=== PATIENT | male | born 1940 | race Caucasian/White ===

== ENCOUNTER 2019-01-03 11:06 | Inpatient (IN) ==
[2019-01-03] MEDS ORDERED: ALBUT/IPRATROP 3MG/0.5MG NEB 3 ML VIAL NEB STA (11:43)
[2019-01-03] MEDS ORDERED: methylPREDNISolone 125 MG/2 ML VIAL IV STA (11:43)
[2019-01-03 11:55] LABS: Basophils # (auto) 0.02 K/uL (0-0.2); Basophils % (auto) 0.1 %; Eosinophils # (auto) 0.02 K/uL (0-0.5); Eosinophils % (auto) 0.1 %; Hematocrit (blood only) 36.7 % (42-52); Hemoglobin 12.8 g/dL (14.0-18.0); Immature Granulocytes # (auto) 0.23 K/uL (0.00-0.02); Immature Granulocytes % (auto) 1.3 %; Lymphocytes # (auto) 1.16 K/uL (1.2-3.4); Lymphocytes % (auto) 6.4 %; Mean Corpuscular Hemoglobin 28.9 pg (25-34); Mean Corpuscular Hgb Conc 34.9 g/dL (32-36); Mean Corpuscular Volume 82.8 fL (80-100); Mean Platelet Volume 9.4 fL (7.4-10.4); Neutrophils # (auto) 14.75 K/uL (1.4-6.5); Neutrophils % (auto) 81.1 %; Platelet Count 427 K/uL (130-400); RDW Coefficient of Variation 13.7 % (11.5-14.5); RDW Standard Deviation 41.7 fL (36.4-46.3); Red Blood Count 4.43 M/uL (4.7-6.1); White Blood Count 18.18 K/uL (4.8-10.8)
[2019-01-03] MEDS ORDERED: SODIUM CHLORIDE 0.9% 1000ML 1,000 ML IV SCH (12:00)
[2019-01-03 12:04] LABS: INR 1.2 (0.9-1.1); Partial Thromboplastin Ratio 1.1; Partial Thromboplastin Time 30.8 Seconds (21.0-31.0); Prothrombin Time 12.6 Seconds (9.0-12.0)
--- NOTE | 2019-01-03 12:10 | XRay Report ---
XR chest 1V portable HISTORY: Shortness of breath. COMPARISON: None. FINDINGS: No pleural effusions. No pneumothorax. The heart is mildly enlarged. Focal left upper lobe airspace opacity. Additional small patchy airspace opacities within the right upper lobe and left nargis g base. There is mild interstitial thickening within the lungs. IMPRESSION: Bilateral airspace opacities, left greater than right. This favors a pneumonia. Recommend follow-up t o ensure resolution. There is also mild interstitial thickening and cardiomegaly. Superimposed pulmon emily vascular congestion cannot be excluded. Electronically signed by: Edward Phoenix M.D. 01/03/2019 12:08 PM
[2019-01-03 12:14] LABS: Albumin Level 2.6 gm/dl (3.4-5.0); BUN Creatinine Ratio 17.7 (10-20); Creatinine Clr Calc Pharmacy 64.7 ml/min; Est GFR (African American) 75.8; Est GFR (Non-African American) 65.4; Potassium 3.6 mmol/L (3.5-5.1)
[2019-01-03 12:33] LABS: Albumin Globulin Ratio 0.6 (0.9-2); Bilirubin,Total 1.4 mg/dl (0.2-1); Globulin 4.7 gm/dl (2.5-4.0); Total Protein 7.3 gm/dl (6.4-8.2); Troponin I 0.058 ng/ml (0-0.045)
[2019-01-03 13:14] LABS: Influenza A virus by PCR Neg for Influ A (Neg); Influenza B virus by PCR Neg for Influ B (Neg)
[2019-01-03] MEDS ORDERED: LEVOFLOXACIN/D5W 750 MG/150 ML BAG IV SCH (13:15)
[2019-01-03] MEDS ORDERED: OPTIRAY 320 125ml IV PRN (13:46)
--- NOTE | 2019-01-03 13:56 | CT Scan Report ---
CT ANGIOGRAM OF THE CHEST CLINICAL HISTORY: Fever, cough, shortness of breath. Possible acute pulmonary embolism. COMPARISON STUDY: Chest x-ray dated 01/03/2019 TECHNIQUE: Following the IV administration of 120 mL of Optiray-320, CT angiogram of the thorax was p erformed from the thoracic inlet to the lung bases utilizing the pulmonary embolus protocol. Images a re reviewed in the axial, sagittal, and coronal planes. IV contrast was administered without complica tion. MIP imaging was performed. A dose lowering technique was utilized adhering to the principles o f ALARA. CT DOSE: 695.39 mGy.cm FINDINGS: Visualized portions of the upper abdomen reveal probable cholelithiasis. There are borderline enlarged mediastinal lymph nodes, likely reactive. The ascending thoracic aorta measures 36 mm. There were no pulmonary artery filling defects to indicate acute pulmonary embolism. There are small bilateral pleural effusions. There are bilateral multilobar pulmonary airspace opacities, likely secondary to a multifocal pneumon ia. The area of densest parenchymal consolidation is within the left upper lobe. IMPRESSION: 1. No evidence of acute pulmonary embolism 2. Multifocal areas of parenchymal consolidation suggestive of a multilobar pneumonia. Clinical corre lation and imaging subsequent to treatment is recommended in follow-up 3. Small bilateral pleural effusions 4. Mildly prominent mediastinal lymph nodes likely reactive 5. Suspected cholelithiasis Electronically signed by: Kike Lim M.D. 01/03/2019 1:55 PM
--- NOTE | 2019-01-03 15:05 | Emergency Department Note ---
Entered by Lashon Celis acting as a scribe for Tammy House MD History of Present Illness General Chief complaint: Cough Stated complaint: DOC REF pneumonia Source: patient History of Present Illness Onset (ago): hour(s) (several) Location: chest Pain Consistency: + other (resolving) Maximum Pain Intensity: 0 Quality: + other (low oxygen level) Associated symptoms: + fever/chills The patient is a 78 year old male who presents to the Emergency Room with complaints of a resolving low oxygen level of 88 several hours ago this morning while at an appointment with his PCP. The patients states he is currently being treated for pneumonia. He notes taking a z-pack and medication beginning two days ago. The patient reports a fever of 101.9 this morning. He reports a history of smoking, stating he quit 25 years ago. The patient states he received a flu shot this year. Home Medications Home Medications Medication Instructions Recorded Confirmed Type atorvastatin 80 mg tablet 80 mg PO HS tab 11/26/18 01/03/19 History lisinopril 5 mg tablet 5 mg PO DAILY tab 11/26/18 01/03/19 History aspirin 81 mg PO DAILY 01/03/19 01/03/19 History metoprolol succinate 50 mg PO DAILY 01/03/19 01/03/19 History omega 9-crx-eyt-fish oil [Fish Oil] 1 cap PO BID 01/03/19 01/03/19 History Allergies Allergy/AdvReac Type Severity Reaction Status Date / Time Penicillins Allergy Intermediate TONGUE Unverified 01/03/19 12:38 SWELLING Past Med/Surg History Medical History HTN (hypertension) (Chronic) Systolic CHF (Chronic) Ischemic cardiomyopathy (Chronic) CAD (coronary artery disease) (Chronic) 1994-anterior wall [place], no intervention Dyslipidemia (Chronic) DM type 2 (diabetes mellitus, type 2) (Chronic) Surgical History History of cataract surgery (Chronic) History of appendectomy (Chronic) Family History Sister Multiple myeloma Brother Heart disease Social History Preferred Language: Tajik Communication Ability: Effective Beliefs That Will Affect Care: None Current Living Situation: Spouse Other Information That Helps Us Care for You: No Feels Safe at Home: Yes Safety Concerns: Feels Safe At This Time Smoking Status: Former smoker Hx Alcohol Use: No Hx Substance Use: No Review of Systems See HPI for pertinent positives & negatives. and A total of 10 systems reviewed and were otherwise negative Physical Exam Vital Signs Vital Signs - 24 hr 01/03/19 11:11 01/03/19 11:46 01/03/19 11:53 Temperature 36.6 C Temperature Source Oral Sepsis Recent Fever Within 48 Hours Yes Sepsis New/Unexplained Change in Mental Status No Sepsis Action Taken by Nursing Physician Notified Oxygen Flow Rate - Titration 2 Pulse Oximetry Post Tiitration 95 Pulse Rate 115 H Pulse Rate [Right Finger] 97 H Pulse Rhythm [Right Finger] Pulse Strength [Right Finger] Respiratory Rate 22 20 Respiratory Effort / Characteristics Non-Labored Spontaneous Respiratory Depth Respiratory Pattern Blood Pressure 128/81 Blood Pressure [Right Arm] Blood Pressure Mean 96 Blood Pressure Mean [Right Arm] Blood Pressure Position Sitting Blood Pressure Position [Right Arm] Pulse Oximetry 92 95 95 Oxygen Delivery Method Room Air Nasal Cannula Nasal Cannula Oxygen Flow Rate 2 2 01/03/19 12:29 Temperature 36.8 C Temperature Source Oral Sepsis Recent Fever Within 48 Hours Sepsis New/Unexplained Change in Mental Status Sepsis Action Taken by Nursing Oxygen Flow Rate - Titration Pulse Oximetry Post Tiitration Pulse Rate Pulse Rate [Right Finger] 103 H Pulse Rhythm [Right Finger] Regular Pulse Strength [Right Finger] Normal Respiratory Rate 40 H Respiratory Effort / Characteristics Non-Labored Spontaneous Respiratory Depth Normal Respiratory Pattern Regular Blood Pressure Blood Pressure [Right Arm] 124/70 Blood Pressure Mean Blood Pressure Mean [Right Arm] 88 Blood Pressure Position Blood Pressure Position [Right Arm] Sitting Pulse Oximetry 95 Oxygen Delivery Method Nasal Cannula Oxygen Flow Rate 2 Vital signs reviewed. General: Chronically ill-appearing elderly male, in no significant distress with moist cough. HEENT: No scleral icterus, PERRLA, neck supple. Atraumatic. Cardiovascular: Regular rate and rhythm, no extra sounds. Pulmonary: Hoarse breath sounds bilaterally, normal work of breathing. Abdomen: Soft, nontender, nondistended, positive bowel sounds. Musculoskeletal: Atraumatic, no peripheral edema. Neurologic: Patient awake alert and oriented x 3 Skin: Warm, dry, no rash Course 1140: Past medical records reviewed. The patient was evaluated in room A09. A complete history and physical exam was performed. 1315: Upon reevaluation, the patient was resting more comfortably. I discussed findings and results with the patient. 1323: Upon reevaluation, I discussed findings and results with the patient. He verbalized agreement of the treatment plan. I spoke with Dr. Martell of the [facility]. The patient will be evaluated for further management and care. Administered Medications Atorvastatin Calcium (Lipitor) 80 mg PO HS ERNESTO Stop: 02/02/19 20:59 Last Admin: 01/03/19 20:36 Dose: 80 mg Documented by: [id number] Enoxaparin Sodium (Lovenox) 40 mg SQ Q24H ERNESTO Stop: 02/02/19 16:59 Last Admin: 01/03/19 17:58 Dose: 40 mg Documented by: [id number] Fish Oil ([place]-3 (Purified Fish Oil)) 1 gm PO BID ERNESTO Stop: 02/02/19 20:59 Last Admin: 01/03/19 20:37 Dose: 1 gm Documented by: [id number] Doxycycline Hyclate 100 mg/ (Dextrose) 110 mls @ 50 mls/hr IV BID ERNESTO Stop: 01/10/19 20:59 Last Infusion: 01/03/19 23:13 Dose: 0 mls/hr Documented by: [id number] Admin: 01/03/19 20:36 Dose: 50 mls/hr Documented by: [id number] Ertapenem 1,000 mg/ Sodium (Chloride) 60 mls @ 100 mls/hr IV Q24H ERNESTO Stop: 01/10/19 17:59 Last Infusion: 01/03/19 19:00 Dose: 0 mls/hr Documented by: [id number] Admin: 01/03/19 18:20 Dose: 100 mls/hr Documented by: [id number] Insulin Aspart (Novolog Flexpen) 0 units SC ACHS ERNESTO Stop: 02/02/19 16:29 Last Admin: 01/03/19 20:39 Dose: 1 units Documented by: [id number] Cosigned by: [id number] Admin: 01/03/19 17:20 Dose: 9 units Documented by: [id number] Cosigned by: [id number] Discontinued Medications Albuterol (Duoneb) 3 ml NEB NOW STA Stop: 01/03/19 11:44 Last Admin: 01/03/19 11:53 Dose: 3 ml Documented by: [id number] Sodium Chloride (Nss 1000ml) 1,000 mls @ 150 mls/hr IV .Q6H40M ERNESTO Stop: 01/03/19 18:39 Last Infusion: 01/03/19 18:10 Dose: 0 mls/hr Documented by: [id number] Admin: 01/03/19 12:28 Dose: 150 mls/hr Documented by: [id number] Levofloxacin/Dextrose (Levaquin/D5w) 750 mg in 150 mls @ 100 mls/hr IV Q24H ERNESTO Stop: 01/10/19 13:14 Last Infusion: 01/03/19 15:42 Dose: 0 mls/hr Documented by: [id number] Admin: 01/03/19 14:10 Dose: 100 mls/hr Documented by: [id number] Ioversol (Optiray 320 125ml) 120 ml IV ONCE PRN PRN Reason: Interaction Checking Stop: 01/07/19 13:45 Last Admin: 01/03/19 13:47 Dose: 120 ml Documented by: [id number] Methylprednisolone (Solumedrol) 125 mg IV NOW STA Stop: 01/03/19 11:44 Last Admin: 01/03/19 12:28 Dose: 125 mg Documented by: [id number] Medical Decision Making Differential Diagnosis Differential diagnoses includes but is not limited to pneumonia, bronchitis, COPD/Asthma exacerbation, pneumothorax, pulmonary embolism, congestive heart failure, acute coronary syndrome Medical Records Attestation: I reviewed the patient's medical records. Home Medications Current Medication List: was personally reviewed by me Laboratory Data Attestation: I reviewed the patient's lab results. Result diagrams: 01/04/19 06:01 01/04/19 06:01 Lab Results 01/03/19 01/03/19 01/03/19 Range/Units 11:27 11:27 11:27 WBC 18.18 H (4.8-10.8) K/uL RBC 4.43 L (4.7-6.1) M/uL Hgb 12.8 L (14.0-18.0) g/dL Hct 36.7 L (42-52) % MCV 82.8 (80-100) fL MCH 28.9 (25-34) pg MCHC 34.9 (32-36) g/dL RDW Std Deviation 41.7 (36.4-46.3) fL RDW Coeff of Earl 13.7 (11.5-14.5) % Plt Count 427 H (130-400) K/uL MPV 9.4 (7.4-10.4) fL Immature Gran % (Auto) 1.3 % Neut % (Auto) 81.1 % Lymph % (Auto) 6.4 % Traill % (Auto) 11.0 % Eos % (Auto) 0.1 % Baso % (Auto) 0.1 % Immature Gran # (Auto) 0.23 H (0.00-0.02) K/uL Neut # (Auto) 14.75 H (1.4-6.5) K/uL Lymph # (Auto) 1.16 L (1.2-3.4) K/uL Traill # (Auto) 2.00 H (0.11-0.59) K/uL Eos # (Auto) 0.02 (0-0.5) K/uL Baso # (Auto) 0.02 (0-0.2) K/uL PT 12.6 H (9.0-12.0) Seconds INR 1.2 H (0.9-1.1) APTT 30.8 (21.0-31.0) Seconds PTT Ratio 1.1 Sodium 129 L (136-145) mmol/L Potassium 3.6 (3.5-5.1) mmol/L Chloride 92 L (98-107) mmol/L Carbon Dioxide 28 (21-32) mmol/L Anion Gap 8.0 (3-11) BUN 19 H (7-18) mg/dl Creatinine 1.08 (0.6-1.4) mg/dl Est Cr Clr Drug Dosing 64.7 ml/min Est GFR ( Amer) 75.8 Est GFR (Non-Af Amer) 65.4 BUN/Creatinine Ratio 17.7 (10-20) Glucose 167 H (70-99) mg/dl Estimat Average Glucose mg/dl Hemoglobin A1c (4.5-5.6) % Lactate (0.4-2.0) mmol/L Calcium 9.0 (8.5-10.1) mg/dl Total Bilirubin 1.4 H (0.2-1) mg/dl AST 75 H (15-37) U/L ALT 100 H (12-78) U/L Alkaline Phosphatase 89 (45-117) U/L Troponin I 0.058 H* (0-0.045) ng/ml Total Protein 7.3 (6.4-8.2) gm/dl Albumin 2.6 L (3.4-5.0) gm/dl Globulin 4.7 H (2.5-4.0) gm/dl Albumin/Globulin Ratio 0.6 L (0.9-2) Influenza Type A (PCR) (Neg) Influenza Type B (PCR) (Neg) 01/03/19 01/03/19 01/03/19 Range/Units 11:27 11:27 12:29 WBC (4.8-10.8) K/uL RBC (4.7-6.1) M/uL Hgb (14.0-18.0) g/dL Hct (42-52) % MCV (80-100) fL MCH (25-34) pg MCHC (32-36) g/dL RDW Std Deviation (36.4-46.3) fL RDW Coeff of Earl (11.5-14.5) % Plt Count (130-400) K/uL MPV (7.4-10.4) fL Immature Gran % (Auto) % Neut % (Auto) % Lymph % (Auto) % Traill % (Auto) % Eos % (Auto) % Baso % (Auto) % Immature Gran # (Auto) (0.00-0.02) K/uL Neut # (Auto) (1.4-6.5) K/uL Lymph # (Auto) (1.2-3.4) K/uL Traill # (Auto) (0.11-0.59) K/uL Eos # (Auto) (0-0.5) K/uL Baso # (Auto) (0-0.2) K/uL PT (9.0-12.0) Seconds INR (0.9-1.1) APTT (21.0-31.0) Seconds PTT Ratio Sodium (136-145) mmol/L Potassium (3.5-5.1) mmol/L Chloride (98-107) mmol/L Carbon Dioxide (21-32) mmol/L Anion Gap (3-11) BUN (7-18) mg/dl Creatinine (0.6-1.4) mg/dl Est Cr Clr Drug Dosing ml/min Est GFR ( Amer) Est GFR (Non-Af Amer) BUN/Creatinine Ratio (10-20) Glucose (70-99) mg/dl Estimat Average Glucose 183 mg/dl Hemoglobin A1c 8.0 H (4.5-5.6) % Lactate 1.9 (0.4-2.0) mmol/L Calcium (8.5-10.1) mg/dl Total Bilirubin (0.2-1) mg/dl AST (15-37) U/L ALT (12-78) U/L Alkaline Phosphatase (45-117) U/L Troponin I (0-0.045) ng/ml Total Protein (6.4-8.2) gm/dl Albumin (3.4-5.0) gm/dl Globulin (2.5-4.0) gm/dl Albumin/Globulin Ratio (0.9-2) Influenza Type A (PCR) Neg for Influ A (Neg) Influenza Type B (PCR) Neg for Influ B (Neg) Imaging Data Radiologist's Impression: Radiology results as stated below per my review and the radiologist's interpretation: XR chest 1V portable HISTORY: Shortness of breath. COMPARISON: None. FINDINGS: No pleural effusions. No pneumothorax. The heart is mildly enlarged. Focal left upper lobe airspace opacity. Additional small patchy airspace opacities within the right upper lobe and left lung base. There is mild interstitial thickening within the lungs. IMPRESSION: Bilateral airspace opacities, left greater than right. This favors a pneumonia. Recommend follow-up to ensure resolution. There is also mild interstitial thickening and cardiomegaly. Superimposed pulmonary vascular congestion cannot be excluded. Electronically signed by: Edward Phoenix M.D. 01/03/2019 12:[address] ANGIOGRAM OF THE CHEST CLINICAL HISTORY: Fever, cough, shortness of breath. Possible acute pulmonary embolism. COMPARISON STUDY: Chest x-ray dated 01/03/2019 TECHNIQUE: Following the IV administration of 120 mL of Optiray-320, CT angiogram of the thorax was performed from the thoracic inlet to the lung bases utilizing the pulmonary embolus protocol. Images are reviewed in the axial, sagittal, and coronal planes. IV contrast was administered without complication. MIP imaging was performed. A dose lowering technique was utilized adhering to the principles of ALARA. CT DOSE: 695.39 mGy.cm FINDINGS: Visualized portions of the upper abdomen reveal probable cholelithiasis. There are borderline enlarged mediastinal lymph nodes, likely reactive. The ascending thoracic aorta measures 36 mm. There were no pulmonary artery filling defects to indicate acute pulmonary embolism. There are small bilateral pleural effusions. There are bilateral multilobar pulmonary airspace opacities, likely secondary to a multifocal pneumonia. The area of densest parenchymal consolidation is within the left upper lobe. IMPRESSION: 1. No evidence of acute pulmonary embolism 2. Multifocal areas of parenchymal consolidation suggestive of a multilobar pneumonia. Clinical correlation and imaging subsequent to treatment is recommended in follow-up 3. Small bilateral pleural effusions 4. Mildly prominent mediastinal lymph nodes likely reactive 5. Suspected cholelithiasis Electronically signed by: Kike Lim M.D. 01/03/2019 1:55 PM ECG Data Attestation: I personally reviewed and interpreted this ECG as follows: Indication: tachycardia Rate (beats per minute): 111 ECG Intervals/blocks: Left bundle branch block and Prolonged QT (511) ECG [place]: Left axis deviation Comparison ECG Date: no prior available Blood Pressure Blood Pressure Findings: Elevated blood pressure Blood Pressure Disposition: Referred to patients primary care provider MDM Narrative This patient was evaluated and appeared to be in no significant distress. IV access was obtained and laboratory work was drawn. Patient was placed on the library monitor. IV fluids were initiated. Patient's laboratory work reveals elevated WBC at 18,000 and a mildly elevated troponin at 0.058, lactate of 1.9. EKG reveals a sinus tachycardia with a left axis deviation, left bundle branch block and prolonged QT interval peer. Patient has remained afebrile but admits to chills/sweats periodically at home. Chest x-ray was performed and is concerning for bilateral airspace opacities favoring pneumonia. Patient has already been treated with a course of a azithromycin and is currently taking what is presumed to be doxycycline. Given the outpatient regimen, CT of the chest was performed and is negative for acute PE. The multifocal areas of consolidation are suggestive of a multilobar pneumonia. Blood cultures are pending. Given the patient's penicillin allergy and recent outpatient regimens, IV Levaquin was administered. Patient's respiratory status was somewhat improved after DuoNeb and the steroids. Patient's case was discussed with the [facility] service who will evaluate the patient for further management. Impression & Plan Multifocal pneumonia Discharge Plan Visit Data *Final* Discharge Date/Time: 01/03/19 15:07 Chief Complaint: Cough Stated Complaint: DOC REF pneumonia ED Provider: Tammy House Discharge Problem: Multifocal pneumonia Patient Disposition: Admitted As Inpatient Discharge Instructions Interventions: ED Discharge Assessment Last Done: 01/03/19 15:07 The scribe's documentation has been prepared under my direction and personally reviewed by me in its entirety. I confirm that the note above accurately reflects all work, treatment, procedures, and medical decision making performed by me.
--- NOTE | 2019-01-03 15:40 | History & Physical Report ---
Date of Service January 03, 2019 Assessment & Plan (1) Sepsis: (2) Multifocal pneumonia: (3) Hypoxia: -Admit to [facility] with telemetry -Patient presenting by referral of PCP for evaluation of persistent cough, shortness of breath, fevers, hypoxia; has been being treated as an outpatient fo r pneumonia with azithromycin and clindamycin -On presentation, WBC 18 K, tachycardic, tachypneic; afebrile, BP stable, no lactic acidosis -In the ED, found to be mildly hypoxic on room air at 88%, this improved with 2 L of oxygen via nasal cannula -CT chest showing multifocal pneumonia -S/P IV Levaquin in the ED; given prolonged QTC and penicillin allergy, will place patient on IV ertapenem and IV doxycycline -Follow blood cultures -Pulmonary toilet with nebs, flutter valve, incentive spirometer, chest PT (4) Elevated troponin: -Troponin mildly elevated at 0.058 -Likely demand ischemia secondary to acute illness/sepsis -No reports of chest pain, EKG without acute ST changes -Continue cycle cardiac enzymes (5) Elevated LFTs: -T bili 1.4, AST 75, ALT 100, alk phos 89 -Likely due to acute illness -Monitor LFTs (6) CAD (coronary artery disease): -Appears stable, no reports of chest pain -Continue aspirin, statin, DONAVON inhibitor, beta-lux (7) Ischemic cardiomyopathy: (8) Systolic CHF: -EF ~20% -Examines to be euvolemic on exam -Does not take routine diuretics (9) HTN (hypertension): -BP controlled, continue lisinopril and metoprolol (10) DM type 2 (diabetes mellitus, type 2): -Hgb A1c 7.5 01/2018; glucose 167 on labs today -Does not take any oral agents at home -Recheck Hgb A1c -Utilize NovoLog protocol hospitalized (11) Prolonged QT interval: -QTc 511 -Monitor daily EKG -Avoid QTC prolonging agents (12) DVT prophylaxis: -SQ Lovenox History of Present Illness Chief Complaint: Cough, shortness of breath Primary Care Provider: Scott Lugo MD 78-year-old male who presents to the ED by referral of outpatient PCP for evaluation of cough and shortness of breath. Patient reports symptoms began about 1 week ago. He was started on azithromycin on 12/30 and then was seen in the clinic on 12/31 and started on clindamycin. CXR showed left lower lobe opacity. Patient was spiking fevers of around 102 degrees prior to being on antibiotics, now has been running persistent low-grade fevers. Was seen in the clinic today and found to be mildly hypoxic at 89 to 91% on room air. Patient was then sent to the ED for further evaluation. He reports a cough that has been productive for white/yellow sputum. He reports shortness of breath with minimal exertion. He denies chest pain. No lightheadedness or dizziness. He denies chest pain. Appetite has been poor however denies abdominal pain, nausea, vomiting, diarrhea. No urinary symptoms. In the ED, WBC 18 K, tachycardic, tachypneic. Afebrile, no lactic acidosis. CT chest showing multifocal pneumonia. Patient was given IV Levaquin, IV Solu-Medrol, IVF, nebulizer treatment. Allergies Allergy/AdvReac Type Severity Reaction Status Date / Time Penicillins Allergy Intermediate TONGUE Unverified 01/03/19 12:38 SWELLING Home Medications Home Medications Medication Instructions Recorded Confirmed Type atorvastatin 80 mg tablet 80 mg PO HS tab 11/26/18 01/03/19 History lisinopril 5 mg tablet 5 mg PO DAILY tab 11/26/18 01/03/19 History aspirin 81 mg PO DAILY 01/03/19 01/03/19 History metoprolol succinate 50 mg PO DAILY 01/03/19 01/03/19 History omega 5-vfq-kir-fish oil [Fish Oil] 1 cap PO BID 01/03/19 01/03/19 History Past Med/Surg History Medical History HTN (hypertension) (Chronic) Systolic CHF (Chronic) Ischemic cardiomyopathy (Chronic) CAD (coronary artery disease) (Chronic) 1995-anterior wall MD, no intervention Dyslipidemia (Chronic) DM type 2 (diabetes mellitus, type 2) (Chronic) Surgical History History of cataract surgery (Chronic) History of appendectomy (Chronic) Family History Sister Multiple myeloma Brother Heart disease Social History Preferred Language: Mohawk Communication Ability: Effective Beliefs That Will Affect Care: None Current Living Situation: Spouse Other Information That Helps Us Care for You: No Feels Safe at Home: Yes Safety Concerns: Feels Safe At This Time Smoking Status: Former smoker Hx Alcohol Use: No Hx Substance Use: No Review of Systems Review of Systems: ROS per HPI, all other systems reviewed and negative Physical Exam Constitutional: WD/WN, vitals as above Eyes: PERRL, conjunctivae normal, anicteric sclerae ENMT: external ear and nose normal, oropharynx normal Respiratory: + tachypneic (Mild); no respiratory distress Auscultation: + diminished lung sounds and + rales (Bilateral mid to lower lung diallo, L > R ) Cardiovascular: Rate/Rhythm: regular rhythm and + tachycardic Vessels: normal peripheral pulses Extremities: no edema Gastrointestinal (Abdomen): normal bowel sounds, soft, nontender, no hepatosplenomegaly Musculoskeletal: no cyanosis or clubbing, extremities motor strength 5/5 Skin: no rashes, warm and dry Neurologic: PERRL, EOMI, accommodation nl, no face palsy, no dysarthria Psychiatric: A+Ox3, euthymic affect Results & Data Vital Signs (Past 12 Hours) Vital Signs Temp Pulse Pulse Resp BP BP Pulse Ox 01/03/19 14:10 100 H 32 H 132/76 91 01/03/19 12:29 36.8 C 103 H 40 H 124/70 95 01/03/19 11:53 97 H 20 95 01/03/19 11:46 95 01/03/19 11:11 36.6 C 115 H 22 128/81 92 Laboratory Results Short CBC 01/03/19 Range/Units 11:27 WBC 18.18 H (4.8-10.8) K/uL Hgb 12.8 L (14.0-18.0) g/dL Hct 36.7 L (42-52) % Plt Count 427 H (130-400) K/uL BMP 01/03/19 11:27 Sodium 129 L Potassium 3.6 Chloride 92 L Carbon Dioxide 28 BUN 19 H Creatinine 1.08 Glucose 167 H Calcium 9.0 Cardiac Enzymes 01/03/19 Range/Units 11:27 Troponin I 0.058 H* (0-0.045) ng/ml Liver Function 01/03/19 Range/Units 11:27 Total Bilirubin 1.4 H (0.2-1) mg/dl AST 75 H (15-37) U/L ALT 100 H (12-78) U/L Alkaline Phosphatase 89 (45-117) U/L Albumin 2.6 L (3.4-5.0) gm/dl Diagnostic Findings CXR IMPRESSION: Bilateral airspace opacities, left greater than right. This favors a pneumonia. Recommend follow-up to ensure resolution. There is also mild interstitial thickening and cardiomegaly. Superimposed pulmonary vascular congestion cannot be excluded. CTA CHEST IMPRESSION: 1. No evidence of acute pulmonary embolism 2. Multifocal areas of parenchymal consolidation suggestive of a multilobar pneumonia. Clinical correlation and imaging subsequent to treatment is recommended in follow-up 3. Small bilateral pleural effusions 4. Mildly prominent mediastinal lymph nodes likely reactive 5. Suspected cholelithiasis Code Status & VTE Plan Code Status Patient is a DNR as per my discussion with him. VTE Prophylaxis Plan VTE Prophylaxis will be ordered: Yes Supervising Physician Co-Signing Physician Notes I have seen and examined the patient with nurse practitioner and would like to comment that Patient has: Sepsis secondary to Multifocal Pneumonia, with hypoxia -originally placed on zithromax 12/30/18, but then worsening so started on clindamycin 300 mg BID on 12/31/18 -01/01/19 outpatient notes that the 12/31/18 outpatient CXR as wet read showing LLL opacity) -01/03/19 admission CXR: Bilateral airspace opacities, left greater than right. This favors a pneumonia. Recommend follow-up to ensure resolution. There is also mild interstitial thickening and cardiomegaly. Superimposed pulmonary vascular congestion cannot be excluded. -started on methylprednisolone and Levofloxacin 750 mg in the ED and nebulizer treatment with supplementary oxygen -CTA angio chest ordered by ED provider Multifocal areas of parenchymal consolidation suggestive of a multilobar pneumonia. Clinical correlation and imaging subsequent to treatment is recommended in follow-up. Small bilateral pleural effusions. Mildly prominent mediastinal lymph nodes likely reactive. Suspected cholelithiasis -Levaquin was given in the ED. Hold further Levaquin and increase IV antibiotic coverage Transaminitis -follow liver enzymes -Suspected cholelithiasis as per CTA imaging -but no abdominal pain Chronic systolic congestive heart failure -05/2017 echocardiogram with qualitative LV ejection fraction is less than 20%. There is a large wall motion abnormality involving the septum, inferior, posterior palmer, and apex with severe hypokinesis to akinesis of the segments. The remaning left ventricular myocardial wall segments are hypokinetic. Mild mitral regurgitation is present Elevated troponin Chronic left bundle branch block CAD History of Ischemic Cardiomyopathy -admission troponin of 0.058, trend troponin, monitor on telemetry -admission EKG of sinus tachycardia with left axis deviation and left bundle branch block (outpatient written EKG results from describes left bundle branch block) -no acute chest pain on admission prolonged QTc on EKG -daily EKG Hypertension -continue home medications Type 2 diabetes mellitus -insulin as needed agree with other assessment and plans as documented by nurse practitioner My colleague Dr. Montez will by following the patient on 01/04/19
[2019-01-03] MEDS ORDERED: ALBUT/IPRATROP 3MG/0.5MG NEB 3 ML VIAL NEB PRN (15:56)
[2019-01-03] MEDS ORDERED: ACETAMINOPHEN 325 MG TAB PO PRN (16:09)
[2019-01-03] MEDS ORDERED: CARBOHYDRATES FOR HYPOGLYCEMIA PO PRN (16:09)
[2019-01-03] MEDS ORDERED: GLUCAGON FOR INJ 1 MG VIAL SQ PRN (16:09)
[2019-01-03] MEDS ORDERED: GLUCOSE 10 TABS/TUBE PO PRN (16:09)
[2019-01-03] MEDS ORDERED: DEXTROSE 50% 50 ML SYRINGE IV PRN (16:09)
[2019-01-03] MEDS ORDERED: GLUCOSE 40% GEL 15 GM TUBE PO PRN (16:09)
[2019-01-03] MEDS: INSULIN ASPART 100 UNITS/ML 3 ML PEN SC SCH ×2 (17:20→20:39)
[2019-01-03] MEDS: ENOXAPARIN INJ 40 MG/0.4 ML SYR SQ SCH (17:58)
[2019-01-03] MEDS: ERTAPENEM SODIUM 1,000 MG in SODIUM CHLORIDE 0.9% 50 ML IV SCH (18:20)
[2019-01-03 20:31] LABS: Sodium Random Urine 9 mmol/L; Urine Chloride < 10 mmol/L; Urine Potassium 11.8 mmol/L; Urine Sodium 9 mmol/L
[2019-01-03] MEDS: ATORVASTATIN 40 MG TAB PO SCH (20:36)
[2019-01-03] MEDS: DOXYCYCLINE HYCLATE 100 MG in DEXTROSE 5% 100 ML IV SCH (20:36)
[2019-01-03] MEDS: OMEGA-3 (PURIFIED FISH OIL) 1 GM CAP PO SCH (20:37)
[2019-01-03 23:10] LABS: BUN Creatinine Ratio 20.6 (10-20); Calcium 9.3 mg/dl (8.5-10.1); Creatinine Clr Calc Pharmacy 64.1 ml/min; Est GFR (Non-African American) 64.7
[2019-01-03 23:46] LABS: Troponin I 0.049 ng/ml (0-0.045)
[2019-01-04 06:30] LABS: Basophils # (auto) 0.01 K/uL (0-0.2); Hematocrit (blood only) 36.3 % (42-52); Hemoglobin 12.3 g/dL (14.0-18.0); Immature Granulocytes # (auto) 0.16 K/uL (0.00-0.02); Immature Granulocytes % (auto) 0.8 %; Lymphocytes # (auto) 1.02 K/uL (1.2-3.4); Lymphocytes % (auto) 5.1 %; Mean Corpuscular Hemoglobin 28.5 pg (25-34); Mean Corpuscular Hgb Conc 33.9 g/dL (32-36); Mean Platelet Volume 9.5 fL (7.4-10.4); Monocytes # (auto) 0.79 K/uL (0.11-0.59); Monocytes % (auto) 3.9 %; Neutrophils # (auto) 18.03 K/uL (1.4-6.5); Neutrophils % (auto) 90.2 %; Platelet Count 411 K/uL (130-400); RDW Coefficient of Variation 13.9 % (11.5-14.5); RDW Standard Deviation 42.8 fL (36.4-46.3); Red Blood Count 4.32 M/uL (4.7-6.1); White Blood Count 20.01 K/uL (4.8-10.8)
[2019-01-04 07:08] LABS: Estimated Average Glucose 183 mg/dl
[2019-01-04 07:10] LABS: Albumin Level 2.4 gm/dl (3.4-5.0); BUN Creatinine Ratio 24.2 (10-20); Calcium 9.2 mg/dl (8.5-10.1); Creatinine Clr Calc Pharmacy 70.3 ml/min; Est GFR (African American) 85.2; Est GFR (Non-African American) 73.6; Potassium 3.7 mmol/L (3.5-5.1)
[2019-01-04 07:20] LABS: Albumin Globulin Ratio 0.5 (0.9-2); Bilirubin,Total 0.8 mg/dl (0.2-1); Globulin 4.5 gm/dl (2.5-4.0); Total Protein 6.9 gm/dl (6.4-8.2)
[2019-01-04] MEDS: ASPIRIN 81 MG ECTAB PO SCH (08:38)
[2019-01-04] MEDS: METOPROLOL SUCC 50MG EXT REL TAB PO SCH (08:38)
[2019-01-04] MEDS: OMEGA-3 (PURIFIED FISH OIL) 1 GM CAP PO SCH ×2 (08:38→20:46)
[2019-01-04] MEDS: LISINOPRIL 5 MG TAB PO SCH (08:39)
[2019-01-04] MEDS: INSULIN ASPART 100 UNITS/ML 3 ML PEN SC SCH ×4 (08:43→21:23)
[2019-01-04] MEDS: DOXYCYCLINE HYCLATE 100 MG in DEXTROSE 5% 100 ML IV SCH ×2 (08:48→20:46)
--- NOTE | 2019-01-04 09:36 | Hospitalist Progress Note ---
Date of Service January 04, 2019 Assessment & Plan (1) Sepsis: (2) Multifocal pneumonia: (3) Hypoxia: Clinical improvement from history as noted Improved oxygenation. Currently on room air SIRS (Tachycardia, Leukocytosis) CXR and CT chest findings noted, WBC 18k to 20k today Blood cultures pending Will continue ertapenam and doxycycline for now. Get sputum culture Patient asking about possibility of discharge tomorrow. I informed him that we'll reassess tomorrow morning to determine that. Continue Pulmonary incentive spirometer, chest PT (4) Elevated troponin: Troponin mildly elevated at 0.058 on admission, trended down to 0.049 Likely demand ischemia secondary to acute illness/sepsis No reports of chest pain, EKG without acute ST changes (5) Elevated LFTs: T bili 1.4, AST 75, ALT 100, alk phos 89 on admission Mild LFT elevation likely due to acute illness (6) CAD (coronary artery disease): Continue aspirin, statin, DONAVON inhibitor, beta-lux (7) Ischemic cardiomyopathy: (8) Systolic CHF: Echo 05/2017 showed EF <20% Euvolemic exam Monitor (9) HTN (hypertension): BP controlled Continue lisinopril and metoprolol (10) DM type 2 (diabetes mellitus, type 2): Hgb A1c 7.5 01/2018; yesterday was 8 Glucose 197 this morning Does not take any oral agents at home Novolog per protocol while inpatient (11) Prolonged QT interval: QTc 511 on admission Monitor daily EKG Avoid QTC prolonging agents (12) DVT prophylaxis: SQ Lovenox Subjective Patient seen and examined. He still has productive cough Reports frequency of cough has improved. Reports shortness of breath and conversational dyspnea has resolved. Currently on room air. Has been afebrile. Denied any chest pain Review of Systems Review of Systems: All systems reviewed and unremarkable except for mentioned above. Physical Exam Constitutional: well developed and well nourished; no acute distress and not ill appearing Eyes: PERRL, conjunctivae normal, anicteric sclerae ENMT: external ear and nose normal, oropharynx normal Respiratory: normal respiratory effort and + cough (Intermittent); no respiratory distress, no labored breathing and does not use accessory muscles Good air entry bilaterally, rales on posterior left lower lung zone Cardiovascular: RRR, no murmur, no edema Heart Sounds: normal S1 and normal S2 Gastrointestinal (Abdomen): normal bowel sounds, soft, nontender, no hepatosplenomegaly Musculoskeletal: no cyanosis or clubbing, extremities motor strength 5/5 Neurologic: PERRL, EOMI, accommodation nl, no face palsy, no dysarthria Psychiatric: A+Ox3, euthymic affect Results & Data Vital Signs (Past 12 Hours) Vital Signs Temp Pulse Pulse Resp BP BP Pulse Ox 01/04/19 07:35 36.7 C 89 16 132/79 90 01/04/19 03:29 36.3 C L 97 H 20 129/82 92 01/04/19 00:51 92 H 01/03/19 23:56 36.5 C 89 23 130/74 90 Laboratory Results Short CBC 01/03/19 01/04/19 Range/Units 11:27 06:01 WBC 18.18 H 20.01 H (4.8-10.8) K/uL Hgb 12.8 L 12.3 L (14.0-18.0) g/dL Hct 36.7 L 36.3 L (42-52) % Plt Count 427 H 411 H (130-400) K/uL BMP 01/03/19 01/03/19 01/04/19 11:27 22:47 06:01 Sodium 129 L 134 L 132 L Potassium 3.6 4.0 3.7 Chloride 92 L 97 L 97 L Carbon Dioxide 28 28 26 BUN 19 H 22 H 24 H Creatinine 1.08 1.09 0.98 Glucose 167 H 211 H 206 H Calcium 9.0 9.3 9.2 Cardiac Enzymes 01/03/19 01/03/19 01/03/19 Range/Units 11:27 16:51 22:47 Troponin I 0.058 H* 0.055 H* 0.049 H* (0-0.045) ng/ml Liver Function 01/03/19 01/04/19 Range/Units 11:27 06:01 Total Bilirubin 1.4 H 0.8 D (0.2-1) mg/dl AST 75 H 65 H (15-37) U/L ALT 100 H 97 H (12-78) U/L Alkaline Phosphatase 89 86 (45-117) U/L Albumin 2.6 L 2.4 L (3.4-5.0) gm/dl Diagnostic Findings Chest Xray Bilateral airspace opacities, left greater than right. This favors a pneumonia. Recommend follow-up to ensure resolution. There is also mild interstitial thickening and cardiomegaly. Superimposed pulmonary vascular congestion cannot be excluded. CT chest 1. No evidence of acute pulmonary embolism 2. Multifocal areas of parenchymal consolidation suggestive of a multilobar pneumonia. Clinical correlation and imaging subsequent to treatment is recommended in follow-up 3. Small bilateral pleural effusions 4. Mildly prominent mediastinal lymph nodes likely reactive 5. Suspected cholelithiasis
[2019-01-04] MEDS: ENOXAPARIN INJ 40 MG/0.4 ML SYR SQ SCH (17:21)
[2019-01-04] MEDS: ERTAPENEM SODIUM 1,000 MG in SODIUM CHLORIDE 0.9% 50 ML IV SCH (17:21)
[2019-01-04] MEDS: ATORVASTATIN 40 MG TAB PO SCH (20:46)
[2019-01-05 06:46] LABS: Hemoglobin 12.2 g/dL (14.0-18.0); Mean Corpuscular Volume 84.9 fL (80-100); Mean Platelet Volume 9.3 fL (7.4-10.4); Platelet Count 436 K/uL (130-400); RDW Coefficient of Variation 14.3 % (11.5-14.5); RDW Standard Deviation 44.1 fL (36.4-46.3); Red Blood Count 4.36 M/uL (4.7-6.1); White Blood Count 16.16 K/uL (4.8-10.8)
[2019-01-05 07:49] LABS: Albumin Level 2.2 gm/dl (3.4-5.0); BUN Creatinine Ratio 31.2 (10-20); Calcium 9.4 mg/dl (8.5-10.1); Est GFR (African American) 88.5; Est GFR (Non-African American) 76.4; Potassium 3.9 mmol/L (3.5-5.1)
[2019-01-05 07:53] LABS: Albumin Globulin Ratio 0.5 (0.9-2); Bilirubin,Total 0.7 mg/dl (0.2-1); Total Protein 6.2 gm/dl (6.4-8.2)
[2019-01-05] MEDS: LISINOPRIL 5 MG TAB PO SCH (08:24)
[2019-01-05] MEDS: DOXYCYCLINE HYCLATE 100 MG in DEXTROSE 5% 100 ML IV SCH (08:24)
[2019-01-05] MEDS: METOPROLOL SUCC 50MG EXT REL TAB PO SCH (08:24)
[2019-01-05] MEDS: OMEGA-3 (PURIFIED FISH OIL) 1 GM CAP PO SCH (08:24)
[2019-01-05] MEDS: ASPIRIN 81 MG ECTAB PO SCH (08:25)
[2019-01-05] MEDS: INSULIN ASPART 100 UNITS/ML 3 ML PEN SC SCH ×3 (08:26→17:58)
[2019-01-05] MEDS ORDERED: cefTRIAXone SODIUM 1,000 MG/50 ML BAG IV STA (14:35)
--- NOTE | 2019-01-05 14:36 | Communication Note ---
Date of Service: January 05, 2019 Patient is feeling better and eager to be discharged. Patient reported he had allergic reaction to ampicillin many years ago. Described it as some tingling sensation in his tongue. No tongue/neck swelling/hypoxia/intubation/low blood pressure/rash/hives at the time. He is not sure if he has taken any cephalosporins before. I discussed with pharmacist as well as patient Due to his prolonged QTc, cannot use fluoroquinolones Preliminary sputum culture result is negative. Patient has also been on azithro and clinda for about 1-2 days as outpatient pr ior to presentation. The option is to switch to po doxycline alone for discharge or trial of ceftriaxone now to see if patient tolerates this. Cross reactivity from studies between penicillins and 3rd gen cephalosporins are small to negligible. Patient opted for trial of ceftriaxone. Will give iv ceftriaxone and monitor over a few hours. If no reaction, will discharge on cefpodoxime and doxycycline
[2019-01-05] MEDS ORDERED: DOXYCYCLINE HYCLATE 100 MG CAP PO STA (16:34)
--- NOTE | 2019-01-05 16:55 | Discharge Summary ---
Date of Service January 05, 2019 Admission HPI Per Admitting Provider 78-year-old male who presents to the ED by referral of outpatient PCP for evaluation of cough and shortness of breath. Patient reports symptoms began about 1 week ago. He was started on azithromycin on 12/30 and then was seen in the clinic on 12/31 and started on clindamycin. CXR showed left lower lobe opacity. Patient was spiking fevers of around 102 degrees prior to being on antibiotics, now has been running persistent low-grade fevers. Was seen in the clinic today and found to be mildly hypoxic at 89 to 91% on room air. Patient was then sent to the ED for further evaluation. He reports a cough that has been productive for white/yellow sputum. He reports shortness of breath with minimal exertion. He denies chest pain. No lightheadedness or dizziness. He denies chest pain. Appetite has been poor however denies abdominal pain, nausea, vomiting, diarrhea. No urinary symptoms. In the ED, WBC 18 K, tachycardic, tachypneic. Afebrile, no lactic acidosis. CT chest showing multifocal pneumonia. Patient was given IV Levaquin, IV Solu-Medrol, IVF, nebulizer treatment. Admission Exam Per Admitting Provider Constitutional: WD/WN, vitals as above Eyes: PERRL, conjunctivae normal, anicteric sclerae ENMT: external ear and nose normal, oropharynx normal Respiratory: + tachypneic (Mild); no respiratory distress Auscultation: + diminished lung sounds and + rales (Bilateral mid to lower lung diallo, L > R ) Cardiovascular: Rate/Rhythm: regular rhythm and + tachycardic Vessels: normal peripheral pulses Extremities: no edema Gastrointestinal (Abdomen): normal bowel sounds, soft, nontender, no hepatosplenomegaly Musculoskeletal: no cyanosis or clubbing, extremities motor strength 5/5 Skin: no rashes, warm and dry Neurologic: PERRL, EOMI, accommodation nl, no face palsy, no dysarthria Psychiatric: A+Ox3, euthymic affect Principal Diagnosis Multifocal Pneumonia Elevated troponin Prolonged QTc Discharge Exam Constitutional well developed and well nourished; no acute distress Eyes PERRL, conjunctivae normal, anicteric sclerae ENMT external ear and nose normal, oropharynx normal Neck trachea midline, no thyromegaly Respiratory normal respiratory effort; no respiratory distress Good air entry bilaterally. Mild rales on left lower lung zone posteriorly Cardiovascular RRR, no murmur, no edema Gastrointestinal (Abdomen) normal bowel sounds, soft, nontender, no hepatosplenomegaly Musculoskeletal no cyanosis or clubbing, extremities motor strength 5/5 Neurologic PERRL, EOMI, accommodation nl, no face palsy, no dysarthria Psychiatric A+Ox3, euthymic affect Discharge Data Allergies Allergy/AdvReac Type Severity Reaction Status Date / Time Penicillins Allergy Intermediate TONGUE Unverified 01/03/19 12:38 SWELLING Consultations 01/03/19 13:23 ED Decision to Admit Stat Ordered Studies 01/03/19 13:07 CT angio chest PE protocol Stat 1. No evidence of acute pulmonary embolism 2. Multifocal areas of parenchymal consolidation suggestive of a bilateral multilobar pneumonia. Clinical correlation and imaging subsequent to treatment is recommended in follow-up 3. Small bilateral pleural effusions 4. Mildly prominent mediastinal lymph nodes likely reactive 5. Suspected cholelithiasis Hospital Course (1) Sepsis: (2) Multifocal pneumonia: (3) Hypoxia: Had spO2 of 88% on admission and required oxygen supplementation briefly Has been on room air for over 48hours SIRS (Was Tachycardic on admission. This has resolved. Leukocytosis -WBC was 18K on admission went up to 20K coming down, now 16K today) CT chest findings noted above Blood cultures no growth after 48h Sputum culture preliminary reported pinpoint growth and being reincubated. Patient was managed with iv ertapenem and iv doxycycline due to his past allergy to ampicillin. Due to his prolonged QTc >500, fluoroquinolones were avoided. Patient had a dose of ceftriaxone today without any allergic reaction. He is being discharged on cefpodoxime and doxycycline po for another 5 days to complete therapy (4) Elevated troponin: Troponin mildly elevated at 0.058 on admission, trended down to 0.049 Likely demand ischemia secondary to acute illness/sepsis No reports of chest pain, EKG without acute ST changes (5) Elevated LFTs: T bili 1.4, AST 75, ALT 100, alk phos 89 on admission Mild LFT elevation likely due to acute illness (6) CAD (coronary artery disease): Continue aspirin, statin, DONAVON inhibitor, beta-lux (7) Ischemic cardiomyopathy: (8) Systolic CHF: Echo 05/2017 showed EF <20% Euvolemic exam Monitor (9) HTN (hypertension): BP controlled Continue lisinopril and metoprolol home medications (10) DM type 2 (diabetes mellitus, type 2): Hgb A1c 7.5 01/2018; yesterday was 8 Glucose 197 this morning Does not take any oral agents at home Novolog per protocol while inpatient (11) Prolonged QT interval: QTc 511 on admission Avoid QTC prolonging agents Total Time Total Time Spent Total Time Spent (In Minutes): 40 Total Time Includes: Examination of the Patient, Discharge Planning and Medication Reconciliation Discharge Plan Discharge Items Patient Disposition: Home - Self-Care Reason For Visit: PNEUMONIA Discharge Diagnosis: Pneumonia Condition on Discharge: Good Activity: Resume your previous activity Non-emergency contact: Primary Care Provider Call non-emergency contact if: you have any medication questions and your symptoms worsen Follow-up/Referrals: Scott Lugo MD [Primary Care Provider] - Diet: Heart Healthy Addtl Attending Provider Instructions: Mr Oakley You came to the hospital for worsening shortness of breath and cough. You had been started on oral antibiotics in the clinic but symptoms had continued to worsen. You were also having fevers. On evaluation, you were found to have bilateral pneumonia on xray and CT scan in ER. You were started on injection antibiotics. Your symptoms quickly improved significantly and you are currently stable. You reported allergy in the past to Penicillin. You had iv ceftriaxone in the hospital and tolerated it well. You are being discharged on tablet doxycycline 100mg twice daily and Tablet cefpodoxime 200mg twice daily for 5 days to complete therapy. If symptoms worsen or you develop any of the signs of allergic reaction we discussed, please call 911 or go to nearest ER. Continue follow up with your Primary Doctor. It was a pleasure taking care of you. Pending Studies at Discharge: Yes Studies:: Final sputum culture results Stand-Alone Forms: My [facility], Smoking Cessation Medications and DC Order Prescriptions: New cefpodoxime 200 mg tablet 200 mg PO BID Qty: 10 RF: 0 doxycycline hyclate 100 mg tablet,delayed release (DR/EC) 100 mg PO BID Qty: 10 RF: 0 Continued lisinopril 5 mg tablet 5 mg PO DAILY RF: 0 atorvastatin 80 mg tablet 80 mg PO HS RF: 0 metoprolol succinate 50 mg Tablet Extended Release 24 Hr 50 mg PO DAILY RF: 0 aspirin 81 mg Tablet,Delayed Release (Dr/Ec) 81 mg PO DAILY RF: 0 Fish Oil 360 mg-144 mg- 216 mg-1,200 mg Capsule,Delayed Release(Dr/Ec) 1 cap PO BID RF: 0 Discharge Orders: Discharge Order (Routine); Ordered 01/05/19 Ordered By: Heather Russell Admission Data Admit Date/Time: 01/03/19 14:08 Attending Provider: Heather Russell I. Admit Provider: Kraig Martell Primary Care Provider: Scott Lugo Other Providers: Kraig Martell Other DC Date/Time DO NOT enter until pt leaves facility: 01/05/19 17:59
== END 2019-01-05 17:59 | disposition home or self-care (01) | DRG 871 ==
LOC: ED 11:06 → SUATTDRO 14:08 → 2N 14:08

== ENCOUNTER 2019-04-04 14:08 | Inpatient (IN) ==
[2019-04-04 14:37] LABS: Basophils # (auto) 0.04 K/uL (0-0.2); Basophils % (auto) 0.6 %; Eosinophils # (auto) 0.33 K/uL (0-0.5); Eosinophils % (auto) 4.9 %; Hematocrit (blood only) 43.3 % (42-52); Hemoglobin 14.5 g/dL (14.0-18.0); Immature Granulocytes # (auto) 0.02 K/uL (0.00-0.02); Immature Granulocytes % (auto) 0.3 %; Lymphocytes # (auto) 1.95 K/uL (1.2-3.4); Lymphocytes % (auto) 28.7 %; Mean Corpuscular Hgb Conc 33.5 g/dL (32-36); Mean Corpuscular Volume 86.6 fL (80-100); Mean Platelet Volume 9.3 fL (7.4-10.4); Monocytes # (auto) 0.64 K/uL (0.11-0.59); Monocytes % (auto) 9.4 %; Neutrophils # (auto) 3.82 K/uL (1.4-6.5); Neutrophils % (auto) 56.1 %; Platelet Count 343 K/uL (130-400); RDW Coefficient of Variation 13.8 % (11.5-14.5); RDW Standard Deviation 43.4 fL (36.4-46.3)
--- NOTE | 2019-04-04 14:50 | XRay Report ---
XR chest 1V portable HISTORY: stroke symptoms COMPARISON: Chest 01/03/2019. FINDINGS: The heart remains enlarged. Interstitial and vascular thickening consistent with mild pulmo nary edema. This has improved. Interval improvement in the left basilar densities suggesting atelecta sis. No new focal lung consolidations. No pleural effusions. No pneumothorax. IMPRESSION: Cardiomegaly with mild interstitial pulmonary edema. ACT 112: Negative or not required by law. Electronically signed by: Edward Phoenix M.D. 04/04/2019 2:49 PM
[2019-04-04] MEDS ORDERED: OPTIRAY 320 125ml IV PRN (14:54)
[2019-04-04 14:56] LABS: INR 1.1 (0.9-1.1); Partial Thromboplastin Time 27.3 Seconds (21.0-31.0); Prothrombin Time 11.1 Seconds (9.0-12.0)
[2019-04-04 14:57] LABS: Albumin Level 3.5 gm/dl (3.4-5.0); BUN Creatinine Ratio 15.2 (10-20); Calcium 9.3 mg/dl (8.5-10.1); Creatinine Clr Calc Pharmacy 69.6 ml/min; Est GFR (African American) 83.2; Est GFR (Non-African American) 71.8; Potassium 4.3 mmol/L (3.5-5.1)
[2019-04-04 15:02] LABS: Albumin Globulin Ratio 0.8 (0.9-2); Bilirubin,Total 0.7 mg/dl (0.2-1); Globulin 4.2 gm/dl (2.5-4.0); Total Protein 7.7 gm/dl (6.4-8.2); Troponin I 0.015 ng/ml (0-0.045)
--- NOTE | 2019-04-04 15:04 | CT Scan Report ---
CT OF THE HEAD WITHOUT CONTRAST CLINICAL HISTORY: Stroke evaluation COMPARISON STUDY: No previous studies for comparison. CT DOSE: 729.78 mGycm TECHNIQUE: Helical axial images of the head were obtained without IV contrast. Automated exposure con trol was utilized for the study. A dose lowering technique was utilized adhering to the principles o f ALARA. FINDINGS: No acute intracranial hemorrhage, midline shift or mass effect is present. Brain volume is normal. Ventricular system is unremarkable. The basilar cisterns are patent. There are no extra-axial collections. 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 Th ere are no CT findings to suggest acute dural sinus thrombosis or acute territorial infarct. There ar e no significant calvarial abnormalities. IMPRESSION: 1. No acute intracranial findings. 2. 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 ACT 112: Negative or not required by law. Electronically signed by: Dawood John M.D. 04/04/2019 3:03 PM
--- NOTE | 2019-04-04 15:12 | CT Scan Report ---
CTA ANGIOGRAPHY OF THE HEAD CLINICAL HISTORY: Stroke. Right-sided weakness. COMPARISON STUDY: No previous studies for comparison. TECHNIQUE: Helical axial images of the head were obtained following uneventful intravenous administr ation of 119 cc of Optiray 320. Automated exposure control was utilized for the study. A dose lower ing technique was utilized adhering to the principles of ALARA. CT DOSE: 1054.38 mGycm FINDINGS: No acute intracranial hemorrhage, midline shift or mass effect is present. Ventricular syst em is unremarkable. A hypodensity within the left parieto-occipital region is better depicted on the head CT. The bilateral M1, M2, A1 and A2 segments are patent. No intracranial aneurysm, thrombus or a brupt vessel cut off is noted. There is mild plaque within the bilateral cavernous carotids. Posterio r circulation is intact. IMPRESSION: Unremarkable CTA of the head for age. ACT 112: Negative or not required by law. Electronically signed by: Dawood John M.D. 04/04/2019 3:11 PM
--- NOTE | 2019-04-04 15:28 | CT Scan Report ---
CT ANGIOGRAM OF THE NECK CLINICAL HISTORY: Strokelike symptoms. COMPARISON STUDY: No priors. TECHNIQUE: Following the IV administration of 119 of Optiray 320, CT angiogram of the neck was perfor med from the aortic arch to the skull base. Images are reviewed in the axial, sagittal, and coronal p lanes. 3-D MIPS images are created and assessed. IV contrast was administered without complication. A ll measurements were calculated based on NASCET criteria. A dose lowering technique was utilized adh ering to the principles of ALARA. FINDINGS: Thoracic aorta: There is mild atherosclerotic calcification of the thoracic aorta. Visualized portion s of the thoracic aorta are normal in caliber. The aortic arch demonstrates standard 3-vessel anatomy . Right carotid arterial system: The right common carotid artery is widely patent, as are the left inte rnal and external carotid arteries. Plaque is noted in the carotid bulb. Left carotid arterial system: The left common carotid artery is widely patent, as are the left dental intern al and external carotid arteries. Plaque is noted in the carotid bulb. Vertebral arteries: The vertebral arteries are widely patent and codominant. Subclavian arteries: Widely patent bilaterally. Intracranial vasculature: The visualized intracranial vessels at the skull base are patent. Jugular veins: Widely patent bilaterally. Brain parenchyma: The visualized brain parenchyma the skull base is within normal limits. Lung apices: Partially visualized upper lobe lung parenchyma appears clear. Soft tissues: The visualized pharyngeal soft tissues are normal in appearance noting angiographic pha se technique. The oropharyngeal airway appears widely patent. The salivary and thyroid glands are nor mal in appearance. No cervical lymphadenopathy is seen. Skeletal structures: The skeletal structures are osteopenic. The visualized calvarium at the skull ba se appears intact. The imaged cervical spine is maintained noting multilevel spondylosis. No lytic or blastic lesion is seen. IMPRESSION: Unremarkable CT angiogram of the neck. ACT 112: Negative or not required by law. Electronically signed by: Raudel Jackson M.D. 04/04/2019 3:27 PM
[2019-04-04 15:32] LABS: Appearance Urine Clear (Clear); Bilirubin Urine Negative (Negative); Blood Urine Negative (Negative); Color Urine Yellow; Glucose Urine UA Negative (Negative); Ketones Urine Negative (Negative); Leukocyte Esterase Urine Negative (Negative); Nitrite Urine Negative (Negative); Protein Urine Negative (Negative); Specific Gravity Urine 1.025 (1.000-1.030); Urobilinogen Urine Negative (Negative)
[2019-04-04 15:38] LABS: Lyme Ab IgM w/WB Rflx Negative (Negative)
[2019-04-04 15:42] LABS: Lyme Ab IgG w/WB Rflx Positive (Negative)
--- NOTE | 2019-04-04 16:30 | History & Physical Report ---
Date of Service April 04, 2019 Assessment & Plan (1) Stroke-like symptoms: This is a 78yo M with a PMH of CAD, HTN, diet controlled DM II and other medical problems listed below who presents with strokelike symptoms starting early this morning. -Developed dysarthria and left sided facial droop early this morning. 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 CTA head/neck unremarkable for age -ED physician discussed case with Dr. Umaña who recommends further stroke up with MRI brain with and without contrast, echo with bubble study and dual anti platelet therapy -Patient already takes baby aspirin. Will give dose of Plavix today. 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 Will start prednisone 60mg daily (2) DM type 2 (diabetes mellitus, type 2): A1c of 8 in Jan 2019. Will repeat -Diet controlled at home -BSG ACHS with SSI if needed (3) CAD (coronary artery disease): Anterior wall NH in - no intervention -No chest pain. Continue aspirin, statin, toprol (4) HTN (hypertension): Normotensive -Allow for permissive HTN in the setting of possible ischemic CVA - holding metoprolol and lisinopril (5) Systolic CHF: (6) Ischemic cardiomyopathy: 2D echo from May 2017 with severely dilated LV with EF fraction less than 20% (severely reduced). There is a large wall motion abnormality involving the septum, inferior, posterior palmer and apex with severe hypokinesis to akinesis of the segments -Euvolemic on exam. No complaints of shortness of breath, orthopnea or PND -Low-sodium diet. Monitor volume status closely DVT Ppx: SQ lovenox Code status: DNR per discussion with patient PCP: Brittney Dispo: Admitted to PCU. Discharge planning ordered per stroke set protocol. Patient seen in collaboration with Dr. Norris. Please see addendum. History of Present Illness Chief Complaint: stroke like symptoms Primary Care Provider: Scott Lugo MD This is a 78yo M with a PMH of CAD, HTN, diet controlled DM II and other medical problems listed below who presents with strokelike symptoms starting early this morning. Patient states he woke up early around 0400 and was coughing with sputum production when his woke up to see if he was okay. When responding and attempting to say "I am okay," patient's words came out jumbled. was concerned and wanted to bring patient into ED but he wanted to continue practicing the phrase to see if speech issue would resolve on its own. also noted left facial droop and patient endorses difficulty swallowing at this time as well. Patient went back to sleep for few hours and upon waking, still had intermittent difficulty with expressive speech. States that he continued to "slurred" words and had a tingling sensation on right side of upper lip. Eventually was agreeable to coming to ED for further evaluation in the early afternoon. In ED, patient found to still have left-sided facial droop and some dysarthria. Still also experiencing paresthesias above right lip. Denies any weakness or difficulty with ambulation. No known stroke history. Denies any fever, chills, lightheadedness, visual changes, chest pain, palpitations, shortness of breath, nausea, vomiting, abdominal pain, dysuria, diarrhea or constipation. Does endorse malaise, fever and chills last week from to Sunday, which resolved on Sunday. Followed up with PCP who thought patient may have had flu. Allergies Allergy/AdvReac Type Severity Reaction Status Date / Time Penicillins Allergy Intermediate TONGUE Verified 04/04/19 14:50 SWELLING Home Medications Home Medications Medication Instructions Recorded Confirmed Type atorvastatin 80 mg tablet 80 mg PO DAILY tab 11/26/18 04/04/19 History lisinopril 5 mg tablet 5 mg PO DAILY tab 11/26/18 04/04/19 History Fish Oil 1 cap PO BID 01/03/19 04/04/19 History aspirin 81 mg PO DAILY 01/03/19 04/04/19 History metoprolol succinate 50 mg PO DAILY 01/03/19 04/04/19 History Past Med/Surg History Medical History (Updated 04/04/19 @ 17:25 by Paula Finch PA-C) CAD (coronary artery disease) (Chronic) 1994-anterior wall NH, no intervention DM type 2 (diabetes mellitus, type 2) (Chronic) Dyslipidemia (Chronic) HTN (hypertension) (Chronic) Ischemic cardiomyopathy (Chronic) Systolic CHF (Chronic) Surgical History History of appendectomy (Chronic) History of cataract surgery (Chronic) Family History Sister Multiple myeloma Brother Heart disease Social History Preferred Language: Iraqi Communication Ability: Effective 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 Physical Exam Physical Exam: General Appearance: WD/WN, vitals as above, NAD, sitting up in bed, pleasant, conversing easily Head: normocephalic, atraumatic Eyes: normal inspection, PERRL, conjunctivae normal, anicteric sclerae ENT: external ear and nose normal, oropharynx normal Neck: trachea midline, no thyromegaly normal visual inspection Respiratory: lungs clear to auscultation, no wheeze, rales, rhonchi. Normal insp/exp effort, no accessory muscle use Cardiovascular: regular rate, rhythm, no murmur, normal peripheral pulses. Vessels: no JVD or carotid bruit Chest: normal inspection of chest Abdomen/GI: normal bowel sounds, soft, nontender, no hepatosplenomegaly Extremities/Musculoskelatal: no cyanosis or clubbing, extremities motor strength 5/5 Neurologic: PERRL, EOMI, accommodation nl, + left sided facial droop, mild dysarthria. CN's II-XI intact bilaterally, 5/5 strength in all extremities with full active ROM, no cerebellar abnormalities, gait intact Psychiatric: A+Ox3, euthymic affect Skin: no rashes, normal color, warm/dry Results & Data Vital Signs (Past 12 Hours) Vital Signs Temp Pulse Pulse Resp BP BP Pulse Ox 04/04/19 15:03 76 27 H 146/70 H 95 04/04/19 14:17 76 19 143/94 H 97 04/04/19 14:10 36.3 C L 76 20 167/84 H 95 Laboratory Results Short CBC 04/04/19 Range/Units 14:25 WBC 6.80 (4.8-10.8) K/uL Hgb 14.5 (14.0-18.0) g/dL Hct 43.3 (42-52) % Plt Count 343 (130-400) K/uL BMP 04/04/19 14:25 Sodium 139 Potassium 4.3 Chloride 107 Carbon Dioxide 29 BUN 15 Creatinine 1.00 Glucose 132 H Calcium 9.3 Cardiac Enzymes 04/04/19 Range/Units 14:25 Troponin I 0.015 (0-0.045) ng/ml Liver Function 04/04/19 Range/Units 14:25 Total Bilirubin 0.7 (0.2-1) mg/dl AST 16 (15-37) U/L ALT 26 (12-78) U/L Alkaline Phosphatase 87 (45-117) U/L Albumin 3.5 (3.4-5.0) gm/dl Urine 04/04/19 Range/Units 15:17 Urine Color Yellow Urine Appearance Clear (Clear) Urine pH 5.0 (4.5-7.5) Ur Specific Mitchell 1.025 (1.000-1.030) Urine Protein Negative (Negative) Urine Glucose (UA) Negative (Negative) Diagnostic Findings CT head: IMPRESSION: 1. No acute intracranial findings. 2. 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 CTA head: IMPRESSION: Unremarkable CTA of the head for age. CTA neck: IMPRESSION: Unremarkable CT angiogram of the neck. CXR: IMPRESSION: Cardiomegaly with mild interstitial pulmonary edema. Code Status & VTE Plan VTE Prophylaxis Plan VTE Prophylaxis will be ordered: Yes Supervising Physician Co-Signing Physician Notes Attending addendum: The patient was seen and examined in the emergency room in presence of the He is a 78-year-old male with significant past medical history of CAD, ischemic cardiomyopathy with EF of 20%, diet-controlled diabetes and other medical problems as mentioned in H&P was admitted with strokelike symptoms Initial symptoms started with dysarthria and left facial droop early in the morning and has had recurrence of the symptoms later on His dysarthria has been improving but facial droop on the left side remains there Denies any other symptoms On examination No apparent distress at rest Has minimal left facial droop Hemodynamically stable Chest-clear to auscultate bilaterally Heart-S1-S2, regular Abdomen-soft, benign, nontender, bowel sounds present Extremities-negative for any edema 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 Has left facial droop without any other sensory and motor deficiency Admission labs and imaging studies noted Initial stroke work-up including CT scan of the head was only remarkable for 2.2 cm hypodensity within the left parieto-occipital region favoring old infarct Neurology consulted, MRI of the head has been ordered and echocardiogram will be done Started with steroid for possible left facial palsy. Agree with assessment and plan as outlined above by LIBBY Peña Dr
--- NOTE | 2019-04-04 17:30 | Electrocardiogram Report ---
Test Reason : Blood Pressure : / mmHG Vent. Rate : 074 BPM Atrial Rate : 074 BPM P-R Int : 220 ms QRS Dur : 170 ms QT Int : 436 ms P-R-T Axes : 039 -39 071 degrees QTc Int : 483 ms Sinus rhythm with 1st degree A-V block Left axis deviation Non-specific intra-ventricular conduction delay Abnormal ECG When compared with ECG of 05-JAN-2019 21:23, Premature atrial complexes are no longer Present Confirmed by Gregor Dietz ([id number]) on 04/04/2019 5:30:01 PM Referred By: Confirmed By:Vicente Dietz
[2019-04-04] MEDS ORDERED: ACETAMINOPHEN 325 MG TAB PO PRN (18:05)
[2019-04-04] MEDS ORDERED: PHARMACIST DISCHARGE MED REC CONSULT PRN (18:05)
[2019-04-04] MEDS ORDERED: POLYETHYLENE (MIRALAX) 17 GM PACK PO PRN (18:05)
--- NOTE | 2019-04-04 18:51 | Emergency Department Note ---
Entered by Mandie Sandoval acting as a scribe for History of Present Illness General Chief complaint: Stroke/CVA Symptoms Stated complaint: STROKE LIKE SYMPTOMS Time Seen by Provider: 04/04/19 14:24 Source: patient and family History of Present Illness Onset (ago): hour(s) 10 Location: head Pain Consistency: + other (episode) Quality: + other (stroke symptoms) Associated symptoms: + denies other symptoms (difficulty walking), + cough and + other (difficulty speaking, left side facial droop, right upper lip numbness); no headaches, no nausea/vomiting (vomiting) and no weakness The patient is a 78 year old male who presents to the Emergency Room with complaints of an episode of stroke symptoms starting 10 hours ago. The patients states that she heard him at 4 AM out in the kitchen choking. She states that she got up to go check on him and he was just coughing phlegm. She states that he was trying to talk to her, but his speech was garbled. She reports that she wanted to bring him here then, but he said no. She notes that that was the o nly thing she could make out. She states that when he came back to bed about 10- 15 minutes later, he was able to speak normally. She reports that he apologized for yelling at her. The patients states that when she got up this morning then, she felt like the left side of his mouth was dropping. She reports that if he speaks slowly you can understand him, but his speech is still slurred. She n otes that it has gotten better throughout the day, but she finally was able to talk him into coming. The patient complains of right upper lip numbness. He notes that he takes 81 mg of Aspirin, but denies any other blood thinners. The patient denies vomiting, difficulty walking, headache, weakness, and a history of a stroke. Home Medications Home Medications Medication Instructions Recorded Confirmed Type atorvastatin 80 mg tablet 80 mg PO DAILY tab 11/26/18 04/04/19 History lisinopril 5 mg tablet 5 mg PO DAILY tab 11/26/18 04/04/19 History Fish Oil 1 cap PO BID 01/03/19 04/04/19 History aspirin 81 mg PO DAILY 01/03/19 04/04/19 History metoprolol succinate 50 mg PO DAILY 01/03/19 04/04/19 History Allergies Allergy/AdvReac Type Severity Reaction Status Date / Time Penicillins Allergy Intermediate TONGUE Verified 04/04/19 14:50 SWELLING Past Med/Surg History Medical History (Updated 04/04/19 @ 17:25 by Paula Finch PA-C) CAD (coronary artery disease) (Chronic) 1994-anterior wall NC, no intervention DM type 2 (diabetes mellitus, type 2) (Chronic) Dyslipidemia (Chronic) HTN (hypertension) (Chronic) Ischemic cardiomyopathy (Chronic) Systolic CHF (Chronic) Surgical History History of appendectomy (Chronic) History of cataract surgery (Chronic) Family History Sister Multiple myeloma Brother Heart disease Social History Preferred Language: Cypriot Communication Ability: Effective Installation Tech Required: No Beliefs That Will Affect Care: None marital status: Current Living Situation: Spouse Other Information That Helps Us Care for You: No Feels Safe at Home: Yes Safety Concerns: Feels Safe At This Time Smoking Status: Former smoker Do You Dip or Chew Tobacco: No ; Second Hand Exposure: No ; Tobacco Cessation Education Requested by Patient: No Hx Alcohol Use: Yes Alcohol type: wine Alcohol Intake Frequency: Rarely Hx Substance Use: No Review of Systems See HPI for pertinent positives & negatives. and A total of 10 systems reviewed and were otherwise negative Physical Exam Vital Signs Vital Signs - 24 hr 04/04/19 14:10 04/04/19 14:17 04/04/19 15:03 Temperature 36.3 C L Temperature Source Oral Pulse Rate 76 76 Pulse Rate [Left] 76 Respiratory Rate 20 19 27 H Respiratory Effort / Characteristics Non-Labored Respiratory Depth Normal Blood Pressure 167/84 H 143/94 H Blood Pressure [Right Arm] 146/70 H Blood Pressure Mean 111 105 Blood Pressure Mean [Right Arm] 95 Pulse Oximetry 95 97 95 Oxygen Delivery Method Room Air Room Air Room Air Sepsis Recent Fever Within 48 Hours No Sepsis New/Unexplained Change in Mental Status No Sepsis Action Taken by Nursing No Action Required GENERAL: Patient is in no acute distress. HEENT: No acute trauma, normocephalic atraumatic, mucous membranes moist, no nasal congestion, no scleral icterus. Loss of wrinkles to the left forehead. NECK: No stridor, no adenopathy, no meningismus, trachea is midline. LUNGS: Clear to auscultation bilaterally, no wheeze, no rhonchi, breath sounds equal. HEART: Without murmurs gallops or rubs, regular rate and rhythm. ABDOMEN: Soft, nontender, bowel sounds positive, no hernias, no peritonitis. EXTREMITIES: No cyanosis or edema, full range of motion of all the joints wit hout pain or difficulty, no signs for acute trauma. NEUROLOGIC: Left facial droop. Slightly slurred speech. No cerebellar deficit. No extremity drift. Oriented x3. Equal hand grasp bilaterally. SKIN: No rash, no jaundice, no diaphoresis. Course Course 1414: The patient was evaluated in room A1. A complete history and physical exam was performed. 1434: I reevaluated the patient and updated him on his test results thus far. 1523: I discussed the patient's case with Dr. Prado- Neurology. She recommends a hospital work up and MRI. 1527: I discussed the patient's case with MAKENZIE Peña. She will evaluate the patient for further management under Dr. Norris's service. 1550: I reevaluated the patient and updated him on his test results. I discussed the treatment plan with him. He verbally agrees and understands. Anderson was at bedside. Administered Medications Discontinued Medications Ioversol (Optiray 320 125ml) 119 ml IV ONCE PRN PRN Reason: Interaction Checking Stop: 04/08/19 14:53 Last Admin: 04/04/19 14:57 Dose: 119 ml Documented by: [id number] Medical Decision Making Differential Diagnosis Differential diagnoses include stroke, bells palsy, TIA, intracranial bleeding, electrolyte imbalance, anemia, lyme disease, dysrhythmia. Medical Records Attestation: I reviewed the patient's medical records. Home Medications Current Medication List: was personally reviewed by me Laboratory Data Attestation: I reviewed the patient's lab results. Result diagrams: 04/04/19 14:25 04/04/19 14:25 Lab Results 04/04/19 04/04/19 04/04/19 Range/Units 14:25 14:25 14:25 WBC 6.80 (4.8-10.8) K/uL RBC 5.00 (4.7-6.1) M/uL Hgb 14.5 (14.0-18.0) g/dL Hct 43.3 (42-52) % MCV 86.6 (80-100) fL MCH 29.0 (25-34) pg MCHC 33.5 (32-36) g/dL RDW Std Deviation 43.4 (36.4-46.3) fL RDW Coeff of Earl 13.8 (11.5-14.5) % Plt Count 343 (130-400) K/uL MPV 9.3 (7.4-10.4) fL Immature Gran % (Auto) 0.3 % Neut % (Auto) 56.1 % Lymph % (Auto) 28.7 % Billings % (Auto) 9.4 % Eos % (Auto) 4.9 % Baso % (Auto) 0.6 % Immature Gran # (Auto) 0.02 (0.00-0.02) K/uL Neut # (Auto) 3.82 (1.4-6.5) K/uL Lymph # (Auto) 1.95 (1.2-3.4) K/uL Billings # (Auto) 0.64 H (0.11-0.59) K/uL Eos # (Auto) 0.33 (0-0.5) K/uL Baso # (Auto) 0.04 (0-0.2) K/uL PT 11.1 (9.0-12.0) Seconds INR 1.1 (0.9-1.1) APTT 27.3 (21.0-31.0) Seconds PTT Ratio 1.0 Sodium 139 (136-145) mmol/L Potassium 4.3 (3.5-5.1) mmol/L Chloride 107 (98-107) mmol/L Carbon Dioxide 29 (21-32) mmol/L Anion Gap 3.0 (3-11) BUN 15 (7-18) mg/dl Creatinine 1.00 (0.6-1.4) mg/dl Est Cr Clr Drug Dosing 69.6 ml/min Est GFR ( Amer) 83.2 Est GFR (Non-Af Amer) 71.8 BUN/Creatinine Ratio 15.2 (10-20) Glucose 132 H (70-99) mg/dl POC Glucose (70-99) mg/dl Calcium 9.3 (8.5-10.1) mg/dl Magnesium 2.0 (1.8-2.4) mg/dl Total Bilirubin 0.7 (0.2-1) mg/dl AST 16 (15-37) U/L ALT 26 (12-78) U/L Alkaline Phosphatase 87 (45-117) U/L Troponin I 0.015 (0-0.045) ng/ml Total Protein 7.7 (6.4-8.2) gm/dl Albumin 3.5 (3.4-5.0) gm/dl Globulin 4.2 H (2.5-4.0) gm/dl Albumin/Globulin Ratio 0.8 L (0.9-2) Urine Color Urine Appearance (Clear) Urine pH (4.5-7.5) Ur Specific [place] (1.000-1.030) Urine Protein (Negative) Urine Glucose (UA) (Negative) Urine Ketones (Negative) Urine Blood (Negative) Urine Nitrite (Negative) Urine Bilirubin (Negative) Urine Urobilinogen (Negative) Ur Leukocyte Esterase (Negative) Lyme Disease IgG Ab (Negative) Lyme Disease IgM Ab (Negative) 04/04/19 04/04/19 04/04/19 Range/Units 14:25 14:40 15:17 WBC (4.8-10.8) K/uL RBC (4.7-6.1) M/uL Hgb (14.0-18.0) g/dL Hct (42-52) % MCV (80-100) fL MCH (25-34) pg MCHC (32-36) g/dL RDW Std Deviation (36.4-46.3) fL RDW Coeff of Earl (11.5-14.5) % Plt Count (130-400) K/uL MPV (7.4-10.4) fL Immature Gran % (Auto) % Neut % (Auto) % Lymph % (Auto) % Bill[place] % (Auto) % Eos % (Auto) % Baso % (Auto) % Immature Gran # (Auto) (0.00-0.02) K/uL Neut # (Auto) (1.4-6.5) K/uL Lymph # (Auto) (1.2-3.4) K/uL Billings # (Auto) (0.11-0.59) K/uL Eos # (Auto) (0-0.5) K/uL Baso # (Auto) (0-0.2) K/uL PT (9.0-12.0) Seconds INR (0.9-1.1) APTT (21.0-31.0) Seconds PTT Ratio Sodium (136-145) mmol/L Potassium (3.5-5.1) mmol/L Chloride (98-107) mmol/L Carbon Dioxide (21-32) mmol/L Anion Gap (3-11) BUN (7-18) mg/dl Creatinine (0.6-1.4) mg/dl Est Cr Clr Drug Dosing ml/min Est GFR ( Amer) Est GFR (Non-Af Amer) BUN/Creatinine Ratio (10-20) Glucose (70-99) mg/dl POC Glucose 135 H (70-99) mg/dl Calcium (8.5-10.1) mg/dl Magnesium (1.8-2.4) mg/dl Total Bilirubin (0.2-1) mg/dl AST (15-37) U/L ALT (12-78) U/L Alkaline Phosphatase (45-117) U/L Troponin I (0-0.045) ng/ml Total Protein (6.4-8.2) gm/dl Albumin (3.4-5.0) gm/dl Globulin (2.5-4.0) gm/dl Albumin/Globulin Ratio (0.9-2) Urine Color Yellow Urine Appearance Clear (Clear) Urine pH 5.0 (4.5-7.5) Ur Specific [place] 1.025 (1.000-1.030) Urine Protein Negative (Negative) Urine Glucose (UA) Negative (Negative) Urine Ketones Negative (Negative) Urine Blood Negative (Negative) Urine Nitrite Negative (Negative) Urine Bilirubin Negative (Negative) Urine Urobilinogen Negative (Negative) Ur Leukocyte Esterase Negative (Negative) Lyme Disease IgG Ab Positive A (Negative) Lyme Disease IgM Ab Negative (Negative) Imaging Data Radiologist's Impression: Radiology results as stated below per my review and the radiologist's interpretation: XR chest 1V portable HISTORY: stroke symptoms COMPARISON: Chest 01/03/2019. FINDINGS: The heart remains enlarged. Interstitial and vascular thickening consistent with mild pulmonary edema. This has improved. Interval improvement in the left basilar densities suggesting atelectasis. No new focal lung consolidations. No pleural effusions. No pneumothorax. IMPRESSION: Cardiomegaly with mild interstitial pulmonary edema. ACT 112: Negative or not required by law. Electronically signed by: Edward Phoenix M.D. 04/04/2019 2:[address] OF THE HEAD WITHOUT CONTRAST CLINICAL HISTORY: Stroke evaluation COMPARISON STUDY: No previous studies for comparison. CT DOSE: 729.78 mGycm TECHNIQUE: Helical axial images of the head were obtained without IV contrast. Automated exposure control was utilized for the study. A dose lowering technique was utilized adhering to the principles of ALARA. FINDINGS: No acute intracranial hemorrhage, midline shift or mass effect is present. Brain volume is normal. Ventricular system is unremarkable. The basilar cisterns are patent. There are no extra-axial collections. 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 There are no CT findings to suggest acute dural sinus thrombosis or acute territorial infarct. There are no significant calvarial abnormalities. IMPRESSION: 1. No acute intracranial findings. 2. 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 ACT 112: Negative or not required by law. Electronically signed by: Dawood John M.D. 04/04/2019 3:03 PM CTA ANGIOGRAPHY OF THE HEAD CLINICAL HISTORY: Stroke. Right-sided weakness. COMPARISON STUDY: No previous studies for comparison. TECHNIQUE: Helical axial images of the head were obtained following uneventful intravenous administration of 119 cc of Optiray 320. Automated exposure control was utilized for the study. A dose lowering technique was utilized adhering to the principles of ALARA. CT DOSE: 1054.38 mGycm FINDINGS: No acute intracranial hemorrhage, midline shift or mass effect is present. Ventricular system is unremarkable. A hypodensity within the left parieto-occipital region is better depicted on the head CT. The bilateral M1, M2, A1 and A2 segments are patent. No intracranial aneurysm, thrombus or abrupt vessel cut off is noted. There is mild plaque within the bilateral cavernous carotids. Posterior circulation is intact. IMPRESSION: Unremarkable CTA of the head for age. ACT 112: Negative or not required by law. Electronically signed by: Dawood John M.D. 04/04/2019 3:[address] ANGIOGRAM OF THE NECK CLINICAL HISTORY: Strokelike symptoms. COMPARISON STUDY: No priors. TECHNIQUE: Following the IV administration of 119 of Optiray 320, CT angiogram of the neck was performed from the aortic arch to the skull base. Images are reviewed in the axial, sagittal, and coronal planes. 3-D MIPS images are created and assessed. IV contrast was administered without complication. All measuremen ts were calculated based on NASCET criteria. A dose lowering technique was utilized adhering to the principles of ALARA. FINDINGS: Thoracic aorta: There is mild atherosclerotic calcification of the thoracic aorta. Visualized portions of the thoracic aorta are normal in caliber. The aortic arch demonstrates standard 3-vessel anatomy. Right carotid arterial system: The right common carotid artery is widely patent, as are the left internal and external carotid arteries. Plaque is noted in the c arotid bulb. Left carotid arterial system: The left common carotid artery is widely patent, as are the left internal and external carotid arteries. Plaque is noted in the carotid bulb. Vertebral arteries: The vertebral arteries are widely patent and codominant. Subclavian arteries: Widely patent bilaterally. Intracranial vasculature: The visualized intracranial vessels at the skull base are patent. Jugular veins: Widely patent bilaterally. Brain parenchyma: The visualized brain parenchyma the skull base is within normal limits. Lung apices: Partially visualized upper lobe lung parenchyma appears clear. Soft tissues: The visualized pharyngeal soft tissues are normal in appearance noting angiographic phase technique. The oropharyngeal airway appears widely patent. The salivary and thyroid glands are normal in appearance. No cervical lymphadenopathy is seen. Skeletal structures: The skeletal structures are osteopenic. The visualized calvarium at the skull base appears intact. The imaged cervical spine is maintained noting multilevel spondylosis. No lytic or blastic lesion is seen. IMPRESSION: Unremarkable CT angiogram of the neck. ACT 112: Negative or not required by law. Electronically signed by: Raudel Jackson M.D. 04/04/2019 3:27 PM ECG Data Attestation: I personally reviewed and interpreted this ECG as follows: Indication: + other (stroke symptoms) Rate (beats per minute): 74 Rhythm: + sinus rhythm ECG Intervals/blocks: + First degree AV block and + Left bundle branch block ECG ST segments: no ST elevation ECG Findings: no PVCs Comparison ECG Date: from (01/05/2019) Change: no significant change Blood Pressure Blood Pressure Findings: Elevated blood pressure Blood Pressure Disposition: further management by hospitalist MDM Narrative There is no leukocytosis or concerning anemia. No coagulopathy. No significant electrolyte abnormality or kidney failure. No worrisome liver enzyme elevation. Urinalysis did not show evidence for infection. Lyme disease was positive for IgG, negative for IgM. EKG shows a sinus rhythm, no acute ischemia. Cardiac enzyme testing x1 is not consistent with acute cardiac injury. Chest film shows some potential mild fluid overload, no pneumonia. Brain CTA does not show acute bleed or arterial occlusion. There was an older potential stroke seen. CTA of the neck did not show any evidence for arterial occlusion. On my exam, there was some slight left facial droop and some subtle loss of the wrinkling of his left forehead. Some occasional speech slur was noted. No extremity weakness, cerebellar deficits or drift. The patient was not a candidate for TPA as he was far out of the TPA window. At this point, certainly, stroke is a consideration, a partial Osborne's palsy was also a consideration. I did speak with on-call neurology. I spoke with the patient and case management. The on-call hospitalist has been consulted. Further stroke work-up is warranted. Continuous Cardiac Monitoring: An order was placed for continuous cardiac monitoring. The monitor shows a rate of 76 with sinus rhythm and first-degree AV block. Impression & Plan Stroke-like symptoms, Facial droop, Slurred speech Discharge Plan Visit Data Chief Complaint: Stroke/CVA Symptoms Stated Complaint: STROKE LIKE SYMPTOMS ED Provider: Raudel Domingo Discharge Problem: Stroke-like symptoms, Facial droop, Slurred speech Patient Disposition: Being Evaluated by Hospitalist The ashlynibmarck's documentation has been prepared under my direction and personally reviewed by me in its entirety. I confirm that the note above accurately reflects all work, treatment, procedures, and medical decision making performed by me.
[2019-04-04] MEDS ORDERED: ZOLPIDEM TARTRATE 5 MG TAB PO PRN (18:56)
[2019-04-04] MEDS ORDERED: predniSONE 20 MG TAB PO SCH (19:00)
[2019-04-04] MEDS ORDERED: LORazepam 0.5 MG/1 ML VIAL IV SCH (19:00)
[2019-04-04] MEDS ORDERED: GLUCOSE 10 TABS/TUBE PO PRN (19:03)
[2019-04-04] MEDS ORDERED: GLUCOSE 40% GEL 15 GM TUBE PO PRN (19:03)
[2019-04-04] MEDS ORDERED: DEXTROSE 50% 50 ML SYRINGE IV PRN (19:03)
[2019-04-04] MEDS ORDERED: CARBOHYDRATES FOR HYPOGLYCEMIA PO PRN (19:03)
[2019-04-04] MEDS ORDERED: GLUCAGON FOR INJ 1 MG VIAL SQ PRN (19:03)
[2019-04-04] MEDS: CLOPIDOGREL BISULFATE 75 MG TAB PO SCH (19:22)
[2019-04-04] MEDS: OMEGA-3 (PURIFIED FISH OIL) 1 GM CAP PO SCH (19:23)
[2019-04-04] MEDS ORDERED: methylPREDNISolone 40 MG in SYRINGE 0 ML IV ONE (20:00)
[2019-04-04] MEDS ORDERED: GADOBUTROL 65ML VIAL IV PRN (20:59)
[2019-04-04] MEDS ORDERED: INSULIN ASPART 100 UNITS/ML 3 ML PEN SC SCH (21:00)
[2019-04-04] MEDS: ENOXAPARIN INJ 40 MG/0.4 ML SYR SQ SCH (21:16)
--- NOTE | 2019-04-04 21:27 | Magnetic Resonance Report ---
MR brain wo/w con HISTORY: 78 years-old Male stroke eval, special attn to CN7 acute strokelike symptoms COMPARISON: CT head, CTA head and neck of same day TECHNIQUE: Multiplanar multisequence MRI of the brain was obtained both with and without the use of 9 .2 mL Gadavist FINDINGS: Filling Machine Operator localizer images demonstrate no gross extracranial abnormality. Motion degraded exam. There are a few punctate foci (4 total) of restricted diffusion involving the right frontal lobe, image 16 ser ies 4 suggestive of tiny acute or subacute lacunar infarcts. No territorial infarction identified. Mi dline structures including the corpus callosum, brainstem, optic chiasm, pituitary and pineal glands appear unremarkable on the sagittal T1 series. No cerebellar tonsillar herniation. Degenerative connelly es are noted about the imaged cervical spine. No acute intracranial hemorrhage, midline shift, abnormal extra axial collection, hydrocephalus or in tracranial mass. 8 mm T2 hyperintense focus in the region of the anterior commissure/inferior left le ntiform nucleus suggests prominent perivascular space versus less likely remote infarct. Mild age-rel ated involutional changes. Encephalomalacia and gliosis related to remote left parieto-occipital infa rct. No significant T2/flair signal abnormalities of the brain parenchyma. Flow voids at the level th e skull base appear patent. Mastoid air cells are clear. Paranasal sinuses are generally clear. Prior bilateral lens replacement. No abnormal enhancement. IMPRESSION: 1. Motion degraded exam. 2. There are a few punctate foci of restricted diffusion within the right frontal lobe suggestive of tiny acute or subacute lacunar infarcts. 3. Age-related involutional changes with remote infarct of the left parieto-occipital distribution. 4. No abnormal enhancement. ACT 112: Negative or not required by law. The above report was generated using voice recognition software. It may contain grammatical, syntax o r spelling errors. Electronically signed by: Sherif Salazar M.D. 04/04/2019 9:26 PM
[2019-04-05] MEDS: INSULIN ASPART 100 UNITS/ML 3 ML PEN SC SCH ×5 (00:03→20:33)
[2019-04-05 06:45] LABS: Estimated Average Glucose 160 mg/dl; Hemoglobin A1C 7.2 % (4.5-5.6)
[2019-04-05 07:00] LABS: Hematocrit (blood only) 42.8 % (42-52); Hemoglobin 14.5 g/dL (14.0-18.0); Mean Corpuscular Hemoglobin 29.4 pg (25-34); Mean Corpuscular Hgb Conc 33.9 g/dL (32-36); Mean Corpuscular Volume 86.6 fL (80-100); Mean Platelet Volume 9.7 fL (7.4-10.4); Platelet Count 335 K/uL (130-400); RDW Coefficient of Variation 13.8 % (11.5-14.5); RDW Standard Deviation 43.4 fL (36.4-46.3); Red Blood Count 4.94 M/uL (4.7-6.1); White Blood Count 6.47 K/uL (4.8-10.8)
[2019-04-05 07:34] LABS: BUN Creatinine Ratio 17.1 (10-20); Calcium 9.4 mg/dl (8.5-10.1); Creatinine Clr Calc Pharmacy 67.5 ml/min; Est GFR (African American) 82.2; Est GFR (Non-African American) 70.9; Potassium 4.9 mmol/L (3.5-5.1)
[2019-04-05] MEDS ORDERED: PERFLUTREN LIPID MICROSPHERE (DEFINITY) IV ONE (08:28)
[2019-04-05] MEDS ORDERED: lisinopriL 5 MG TAB PO SCH (09:00)
[2019-04-05] MEDS ORDERED: METOPROLOL SUCC 50MG EXT REL TAB PO SCH (09:00)
[2019-04-05] MEDS ORDERED: ATORVASTATIN 40 MG TAB PO SCH (09:00)
[2019-04-05] MEDS ORDERED: Nursing to Pharmacy Communication ONE (10:45)
[2019-04-05] MEDS: ASPIRIN 81 MG ECTAB PO SCH (10:51)
[2019-04-05] MEDS: OMEGA-3 (PURIFIED FISH OIL) 1 GM CAP PO SCH ×2 (10:51→20:33)
[2019-04-05] MEDS: ATORVASTATIN 40 MG TAB PO SCH (10:51)
[2019-04-05] MEDS: CLOPIDOGREL BISULFATE 75 MG TAB PO SCH (10:52)
[2019-04-05] MEDS: predniSONE 20 MG TAB PO SCH ×2 (10:52→17:00)
--- NOTE | 2019-04-05 12:09 | Consultation Report ---
DATE OF CONSULTATION: 04/05/2019 REASON FOR CONSULTATION: Stroke. HISTORY OF PRESENT ILLNESS: The patient is a 78-year-old right-handed male with a history of cardiomyopathy, coronary artery disease, hypertension, diet-controlled diabetes. The patient noted upon awakening that he had dysarthria, possible word finding difficulty, left facial droop and some tingling above the right upper lip. There may have been some difficult to describe change in vision. There may have been some subsequent headache in the frontal region. There was no vertigo. No difficulty with swallowing. No unilateral weakness or numbness. Symptoms are improved today. The patient has no prior history of transient ischemic attack or stroke. The patient does have a history of ischemic cardiomyopathy in 05/2017 with a severely dilated LV with EF less than 20%, large wall motion abnormality involving the septum, inferior and posterior palmer and apex with severe hypokinesis to akinesis. The patient had pneumonia in January. About 10 days ago, was thought to have had the flu and in the last 4 days has been coughing. One year ago or so, the patient had a rash on his right shoulder, which was treated with oral antibiotics versus antifungal. The patient tested positive for Lyme preliminary on this admission. The patient has not had any head or neck injury, chiropractic manipulation of the neck, medical or dental procedures. He had lost a modest amount of weight with the flu and with pneumonia. LABORATORY DATA: Notable for normal white count, H and H, and platelet count. PT 11.1, PTT 27.3. Chemistry profile notable for a nonfasting blood sugar of 132 and a hemoglobin A1c of 7.2. His LDL is 101. The patient's EKG shows a sinus rhythm with a first degree AV block, left axis deviation, nonspecific intraventricular conduction delay. MRI of the brain, which I have reviewed, shows a few punctate foci of restricted diffusion in the right frontal lobe suggestive of tiny acute or subacute lacunar infarctions, age-related involutional changes with a remote infarct in the left parietooccipital region. CTA of the neck is unremarkable. CTA of the head is unremarkable. Echo is pending. PAST MEDICAL HISTORY: Notable for coronary artery disease, ischemic cardiomyopathy, hypertension, hyperlipidemia, diabetes. He has a history of basal cell carcinoma. He has had appendectomy, cataract surgery, and Mohs surgery. FAMILY HISTORY: Sister with multiple myeloma. Siblings and parents with coronary artery disease and cerebrovascular disease. SOCIAL HISTORY: Remote smoker, nondrinker. ALLERGIES: PENICILLIN. MEDICATIONS PRIOR TO ADMISSION: Aspirin, atorvastatin, fish oil, lisinopril, metoprolol, Plavix was added to his regimen. PHYSICAL EXAMINATION: VITAL SIGNS: 136/58, 69, 19, 36.4, 93%. GENERAL: The patient is awake, alert, oriented x3, no right/left confusion. Naming repetitions and 3-step commands are normal. NECK: There are no carotid bruits. HEART: No heart murmurs. Heart is regular rate and rhythm. Well-healed midline frontal scarring is noted from prior Mohs surgery. ABDOMEN: Soft and nontender. EXTREMITIES: Feet are warm and dry. No hair growth is noted on the feet. No embolic phenomenon are noted in the fingernails. NEUROLOGIC: Pupils are equal. Optic nerves are unremarkable. There is normal diallo and motility. There is no visual extinction. There is normal facial sensation. There is a flattening of the left nasolabial fold. Tongue is midline. Speech is nondysarthric. Motor 5/5, no drift, but mildly decreased left rapid alternating movements. Symmetric reflexes. Downgoing toes. [id number] is mildly tremulous. Sensation is intact to light touch bilaterally, temperature and vibration sense. Gait and tandem are normal. IMPRESSION: Right frontal cortical infarction. The location would be very typical for an embolic infarction. PLAN: Echocardiography, telemetric monitoring. I have consulted cardiology for consideration of empiric anticoagulation given his low ejection fraction. If this option is chosen, we would continue aspirin, but discontinue the Plavix, which was started on this admission. The patient's LDL is above goal and should be 70 or less, and his hemoglobin A1c or diabetes needs to be optimized. We will follow with you.
--- NOTE | 2019-04-05 12:33 | Cardiology Consultation ---
Date of Consultation April 05, 2019 Assessment & Plan (1) Stroke-like symptoms: (2) Ischemic cardiomyopathy: (3) CAD (coronary artery disease): (4) DM type 2 (diabetes mellitus, type 2): (5) Systolic CHF: This patient has had a small possible embolic stroke. With his previous large anterior wall MN and chronic systolic heart failure he is at risk for embolic events however, he is done remarkably well for 25 years with no treatment. I would recommend at this time that she continue with the Plavix and aspirin only. He should have an outpatient event monitor to evaluate him for paroxysmal atrial fibrillation. If he does have evidence of paroxysmal atrial fibrillation then I would recommend placing him on a NOAC, preferably Eliquis, and Plavix. Discontinuing the aspirin. So far he has been in sinus rhythm on the telemetry. History of Present Illness Attending Physician: Nette Benjamin, History of Present Illness This is a 78-year-old male patient who had a large anterior wall myocardial infarction over 20 years ago. I last saw him in the clinic about a year ago. He has been a minimalist in regard to his cardiac care. In the past he has refused an ICD. He actually has done remarkably well with his history of chronic systolic heart failure and previous large anterior wall myocardial infarction. Yesterday he presented with left-sided weakness and word forming problems. He was found to have a a small occipital parietal lobe infarct. Most of his deficits have resolved. He has now been started on aspirin and Plavix. Thus far the telemetry he has not had any atrial arrhythmias. He has no cardiac complaints today. Past medical history: 1. Ischemic cardiomyopathy 2. Chronic systolic heart failure with an estimated left ventricular ejection fraction 20-25% 3. Old anterior wall myocardial infarction 4. [place] heart Association Class 1 to 2 5. Diabetes mellitus 6. History of squamous cell carcinoma of the skin Allergies Allergy/AdvReac Type Severity Reaction Status Date / Time Penicillins Allergy Intermediate TONGUE Verified 04/04/19 14:50 SWELLING Home Medications Home Medications Medication Instructions Recorded Confirmed Type atorvastatin 80 mg tablet 80 mg PO DAILY tab 11/26/18 04/04/19 History lisinopril 5 mg tablet 5 mg PO DAILY tab 11/26/18 04/04/19 History Fish Oil 1 cap PO BID 01/03/19 04/04/19 History aspirin 81 mg PO DAILY 01/03/19 04/04/19 History metoprolol succinate 50 mg PO DAILY 01/03/19 04/04/19 History Patient History Medical History CAD (coronary artery disease) (Chronic) 1994-anterior wall MN, no intervention DM type 2 (diabetes mellitus, type 2) (Chronic) Dyslipidemia (Chronic) HTN (hypertension) (Chronic) Ischemic cardiomyopathy (Chronic) Systolic CHF (Chronic) Surgical History History of appendectomy (Chronic) History of cataract surgery (Chronic) Family History Sister Multiple myeloma Brother Heart disease Social History Preferred Language: Arabic Communication Ability: Effective Fiberglass Grinder Required: No Beliefs That Will Affect Care: None marital status: Current Living Situation: Spouse Other Information That Helps Us Care for You: No Feels Safe at Home: Yes Safety Concerns: Feels Safe At This Time Smoking Status: Former smoker Do You Dip or Chew Tobacco: No ; Second Hand Exposure: No ; Tobacco Cessation Education Requested by Patient: No Hx Alcohol Use: Yes Alcohol type: wine Alcohol Intake Frequency: Rarely Hx Substance Use: No Review of Systems Review of Systems: All systems reviewed & are unremarkable except as noted in HPI & below Nothing additional to add Physical Exam Physical Exam: General: no acute distress and stated age Head: normocephalic, no masses, lesions, tenderness or abnormalities Eyes: conjunctiva are pink and non-injected, sclera clear Neck: supple, no adenopathy, no bruits, normal jugular venous pulse, no hepatojugular reflux Chest: normal shape and normal respiratory effort Lungs: clear to auscultation and percussion Cardiac Exam: - regular rate & rhythm, no murmurs gallops or rubs - normal S1, normal S2 Pulses: 2(+) throughout Abdomen: abdomen soft, non-tender, no abnormal masses and no hepatosplenomegaly Musculoskeletal: no gait disturbance, no joint inflammation, no deforming arthritis Extremities: no edema and no cyanosis Neuro: grossly normal exam Results & Data Vital Signs (Past 12 Hours) Vital Signs Temp Pulse Pulse Resp BP Pulse Ox 04/05/19 10:57 36.6 C 86 17 145/73 H 97 04/05/19 06:29 36.4 C L 69 19 136/58 L 93 04/05/19 04:00 36.6 C 67 20 115/62 93 04/05/19 01:22 64 Laboratory Results Laboratory Results - last 24 hr 04/04/19 04/04/19 04/04/19 14:25 14:25 14:25 WBC 6.80 RBC 5.00 Hgb 14.5 Hct 43.3 MCV 86.6 MCH 29.0 MCHC 33.5 RDW Std Deviation 43.4 RDW Coeff of Earl 13.8 Plt Count 343 MPV 9.3 Immature Gran % (Auto) 0.3 Neut % (Auto) 56.1 Lymph % (Auto) 28.7 [place] % (Auto) 9.4 Eos % (Auto) 4.9 Baso % (Auto) 0.6 Immature Gran # (Auto) 0.02 Neut # (Auto) 3.82 Lymph # (Auto) 1.95 [place] # (Auto) 0.64 H Eos # (Auto) 0.33 Baso # (Auto) 0.04 PT 11.1 INR 1.1 APTT 27.3 PTT Ratio 1.0 Sodium 139 Potassium 4.3 Chloride 107 Carbon Dioxide 29 Anion Gap 3.0 BUN 15 Creatinine 1.00 Est Cr Clr Drug Dosing 69.6 Est GFR ( Amer) 83.2 Est GFR (Non-Af Amer) 71.8 BUN/Creatinine Ratio 15.2 Glucose 132 H POC Glucose Estimat Average Glucose Hemoglobin A1c Calcium 9.3 Magnesium 2.0 Total Bilirubin 0.7 AST 16 ALT 26 Alkaline Phosphatase 87 Troponin I 0.015 Total Protein 7.7 Albumin 3.5 Globulin 4.2 H Albumin/Globulin Ratio 0.8 L Triglycerides Cholesterol LDL Cholesterol, Calc VLDL Cholesterol, Calc HDL Cholesterol Cholesterol/HDL Ratio Urine Color Urine Appearance Urine pH Ur Specific [place] Urine Protein Urine Glucose (UA) Urine Ketones Urine Blood Urine Nitrite Urine Bilirubin Urine Urobilinogen Ur Leukocyte Esterase Lyme Disease IgG Ab Lyme IgG (Western Blot) Lyme IgG 18 kDa Band Lyme IgG 23 kDa Band Lyme IgG 28 kDa Band Lyme IgG 30 kDa Band Lyme IgG 39 kDa Band Lyme IgG 41 kDa Band Lyme IgG 45 kDa Band Lyme IgG 58 kDa Band Lyme IgG 66 kDa Band Lyme IgG 93 kDa Band Lyme Disease IgM Ab Lyme IgM (Western Blot) Lyme IgM 23 kDa Band Lyme IgM 39 kDa Band Lyme IgM 41 kDa Band 04/04/19 04/04/19 04/04/19 14:25 14:25 14:25 WBC RBC Hgb Hct MCV MCH MCHC RDW Std Deviation RDW Coeff of Earl Plt Count MPV Immature Gran % (Auto) Neut % (Auto) Lymph % (Auto) [place] % (Auto) Eos % (Auto) Baso % (Auto) Immature Gran # (Auto) Neut # (Auto) Lymph # (Auto) [place] # (Auto) Eos # (Auto) Baso # (Auto) PT INR APTT PTT Ratio Sodium Potassium Chloride Carbon Dioxide Anion Gap BUN Creatinine Est Cr Clr Drug Dosing Est GFR ( Amer) Est GFR (Non-Af Amer) BUN/Creatinine Ratio Glucose POC Glucose Estimat Average Glucose 160 Hemoglobin A1c 7.2 H Calcium Magnesium Total Bilirubin AST ALT Alkaline Phosphatase Troponin I Total Protein Albumin Globulin Albumin/Globulin Ratio Triglycerides Cholesterol LDL Cholesterol, Calc VLDL Cholesterol, Calc HDL Cholesterol Cholesterol/HDL Ratio Urine Color Urine Appearance Urine pH Ur Specific [place] Urine Protein Urine Glucose (UA) Urine Ketones Urine Blood Urine Nitrite Urine Bilirubin Urine Urobilinogen Ur Leukocyte Esterase Lyme Disease IgG Ab Positive A Lyme IgG (Western Blot) Pending Lyme IgG 18 kDa Band Pending Lyme IgG 23 kDa Band Pending Lyme IgG 28 kDa Band Pending Lyme IgG 30 kDa Band Pending Lyme IgG 39 kDa Band Pending Lyme IgG 41 kDa Band Pending Lyme IgG 45 kDa Band Pending Lyme IgG 58 kDa Band Pending Lyme IgG 66 kDa Band Pending Lyme IgG 93 kDa Band Pending Lyme Disease IgM Ab Negative Lyme IgM (Western Blot) Pending Lyme IgM 23 kDa Band Pending Lyme IgM 39 kDa Band Pending Lyme IgM 41 kDa Band Pending 04/04/19 04/04/19 04/05/19 14:40 15:17 00:01 WBC RBC Hgb Hct MCV MCH MCHC RDW Std Deviation RDW Coeff of Earl Plt Count MPV Immature Gran % (Auto) Neut % (Auto) Lymph % (Auto) [place] % (Auto) Eos % (Auto) Baso % (Auto) Immature Gran # (Auto) Neut # (Auto) Lymph # (Auto) [place] # (Auto) Eos # (Auto) Baso # (Auto) PT INR APTT PTT Ratio Sodium Potassium Chloride Carbon Dioxide Anion Gap BUN Creatinine Est Cr Clr Drug Dosing Est GFR ( Amer) Est GFR (Non-Af Amer) BUN/Creatinine Ratio Glucose POC Glucose 135 H 142 H Estimat Average Glucose Hemoglobin A1c Calcium Magnesium Total Bilirubin AST ALT Alkaline Phosphatase Troponin I Total Protein Albumin Globulin Albumin/Globulin Ratio Triglycerides Cholesterol LDL Cholesterol, Calc VLDL Cholesterol, Calc HDL Cholesterol Cholesterol/HDL Ratio Urine Color Yellow Urine Appearance Clear Urine pH 5.0 Ur Specific [place] 1.025 Urine Protein Negative Urine Glucose (UA) Negative Urine Ketones Negative Urine Blood Negative Urine Nitrite Negative Urine Bilirubin Negative Urine Urobilinogen Negative Ur Leukocyte Esterase Negative Lyme Disease IgG Ab Lyme IgG (Western Blot) Lyme IgG 18 kDa Band Lyme IgG 23 kDa Band Lyme IgG 28 kDa Band Lyme IgG 30 kDa Band Lyme IgG 39 kDa Band Lyme IgG 41 kDa Band Lyme IgG 45 kDa Band Lyme IgG 58 kDa Band Lyme IgG 66 kDa Band Lyme IgG 93 kDa Band Lyme Disease IgM Ab Lyme IgM (Western Blot) Lyme IgM 23 kDa Band Lyme IgM 39 kDa Band Lyme IgM 41 kDa Band 04/05/19 04/05/19 04/05/19 05:53 06:06 06:06 WBC 6.47 RBC 4.94 Hgb 14.5 Hct 42.8 MCV 86.6 MCH 29.4 MCHC 33.9 RDW Std Deviation 43.4 RDW Coeff of Earl 13.8 Plt Count 335 MPV 9.7 Immature Gran % (Auto) Neut % (Auto) Lymph % (Auto) [place] % (Auto) Eos % (Auto) Baso % (Auto) Immature Gran # (Auto) Neut # (Auto) Lymph # (Auto) [place] # (Auto) Eos # (Auto) Baso # (Auto) PT INR APTT PTT Ratio Sodium 140 Potassium 4.9 Chloride 106 Carbon Dioxide 29 Anion Gap 4.0 BUN 17 Creatinine 1.01 Est Cr Clr Drug Dosing 67.5 Est GFR ( Amer) 82.2 Est GFR (Non-Af Amer) 70.9 BUN/Creatinine Ratio 17.1 Glucose 193 H POC Glucose 172 H Estimat Average Glucose Hemoglobin A1c Calcium 9.4 Magnesium Total Bilirubin AST ALT Alkaline Phosphatase Troponin I Total Protein Albumin Globulin Albumin/Globulin Ratio Triglycerides 62 Cholesterol 150 LDL Cholesterol, Calc 101 VLDL Cholesterol, Calc 12 HDL Cholesterol 37 Cholesterol/HDL Ratio 4 Urine Color Urine Appearance Urine pH Ur Specific [place] Urine Protein Urine Glucose (UA) Urine Ketones Urine Blood Urine Nitrite Urine Bilirubin Urine Urobilinogen Ur Leukocyte Esterase Lyme Disease IgG Ab Lyme IgG (Western Blot) Lyme IgG 18 kDa Band Lyme IgG 23 kDa Band Lyme IgG 28 kDa Band Lyme IgG 30 kDa Band Lyme IgG 39 kDa Band Lyme IgG 41 kDa Band Lyme IgG 45 kDa Band Lyme IgG 58 kDa Band Lyme IgG 66 kDa Band Lyme IgG 93 kDa Band Lyme Disease IgM Ab Lyme IgM (Western Blot) Lyme IgM 23 kDa Band Lyme IgM 39 kDa Band Lyme IgM 41 kDa Band 04/05/19 11:31 WBC RBC Hgb Hct MCV MCH MCHC RDW Std Deviation RDW Coeff of Earl Plt Count MPV Immature Gran % (Auto) Neut % (Auto) Lymph % (Auto) [place] % (Auto) Eos % (Auto) Baso % (Auto) Immature Gran # (Auto) Neut # (Auto) Lymph # (Auto) [place] # (Auto) Eos # (Auto) Baso # (Auto) PT INR APTT PTT Ratio Sodium Potassium Chloride Carbon Dioxide Anion Gap BUN Creatinine Est Cr Clr Drug Dosing Est GFR ( Amer) Est GFR (Non-Af Amer) BUN/Creatinine Ratio Glucose POC Glucose 193 H Estimat Average Glucose Hemoglobin A1c Calcium Magnesium Total Bilirubin AST ALT Alkaline Phosphatase Troponin I Total Protein Albumin Globulin Albumin/Globulin Ratio Triglycerides Cholesterol LDL Cholesterol, Calc VLDL Cholesterol, Calc HDL Cholesterol Cholesterol/HDL Ratio Urine Color Urine Appearance Urine pH Ur Specific [place] Urine Protein Urine Glucose (UA) Urine Ketones Urine Blood Urine Nitrite Urine Bilirubin Urine Urobilinogen Ur Leukocyte Esterase Lyme Disease IgG Ab Lyme IgG (Western Blot) Lyme IgG 18 kDa Band Lyme IgG 23 kDa Band Lyme IgG 28 kDa Band Lyme IgG 30 kDa Band Lyme IgG 39 kDa Band Lyme IgG 41 kDa Band Lyme IgG 45 kDa Band Lyme IgG 58 kDa Band Lyme IgG 66 kDa Band Lyme IgG 93 kDa Band Lyme Disease IgM Ab Lyme IgM (Western Blot) Lyme IgM 23 kDa Band Lyme IgM 39 kDa Band Lyme IgM 41 kDa Band Medications Administered Current Inpatient Medications Acetaminophen (Tylenol) 650 mg PO Q4H PRN PRN Reason: Pain or Fever Stop: 05/04/19 18:04 Aspirin (Ecotrin Ectab) 81 mg PO DAILY [facility] Stop: 05/05/19 08:59 Last Admin: 04/05/19 10:51 Dose: 81 mg Documented by: Atorvastatin Calcium (Lipitor) 80 mg PO DAILY [facility] Stop: 05/05/19 08:59 Last Admin: 04/05/19 10:51 Dose: 80 mg Documented by: Clopidogrel [facility] ([facility]avix) [facility]: 05/04/19 18:29 Last Admin: 04/05/19 10:52 Dose: 75 mg Documented by: Dextrose (Dextrose 50%) 25 - 50 ml IV UD PRN; Protocol PRN Reason: Hypoglycemia Protocol Stop: 05/04/19 19:02 Enoxaparin Sodium (Lovenox) 40 mg SQ Q24H [facility] Stop: 05/04/19 18:59 Last Admin: 04/04/19 21:16 Dose: 40 mg Documented by: Fish Oil ([place]-3 (Purified Fish Oil)) 1 gm PO BID [facility] Stop: 05/04/19 20:59 Last Admin: 04/05/19 10:51 Dose: 1 gm Documented by: Gadobutrol (Gadavist 65ml) 9.2 ml IV ONCE PRN PRN Reason: Interaction Checking Stop: 04/08/19 20:58 Last Admin: 04/04/19 21:00 Dose: 9.2 ml Documented by: Glucagon (Glucagen) 1 mg SQ UD PRN; Protocol PRN Reason: Hypoglycemia Protocol Stop: 05/04/19 19:02 Glucose (Glucose 40%) 15 - 30 gm PO UD PRN; Protocol PRN Reason: Hypoglycemia Protocol Stop: 05/04/19 19:02 Glucose (Dex4 Glucose) 4 - 8 tabs PO UD PRN; Protocol PRN Reason: Hypoglycemia Protocol Stop: 05/04/19 19:02 Insulin Aspart (Novolog Flexpen) 0 units SC ACHS [facility] Stop: 05/05/19 11:29 Last Admin: 04/05/19 12:29 Dose: 5 units Documented by: Lisinopril (Zestril) 5 mg PO DAILY [facility] Stop: 05/05/19 08:59 Metoprolol Succinate (Toprol Xl) 50 mg PO DAILY [facility] Stop: 05/05/19 08:59 Miscellaneous (Carbohydrates For Hypoglycemia) 15 - 30 gm PO UD PRN PRN Reason: Hypoglycemia Protocol Stop: 05/04/19 19:02 Miscellaneous Information (Pharmacist Discharge Med Rec Consult) 1 ea N/A UD PRN PRN Reason: Consult Stop: 05/04/19 18:04 Polyethylene Glycol (Miralax Powder Packet) 17 gm PO DAILY PRN PRN Reason: Constipation Stop: 05/04/19 18:04 Prednisone (Prednisone) 60 mg PO DAILY [facility] Stop: 05/05/19 08:59 Last Admin: 04/05/19 10:52 Dose: 60 mg Documented by: Zolpidem Tartrate (Ambien) 5 mg PO HS PRN PRN Reason: Sleep Stop: 05/04/19 18:55
--- NOTE | 2019-04-05 16:45 | Hospitalist Progress Note ---
Date of Service April 05, 2019 Assessment & Plan (1) Acute ischemic stroke: Acute frontal stroke with resolution of symptoms and no apparent residual deficit. Will cont to monitor on telemetry for now. Cont Lipitor 80mg daily, ASA and Plavix which is new for him. Appreciate Cardiology recommendations against additional blood thinners at this time. Permissive HTN for 48 hours. Cont holding lisinopril and Toprol for now. (2) DM type 2 (diabetes mellitus, type 2): Inpatient numbers controlled on basal bolus insulin. Cont carb coverage and correction factor at current rate. (3) CAD (coronary artery disease): h/o Anterior wall [place] in - no intervention. No current chest pain. Continue aspirin, statin, toprol (4) HTN (hypertension): Allow for permissive HTN- cont holding metoprolol and lisinopril (5) Ischemic cardiomyopathy: Longstanding ischemic cardiomyopathy. Chronic and no volume overload on examination. Denies symptoms. Cont low sodium diet. (6) DVT prophylaxis: DVT Ppx: SQ lovenox Code status: DNR per discussion with patient PCP: Brittney Dispo: Admitted to PCU. To home in am. Nette Benjamin DO [facility] Hospitalist Subjective 78 yo M with expressive aphasia and facial droop yesterday presented to the ER. Found to have had an acute frontal stroke. Symptoms are completely resolved today and he has no residual deficits. He is eating and ambulating well today. He is articulating the story very accurately and clearly. He has a long- standing cardiomyopathy so Cardiology was consulted to consider possible source of stroke. Telemetry review revealed sinus rhythm overnight without events/arrhythmias. Review of Systems Review of Systems: All systems reviewed & are unremarkable except as noted in Subjective Physical Exam Physical Exam: CONSTITUTIONAL: WNWD, vitals as above, generally well- appearing EYES: EOMI bilaterally, PERRL, normal conjunctivae, no scleral icterus ENT: MMM, partial dentures in place. RESPIRATORY: clear to auscultation bilaterally, no crackles, rales or wheezes, normal respiratory effort CARDIOVASCULAR: regular rate and rhythm, S1 and 2 heard without murmurs, gallops or rubs, no JVD, no peripheral edema GASTROINTESTINAL: soft, nontender, nondistended MUSCULOSKELETAL: strength 5/5 throughout, head is normocephalic and atraumatic SKIN: warm and dry NEUROLOGIC: patellar DTRs 2+ bilat. PERRL, EOMI, no facial palsy, no dysarthria. CN 2-12 grossly intact, no sensory deficit, normal cognition, normal speech, no tremor. Ambulatory PSYCHIATRIC: alert cooperative and oriented to person, place and time. Results & Data ([facility]) Vital Signs (Past 12 Hours) Vital Signs Temp Pulse Pulse Resp BP Pulse Ox 04/05/19 15:55 36.3 C L 81 18 114/70 97 04/05/19 13:01 68 04/05/19 10:57 36.6 C 86 17 145/73 H 97 04/05/19 06:29 36.4 C L 69 19 136/58 L 93 Laboratory Results Short CBC 04/05/19 Range/Units 06:06 WBC 6.47 (4.8-10.8) K/uL Hgb 14.5 (14.0-18.0) g/dL Hct 42.8 (42-52) % Plt Count 335 (130-400) K/uL BMP 04/05/19 06:06 Sodium 140 Potassium 4.9 Chloride 106 Carbon Dioxide 29 BUN 17 Creatinine 1.01 Glucose 193 H Calcium 9.4 Diagnostic Findings MR brain wo/w con FINDINGS: Meat Cutting Teacher localizer images demonstrate no gross extracranial abnormality. Motion degraded exam. There are a few punctate foci (4 total) of restricted diffusion involving the right frontal lobe, image 16 series 4 suggestive of tiny acute or subacute lacunar infarcts. No territorial infarction identified. Midline structures including the corpus callosum, brainstem, optic chiasm, pituitary and pineal glands appear unremarkable on the sagittal T1 series. No cerebellar t onsillar herniation. Degenerative changes are noted about the imaged cervical spine. No acute intracranial hemorrhage, midline shift, abnormal extra axial collection, hydrocephalus or intracranial mass. 8 mm T2 hyperintense focus in the region of the anterior commissure/inferior left lentiform nucleus suggests prominent perivascular space versus less likely remote infarct. Mild age-related involutional changes. Encephalomalacia and gliosis related to remote left parieto-occipital infarct. No significant T2/flair signal abnormalities of the brain parenchyma. Flow voids at the level the skull base appear patent. Mastoid air cells are clear. Paranasal sinuses are generally clear. Prior bilateral lens replacement. No abnormal enhancement. IMPRESSION: 1. Motion degraded exam. 2. There are a few punctate foci of restricted diffusion within the right frontal lobe suggestive of tiny acute or subacute lacunar infarcts. 3. Age-related involutional changes with remote infarct of the left parieto- occipital distribution. 4. No abnormal enhancement. Medications Administered Current Inpatient Medications Acetaminophen (Tylenol) 650 mg PO Q4H PRN PRN Reason: Pain or Fever Stop: 05/04/19 18:04 Aspirin (Ecotrin Ectab) 81 mg PO DAILY [facility] Stop: 05/05/19 08:59 Last Admin: 04/05/19 10:51 Dose: 81 mg Documented by: Atorvastatin Calcium (Lipitor) 80 mg PO DAILY [facility] Stop: 05/05/19 08:59 Last Admin: 04/05/19 10:51 Dose: 80 mg Documented by: Clopidogrel Bisulfate (Plavix) 75 mg PO QAM [facility] Stop: 05/04/19 18:29 Last Admin: 04/05/19 10:52 Dose: 75 mg Documented by: Dextrose (Dextrose 50%) 25 - 50 ml IV UD PRN; Protocol PRN Reason: Hypoglycemia Protocol Stop: 05/04/19 19:02 Enoxaparin Sodium (Lovenox) 40 mg SQ Q24H [facility] Stop: 05/04/19 18:59 Last Admin: 04/04/19 21:16 Dose: 40 mg Documented by: Fish Oil ([place]-3 (Purified Fish Oil)) 1 gm PO BID [facility] Stop: 05/04/19 20:59 Last Admin: 04/05/19 10:51 Dose: 1 gm Documented by: Gadobutrol (Gadavist 65ml) 9.2 ml IV ONCE PRN PRN Reason: Interaction Checking Stop: 04/08/19 20:58 Last Admin: 04/04/19 21:00 Dose: 9.2 ml Documented by: Glucagon (Glucagen) 1 mg SQ UD PRN; Protocol PRN Reason: Hypoglycemia Protocol Stop: 05/04/19 19:02 Glucose (Glucose 40%) 15 - 30 gm PO UD PRN; Protocol PRN Reason: Hypoglycemia Protocol Stop: 05/04/19 19:02 Glucose (Dex4 Glucose) 4 - 8 tabs PO UD PRN; Protocol PRN Reason: Hypoglycemia Protocol Stop: 05/04/19 19:02 Insulin Aspart (Novolog Flexpen) 0 units SC ACHS [facility] Stop: 05/05/19 11:29 Last Admin: 04/05/19 12:29 Dose: 5 units Documented by: Lisinopril (Zestril) 5 mg PO DAILY [facility] Stop: 05/05/19 08:59 Metoprolol Succinate (Toprol Xl) 50 mg PO DAILY [facility] Stop: 05/05/19 08:59 Miscellaneous (Carbohydrates For Hypoglycemia) 15 - 30 gm PO UD PRN PRN Reason: Hypoglycemia Protocol Stop: 05/04/19 19:02 Miscellaneous Information (Pharmacist Discharge Med Rec Consult) 1 ea N/A UD PRN PRN Reason: Consult Stop: 05/04/19 18:04 Polyethylene Glycol (Miralax Powder Packet) 17 gm PO DAILY PRN PRN Reason: Constipation Stop: 05/04/19 18:04 Prednisone (Prednisone) 60 mg PO DAILY [facility] Stop: 05/05/19 08:59 Last Admin: 04/05/19 10:52 Dose: 60 mg Documented by: Zolpidem Tartrate (Ambien) 5 mg PO HS PRN PRN Reason: Sleep Stop: 05/04/19 18:55
[2019-04-05] MEDS: ENOXAPARIN INJ 40 MG/0.4 ML SYR SQ SCH (18:34)
[2019-04-06 06:39] LABS: Hematocrit (blood only) 40.9 % (42-52); Hemoglobin 13.5 g/dL (14.0-18.0); Mean Corpuscular Hemoglobin 28.7 pg (25-34); Mean Corpuscular Volume 86.8 fL (80-100); Mean Platelet Volume 9.7 fL (7.4-10.4); Platelet Count 331 K/uL (130-400); RDW Coefficient of Variation 13.9 % (11.5-14.5); RDW Standard Deviation 43.9 fL (36.4-46.3); Red Blood Count 4.71 M/uL (4.7-6.1); White Blood Count 9.47 K/uL (4.8-10.8)
[2019-04-06 07:13] LABS: BUN Creatinine Ratio 18.2 (10-20); Calcium 9.1 mg/dl (8.5-10.1); Creatinine Clr Calc Pharmacy 70.1 ml/min; Est GFR (African American) 86.3; Est GFR (Non-African American) 74.5; Potassium 3.8 mmol/L (3.5-5.1)
[2019-04-06] MEDS: INSULIN ASPART 100 UNITS/ML 3 ML PEN SC SCH ×2 (08:02→12:01)
[2019-04-06] MEDS: ATORVASTATIN 40 MG TAB PO SCH (08:04)
[2019-04-06] MEDS: CLOPIDOGREL BISULFATE 75 MG TAB PO SCH (08:04)
[2019-04-06] MEDS: OMEGA-3 (PURIFIED FISH OIL) 1 GM CAP PO SCH (08:05)
[2019-04-06] MEDS: ASPIRIN 81 MG ECTAB PO SCH (08:05)
[2019-04-06] MEDS ORDERED: METOPROLOL SUCC 50MG EXT REL TAB PO SCH (11:00)
--- NOTE | 2019-04-06 11:02 | Cardiology Progress Note ---
Date of Service April 06, 2019 Assessment & Plan (1) Stroke-like symptoms: (2) Ischemic cardiomyopathy: (3) CAD (coronary artery disease): (4) DM type 2 (diabetes mellitus, type 2): (5) Systolic CHF: From a cardiac standpoint I believe patient can be discharged home. His telemetry has been sinus rhythm and no evidence of atrial fibrillation. After discharge she should have a zio patch placed for at least 1 week to monitor for atrial fibrillation as an etiology to his stroke. He should continue on aspirin and Plavix. With his history of severe ischemic cardiomyopathy he has to remain on his medications including the metoprolol and lisinopril which I started today. He has a follow-up appointment with me on June 03 which she will keep. Subjective The patient has been walking in the hallway. He has no new complaints and is anxious to return home. Review of Systems Review of Systems: All systems reviewed & are unremarkable except as noted in HPI & below Nothing additional to add. Physical Exam Physical Exam: General: no acute distress and stated age Head: normocephalic, no masses, lesions, tenderness or abnormalities Eyes: conjunctiva are pink and non-injected, sclera clear Neck: supple, no adenopathy, no bruits, normal jugular venous pulse, no hepatojugular reflux Chest: normal shape and normal respiratory effort Lungs: clear to auscultation and percussion Cardiac Exam: - regular rate & rhythm, no murmurs gallops or rubs - normal S1, normal S2 Pulses: 2(+) throughout Abdomen: abdomen soft, non-tender, no abnormal masses and no hepatosplenomegaly Musculoskeletal: no gait disturbance, no joint inflammation, no deforming arthritis Extremities: no edema and no cyanosis Neuro: grossly normal exam Results & Data Vital Signs (Past 12 Hours) Vital Signs Temp Pulse Pulse Resp BP Pulse Ox 04/06/19 07:07 36.4 C L 70 18 140/76 95 04/06/19 03:35 36.5 C 74 18 118/56 L 98 04/05/19 23:18 76 04/05/19 23:17 36.4 C L 78 17 130/66 96 Laboratory Results Laboratory Results - last 24 hr 04/05/19 04/05/19 04/05/19 11:31 16:37 20:17 WBC RBC Hgb Hct MCV MCH MCHC RDW Std Deviation RDW Coeff of Earl Plt Count MPV Sodium Potassium Chloride Carbon Dioxide Anion Gap BUN Creatinine Est Cr Clr Drug Dosing Est GFR ( Amer) Est GFR (Non-Af Amer) BUN/Creatinine Ratio Glucose POC Glucose 193 H 152 H 114 H Calcium 04/06/19 04/06/19 04/06/19 06:02 06:02 07:03 WBC 9.47 RBC 4.71 Hgb 13.5 L Hct 40.9 L MCV 86.8 MCH 28.7 MCHC 33.0 RDW Std Deviation 43.9 RDW Coeff of Earl 13.9 Plt Count 331 MPV 9.7 Sodium 141 Potassium 3.8 D Chloride 108 H Carbon Dioxide 29 Anion Gap 4.0 BUN 18 Creatinine 0.97 Est Cr Clr Drug Dosing 70.1 Est GFR ( Amer) 86.3 Est GFR (Non-Af Amer) 74.5 BUN/Creatinine Ratio 18.2 Glucose 136 H POC Glucose 128 H Calcium 9.1 Medications Administered Current Inpatient Medications Acetaminophen (Tylenol) 650 mg PO Q4H PRN PRN Reason: Pain or Fever Stop: 05/04/19 18:04 Aspirin (Ecotrin Ectab) 81 mg PO DAILY ERNESTO Stop: 05/05/19 08:59 Last Admin: 04/06/19 08:05 Dose: 81 mg Documented by: Atorvastatin Calcium (Lipitor) 80 mg PO DAILY ERNESTO Stop: 05/05/19 08:59 Last Admin: 04/06/19 08:04 Dose: 80 mg Documented by: Clopidogrel Bisulfate (Plavix) 75 mg PO QAM ERNESTO Stop: 05/04/19 18:29 Last Admin: 04/06/19 08:04 Dose: 75 mg Documented by: Dextrose (Dextrose 50%) 25 - 50 ml IV UD PRN; Protocol PRN Reason: Hypoglycemia Protocol Stop: 05/04/19 19:02 Enoxaparin Sodium (Lovenox) 40 mg SQ Q24H ERNESTO Stop: 05/04/19 18:59 Last Admin: 04/05/19 18:34 Dose: 40 mg Documented by: Fish Oil (Glentana-3 (Purified Fish Oil)) 1 gm PO BID ERNESTO Stop: 05/04/19 20:59 Last Admin: 04/06/19 08:05 Dose: 1 gm Documented by: Gadobutrol (Gadavist 65ml) 9.2 ml IV ONCE PRN PRN Reason: Interaction Checking Stop: 04/08/19 20:58 Last Admin: 04/04/19 21:00 Dose: 9.2 ml Documented by: Glucagon (Glucagen) 1 mg SQ UD PRN; Protocol PRN Reason: Hypoglycemia Protocol Stop: 05/04/19 19:02 Glucose (Glucose 40%) 15 - 30 gm PO UD PRN; Protocol PRN Reason: Hypoglycemia Protocol Stop: 05/04/19 19:02 Glucose (Dex4 Glucose) 4 - 8 tabs PO UD PRN; Protocol PRN Reason: Hypoglycemia Protocol Stop: 05/04/19 19:02 Insulin Aspart (Novolog Flexpen) 0 units SC ACHS [facility] Stop: 05/05/19 11:29 Last Admin: 04/06/19 08:02 Dose: 4 units Documented by: Lisinopril (Zestril) 5 mg PO DAILY [facility] Stop: 05/05/19 08:59 Metoprolol Succinate (Toprol Xl) 50 mg PO QAM [facility] Stop: 05/06/19 10:59 Miscellaneous (Carbohydrates For Hypoglycemia) 15 - 30 gm PO UD PRN PRN Reason: Hypoglycemia Protocol Stop: 05/04/19 19:02 Miscellaneous Information (Pharmacist Discharge Med Rec Consult) 1 ea N/A UD PRN PRN Reason: Consult Stop: 05/04/19 18:04 Polyethylene Glycol (Miralax Powder Packet) 17 gm PO DAILY PRN PRN Reason: Constipation Stop: 05/04/19 18:04 Zolpidem Tartrate (Ambien) 5 mg PO HS PRN PRN Reason: Sleep Stop: 05/04/19 18:55
[2019-04-06] MEDS ORDERED: lisinopriL 5 MG TAB PO SCH (11:30)
--- NOTE | 2019-04-06 11:49 | Discharge Summary ---
Date of Service April 06, 2019 Admission HPI Per Admitting Provider This is a 78yo M with a PMH of CAD, HTN, diet controlled DM II and other medical problems listed below who presents with strokelike symptoms starting early this morning. Patient states he woke up early around 0400 and was coughing with sputum production when his woke up to see if he was okay. When responding and attempting to say "I am okay," patient's words came out jumbled. was concerned and wanted to bring patient into ED but he wanted to continue practicing the phrase to see if speech issue would resolve on its own. also noted left facial droop and patient endorses difficulty swallowing at this time as well. Patient went back to sleep for few hours and upon waking, still had intermittent difficulty with expressive speech. States that he continued to "slurred" words and had a tingling sensation on right side of upper lip. Eventually was agreeable to coming to ED for further evaluation in the early afternoon. In ED, patient found to still have left-sided facial droop and some dysarthria. Still also experiencing paresthesias above right lip. Denies any weakness or difficulty with ambulation. No known stroke history. Denies any fever, chills, lightheadedness, visual changes, chest pain, palpitations, shortness of breath, nausea, vomiting, abdominal pain, dysuria, diarrhea or constipation. Does endorse malaise, fever and chills last week from to Sunday, which resolved on Sunday. Followed up with PCP who thought patient may have had flu. Admission Exam Per Admitting Provider Constitutional: WD/WN, vitals as above Eyes: PERRL, conjunctivae normal, anicteric sclerae ENMT: external ear and nose normal, oropharynx normal Respiratory: + tachypneic (Mild); no respiratory distress Auscultation: + diminished lung sounds and + rales (Bilateral mid to lower lung diallo, L > R ) Cardiovascular: Rate/Rhythm: regular rhythm and + tachycardic Vessels: normal peripheral pulses Extremities: no edema Gastrointestinal (Abdomen): normal bowel sounds, soft, nontender, no hepatosplenomegaly Musculoskeletal: no cyanosis or clubbing, extremities motor strength 5/5 Skin: no rashes, warm and dry Neurologic: PERRL,EOMI, accommodation nl, no face palsy, no dysarthria Psychiatric: A+Ox3, euthymic affect Principal Diagnosis acute frontal stroke Discharge Data Allergies Allergy/AdvReac Type Severity Reaction Status Date / Time Penicillins Allergy Intermediate TONGUE Verified 04/04/19 14:50 SWELLING Consultations 04/04/19 15:26 ED Decision to Admit Stat 04/04/19 18:05 Consult Case Management - Discharge Planning Routine Consult Neurology Routine 04/05/19 09:19 Consult Cardiology Routine Ordered Studies 04/04/19 14:24 CT head/brain wo con Stat 04/04/19 14:25 CT angio head w con Stat CT angio neck with con Stat 04/04/19 18:05 MR brain wo/w con Routine Hospital Course (1) Acute ischemic stroke: (2) CAD (coronary artery disease): (3) Ischemic cardiomyopathy: 78-year-old man admitted to the hospitalist service for strokelike symptoms. Osborne's palsy was in the differential and prednisone was started at 60 mg daily. His left-sided facial droop improved overnight and speech improved. Prednisone was stopped the following day. He had no residual deficits on hospital Day 2. Neurology was consulted with work-up including brain MRI revealing a frontal cortical infarction. As this location is very typical for an embolic infarction, cardiology was consulted. Cardiology recommendations included continuation of the Plavix and aspirin only without additional anticoagulation with a NOAC as he has had chronic systolic heart failure and done remarkably well for over 25 years with no treatment. 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 However, should he develop paroxysmal atrial fibrillation then a NOAC, preferably Eliquis,would be recommended. An outpatient ZIO patch was recommended at time of discharge to investigate this further. Work-up also included an echocardiogram revealing a ejection fraction of 30 to 35% and akinesis of the anterior, septal and apical myocardium consistent with previous infarct. Injection of contrast documented no interatrial shunt. The intra- atrial septum was intact with no evidence of an atrial septal defect. At time of discharge patient was experiencing a complete resolution of symptoms and was ambulating and mentating at baseline. He was tolerating p.o. and swallowing with no difficulties. He was hemodynamically stable and afebrile and again was in sinus rhythm on telemetry. He was sent home in stable condition on appropriate medical therapy for secondary prevention of stroke. Close primary care follow-up was recommended. Physical exam at time of discharge was completely unremarkable. Total Time Total Time Spent Total Time Spent (In Minutes): 60 Discharge Plan Discharge Items Patient Disposition: Home - Self-Care Reason For Visit: STROKE LIKE SYMPTOMS Discharge Diagnosis: acute frontal stroke Condition on Discharge: Good Activity: Resume your previous activity Non-emergency contact: Primary Care Provider Call non-emergency contact if: you have any medication questions, your symptoms worsen, your pain is not controlled, your pain is worsening, your pain is unusual for you, your pain is concerning for you and you have a fever Follow-up/Referrals: Scott Lugo MD [Primary Care Provider] - Diet: Carb Consistent or DM2 Addtl Attending Provider Instructions: Please take all medications as instructed on discharge list below. Please follow-up with [facility]rology in 4-6 weeks. It is recommended that you follow-up with your primary care provider (PCP) within one week of discharge from the hospital. Someone from our staff will contact you on Sunday regarding setting this up. It is recommended that you have an event monitor for one week to monitor your heart for any underlying arrythmias that may have caused the stroke. This will be ordered by your PCP. Please follow up with your [facility] as instructed. It was a pleasure taking care of you! Please call if you have any questions or problems. You can reach a [facility] hospitalist on duty at [facility] 24 hours a day by calling [phone]. Take care of yourself. Nette Benjamin, [facility] Hospitalist Addtl Obstetrics/Gynecology Nurse Provider Instructions: Risk Factors for Stroke: You can reduce your chances of stroke by working with your medical provider to adopt a healthy lifestyle. Some specific ways to lower your chance of stroke are: * If you are a smoker, now is the time to stop smoking cigarettes * If you are diabetic, improve the control of your blood sugars * Avoid excessive amounts of alcohol * Control high blood pressure * Lose weight if you are overweight * Be sure to lead an active lifestyle * Eat a healthy diet low in salt, cholesterol and fat You should know about other risk factors for stroke that you are unable to control. These include: * Age 55 years or older * Male gender * Certain racial groups: , or / * Family History of Stroke, Mini stroke or Heart Attack * Sickle Cell Disease Follow Up: It is important for you to keep your follow up appointments with your medical provider. Who to Call and When: Medical Emergencies: Call 911 immediately if you experience any of the following warning signs and symptoms of Stroke: * Sudden numbness or weakness of the face, arm or leg, especially on one side of the body * Sudden confusion, trouble speaking or understanding * Sudden trouble seeing in one or both eyes * Sudden trouble walking, dizziness, loss of balance or coordination * Sudden severe headache with no cause Do not delay calling 911 if you experience any warning signs or symptoms of a stroke. Delay in seeking medical attention may affect what treatments can be given to you. . Pending Studies at Discharge: No Stand-Alone Forms: Medications to Prevent Stroke, My [facility], Smoking Cessation Medications and DC Order Prescriptions: New clopidogrel 75 mg Tablet 75 mg PO QAM Qty: 30 RF: 0 Continued lisinopril 5 mg tablet 5 mg PO DAILY RF: 0 atorvastatin 80 mg tablet 80 mg PO DAILY RF: 0 metoprolol succinate 50 mg Tablet Extended Release 24 Hr 50 mg PO DAILY RF: 0 aspirin 81 mg Tablet,Delayed Release (Dr/Ec) 81 mg PO DAILY RF: 0 Fish Oil 360 mg-144 mg- 216 mg-1,200 mg Capsule,Delayed Release(Dr/Ec) 1 cap PO BID RF: 0 Discharge Orders: Discharge Order (Routine); Ordered 04/06/19 Ordered By: Nette Rossi/Other Patient Handouts: Hyperglycemia, Hypoglycemia, Diabetes Type 2 Coping, Stroke Sx, Stroke Taking Meds, Stroke Risk Factors, Diabetes Meal Planning, Clopidogrel tablets Admission Data Admit Date/Time: 04/04/19 16:09 Attending Provider: Nette Benjamin Admit Provider: Marizol Norris Primary Care Provider: Scott Lugo Other Providers: Marizol Norris ; Moraima Umaña ; Zbigniew Jolley Other Interventions: Discharge Summary Assessment (RN) Last Done: 04/06/19 12:38 DC Date/Time DO NOT enter until pt leaves facility: 04/06/19 14:25
[2019-04-06] MEDS ORDERED: STROKE PATIENT DISCHARGE STA (12:30)
--- NOTE | 2019-04-06 14:14 | Pharmacy Report ---
Pharmacist Stroke Counseling - Date of Service April 06, 2019 - Scope: Pharmacy has been consulted to provide medication discharge counseling for this patient admitted with ischemic stroke as per the Pharmacist Discharge Counseling for Stroke Patients Protocol. - Medications on Discharge: Home Medications Medication Instructions Recorded Confirmed atorvastatin 80 mg tablet 80 mg PO DAILY tab 11/26/18 04/04/19 lisinopril 5 mg tablet 5 mg PO DAILY tab 11/26/18 04/04/19 Fish Oil 1 cap PO BID 01/03/19 04/04/19 aspirin 81 mg PO DAILY 01/03/19 04/04/19 metoprolol succinate 50 mg PO DAILY 01/03/19 04/04/19 New Rx's Medication Instructions Recorded clopidogrel 75 mg PO QAM #30 tab 04/06/19 - Action: The above medications, specifically ones for stroke treatment/prophylaxis, have been reviewed in detail with the patient and/or patient financial foundations representative(s) prior to discharge. This includes indication, common adverse reactions, drug interactions, and medication administration. Medication counseling has been employed using the teach-back method to ensure understanding. - Outcome: The patient and patient financial foundations representative (spouse) have demonstrated understanding of the medications. Please note, they are aware that the pharmacist will call them within 72 hours post-discharge to confirm that the appropriate medications are being taken and answer any further medication related questions the patient might have at that time. Contact information Individual to be contacted: Patient Renita) Phone number: [phone] Best time to call: After 0900 Additional comments: - Patient did have questions regarding how "thin" his blood would be and what to do in situations of bruising/bleeding Thank you for allowing pharmacy to be involved in the care of this patient. Please call [phone] or [phone] with any additional questions
--- NOTE | 2019-04-06 14:38 | Progress Note ---
DATE: 04/06/2019 SUBJECTIVE: I am seeing Mr. Mckeon in followup of a right frontal infarction which was cortical. His echo actually showed a higher ejection fraction than prior showing 30-35%. There were multiple wall motion abnormalities. No atrial fibrillation has been noted. The patient has not had any recurrent events. CTA of the neck was unremarkable. CTA of head was unremarkable as well. The patient has had no recurrent events. PHYSICAL EXAMINATION: GENERAL: He is awake and alert. NEUROLOGIC Speech and language are normal. There is mild flattening of the left nasolabial fold. No field cut. No visual extinction. No dysarthria or aphasia. There is symmetric strength, no drift. Rapid alternating movements seem symmetric. Gait is unremarkable. 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 I have discussed the case with cardiology. The patient is apparently a medical minimal-list. He has been doing well for 20 years,since the ischemic event which reduced his ejection fraction. At this point, I agree with antiplatelet therapy with dual aspirin and Plavix. The patient is to have a rn cardiac cath arranged for 2 weeks monitoring as an outpatient. The patient understands the issues associated with a cardiac sourceof stroke and need for prolonged monitoring. He is not inclined to take anticoagulants as a family member had a pacer and used anticoagulants and subsequently , although presumably not related to either. The patient should see me in followup post discharge. ASHKAN
--- NOTE | 2019-04-08 11:28 | Pharmacy Report ---
Pharmacist Post D/C Phone Note - Phone Note: Date of phone call: April 08, 2019. Individual with whom pharmacist spoke to: NOLBERTO WINTERS The following questions were reviewed during the phone call with responses listed below each: Can you tell me the medications that you are currently taking as well as when and how you take each medication? -See Table Below When have you missed any doses of your medications? - none What side effects are you having from your medications, specifically, the new medications you were started on? - none What questions do you have about your medications? - none What problems are you having obtaining your medications? - none When is your next appointment with your primary care doctor? - On sunday Additional comments: - Spoke with patient regarding medications on discharge. Patient reports no missed doses and no issues with obtaining medications. He follows up with his PCP on sunday this week. Recommended to him that he brings an update list of medications with him to his appt. No concerns/questions from patient at this time. No other pertinent positives on interview today As per the Pharmacist Discharge Counseling for Stroke Patients Protocol, this phone call has been completed within 72 hours of discharge. Thank you for allowing us to be involved in the care of this patient. - Home Medications: Home Medications Medication Instructions Recorded Confirmed atorvastatin 80 mg tablet 80 mg PO DAILY tab 11/26/18 04/04/19 lisinopril 5 mg tablet 5 mg PO DAILY tab 11/26/18 04/04/19 Fish Oil 1 cap PO BID 01/03/19 04/04/19 aspirin 81 mg PO DAILY 01/03/19 04/04/19 metoprolol succinate 50 mg PO DAILY 01/03/19 04/04/19 New Rx's Medication Instructions Recorded clopidogrel 75 mg PO QAM #30 tab 04/06/19
[2019-04-10 01:04] LABS: 18KDIGG Band REACTIVE; 23KDIGG Band NON-REACTIVE; 23KDIGM Band NON-REACTIVE; 28KDIGG Band NON-REACTIVE; 30KDIGG Band NON-REACTIVE; 39KDIGG Band REACTIVE; 39KDIGM Band REACTIVE; 41KDIGG Band REACTIVE; 41KDIGM Band NON-REACTIVE; 45KDIGG Band NON-REACTIVE; 58KDIGG Band REACTIVE; 66KDIGG Band REACTIVE; 93KDIGG Band NON-REACTIVE; Lyme Antibodies, WB IgG POSITIVE (NEGATIVE); Lyme Antibodies, WB IgM NEGATIVE (NEGATIVE)
== END 2019-04-06 14:25 | disposition home or self-care (01) | DRG 65 ==
LOC: ED 14:08 → SUATTDRO 16:09 → 2E 16:09

== ENCOUNTER 2021-02-06 00:41 | Observation (INO) ==
--- NOTE | 2021-02-06 02:02 | Emergency Department Note ---
Impression & Plan Atrial fibrillation, new onset, Pneumonia ADMIT ED Provider Note HPI: The patient is an 80-year-old male with history of coronary artery disease, type 2 diabetes, presents the emergency department with a chief complaint of generalized weakness, not feeling well, states he is also had a cough and some mild shortness of breath. Patient denies any fevers, denies any nausea or vomiting, denies any diarrhea. Patient stated symptoms just started earlier today. On arrival to the ED the patient was noted to be in atrial fibrillation with RVR however his rate did quickly respond when he got into bed and rested and did not require any rate control medication. He is saturating well on room air on my initial assessment, he is otherwise in no acute distress. He is afeb rile on presentation. He states he did receive his COVID-19 vaccinations earlier this year. ROS: -Pulmonary: Cough, shortness of breath -General: Generalized weakness/chills *10 point review systems was conducted and is otherwise negative unless stated above *Outpatient medications and allergy history reviewed PE: General: Alert, NAD HEENT: Normocephalic, atraumatic, trachea midline Eyes: Extraocular eye movement is intact, no scleral erythema Pulmonary: Slightly coarse breath sounds bilaterally that are diminished, no crackles or wheezing Cardio: Tachycardic rate with a regular rhythm GI: Abdomen is soft, nontender : No suprapubic tenderness MSK: No evidence of trauma or malformation of the extremities, no edema Skin: No evidence of rash Neuro: Alert, no focal deficits 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 fib ST changes: No ST elevation, left bundle branch block seen on previous EKGs Time: 0151 Medical Decision Making: Patient presented to the emergency department with complaint of generalized weakness, chills, cough, mild shortness of breath. His lab work shows evidence of a leukocytosis of 13.5, blood cultures were drawn in the ED. Patient was given a small bolus of 500cc IV fluid and none further given his history of CHF with reduced ejection fraction. Troponin is negative x1. Patient denies any chest pain. EKG does show evidence of atrial fibrillation which appears to be new onset. CT angiography of the chest was performed that shows evidence of what appears to be atypical infection, no evidence of pulmonary embolism. COVID-19 testing is negative here in the ED. I suspect the patient has a community-acquired pneumonia that may have caused him to go into atrial fibrillation. He denies any history of atrial fibrillation. Patient will be started on Levaquin given history of penicillin allergy (reaction of tongue swelling). Case was discussed with the on-call hospitalist for [facility], Dr. Dickinson, and the patient was admitted to a telemetry bed for further management. Patient was updated and aware of the above findings, he is in agreement to the above plan he was admitted in stable condition. * Diagnosis: New onset atrial fibrillation, community-acquired pneumonia * Disposition: Admission Mian Moseley DO Emergency Medicine Past Med/Surg History Medical History (Updated 02/06/21 @ 04:35 by Mian Moseley DO) CAD (coronary artery disease) 1995-anterior wall [place], no intervention DM type 2 (diabetes mellitus, type 2) Dyslipidemia HTN (hypertension) Ischemic cardiomyopathy Systolic CHF Surgical History (Updated 07/04/19 @ 09:46 by Koko Ozuna MD) History of appendectomy History of cataract surgery Family History Sister Multiple myeloma Brother Heart disease Social History Smoking Status: Never smoker Second Hand Exposure: No; Hx Alcohol Use: Yes Alcohol type: wine Hx Substance Use: No Preferred Language: Lithuanian Communication Ability: Effective Nurse Informaticist Required: No Beliefs That Will Affect Care: None marital status: Current Living Situation: Spouse Feels Safe at Home: Yes Assistive Devices: Glasses Allergies Allergies Allergy/AdvReac Type Severity Reaction Status Date / Time Penicillins Allergy Intermediate TONGUE Verified 02/06/21 02:15 SWELLING Home Meds Home Medications Medication Instructions Recorded Confirmed atorvastatin 80 mg tablet 80 mg PO DAILY tab 11/26/18 02/06/21 lisinopril 5 mg tablet 5 mg PO DAILY tab 11/26/18 02/06/21 aspirin 81 mg tablet,delayed 81 mg PO DAILY 01/03/19 02/06/21 release omega-3 360 mg-dha 144 mg-epa 216 1 cap PO BID 01/03/19 02/06/21 mg-fish oil 1,200 mg capsule,del rel (Fish Oil) metoprolol succinate 50 mg 50 mg PO DAILY tab 07/26/20 02/06/21 tablet,extended release 24 hr Previous Rx's Medication Instructions Recorded clopidogrel 75 mg tablet 75 mg PO QAM #30 tab 04/06/19 Results & Data (ED) Vital Signs Vital Signs - 24 hr 02/06/21 00:48 02/06/21 01:55 02/06/21 02:00 Temperature 37.5 C Temperature Source Temporal Artery Scan Pulse Rate 99 H Pulse Rate [Apical] 102 H 96 H Pulse Rate from SpO2 Sensor Pulse Rhythm [Apical] Irregular Irregular Pulse Strength [Apical] Normal Normal Respiratory Rate 18 25 H 26 H Respiratory Effort / Characteristics Non-Labored Spontaneous Non-Labored Spontaneous Non-Labored Spontaneous Respiratory Depth Normal Normal Normal Respiratory Pattern Regular Regular Regular Blood Pressure 104/62 Blood Pressure [Left Arm] 97/37 L 110/59 L Blood Pressure Mean 76 Blood Pressure Mean [Left Arm] 57 76 Blood Pressure Position [Left Arm] Sitting Sitting Pulse Oximetry 92 94 94 Oxygen Delivery Method Room Air Room Air Room Air Sepsis Recent Fever Within 48 Hours Yes Sepsis New/Unexplained Change in Mental Status No Sepsis Action Taken by Nursing No Action Required 02/06/21 02:15 02/06/21 02:30 02/06/21 03:17 Temperature Temperature Source Pulse Rate 107 H 107 H Pulse Rate [Apical] Pulse Rate from SpO2 Sensor 86 93 H Pulse Rhythm [Apical] Pulse Strength [Apical] Respiratory Rate 24 25 H 25 H Respiratory Effort / Characteristics Non-Labored Spontaneous Labored Respiratory Depth Respiratory Pattern Blood Pressure 109/56 L 98/57 L Blood Pressure [Left Arm] Blood Pressure Mean 73 70 Blood Pressure Mean [Left Arm] Blood Pressure Position [Left Arm] Pulse Oximetry 91 92 91 Oxygen Delivery Method Room Air Room Air Room Air Sepsis Recent Fever Within 48 Hours Sepsis New/Unexplained Change in Mental Status Sepsis Action Taken by Nursing Laboratory Data Result diagrams: 02/06/21 01:45 02/06/21 01:45 Lab Results 02/06/21 02/06/21 02/06/21 Range/Units 01:45 01:45 01:45 WBC 13.49 H (4.8-10.8) K/uL RBC 4.75 (4.7-6.1) M/uL Hgb 13.6 L (14.0-18.0) g/dL Hct 41.6 L (42-52) % MCV 87.6 (80-100) fL MCH 28.6 (25-34) pg MCHC 32.7 (32-36) g/dL RDW Std Deviation 42.6 (36.4-46.3) fL RDW Coeff of Earl 13.3 (11.5-14.5) % Plt Count 240 (130-400) K/uL MPV 10.1 (7.4-10.4) fL Immature Gran % (Auto) 0.1 % Neut % (Auto) 86.2 % Lymph % (Auto) 6.3 % [place] % (Auto) 6.9 % Eos % (Auto) 0.3 % Baso % (Auto) 0.2 % Neut # (Auto) 11.62 H (1.4-6.5) K/uL Lymph # (Auto) 0.85 L (1.2-3.4) K/uL [place] # (Auto) 0.93 H (0.11-0.59) K/uL Eos # (Auto) 0.04 (0-0.5) K/uL Baso # (Auto) 0.03 (0-0.2) K/uL Immature Gran # (Auto) 0.02 (0.00-0.02) K/uL PT 10.9 (9.0-12.0) Seconds INR 1.1 (0.9-1.1) APTT 28.6 (21.0-31.0) Seconds PTT Ratio 1.1 Sodium 137 (136-145) mmol/L Potassium 4.2 (3.5-5.1) mmol/L Chloride 107 (98-107) mmol/L Carbon Dioxide 27 (21-32) mmol/L Anion Gap 3.0 (3-11) BUN 20 H (7-18) mg/dl Creatinine 1.13 (0.6-1.4) mg/dl Est Cr Clr Drug Dosing 50.4 ml/min Est GFR ( Amer) 70.8 ml/min Est GFR (Non-Af Amer) 61.1 ml/min BUN/Creatinine Ratio 17.7 (10-20) Glucose 198 H (70-99) mg/dl Calcium 8.7 (8.5-10.1) mg/dl Magnesium 1.6 L (1.8-2.4) mg/dl Total Bilirubin 1.1 H (0.2-1) mg/dl AST 14 L (15-37) U/L ALT 27 (12-78) Alkaline Phosphatase 80 (45-117) U/L Troponin I < 0.015 (0-0.045) ng/ml NT-Pro-B Natriuret Pep 1516 (0-1800) pg/ml Total Protein 6.8 (6.4-8.2) gm/dl Albumin 3.3 L (3.4-5.0) gm/dl Globulin 3.5 (2.5-4.0) gm/dl Albumin/Globulin Ratio 0.9 (0.9-2) SARS-CoV-2 (PCR) (Negative) Influenza Type A (PCR) (Neg) Influenza Type B (PCR) (Neg) RSV (RT-PCR) (Neg) 02/06/21 Range/Units 02:15 WBC (4.8-10.8) K/uL RBC (4.7-6.1) M/uL Hgb (14.0-18.0) g/dL Hct (42-52) % MCV (80-100) fL MCH (25-34) pg MCHC (32-36) g/dL RDW Std Deviation (36.4-46.3) fL RDW Coeff of Earl (11.5-14.5) % Plt Count (130-400) K/uL MPV (7.4-10.4) fL Immature Gran % (Auto) % Neut % (Auto) % Lymph % (Auto) % [place] % (Auto) % Eos % (Auto) % Baso % (Auto) % Neut # (Auto) (1.4-6.5) K/uL Lymph # (Auto) (1.2-3.4) K/uL [place] # (Auto) (0.11-0.59) K/uL Eos # (Auto) (0-0.5) K/uL Baso # (Auto) (0-0.2) K/uL Immature Gran # (Auto) (0.00-0.02) K/uL PT (9.0-12.0) Seconds INR (0.9-1.1) APTT (21.0-31.0) Seconds PTT Ratio Sodium (136-145) mmol/L Potassium (3.5-5.1) mmol/L Chloride (98-107) mmol/L Carbon Dioxide (21-32) mmol/L Anion Gap (3-11) BUN (7-18) mg/dl Creatinine (0.6-1.4) mg/dl Est Cr Clr Drug Dosing ml/min Est GFR ( Amer) ml/min Est GFR (Non-Af Amer) ml/min BUN/Creatinine Ratio (10-20) Glucose (70-99) mg/dl Calcium (8.5-10.1) mg/dl Magnesium (1.8-2.4) mg/dl Total Bilirubin (0.2-1) mg/dl AST (15-37) U/L ALT (12-78) Alkaline Phosphatase (45-117) U/L Troponin I (0-0.045) ng/ml NT-Pro-B Natriuret Pep (0-1800) pg/ml Total Protein (6.4-8.2) gm/dl Albumin (3.4-5.0) gm/dl Globulin (2.5-4.0) gm/dl Albumin/Globulin Ratio (0.9-2) SARS-CoV-2 (PCR) NEGATIVE (Negative) Influenza Type A (PCR) Negative (Neg) Influenza Type B (PCR) Negative (Neg) RSV (RT-PCR) Negative (Neg) Administered Medications Discontinued Medications Sodium Chloride (Nss 1000ml) 500 mls @ 999 mls/hr IV .Q31M ONE Stop: 02/06/21 04:06 Last Infusion: 02/06/21 04:20 Dose: 0 mls/hr Documented by: [id number] Admin: 02/06/21 03:47 Dose: 999 mls/hr Documented by: [id number] Ioversol (Optiray 320 125ml) 120 ml IV ONCE ONE Stop: 02/06/21 03:16 Last Admin: 02/06/21 03:07 Dose: 120 ml Documented by: [id number] Discharge Plan Visit Data Chief Complaint: Respiratory Problems Stated Complaint: FEVER,COUGH,HARD TIME BREATHING ED Provider: Mian Moseley Discharge Problem: Atrial fibrillation, new onset, Pneumonia Forms Stand Alone Forms: [facility] Prescriptions Prescriptions: No Action lisinopril 5 mg tablet 5 mg PO DAILY RF: 0 atorvastatin 80 mg tablet 80 mg PO DAILY RF: 0 aspirin 81 mg Tablet,Delayed Release (Dr/Ec) 81 mg PO DAILY RF: 0 Fish Oil 360 mg-144 mg- 216 mg-1,200 mg Capsule,Delayed Release(Dr/Ec) 1 cap PO BID RF: 0 metoprolol succinate 50 mg tablet extended release 24 hr 50 mg PO DAILY RF: 0 clopidogrel 75 mg Tablet 75 mg PO QAM Qty: 30 RF: 0 Referrals Referrals: Scott Lugo MD [Physician] - Discharge Problem: Pneumonia Qualifiers: Pneumonia type: due to unspecified organism Laterality: unspecified laterality Lung location: unspecified part of lung Qualified Code(s): J18.9 - Pneumonia, unspecified organism
[2021-02-06 02:14] LABS: Basophils # (auto) 0.03 K/uL (0-0.2); Basophils % (auto) 0.2 %; Eosinophils # (auto) 0.04 K/uL (0-0.5); Eosinophils % (auto) 0.3 %; Hematocrit (blood only) 41.6 % (42-52); Hemoglobin 13.6 g/dL (14.0-18.0); Immature Granulocytes # (auto) 0.02 K/uL (0.00-0.02); Immature Granulocytes % (auto) 0.1 %; Lymphocytes # (auto) 0.85 K/uL (1.2-3.4); Lymphocytes % (auto) 6.3 %; Mean Corpuscular Hemoglobin 28.6 pg (25-34); Mean Corpuscular Hgb Conc 32.7 g/dL (32-36); Mean Corpuscular Volume 87.6 fL (80-100); Mean Platelet Volume 10.1 fL (7.4-10.4); Monocytes # (auto) 0.93 K/uL (0.11-0.59); Monocytes % (auto) 6.9 %; Neutrophils # (auto) 11.62 K/uL (1.4-6.5); Neutrophils % (auto) 86.2 %; Platelet Count 240 K/uL (130-400); RDW Coefficient of Variation 13.3 % (11.5-14.5); RDW Standard Deviation 42.6 fL (36.4-46.3); Red Blood Count 4.75 M/uL (4.7-6.1); White Blood Count 13.49 K/uL (4.8-10.8)
[2021-02-06 02:18] LABS: INR 1.1 (0.9-1.1); Partial Thromboplastin Ratio 1.1; Partial Thromboplastin Time 28.6 Seconds (21.0-31.0); Prothrombin Time 10.9 Seconds (9.0-12.0)
[2021-02-06 02:36] LABS: Alanine Aminotransferase 27 (12-78); Albumin Level 3.3 gm/dl (3.4-5.0); Aspartate Aminotransferase 14 U/L (15-37); BUN Creatinine Ratio 17.7 (10-20); Blood Urea Nitrogen 20 mg/dl (7-18); Calcium 8.7 mg/dl (8.5-10.1); Carbon Dioxide 27 mmol/L (21-32); Chloride 107 mmol/L (98-107); Creatinine Clr Calc Pharmacy 50.4 ml/min; Est GFR (African American) 70.8 ml/min; Est GFR (Non-African American) 61.1 ml/min; Glucose 198 mg/dl (70-99); Magnesium 1.6 mg/dl (1.8-2.4); Potassium 4.2 mmol/L (3.5-5.1); Sodium 137 mmol/L (136-145)
[2021-02-06 02:41] LABS: Albumin Globulin Ratio 0.9 (0.9-2); Alkaline Phosphatase 80 U/L (45-117); Bilirubin,Total 1.1 mg/dl (0.2-1); Globulin 3.5 gm/dl (2.5-4.0); NT Pro B Type Natriuretic Pept 1516 pg/ml (0-1800); Total Protein 6.8 gm/dl (6.4-8.2); Troponin I < 0.015 ng/ml (0-0.045)
[2021-02-06 02:59] LABS: Influenza A virus by PCR Negative (Neg); Influenza B virus by PCR Negative (Neg); RSV by PCR Negative (Neg)
[2021-02-06] MEDS ORDERED: OPTIRAY 320 125ml IV ONE (03:15)
[2021-02-06] MEDS ORDERED: SODIUM CHLORIDE 0.9% 1000ML 500 ML IV ONE (03:36)
[2021-02-06] MEDS ORDERED: AZITHROMYCIN 500 MG in DEXTROSE 5% 250 ML IV STA (04:23)
[2021-02-06] MEDS ORDERED: DIGOXIN 250 MCG in SYRINGE 9 ML IV ONE (04:50)
[2021-02-06] MEDS: MAGNESIUM SULFATE / D5W 1 GM/100 ML BAG IV SCH ×2 (04:59→05:38)
[2021-02-06 05:03] LABS: Thyroid Stimulating Hormone 0.736 uIu/ml (0.300-4.500)
[2021-02-06] MEDS ORDERED: XOPENEX/ATROVENT 1.25mg/0.5MG NEB COMBO NEB STA (05:18)
[2021-02-06] MEDS ORDERED: Heparin IV Adult Wt-Based Standard *NO* Bolus Protocol ONE (05:19)
--- NOTE | 2021-02-06 05:20 | History & Physical Report ---
Date of Service February 06, 2021 Assessment & Plan (1) Atrial fibrillation, new onset: Plan: Secondary to sepsis from atypical pneumonia chronic systolic heart failure secondary to ischemic cardiomyopathy (EF 30 to 35%, TTE 2019), patient euvolemic to dry hx CAD hypertension, BP on the lower side upon arrival at the ER hyperlipidemia on statin Rx hx CVA DM2 diet-controlled, reasonable control as of recent hemoglobin A1c of 7.08 November 2020 past tobacco abuse PCU CS, Doxycycline Continue patient's home beta-lux for rate control IV Heparin for thromboembolic prophylaxis TTE, Cardiology consult Re: New onset A. fib Basal insulin, ISS BG goal 1 10-1 40, carb count coverage DVT phylaxis with IV heparin Full code Text document was generated using Medcurrent voice recognition software. It may contain grammatical or spelling errors. Kindly contact undersigned for clarification of any documentation item in question. History of Present Illness Chief Complaint: Cough, shortness of breath, fever chills Primary Care Provider: Adam Siddiqi MD History obtained from patient and records. Medical history significant for chronic systolic heart failure secondary to ischemic cardiomyopathy (EF 30 to 35%, TTE 2019), CAD, hypertension, hyperlipidemia, history of CVA, DM2 diet-controlled, past tobacco abuse. 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 No atrial fibrillation on telemetry during confinement. Patient discharged on aspirin and Plavix. Outpatient Zio patch was was negative for A. fib Yesterday, patient noted junky cough symptoms with shortness of breath, fever, chills. No chest pain. Not sure about sick contacts. Patient completed COVID-19 vaccination. Patient consulted ER for worsening discomfort. Patient noted to be in A. fib at the emergency room. Levaquin given at the ER for sepsis. 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 Allergies Allergy/AdvReac Type Severity Reaction Status Date / Time Penicillins Allergy Intermediate TONGUE Verified 02/06/21 02:15 SWELLING Home Medications Medication Instructions Recorded Confirmed Type atorvastatin 80 mg tablet 80 mg PO DAILY tab 11/26/18 02/06/21 History lisinopril 5 mg tablet 5 mg PO DAILY tab 11/26/18 02/06/21 History aspirin 81 mg tablet,delayed 81 mg PO DAILY 01/03/19 02/06/21 History release omega-3 360 mg-dha 144 mg-epa 216 1 cap PO BID 01/03/19 02/06/21 History mg-fish oil 1,200 mg capsule,del rel (Fish Oil) clopidogrel 75 mg tablet 75 mg PO QAM #30 tab 04/06/19 02/06/21 Rx metoprolol succinate 50 mg 50 mg PO DAILY tab 07/26/20 02/06/21 History tablet,extended release 24 hr Past Med/Surg History Medical History (Updated 02/06/21 @ 04:35 by Mian Moseley DO) CAD (coronary artery disease) 1994-anterior wall [place], no intervention DM type 2 (diabetes mellitus, type 2) Dyslipidemia HTN (hypertension) Ischemic cardiomyopathy Systolic CHF Surgical History (Updated 07/04/19 @ 09:46 by Koko Ozuna MD) History of appendectomy History of cataract surgery Family History Sister Multiple myeloma Brother Heart disease Social History Smoking Status: Never smoker Second Hand Exposure: No; Hx Alcohol Use: Yes Alcohol type: wine Hx Substance Use: No Preferred Language: Yoruba Communication Ability: Effective Sugarcane Planter Required: No Beliefs That Will Affect Care: None marital status: Current Living Situation: Spouse Feels Safe at Home: Yes Assistive Devices: Glasses Review of Systems Review of Systems: As per HPI, all 10 systems reviewed, all other ROS negative Physical Exam Physical Exam: GENERAL: Comfortable, slightly anxious, no respiratory distress SKIN: Normal color, warm HEENT: Alopecia, [place] palpebral conjunctivae, no ptosis, dry buccal mucosa NECK : Supple, no tenderness CHEST : Decreased breath sounds, occasional expiratory wheezes, no tenderness HEART : Irregular, no obvious murmurs ABDOMEN: Some distention, nontender EXTREMITIES : No LE swelling/tenderness, no other conspicuous deformities noted NEUROLOGIC : Coherent, no facial asymmetry, no other gross focality Results & Data Results & Data ([facility]) Vital Signs (Past 12 Hours) Vital Signs Temp Pulse Pulse Resp BP BP Pulse Ox 02/06/21 04:30 99 H 32 H 126/87 94 02/06/21 04:00 88 24 95 02/06/21 03:30 94 H 28 H 94 02/06/21 03:17 25 H 91 02/06/21 03:00 88 32 H 92 02/06/21 02:30 107 H 25 H 98/57 L 92 02/06/21 02:15 107 H 24 109/56 L 91 02/06/21 02:00 96 H 26 H 110/59 L 94 02/06/21 01:55 102 H 25 H 97/37 L 94 02/06/21 00:48 37.5 C 99 H 18 104/62 92 Laboratory Results Laboratory Results WBC 13.49 K/uL (4.8-10.8) H 02/06/21 01:45 RBC 4.75 M/uL (4.7-6.1) 02/06/21 01:45 Hgb 13.6 g/dL (14.0-18.0) L 02/06/21 01:45 Hct 41.6 % (42-52) L 02/06/21 01:45 MCV 87.6 fL (80-100) 02/06/21 01:45 MCH 28.6 pg (25-34) 02/06/21 01:45 MCHC 32.7 g/dL (32-36) 02/06/21 01:45 RDW Std Deviation 42.6 fL (36.4-46.3) 02/06/21 01:45 RDW Coeff of Earl 13.3 % (11.5-14.5) 02/06/21 01:45 Plt Count 240 K/uL (130-400) 02/06/21 01:45 MPV 10.1 fL (7.4-10.4) 02/06/21 01:45 Immature Gran % (Auto) 0.1 % 02/06/21 01:45 Neut % (Auto) 86.2 % 02/06/21 01:45 Lymph % (Auto) 6.3 % 02/06/21 01:45 [place] % (Auto) 6.9 % 02/06/21 01:45 Eos % (Auto) 0.3 % 02/06/21 01:45 Baso % (Auto) 0.2 % 02/06/21 01:45 Neut # (Auto) 11.62 K/uL (1.4-6.5) H 02/06/21 01:45 Lymph # (Auto) 0.85 K/uL (1.2-3.4) L 02/06/21 01:45 [place] # (Auto) 0.93 K/uL (0.11-0.59) H 02/06/21 01:45 Eos # (Auto) 0.04 K/uL (0-0.5) 02/06/21 01:45 Baso # (Auto) 0.03 K/uL (0-0.2) 02/06/21 01:45 Immature Gran # (Auto) 0.02 K/uL (0.00-0.02) 02/06/21 01:45 PT 10.9 Seconds (9.0-12.0) 02/06/21 01:45 INR 1.1 (0.9-1.1) 02/06/21 01:45 APTT 28.6 Seconds (21.0-31.0) 02/06/21 01:45 PTT Ratio 1.1 02/06/21 01:45 Sodium 137 mmol/L (136-145) 02/06/21 01:45 Potassium 4.2 mmol/L (3.5-5.1) 02/06/21 01:45 Chloride 107 mmol/L (98-107) 02/06/21 01:45 Carbon Dioxide 27 mmol/L (21-32) 02/06/21 01:45 Anion Gap 3.0 (3-11) 02/06/21 01:45 BUN 20 mg/dl (7-18) H 02/06/21 01:45 Creatinine 1.13 mg/dl (0.6-1.4) 02/06/21 01:45 Est Cr Clr Drug Dosing 50.4 ml/min 02/06/21 01:45 Est GFR ( Amer) 70.8 ml/min 02/06/21 01:45 Est GFR (Non-Af Amer) 61.1 ml/min 02/06/21 01:45 BUN/Creatinine Ratio 17.7 (10-20) 02/06/21 01:45 Glucose 198 mg/dl (70-99) H 02/06/21 01:45 Lactate 1.8 mmol/L (0.4-2.0) 02/06/21 04:26 Calcium 8.7 mg/dl (8.5-10.1) 02/06/21 01:45 Magnesium 1.6 mg/dl (1.8-2.4) L 02/06/21 01:45 Total Bilirubin 1.1 mg/dl (0.2-1) H 02/06/21 01:45 AST 14 U/L (15-37) L 02/06/21 01:45 ALT 27 (12-78) 02/06/21 01:45 Alkaline Phosphatase 80 U/L (45-117) 02/06/21 01:45 Troponin I < 0.015 ng/ml (0-0.045) 02/06/21 01:45 NT-Pro-B Natriuret Pep 1516 pg/ml (0-1800) 02/06/21 01:45 Total Protein 6.8 gm/dl (6.4-8.2) 02/06/21 01:45 Albumin 3.3 gm/dl (3.4-5.0) L 02/06/21 01:45 Globulin 3.5 gm/dl (2.5-4.0) 02/06/21 01:45 Albumin/Globulin Ratio 0.9 (0.9-2) 02/06/21 01:45 TSH 0.736 uIu/ml (0.300-4.500) 02/06/21 01:45 SARS-CoV-2 (PCR) NEGATIVE (Negative) 02/06/21 02:15 Influenza Type A (PCR) Negative (Neg) 02/06/21 02:15 Influenza Type B (PCR) Negative (Neg) 02/06/21 02:15 RSV (RT-PCR) Negative (Neg) 02/06/21 02:[address] chest initial read: No pulmonaryembolus. No aortic aneurysm. Mild bilateral airspace opacities are most consistent with atypical infection. Small bilateral pleural effusions. The heart size iswithin normal limits. No pathologicallyenlarged lymph nodes. No fracture. Incidentallynoted cholelithiasis EKG as per my interpretation : Rate 105, A. fib, LAD, LAFB, LBBB
[2021-02-06] MEDS ORDERED: LEVALBUTEROL 1.25MG/0.5ML NEB INH STA (05:42)
[2021-02-06] MEDS ORDERED: IPRATROPIUM BROMIDE NEB SOLN 0.02% 2.5 ML VIAL INH STA (05:42)
[2021-02-06] MEDS: HEPARIN SODIUM/DEXTROSE 25,000 UNITS/500 ML BAG IV SCH (05:55)
[2021-02-06] MEDS ORDERED: ACETAMINOPHEN 325 MG TAB PO PRN (07:09)
[2021-02-06] MEDS ORDERED: CARBOHYDRATES FOR HYPOGLYCEMIA PO PRN (07:09)
[2021-02-06] MEDS ORDERED: NITROGLYCERIN SL 0.4 MG/TAB TAB SL PRN (07:09)
[2021-02-06] MEDS ORDERED: LORazepam 0.25 MG/0.5 ML VIAL IV PRN (07:09)
[2021-02-06] MEDS ORDERED: GLUCAGON FOR INJ 1 MG VIAL SQ PRN (07:09)
[2021-02-06] MEDS ORDERED: PROMETHAZINE HCL 12.5 MG in SODIUM CHLORIDE 0.9% 50 ML IV PRN (07:09)
[2021-02-06] MEDS ORDERED: GLUCOSE 40% GEL 15 GM TUBE PO PRN (07:09)
[2021-02-06] MEDS ORDERED: XOPENEX/ATROVENT 1.25mg/0.5MG NEB COMBO NEB PRN (07:09)
[2021-02-06] MEDS ORDERED: IPRATROPIUM BROMIDE NEB SOLN 0.02% 2.5 ML VIAL INH PRN (07:09)
[2021-02-06] MEDS ORDERED: DEXTROSE 50% 50 ML SYRINGE IV PRN (07:09)
[2021-02-06] MEDS ORDERED: traMADol HCL 50 MG TABLET PO PRN (07:09)
[2021-02-06] MEDS ORDERED: LEVALBUTEROL 1.25MG/0.5ML NEB INH PRN (07:09)
[2021-02-06] MEDS ORDERED: GLUCOSE 10 TABS/TUBE PO PRN (07:09)
[2021-02-06] MEDS: levoFLOXacin/D5W 750 MG/150 ML BAG IV SCH (07:31)
[2021-02-06] MEDS: ASPIRIN 81 MG ECTAB PO SCH (08:54)
[2021-02-06] MEDS: lisinopril 2.5 MG TAB PO SCH (08:55)
[2021-02-06] MEDS: ATORVASTATIN 40 MG TAB PO SCH (08:55)
[2021-02-06] MEDS: METOPROLOL SUCC 50MG EXT REL TAB PO SCH (08:55)
[2021-02-06] MEDS: DOXYCYCLINE HYCLATE 100 MG CAP PO SCH ×2 (08:55→20:29)
[2021-02-06] MEDS: INSULIN GLARGINE SOLOSTAR 100 UNITS/ML 3 ML PEN SC SCH ×2 (08:59→20:31)
[2021-02-06] MEDS: INSULIN ASPART 100 UNITS/ML VIAL SC SCH ×4 (08:59→20:30)
[2021-02-06] MEDS ORDERED: CLOPIDOGREL BISULFATE 75 MG TAB PO SCH (09:00)
[2021-02-06] MEDS ORDERED: INSULIN GLARGINE SOLOSTAR 100 UNITS/ML 3 ML PEN SC SCH (09:00)
--- NOTE | 2021-02-06 09:39 | CT Scan Report ---
CHEST CTA for PULMONARY ARTERIES CT DOSE: 583.93 mGy.cm HISTORY: Fever. Cough. Shortness of breath. TECHNIQUE: Multiaxial CT images of the chest were performed following the intravenous administration of contrast to evaluate the pulmonary arteries. Maximal intensity projection images were also obtaine d. A dose lowering technique was utilized adhering to the principles of ALARA. COMPARISON STUDY: Chest CTA 01/03/2019. FINDINGS: Small gallstone/sludge noted within the gallbladder. The visualized liver, spleen, and adre nal glands are unremarkable. There is a tiny hiatus hernia. Normal caliber esophagus. Trace bilateral pleural effusions which are similar to the prior study. No mediastinal or hilar lymphadenopathy. The heart remains enlarged. Thinning of the cardiac apex consistent with an old infarct. Normal caliber thoracic aorta with no evidence for dissection. Mild calcified plaque within the coronary arteries. N o filling defects within the pulmonary arteries to suggest a pulmonary embolus. No fractures within t he visualized osseous structures. No pneumothorax. Mild central bronchial wall thickening. Mild emphy sema. There is mild interlobular septal thickening with perihilar groundglass airspace opacities, rig ht greater than left. This favors mild asymmetric pulmonary edema. A viral pneumonia could also have a similar appearance in the appropriate clinical setting. A few patchy bibasilar densities are nonspe cific but favor atelectasis. IMPRESSION: 1. No evidence for pulmonary embolus. 2. Cardiomegaly, trace bilateral pleural effusions, mild interlobular septal thickening, and bilatera l perihilar groundglass airspace opacities. This favors mild asymmetric pulmonary edema. A viral pneu monia could also have a similar appearance in the appropriate clinical setting. 3. Cholelithiasis. ACT 112: Negative or not required by law. Electronically signed by: Edward Phoenix M.D. 02/06/2021 9:37 AM
--- NOTE | 2021-02-06 09:41 | XRay Report ---
XR chest 1V portable CLINICAL HISTORY: Shortness of breath. COMPARISON STUDY: Chest radiograph April 04, 2019. FINDINGS: There is no pneumothorax. Trace bilateral pleural effusions are noted. Cardiomegaly is unch anged. There is subtle interstitial thickening. IMPRESSION: 1. Cardiomegaly. Mild interstitial thickening. This favors pulmonary edema although an infectious pro cess could appear similar. 2. Trace bilateral pleural effusions. ACT 112: Negative or not required by law. Electronically signed by: Dawood John M.D. 02/06/2021 9:40 AM
[2021-02-06 09:52] LABS: Partial Thromboplastin Ratio 2.2; Partial Thromboplastin Time 57.7 Seconds (21.0-31.0)
--- NOTE | 2021-02-06 13:07 | Electrocardiogram Report ---
Test Reason : Blood Pressure : / mmHG Vent. Rate : 107 BPM Atrial Rate : 131 BPM P-R Int : 000 ms QRS Dur : 156 ms QT Int : 336 ms P-R-T Axes : 000 -50 108 degrees QTc Int : 448 ms Atrial fibrillation with rapid ventricular response Left axis deviation Left bundle branch block Abnormal ECG When compared with ECG of 04-APR-2019 14:36, Atrial fibrillation has replaced Sinus rhythm Confirmed by Demetrio Levine ([id number]) on 02/06/2021 1:06:41 PM Referred By: REFERRED SELF Confirmed By:Demetrio Levine
[2021-02-06] MEDS ORDERED: FUROSEMIDE INJ 20 MG/2 ML VIAL IV ONE (15:05)
--- NOTE | 2021-02-06 15:06 | Cardiology Consultation ---
Date of Consultation February 06, 2021 Assessment & Plan (1) Pneumonia: (2) Atrial fibrillation, new onset: (3) Ischemic cardiomyopathy: 80-year-old male with longstanding history of ischemic cardiomyopathy, remote LAD territory infarct, 1994, presents with recent shortness of breath, fever at home, not reproduced on vital signs while hospitalized. Has been found to be in newly recognized atrial fibrillation, duration of which is uncertain. Echocardiogram reveals LAD territory wall motion abnormality, with ejection fraction of 25%, his ejection fraction been graded as being 30 to 35% in 2020, but historically, his ejection fraction has been around 25% and I do not think his echocardiogram is consistent with a significant interval change. His chest CT and chest x-ray data makes it difficult to distinguish between CHF and pneumonia. Agree with ongoing empiric antibiotics, will proceed with furosemide 20 mg x 1 along with potassium and low-dose spironolactone, as there may have been a degree of interstitial edema on presentation, and with the IV fluids he is already received for IV antibiotics, I think the furosemide will provide him benefit. Continue prior to hospital treatment with metoprolol succinate 50 mg daily, as his rate is well controlled. His [id number] score is 7 for risk factors of CHF, HTN, age (2 points), stroke (2 points), and CAD , predicting high risk of cardioembolic stroke. Systemic anticoagulation therefore indicated. Continue unfractioned heparin for now while we sort out the optimal oral therapy for him. I have discontinued his clopidogrel with plans to continue aspirin plus Coumadin or a direct oral anticoagulant. I attempted to determine his knp-ma-leaohp cost for Eliquis 5 mg twice daily, but his outpatient pharmacy was closed today. Continue atorvastatin 80 mg, lisinopril. History of Present Illness Attending Physician: Gisela Merchant MD History of Present Illness Kiko Mckeon (Chris) is an 80-year-old male seen in cardiology consultation per the request of Dr Cui for the evaluation of newly recognized atrial fibrillation. The patient states that yesterday he was running errands, and he felt short of breath. His spouse took his temperature at home and noted measurements of 99 F and subsequently 2 measurements of 100.6 F. He subsequently presented to the emergency department, and a CT of the chest suggests pneumonia, and he was also found to be in newly recognized rate controlled atrial fibrillation. His prior to hospital treatment with metoprolol was continued. He is currently on unfractionated heparin infusion, is also receiving oral doxycycline and IV levofloxacin. During my assessment he was comfortable. Had no acute complaints. No new neurologic symptoms. The patient's primary service crew supervisor is Dr. Jolley of our practice. The patient has remote history of an LAD territory myocardial infarction which he states occurred in 1994. He has resultant ischemic cardiomyopathy, with chronic LAD territory wall motion abnormality, and severe LV systolic dysfunction. He has declined AICD placement in the past, favoring a more conservative approach. In 2019 he was admitted for strokelike symptoms and an MRI revealed right frontal lobe abnormality suggestive of acute or subacute infarcts. He was also found to have a remote infarct in the left parieto-occipital distribution. He was discharged on clopidogrel in addition to his chronic aspirin therapy, and a follow-up [facility] cardiac montir performed April, revealed no atrial fibrillation. The patient has a chronic history of a left bundle branch block. Allergies Allergy/AdvReac Type Severity Reaction Status Date / Time Penicillins Allergy Intermediate TONGUE Verified 02/06/21 02:15 SWELLING Home Medications Medication Instructions Recorded Confirmed Type atorvastatin 80 mg tablet 80 mg PO DAILY tab 11/26/18 02/06/21 History lisinopril 5 mg tablet 5 mg PO DAILY tab 11/26/18 02/06/21 History aspirin 81 mg tablet,delayed 81 mg PO DAILY 01/03/19 02/06/21 History release omega-3 360 mg-dha 144 mg-epa 216 1 cap PO BID 01/03/19 02/06/21 History mg-fish oil 1,200 mg capsule,del rel (Fish Oil) clopidogrel 75 mg tablet 75 mg PO QAM #30 tab 04/06/19 02/06/21 Rx metoprolol succinate 50 mg 50 mg PO DAILY tab 07/26/20 02/06/21 History tablet,extended release 24 hr Patient History Medical History CAD (coronary artery disease) 1994-anterior wall TX, no intervention DM type 2 (diabetes mellitus, type 2) Dyslipidemia HTN (hypertension) Ischemic cardiomyopathy Systolic CHF Surgical History (Updated 07/04/19 @ 09:46 by Koko Ozuna MD) History of appendectomy History of cataract surgery Family History Sister Multiple myeloma Brother Heart disease Social History Smoking Status: Former smoker Smoking End Date: 1994; Second Hand Exposure: No; Hx Alcohol Use: Yes Alcohol type: wine Hx Substance Use: No Preferred Language: Singaporean Communication Ability: Effective Account Analyst Required: No Beliefs That Will Affect Care: None marital status: Current Living Situation: Spouse Other Information That Helps Us Care for You: No Feels Safe at Home: Yes Safety Concerns: Feels Safe At This Time Assistive Devices: Denture - Upper Review of Systems Review of Systems: All systems reviewed & are unremarkable except as noted in HPI & below Physical Exam Constitutional: no acute distress Respiratory: normal respiratory effort, lungs clear to auscultation Cardiovascular: Rate/Rhythm: + irregularly irregular Heart Sounds: no murmur Extremities: no edema Neurologic: PERRL, EOMI, accommodation nl, no face palsy, no dysarthria Results & Data ([facility]) Vital Signs (Past 12 Hours) Vital Signs Temp Pulse Pulse Resp BP BP Pulse Ox 02/06/21 12:15 36.5 C 98 H 18 138/67 94 02/06/21 07:57 82 02/06/21 07:34 36.8 C 84 22 121/82 96 02/06/21 06:10 78 18 116/83 95 02/06/21 04:30 99 H 32 H 126/87 94 02/06/21 04:00 88 24 95 02/06/21 03:30 94 H 28 H 94 02/06/21 03:17 25 H 91 02/06/21 03:00 88 32 H 92 Laboratory Results Cardiac Enzymes 02/06/21 Range/Units 01:45 AST 14 L (15-37) U/L Troponin I < 0.015 (0-0.045) ng/ml Coagulation 02/06/21 02/06/21 Range/Units 01:45 08:46 PT 10.9 (9.0-12.0) Seconds APTT 28.6 57.7 H* (21.0-31.0) Seconds CBC 02/06/21 Range/Units 01:45 WBC 13.49 H (4.8-10.8) K/uL RBC 4.75 (4.7-6.1) M/uL Hgb 13.6 L (14.0-18.0) g/dL Hct 41.6 L (42-52) % Plt Count 240 (130-400) K/uL Neut # (Auto) 11.62 H (1.4-6.5) K/uL Lymph # (Auto) 0.85 L (1.2-3.4) K/uL [place] # (Auto) 0.93 H (0.11-0.59) K/uL Eos # (Auto) 0.04 (0-0.5) K/uL Baso # (Auto) 0.03 (0-0.2) K/uL Comprehensive Metabolic Panel 02/06/21 Range/Units 01:45 Sodium 137 (136-145) mmol/L Potassium 4.2 (3.5-5.1) mmol/L Chloride 107 (98-107) mmol/L Carbon Dioxide 27 (21-32) mmol/L BUN 20 H (7-18) mg/dl Creatinine 1.13 (0.6-1.4) mg/dl Glucose 198 H (70-99) mg/dl Calcium 8.7 (8.5-10.1) mg/dl AST 14 L (15-37) U/L ALT 27 (12-78) Alkaline Phosphatase 80 (45-117) U/L Total Protein 6.8 (6.4-8.2) gm/dl Albumin 3.3 L (3.4-5.0) gm/dl Intake and Output 02/06/21 02/06/21 02/06/21 06:59 14:59 22:59 Intake Total 532.5 / 532.5 250 / 250 Balance 532.5 / 532.5 250 / 250 Intake: IV 532.5 / 532.5 250 / 250 Magnesium Sulfate / D5w 1 gm In 32.5 / 32.5 100 / 100 100 ml @ 50 mls/hr IV Q2H [facility] Rx#:[id number] Sodium Chloride 0.9% 1000ML 500 500 / 500 ml @ 999 mls/hr IV .Q31M ONE Rx#:[id number] levoFLOXacin/D5W 750 mg In 150 150 / 150 ml @ 100 mls/hr IV PREOP [facility] Rx #:[id number] Other: Weight 74.8 kg 94.2 kg Weight Measurement Method Chair Scale Built in [facility] Patient Weight 02/07/21 06:59 Weight 94.2 kg Diagnostic Findings EKG performed 02/06/2021 and reviewed independently revealed atrial fibrillation at 107 bpm with left bundle branch block, QRS duration 156 ms, corrected QT interval 448 ms. Compared to previous dating back to March 2019, atrial fibrillation has replaced sinus rhythm. Left bundle branch block is a chronic finding (1) Pneumonia Laterality: unspecified laterality Lung location: unspecified part of lung Pneumonia type: due to unspecified organism Qualified Code(s): J18.9 - Pneumonia, unspecified organism
[2021-02-06] MEDS ORDERED: POTASSIUM CHLORIDE 10 MEQ TABCR PO STA (15:07)
--- NOTE | 2021-02-06 15:57 | Hospitalist Progress Note ---
Date of Service February 06, 2021 Assessment & Plan (1) Atrial fibrillation, new onset: Plan: 80-year-old gentleman with PMH of chronic systolic heart failure secondary to ischemic cardiomyopathy [2020 TTE with EF of 30 to 35%], CAD, HTN, HLD, CVA, DM 2 diet-controlled, past tobacco abuse presented to our ED 02/06 with complaint of junky cough symptoms associated with shortness of breath, fever and chills but no chest pain. Patient completed COVID-19 vaccination. Tested negative for Covid in the ED. Patient noted to be in A. fib in the ED. Is being managed for the following: #. New onset A. fib with RVR #. CAD #. Chronic systolic heart failure secondary to ischemic cardiomyopathy (EF 30 to 35%, TTE 2019) - euvolemic clinically. Patient noted to be in A. fib while in ED. Likely secondary to sepsis on the background of advanced age Admitting EKG: A. fib with RVR with rate of 107 bpm, left axis deviation, LBBB. Admitting echo: Mild concentric LVH with EF of 25%. Mild dilatation of left atrium. Anterior wall akinesis/septal akinesis/apical akinesis noted. Admitting TSH WNL, admitting magnesium found to be low at 1.6, repleted. Admitting troponin x1 -. No complaint of chest per patient Cardiology consulted: Agrees with heparin drip, plan to transition him to oral. Plavix has been discontinued at this point. Continue with aspirin for now. Currently rate controlled. Continue with home medication. Continue with heparin drip. Continue telemetry monitoring. #. Atypical pneumonia #. Sepsis - elevated WBC, elevated heart rate, atypical pneumonia noted at presentation. Patient presented with 1 day of cough with yellow sputum associated with fever, chills and shortness of breath Levaquin given at the ER for sepsis. Patient reporting improvement of his cough with yellow mucus production, patient has been afebrile Continue with doxycycline 02/06. #. Other chronic medical conditions: HTN, HLD, history of CVA, DM 2 diet- controlled Recent A1c of 7.08 November 2020, reasonable control Resume home medication when appropriate Continue with sliding scale insulin. DVT phylaxis with IV heparin Full code Disposition: Likely discharge in next 1 day if no new issue arises. Will discharge with cardiology recommendations. (2) Pneumonia: (3) Sepsis: Admission and Anticipated Discharge Date Admission Date: February 06, 2021 Subjective Patient was standing up in the room and ready to take a stroll in the hallway when I reached to the room for examination. He was on room air, running heparin drip. No new acute events overnight. Patient reports his cough with yellow mucus production has been getting better. Patient is eating and moving bowels okay. Patient denies fever/headache/chills/chest pain/palpitations/shortness of breath/other review of symptoms. Also denies any pain or burning while passing urine or any acute changes in his bowel movements lately. Physical Exam Physical Exam: GENERAL: Alert and oriented x3. NAD, on RA. Patient is very ticklish on examination. HEENT: No pallor, no icterus. Pupils equal, round and reactive to light. Oral mucosa moist. NECK: No JVD, no neck masses. HEART: S1 and S2 heard. Regular rate and rhythm. No murmur, no gallop. RESPIRATORY SYSTEM: Normal AP diameter. No accessory muscle use. No wheezing, no crackles. ABDOMEN: Soft, bowel sounds present, nontender, no distention. CENTRAL NERVOUS SYSTEM: No facial droop. Speech is clear. Obeys simple commands. Moves extremities. EXTREMITIES: No edema, no erythema seen. Results & Data Results & Data ([facility]) Vital Signs (Past 12 Hours) Vital Signs Temp Pulse Pulse Resp BP BP Pulse Ox 02/06/21 15:26 36.8 C 78 17 122/76 93 02/06/21 12:15 36.5 C 98 H 18 138/67 94 02/06/21 07:57 82 02/06/21 07:34 36.8 C 84 22 121/82 96 02/06/21 06:10 78 18 116/83 95 02/06/21 04:30 99 H 32 H 126/87 94 02/06/21 04:00 88 24 95 (1) Pneumonia Laterality: unspecified laterality Lung location: unspecified part of lung Pneumonia type: due to unspecified organism Qualified Code(s): J18.9 - Pneumonia, unspecified organism
[2021-02-06] MEDS: SPIRONOLACTONE 12.5 MG TAB PO SCH (17:08)
[2021-02-07] MEDS: HEPARIN SODIUM/DEXTROSE 25,000 UNITS/500 ML BAG IV SCH (00:34)
[2021-02-07] MEDS: levoFLOXacin/D5W 750 MG/150 ML BAG IV SCH (07:20)
[2021-02-07] MEDS: INSULIN ASPART 100 UNITS/ML VIAL SC SCH ×2 (08:01→12:34)
[2021-02-07] MEDS: METOPROLOL SUCC 50MG EXT REL TAB PO SCH (08:02)
[2021-02-07] MEDS: ASPIRIN 81 MG ECTAB PO SCH (08:02)
[2021-02-07] MEDS: lisinopril 2.5 MG TAB PO SCH (08:02)
[2021-02-07] MEDS: ATORVASTATIN 40 MG TAB PO SCH (08:02)
[2021-02-07] MEDS: DOXYCYCLINE HYCLATE 100 MG CAP PO SCH (08:02)
[2021-02-07] MEDS: SPIRONOLACTONE 12.5 MG TAB PO SCH (08:02)
[2021-02-07] MEDS: INSULIN GLARGINE SOLOSTAR 100 UNITS/ML 3 ML PEN SC SCH (08:03)
[2021-02-07 10:10] LABS: Basophils # (auto) 0.03 K/uL (0-0.2); Basophils % (auto) 0.5 %; Eosinophils # (auto) 0.19 K/uL (0-0.5); Hematocrit (blood only) 40.5 % (42-52); Hemoglobin 13.3 g/dL (14.0-18.0); Immature Granulocytes # (auto) 0.01 K/uL (0.00-0.02); Immature Granulocytes % (auto) 0.2 %; Lymphocytes # (auto) 1.39 K/uL (1.2-3.4); Lymphocytes % (auto) 21.8 %; Mean Corpuscular Hemoglobin 28.5 pg (25-34); Mean Corpuscular Hgb Conc 32.8 g/dL (32-36); Mean Corpuscular Volume 86.9 fL (80-100); Mean Platelet Volume 9.8 fL (7.4-10.4); Monocytes # (auto) 0.64 K/uL (0.11-0.59); Neutrophils # (auto) 4.13 K/uL (1.4-6.5); Neutrophils % (auto) 64.5 %; Platelet Count 213 K/uL (130-400); RDW Coefficient of Variation 13.6 % (11.5-14.5); RDW Standard Deviation 43.4 fL (36.4-46.3); Red Blood Count 4.66 M/uL (4.7-6.1); White Blood Count 6.39 K/uL (4.8-10.8)
[2021-02-07 10:32] LABS: BUN Creatinine Ratio 19.1 (10-20); Calcium 8.8 mg/dl (8.5-10.1); Creatinine Clr Calc Pharmacy 57.5 ml/min; Est GFR (Non-African American) 60.4 ml/min; Magnesium 2.1 mg/dl (1.8-2.4)
[2021-02-07 10:33] LABS: Phosphorus 1.8 mg/dl (2.5-4.9)
[2021-02-07 10:38] LABS: INR 1.2 (0.9-1.1); Prothrombin Time 11.8 Seconds (9.0-12.0)
--- NOTE | 2021-02-07 11:17 | Cardiology Progress Note ---
Date of Service February 07, 2021 Assessment & Plan (1) Pneumonia: (2) Atrial fibrillation, new onset: (3) Ischemic cardiomyopathy: Plan: 80-year-old male with longstanding history of ischemic cardiomyopathy, remote LAD territory infarct, 1994, presents with recent shortness of breath, fever at home, not reproduced on vital signs while hospitalized. Has been found to be in newly recognized atrial fibrillation, duration of which is uncertain. Echocardiogram reveals LAD territory wall motion abnormality, with ejection fraction of 25%, his ejection fraction been graded as being 30 to 35% in 2020, but historically, his ejection fraction has been around 25% and I do not think his echocardiogram is consistent with a significant interval change. As noted, his CXR and CT changes are difficult to distinguish between pneumonia and CHF. Continue prior to hospital treatment with metoprolol succinate 50 mg daily, as his rate is well controlled. Pulse oximetry 95% on room air this am. Noted significant diuretic effect with lasix 20 mg IV x 1. His [id number] score is 7 for risk factors of CHF, HTN, age (2 points), stroke (2 points), and CAD , predicting high risk of cardioembolic stroke. Systemic anticoagulation therefore indicated. Continue unfractioned heparin for now while we sort out the optimal oral therapy for him. I called his outpatient pharmacy, his out of pocket cost for Eiquis would be $106 per month. Patient prefers as few trips to the doctor / lab as possible. He favors paying for the Eliquis rather than coumadin. Proceed with rate control and anticoagulation strategy for AF. * Continue atorvastatin 80 mg, lisinopril. * DC heparin infusion now, and start first dose of Eliquis 12 pm. * Dose #2 of Eliquis at home in am tomorrow and start Q12 hour schedule. * discharge on new furosemide 20 mg daily and spironolactone 25 mg , 1/2 tablet daily. * Continue ASA 81 mg daily for CAD. * clopidogrel discontinued in favor of Eliquis. * DC'd IV Levaquin. * Consider completing a 1 week course of doxycycline Will need outpatient cardiology follow up within a few weeks, follows with Dr Jolley. Admission and Anticipated Discharge Date Admission Date: February 06, 2021 Subjective Pt seen in follow up. Remains in AF with ventricular rates in the 70-80s. Stable findings of LBBB on EKG. Pt denies SOB , afebrile. He has been walking multiple labs in hallway. Eager for discharge. Review of Systems Review of Systems: All systems reviewed & are unremarkable except as noted in HPI & below Physical Exam Physical Exam: Temp Pulse Resp BP Pulse Ox 36.3 C L 79 18 145/85 H 95 02/07/21 07:19 02/07/21 07:52 02/07/21 07:19 02/07/21 07:19 02/07/21 07:19 Constitutional: no acute distress Respiratory: normal respiratory effort, lungs clear to auscultation Cardiovascular: Rate/Rhythm: + irregularly irregular Heart Sounds: no murmur Extremities: no edema Neurologic: PERRL, EOMI, accommodation nl, no face palsy, no dysarthria Results & Data ([facility]) Vital Signs (Past 12 Hours) Vital Signs Temp Pulse Pulse Resp BP Pulse Ox 02/07/21 07:52 79 02/07/21 07:19 36.3 C L 95 H 18 145/85 H 95 02/07/21 03:35 36.1 C L 69 14 133/86 95 02/07/21 01:56 82 Laboratory Results Coagulation 02/07/21 Range/Units 09:53 PT 11.8 (9.0-12.0) Seconds APTT (21.0-31.0) Seconds CBC 02/07/21 Range/Units 09:53 WBC 6.39 (4.8-10.8) K/uL RBC 4.66 L (4.7-6.1) M/uL Hgb 13.3 L (14.0-18.0) g/dL Hct 40.5 L (42-52) % Plt Count 213 (130-400) K/uL Neut # (Auto) 4.13 (1.4-6.5) K/uL Lymph # (Auto) 1.39 (1.2-3.4) K/uL [place] # (Auto) 0.64 H (0.11-0.59) K/uL Eos # (Auto) 0.19 (0-0.5) K/uL Baso # (Auto) 0.03 (0-0.2) K/uL Comprehensive Metabolic Panel 02/07/21 Range/Units 09:53 Sodium 138 (136-145) mmol/L Potassium 4.0 (3.5-5.1) mmol/L Chloride 108 H (98-107) mmol/L Carbon Dioxide 22 (21-32) mmol/L BUN 22 H (7-18) mg/dl Creatinine 1.14 (0.6-1.4) mg/dl Glucose 162 H (70-99) mg/dl Calcium 8.8 (8.5-10.1) mg/dl Intake and Output 02/06/21 02/07/21 02/07/21 22:59 06:59 14:59 Intake Total 484.9 / 734.9 319 / 319 Balance 484.9 / 734.9 319 / 319 Intake: IV 484.9 / 734.9 319 / 319 Heparin Sodium/Dextrose 25,000 484.9 / 484.9 169 / 169 units In 500 ml @ 1,300 UNITS/ HR 26 mls/hr IV .[id number] [facility] Rx #:[id number] levoFLOXacin/D5W 750 mg In 150 150 / 150 ml @ 100 mls/hr IV PREOP [facility] Rx #:[id number] (1) Pneumonia Laterality: unspecified laterality Lung location: unspecified part of lung Pneumonia type: due to unspecified organism Qualified Code(s): J18.9 - Pneumonia, unspecified organism
[2021-02-07 11:30] LABS: Partial Thromboplastin Ratio > 5.3
[2021-02-07 11:54] LABS: Partial Thromboplastin Time > 139.0 Seconds (21.0-31.0)
[2021-02-07] MEDS ORDERED: FUROSEMIDE 20 MG TAB PO SCH (12:00)
[2021-02-07] MEDS ORDERED: APIXABAN 5 MG TABLET PO ONE (12:30)
[2021-02-07] MEDS ORDERED: SODIUM PHOSPHATE 3 MMOL/1 ML INFUSION IV STA (12:52)
[2021-02-07] MEDS ORDERED: SODIUM PHOSPHATE 30 MMOL in SODIUM CHLORIDE 0.9% 500 ML IV ONE (13:15)
--- NOTE | 2021-02-07 13:21 | Communication Note ---
Date of Service: February 07, 2021 Code 44 attestation: He is an 80-year-old male with significant past medical history of atrial fibrillation, new onset with ischemic cardiomyopathy and has pneumonia. He has been treated appropriately and is being seen by the animal biologist and as of today he has been feeling much better to discharge home today. By CMS guidelines, a determination that the admission or continued stay is not medically necessary has been made by a member of the UR committee and a physician for this hospital stay, therefore a Code 44 will be completed and the Inpatient admission will be changed to outpatient. Dr Oneal Norris Member UR Committee
[2021-02-07] MEDS ORDERED: POT PHOSPHATE MONOBASIC W/ SOD TAB PO SCH (14:00)
--- NOTE | 2021-02-07 15:58 | Electrocardiogram Report ---
Test Reason : Blood Pressure : / mmHG Vent. Rate : 087 BPM Atrial Rate : 110 BPM P-R Int : 000 ms QRS Dur : 170 ms QT Int : 408 ms P-R-T Axes : 000 236 072 degrees QTc Int : 490 ms Suspect arm lead reversal, interpretation assumes no reversal Atrial fibrillation with premature ventricular or aberrantly conducted complexes Right superior axis deviation Left bundle branch block Inferior infarct , age undetermined Abnormal ECG When compared with ECG of 06-FEB-2021 01:51, Questionable change in QRS axis T wave inversion no longer evident in Lateral leads Confirmed by Demetrio Levine ([id number]) on 02/07/2021 3:58:24 PM Referred By: REFERRED SELF Confirmed By:Demetrio Levine
--- NOTE | 2021-02-07 17:41 | Discharge Summary ---
Date of Service February 07, 2021 Admission HPI Per Admitting Provider History obtained from patient and records. Medical history significant for chronic systolic heart failure secondary to ischemic cardiomyopathy (EF 30 to 35%, TTE 2019), CAD, hypertension, hyperlipidemia, history of CVA, DM2 diet-controlled, past tobacco abuse. 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 No atrial fibrillation on telemetry during confinement. Patient discharged on aspirin and Plavix. Outpatient Zio patch was was negative for A. fib Yesterday, patient noted junky cough symptoms with shortness of breath, fever, chills. No chest pain. Not sure about sick contacts. Patient completed COVID-19 vaccination. Patient consulted ER for worsening discomfort. Patient noted to be in A. fib at the emergency room. Levaquin given at the ER for sepsis. 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 fib Atypical pneumonia Discharge Exam GENERAL: Alert and oriented x3. NAD, on RA. Patient is very ticklish on examina tion. HEENT: No pallor, no icterus. Pupils equal, round and reactive to light. Oral mucosa moist. NECK: No JVD, no neck masses. HEART: S1 and S2 heard. Regular rate and rhythm. No murmur, no gallop. RESPIRATORY SYSTEM: Normal AP diameter. No accessory muscle use. No wheezing, no crackles. ABDOMEN: Soft, bowel sounds present, nontender, no distention. CENTRAL NERVOUS SYSTEM: No facial droop. Speech is clear. Obeys simple commands. Moves extremities. EXTREMITIES: No edema, no erythema seen. Discharge Data Allergies Allergy/AdvReac Type Severity Reaction Status Date / Time Penicillins Allergy Intermediate TONGUE Verified 02/06/21 02:15 SWELLING Consultations 02/06/21 07:09 Consult Cardiology Routine Ordered Studies 02/06/21 02:02 CT angio chest PE protocol Urgent Hospital Course (1) Atrial fibrillation, new onset: 80-year-old gentleman with PMH of chronic systolic heart failure secondary to ischemic cardiomyopathy [2019 TTE with EF of 30 to 35%], CAD, HTN, HLD, CVA, DM 2 diet-controlled, past tobacco abuse presented to our ED 02/06 with complaint of junky cough symptoms associated with shortness of breath, fever and chills but no chest pain. Patient completed COVID-19 vaccination. Tested negative for Covid in the ED. Patient noted to be in A. fib in the ED. He was managed for the following: #. New onset A. fib with RVR #. CAD #. Chronic systolic heart failure secondary to ischemic cardiomyopathy (EF 30 to 35%, TTE 2019) - euvolemic clinically. Patient noted to be in A. fib while in ED. Likely secondary to sepsis on the background of advanced age Admitting EKG: A. fib with RVR with rate of 107 bpm, left axis deviation, LBBB. Admitting echo: Mild concentric LVH with EF of 25%. Mild dilatation of left atrium. Anterior wall akinesis/septal akinesis/apical akinesis noted. Admitting TSH WNL, admitting magnesium found to be low at 1.6, repleted. Admitting troponin x1 -. No complaint of chest pain per patient Cardiology evaluated the patient while inpatient, started him on Eliquis, discontinued Plavix, continue with aspirin, Lasix and spironolactone added. #. Atypical pneumonia #. Sepsis - elevated WBC, elevated heart rate, atypical pneumonia noted at presentation. Patient presented with 1 day of cough with yellow sputum associated with fever, chills and shortness of breath Levaquin given at the ER for sepsis. Patient reporting improvement of his cough with yellow mucus production, patient has been afebrile Continue with doxycycline 02/06 for total of 7 days. #. Other chronic medical conditions: HTN, HLD, history of CVA, DM 2 diet- controlled Recent A1c of 7.08 November 2020, reasonable control Resume home medication when appropriate Continue with sliding scale insulin. DVT phylaxis with IV heparin Full code Patient discharged home with following instruction at the time of discharge: Follow-up with your primary care physician within a week time. You have been started on Eliquis for your new diagnosis of A. fib, your Plavix has been stopped. Your first dose of Eliquis will be today at 12 PM on the day of discharge and then the second dose at home in the morning tomorrow and then start every 12 hours schedule. He will continue with aspirin and new medications Lasix and spironolactone has been added. Take medications as prescribed. Follow-up with cardiology within a few weeks. Get BMP done in 1 week and have the results forwarded to your primary care physician. (2) Pneumonia: (3) Sepsis: Total Time Total Time Spent Total Time Spent (In Minutes): 40 Discharge Plan Discharge Items Patient Disposition: Home - Self-Care Reason For Visit: NEW ONSET AF, SEPSIS Discharge Diagnosis: New onset A. fib Atypical pneumonia Activity: Resume your previous activity Non-emergency contact: Primary Care Provider Call non-emergency contact if: you have any medication questions, your symptoms worsen and your temperature is above 101 Follow-up/Referrals: Adam Siddiqi MD [Primary Care Provider] - (Date & Time 02/11/2021 12:00 PM Provider Adam Siddiqi MD Department General Internal Medicine [facility] ) Diet: Carb Consistent or DM2 and Heart Healthy Addtl Attending Provider Instructions: Follow-up with your primary care physician within a week time. You have been started on Eliquis for your new diagnosis of A. fib, your Plavix has been stopped. Your first dose of Eliquis will be today at 12 PM on the day of discharge and then the second dose at home in the morning tomorrow and then start every 12 hours schedule. He will continue with aspirin and new medications Lasix and spironolactone has been added. Take medications as prescribed. Follow-up with cardiology within a few weeks. Get BMP done in 1 week and have the results forwarded to your primary care physician. Pending Studies at Discharge: Yes (Admitting blood culture final results.) Stand-Alone Forms: My [facility] [employer], Smoking Cessation Medications and DC Order Prescriptions: New Eliquis 5 mg Tablet 5 mg PO BID Qty: 60 RF: 0 doxycycline hyclate 100 mg Capsule 100 mg PO BID 5 Days Qty: 11 RF: 0 lisinopril 2.5 mg Tablet 2.5 mg PO DAILY Qty: 30 RF: 0 spironolactone 25 mg Tablet 12.5 mg PO DAILY Qty: 15 RF: 0 furosemide 20 mg Tablet 20 mg PO QAM Qty: 30 RF: 0 Continued atorvastatin 80 mg tablet 80 mg PO DAILY RF: 0 aspirin 81 mg Tablet,Delayed Release (Dr/Ec) 81 mg PO DAILY RF: 0 Fish Oil 360 mg-144 mg- 216 mg-1,200 mg Capsule,Delayed Release(Dr/Ec) 1 cap PO BID RF: 0 metoprolol succinate 50 mg tablet extended release 24 hr 50 mg PO DAILY RF: 0 Discontinued lisinopril 5 mg tablet 5 mg PO DAILY RF: 0 clopidogrel 75 mg Tablet 75 mg PO QAM Qty: 30 RF: 0 Discharge Orders: Discharge Order (Routine); Ordered 02/07/21 Ordered By: Gisela Merchant Admission Data Admit Date/Time: 02/06/21 05:28 Attending Provider: Gisela Merchant Admit Provider: Evelio Cui Primary Care Provider: Adam Siddiqi Other Providers: Neo Medina ; Sergio Rose ; Percy Turner ; Ernie Justice ; Zbigniew Jolley ; Mian Fierro ; Abimbola Faust ; Moraima Rivera ; Neha Whittaker ; Jaime Newton Other Interventions: Discharge Summary Assessment (RN) Last Done: 02/07/21 13:22
[2021-02-07 18:22] LABS: SARS CoV2 RNA(COVID-19) InHosp NEGATIVE (Negative)
[2021-02-08] MEDS ORDERED: APIXABAN 5 MG TABLET PO SCH (09:00)
== END 2021-02-07 14:13 | disposition home or self-care (01) ==
LOC: ED 00:41 → 2S 05:28 → INTOOBSV 05:28 → 2S 06:10

== ENCOUNTER 2023-04-02 23:40 | Inpatient (IN) ==
[2023-04-03] MEDS ORDERED: KETOROLAC 30 MG/ML VIAL IV ONE (01:11)
[2023-04-03] MEDS ORDERED: SODIUM CHLORIDE 0.9% 500 ML IV ONE (01:19)
--- NOTE | 2023-04-03 01:19 | Emergency Department Note ---
Impression & Plan Septic arthritis of knee, left Admit to the [facility] ED Provider Note NAME: NOLBERTO WINTERS AGE: 82 SEX: Male INFORMANT: Patient ED PROVIDER(S): Zee Gonzalez DO CHIEF COMPLAINT: Left knee pain PLAN: Disposition: Admit to the [facility] MEDICAL DECISION MAKING: This is an 82-year-old male patient who presents to the emergency department with left knee pain. 2 weeks ago, the patient had some discomfort in his left hip which lasted for approximately 1 week but then subsided on its own. Over the past 3 days, the patient has had increasing left knee pain to the point now that he has difficulty standing and walking Laboratory studies revealed significant leukocytosis with a white blood cell count of 16.9. C-reactive protein was elevated at 20. Sed rate was elevated at 42. The left knee is significantly edematous and exquisitely tender with any touch or range of motion. The patient is diabetic and on Eliquis for atrial fibrillation. X-ray of the left knee revealed a significant joint effusion. A septic protocol was performed. Lower extremity duplex was negative for DVT. Patient's left knee was tapped and produced significant amount of pus from the joint effusion. Patient was medicated with IV vancomycin. Lyme testing was added and was negative. Patient was medicated with Toradol which gave the patient significant relief of his discomfort As did the joint tap itself. The patient appeared quite dehydrated on physical exam and was given an IV fluid bolus. Results of the Gram stain from the fluid obtained from the joint tab revealed 88,900 white blood cells. I discussed the case with the [facility] and they will evaluate for further inpatient care. 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 Vital Signs: reviewed and unremarkable Additional History obtained from: His who is at the bedside Chronic Medical/Social Conditions affecting care: Atrial fibrillation-on Eliquis; diabetes Outside medical records reviewed: I did review records from the [employer] system to include outpatient primary care records from December 22, 2022 as the patient had low ferritin levels at that time along with elevated white blood cell count Differential Diagnosis: Septic joint, septic bursitis, joint effusion, occult fracture, anemia Diagnostics, independently interpreted by me: ECG: A-fib with RVR at a rate of 101 with a left bundle branch block. This appears to be unchanged from previous ECGs Cardiac Monitoring: A-fib with RVR at 105 Imaging studies: Left knee x-ray: Significant joint effusion and arthritic changes HPI: 82 year old Male arrives for evaluation of left knee pain. Patient explains that 2 weeks ago he developed some unusual left hip pain but made it somewhat difficult for him to walk. This lasted for approximately 1 week but then subsided. He then developed some significant left knee pain and swelling over the past 3 days that has become unbearable. He denies any specific injury to that knee. explains that the patient has had a very decreased appetite. In fact, she describes him as no intake over the past 36 hours. PAST MEDICAL HISTORY: See Below, PAST SURGICAL HISTORY: See Below, SOCIAL HISTORY: See Below, HOME MEDICATIONS: See list ALLERGIES: See list VITALS: See Below PHYSICAL EXAMINATION: HEENT: Head - normocephalic and atraumatic. Pupils are equal, round, and reactive to light. Extraocular eye muscles are intact, and sclera are anicteric. Nose - moist nasal mucosa without discharge. Mouth - moist buccal mucosa. Oropharynx is nonerythematous and there is no tonsillar exudate or edema noted. Neck: Supple; no JVD or cervical lymphadenopathy Heart: Regular rate and rhythm. There is a normal S1 and S2 with no murmurs, clicks, or gallops appreciated. Lungs: Clear to auscultation bilaterally with no wheezes, rales, or rhonchi. Abdomen: Soft, completely nontender, nondistended, with good bowel sounds. There are no palpable pulsatile masses or hepatosplenomegaly. There is no guarding, rigidity, or rebound noted. Extremities: Significant edema to the left knee with poor range of motion there are easily palpable peripheral pulses. Skin: warm and extremely dry dry with poor turgor and no rashes. Emergency department treatment: monitor technician: IV normal saline bolus, IV Toradol, IV vancomycin Emergency department course: The patient was evaluated in room C12. A complete history and physical was performed. Laboratory studies were drawn as above and an IV lock was initiated. Patient was bolused with IV normal saline solution as he appeared dehydrated. He was given a dose of IV Toradol for pain. X-ray was obtained of the left knee. He went for ultrasound of the left lower extremity to rule out DVT. Left knee was tapped and revealed kati pus. At that point, the patient was started on IV vancomycin. I discussed the case with the [facility] Hospitalist and they will evaluate for further inpatient care. Past Med/Surg History Medical History BPH with obstruction/lower urinary tract symptoms Degenerative disc disease Arthritis History of pyloric stenosis as a child Diabetes mellitus, type 2 NO MEDS History of skin cancer Transient ischemic attack (TIA) AROUND 2019? *NO PROBLEMS FROM EVENT HTN (hypertension) Systolic CHF FOLLOWS DR. LR>PT UNSURE OF CARDIAC HX Ischemic cardiomyopathy CAD (coronary artery disease) 1994-anterior wall CA, no intervention Dyslipidemia DM type 2 (diabetes mellitus, type 2) Surgical History History of colonoscopy History of repair of pyloric stenosis History of tooth extraction History of cardiac cath 1994 History of cataract surgery RT/LEFT History of appendectomy Family History Sister Multiple myeloma Brother Heart disease Other No family history of adverse response to anesthesia Social History Smoking Status: Former smoker Smoking End Date: 1984; Second Hand Exposure: Yes ( A CHILD); Do You Dip or Chew Tobacco: No; Hx Alcohol Use: No Hx Substance Use: No Preferred Language: Pashto Communication Ability: Effective Driver Salesman Required: No Beliefs That Will Affect Care: None marital status: Current Living Situation: Spouse Other Information That Helps Us Care for You: No Feels Safe at Home: Yes Safety Concerns: Feels Safe At This Time Assistive Devices: Glasses Assistive Devices Comment: reading glasses Allergies Allergies Allergy/AdvReac Type Severity Reaction Status Date / Time Penicillins Allergy Severe TONGUE Verified 04/03/23 02:23 SWELLING amoxicillin [From Augmentin] AdvReac Unknown Vomiting Verified 04/03/23 02:23 clavulanic acid AdvReac Unknown Vomiting Verified 04/03/23 02:23 [From Augmentin] Home Meds Home Medications Medication Instructions Recorded Confirmed atorvastatin 80 mg tablet 80 mg PO QAM 11/26/18 04/03/23 aspirin 81 mg tablet,delayed 81 mg PO QAM 01/03/19 04/03/23 release metoprolol succinate 50 mg 50 mg PO QAM 07/26/20 04/03/23 tablet,extended release 24 hr lisinopril 2.5 mg tablet 2.5 mg PO QAM 05/30/21 04/03/23 spironolactone 25 mg tablet 12.5 mg PO QAM 05/30/21 04/03/23 finasteride 5 mg tablet 5 mg PO QAM 08/02/22 04/03/23 tamsulosin 0.4 mg capsule 0.4 mg PO HS 08/02/22 04/03/23 Previous Rx's Medication Instructions Recorded apixaban 5 mg tablet (Eliquis) 5 mg PO BID #60 tabs 02/07/21 furosemide 20 mg tablet 20 mg PO QAM #30 tabs 02/07/21 Results & Data (ED) Vital Signs Vital Signs - 24 hr 04/02/23 23:44 04/03/23 01:36 04/03/23 02:00 Temperature 36.6 C Temperature Source Temporal Artery Scan Pulse Rate 84 96 H Pulse Rate [Apical] 113 H Pulse Rate from SpO2 Sensor Respiratory Rate 16 22 Respiratory Effort / Characteristics Non-Labored Spontaneous Respiratory Depth Normal Blood Pressure 113/65 Blood Pressure [Left Arm] 117/76 Blood Pressure Mean 81 Blood Pressure Mean [Left Arm] 89 Blood Pressure Position Sitting Pulse Oximetry 96 94 Oxygen Delivery Method Room Air Room Air Sepsis Recent Fever Within 48 Hours No Sepsis New/Unexplained Change in Mental Status N/A Sepsis Action Taken by Nursing No Action Required 04/03/23 02:01 04/03/23 02:44 04/03/23 04:01 Temperature Temperature Source Pulse Rate 79 84 85 Pulse Rate [Apical] Pulse Rate from SpO2 Sensor 88 Respiratory Rate 30 H 28 H 22 Respiratory Effort / Characteristics Respiratory Depth Blood Pressure 106/36 L 119/80 Blood Pressure [Left Arm] Blood Pressure Mean 59 93 Blood Pressure Mean [Left Arm] Blood Pressure Position Pulse Oximetry 95 95 Oxygen Delivery Method Room Air Sepsis Recent Fever Within 48 Hours Sepsis New/Unexplained Change in Mental Status Sepsis Action Taken by Nursing 04/03/23 04:30 04/03/23 05:00 Temperature Temperature Source Pulse Rate 86 80 Pulse Rate [Apical] Pulse Rate from SpO2 Sensor Respiratory Rate 28 H 22 Respiratory Effort / Characteristics Respiratory Depth Blood Pressure 113/56 L Blood Pressure [Left Arm] Blood Pressure Mean 75 Blood Pressure Mean [Left Arm] Blood Pressure Position Pulse Oximetry 95 Oxygen Delivery Method Room Air Sepsis Recent Fever Within 48 Hours Sepsis New/Unexplained Change in Mental Status Sepsis Action Taken by Nursing Laboratory Data 04/04/23 05:19 04/04/23 05:19 Lab Results 04/03/23 04/03/23 04/03/23 Range/Units 01:25 01:26 02:22 WBC 16.95 H (4.8-10.8) K/ul RBC 4.57 L (4.70-6.10) M/uL Hgb 12.8 L (14.0-18.0) g/dl Hct 38.6 L (42.0-52.0) % MCV 84.5 (80.0-100.0) fL MCH 28.0 (25.0-34.0) pg MCHC 33.2 (32.0-36.0) g/dL RDW Std Deviation 44.5 (36.4-46.3) fL RDW Coeff of Earl 14.6 H (11.5-14.5) % Plt Count 236 (130-400) K/uL MPV 10.4 (9.4-12.4) fL Immature Gran % (Auto) 0.5 % Neut % (Auto) 87.7 % Lymph % (Auto) 2.9 % [place] % (Auto) 8.6 % Eos % (Auto) 0.1 % Baso % (Auto) 0.2 % Neut # (Auto) 14.88 H (1.40-6.50) K/uL Lymph # (Auto) 0.50 L (1.20-3.40) K/uL [place] # (Auto) 1.45 H (0.11-0.59) K/uL Eos # (Auto) 0.01 (0.00-0.50) K/uL Baso # (Auto) 0.03 (0.00-0.20) K/uL Immature Gran # (Auto) 0.08 (0.01-0.20) K/uL ESR 42 H (0-20) mm/hr APTT 36 H (21-31) Seconds PTT Ratio 1.3 Sodium 132 L (136-145) mmol/L Potassium 4.3 (3.5-5.1) mmol/L Chloride 98 (98-107) mmol/L Carbon Dioxide 25 (21-32) mmol/L Anion Gap 9 (3-11) BUN 27 H (6-23) mg/dl Creatinine 1.17 (0.6-1.4) mg/dl Est Cr Clr Drug Dosing 53.2 ml/min Est GFR ( Amer) 66.9 ml/min Est GFR (Non-Af Amer) 57.7 ml/min BUN/Creatinine Ratio 23.1 H (10-20) Glucose 217 H (70-99(Fasting)) mg/dl Osmolality 296 (280-300) mOsm/kg Lactate (0.4-2.0) mmol/L Calcium 9.4 (8.6-10.3) mg/dl Magnesium 1.6 L (1.7-2.4) mg/dl Total Bilirubin 2.2 H (0.2-1.0) mg/dl AST 14 (13-39) U/L ALT 17 (7-52) U/L Alkaline Phosphatase 73 (34-104) U/L Total Creatine Kinase (30-223) U/L Troponin I High Sens 16.8 (0-20) pg/ml C-Reactive Protein 20.00 H (0-0.5) mg/dl B-Natriuretic Peptide (0-100) pg/ml Total Protein 7.1 (6.0-8.3) gm/dl Albumin 3.8 (3.4-5.0) gm/dl Globulin 3.3 (2.5-4.0) gm/dl Albumin/Globulin Ratio 1.2 (0.9-2) Procalcitonin 0.29 (0-0.5) ng/ml TSH 1.235 (0.300-4.500) uIu/ml Urine Color [place] Urine Appearance Cloudy A (Clear) Urine pH 5.0 (4.5-7.5) Ur Specific [place] 1.025 (1.000-1.030) Urine Protein Trace H (Negative) Urine Glucose (UA) Negative (Negative) Urine Ketones Trace H (Negative) Urine Blood Negative (Negative) Urine Nitrite Negative (Negative) Urine Bilirubin Negative (Negative) Urine Urobilinogen Negative (Negative) Ur Leukocyte Esterase Negative (Negative) Urine WBC (Auto) 1-5 (0-5) /hpf Urine RBC (Auto) 0-4 (0-4) /hpf U Hyaline Cast (Auto) 0 (0-5) /lpf U Epithel Cells (Auto) 20-30 H (0-5) /lpf Urine Bacteria (Auto) 1+ H (Negative) Urine Mucus Present A (None Prsent) Urine Osmolality 763 (500-800) mOsm/kg Ur Random Sodium 24 mmol/L Fluid Comment Synovial Source Synovial Color Synovial Appearance Synovial WBC (Auto) (0-200) /ul Synovial RBC (Auto) /uL Synovial Polynuclear % % Synovial Mononuclear % % Synovial Crystals Lyme Disease IgG Ab Negative (Negative) Lyme Disease IgM Ab Negative (Negative) 04/03/23 04/03/23 04/03/23 Range/Units 04:00 04:03 04:18 WBC (4.8-10.8) K/ul RBC (4.70-6.10) M/uL Hgb (14.0-18.0) g/dl Hct (42.0-52.0) % MCV (80.0-100.0) fL MCH (25.0-34.0) pg MCHC (32.0-36.0) g/dL RDW Std Deviation (36.4-46.3) fL RDW Coeff of Earl (11.5-14.5) % Plt Count (130-400) K/uL MPV (9.4-12.4) fL Immature Gran % (Auto) % Neut % (Auto) % Lymph % (Auto) % [place] % (Auto) % Eos % (Auto) % Baso % (Auto) % Neut # (Auto) (1.40-6.50) K/uL Lymph # (Auto) (1.20-3.40) K/uL [place] # (Auto) (0.11-0.59) K/uL Eos # (Auto) (0.00-0.50) K/uL Baso # (Auto) (0.00-0.20) K/uL Immature Gran # (Auto) (0.01-0.20) K/uL ESR (0-20) mm/hr APTT (21-31) Seconds PTT Ratio Sodium (136-145) mmol/L Potassium (3.5-5.1) mmol/L Chloride (98-107) mmol/L Carbon Dioxide (21-32) mmol/L Anion Gap (3-11) BUN (6-23) mg/dl Creatinine (0.6-1.4) mg/dl Est Cr Clr Drug Dosing ml/min Est GFR ( Amer) ml/min Est GFR (Non-Af Amer) ml/min BUN/Creatinine Ratio (10-20) Glucose (70-99(Fasting)) mg/dl Osmolality (280-300) mOsm/kg Lactate 1.8 (0.4-2.0) mmol/L Calcium (8.6-10.3) mg/dl Magnesium (1.7-2.4) mg/dl Total Bilirubin (0.2-1.0) mg/dl AST (13-39) U/L ALT (7-52) U/L Alkaline Phosphatase (34-104) U/L Total Creatine Kinase (30-223) U/L Troponin I High Sens (0-20) pg/ml C-Reactive Protein (0-0.5) mg/dl B-Natriuretic Peptide 482 H (0-100) pg/ml Total Protein (6.0-8.3) gm/dl Albumin (3.4-5.0) gm/dl Globulin (2.5-4.0) gm/dl Albumin/Globulin Ratio (0.9-2) Procalcitonin (0-0.5) ng/ml TSH (0.300-4.500) uIu/ml Urine Color Urine Appearance (Clear) Urine pH (4.5-7.5) Ur Specific [place] (1.000-1.030) Urine Protein (Negative) Urine Glucose (UA) (Negative) Urine Ketones (Negative) Urine Blood (Negative) Urine Nitrite (Negative) Urine Bilirubin (Negative) Urine Urobilinogen (Negative) Ur Leukocyte Esterase (Negative) Urine WBC (Auto) (0-5) /hpf Urine RBC (Auto) (0-4) /hpf U Hyaline Cast (Auto) (0-5) /lpf U Epithel Cells (Auto) (0-5) /lpf Urine Bacteria (Auto) (Negative) Urine Mucus (None Prsent) Urine Osmolality (500-800) mOsm/kg Ur Random Sodium mmol/L Fluid Comment Synovial Source Left Knee Synovial Color Yellow Synovial Appearance Turbid Synovial WBC (Auto) 24989 H (0-200) /ul Synovial RBC (Auto) 9000 /uL Synovial Polynuclear % 93.6 % Synovial Mononuclear % 6.4 % Synovial Crystals Lyme Disease IgG Ab (Negative) Lyme Disease IgM Ab (Negative) 04/03/23 Range/Units 05:08 WBC (4.8-10.8) K/ul RBC (4.70-6.10) M/uL Hgb (14.0-18.0) g/dl Hct (42.0-52.0) % MCV (80.0-100.0) fL MCH (25.0-34.0) pg MCHC (32.0-36.0) g/dL RDW Std Deviation (36.4-46.3) fL RDW Coeff of Earl (11.5-14.5) % Plt Count (130-400) K/uL MPV (9.4-12.4) fL Immature Gran % (Auto) % Neut % (Auto) % Lymph % (Auto) % [place] % (Auto) % Eos % (Auto) % Baso % (Auto) % Neut # (Auto) (1.40-6.50) K/uL Lymph # (Auto) (1.20-3.40) K/uL [place] # (Auto) (0.11-0.59) K/uL Eos # (Auto) (0.00-0.50) K/uL Baso # (Auto) (0.00-0.20) K/uL Immature Gran # (Auto) (0.01-0.20) K/uL ESR (0-20) mm/hr APTT (21-31) Seconds PTT Ratio Sodium (136-145) mmol/L Potassium (3.5-5.1) mmol/L Chloride (98-107) mmol/L Carbon Dioxide (21-32) mmol/L Anion Gap (3-11) BUN (6-23) mg/dl Creatinine (0.6-1.4) mg/dl Est Cr Clr Drug Dosing ml/min Est GFR ( Amer) ml/min Est GFR (Non-Af Amer) ml/min BUN/Creatinine Ratio (10-20) Glucose (70-99(Fasting)) mg/dl Osmolality (280-300) mOsm/kg Lactate (0.4-2.0) mmol/L Calcium (8.6-10.3) mg/dl Magnesium (1.7-2.4) mg/dl Total Bilirubin (0.2-1.0) mg/dl AST (13-39) U/L ALT (7-52) U/L Alkaline Phosphatase (34-104) U/L Total Creatine Kinase 90 (30-223) U/L Troponin I High Sens (0-20) pg/ml C-Reactive Protein (0-0.5) mg/dl B-Natriuretic Peptide (0-100) pg/ml Total Protein (6.0-8.3) gm/dl Albumin (3.4-5.0) gm/dl Globulin (2.5-4.0) gm/dl Albumin/Globulin Ratio (0.9-2) Procalcitonin (0-0.5) ng/ml TSH (0.300-4.500) uIu/ml Urine Color Urine Appearance (Clear) Urine pH (4.5-7.5) Ur Specific [place] (1.000-1.030) Urine Protein (Negative) Urine Glucose (UA) (Negative) Urine Ketones (Negative) Urine Blood (Negative) Urine Nitrite (Negative) Urine Bilirubin (Negative) Urine Urobilinogen (Negative) Ur Leukocyte Esterase (Negative) Urine WBC (Auto) (0-5) /hpf Urine RBC (Auto) (0-4) /hpf U Hyaline Cast (Auto) (0-5) /lpf U Epithel Cells (Auto) (0-5) /lpf Urine Bacteria (Auto) (Negative) Urine Mucus (None Prsent) Urine Osmolality (500-800) mOsm/kg Ur Random Sodium mmol/L Fluid Comment Synovial Source Synovial Color Synovial Appearance Synovial WBC (Auto) (0-200) /ul Synovial RBC (Auto) /uL Synovial Polynuclear % % Synovial Mononuclear % % Synovial Crystals Lyme Disease IgG Ab (Negative) Lyme Disease IgM Ab (Negative) Administered Medications Apixaban (Apixaban 5 Mg Tablet) 5 mg PO BID [facility] Stop: 05/04/23 08:59 Last Admin: 04/04/23 08:16 Dose: 5 mg Documented By: JANKI Aspirin (Aspirin 81 Mg Ectab) 81 mg PO QAM ERNESTO Stop: 05/04/23 08:59 Last Admin: 04/04/23 08:16 Dose: 81 mg Documented By: JANKI Docusate Sodium (Docusate Sodium 100 Mg Cap) 100 mg PO BID [facility] Stop: 05/03/23 21:26 Last Admin: 04/04/23 08:16 Dose: 100 mg Documented By: Admin: 04/03/23 22:32 Dose: 100 mg Documented By: SHAWNA Finasteride (Finasteride 5 Mg Tab) 5 mg PO QAM [facility] Stop: 05/03/23 08:59 Last Admin: 04/04/23 08:16 Dose: 5 mg Documented By: Admin: 04/03/23 08:35 Dose: 5 mg Documented By: CHANDNI Insulin Aspart (Insulin Aspart Per Unit Charge) 0 units SC ACHS [facility] Stop: 05/03/23 06:14 Last Admin: 04/04/23 13:08 Dose: 4 units Documented By: JANKI Co-signed By: DARRIN Admin: 04/04/23 09:05 Dose: 3 units Documented By: JANKI Co-signed By: DARRIN Admin: 04/03/23 22:36 Dose: 2 units Documented By: SHAWNA Co-signed By: JYOTSNA Admin: 04/03/23 18:27 Dose: Not Given Documented By: Admin: 04/03/23 14:13 Dose: Not Given Documented By: Admin: 04/03/23 06:34 Dose: 4 units Documented By: CARMINE Co-signed By: SERGIO Insulin Glargine (Lantus Per Unit Charge) 5 units SQ DAILY [facility] Stop: 05/03/23 08:59 Last Admin: 04/04/23 09:05 Dose: 5 units Documented By: JANKI Co-signed By: DARRIN Admin: 04/03/23 08:41 Dose: 5 units Documented By: CHANDNI Co-signed By: JARROD Lisinopril (Lisinopril 2.5 Mg Tab) [facility] [place]: 05/03/23 08:59 Last Admin: 04/04/23 09:06 Dose: 2.5 mg Documented By: Admin: 04/03/23 08:35 Dose: 2.5 mg Documented By: CHANDNI Metoprolol Succinate (Metoprolol Succ 50mg Ext Rel Tab) 50 [facility] [place] [facility] [place]: 05/03/23 08:59 Last Admin: 04/04/23 09:06 Dose: 50 mg Documented By: Admin: 04/03/23 08:35 Dose: 50 mg Documented By: CHANDNI Multivitamins (Multivitamin Tab) 1 tab PO QAM [facility] Stop: 05/04/23 08:59 Last Admin: 04/04/23 08:16 Dose: 1 tab Documented By: JANKI Sennosides (Senna 8.6 Mg Tab) 17.2 mg PO [facility] Stop: 05/03/23 21:26 Last Admin: 04/03/23 22:32 Dose: 17.2 mg Documented By: SHAWNA Tamsulosin HCl (Tamsulosin Hcl 0.4 Mg Cap) 0.4 mg PO [facility] Stop: 05/03/23 20:59 Last Admin: 04/03/23 22:33 Dose: 0.4 mg Documented By: SHAWNA Discontinued Medications Bupivacaine HCl (Bupivacaine 0.5 % 5 Mg/1 Ml Mpf 30ml Vial) Confirm Administered Dose 30 ml .ROUTE .STK-MED ONE Stop: 04/03/23 18:36 Last Admin: 04/03/23 20:04 Dose: 5 ml Documented By: KAMALA Cefazolin Sodium (Cefazolin 2,000 Mg/15 Ml Iv Push) Confirm Administered Dose 2,000 mg IV .STK-MED ONE Stop: 04/03/23 18:44 Last Admin: 04/03/23 21:37 Dose: Not Given Documented By: SHAWNA Epinephrine HCl (Epinephrine Hcl Inj 1 Mg/Ml 1ml Syringe) Confirm Administered Dose 2 mg IR .STK-MED ONE Stop: 04/03/23 18:54 Last Admin: 04/03/23 20:09 Dose: 2 mg Documented By: KAMALA Sodium Chloride (Nss) 500 mls @ 999 mls/hr IV .Q31M ONE Stop: 04/03/23 01:49 Last Infusion: 04/03/23 02:11 Dose: Infused Documented By: Admin: 04/03/23 01:33 Dose: 999 mls/hr Documented By: CARMINE Vancomycin HCl 2,250 mg/ (Sodium Chloride) 545 mls @ 200 mls/hr IV NOW ONE Stop: 04/03/23 06:46 Last Infusion: 04/03/23 08:48 Dose: Infused Documented By: Admin: 04/03/23 04:29 Dose: 200 mls/hr Documented By: CARMINE Albumin Human (Albumin 25%) 25 gm in 100 mls @ 50 mls/hr IV ONE ONE Stop: 04/03/23 08:10 Last Infusion: 04/03/23 10:17 Dose: Infused Documented By: Admin: 04/03/23 08:02 Dose: 50 mls/hr Documented By: CHANDNI Daptomycin 425 mg/ Syringe 8.5 mls @ 4.25 mls/min IV Q24H ERNESTO; Protocol Stop: 05/15/23 15:59 Last Admin: 04/03/23 17:44 Dose: 4.25 mls/min Documented By: DARRIN Cefazolin Sodium (Ancef 2000mg) 2,000 mg in 15 mls @ 3.75 mls/min IV PREOP ONE; Protocol Stop: 04/03/23 18:44 Last Admin: 04/03/23 18:53 Dose: 3.75 mls/min Documented By: [id number] Sodium Chloride (Nss) 1,000 mls @ 100 mls/hr IV .Q10H ERNESTO Stop: 04/04/23 06:00 Last Infusion: 04/04/23 05:16 Dose: Infused Documented By: Admin: 04/03/23 22:29 Dose: 100 mls/hr Documented By: SHAWNA Daptomycin 500 mg/ Syringe 10 mls @ 5 mls/min IV Q24H ERNESTO; Protocol Stop: 05/15/23 09:59 Last Admin: 04/04/23 10:50 Dose: 5 mls/min Documented By: JANKI Ketorolac Tromethamine (Ketorolac 30 Mg/Ml Vial) 30 mg IV NOW ONE Stop: 04/03/23 01:12 Last Admin: 04/03/23 01:35 Dose: 30 mg Documented By: CARMINE Lidocaine HCl (Lidocaine 1% Local 20 Ml Vial) Confirm Administered Dose 1 ml .ROUTE .STK-MED ONE Stop: 04/03/23 03:56 Last Admin: 04/03/23 04:29 Dose: 1 ml Documented By: CARMINE Lidocaine HCl (Lidocaine 1% Local 20 Ml Vial) 0 ml INJ NOW ONE Stop: 04/03/23 04:10 Last Admin: 04/03/23 04:10 Dose: Not Given Documented By: CARMINE Lidocaine HCl (Lidocaine 1% Local 20 Ml Vial) Confirm Administered Dose 20 ml .ROUTE .STK-MED ONE Stop: 04/03/23 18:36 Last Admin: 04/03/23 20:05 Dose: 5 ml Documented By: KAMALA Tranexamic Acid (Tranexamic Acid / 0.7% Nacl 1000mg/100ml Bag) Confirm Administered Dose 1,000 mg IV .STK-MED ONE Stop: 04/03/23 19:07 Last Admin: 04/03/23 19:15 Dose: 1,000 mg Documented By: [id number] Discharge Plan Visit Data Chief Complaint: Knee Injury/Pain Stated Complaint: WEAKNESS, HARD TO WALK, LT KNEE EDEMA, STIFF NECK ED Provider: Zee Gonzalez Discharge Problem: Septic arthritis of knee, left Patient Disposition: Admitted As Inpatient Discharge Instructions Interventions: ED Discharge Assessment Last Done: 04/03/23 06:08 Discharge Problem: Septic arthritis of knee, left Qualifiers: Septic arthritis organism: due to unspecified organism Qualified Code(s): M00.9 - Pyogenic arthritis, unspecified
[2023-04-03 01:45] LABS: Basophils # (auto) 0.03 K/uL (0.00-0.20); Basophils % (auto) 0.2 %; Eosinophils # (auto) 0.01 K/uL (0.00-0.50); Eosinophils % (auto) 0.1 %; Hematocrit (blood only) 38.6 % (42.0-52.0); Hemoglobin 12.8 g/dl (14.0-18.0); Immature Granulocytes # (auto) 0.08 K/uL (0.01-0.20); Immature Granulocytes % (auto) 0.5 %; Lymphocytes % (auto) 2.9 %; Mean Corpuscular Hgb Conc 33.2 g/dL (32.0-36.0); Mean Corpuscular Volume 84.5 fL (80.0-100.0); Mean Platelet Volume 10.4 fL (9.4-12.4); Monocytes # (auto) 1.45 K/uL (0.11-0.59); Monocytes % (auto) 8.6 %; Neutrophils # (auto) 14.88 K/uL (1.40-6.50); Neutrophils % (auto) 87.7 %; Platelet Count 236 K/uL (130-400); RDW Coefficient of Variation 14.6 % (11.5-14.5); RDW Standard Deviation 44.5 fL (36.4-46.3); Red Blood Count 4.57 M/uL (4.70-6.10); White Blood Count 16.95 K/ul (4.8-10.8)
[2023-04-03 02:01] LABS: Albumin Globulin Ratio 1.2 (0.9-2); Albumin Level 3.8 gm/dl (3.4-5.0); BUN Creatinine Ratio 23.1 (10-20); Bilirubin,Total 2.2 mg/dl (0.2-1.0); Calcium 9.4 mg/dl (8.6-10.3); Creatinine Clr Calc Pharmacy 53.2 ml/min; Est GFR (African American) 66.9 ml/min; Est GFR (Non-African American) 57.7 ml/min; Globulin 3.3 gm/dl (2.5-4.0); Potassium 4.3 mmol/L (3.5-5.1); Total Protein 7.1 gm/dl (6.0-8.3)
[2023-04-03 02:17] LABS: Thyroid Stimulating Hormone 1.235 uIu/ml (0.300-4.500)
[2023-04-03 02:34] LABS: Appearance Urine Cloudy (Clear); Bilirubin Urine Negative (Negative); Blood Urine Negative (Negative); Color Urine Orange; Epithelial Cell Urine Auto 20-30 /lpf (0-5); Glucose Urine UA Negative (Negative); Ketones Urine Trace (Negative); Leukocyte Esterase Urine Negative (Negative); Nitrite Urine Negative (Negative); Protein Urine Trace (Negative); RBC Urine Automated 0-4 /hpf (0-4); Specific Gravity Urine 1.025 (1.000-1.030); Urobilinogen Urine Negative (Negative)
[2023-04-03 03:03] LABS: Cast Urine Automated 0 /lpf (0-5); Mucus Urine Present (None Prsent)
[2023-04-03 03:04] LABS: Bacteria Urine Automated 1+ (Negative)
--- OUTSIDE RECORDS SUMMARY | 2023-04-03 03:04 | External Medical Summary | Summary of Care ---
Author Name Unknown Organization [facility] Address [address] [place] [address] Phone [phone] Care Team Providers Care Investment Recovery Technician Name Role Phone Adam Siddiqi MD Primary Care Provider + Reason for Visit * Reason Onset Date Comments Test Results 04/02/2023 Encounter Details Date Type Department Care Team (Late st Contact Info) Description 04/02/2023 Telephone General Internal Medicine [facility] [place] [address] [place] [address] Adam Siddiqi MD [address] [place] [id number] Test Results Allergies Active Allergy Reactions Criticality Noted Date Comments Amoxicillin-Pot Clavulanate Nausea/vomiting 12/31/2018 Penicillins Other (Please comment) High 04/18/2006 "tongue gets bubbly" Last had it ampicillin 1995 documented as of this encounter (statuses as of 04/02/2023) Medications Medication Sig Dispensed Refills Start Date End Date Status ASPIRIN 81 MG PO TABSIndications:Mixed dyslipidemia one tab by mouth daily 34 0 04/18/2006 Active Acetaminophen 500 MG Oral Tablet (Tylenol)Indications: Acute left-sided low back pain without sciatica Take 2 Tablets by mouth every 8 hours as needed for Pain, Severe. 100 Tab 0 11/24/2020 Active Spironolactone 25 MG Oral Tablet (Aldactone)Indication s:HTN, goal below 140/90 Take 0.5 Tablets by mouth in the morning. 30 Tablet 11 05/02/2022 Active Furosemide 20 MG Oral Tablet (Lasix)Indications:He art failure, systolic, due to CAD (HCC) Take 1 Tablet by mouth in the morning. 90 Tablet 3 08/14/2022 Active Lisinopril 2.5 MG Oral Tablet (Prinivil)Indications :HTN, goal below 140/90 Take 1 Tablet by mouth in the morning. In the morning.. 90 Tablet 1 08/14/2022 Active Eliquis 5 MG Oral Tablet (Apixaban)Indications :New onset atrial fibrillation (HCC) TAKE ONE TABLET BY MOUTH TWICE DAILY 180 Tablet 3 09/06/2022 Active PreserVision AREDS 2+Multi Vit Oral Capsule Take by mouth. 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 90 Tablet 1 12/18/2022 Active Atorvastatin Calcium 80 MG Oral Tablet (Lipitor) Take 1 Tablet by mouth in the morning. In the morning.. 90 Tablet 0 12/18/2022 Active Metoprolol Succinate ER 50 MG Oral Tablet Extended Release 24 Hour (toPROL XL)Indications:Old myocardial infarct,Ischemic cardiomyopathy,Heart failure, systolic, due to CAD (HCC) TAKE 1 TABLET BY MOUTH EVERY MORNING 90 Tablet 1 01/07/2023 Active ZyrTEC Allergy 10 MG Oral Capsule (Cetirizine HCl) Take 1 Capsule by mouth in the morning. 0 Active Hospital, Clinic, or Other Facility Administered Medication Ordered Dose Route Frequency Start Date End Date Status Aflibercept (Eylea) intraviteal prefilled syringe 2 mgIndications:Exudative age-related macular degeneration of right eye with active choroidal neovascularization (HCC) 2 mg IZ PRN 11/02/2022 11/02/2023 Active ROPivacaine (Naropin) inj 1.5 mgIndications:Exudative age-related macular degeneration of right eye with active choroidal neovascularization (HCC) 1.5 mg IJ PRN 11/02/2022 11/02/2023 Active documented as of this encounter (statuses as of 04/02/2023) Active Problems Problem Noted Date Diagnosed Date 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 04/18/2022 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 12/05/2021 Paroxysmal atrial fibrillation 02/14/2021 Type 2 diabetes mellitus wit h hemoglobin A1c goal of less than 8.0% 11/05/2020 Hypertensive heart disease w ith chronic systolic congestive heart failure 07/08/2018 Spinal stenosis of lumbar re gion with neurogenic claudication 04/30/2018 HNP (herniated nucleus pulposus), lumbar 019 Personal history of skin cancer 04/03/2017 Overview: 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 Overview: 1994 cath showed 70% lesion in LAD, 50-70% lesion in left circumflex, EF 40% Ischemic cardiomyopathy 01/23/2007 Overview: EF 35-40% on echo 06/2004 EF 20-25% on echo 04/2008 See scanned records dated 05/09 documented as of this encounter (statuses as of 04/02/2023) Resolved Problems Problem Noted Date Diagnosed Date Resolved Date Obesity, Class I, BMI 30.0-3 4.9 (see actual BMI) 11/03/2020 06/05/2022 Kidney disease, chronic, sta ge III (GFR 30-59 ml/min) 03/15/2015 11/14/2016 Overview: Per CKD protocol #1 Benign neoplasm of colon 01/03/2010 Overview: adenomatous polyp, repeat in 5 years Benign neoplasm of colon 12/23/200902/2017 Type 2 diabetes mellitus wit h hemoglobin A1c goal of less than 7.0% 09/20/2009 11/05/2020 Overview: ICD-10 update of inactive term Coronary atherosclerosis 05/19/2006 Overview: 70% LAD, 50-70% left circumflex, EF 40% based on cath from 1994 Echo 06/06/04 35-40% Mixed dyslipidemia 04/18/2006 9 Overview: Per Lipid Taxonomy. Actinic keratosis 04/18/2006 11/14/2016 Overview: Sees derm documented as of this encounter (statuses as of 04/02/2023) Immunizations Name Administration Dates Next Due COVID-19 mRNA, LNP-s, No Pre serve, 2-Dose Series (Pfizer) 05/11/2020,04/13/2020 Pneumococcal Conjugate Vacc, 13 Valent (Prevnar) 01/07/2015 Pneumococcal Polysaccharide PPV23 (Pneumovax) 05/12/2016 Season Influenza, Quad, PF, Adjuvanted, 65+ Yrs, IM (FLUAD) 11/18/2019 Seasonal Influenza, PF, 6 M & above, IM , (FluLaval or Fluzone) 01/31/2018 Seasonal Influenza, Quadriva lent Hd (Fluzone Hd) 01/19/2023,12/05/2021 Seasonal Influenza, Quadriva lent, No Preserve, IM 11/14/2016,01/03/2016,12/03/2014 Seasonal Influenza, Split, I IV3, With Preserve, Inj 12/23/2009 Seasonal Influenza, Trivalen t, Adjuvanted, 65+ yrs 12/23/2018 TD, Preservative Free 08/23/2009 TDAP (age 10 and older)(Boostrix) 12/03/2014 Varicella Zoster Vaccine (Adult) 12/03/2014 Zoster Vaccine Recombinant (Shingrix) 02/02/2020 ,11/25/2019 documented as of this encounter Social History Tobacco Use Types Packs/Day Years Used Date Smoking Tobacco: Former Cigarettes 15 Q uit: 03/05/1994 Smokeless Tobacco: Never Alcohol Use Standard Drinks/Week Comments Yes 0 (1 standard drink = 0.6 oz pur e alcohol) rare PHQ-2 Answer Date Recorded PHQ Adult Total Score 0 04/18/2022 Hunger Vital Sign Answer Date Recorded Within the past 12 months, y ou worried that your food would run out before you got the money to buy more. Never true 06/06/19 23 Within the past 12 months, t he food you bought just didn't last and you didn't have money to get more. Never true 06/05/2022 Sex and Gender Information Value Date Recorded Sex Assigned at Male 06/20/2018 9:42 AM EDT Gender Identity Male 06/20/2018 9:42 AM EDT Sexual Orientation Straight 06/20/2018 9: 42 AM EDT Job Start Date Occupation Industry Not on file Not on file Not on file documented as of this encounter Miscellaneous Notes * Telephone Encounter - Trinh Neville LPN - 04/02/2023 1:38 PM EST Patient aware and verbalized understanding Trinh Neville LPN * Telephone Encounter - Trinh Neville LPN - 04/02/2023 1:35 PM EST ----- Message from Adam Siddiqi MD sent at 04/01/2023 10:03 AM EST ----- 1. Ferritin high, but stable, would re-check 3 months 2. Iron stores better 3. Hgb improving 4. Wbc borderline high, will recheck 3 months to trend, monitor for infection (cough, rash, urine, etc) documented in this encounter Plan of Treatment Upcoming Encounters Date Type Department Care Team (Late st Contact Info) Description 05/15/2023 8:45 AM EDT Office Visit Ophthalmology, [facility] [address] [place] [address] Gregor Solorzano DO [address] [place] [address] 07/03/2023 1:00 PM EDT Office Visit General Internal Medicine [facility] [address] [facility] [address] Adam Siddiqi MD [address] [place] [address] 09/03/2023 8:00 AM EDT Office Visit Cardiology, [facility] [address] [place] [address] Stephanie Gallo PA-C [address] [place] [address] Health Maintenance Due Date Last Done Comments Hepatitis B (1 of 3 - Risk 3-dose series) 2000 COVID-19 Vaccine ( - season) 2022 05/11/2020, 04/13/2020 Depression Screening 04/18/2023 04/18/2022 GFR 06/06/2023 06/05/2022, 03/05, 11/28/2021, Additional history exists HbA1c 06/20/2023 12/19/2022, 04/0 05/2022, 11/28/2021, Additional history exists Diabetic Eye Exam 09/12/2023 09/11/2022, , 09/11/2022, Additional history exists Albumin/Creatinine Ratio 12/20/2023 023, 11/28/2021, 11/04/2020, Additional history exists Diabetic Foot Exam 12/23/2023 12/22/2022, 1 , 11/03/2020, Additional history exists DTaP,Tdap,and Td Vaccines (2 - Td or Tdap) 12/03/2024 12/03/2014, 08/23/2009 COLONOSCOPY-EVERY 5 YRS AGES 18-100 06/02/2026 06/02/2021, 07/07/2015, 01/17/2010 Pneumococcal Vaccine: 65+ Years Completed 05/12/2016, 01/07/2015 Zoster Vaccines Completed 02/02/2020, 11/04, 12/03/2014 Influenza Vaccine (FLU shot) Completed , 12/05/2021, 11/18/2019, Additional history exists GARDASIL-HPV IMMUNIZATION SERIES Aged Out No longer eligible based on patient's age to complete this topic MENINGOCOCCAL (MENACTRA/MENVEO) Aged Out No longer eligible based on patient's age to complete this topic documented as of this encounter Medical Devices Implanted Type Area Vice President Global Advertising Sales Device Identifier Shelf Expiration Date Model / Serial / Lot Lens 21.0 Mx60 - [id number] - [id number] Implanted:Qty: 1 on 07/19/2015 by Florencio Roblero DO at OR [facility] Left: Eye [employer]OM[employer] : SURGICAL 08/02/2017 MX60-21.0 / [id number] / [id number] Lens 22.0 Mx60 - [id number] - [id number] Implanted:Qty: 1 on 08/23/2015 by Florencio Roblero DO at OR [facility] Right: Eye BAUSCH [employer] LOMB : SURGICAL 01/02/2018 MX60-22.0 / [id number] / [id number] documented as of this encounter Advance Directives Latest Code Status on File Code Status Date Activated Date Inactivated Comments Full Code 08/23/2015 6:22 AM 08/23/2015 12:31 PM This order reflects the patients wishes and were consensually agreed upon. Code Status History Code Status Date Activated Date Inactivated Comments Full Code 07/19/2015 6:44 AM 07/19/2015 12:29 PM This order reflects the patients wishes and were consensually agreed upon. Care Teams Investment Recovery Technician Relationship Specialty Start Date End Date Adam Siddiqi MD [address] [facility] [place] [address] PCP - General Internal Medicine 08/15/20 documented as of this encounter
--- OUTSIDE RECORDS SUMMARY | 2023-04-03 03:04 | External Medical Summary | Summary of Care ---
Author Name Unknown Organization [facility] Address [address] [place] [address] Phone [phone] Care Team Providers Care Boatbuilder Wood Name Role Phone Adam Siddiqi MD Primary Care Provider + Reason for Visit * Reason Onset Date Comments Health Maintenance 12/08/2022 Encounter Details Date Type Department Care Team (Late st Contact Info) Description 12/08/2022 Telephone General Internal Medicine [facility] [place] [address] [place] [address] Adam Siddiqi MD [address] [place] [phone] Health Maintenance Allergies Active Allergy Reactions Criticality Noted Date Comments Amoxicillin-Pot Clavulanate Nausea/vomiting 12/31/2018 Penicillins Other (Please comment) High 04/18/2006 "tongue gets bubbly" Last had it ampicillin 1995 documented as of this encounter (statuses as of 03/09/2023) Medications Medication Sig Dispensed Refills Start Date [...] (Lasix)Indications:He art failure, systolic, due to CAD Take 1 Tablet by mouth in the [...] AT BEDTIME 30 Capsule 5 10/31/2022 Active Hospital, Clinic, or Other Facility Administered [...] as of this encounter (statuses as of 03/09/2023) Active Problems Problem Noted Date Diagnosed Date [...] of skin cancer 04/03/2017 Overview: SCC right judaism - 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 [...] as of this encounter (statuses as of 03/09/2023) Resolved Problems Problem Noted Date Diagnosed Date [...] 1994 Echo 06/06/04 35-40% Mixed dyslipidemia 04/18/2006 Overview: Per Lipid Taxonomy. Actinic keratosis 04/18/2006 11/14/2016 Overview: Sees derm documented as of this encounter (statuses as of 03/09/2023) Immunizations Name Administration Dates Next Due COVID-19 mRNA, LNP-s, No Pre serve, 2-Dose Series (Pfizer) 05/11/2020,04/13/2020 Pneumococcal Conjugate Vacc, 13 Valent (Prevnar) 01/07/2015 Pneumococcal Polysaccharide PPV23 (Pneumovax) 05/12/2016 Season Influenza, Quad, PF, Adjuvanted, 65+ Yrs, IM (FLUAD) 11/18/2019 Seasonal Influenza, PF, 6 M & above, IM , (FluLaval or Fluzone) 01/31/2018 Seasonal Influenza, Quadriva lent Hd (Fluzone Hd) 12/05/2021 Seasonal Influenza, Quadriva lent, No Preserve, IM [...] encounter Miscellaneous Notes * Telephone Encounter - Kathrin Vasquez LPN - 12/08/2022 10:43 AM EDT Care Gaps Comprehensive Care Outreach Last Office/Telemedicine Visit: 06/05/2022 (in office), Visit date not found (telemedicine) Next Office Visit: 12/22/2022 Hemoglobin AIC Results: Lab Results Component Value Date/Time HEMOGLOBIN A1C - [facility] 7.2 (H) 06/05/2022 01:51 PM HEMOGLOBIN A1C - [facility] 7.6 (H) 11/28/2021 09:39 AM HEMOGLOBIN A1C - [facility] 7.6 (H) 08/18/2021 08:02 AM HEMOGLOBIN A1C - [facility] 7.8 (H) 11/18/2019 10:57 AM HEMOGLOBIN A1C - [facility] 7.0 (H) 04/01/2019 08:35 AM HEMOGLOBIN A1C - [facility] 7.5 (H) 01/31/2018 08:39 AM Reviewed Health Maintenance below: Health Maintenance Topic Date Due Influenza Vaccine (FLU shot) (1) 11/03/2022 COVID-19 Vaccine ( season) 2022 Albumin/Creatinine Ratio 11/28/2022 Diabetic Foot Exam 12/05/2022 HbA1c 12/05/2022 Labs/urine ordered and scheduled Care Gap Outreach Action Taken: Spoke to patient Labs ordered that were due. I pended his lipid panel. Last done 12/24. Please review and sign if appropriate. documented in this encounter Plan of Treatment Upcoming Encounters Date Type Department Care Team (Late st Contact Info) Description 03/12/2023 8:30 AM EST Office Visit Ophthalmology, [facility] [address] [place] [address] Gregor Solorzano DO [address] [place] [address] 07/03/2023 1:00 PM EDT Office Visit General Internal Medicine [facility] [place] [address] [place] [address] Adam Siddiqi MD [address] [facility] [place] [address] 09/03/2023 8:00 AM EDT Office Visit Cardiology, [facility] [address] [facility] [place] [address] Stephanie Gallo PA-C [address] [place] [address] Health Maintenance Due Date Last Done Comments Hepatitis B (1 of 3 - Risk 3-dose series) 2000 COVID-19 Vaccine (3 - 2022- season) 2022 05/11/2020, 04/13/2020 Depression Screening 04/18/2023 [...] this encounter Medical Devices Implanted Type Area Final Inspection Supervisor Device Identifier Shelf Expiration Date Model / Serial / Lot Lens 21.0 Mx60 - [id number] - [id number] Implanted:Qty: 1 on 07/19/2015 by Florencio Roblero DO at OR [facility] Left: Eye [employer]OM[employer] : SURGICAL 08/02/2017 MX60-21.0 / [id number] / [id number] Lens 22.0 Mx60 - [id number] - [id number] Implanted:Qty: 1 on 08/23/2015 by Florencio Roblero DO at OR [facility] Right: Eye BAUSCH [employer] LOMB : SURGICAL 01/02/2018 MX60-22.0 / [id number] / [id number] documented as of this encounter Results * ALBUMIN / CREATININE RATIO, URINE (12/19/2022 7:56 AM EDT) Albumin, Random Urine 1.28 mg/dL 12/19/2022 2:10 PM EDT [facility] Creatinine, Random Urine 206 mg/dL 12/19/2022 2:10 PM EDT [facility] Albumin / Creatinine Ratio, Urine 6 <30 mg/g Creat 12/19/2022 2:10 PM EDT [facility] Urine Urine specimen obtained by clean catch procedure / Unknown Non-blood Collection / Unknown 12/19/2022 7:56 AM EDT 12/19/2022 7:56 AM EDT Narrative [facility] - 12/19/2022 2:10 PM EDT Normal: <30 mg/g creatinine High: 30-300 mg/g creatinine Very High: >300 mg/g creatinine Nephrotic: >2200 mg/g creatinine Adam Siddiqi MD LAB URINE [facility] [address] [place] [address] * LIPID PANEL WITH DIRECT LDL IF TG IS HIGH (12/19/2022 7:53 AM EDT) Triglycerides 89 <=174 mg/dL 12/19/2022 5:16 PM EDT [facility] Comment: Triglyceride Reference Ranges (mg/dL): <150 Acceptable 150-174 Borderline high 175-499 High >=500 Very high Cholesterol 126 <200 mg/dL 12/19/2022 5:16 PM EDT [facility] [facility] Comment: Total Cholesterol Reference Ranges (mg/dL): <200 Desirable 200-239 Borderline high >=240 High HDL Cholesterol 42 >39 mg/dL 3 5:16 PM EDT [facility] [place] [facility] Comment: HDL Cholesterol Reference Ranges (mg/dL): >=60 High (Desirable) <50 Low (Undesirable) For Females <40 Low (Undesirable) For Males Non-HDL Cholesterol 84 <=159 mg/dL 12/19/2022 5:16 PM EDT [facility] [place] [facility] Comment: Non-HDL Cholesterol Reference Range (mg/dL): <100 Target level for high risk ASCVD patient <130 Optimal for general population 130-159 Near optimal for general population 160-189 Borderline High 190-219 High >=220 Very High LDL Cholesterol 66 <=129 mg/dL 12/19/2022 5:16 PM EDT [facility] [place] Comment: LDL Cholesterol Reference Ranges (mg/dL): <70 Target level for high risk ASCVD patient <100 Optimal for general population 100-129 Near optimal for general population 130-159 Borderline high 160-189 High >=190 Very high Blood Venous blood specimen / Unknown Venipuncture / Unknown 12/19/2022 7:53 AM EDT 12/19/2022 7:53 AM EDT Adam Siddiqi MD LAB BLOOD ORDERA BLES [facility] [address] [place] [address] * (ABNORMAL) HEMOGLOBIN A1C (12/19/2022 7:53 AM EDT) Hemoglobin A1C 7.6(H) 4.0 - 5.6 % 12/19/2022 3:15 PM EDT [facility] Comment:The use of HbA1c to monitor glycemic status is based on normal hemoglobin and HbA composition. This test should not be used in patients with abnormal hemoglobin that affects the half life of the red blood cell or the in vivo glycation rates. Estimated Average Glucose 171(H) <126 mg/dL 12/19/2022 3:15 PM EDT LABORATORY [facility] Blood Venous blood specimen / Unknown Venipuncture / Unknown 12/19/2022 7:53 AM EDT 12/19/2022 7:53 AM EDT Adam Siddiqi MD LAB BLOOD ORDERA BLES [facility] [place] [address] [place] [address] documented in this encounter Visit Diagnoses Diagnosis Diabetes mellitus screening- Primary Screening for diabetes mellitus Screening for nephropathy Type 2 diabetes mellitus with hemoglobin A1c goal of less than 8.0% (HCC) Mixed hyperlipidemia documented in this encounter Advance Directives Latest Code Status [...] and were consensually agreed upon. Care Teams Boatbuilder Wood Relationship Specialty Start Date End Date Adam Siddiqi MD [address] [place] [address] PCP - General Internal Medicine 08/15/20 documented as of this encounter
--- OUTSIDE RECORDS SUMMARY | 2023-04-03 03:04 | External Medical Summary ---
Author Name Unknown Address Unknown Organization [id number]:[facility] - [address] [place] [address] Laboratory Report Ordering Provider Test Date Status ABDIFATAH PANG 03/26/2023 07:50:19 Final Observation Date Value Abnormality Reference (Units ) Status Ferritin 03/26/2023 07:50:19 954 Above high normal 30 -400 (ng/mL) Final Performing Location [facility] - [address] [place] [address]
--- OUTSIDE RECORDS SUMMARY | 2023-04-03 03:04 | External Medical Summary | Summary of Care ---
Author Name Unknown Organization [facility] Address [address] [place] [address] Phone [phone] Care Team Providers Care Netting Inspector Name Role Phone Adam Siddiqi MD Primary Care Provider + Reason for Visit * Reason Comments Follow Up Encounter Details Date Type Department Care Team (Late st Contact Info) Description 02/22/2023 9:30 AM EST Office Visit Cardiology, [facility] [address] [place] [address] Zbigniew Jolley DO [address] [place] [address] Paroxysmal atrial fibrillation (HCC)* Allergies Active Allergy Reactions Criticality Noted Date Comments Amoxicillin-Pot Clavulanate Nausea/vomiting 12/31/2018 Penicillins Other (Please comment) High 04/18/2006 "tongue gets bubbly" Last had it ampicillin 1995 documented as of this encounter (statuses as of 02/22/2023) Medications Medication Sig Dispensed Refills Start Date End Date Status ASPIRIN 81 MG PO TABSIndications:Mi xed dyslipidemia one tab by mouth daily 34 0 04/18/2006 Active Acetaminophen 500 MG Oral Tablet (Tylenol)Indicatio ns:Acute left-sided low back pain without sciatica Take 2 Tablets by mouth every 8 hours as needed for Pain, Severe. 100 Tab 0 11/24/2020 Active Spironolactone 25 MG Oral Tablet (Aldactone)Indicat ions:HTN, goal below 140/90 Take 0.5 Tablets by mouth in the morning. 30 Tablet 11 05/02/2022 Active Furosemide 20 MG Oral Tablet (Lasix)Indications :Heart failure, systolic, due to CAD Take 1 Tablet by mouth in the morning. 90 Tablet 3 08/14/2022 Active Lisinopril 2.5 MG Oral Tablet (Prinivil)Indicati ons:HTN, goal below 140/90 Take 1 Tablet by mouth in the morning. In the morning.. 90 Tablet 1 08/14/2022 Active Eliquis 5 MG Oral Tablet (Apixaban)Indicati ons:New onset atrial fibrillation (HCC) TAKE ONE TABLET BY MOUTH TWICE DAILY 180 Tablet 3 09/06/2022 Active PreserVision AREDS 2+Multi Vit Oral Capsule Take by mouth. 0 Active Tamsulosin HCl 0.4 MG Oral Capsule (Flomax)Indication s:BPH with obstruction/lower urinary tract symptoms TAKE 1 [...] Release 24 Hour (toPROL XL)Indications:Old myocardial infarct,Ischemic cardiomyopathy,Hea rt failure, systolic, due to CAD TAKE 1 TABLET BY MOUTH EVERY MORNING 90 Tablet 1 01/07/2023 Active OMEGA-3 FISH OIL 1000 MG PO CAPSIndications:Ol d myocardial infarct,Mixed dyslipidemia Take one capsule by mouth twice a day 60 5 02/08/2009 02/22/2023 Discontinued (Medication/ Dose Changed) Hospital, Clinic, or Other Facility Administered Medication [...] as of this encounter (statuses as of 02/22/2023) Active Problems Problem Noted Date Diagnosed Date [...] of skin cancer 04/03/2017 Overview: 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 [...] as of this encounter (statuses as of 02/22/2023) Resolved Problems Problem Noted Date Diagnosed Date [...] as of this encounter (statuses as of 02/22/2023) Immunizations Name Administration Dates Next Due COVID-19 mRNA, LNP-s, No Pre serve, 2-Dose Series ([employer]) 05/11/2020,04/13/2020 Pneumococcal Conjugate Vacc, 13 Valent (Prevnar) [...] 15 Q uit: 03/05/1994 Smokeless Tobacco: Never Tobacco Cessation:Counseling Given: Not Answered Alcohol Use Standard Drinks/Week Comments Yes 0 [...] on file documented as of this encounter Last Filed Vital Signs Vital Sign Reading Time Taken Comments Blood Pressure 118/78 02/22/2023 8:35 AM EST Pulse 77 02/22/2023 8:35 AM EST Temperature - - Respiratory Rate 18 02/22/2023 8:35 AM EST Oxygen Saturation - - Inhaled Oxygen Concentration - - Weight 88.6 kg (195 lb 4.8 oz) 02/22/2023 8:35 A M EST Height - - Body Mass Index 28.84 01/17/2023 10:55 AM EST documented in this encounter Progress Notes * Zbigniew Jolley, DO - 02/22/2023 8:50 AM EST Cardiology Outpatient Follow-up Janis Mckeon is a 82 year old male who is seen for follow-up of cardiomyopathy. HPI: This is an 82-year-old male patient who sustained an anterior wall myocardial infarction in 1994. At that time he was diagnosed with an ischemic cardiomyopathy. His last estimated left ventricular ejection fraction on an echocardiogram completed at [facility] in 2019 was 30-35%. Over the years he has been a minimalist and refused a primary prevention ICD. Frankly, all things considered he has done well over the years. He did have an episode of pneumonia approximately 3 years ago when he was in the hospital at which time he was noted to be in atrial fibrillation and started on anticoagulation. He has no ongoing cardiac complaints today. He remains active and has not experienced any progressive shortness of breath. He denies orthopnea or lower extremity edema. No dizziness or lightheadedness. 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 Diverticulosis of colon 03/28/2005 Hemorrhoids 03/28/2005 History of heart attack History of stroke Other malignant neoplasm of other specified sites of skin basal cell carcinoma Type 2 diabetes mellitus with hemoglobin A1c goal of less than 8.0% (HCC) 11/05/2020 Patient Active Problem List Diagnosis Code Old myocardial infarct I25.2 Ischemic cardiomyopathy I25.5 Mixed hyperlipidemia E78.2 HTN, goal below 140/90 I10 Heart failure, systolic, due to CAD I50.20, I25.10 Personal history of skin cancer Z85.828 Spinal stenosis of lumbar region with neurogenic claudication M48.062 HNP (herniated nucleus pulposus), lumbar M51.26 Hypertensive heart disease with chronic systolic congestive heart failure (HCC) I11.0, I50.22 Type 2 diabetes mellitus with hemoglobin A1c goal of less than 8.0% (HCC) E11.9 Paroxysmal atrial fibrillation (HCC) I48.0 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 COLONOSCOPY 09/13/2000 adenomatous polyps, repeat in3-5 years COLONOSCOPY 03/28/2005 tubular adenoma, repeat in 3-5 years. COLONOSCOPY THRU STOMA, W/BIOPSY 01/17/2010 adenomatous polyp, repeat in 5 years COLONOSCOPY, DIAGNOSTIC (RECTUM) 07/07/2015 adenomatous & hyperplastic polyps, repeat 5 yrs/[facility] COLONOSCOPY, DIAGNOSTIC (RECTUM) 06/02/2021 benign adenomatous polyp / [facility] INFORMATION s/p BCC excision. INFORMATION pyloric stenosis surgery at a baby INJECT DX/THER SUBSTANCE INTERLAMINAR LUMBAR/SACRAL W IMAGE GUIDE 06/20/2018 INJECTION SPINE LUMBAR OR SACRAL performed by Rahul Meadowss, DO at OR [facility] INJECTION OF EYE DRUG Right 09/29/2021 # 1 Avastin OD, Dr. Solorzano INJECTION OF EYE DRUG Right 10/28/2021 # 2 Avastin OD, Dr. Solorzano INJECTION OF EYE DRUG Right 12/09/2021 # 3 Avastin OD, Dr. Solorzano INJECTION OF EYE DRUG Right 02/10/2022 # 4 Avastin OD, Dr. Solorzano INJECTION OF EYE DRUG Right 04/28/2022 # 5 Avastin OD, Dr. Solorzano INJECTION OF EYE DRUG Right 06/29/2022 # 6 Avastin OD, Dr. Solorzano INJECTION OF EYE DRUG Right 08/31/2022 # 7 Avastin OD, Dr. Solorzano INJECTION OF EYE DRUG Right 11/02/2022 # 1 Eylea OD, Dr. Solorzano INJECTION OF EYE DRUG Right 01/11/2023 #2 Eylea OD; Dr Solorzano OTHER (INFORMATION) ACT 112 SIGNED -- OPH (09-29-2021) OTHER (INFORMATION) Bilateral AVASTIN OU CONSENT DR. SOLORZANO/WOJCIECH EXP. 09/29/22 OTHER (INFORMATION) Bilateral EYLEA OU CONSENT DR. SOLORZANO/WOJCIECH EXP. 11/03/23 REMOVAL OF APPENDIX Appendectomy at age 12 REMOVE CATARACT, INSERT LENS PROSTH Left 07/19/2015 EXTRACAPSULAR CATARACT REMOVAL WITH INTRAOCULAR LENS performed by Florencio Roblero DO at OR [facility] REMOVE CATARACT, INSERT LENS PROSTH Right 08/23/2015 EXTRACAPSULAR CATARACT REMOVAL WITH INTRAOCULAR LENS performed by Florencio Roblero DO at OR [facility] Family History Problem Relation Age of Onset Stroke Father multiple Eye Problems Sister AMD Cancer Sister multiple myeloma Heart Disorder Sister s/p mvr Heart Disorder Brother of CAD at age 55 Thyroid Disorder Brother thyroid problem Heart Disorder Brother CAD Musculo-skeletal Disorder Brother arthritis Eye Problems Other Denies family h/o RD, glaucoma, or blindness Diabetes No significant family history Hypertension No significant family history Social History Tobacco Use Smoking status: Former Years: 15 Types: Cigarettes Quit date: 03/05/1994 Years since quittin.9 Smokeless tobacco: Never Vaping Use Vaping Use: Never used Substance Use Topics Alcohol use: Yes Comment: rare Drug use: No Review of patient's allergies indicates: Allergen Reactions Penicillins Other (Please comment) "tongue gets bubbly" Last had it ampicillin 1994 Augmentin [Amoxicillin-Pot Clavulanate] Nausea/vomiting Current Outpatient Medications Medication Sig Dispense Refill ASPIRIN 81 MG PO TABS one tab by mouth daily 34 0 Acetaminophen 500 MG Oral Tablet (Tylenol) Take 2 Tablets by mouth every 8 hours as needed for Pain, Severe. 100 Tab 0 Spironolactone 25 MG Oral Tablet (Aldactone) Take 0.5 Tablets by mouth in the morning. 30 Tablet 11 Furosemide 20 MG Oral Tablet (Lasix) Take 1 Tablet by mouth in the morning. 90 Tablet 3 Lisinopril 2.5 MG Oral Tablet (Prinivil) Take 1 Tablet by mouth in the morning. In the morning.. 90Tablet 1 Eliquis 5 MG Oral Tablet (Apixaban) TAKE ONE TABLET BY MOUTH TWICE DAILY 180 Tablet 3 PreserVision AREDS 2+Multi Vit Oral Capsule Take by mouth. Tamsulosin HCl 0.4 MG Oral Capsule (Flomax) TAKE 1 CAPSULE BY MOUTH AT BEDTIME 30 Capsule 5 Finasteride 5 MG Oral Tablet (Proscar) Take 1 Tablet by mouth in the morning. 90 Tablet 1 Atorvastatin Calcium 80 MG Oral Tablet (Lipitor) Take 1 Tablet by mouth in the morning. In the morning.. 90 Tablet 0 Metoprolol Succinate ER 50 MG Oral Tablet Extended Release 24 Hour (toPROL XL) TAKE 1 TABLET BY MOUTH EVERY MORNING 90 Tablet 1 Current Facility-Administered Medications Medication Dose Route Frequency Provider Last Rate Last Admin Aflibercept (Eylea) intraviteal prefilled syringe 2 mg 2 mg Intravitreal PRN Gregor Solorzano,DO 2 mg at 01/11/23 0846 ROPivacaine (Naropin) inj 1.5 mg 1.5 mg Injection PRN Gregor Solorzano, DO 1.5 mg at 01/11/23 0845 ROS: Review of Systems: See HPI for pertinent positives. All other review of systems is negative. PHYSICAL EXAMINATION BP 118/78 | Pulse 77 | Resp 18 | Wt 88.6 kg (195 lb 4.8 oz) | BMI 28.84 kg/m | BSA 2.08 m Body mass index is 28.84 kg/m. General: no acute distress and stated age Head: normocephalic, no masses, lesions, tenderness or abnormalities Eyes: conjunctiva are pink and non-injected, sclera clear Neck: supple, no adenopathy, no bruits, normal jugular venous pulse, no hepatojugular reflux Chest: normal shape and normal respiratory effort Lungs: clear to auscultation and percussion Cardiac Exam: - irregular rate & rhythm, no murmurs gallops or rubs - normal S1, normal S2 Pulses: 2(+) throughout Abdomen: abdomen soft, non-tender, no abnormal masses and no hepatosplenomegaly Musculoskeletal: no gait disturbance, no joint inflammation, no deforming arthritis Extremities: no edema and no cyanosis Neuro: grossly normal exam Laboratory Data Review: No recent data Impression: 1. Ischemic cardiomyopathy 2. Prior anterior wall myocardial infarction 1994 3. Chronic systolic heart failure with an estimated left ventricular ejection fraction of 30-35% 4. Diabetes mellitus 5. History of a prior TIA or small stroke in 2019 6. Chronic left bundle branch block 7. Persistent atrial fibrillation Plan: As mentioned above, the patient in the past has been a minimalist and has not wanted to consider a ICD or other device implant. I had a discussion with him this morning and indicated to him that based on his history along with persistent atrial fibrillation and left bundle branch block that in the future he may require or benefit from a pacemaker or biventricular pacemaker. He is satisfied currently with his treatment. We will have follow-up with him in 6 months or earlier if needed. This chart was completed in part utilizing [employer] Speech Voice Recognition Software. Grammatical errors, random word insertions, prounoun errors, and incomplete sentences are an occasional consequence of this system due to software limitations, ambient noise, and hardware issues. Any formal questions or concerns about the content, text, or information contained within the body of this dictation should be directly addressed to the provider for clarification. I spent a total of 30-39 minutes (exact time 38 mins) on the date of service in preparation, delivery, and documentation of the care provided to Janis Mckeon excluding any time spent in the performance of separately billed services. Zbigniew Jolley DO [address]iology[address] [address] 02/22/2023 documented in this encounter Nursing Notes * Diamond Martinez LPN - 02/22/2023 8:39 AM EST Examination Room: 16 Name: Janis Mckeon Date of : (1940) Reason for Visit: Follow up Interim Hospitalization(s): Denies Problems/Concerns: Denies Chest Pain/SOB: Denies [facility] is a way you can talk to your provider online through e-mail. Would you like to sign up? I can activate it for you? ALREADY ACTIVE Patient was instructed to not get up on the exam table until directed and assisted by their provider; patient is to remain seated in the chair/ wheelchair/ exam table for fall prevention and safety reasons. Patient is aware to have assistance to step down off exam table with personnel. Patient voiced full comprehension of instructions. documented in this encounter Plan of Treatment Upcoming Encounters Date Type Department Care Team (Late st Contact Info) Description 03/12/2023 8:30 AM EST Office Visit Ophthalmology, [facility] [address] [place] [address] Gregor Solorzano DO [address] [facility] [place] [address] 07/03/2023 1:00 PM EDT Office Visit General Internal Medicine [facility] [address] [place] [address] Adam Siddiqi MD [address] [facility] [address] 09/03/2023 8:00 AM EDT Office Visit Cardiology, [facility] [address] [place] [address] Stephanie Gallo PA-C [address] [place] [address] Scheduled Orders Name Type Priority Associated Diagnoses Orde r Schedule EKG EKG Routine Paroxysmal atrial fibrillation (HCC) Ordered: 02/22/2023 Health Maintenance Due Date Last Done Comments Hepatitis B (1 of 3 - Risk 3-dose series) 2000 COVID-19 Vaccine ( season) 2022 05/11/2020, 04/13/2020 Depression Screening 04/18/2023 [...] this encounter Medical Devices Implanted Type Area Inner Layer Scrubber Tender Device Identifier Shelf Expiration Date Model / Serial / Lot Lens 21.0 Mx60 - [id number] - [id number] Implanted:Qty: 1 on 07/19/2015 by Florencio Roblero DO at OR [facility] Left: Eye [employer] : SURGICAL 08/02/2017 MX60-21.0 / [id number] / [id number] Lens 22.0 Mx60 - [id number] - [id number] Implanted:Qty: 1 on 08/23/2015 by Florencio Roblero DO at OR [facility] Right: Eye [employer]OM[employer] : SURGICAL 01/02/2018 MX60-22.0 / [id number] / [id number] documented as of this encounter Visit Diagnoses Diagnosis Paroxysmal atrial fibrillation (HCC)- Primary Atrial fibrillation documented in this encounter Advance Directives Latest [...] and were consensually agreed upon. Care Teams Netting Inspector Relationship Specialty Start Date End Date Adam Siddiqi MD [address] [place] [address] PCP - General Internal Medicine 08/15/20 documented as of this encounter
--- OUTSIDE RECORDS SUMMARY | 2023-04-03 03:04 | External Medical Summary | Summary of Care ---
Author Name Unknown Organization [facility] Address [address] [place] [address] Phone [phone] Care Team Providers Care Rabbit Dresser Name Role Phone Adam Siddqii MD Primary Care Provider + Reason for Visit * Reason Onset Date Comments Test Results 03/02/2023 Encounter Details Date Type Department Care Team (Late st Contact Info) Description 03/02/2023 Telephone General Internal Medicine [facility] [place] [address] [place] [address] Adam Siddiqi MD [address] [place] [address] Test Results Allergies Active Allergy Reactions Criticality Noted Date Comments Amoxicillin-Pot Clavulanate Nausea/vomiting 12/31/2018 Penicillins Other (Please comment) High 04/18/2006 "tongue gets bubbly" Last had it ampicillin 1995 documented as of this encounter (statuses as of 03/06/2023) Medications Medication Sig Dispensed Refills Start Date [...] infarct,Ischemic cardiomyopathy,Heart failure, systolic, due to CAD TAKE 1 TABLET BY MOUTH EVERY MORNING 90 Tablet 1 01/07/2023 Active Hospital, Clinic, or Other Facility Administered [...] as of this encounter (statuses as of 03/06/2023) Active Problems Problem Noted Date Diagnosed Date [...] of skin cancer 04/03/2017 Overview: SCC right mormon - 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 [...] as of this encounter (statuses as of 03/06/2023) Resolved Problems Problem Noted Date Diagnosed Date [...] as of this encounter (statuses as of 03/06/2023) Immunizations Name Administration Dates Next Due COVID-19 [...] encounter Miscellaneous Notes * Telephone Encounter - Kiarra Rodriguez LPN - 03/06/2023 8:11 AM EST Patient is aware and verbalizes understanding. Patient will walk in to lab at own convenience * Telephone Encounter - Yoseph Winkler CMA - 03/02/2023 2:37 PM EST Called, left message for patient to return call. * Telephone Encounter - Yoseph Winkler CMA - 03/02/2023 2:37 PM EST ----- Message from Adam Siddiqi MD sent at 03/02/2023 8:25 AM EST ----- Ferritin is stable, iron fairly stable Hgb decreased, but stable, recheck cbc 1 month to trend notify any rectal bleeding, dark stools or other bleeding documented in this encounter Plan of Treatment Upcoming Encounters Date Type Department Care Team (Late st Contact Info) Description 03/12/2023 8:30 AM EST Office Visit Ophthalmology, [facility] [address] [facility] [place] [address] Gregor Solorzano DO [address] [place] [address] 07/03/2023 1:00 PM EDT Office Visit General Internal Medicine [facility] [address] [facility] [place], [place] [address] Adam Siddiqi MD [address] [facility] [place] [address] 09/03/2023 8:00 AM EDT Office Visit Cardiology, [facility] [address] [facility] [place] [address] Stephanie Gallo PA-C [address] [place] [address] Health Maintenance Due Date Last Done Comments [...] this encounter Medical Devices Implanted Type Area Environmental Services Lead Device Identifier Shelf Expiration Date Model / Serial / Lot Lens 21.0 Mx60 - [id number] - [id number] Implanted:Qty: 1 on 07/19/2015 by Florencio Roblero DO at OR [facility] Left: Eye [employer]OM[employer] : SURGICAL 08/02/2017 MX60-21.0 / [id number] / [id number] Lens 22.0 Mx60 - [id number] - [id number] Implanted:Qty: 1 on 08/23/2015 by Florencio Roblero DO at OR [facility] Right: Eye [employer] LOMB : SURGICAL 01/02/2018 MX60-22.0 / [id number] / [id number] documented as of this encounter Advance Directives [...] and were consensually agreed upon. Care Teams Rabbit Dresser Relationship Specialty Start Date End Date Adam Siddiqi MD [address] [place] [address] PCP - General Internal Medicine 08/15/20 documented as of this encounter
--- OUTSIDE RECORDS SUMMARY | 2023-04-03 03:04 | External Medical Summary | Summary of Care ---
Author Name Unknown Organization [facility] Address [address] [place] [address] Phone [phone] Care Team Providers Care Fruit Canner Name Role Phone Adam Siddiqi MD Primary Care Provider + Reason for Visit * Reason Comments Outpatient Testing Encounter Details Date Type Department Care Team (Late st Contact Info) Description 02/22/2023 8:40 AM EST Laboratory Laboratory, [facility] [address] [facility] [address] [facility] [address] [facility] [place] [address] Elevated ferritin; Leukocytosis, unspecified type Allergies Active Allergy Reactions Criticality Noted Date [...] of skin cancer 04/03/2017 Overview: SCC right synagogue - 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 [...] on file documented as of this encounter Plan of Treatment Upcoming Encounters Date Type Department Care Team (Late st Contact Info) Description 02/22/2023 9:30 AM EST Office Visit Cardiology, [facility] [address] [place] [address] Zbigniew Jolley, DO [address] [place] [address] Paroxysmal atrial fibrillation (HCC)* 03/12/2023 8:30 AM EST Office Visit Ophthalmology, [facility] [address] [place] [address] Gregor Solorzano, DO [address] [place] [address] 07/03/2023 1:00 PM EDT Office Visit General Internal Medicine [facility] [address] [facility] [place] [address] Adam [facility]iddiqi MD [address] [facility] [address] 09/03/2023 8:00 AM EDT Office Visit Cardiology, [facility] [address] [place] [address] Stephanie Gallo PA-C [address] [place] [address] [place] [address] Pending Results Name Type Priority Associated Diagnoses Date /Time CBC WITH WBC DIFFERENTIAL Lab Routine Elevated ferritin Leukocytosis, unspecified type 02/22/2023 8:24 AM EST FERRITIN Lab Routine Elevated ferritin Leukocytosis, unspecified type 02/22/2023 8:24 AM EST IRON SCREEN, INCLUDING TIBC Lab Routine Elevated ferritin Leukocytosis, unspecified type 02/22/2023 8:24 AM EST CBC Lab Routine Elevated ferritin Leukocytosis, unspecified type 02/22/2023 8:24 AM EST DIFFERENTIAL, AUTOMATED Lab Routine Elevated ferritin Leukocytosis, unspecified type 02/22/2023 8:24 AM EST Health Maintenance Due Date Last Done Comments [...] this encounter Medical Devices Implanted Type Area Apprentice Painter Hand Device Identifier Shelf Expiration Date Model / Serial / Lot Lens 21.0 Mx60 - [id number] - [id number] Implanted:Qty: 1 on 07/19/2015 by Florencio Roblero DO at OR [facility] Left: Eye [employer] LOM[employer] : SURGICAL 08/02/2017 MX60-21.0 / [id number] / [id number] Lens 22.0 Mx60 - [id number] - [id number] Implanted:Qty: 1 on 08/23/2015 by Florencio Roblero DO at OR [facility] Right: Eye [employer]CH [employer] LOMB : SURGICAL 01/02/2018 MX60-22.0 / [id number] / [id number] documented as of this encounter Visit Diagnoses Diagnosis Paroxysmal atrial fibrillation (HCC)- Primary Atrial fibrillation Elevated ferritin Other abnormal blood chemistry Leukocytosis, unspecified type documented in this encounter Advance Directives Latest [...] and were consensually agreed upon. Care Teams Fruit Canner Relationship Specialty Start Date End Date Adam Siddiqi MD [address] [place] [address] PCP - General Internal Medicine 08/15/20 documented as of this encounter
--- OUTSIDE RECORDS SUMMARY | 2023-04-03 03:04 | External Medical Summary ---
Author Name Unknown Address Unknown Organization K01:[facility] - [address] [place] [address] Laboratory Report Ordering Provider Test Date Status ABDIFATAH PANG 02/22/2023 08:24:51 Final Observation Date Value Abnormality Reference (Units ) Status Iron 02/22/2023 08:24:51 31 Below low normal 45-176 (ug/dL) Final Iron-binding capacity 02/22/2023 08:24:51 203 Below low normal 250-425 (ug/dL) Final Transferrin Sat % 02/22/2023 08:24:51 15 15-55 (%) Final Performing Location [facility] - [address] [place] [address]
--- OUTSIDE RECORDS SUMMARY | 2023-04-03 03:04 | External Medical Summary ---
Author Name Unknown Address Unknown Organization K01:[facility] - [address] [place] [address] Laboratory Report Ordering Provider Test Date Status ABDIFATAH PANG 03/26/2023 07:50:19 Final Observation Date Value Abnormality Reference (Units ) Status Iron 03/26/2023 07:50:19 59 45-176 (ug/dL) Final Iron-binding capacity 03/26/2023 07:50:19 217 Below low normal 250-425 (ug/dL) Final Transferrin Sat % 03/26/2023 07:50:19 27 15-55 (%) Final Performing Location [facility] - [address] [place] [address]
--- OUTSIDE RECORDS SUMMARY | 2023-04-03 03:04 | External Medical Summary | Summary of Care ---
Author Name Unknown Organization [facility] Address [address] [place] [address] Phone [phone] Care Team Providers Care Sprayer Leather Name Role Phone Adam Siddiqi MD Primary Care Provider + Reason for Visit * Reason Comments Outpatient Testing Encounter Details Date Type Department Care Team (Late st Contact Info) Description 03/26/2023 8:20 AM EST Laboratory Laboratory, [facility] [address] [facility] [place] [address] [employer] [address] [facility] [place] [address] Decreased hemoglobin Allergies Active Allergy Reactions Criticality Noted Date Comments Amoxicillin-Pot Clavulanate Nausea/vomiting 12/31/2018 Penicillins Other (Please comment) High 04/18/2006 "tongue gets bubbly" Last had it ampicillin 1995 documented as of this encounter (statuses as of 03/26/2023) Medications Medication Sig Dispensed Refills Start Date [...] as of this encounter (statuses as of 03/26/2023) Active Problems Problem Noted Date Diagnosed Date [...] of skin cancer 04/03/2017 Overview: 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 [...] as of this encounter (statuses as of 03/26/2023) Resolved Problems Problem Noted Date Diagnosed Date [...] as of this encounter (statuses as of 03/26/2023) Immunizations Name Administration Dates Next Due COVID-19 mRNA, LNP-s, No Pre serve, 2-Dose Series (Myagi) 05/11/2020,04/13/2020 Pneumococcal Conjugate Vacc, 13 Valent (Prevnar) [...] 05/15/2023 8:45 AM EDT Office Visit Ophthalmology, [facility] [address] [place] [address] Gregor Solorzano DO [address] [place] [address] 07/03/2023 1:00 PM EDT Office Visit General Internal Medicine [facility] [address] [facility] [place] [address] Adam [facility]iddiqi MD [facility] [address] 09/03/2023 8:00 AM EDT Office Visit Cardiology, [facility] 132 [facility] [place] [address] Stephanie Gallo PA-C [address] [place] [address] [place] [address] Pending Results Name Type Priority Associated Diagnoses Date /Time CBC WITH WBC DIFFERENTIAL Lab Routine Decreased hemoglobin 03/26/2023 7:50 AM EST FERRITIN Lab Routine Decreased hemoglobin 03/26/2023 7:50 AM EST IRON SCREEN, INCLUDING TIBC Lab Routine Decreased hemoglobin 03/26/2023 7:50 AM EST CBC Lab Routine Decreased hemoglobin 03/26/2023 7:50 AM EST DIFFERENTIAL, AUTOMATED Lab Routine Decreased hemoglobin 03/26/2023 7:50 AM EST Health Maintenance Due Date Last Done Comments Hepatitis B (1 of 3 - Risk 3-dose series) 2000 COVID-19 Vaccine (3 - season) 2022 05/11/2020, 04/13/2020 Depression Screening [...] this encounter Medical Devices Implanted Type Area Otr Owner Operator Truck Driver Device Identifier Shelf Expiration Date Model / Serial / Lot Lens 21.0 Mx60 - [id number] - [id number] Implanted:Qty: 1 on 07/19/2015 by Florencio Roblero DO at OR [facility] Left: Eye [employer] : SURGICAL 08/02/2017 MX60-21.0 / [id number] / [id number] Lens 22.0 Mx60 - [id number] - [id number] Implanted:Qty: 1 on 08/23/2015 by Florencio Roblero DO at OR [facility] Right: Eye BAUSCH [employer] LOMB : SURGICAL 01/02/2018 MX60-22.0 / [id number] / [id number] documented as of this encounter Visit Diagnoses Diagnosis Decreased hemoglobin Anemia, unspecified documented in this encounter Advance Directives Latest [...] and were consensually agreed upon. Care Teams Sprayer Leather Relationship Specialty Start Date End Date Adam Siddiqi MD [address] [place] [address] PCP - General Internal Medicine 08/15/20 documented as of this encounter
--- OUTSIDE RECORDS SUMMARY | 2023-04-03 03:04 | External Medical Summary | Summary of Care ---
Author Name Unknown Organization [facility] Address [address] [place] [address] Phone [phone] Care Team Providers Care Silk Worker Name Role Phone Adam Siddiqi MD Primary Care Provider + Reason for Visit * Reason Onset Date Comments Test Results 01/23/2023 Encounter Details Date Type Department Care Team (Late st Contact Info) Description 01/23/2023 Telephone General Internal Medicine [facility] [place] [address] [place] [address] Adam Siddiqi MD [address] [place] [address] Test Results Allergies Active Allergy Reactions Criticality Noted Date Comments Amoxicillin-Pot Clavulanate Nausea/vomiting 12/31/2018 Penicillins Other (Please comment) High 04/18/2006 "tongue gets bubbly" Last had it ampicillin 1995 documented as of this encounter (statuses as of 01/23/2023) Medications Medication Sig Dispensed Refills Start Date End Date Status ASPIRIN 81 MG PO TABSIndications:Mix ed dyslipidemia one tab by mouth daily 34 0 04/18/2006 Active OMEGA-3 FISH OIL 1000 MG PO CAPSIndications:Old myocardial infarct,Mixed dyslipidemia Take one capsule by mouth twice a day 60 5 02/08/2009 Active Additional Information Patient not taking.Reported on 01/11/2023 Acetaminophen 500 MG Oral Tablet (Tylenol)Indication s:Acute left-sided low back pain without sciatica Take 2 Tablets by mouth every 8 hours as needed for Pain, Severe. 100 Tab 0 11/24/2020 Active Spironolactone 25 MG Oral Tablet (Aldactone)Indicati ons:HTN, goal below 140/90 Take 0.5 Tablets by mouth in the morning. 30 Tablet 11 05/02/2022 Active Furosemide 20 MG Oral Tablet (Lasix)Indications: Heart failure, systolic, due to CAD Take 1 Tablet by mouth in the morning. 90 Tablet 3 08/14/2022 Active Lisinopril 2.5 MG Oral Tablet (Prinivil)Indicatio ns:HTN, goal below 140/90 Take 1 Tablet by mouth in the morning. In the morning.. 90 Tablet 1 08/14/2022 Active Eliquis 5 MG Oral Tablet (Apixaban)Indicatio ns:New onset atrial fibrillation (HCC) TAKE ONE TABLET BY MOUTH TWICE DAILY 180 Tablet 3 09/06/2022 Active PreserVision AREDS 2+Multi Vit Oral Capsule Take by mouth. 0 Active Tamsulosin HCl 0.4 MG Oral Capsule (Flomax)Indications :BPH with obstruction/lower urinary tract symptoms TAKE 1 [...] Release 24 Hour (toPROL XL)Indications:Old myocardial infarct,Ischemic cardiomyopathy,Hear t failure, systolic, due to CAD TAKE 1 [...] as of this encounter (statuses as of 01/23/2023) Active Problems Problem Noted Date Diagnosed Date [...] of skin cancer 04/03/2017 Overview: SCC right mormonism - 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 [...] as of this encounter (statuses as of 01/23/2023) Resolved Problems Problem Noted Date Diagnosed Date [...] as of this encounter (statuses as of 01/23/2023) Immunizations Name Administration Dates Next Due COVID-19 mRNA, LNP-s, No Pre serve, 2-Dose Series (LiquiGlide) 05/11/2020,04/13/2020 Pneumococcal Conjugate Vacc, 13 Valent (Prevnar) 01/07/2015 Pneumococcal Polysaccharide PPV23 (Pneumovax) 05/12/2016 SEASONAL INFLUENZA, PF, 6 M & Above, IM , (FLULAVAL or FLUZONE) 01/31/2018 Season Influenza, Quad, PF, Adjuvanted, 65+ Yrs, IM (FLUAD) 11/18/2019 Seasonal Influenza, Quadriva lent Hd (Fluzone Hd) [...] encounter Miscellaneous Notes * Telephone Encounter - Yoseph Winkler CMA - 01/23/2023 9:08 AM EST Patient aware and verbalized understanding * Telephone Encounter - Yoseph Winkler CMA - 01/23/2023 8:24 AM EST ----- Message from Adam Siddiqi MD sent at 01/21/2023 1:55 PM EST ----- 1. Wbc is high, but I believe he is on steroids which can raise this. I would recheck this 1 month.I hope his pain s better in neck he was seen virtually for in [place] 2. Hgb is stable as is iron, documented in this encounter Plan of Treatment Upcoming Encounters Date Type Department Care Team (Late st Contact Info) Description 02/22/2023 9:30 AM EST Office Visit Cardiology, [facility] [place] [address] Zbigniew Jolley, [address] [place] [address] [place] [address] 03/12/2023 8:30 AM EST Office Visit Ophthalmology, [facility] [address] [place] [address] Gregor Solorzano DO [address] [place] [address] 07/03/2023 1:00 PM EDT Office Visit General Internal Medicine [facility] [address] [facility] [place] [address] Adam Siddiqi MD [address] [facility] [place] [address] Health Maintenance Due Date Last Done Comments [...] this encounter Medical Devices Implanted Type Area Transport Assistant Device Identifier Shelf Expiration Date Model / Serial / Lot Lens 21.0 Mx60 - [id number] - [id number] Implanted:Qty: 1 on 07/19/2015 by Florencio Roblero DO at OR [facility] Left: Eye BAUSCH [employer] LOMB : SURGICAL 08/02/2017 MX60-21.0 / [id number] / [id number] Lens 22.0 Mx60 - [id number] - [id number] Implanted:Qty: 1 on 08/23/2015 by Florencio Roblero DO at OR [facility] Right: Eye BAUSCH [employer] LOMB : SURGICAL 01/02/2018 MX60-22.0 / [id number] / [id number] documented as of this encounter Advance Directives [...] and were consensually agreed upon. Care Teams Silk Worker Relationship Specialty Start Date End Date Adam Siddiqi MD [address] [place] [address] PCP - General Internal Medicine 08/15/20 documented as of this encounter
--- OUTSIDE RECORDS SUMMARY | 2023-04-03 03:04 | External Medical Summary ---
Author Name Unknown Address Unknown Organization [id number]:[facility] [place] [address] [place] [address] Laboratory Report Ordering Provider Test Date Status ABDIFATAH PANG 02/22/2023 08:24:51 Final Observation Date Value Abnormality Reference (Units ) Status WBC, Total 02/22/2023 08:24:51 9.74 4.00-10.8 0 (K/uL) Final RBC 02/22/2023 08:24:51 4.61 4.50-5.25 (M/uL) Final Hemoglobin 02/22/2023 08:24:51 13.2 Below low normal 14 .0-16.8 (g/dL) Final HCT 02/22/2023 08:24:51 40.5 40.0-48.4 (%) Final MCV 02/22/2023 08:24:51 87.9 82.0-99.5 (fL) Final MCH 02/22/2023 08:24:51 28.6 27.0-34.0 (pg) Final MCHC 02/22/2023 08:24:51 32.6 32.0-36.0 (g/dL) Final RDW 02/22/2023 08:24:51 14.1 11.5-15.5 (%) Final Platelets 02/22/2023 08:24:51 241 140-400 (K /uL) Final MPV 02/22/2023 08:24:51 10.7 6.6-11.1 ( fL) Final Performing Location [facility]ORY [facility] [place] [address] [place] [address]
--- OUTSIDE RECORDS SUMMARY | 2023-04-03 03:04 | External Medical Summary | Summary of Care ---
Author Name Unknown Organization [facility] Address [address] [place] [address] Phone [phone] Care Team Providers Care Box Toe Maker Name Role Phone Adam Siddiqi MD Primary Care Provider + Reason for Visit * Reason Comments Follow Up F/U DIL/OCT OU * Precert (Within 10 days (routine)) - Authorized Specialty Diagnoses / Procedures Referred By Luly covarrubias Referred To Contact Ophthalmology Diagnoses Exudative age-related macular degeneration, right eye, with active choroidal neovascularization (HCC) Procedures OK AFLIBERCEPT INJECTION OK INTRAVITREAL NJX PHARMACOLOGIC AGT SPX Gregor Solorzano DO [address] [place] [address] Referral ID Status Reason Start Date Expiration Date V isits Requested Visits Authorized [id number] Authorized Precert 08/31/2022 03/04/2099 [id number] Encounter Details Date Type Department Care Team (Late st Contact Info) Description 03/12/2023 8:30 AM EST Office Visit Ophthalmology, [facility] [address] [place] [address] Gregor Solorzano DO [address] [place] [address] Exudative age-related macular degeneration of right eye with active choroidal neovascularization (HCC)*; Intermediate stage nonexudative age-related macular degeneration of left eye; Type 2 diabetes mellitus with hemoglobin A1c goal of less than 7.0% (HCC) Allergies Active Allergy Reactions Criticality Noted Date Comments Amoxicillin-Pot Clavulanate Nausea/vomiting 12/31/2018 Penicillins Other (Please comment) High 04/18/2006 "tongue gets bubbly" Last had it ampicillin 1994 documented as of this encounter (statuses as of 03/12/2023) Medications Medication Sig Dispensed Refills Start Date [...] as of this encounter (statuses as of 03/12/2023) Active Problems Problem Noted Date Diagnosed Date [...] of skin cancer 04/03/2017 Overview: SCC right zoroastrian - 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 [...] as of this encounter (statuses as of 03/12/2023) Resolved Problems Problem Noted Date Diagnosed Date [...] from 1994 Echo 06/06/04 35-40% Mixed dyslipidemia 04/18/200602/16/ 9 Overview: Per Lipid Taxonomy. Actinic keratosis 04/18/2006 11/14/2016 Overview: Sees derm documented as of this encounter (statuses as of 03/12/2023) Immunizations Name Administration Dates Next Due COVID-19 mRNA, LNP-s, No Pre serve, 2-Dose Series ([employer]) 05/11/2020,04/13/2020 Pneumococcal Conjugate Vacc, 13 Valent (Prevnar) [...] on file documented as of this encounter Progress Notes * Gregor Solorzano, - 03/12/2023 8:30 AM EST [facility] [place] Nursing notes reviewed. Eye vitals reviewed. Mood and Affect: normal HPI: Janis Mckeon is a 82 year old male who presents for evaluation of AMD Base Eye Exam Visual Acuity (Snellen - Linear) Right Left Dist cc 20/50 -1 20/25 -2 Dist ph cc 20/25 -1 Correction: Glasses Tonometry (Tonopen, 8:35 AM) Right Left Pressure 12 14 Pupils Pupils APD Right PERRL None Left PERRL None Visual Apodaca (Counting fingers) Right Left Full Full Extraocular Movement Right Left Full, Ortho Full, Ortho Neuro/Psych Oriented x3: Yes Mood/Affect: Normal Dilation Both eyes: 0.5% Proparacaine @ 8:35 AM Dilation #2 Both eyes: 1.0% Mydriacyl, 2.5% Phenylephrine @ 8:35 AM Dilation Comments Patient cautioned that effects of dilation may last 2-7 hours dependant upon individual reaction. It was discussed that driving while dilated is not recommended. Strabismus Exam Correction: sc Observations: Ortho Distance Near Near +3DS N Bifocals cover/uncover, and alternate cover EXTERNAL: The ocular adnexae are unremarkable. SLE: Lids/Lashes: wnl OU Conjunctiva/Sclera: quiet OU Cornea: clear OU Anterior Chamber: deep and quiet OU Iris: normal OU; no NVI OU Lens: PCIOL OU; yag cap OD Dilated fundus exam OD: vitreous: clear optic nerve: 0.3, no edema/pallor/NVD macula: drusen, srheme--improved vessels: wnl periphery: wnl, no RT/RD Dilated fundus exam OS: 03/12/2023: vitreous: clear optic nerve: 0.3, no edema/pallor/NVD macula: drusen, rpe changes vessels: wnl periphery: wnl, no RT/RD OCT Interpretation: OD: PED w/ recurrent srfluid, srmounding--improved 9um, prior worse, prior improved 34um prior worse 54um prior improved, prior improved OS: 03/12/2023:drusen, no cme/srfluid A/P: 1. Age-Related Macular Degeneration OU OD: wet -Avastin 08/31/22, 06/29/22, 02/10/22, 12/09/21, 10/28/21, 09/29/21 -9 weeks--better at 9 weeks, worse at 9 and 11 weeks -Eylea OD 01/11/23, 11/02/2022 -9 weeks -on Eliquis and ASA OS: dry -recommend AREDS2 MVI as directed and Amsler grid qday 2. Posterior Vitreous Detachment OU -no RT/RD -advised to return to clinic if he should experience worsening or new floaters, flashes of light, ashadow in the periphery, or decrease in vision. 3. DM2 -diet controlled -no retinopathy -recommend HgbA1C <7, BP and lipid control. 4. Pseudophakia OU -stable I have provided a significant and separately identifiable visit with today's procedure because a medically necessary exam was performed on the eye that did not undergo the procedure. F/u 8-10 weeks, OCT OD Trevoradriana Fredy Solorzano, DO 0124 CC: Koko Hough, OD CC: PCP: Adam Siddiqi MD TIMEOUT PROCEDURE: correct patient identity-YES correct procedure and consent-YES verified side and site-YES correct patient position-YES all necessary equipment/prior studies present-YES reviewed special requirements of this patient-YES PROCEDURE: Intravitreal injection of Eylea (aflibercept) 2mg OD INFORMED CONSENT: Risks, benefits and alternatives have been discussed with the patient. Risks include, but are not limited to: retinal tears, detachments, hemorrhage, glaucoma, infection, cataracts, need for more procedures and the potential risk of arterial thromboembolic events following use of intravitreal VEGF inhibitors defined as nonfatal stroke, nonfatal myocardial infarction or vascular . Patient is aware of these risks and consents to the procedure. DESCRIPTION OF PROCEDURE: The procedure site was confirmed. Topical proparacaine was applied to the surface of the eye after which subconjunctival anesthetic was administered. The area was prepped in the standard aseptic manner with 5% Betadine solution. An eyelid speculum was placed and 2mg (0.05 ml) of Eylea was injected 3.75 mm posterior to the limbus into the midvitreous cavity with a 30 gauge short needle. The eye speculum was removed, Betadine was flushed from the eye and optic nerve perfusion was insured. The patient tolerated the procedure without difficulty and was given followup instructions and instructed to use ophthalmic ointment 3x/day as needed. Gregor Solorzano DO, performed the procedure in its entirety. documented in this encounter Nursing Notes * Isi Delarosa RN - 03/12/2023 9:00 AM EST Janis Mckeon to receive second Eylea 2mg Injection of the Right eye. Correct eye confirmed with patient and marked by Gregor Solorzano DO Eylea 2mg lot # [id number] Exp. Date: 05/2024 * Isi Delarosa RN - 03/12/2023 8:28 AM EST Janis Mckeon is a 82 year old year old male who presents for AMD OU. Last Office Visit: 01/11/2023 (in office), Visit date not found (telemedicine) Patient currently states no change in vision. Are you diabetic? No Do you drive? yes OCT image(s) of both eyes acquired and filed/scanned into chart. documented in this encounter Plan of Treatment Upcoming Encounters Date Type Department Care Team (Late st Contact Info) Description 05/15/2023 8:45 AM EDT Office Visit Ophthalmology, [facility] [address] [facility] [place] [address] Gregor Solorzano DO 132 [facility] [place] [address] 07/03/2023 1:00 PM EDT Office Visit General Internal Medicine [facility] [address] [facility] [place] [address] Adam Siddiqi MD [address] [facility] [place] [address] 09/03/2023 8:00 AM EDT Office Visit Cardiology, [facility] 132 [facility] [place] [address] Stephanie Gallo PA-C [address] [place] [address] Scheduled Orders Name Type Priority Associated Diagnoses Orde r Schedule RETINA SCAN DIAGNOSTIC IMAGE, POSTERIOR Procedures Routine Exudative age-related macular degeneration of right eye with active choroidal neovascularization (HCC) Ordered: 03/12/2023 Health Maintenance Due Date Last Done Comments [...] this encounter Medical Devices Implanted Type Area Endoscopy Specialty Technician Device Identifier Shelf Expiration Date Model / Serial / Lot Lens 21.0 Mx60 - [id number] - [id number] Implanted:Qty: 1 on 07/19/2015 by Florencio Roblero DO at OR [facility] Left: Eye [employer] LOMB : SURGICAL 08/02/2017 MX60-21.0 / [id number] / [id number] Lens 22.0 Mx60 - [id number] - [id number] Implanted:Qty: 1 on 08/23/2015 by Florencio Roblero DO at OR [facility] Right: Eye BAUSCH [employer] LOMB : SURGICAL 01/02/2018 MX60-22.0 / [id number] / [id number] documented as of this encounter Visit Diagnoses Diagnosis Exudative age-related macular degeneration of right eye with active choroidal neovascularization (HCC)- Primary Intermediate stage nonexudative age-related macular degeneration of left eye Type 2 diabetes mellitus with hemoglobin A1c goal of less than 7.0% (HCC) documented in this encounter Administered Medications Active Administered Medications - up to 3 most recent administrations Medication Order MAR Action Action Date Dose Rate Site Aflibercept (Eylea) intraviteal prefilled syringe 2 mg 2 mg, Intravitreal, PRN Other, Starting on Vanessa 11/02/22 at 0836, Until Sun11/02/23 at 0835, For 365 days Given 03/12/2023 9:01 AM EST 2 mg Eye Right Given 01/11/2023 8:46 AM EST 2 mg Ey e Right Given 11/02/2022 8:59 AM EDT 2 mg Ey e Right ROPivacaine (Naropin) inj 1.5 mg 1.5 mg, Injection, PRN Other, Starting on Vanessa 11/02/22 at 0836, Until Sun11/02/23 at 0835, For 365 days Given 03/12/2023 9:01 AM EST 1.5 mg Eye R ight Given 01/11/2023 8:45 AM EST 1.5 mg Ey e Right Given 11/02/2022 8:58 AM EDT 1.5 mg Ey e Right documented in this encounter Advance Directives Latest [...] and were consensually agreed upon. Care Teams Box Toe Maker Relationship Specialty Start Date End Date Adam Siddiqi MD [address] [facility] [place] [address] PCP - General Internal Medicine 08/15/20 documented as of this encounter
--- OUTSIDE RECORDS SUMMARY | 2023-04-03 03:04 | External Medical Summary ---
Author Name Unknown Address Unknown Organization K0G:[facility] [place] [address] - [address] [place] [address] Laboratory Report Ordering Provider Test Date Status DO BIRDSHELLEYTOMMY 02/22/2023 08:24:51 Final Observation Date Value Abnormality Reference (Units ) Status SYNC LEUKOCYTES IN BLOOD BY AUTOMATED COUNT 02/22/2023 08:24:51 9.74 4.00-10.80 (K/uL) Final Segs 02/22/2023 08:24:51 68.4 40.0-75.0 (%) Final Lymphs % 02/22/2023 08:24:51 17.2 Below low normal 18.0-42.0 (%) Final Monos 02/22/2023 08:24:51 11.0 1.0-11.0 (%) Final Eosinophils 02/22/2023 08:24:51 3.1 0.0-6.0 (%) Final Basos 02/22/2023 08:24:51 0.3 0.0-2.0 (%) Final Absolute Segs 02/22/2023 08:24:51 6.66 1.80-7.70 (K/uL) Final Lymphs, absolute 02/22/2023 08:24:51 1.68 1.00-4.80 (K/ul) Final Monos, Abs 02/22/2023 08:24:51 1.07 0.00-1.10 (K/uL) Final Eos, Abs 02/22/2023 08:24:51 0.30 0.00-0.70 (K/uL) Final Basos, Abs 02/22/2023 08:24:51 0.03 0.00-0.20 (K/uL) Final [facility] - [address] [place] [address]
--- OUTSIDE RECORDS SUMMARY | 2023-04-03 03:04 | External Medical Summary ---
Author Name Unknown Address Unknown Organization [id number]:[facility] [place] [address] - [address] [place] [address] Laboratory Report Ordering Provider Test Date Status ABDIFATAH PANG 03/26/2023 07:50:19 Final Observation Date Value Abnormality Reference (Units ) Status SYNC LEUKOCYTES IN BLOOD BY AUTOMATED COUNT 03/26/2023 07:50:19 11.32 Above high normal 4.00-10.80 (K/uL) Final Segs 03/26/2023 07:50:19 59.6 40.0-75.0 (%) Final Lymphs % 03/26/2023 07:50:19 26.2 18.0-42.0 (%) Final Monos 03/26/2023 07:50:19 9.6 1.0-11.0 (%) Final Eosinophils 03/26/2023 07:50:19 4.2 0.0-6.0 (%) Final Basos 03/26/2023 07:50:19 0.4 0.0-2.0 (%) Final Absolute Segs 03/26/2023 07:50:19 6.74 1.80-7.70 (K/uL) Final Lymphs, absolute 03/26/2023 07:50:19 2.97 1.00-4.80 (K/ul) Final Monos, Abs 03/26/2023 07:50:19 1.09 0.00-1.10 (K/uL) Final Eos, Abs 03/26/2023 07:50:19 0.48 0.00-0.70 (K/uL) Final Basos, Abs 03/26/2023 07:50:19 0.04 0.00-0.20 (K/uL) Final Performing Location [facility] - [address] [place] [address]
--- OUTSIDE RECORDS SUMMARY | 2023-04-03 03:04 | External Medical Summary ---
Author Name Unknown Address Unknown Organization K01:[facility] - [address] [place] [address] Laboratory Report Ordering Provider Test Date Status ABDIFATAH PANG 02/22/2023 08:24:51 Final Observation Date Value Abnormality Reference (Units ) Status Ferritin 02/22/2023 08:24:51 870 Above high normal 30 -400 (ng/mL) Final Performing Location LABORATORY [facility] - [address] [place] [address]
--- OUTSIDE RECORDS SUMMARY | 2023-04-03 03:04 | External Medical Summary | Summary of Care ---
Author Name Unknown Organization [facility] Address [address] [place] [address] Phone [phone] Care Team Providers Care Automatic Oven Operator Name Role Phone Adam Siddiqi MD Primary Care Provider + Reason for Visit * Reason Onset Date Comments Medication Question 03/08/2023 Encounter Details Date Type Department Care Team (Late st Contact Info) Description 03/08/2023 Telephone General Internal Medicine [facility] [place] [address] [place] [address] Adam Siddiqi MD [address] [place] [id number] Medication Question (/) Allergies Active Allergy Reactions Criticality Noted Date Comments Amoxicillin-Pot Clavulanate Nausea/vomiting 12/31/2018 Penicillins Other (Please comment) High 04/18/2006 "tongue gets bubbly" Last had it ampicillin 1995 documented as of this encounter (statuses as of 03/08/2023) Medications Medication Sig Dispensed Refills Start Date [...] as of this encounter (statuses as of 03/08/2023) Active Problems Problem Noted Date Diagnosed Date [...] of skin cancer 04/03/2017 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 Pt already using saline nasal mist. Recommend continuation and advised nasal gel may help with lubricating nasal passages better. Pt has Coricidin HBP maximum strength at home w/active ingredients of APAP, Chlorpheniramine and Dextromethorphan. Pt does not have fever or cough. Advised pt a plain non-drowsy antihistamine such asLoratadine or Zyrtec will help with runny nose. Thank you, Anel Granados, PharmD Clinical Pharmacist [facility] ([facility]) (formerly Telepharmacy) [phone] 03/08/2023, 9:07 AM * Telephone Encounter - Yen Ruiz CPhT - 03/08/2023 8:58 AM EST Patient calling to see what OTC meds he can take for a cold with his medications. Transfer to [facility]. Thank you, Yen Ruiz CPhT Income Tax Expert [facility] ([facility])(formerly telepharmacy) 03/08/2023,8:58 AM documented in this encounter Plan of Treatment Upcoming Encounters Date Type Department Care Team (Late st Contact Info) Description 03/12/2023 8:30 AM EST Office Visit Ophthalmology, [facility] [address] [place] [address] Gregor Solorzano DO [address] [place] [address] 07/03/2023 1:00 PM EDT Office Visit General Internal Medicine [facility] [address] [facility] [place], [place] [address] Adam Siddiqi MD [address] [facility] [place] [address] 09/03/2023 8:00 AM EDT Office Visit Cardiology, [facility] [address] [place] [address] Stephanie Gallo [facility]C [facility] [place] [address] Health Maintenance Due Date Last Done Comments [...] this encounter Medical Devices Implanted Type Area Electronic Plotting System Operator Device Identifier Shelf Expiration Date Model / Serial / Lot Lens 21.0 Mx60 - [id number] - [id number] Implanted:Qty: 1 on 07/19/2015 by Florencio Roblero DO at OR [facility] Left: Eye [employer] LOMB : SURGICAL 08/02/2017 MX60-21.0 / [id number] / [id number] Lens 22.0 Mx60 - [id number] - [id number] Implanted:Qty: 1 on 08/23/2015 by Florencio Roblero DO at OR [facility] Right: Eye BAUSCH & LOMB : SURGICAL 01/02/2018 MX60-22.0 / [id number] / [id number] documented as of this encounter Advance Directives [...] and were consensually agreed upon. Care Teams Automatic Oven Operator Relationship Specialty Start Date End Date Adam Siddiqi MD [address] [place] [address] PCP - General Internal Medicine 08/15/20 documented as of this encounter
--- OUTSIDE RECORDS SUMMARY | 2023-04-03 03:04 | External Medical Summary ---
Author Name Unknown Address Unknown Organization [id number]:[facility] [place] [address] [place] [address] Laboratory Report Ordering Provider Test Date Status ABDIFATAH PANG 03/26/2023 07:50:19 Final Observation Date Value Abnormality Reference (Units ) Status WBC, Total 03/26/2023 07:50:19 11.32 Above high normal 4 .00-10.80 (K/uL) Final RBC 03/26/2023 07:50:19 4.83 4.50-5.25 (M/uL) Final Hemoglobin 03/26/2023 07:50:19 13.6 Below low normal 14 .0-16.8 (g/dL) Final HCT 03/26/2023 07:50:19 43.4 40.0-48.4 (%) Final MCV 03/26/2023 07:50:19 89.9 82.0-99.5 (fL) Final MCH 03/26/2023 07:50:19 28.2 27.0-34.0 (pg) Final MCHC 03/26/2023 07:50:19 31.3 32.0-36.0 (g/dL) Final RDW 03/26/2023 07:50:19 14.4 11.5-15.5 (%) Final Platelets 03/26/2023 07:50:19 315 140-400 (K /uL) Final MPV 03/26/2023 07:50:19 10.6 6.6-11.1 ( fL) Final Performing Location [facility] [place] [address] [place] [address]
--- OUTSIDE RECORDS SUMMARY | 2023-04-03 03:05 | External Medical Summary ---
Author Name Unknown Address Unknown [id number] [facility] [address] [place] [address] Laboratory Report Ordering Provider Test Date Status ABDIFATAH PANG 01/19/2023 07:42:56 Final Observation Date Value Abnormality Reference (Units ) Status SYNC LEUKOCYTES IN BLOOD BY AUTOMATED COUNT 01/19/2023 07:42:56 17.40 Above high normal 4.00-10.80 (K/uL) Final Segs 01/19/2023 07:42:56 78.6 Above high normal 40.0-75.0 (%) Final Lymphs % 01/19/2023 07:42:56 13.0 Below low normal 18.0-42.0 (%) Final Monos 01/19/2023 07:42:56 7.6 1.0-11.0 (%) Final Eosinophils 01/19/2023 07:42:56 0.7 0.0-6.0 (%) Final Basos 01/19/2023 07:42:56 0.1 0.0-2.0 (%) Final Absolute Segs 01/19/2023 07:42:56 13.68 Above high normal 1.80-7.70 (K/uL) Final Lymphs, absolute 01/19/2023 07:42:56 2.26 1.00-4.80 (K/ul) Final Monos, Abs 01/19/2023 07:42:56 1.32 Above high normal 0.00-1.10 (K/uL) Final Eos, Abs 01/19/2023 07:42:56 0.12 0.00-0.70 (K/uL) Final Basos, Abs 01/19/2023 07:42:56 0.02 0.00-0.20 (K/uL) Final Performing Location [facility]ORY [facility] [place] [address] - [address] [place] [address]
--- OUTSIDE RECORDS SUMMARY | 2023-04-03 03:05 | External Medical Summary ---
Author Name Unknown Address Unknown Organization [id number]:LAB[facility]ATORY C - [address] [place] [address] Laboratory Report Ordering Provider Test Date Status ABDIFATAH PANG 01/19/2023 07:42:56 Final Observation Date Value Abnormality Reference (Units ) Status Iron 01/19/2023 07:42:56 69 45-176 (ug/dL) Final Iron-binding capacity 01/19/2023 07:42:56 220 Below low normal 250-425 (ug/dL) Final Transferrin Sat % 01/19/2023 07:42:56 31 15-55 (%) Final Performing Location LAB[facility]ATORY C - [address] [place] [address]
--- OUTSIDE RECORDS SUMMARY | 2023-04-03 03:05 | External Medical Summary | Summary of Care ---
Author Name Unknown Organization [facility] Address [address] [place] [address] Phone [phone] Care Team Providers Care Traffic Checker Name Role Phone Adam Siddiqi MD Primary Care Provider + Reason for Visit * Reason Onset Date Comments Medication Administration 01/19/2023 Flu an d/or Pneumo Inj Encounter Details Date Type Department Care Team (Late st Contact Info) Description 01/19/2023 8:40 AM EST Immunization Ancillary [facility] [address] [facility] [place] [address] [facility] Flu Shot Clinic [facility] [address] [place] [address] Need for prophylactic vaccination and inoculation against influenza* Allergies Active Allergy Reactions Criticality Noted Date Comments Amoxicillin-Pot Clavulanate Nausea/vomiting 12/31/2018 Penicillins Other (Please comment) High 04/18/2006 "tongue gets bubbly" Last had it ampicillin 1995 documented as of this encounter (statuses as of 01/19/2023) Medications Medication Sig Dispensed Refills Start Date [...] EVERY MORNING 90 Tablet 1 01/07/2023 Active predniSONE 20 MG Oral Tablet (Deltasone)Indicati ons:Acute neck pain Take 2 Tablets by mouth in the morning for 5 days. 10 Tablet 0 01/17/2023 01/22/2023 Active Hospital, Clinic, or Other Facility Administered [...] as of this encounter (statuses as of 01/19/2023) Active Problems Problem Noted Date Diagnosed Date [...] of skin cancer 04/03/2017 Overview: SCC right baptism - 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 [...] as of this encounter (statuses as of 01/19/2023) Resolved Problems Problem Noted Date Diagnosed Date [...] as of this encounter (statuses as of 01/19/2023) Immunizations Name Administration Dates Next Due COVID-19 mRNA, LNP-s, No Pre serve, 2-Dose Series ([employer]) 05/11/2020,04/13/2020 Pneumococcal Conjugate Vacc, 13 Valent (Prevnar) [...] on file documented as of this encounter Patient Instructions * Patient Instructions* Naz Bobo LPN - 01/19/2023 7:58 AM EST ~~PATIENT INSTRUCTIONS FOR FLU SHOT~~ Possible side effects of influenza vaccine, (flu shot), are usually mild and include: 1. Soreness or redness at injection site 2. Low grade fever 3. Body aches You may use Tylenol/Acetaminophen as needed for these symptoms. LET YOUR DOCTOR KNOW IMMEDIATELY IF YOU HAVE DIFFICULTY BREATHING OR SWALLOWING, EXPERIENCE ITCHINGOF FEET OR HANDS, HAVE SWELLING OF EYES, FACE OR INSIDE OF NOSE. documented in this encounter Progress Notes * Naz Bobo LPN - 01/19/2023 7:58 AM EST PRE - ADMINISTRATION DOCUMENTATION Are you experiencing any cold symptoms or fever? No Have you had Guillain-[place] Syndrome (an illness that causes paralysis) within the last 6 weeks? No Have you had the flu shot in the past? YES Have you ever had a reaction to the flu shot? No Naz Bobo LPN, 01/19/2023 7:58 AM Immunization Administration Documentation Time Out Procedure Performed: Yes Patient Identified (Ask Name/Date of ): Yes Does the patient have a fever greater than 101 degrees today? No Patient allergic to latex? No VFC Stock: No Immunization(s) verified: Yes, Immunization Name: Flu, VIS Sheet(s) given: Yes Verified Side and Site: Yes Verified Shot(s) with Parent(s)/Patient: Yes documented in this encounter Plan of Treatment Upcoming Encounters Date Type Department Care Team (Late st Contact Info) Description 02/22/2023 9:30 AM EST Office Visit Cardiology, [facility] [address] [place] [address] Zbigniew Jolley, DO [address] [place] [address] 03/12/2023 8:30 AM EST Office Visit Ophthalmology, [facility] [address] [place] [address] Gregor Solorzano, DO [address] [place] [address] 07/03/2023 1:00 PM EDT Office Visit General Internal Medicine [facility] [address] [facility] [place] [address] Adam Siddiqi MD [address] [facility] [place] [address] Health Maintenance Due Date Last Done Comments [...] this encounter Medical Devices Implanted Type Area Robotic Machine Tender Production Device Identifier Shelf Expiration Date Model / Serial / Lot Lens 21.0 Mx60 - [id number] - [id number] Implanted:Qty: 1 on 07/19/2015 by Florencio Roblero DO at OR [facility] Left: Eye BAUSCH [employer] LOMB : SURGICAL 08/02/2017 MX60-21.0 / [id number] / [id number] Lens 22.0 Mx60 - [id number] - [id number] Implanted:Qty: 1 on 08/23/2015 by Florencio Roblero DO at OR [facility] Right: Eye BAUSCH & LOMB : SURGICAL 01/02/2018 MX60-22.0 / [id number] / [id number] documented as of this encounter Visit Diagnoses Diagnosis Need for prophylactic vaccination and inoculation against influenza- Primary documented in this encounter Advance Directives Latest [...] and were consensually agreed upon. Care Teams Traffic Checker Relationship Specialty Start Date End Date Adam Siddiqi MD [address] [place] [address] PCP - General Internal Medicine 08/15/20 documented as of this encounter
--- OUTSIDE RECORDS SUMMARY | 2023-04-03 03:05 | External Medical Summary ---
Author Name Unknown Address Unknown Organization K01:[facility] - [address] [place] [address] Laboratory Report Ordering Provider Test Date Status ABDIFATAH PANG 01/19/2023 07:42:56 Final Observation Date Value Abnormality Reference (Units ) Status Ferritin 01/19/2023 07:42:56 815 Above high normal 30 -400 (ng/mL) Final Performing Location [facility] - [address] [place] [place] [address]
--- OUTSIDE RECORDS SUMMARY | 2023-04-03 03:05 | External Medical Summary | Summary of Care ---
Author Name Unknown Organization [facility] Address [address] [place] [address] Phone [phone] Care Team Providers Care Youth Specialist Name Role Phone Adam Siddiqi MD Primary Care Provider + Reason for Referral * Evaluate & Treat - Unlimited Visits (Within 10 days (routine)) - Authorized Specialty Diagnoses / Procedures Referred By Luly covarrubias Referred To Contact Physical Therapy / Physical Medicine And Rehab Diagnoses Acute neck pain Spasm of muscle Dulce Godfrey PA-C [address] [place] [id number] Referral ID Status Reason Start Date Expiration Date Visits Requested Visits Authorized [id number] Authorized Specialty Services Required 3 [phone] Question Answer Referral Priority Within 10 days (routine) Where should this appointment be scheduled? [facility] Reason for Visit * Reason Comments Acute Encounter Details Date Type Department Care Team ([facility] Contact Info) Description 01/17/2023 11:20 AM EST Office Visit Family Practice [address] [address] Dulce Godfrey PA-C [address] [place] [address] Acute neck pain*; Muscle spasms of neck Allergies Active Allergy Reactions Criticality Noted Date Comments Amoxicillin-Pot Clavulanate Nausea/vomiting 12/31/2018 Penicillins Other (Please comment) High 04/18/2006 "tongue gets bubbly" Last had it ampicillin 1994 documented as of this encounter (statuses as of 01/17/2023) Medications Medication Sig Dispensed Refills Start Date [...] as of this encounter (statuses as of 01/17/2023) Active Problems Problem Noted Date Diagnosed Date [...] of skin cancer 04/03/2017 Overview: SCC right advent - 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 [...] as of this encounter (statuses as of 01/17/2023) Resolved Problems Problem Noted Date Diagnosed Date [...] as of this encounter (statuses as of 01/17/2023) Immunizations Name Administration Dates Next Due COVID-19 [...] Sign Reading Time Taken Comments Blood Pressure 110/80 01/17/2023 10:55 AM EST Pulse 62 01/17/2023 10:55 AM EST Temperature 36 C (96.8 F) 01/17/2023 10: 55 AM EST Respiratory Rate 18 01/17/2023 10:5 5 AM EST Oxygen Saturation 98% 01/17/2023 10: 55 AM EST Inhaled Oxygen Concentration - - Weight 86.5 kg (190 lb 12.8 oz) 023 10:55 AM EST Height 175.3 cm (5' 9") 01/17/2023 10:5 5 AM EST Body Mass Index 28.18 01/17/2023 10:55 AM EST documented in this encounter Progress Notes * Dulce Godfrey PA-C - 01/17/2023 1:10 PM EST Images from the original note were not included. History of Present Illness Noe Mckeon is a 82 year old male that presents to the office regarding neck pain for 10 days. Patient stated last Sunday he woke up with neck pain. Pain is located left posterolateral neck with radiation towards the base of his neck. Pain worse with lateral rotation of neck, left lateral worse than right. Has also noticed decreased lateral rotation of neck. Has been using Ibuprofen as needed for pain. Also has used ice. Denied injury. Denied numbness, tingling and weakness. Physical Exam Vitals: 01/17/23 1055 Temp: 36 C (96.8 F) Pulse: 62 Resp: 18 SpO2: 98% BP: 110/80 BMI: 28.16 Physical Exam Vitals and nursing note reviewed. Constitutional: General: He is not in acute distress. Appearance: Normal appearance. He is not ill-appearing, toxic-appearing or diaphoretic. HENT: Head: Normocephalic and atraumatic. Eyes: General: No scleral icterus. Conjunctiva/sclera: Conjunctivae normal. Neck: Trachea: Trachea normal. Pulmonary: Effort: Pulmonary effort is normal. Musculoskeletal: Cervical back: Pain with movement and muscular tenderness (Left cervical paraspinal muscle tenderness) present. No spinous process tenderness. Decreased range of motion. Skin: General: Skin is warm and dry. Findings: No rash. Neurological: Mental Status: He is alert and oriented to person, place, and time. I have reviewed the following results: Hemoglobin A1C, CBC, BMP, and None Assessment and Plan Acute neck pain - predniSONE 20 MG Oral Tablet (Deltasone); Take 2 Tablets by mouth in the morning for 5 days. - PHYSICAL THERAPY REFERRAL OP - Would advise against muscle relaxer due to cardiac history - Highly encouraged PT - Advised against ibuprofen and NSAIDS - Tylenol for pain - Advised to monitor glucose. If goes to high, stop prednisone. If elevated heart rate, stop prednisone. - Tolerated prednisone taper in 2019 and 2018. Muscle spasms of neck - PHYSICAL THERAPY REFERRAL OP Wrap-Up Follow Up: Return if symptoms worsen or fail to improve, for as scheduled. | For: as scheduled | Check-out note: PT Time: I spent a total of 20-29 minutes (exact time 20 mins) on the date of service in preparation, delivery, and documentation of the care provided to Janis Mckeon excluding any time spent in the performance of separately billed services. documented in this encounter Nursing Notes * Chanel Hightower LPN - 01/17/2023 10:54 AM EST The patient has been properly identified by confirmation of name and date of . Chief Complaint Patient presents with Acute Pt here for neck pain, stiff neck. Started Sunday last week 01/08. Pain is about the same as when it first started. Scheduled for flu shot Sunday. documented in this encounter Plan of Treatment Upcoming Encounters Date Type Department Care Team (Late st Contact Info) Description 02/22/2023 9:30 AM EST Office Visit Cardiology, [facility] [address] [place] [address] Zbigniew Jolley, DO [address] [place] [address] 03/12/2023 8:30 AM EST Office Visit Ophthalmology, [facility] [address] [place] [address] Gregor Solorzano, DO [address] [place] [address] 07/03/2023 1:00 PM EDT Office Visit General Internal Medicine [facility] [place] [address] [facility] [place] [address] Adam Siddiqi MD 200 [facility] [place] [address] Scheduled Referrals Name Type Priority Associated Diagnoses Orde r Schedule PHYSICAL THERAPY REFERRAL OP Referral Within 10 days (routine) Acute neck pain Muscle spasms of neck Ordered: 01/17/2023 Health Maintenance Due Date Last Done Comments Hepatitis B (1 of 3 - Risk 3-dose series) 2000 COVID-19 Vaccine (3 - season) 2022 05/11/2020, 04/13/2020 Influenza Vaccine (FLU shot) (#1) 2022 12/05/2021, 11/18/2019, 12/23/2018, Additional history exists Depression Screening 04/18/2023 04/18/2022 GFR 06/06/2023 06/05/2022, [...] 01/07/2015 Zoster Vaccines Completed 02/02/2020, 11/04, 12/03/2014 GARDASIL-HPV IMMUNIZATION SERIES Aged Out No longer eligible based on patient's age to complete this topic MENINGOCOCCAL (MENACTRA/MENVEO) Aged Out No longer eligible based on patient's age to complete this topic documented as of this encounter Medical Devices Implanted Type Area Electromechanical Assembly Technician Device Identifier Shelf Expiration Date Model / Serial / Lot Lens 21.0 Mx60 - [id number] - [id number] Implanted:Qty: 1 on 07/19/2015 by Florencio Roblero DO at OR [facility] Left: Eye BAUSCH [employer] LOMB : SURGICAL 08/02/2017 MX60-21.0 / [id number] / [id number] Lens 22.0 Mx60 - [id number] - [id number] Implanted:Qty: 1 on 08/23/2015 by Florencio Roblero DO at OR [facility] Right: Eye BAUSCH & LOMB : SURGICAL 01/02/2018 MX60-22.0 / [id number] / [id number] documented as of this encounter Visit Diagnoses Diagnosis Acute neck pain- Primary Cervicalgia Muscle spasms of neck Spasm of muscle documented in this encounter Advance Directives Latest [...] and were consensually agreed upon. Care Teams Youth Specialist Relationship Specialty Start Date End Date Adam Siddiqi MD 200 [place] [address] PCP - General Internal Medicine 08/15/20 documented as of this encounter
--- OUTSIDE RECORDS SUMMARY | 2023-04-03 03:05 | External Medical Summary | Summary of Care ---
Author Name Unknown Organization [facility] Address [address] [place] [address] Phone [phone] Care Team Providers Care Member Of Parliament Name Role Phone Adam Siddiqi MD Primary Care Provider + Reason for Visit * Reason Comments Outpatient Testing Encounter Details Date Type Department Care Team (Late st Contact Info) Description 01/19/2023 7:50 AM EST Laboratory Laboratory, [facility] [address] [facility] [place] [address] [facility] [address] [facility] [place] [address] Elevated ferritin Allergies Active Allergy Reactions Criticality Noted Date [...] of skin cancer 04/03/2017 Overview: 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 [...] mRNA, LNP-s, No Pre serve, 2-Dose Series ([employer]) 05/11/2020,04/13/2020 Pneumococcal Conjugate Vacc, 13 Valent (Prevnar) [...] Description 01/19/2023 8:40 AM EST Immunization Ancillary [facility] [address] [place] [address] [facility] [address] [place] [address] Arrived 02/22/2023 9:30 AM EST Office Visit Cardiology, [facility] [address] [place] [address] Zbigniew Jolley, DO [address] [place] [address] 03/12/2023 8:30 AM EST Office Visit Ophthalmology, [facility] [address] [place] [address] Gregor Solorzano, DO [address] [place] [address] 07/03/2023 1:00 PM EDT Office Visit [facility] [place] [address] [place] [address] Adam Siddiqi MD [address] [place] [address] Pending Results Name Type Priority Associated Diagnoses Date /Time IRON SCREEN, INCLUDING TIBC Lab Routine Elevated ferritin 01/19/2023 7:42 AM EST FERRITIN Lab Routine Elevated ferritin 01/19/2023 7:42 AM EST Health Maintenance Due Date Last Done Comments Hepatitis B (1 of 3 - Risk 3-dose series) 2000 COVID-19 Vaccine (3 - 2022-24 season) 2022 05/11/2020, 04/13/2020 Influenza Vaccine (FLU [...] this encounter Medical Devices Implanted Type Area Cyber Security Analyst Device Identifier Shelf Expiration Date Model / Serial / Lot Lens 21.0 Mx60 - [id number] - [id number] Implanted:Qty: 1 on 07/19/2015 by Florencio Roblero DO at OR [facility] Left: Eye [employer] : SURGICAL 08/02/2017 MX60-21.0 / [id number] / [id number] Lens 22.0 Mx60 - [id number] - [id number] Implanted:Qty: 1 on 08/23/2015 by Florencio Roblero DO at OR [facility] Right: Eye [employer] : SURGICAL 01/02/2018 MX60-22.0 / [id number] / [id number] documented as of this encounter Procedures Procedure Name Priority Date/Time Associated Diagnosis Comments DIFFERENTIAL, AUTOMATED Routine 01/19/2023 7:42 AM EST Elevated ferritin CBC Routine 01/19/2023 7:42 AM EST Elevated ferritin CBC Routine 01/19/2023 7:42 AM EST Elevated ferritin documented in this encounter Results * (ABNORMAL) DIFFERENTIAL, AUTOMATED (01/19/2023 7:42 AM EST) WBC 17.40(H) 4.00 - 10.80 K/uL 01/19/2023 7:47 AM EST [facility] Neutrophils % 78.6(H) 40.0 - 75.0 % 01/19/2023 7:47 AM EST [facility] Lymphocytes % 13.0(L) 18.0 - 42.0 % 01/19/2023 7:47 AM EST [facility] Monocytes % 7.6 1.0 - 11.0 % 01/19/2023 7:47 AM EST [facility] Eosinophils % 0.7 0.0 - 6.0 % 01/19/2023 7:47 AM EST [facility] Basophils % 0.1 0.0 - 2.0 % 01/19/2023 7:47 AM EST [facility] Absolute Neutrophils 13.68(H) 1.80 - 7.70 K/uL 01/19/2023 7:47 AM EST [facility] Absolute Lymphocytes 2.26 1.00 - 4.80 K/ul 01/19/2023 7:47 AM EST [facility] Absolute Monocytes 1.32(H) 0.00 - 1.10 K/uL 01/19/2023 7:47 AM EST [facility] Absolute Eosinophils 0.12 0.00 - 0.70 K/uL 01/19/2023 7:47 AM EST [facility] Absolute Basophils 0.02 0.00 - 0.20 K/uL 01/19/2023 7:47 AM EST [facility] Blood Venous blood specimen / Unknown Venipuncture / Unknown 01/19/2023 7:42 AM EST 01/19/2023 7:42 AM EST Adam Siddiqi MD LAB BLOOD [facility] [place] [facility] [place] [address] * (ABNORMAL) CBC (01/19/2023 7:42 AM EST) WBC 17.40(H) 4.00 - 10.80 K/uL 01/19/2023 7:47 AM EST [facility] RBC 4.69 4.50 - 5.25 M/uL 01/19/2023 7:47 AM EST [facility] HGB 13.4(L) 14.0 - 16.8 g/dL 01/19/2023 7:47 AM EST [facility] HCT 41.6 40.0 - 48.4 % 01/19/2023 7:47 AM EST [facility] MCV 88.7 82.0 - 99.5 fL 01/19/2023 7:47 AM EST [facility] [place] [facility] MCH 28.6 27.0 - 34.0 pg 01/19/2023 7:47 AM EST [facility] MCHC 32.2 32.0 - 36.0 g/dL 01/19/2023 7:47 AM EST [facility] RDW 13.8 11.5 - 15.5 % 01/19/2023 7:47 AM EST [facility] PLT 297 140 - 400 K/uL 01/19/2023 7:47 AM EST [facility] MPV 9.5 6.6 - 11.1 fL 01/19/2023 7:47 AM EST [facility] [place] [facility] Blood Venous blood specimen / Unknown Venipuncture / Unknown 01/19/2023 7:42 AM EST 01/19/2023 7:42 AM EST Adam Siddiqi MD LAB BLOOD [facility] [place] [address] [facility] [place] [address] documented in this encounter Visit Diagnoses Diagnosis Elevated ferritin Other abnormal blood chemistry documented in this encounter Advance Directives Latest [...] and were consensually agreed upon. Care Teams Member Of Parliament Relationship Specialty Start Date End Date Adam Siddiqi MD [address] [facility], [place] [address] PCP - General Internal Medicine 08/15/20 documented as of this encounter
--- OUTSIDE RECORDS SUMMARY | 2023-04-03 03:05 | External Medical Summary ---
Author Name Unknown Address Unknown Organization [id number] [place] [address] Laboratory Report Ordering Provider Test Date Status ABDIFATAH PANG 01/19/2023 07:42:56 Final Observation Date Value Abnormality Reference (Units ) Status WBC, Total 01/19/2023 07:42:56 17.40 Above high normal 4 .00-10.80 (K/uL) Final RBC 01/19/2023 07:42:56 4.69 4.50-5.25 (M/uL) Final Hemoglobin 01/19/2023 07:42:56 13.4 Below low normal 14 .0-16.8 (g/dL) Final HCT 01/19/2023 07:42:56 41.6 40.0-48.4 (%) Final MCV 01/19/2023 07:42:56 88.7 82.0-99.5 (fL) Final MCH 01/19/2023 07:42:56 28.6 27.0-34.0 (pg) Final MCHC 01/19/2023 07:42:56 32.2 32.0-36.0 (g/dL) Final RDW 01/19/2023 07:42:56 13.8 11.5-15.5 (%) Final Platelets 01/19/2023 07:42:56 297 140-400 (K /uL) Final MPV 01/19/2023 07:42:56 9.5 6.6-11.1 ( fL) Final Performing Location [facility] [place] [address]
--- OUTSIDE RECORDS SUMMARY | 2023-04-03 03:05 | External Medical Summary | Summary of Care ---
Author Name Unknown Organization [facility] Address [address] [place] [address] Phone [phone] Care Team Providers Care Position Classification Manager Name Role Phone Adam Gardiner MD Primary Care Provider + Reason for Referral * (Within 10 days (routine)) - Authorized Specialty Diagnoses / Procedures Referred By Contac t Referred To Contact Radiology Diagnoses Breast pain, right Procedures US BREAST LIMITED RIGHT Adam Gardiner MD [address] [place] [address] Referral ID Status Reason Start Date Expiration Date V isits Requested Visits Authorized [id number] Authorized 12/22/2022 999 999 Reason for Visit * Reason Comments Follow Up 6 month follow up. P merry presents with concerns for right chest pain only if he touches it or someone else touches. He states when he applies pressure to this area his pain increases to a 4 out of 10. Denied any other concerns. Encounter Details Date Type Department Care Team (Late st Contact Info) Description 12/22/2022 9:00 AM EDT Office Visit General Internal Medicine [facility] [address] [place] [address] Adam Gardiner MD [address] [place] [address] Type 2 diabetes mellitus with hemoglobin A1c goal of less than 8.0% (HCC)*; DM type 2 nursing care encounter (HCC); HTN, goal below 140/90; Hypertensive heart disease with chronic systolic congestive heart failure (HCC); Paroxysmal atrial fibrillation (HCC); Elevated ferritin; Leukocytosis, unspecified type; Breast pain, right Allergies Active Allergy Reactions Criticality Noted Date Comments Amoxicillin-Pot Clavulanate Nausea/vomiting 12/31/2018 Penicillins Other (Please comment) High 04/18/2006 "tongue gets bubbly" Last had it ampicillin 1995 documented as of this encounter (statuses as of 01/21/2023) Medications Medication Sig Dispensed Refills Start Date End Date Status ASPIRIN 81 MG PO TABSIndications:M ixed dyslipidemia one tab by mouth daily 34 0 04/18/2006 Active OMEGA-3 FISH OIL 1000 MG PO CAPSIndications:O ld myocardial infarct,Mixed dyslipidemia Take one capsule by mouth twice a day 60 5 02/08/2009 Active Additional Information Patient not taking.Reported on 01/11/2023 Acetaminophen 500 MG Oral Tablet (Tylenol)Indicati ons:Acute left-sided low back pain without sciatica Take 2 Tablets by mouth every 8 hours as needed for Pain, Severe. 100 Tab 0 11/24/2020 Active Spironolactone 25 MG Oral Tablet (Aldactone)Indica tions:HTN, goal below 140/90 Take 0.5 Tablets by mouth in the morning. 30 Tablet 11 05/02/2022 Active Furosemide 20 MG Oral Tablet (Lasix)Indication s:Heart failure, systolic, due to CAD Take 1 Tablet by mouth in the morning. 90 Tablet 3 08/14/2022 Active Lisinopril 2.5 MG Oral Tablet (Prinivil)Indicat ions:HTN, goal below 140/90 Take 1 Tablet by mouth in the morning. In the morning.. 90 Tablet 1 08/14/2022 Active Eliquis 5 MG Oral Tablet (Apixaban)Indicat ions:New onset atrial fibrillation (HCC) TAKE ONE TABLET BY MOUTH TWICE DAILY 180 Tablet 3 09/06/2022 Active PreserVision AREDS 2+Multi Vit Oral Capsule Take by mouth. 0 Active Tamsulosin HCl 0.4 MG Oral Capsule (Flomax)Indicatio ns:BPH with obstruction/lower urinary tract symptoms TAKE 1 CAPSULE BY MOUTH AT BEDTIME 30 Capsule 5 10/31/2022 Active Finasteride 5 MG Oral Tablet (Proscar) Take 1 Tablet by mouth in the morning. 90 Tablet 1 12/18/2022 Active Atorvastatin Calcium 80 MG Oral Tablet (Lipitor) Take 1 Tablet by mouth in the morning. In the morning.. 90 Tablet 0 12/18/2022 Active Polyethylene Glycol 3350 17 GM/SCOOP Oral PowderIndications :Constipation, unspecified constipation type Take 17 g by mouth as needed for Constipation. Dissolve one heaping tablespoon in 8 ounces of water or juice. 17 g 0 11/24/2020 12/23/19 23 Discontinued Metoprolol Succinate ER 50 MG Oral Tablet Extended Release 24 Hour (toPROL XL)Indications:Ol d myocardial infarct,Ischemic cardiomyopathy,He art failure, systolic, due to CAD Take 1 Tablet by mouth in the morning. 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 [...] as of this encounter (statuses as of 01/21/2023) Resolved Problems Problem Noted Date Diagnosed Date [...] as of this encounter (statuses as of 01/21/2023) Immunizations Name Administration Dates Next Due COVID-19 [...] Sign Reading Time Taken Comments Blood Pressure 132/70 12/22/2022 8:52 AM EDT Pulse 52 12/22/2022 8:52 AM EDT Temperature 35.6 C (96.1 F) 12/22/2022 8:52 AM ED T Respiratory Rate - - Oxygen Saturation 100% 12/22/2022 8:52 AM EDT Inhaled Oxygen Concentration - - Weight 86.9 kg (191 lb 8 oz) 12/22/2022 8:52 AM EDT Height 175.3 cm (5' 9") 12/22/2022 8:52 AM EDT Body Mass Index 28.28 12/22/2022 8:52 AM EDT documented in this encounter Patient Instructions * Patient Instructions* Yoseph Winkler CMA - 12/22/2022 8:50 AM EDT Diabetes: Keeping Feet Healthy Inspect your feet every day for signs of a problem. Diabetes can damage nerves in your feet and cause neuropathy. This condition makes it hard for you to feel injuries or sore spots. Diabetes can also change blood flow, making it harder for small problems, like a blister, to heal properly. In fact, minor injuries can quickly become serious infections that send you to the hospital. Practice self-care to protect your feet and keep them healthy. Take Special Care Inspect your feet daily for problems such as redness, blisters, cracks, dry skin, or numbness. Use a mirror to see the bottoms of your feet. Or, ask for help. Manage your diabetes. Monitor and control your blood sugar. Take all your medications as prescribed. Avoid walking barefoot, even indoors. Wash your feet with warm water and mild soap. Dry well, especially between toes. Dont treat corns or calluses yourself. Talk to your doctor or oil developer (a doctor who specializes in foot care) if you need assistance trimming your toenails. Use moisturizing cream or lotion if you have dry skin, but dont use it between toes. Dont use heating pads on your feet. If you have neuropathy, you could get a burn and not feel it. Stop smoking. Smoking restricts blood flow and can make it harder for wounds to heal. Have Regular Checkups Foot problems can develop quickly. So be sure to follow your healthcare teams schedule for regular checkups. During office visits, take off your shoes and socks as soon as you get in the exam room. Ask your healthcare provider to examine your feet for problems. This will make it easier to find and treat small skin irritations before they get worse. Regular checkups can also help keep track of the blood flow and feeling in your feet. If you have neuropathy, you may need to have checkups more often. Wear Proper Footwear Wearing proper footwear is very important. If areas of your feet have been damaged by too much pressure, your healthcare provider may recommend changing your footwear. In some cases, avoiding high heels or tight work boots may be all thats needed. Or, your healthcare provider may recommend special shoes or custom inserts. These help protect your feet and keep existing irritations from getting worse. If you need special footwear, ask your healthcare provider if you qualify for [employer] diabetic shoe program. Make Sure Shoes and Socks Fit Any pair of shoes--new or old--should feel comfortable as soon as you put them on. There shouldnt be any rubbing when you walk. Wear the right shoe for any activity. For instance, a running shoe is designed to keep your feet injury-free while jogging. Buy shoes at the end of the day, when your feet are larger. Make sure they provide support without feeling too loose. Make sure your socks fit, t oo. Wear soft, seamless, well-padded socks for activity. Cotton or microfiber socks are best to help to absorb sweat. To protect your feet, avoid shoes that are open-toed or open-heeled. If you have questions about what kinds of shoes and socks are best, talk to your healthcare team. Get Regular Exercise Regular exercise improves blood flow in your feet. It also increases foot strength and flexibility.Gentle exercises, like walking or riding a stationary bicycle, are best. You can also do special foot exercises. Just be sure to talk with your healthcare provider before starting any exercise program. Also mention if any exercise causes pain, redness, or other signs of foot problems. Note: If you have any kind of break in the skin of your foot or ankle, keep the area clean. Then call your doctor--especially if the area doesnt appear to be healing. [phone] The [email or web address], [address] [place] [address]. All rights reserved. This information is not intended as a substitute for professional medical care. Always follow your healthcare professional's instructions. documented in this encounter Progress Notes * Adam Gardiner MD - 12/22/2022 9:19 AM EDT Chief Complaint Patient presents with Follow Up 6 month follow up. Patient presents with concerns for right chest pain only if he touches it or someone else touches. He states when he applies pressure to this area his pain increases to a 4 out of 10. Denied any other concerns. SUBJECTIVE: Janis Mckeon is a 82 year old male with PMH as below who presents for follow up htn, lipids, DM. No cp, sob, llanos. Mood is good no recent infections. He notes pain right breast for 3 months no trauma, or masses, but hurts right breast w/o masses. No N/V/D. No bleeding. Sees cardiology for atrial fib, cardiomyopathy Patient Active Problem List Diagnosis Code Old [...] with obstruction/lower urinary tract symptoms N40.1, N13.8 Current Outpatient Medications Medication Sig Dispense Refill ASPIRIN 81 MG PO TABS one tab by mouth daily 34 0 OMEGA-3 FISH OIL 1000 MG PO CAPS Take one capsule by mouth twice a day 60 5 Spironolactone 25 MG Oral Tablet (Aldactone) Take 0.5 Tablets by mouth in the morning. 30 Tablet 11 Metoprolol Succinate ER 50 MG Oral Tablet Extended Release 24 Hour (toPROL XL) Take 1 Tablet by mouth in the morning. 90 Tablet 1 Furosemide 20 MG Oral Tablet (Lasix) Take [...] morning. In the morning.. 90 Tablet 0 Acetaminophen 500 MG Oral Tablet (Tylenol) Take 2 Tablets by mouth every 8 hours as needed for Pain, Severe. 100 Tab 0 Current Facility-Administered Medications Medication Dose Route Frequency Provider Last Rate Last Admin Aflibercept (Eylea) intraviteal prefilled syringe 2 mg 2 mg Intravitreal PRN Gregor Daniel Cessna, DO 2 mg at 11/02/22 0859 ROPivacaine (Naropin) inj 1.5 mg 1.5 mg Injection PRN Gregor Daniel Cessna, DO 1.5 mg at 11/02/22 0858 Review of patient's allergies indicates: Allergen Reactions Penicillins Other (Please comment) "tongue gets bubbly" Last had it ampicillin 1994 Augmentin [Amoxicillin-Pot Clavulanate] Nausea/vomiting Health Maintenance Due Topic Date Due Influenza Vaccine (FLU shot) (1) 11/03/2022 COVID-19 Vaccine ( season) 2022 ROS: CONSTITUTIONAL: No change in weight, No weakness, and No fevers, sweats, or chills EYE: No recent significant change in vision and No eye pain, redness, discharge EARS: No ear pain, No drainage, No tinnitus or vertigo, and No recent change in hearing PULMONARY: No cough, sputum, or hemoptysis, No wheezing, No rales, No shortness of breath, and No recent change in breathing CARDIOVASCULAR: No shortness of breath, No dyspnea on exertion, No orthopnea, No paroxysmal nocturnal dyspnea, No edema, No palpitations, and No syncope GASTROINTESTINAL: No abdominal pain, No change in bowel habits, No significant heartburn, No significant change in appetite, and No nausea, vomiting, diarrhea, or constipation ALL OTHER SYSTEMS NEGATIVE I reviewed social, PMH, PSH, and family history and updated where needed. 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 Tobacco Use Smoking status: Former Years: 15.00 Types: Cigarettes Quit date: 03/05/1994 Years since quittin.8 Smokeless tobacco: Never Vaping Use Vaping Use: Never used Substance and Sexual Activity Alcohol use: Yes Comment: rare Drug use: No Sexual activity: Not on file Other Topics Concern Not on file Social History Narrative Not on file Social Determinants of Health Financial Resource Strain: Not on file Food Insecurity: No Food Insecurity Worried About Running Out of Food in the Last Year: Never true Ran Out of Food in the Last Year: Never true Transportation Needs: Not on file Physical Activity: Not on file Stress: Not on file Social Connections: Not on file Intimate Partner Violence: Not on file Housing Stability: Not on file 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 COLONOSCOPY 09/13/2000 adenomatous polyps, repeat in3-5 years COLONOSCOPY 03/28/2005 tubular adenoma, repeat in 3-5 years. COLONOSCOPY THRU STOMA, W/BIOPSY 01/17/2010 adenomatous polyp, repeat in 5 years COLONOSCOPY, DIAGNOSTIC (RECTUM) 07/07/2015 adenomatous & hyperplastic polyps, repeat 5 yrs/[facility] COLONOSCOPY, DIAGNOSTIC (RECTUM) 06/02/2021 benign adenomatous polyp / [facility] INFORMATION s/p BCC excision. INFORMATION pyloric stenosis surgery at a baby INJECT DX/THER SUBSTANCE INTERLAMINAR LUMBAR/SACRAL W IMAGE GUIDE 06/20/2018 INJECTION SPINE LUMBAR OR SACRAL performed by Rahul Huerta Cousins, DO at OR [facility] INJECTION OF EYE DRUG Right 09/29/2021 # [...] 11/02/2022 # 1 Eylea OD, Dr. Solorzano OTHER (INFORMATION) ACT 112 SIGNED -- [facility] (09-29-2021) OTHER (INFORMATION) Bilateral AVASTIN OU CONSENT DR. SOLORZANO/WOJCIECH EXP. 09/29/22 OTHER (INFORMATION) Bilateral EYLEA OU CONSENT DR. SOLORZANO/WOJCIECH EXP. 11/03/23 REMOVAL OF APPENDIX Appendectomy at age 12 REMOVE CATARACT, INSERT LENS PROSTH Left 07/19/2015 EXTRACAPSULAR CATARACT REMOVAL WITH INTRAOCULAR LENS performed by Florencio Roblero DO at OR [facility] REMOVE CATARACT, INSERT LENS PROSTH Right 08/23/2015 EXTRACAPSULAR CATARACT REMOVAL WITH INTRAOCULAR LENS performed by Florencio Roblero DO at OR [facility] Family History Problem Relation Age of Onset [...] family history Hypertension No significant family history OBJECTIVE: PHYSICAL EXAM: BP 132/70 | Pulse 52 | Temp 35.6 C (96.1 F) | Ht 1.753 m (5' 9") | Wt 86.9 kg (191 lb 8 oz) | SpO2 100% | BMI 28.28 kg/m | BSA 2.06 m General: alert, healthy, and no distress Head: Normocephalic, No masses, lesions, or abnormalities Eye Exam: conjunctiva are pink and non-injected, sclera clear Ears: External ears normal, Canals clear, TM's Normal Heart: regular rate & rhythm, no murmur, no gallops, PMI non-displaced, S-1 normal, and S-2 normal Lungs: normal respiratory rate and rhythm, lungs clear to auscultation Extremities: no edema, no clubbing, no cyanosis Neuro Exam: alert with fluent speech, gait normal Breasts: +tender right breast to palpation, no discrete mass felt, no nipple discharge, no skin changes or right axillary adenopathy Psych: normal affect, no flight of ideas or tangential thought, good eye contact, no pressured speech I reviewed last cbc, iron, ferritin, a1c ASSESSMENT: E11.9 Type 2 diabetes mellitus with hemoglobin A1c goal of less than 8.0% ([facility]) (primary encounter diagnosis) E11.9 DM type 2 nursing care encounter ([facility]) I10 HTN, goal below 140/90 I11.0,I50.22 Hypertensive heart disease with chronic systolic congestive heart failure (HCC) I48.0 Paroxysmal atrial fibrillation ([facility]) R79.89 Elevated ferritin D72.829 Leukocytosis, unspecified type N64.4 Breast pain, right PLAN: Type 2 diabetes mellitus with hemoglobin A1c goal of less than 8.0% ([facility]) (Primary) - COMPREHENSIVE METABOLIC PANEL; Future; Expected date: 06/23/2023 - LIPID PANEL WITH DIRECT LDL IF TG IS HIGH; Future; Expected date: 06/23/2023 - HEMOGLOBIN A1C; Future; Expected date: 06/23/2023 Cont diet DM type 2 nursing care encounter ([facility]) - DIABETES FOOT EXAM HTN, goal below 140/90 - COMPREHENSIVE METABOLIC PANEL; Future; Expected date: 06/23/2023 - LIPID PANEL WITH DIRECT LDL IF TG IS HIGH; Future; Expected date: 06/23/2023 Controlled Cont lasix, lisinopril, metoprolol, aldadctone Hypertensive heart disease with chronic systolic congestive heart failure (HCC) Euvolemic Cont meds F/u cardiology Paroxysmal atrial fibrillation (HCC) Cont eliquis metoprolol Elevated ferritin - CBC WITH WBC DIFFERENTIAL; Future; Expected date: 01/22/2023 - IRON SCREEN, INCLUDING TIBC; Future; Expected date: 01/22/2023 - FERRITIN; Future; Expected date: 01/22/2023 Recheck 1 month, perhaps inflammatory as not on iron, no excessive alcohol Appreciate gi aid for +fobt - monitor clinically Leukocytosis, unspecified type Recheck 1 month Breast pain, right - US BREAST LIMITED RIGHT; Future; Expected date: 12/22/2022 - MAMMOGRAM DIAGNOSTIC HORACIO BILATERAL; Future; Expected date: 12/22/2022 Check image Follow Up: Return in about 6 months (around 06/23/2023) for Fasting Labs 2-5 Days Before Next Visit.| For: Fasting Labs 2-5 Days Before Next Visit Will come back for flu Adam Gardiner MD * Yoseph Winkler CMA - 12/22/2022 8:50 AM EDT DM Foot Exam completed today. Provider aware. Yoseph Winkler CMA Socks and Shoes Removed for Annual Diabetic Foot Screening RIGHT FOOT: No Reddened, Cracking, Or Open Areas Noted. RIGHT Dorsalis Pedis Pulse: Palpable RIGHT Posterior Tibial Pulse: Palpable RIGHT Monofilament:Patient reports feeling monofilament pressure on plantar surface of foot LEFT FOOT: No Reddened, Cracking or Open Areas Noted. LEFT Dorsalis Pedis Pulse: Palpable LEFT Posterior Tibial Pulse: Palpable LEFT Monofilament:Patient reports feeling monofilament pressure on plantar surface of foot Do you need diabetic shoes: No documented in this encounter Miscellaneous Notes * Addendum Note - Adam Gardiner MD - 01/21/2023 1:55 PM ESTAddended by: ADAM GARDINER on: 01/21/2023 01:55 PM Modules accepted: Orders documented in this encounter Plan of Treatment Upcoming Encounters Date Type Department Care Team (Late st Contact Info) Description 02/22/2023 9:30 AM EST Office Visit Cardiology, [facility] [address] [place] [address] Zbigniew Jolley, DO [address] [place] [address] 03/12/2023 8:30 AM EST Office Visit Ophthalmology, [facility] [address] [place] [address] Gregor Solorzano DO [address] [place] [address] 07/03/2023 1:00 PM EDT Office Visit General Internal Medicine [facility] [address] [facility] [address] dAam Gardiner MD [address] [place] [address] Scheduled Orders Name Type Priority Associated Diagnoses Orde r Schedule COMPREHENSIVE METABOLIC PANEL Lab Routine HTN, goal below 140/90 Type 2 diabetes mellitus with hemoglobin A1c goal of less than 8.0% (HCC) Expected: 06/23/2023 (Approximate), Expires: 12/22/2023 LIPID PANEL WITH DIRECT LDL IF TG IS HIGH Lab Routine HTN, goal below 140/90 Type 2 diabetes mellitus with hemoglobin A1c goal of less than 8.0% (HCC) Expected: 06/23/2023, Expires: 12/23/2023 HEMOGLOBIN A1C Lab Routine Type 2 diabetes mellitus with hemoglobin A1c goal of less than 8.0% (HCC) Expected: 06/23/2023 (Approximate), Expires: 12/22/2023 CBC WITH WBC DIFFERENTIAL Lab Routine Elevated ferritin Leukocytosis, unspecified type Expected: 02/20/2023 (Approximate), Expires: 01/22/2024 FERRITIN Lab Routine Elevated ferritin Leukocytosis, unspecified type Expected: 02/20/2023 (Approximate), Expires: 01/22/2024 IRON SCREEN, INCLUDING TIBC Lab Routine Elevated ferritin Leukocytosis, unspecified type Expected: 02/20/2023 (Approximate), Expires: 01/22/2024 Health Maintenance Due Date Last Done Comments [...] this encounter Medical Devices Implanted Type Area Loom Starter Device Identifier Shelf Expiration Date Model / Serial / Lot Lens 21.0 Mx60 - [id number] - [id number] Implanted:Qty: 1 on 07/19/2015 by Florencio Roblero DO at [facility] Left: Eye [employer] : SURGICAL 08/02/2017 MX60-21.0 / [id number] / [id number] Lens 22.0 Mx60 - [id number] - [id number] Implanted:Qty: 1 on 08/23/2015 by Florencio Roblero DO at [facility] Right: Eye [employer] : SURGICAL 01/02/2018 MX60-22.0 / [id number] / [id number] documented as of this encounter Results * (ABNORMAL) FERRITIN (01/19/2023 7:42 AM EST) Ferritin 815(H) 30 - 400 ng/mL 01/19/2023 1:12 PM EST LABORATORY C Blood Venous blood specimen / Unknown Venipuncture / Unknown 01/19/2023 7:42 AM EST 01/19/2023 7:42 AM EST Adam Gardiner MD LAB BLOOD [facility] [address] [place] [address] * (ABNORMAL) IRON SCREEN, INCLUDING TIBC (01/19/2023 7:42 AM EST) Iron 69 45 - 176 ug/dL 01/19/2023 12:36 PM EST LABORATORY GM Iron Binding Capacity 220(L) 250 - 425 ug/dL 01/19/2023 12:36 PM EST LABORATORY [facility] Transferrin Saturation Percent 31 15 - 55 % 01/19/2023 12:36 PM EST LABORATORY GM Blood Venous blood specimen / Unknown Venipuncture / Unknown 01/19/2023 7:42 AM EST 01/19/2023 7:42 AM EST Adam Gardiner MD LAB BLOOD [facility] [address] [place] [address] * US BREAST LIMITED RIGHT (01/03/2023 2:40 PM EDT) Anatomical Region Laterality Modality Breast Right Ultrasound Narrative 01/03/2023 3:40 PM EDT Result MAMMOGRAM DIAGNOSTIC HORACIO BILATERAL US BREAST LIMITED RIGHT History Breast pain, right The patient has no documented relevant family history. Films Compared This is the patient's baseline mammogram. Findings Left MAMMOGRAM DIAGNOSTIC HORACIO The left breast is almost entirely fatty. Mildly dense fibroglandular parenchyma is seen in the retroareolar region suggestive of mild gynecomastia. No dominant mass or clustered microcalcifications suspicious for malignancy are identified. Right MAMMOGRAM DIAGNOSTIC HORACIO The right breast is almost entirely fatty. Mild to moderately dense fibroglandular parenchyma extends from retroareolar region centrally in a pattern suggestive of gynecomastia.No dominant mass or clustered microcalcifications suspicious for malignancy are identified. US BREAST LIMITED RIGHT Homogeneous background echotexture - fat. Targeted ultrasound with attention to retroareolar region demonstrates hypoechoic fibroglandular parenchyma compatible with gynecomastia as noted on mammogram. No suspicious or solid mass lesion is identified. No evidence of edema. Impression Bilateral MAMMOGRAM DIAGNOSTIC HORACIO BILATERAL No mammographic evidence of malignancy. Bilateral gynecomastia, mild to moderate on the right and mild on the left. Right US BREAST LIMITED RIGHT No sonographic evidence of malignancy. BI-RADS Category: 2 - Benign. Recommendation Clinical management of breast symptoms/pain is advised as deemed clinically necessary. Patient is advised to follow up with referring clinician. Surgical consultation is a consideration if clinically warranted. Follow-up imaging is advised as deemed clinically necessary. Patient was informed of the above at the time of his visit on 01/03/2023. Digital breast tomosynthesis was performed. This digital mammogram has been analyzed with the computer aided detection system. This notice contains the results of your recent mammogram, including information about breast density. If your mammogram shows that your breast tissue is dense, you should know that dense breast tissue is a common finding and is not abnormal. Statistics show many women could have dense or highly dense breasts. Dense breast tissue can make it harder to find cancer on a mammogram and may be associated with an increased risk of cancer. This information about the result of your mammogram is given to you to raise your awareness and to inform your conversations with your physician. Together, you can decide which screening options are right for you, based on your mammogram results, individual risk factors or physical examination. A report of your results was sent to your physician. Your mammographic breast density on today's study is described above. There are four categories of breast density on mammography. Fatty breasts and those with scattered fibroglandular tissue are not considered dense. Heterogeneously dense or extremely dense tissue is considered "dense". Please understand that assessment of breast density may vary from year to year. This examination was performed at [facility], [address] [place] [id number]. Adam Gardiner MD RAD ULTRASOUND * MAMMOGRAM DIAGNOSTIC HORACIO BILATERAL (01/03/2023 2:22 PM EDT) Anatomical Region Laterality Modality Breast Bilateral Mammography Narrative 01/03/2023 3:40 PM EDT Result MAMMOGRAM DIAGNOSTIC HORACIO BILATERAL US BREAST LIMITED RIGHT History Breast pain, right The patient has no documented relevant family history. Films Compared This is the patient's baseline mammogram. Findings Left MAMMOGRAM DIAGNOSTIC HORACIO The left breast is almost entirely fatty. Mildly dense fibroglandular parenchyma is seen in the retroareolar region suggestive of mild gynecomastia. No dominant mass or clustered microcalcifications suspicious for malignancy are identified. Right MAMMOGRAM DIAGNOSTIC HORACIO The right breast is almost entirely fatty. Mild to moderately dense fibroglandular parenchyma extends from retroareolar region centrally in a pattern suggestive of gynecomastia.No dominant mass or clustered microcalcifications suspicious for malignancy are identified. US BREAST LIMITED RIGHT Homogeneous background echotexture - fat. Targeted ultrasound with attention to retroareolar region demonstrates hypoechoic fibroglandular parenchyma compatible with gynecomastia as noted on mammogram. No suspicious or solid mass lesion is identified. No evidence of edema. Impression Bilateral MAMMOGRAM DIAGNOSTIC HORACIO BILATERAL No mammographic evidence of malignancy. Bilateral gynecomastia, mild to moderate on the right and mild on the left. Right US BREAST LIMITED RIGHT No sonographic evidence of malignancy. BI-RADS Category: 2 - Benign. Recommendation Clinical management of breast symptoms/pain is advised as deemed clinically necessary. Patient is advised to follow up with referring clinician. Surgical consultation is a consideration if clinically warranted. Follow-up imaging is advised as deemed clinically necessary. Patient was informed of the above at the time of his visit on 01/03/2023. Digital breast tomosynthesis was performed. This digital mammogram has been analyzed with the computer aided detection system. This notice contains the results of your recent mammogram, including information about breast density. If your mammogram shows that your breast tissue is dense, you should know that dense breast tissue is a common finding and is not abnormal. Statistics show many women could have dense or highly dense breasts. Dense breast tissue can make it harder to find cancer on a mammogram and may be associated with an increased risk of cancer. This information about the result of your mammogram is given to you to raise your awareness and to inform your conversations with your physician. Together, you can decide which screening options are right for you, based on your mammogram results, individual risk factors or physical examination. A report of your results was sent to your physician. Your mammographic breast density on today's study is described above. There are four categories of breast density on mammography. Fatty breasts and those with scattered fibroglandular tissue are not considered dense. Heterogeneously dense or extremely dense tissue is considered "dense". Please understand that assessment of breast density may vary from year to year. This examination was performed at [facility], [address] [place] [id number]. Adam Gardiner MD RAD MAMMOGRAPHY documented in this encounter Visit Diagnoses Diagnosis Type 2 diabetes mellitus with hemoglobin A1c goal of less than 8.0% (HCC)- Primary DM type 2 nursing care encounter (HCC) Type II or unspecified type diabetes mellitus without mention of complication, not stated as uncontrolled HTN, goal below 140/90 Unspecified essential hypertension Hypertensive heart disease with chronic systolic congestive heart failure (HCC) Paroxysmal atrial fibrillation (HCC) Atrial fibrillation Elevated ferritin Other abnormal blood chemistry Leukocytosis, unspecified type Breast pain, right Mastodynia Breast pain, right Mastodynia Breast pain, right Mastodynia documented in this encounter Advance Directives Latest [...] and were consensually agreed upon. Care Teams Position Classification Manager Relationship Specialty Start Date End Date Adam Gardiner MD [address] [place] [address] PCP - General Internal Medicine 08/15/20 documented as of this encounter
--- OUTSIDE RECORDS SUMMARY | 2023-04-03 03:06 | External Medical Summary | Summary of Care ---
Author Name Unknown Organization [facility] Address [address] [place] [address] Phone [phone] Care Team Providers Care Director Traffic And Planning Name Role Phone Adam Siddiqi MD Primary Care Provider + Reason for Referral * (Within 10 days (routine)) - Authorized Specialty Diagnoses / Procedures Referred By Contac t Referred To Contact Radiology Diagnoses Breast pain, right Procedures US BREAST LIMITED RIGHT Adam Siddiqi MD [facility] [place] [id number] Referral ID Status Reason Start Date Expiration Date V isits Requested Visits Authorized [id number] Authorized 12/22/2022 999 999 Reason for Visit * Reason Comments Follow Up 6 month follow up. P merry presents with concerns for right chest pain only if he touches it or someone else touches. He states when he applies pressure to this area his pain increases to a 4 out of 10. Denied any other concerns. Encounter Details Date Type Department Care Team Description 12/22/2022 Office Visit General Internal Medicine State Ivis Arredondo [address] [place] [id number] Adam Siddiqi MD [facility] [place] [address] [id number] Type 2 diabetes mellitus with hemoglobin A1c goal of less than 8.0% (HCC)*; DM type 2 nursing care encounter (HCC); HTN, goal below 140/90; Hypertensive heart disease with chronic systolic congestive heart failure (HCC); Paroxysmal atrial fibrillation (HCC); Elevated ferritin; Leukocytosis, unspecified type; Breast pain, right Allergies Active Allergy Reactions Severity Noted Date Comments Amoxicillin-Pot Clavulanate Nausea/vomiting 12/31/2018 Penicillins Other (Please comment) High 04/18/2006 "tongue gets bubbly" Last had it ampicillin 1995 documented as of this encounter (statuses as of 12/22/2022) Medications Medication Sig Dispensed Refills Start Date End Date Status ASPIRIN 81 MG PO TABSIndications:M ixed dyslipidemia one tab by mouth daily 34 0 04/18/2006 Active OMEGA-3 FISH OIL 1000 MG PO CAPSIndications:O ld myocardial infarct,Mixed dyslipidemia Take one capsule by mouth twice a day 60 5 02/08/2009 Active Acetaminophen 500 MG Oral Tablet (Tylenol)Indicati ons:Acute left-sided low back pain without sciatica Take 2 Tablets by mouth every 8 hours as needed for Pain, Severe. 100 Tab 0 11/24/2020 Active Spironolactone 25 MG Oral Tablet (Aldactone)Indica tions:HTN, goal below 140/90 Take 0.5 Tablets by mouth in the morning. 30 Tablet 11 05/02/2022 Active Metoprolol Succinate ER 50 MG Oral Tablet Extended Release 24 Hour (toPROL XL)Indications:Ol d myocardial infarct,Ischemic cardiomyopathy,He art failure, systolic, due to CAD Take 1 Tablet by mouth in the morning. 90 Tablet 1 06/19/2022 Active Furosemide 20 MG Oral Tablet (Lasix)Indication [...] water or juice. 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 04/18/2022 Bilateral exudative age-related macular degeneration 12/05/2021 Paroxysmal atrial fibrillation 1 Type 2 diabetes mellitus with hemoglobin A1c goal of less than 8.0% 11/05/2020 Hypertensive heart disease with chronic systolic congestive heart failure 07/08/2018 Spinal stenosis of lumbar region with ne urogenic claudication 04/30/2018 HNP (herniated nucleus pulposus), lumbar 04/30/2018 Personal history of skin cancer 04/03/19 18 Overview: 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 Overview: 1994 cath showed 70% lesion in LAD, 50-70% lesion in left circumflex, EF 40% Ischemic cardiomyopathy 01/23/2007 Overview: EF 35-40% on echo 06/2004 EF 20-25% on echo 04/2008 See scanned records dated 05/09 documented as of this encounter (statuses as of 12/22/2022) Resolved Problems Problem Noted Date Resolved Date Obesity, Class I, BMI 30.0-34.9 (see actual BMI) 11/03/2020 06/05/2022 Kidney disease, chronic, stage III (GFR 30-59 ml /min) 03/15/2015 11/14/2016 Overview: Per CKD protocol #1 Benign neoplasm of colon 01/03/2010 010 Overview: adenomatous polyp, repeat in 5 years Benign neoplasm of colon 12/23/2009 017 Type 2 diabetes mellitus wit h hemoglobin A1c goal of less than 7.0% 09/20/2009 11/05/2020 Overview: ICD-10 update of inactive term Coronary atherosclerosis 05/19/2006 007 Overview: 70% LAD, 50-70% left circumflex, EF 40% based on cath from 1994 Echo 06/06/04 35-40% Mixed dyslipidemia 04/18/2006 02/16/2009 Overview: Per Lipid Taxonomy. Actinic keratosis 04/18/2006 11/14/2016 Overview: Sees derm documented as of this encounter (statuses as of 12/22/2022) Immunizations Name Administration Dates Next Due COVID-19 [...] = 0.6 oz pur e alcohol) rare Food Insecurity Answer Date Recorded Within the past 12 months, y ou worried that your food would run out before you got money to buy more. Never true 06/05/2022 Within the past 12 months, t he food you bought just didn't last and you didn't have money to get more. Never true 06/05/2022 Sex Assigned at Date Recorded Male 06/20/2018 9:42 AM E DT Job Start Date Occupation Industry Not on [...] calluses yourself. Talk to your doctor or freelance operator (a doctor who specializes in foot care) [...] the area doesnt appear to be healing. [id number] [email or web address], [address] [place] [address], [place] [address]. All rights reserved. This information is not intended as a substitute for professional medical care. Always follow your healthcare professional's instructions. documented in this encounter Progress Notes * Adam Siddiqi MD - 12/22/2022 9:19 AM EDT Chief [...] hemoglobin A1c goal of less than 8.0% ([facility]) 11/05/2020 Past Surgical History: Procedure Laterality Date COLONOSCOPY 03/05/2004 normal. COLONOSCOPY 09/13/2000 adenomatous polyps, repeat in3-5 years COLONOSCOPY 03/28/2005 tubular adenoma, repeat in 3-5 years. COLONOSCOPY THRU STOMA, W/BIOPSY 01/17/2010 adenomatous polyp, repeat in 5 years COLONOSCOPY, DIAGNOSTIC (RECTUM) 07/07/2015 adenomatous & hyperplastic polyps, repeat 5 yrs/[facility] COLONOSCOPY, DIAGNOSTIC (RECTUM) 06/02/2021 benign adenomatous polyp / [facility] INFORMATION s/p BCC excision. INFORMATION pyloric stenosis surgery at a baby INJECT DX/THER SUBSTANCE INTERLAMINAR LUMBAR/SACRAL W IMAGE GUIDE 06/20/2018 INJECTION SPINE LUMBAR OR SACRAL performed by Rahul Bradfordsins, DO at OR [facility] INJECTION OF EYE DRUG Right 09/29/2021 # [...] performed by Florencio Roblero DO at OR [facility] REMOVE CATARACT, INSERT LENS PROSTH Right 08/23/2015 EXTRACAPSULAR CATARACT REMOVAL WITH INTRAOCULAR LENS performed by Florencio Roblero DO at OR [facility] Family History Problem Relation Age of Onset [...] hemoglobin A1c goal of less than 8.0% ([facility]) (primary encounter diagnosis) E11.9 DM type 2 nursing care encounter ([facility]) I10 HTN, goal below 140/90 I11.0,I50.22 Hypertensive heart disease with chronic systolic congestive heart failure ([facility]) I48.0 Paroxysmal atrial fibrillation ([facility]) R79.89 Elevated ferritin D72.829 Leukocytosis, unspecified type N64.4 Breast pain, right PLAN: Type 2 diabetes mellitus with hemoglobin A1c goal of less than 8.0% ([facility]) (Primary) - COMPREHENSIVE METABOLIC PANEL; Future; Expected date: 06/23/2023 - LIPID PANEL WITH DIRECT LDL IF TG IS HIGH; Future; Expected date: 06/23/2023 - HEMOGLOBIN A1C; Future; Expected date: 06/23/2023 Cont diet DM type 2 nursing care encounter ([facility]) - DIABETES FOOT EXAM HTN, goal below [...] Visit Will come back for flu Adam Siddiqi MD * Yoseph Winkler CMA - 12/22/2022 [...] diabetic shoes: No documented in this encounter Plan of Treatment Upcoming Encounters Date Type Specialty Care Team Description 01/03/2023 Imaging Radiology 01/03/2023 Imaging Radiology 01/11/2023 Office Visit Ophthalmology Gregor Solorzano, DO [address] [place] [phone] 02/13/2023 Office Visit Cardiology Zbigniew Jolley DO [address] [place] [address] 07/03/2023 Office Visit Internal Medicine [facility] [address] [facility] [address] Scheduled Orders Name Type Priority Associated Diagnoses [...] WITH WBC DIFFERENTIAL Lab Routine Elevated ferritin Expected: 01/22/2023 (Approximate), Expires: 12/23/2023 IRON SCREEN, INCLUDING TIBC Lab Routine Elevated ferritin Expected: 01/22/2023 (Approximate), Expires: 12/23/2023 FERRITIN Lab Routine Elevated ferritin Expected: 01/22/2023 (Approximate), Expires: 12/23/2023 US BREAST LIMITED RIGHT Medical Imaging Routine Breast pain, right Expected: 12/22/2022, Expires: 01/23/2024 MAMMOGRAM DIAGNOSTIC HORACIO BILATERAL Medical Imaging Routine Breast pain, right Expected: 12/22/2022, Expires: 01/23/2024 Health Maintenance Due Date Last Done Comments COVID-19 Vaccine ( season) 2022 05/11/2020, 04/13/2020 Influenza Vaccine (FLU shot) (#1) 2022 12/05/2021, 11/18/2019, 12/23/2018, Additional history exists Depression Screening 04/18/2023 04/18/2022 GFR 06/06/2023 06/05/2022, 03/05, 11/28/2021, Additional history exists HbA1c 06/20/2023 12/19/2022, 04/0 05/2022, 11/28/2021, Additional history exists DIABETES-EYE EXAM 09/12/2023 09/11/2022, , 08/20/2020 (Done elsewhere), Additional history exists Albumin/Creatinine Ratio 12/20/2023 023, [...] on patient's age to complete this topic Hepatitis B Aged Out No longer eligi ble based on patient's age to complete this topic MENINGOCOCCAL (MENACTRA/MENVEO) Aged Out No longer eligible based on patient's age to complete this topic documented as of this encounter Medical Devices Implanted Type Area [employer]ter Fab[employer]ator Device Identifier Shelf Expiration Date Model / Serial / Lot Lens 21.0 Mx60 - [id number] - [id number] Implanted:Qty: 1 on 07/19/2015 by Florencio Roblero DO at OR [facility] Left: Eye [employer] : SURGICAL 08/02/2017 MX60-21.0 / [id number] / [id number] Lens 22.0 Mx60 - [id number] - [id number] Implanted:Qty: 1 on 08/23/2015 by Florencio Roblero DO at OR [facility] Right: Eye [employer]OM[employer] : SURGICAL 01/02/2018 MX60-22.0 / [id number] / [id number] documented as of this encounter Visit Diagnoses Diagnosis Type 2 [...] Leukocytosis, unspecified type Breast pain, right Mastodynia documented in this [...] and were consensually agreed upon. Care Teams Director Traffic And Planning Relationship Specialty Start Date End Date Adam Siddiqi MD [address] [place] [address] PCP - General Internal Medicine 08/15/20 documented as of this encounter
--- OUTSIDE RECORDS SUMMARY | 2023-04-03 03:06 | External Medical Summary | Summary of Care ---
Author Name Unknown Organization [facility] Address [address] [place] [address] Phone [phone] Care Team Providers Care Echocardiography Technologist Name Role Phone Adam Siddiqi MD Primary Care Provider + Reason for Visit * Reason Comments eRx-Medication Refill Encounter Details Date Type Department Care Team Description 12/20/2022 Refill General Internal Medicine [facility] State Ivis Sharp [address] [facility] [place] [phone] Valentina Ramirez MD [address] [facility] [place] [phone] Allergies Active Allergy Reactions Severity Noted Date Comments Amoxicillin-Pot Clavulanate Nausea/vomiting 12/31/2018 Penicillins Other (Please comment) High 04/18/2006 "tongue gets bubbly" Last had it ampicillin 1995 documented as of this encounter (statuses as of 12/21/2022) Medications Medication Sig Dispensed Refills Start Date End Date Status ASPIRIN 81 MG PO TABSIndications:Mixe d dyslipidemia one tab by mouth daily 34 0 04/18/2006 Active OMEGA-3 FISH OIL 1000 MG PO CAPSIndications:Old myocardial infarct,Mixed dyslipidemia Take one capsule by mouth twice a day 60 5 02/08/2009 Active Polyethylene Glycol 3350 17 GM/SCOOP Oral PowderIndications:Co nstipation, unspecified constipation type Take 17 g by mouth as needed for Constipation. Dissolve one heaping tablespoon in 8 ounces of water or juice. 17 g 0 11/24/2020 Active Acetaminophen 500 MG Oral Tablet (Tylenol)Indications :Acute left-sided low back pain without sciatica Take 2 Tablets by mouth every 8 hours as needed for Pain, Severe. 100 Tab 0 11/24/2020 Active Spironolactone 25 MG Oral Tablet (Aldactone)Indicatio ns:HTN, goal below 140/90 Take 0.5 Tablets by mouth in the morning. 30 Tablet 11 05/02/2022 Active Metoprolol Succinate ER 50 MG Oral Tablet Extended Release 24 Hour (toPROL XL)Indications:Old myocardial infarct,Ischemic cardiomyopathy,Heart failure, systolic, due to CAD Take 1 Tablet by mouth in the morning. 90 Tablet 1 06/19/2022 Active Furosemide 20 MG Oral Tablet (Lasix)Indications:H eart failure, systolic, due to CAD Take 1 Tablet by mouth in the morning. 90 Tablet 3 08/14/2022 Active Lisinopril 2.5 MG Oral Tablet (Prinivil)Indication s:HTN, goal below 140/90 Take 1 Tablet by mouth in the morning. In the morning.. 90 Tablet 1 08/14/2022 Active Eliquis 5 MG Oral Tablet (Apixaban)Indication s:New onset atrial fibrillation (HCC) TAKE ONE TABLET BY MOUTH TWICE DAILY 180 Tablet 3 09/06/2022 Active PreserVision AREDS 2+Multi Vit Oral Capsule Take by mouth. 0 Active Tamsulosin HCl 0.4 MG Oral Capsule (Flomax)Indications: BPH with obstruction/lower urinary tract symptoms TAKE 1 CAPSULE BY MOUTH AT BEDTIME 30 Capsule 5 10/31/2022 Active Finasteride 5 MG Oral Tablet (Proscar) Take 1 Tablet by mouth in the morning. 90 Tablet 1 12/18/2022 Active Atorvastatin Calcium 80 MG Oral Tablet (Lipitor) Take 1 Tablet by mouth in the morning. In the morning.. 90 Tablet 0 12/18/2022 Active Hospital, Clinic, or Other Facility Administered [...] as of this encounter (statuses as of 12/21/2022) Active Problems Problem Noted Date BPH with [...] skin cancer 04/03/19 18 Overview: SCC right episcopal - 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 [...] as of this encounter (statuses as of 12/21/2022) Resolved Problems Problem Noted Date Resolved Date [...] as of this encounter (statuses as of 12/21/2022) Immunizations Name Administration Dates Next Due COVID-19 mRNA, LNP-s, No Pre serve, 2-Dose Series ([employer]) 05/11/2020,04/13/2020 Pneumococcal Conjugate Vacc, 13 Valent (Prevnar) [...] encounter Miscellaneous Notes * Telephone Encounter - Marcus Stark [facility] - 12/21/2022 9:09 AM EDTRefused Prescriptions: Disp Refills Finasteride 5 MG Oral Tablet (Proscar) 30 Tab*0 Sig: TAKE 1 TABLET BY MOUTH EVERY MORNINGRefused By: MARCUS STARK for Refusal: Duplicate Request------- documented in this encounter Plan of Treatment Upcoming Encounters Date Type Specialty Care Team Description 12/22/2022 Office Visit Internal Medicine Adam Siddiqi MD [address] [place] [address], [place] [address] 01/11/2023 Office Visit Ophthalmology Gregor Solorzano, DO [address] [place] [address] 02/13/2023 Office Visit Cardiology Zbigniew Jolley, [address] [place] [address] Health Maintenance Due Date Last Done Comments COVID-19 Vaccine (2022-24 season) 2022 05/11/2020, 04/13/2020 Influenza Vaccine (FLU shot) (#1) 2022 12/05/2021, 11/18/2019, 12/23/2018, Additional history exists Diabetic Foot Exam 12/05/2022 12/05/2021, 0 11/03/2020, 03/31/2019, Additional history exists Depression Screening 04/18/2023 04/18/2022 GFR 06/06/2023 06/05/2022, 03/05, 11/28/2021, Additional history exists HbA1c 06/20/2023 12/19/2022, 04/0 05/2022, 11/28/2021, Additional history exists DIABETES-EYE EXAM 09/12/2023 09/11/2022, , 08/20/2020 (Done elsewhere), Additional history exists Albumin/Creatinine Ratio 12/20/2023 023, 11/28/2021, 11/04/2020, Additional history exists DTaP,Tdap,and Td Vaccines (2 [...] this encounter Medical Devices Implanted Type Area Technician Anatomic Pathology Device Identifier Shelf Expiration Date Model / Serial / Lot Lens 21.0 Mx60 - [id number] - [id number] Implanted:Qty: 1 on 07/19/2015 by Florencio Roblero DO at OR [facility] Left: Eye [employer] : SURGICAL 08/02/2017 MX60-21.0 / [id number] / [id number] Lens 22.0 Mx60 - [id number] - [id number] Implanted:Qty: 1 on 08/23/2015 by Florencio Roblero DO at OR [facility] Right: Eye [employer]OM[employer] : SURGICAL 01/02/2018 MX60-22.0 / [id number] / [id number] documented as of this encounter Advance Directives [...] and were consensually agreed upon. Care Teams Echocardiography Technologist Relationship Specialty Start Date End Date Adam Siddiqi MD [address] [place] [address], [place] [address] PCP - General Internal Medicine 08/15/20 documented as of this encounter
--- OUTSIDE RECORDS SUMMARY | 2023-04-03 03:06 | External Medical Summary | Summary of Care ---
Author Name Unknown Organization [facility] Address [address] [place] [address] Phone [phone] Care Team Providers Care Agricultural Specialist Name Role Phone Adam Siddiqi MD Primary Care Provider + Reason for Visit * Reason Comments eRx-Medication Refill Encounter Details Date Type Department Care Team (Late st Contact Info) Description 01/07/2023 [facility] [place] 200 [facility] [place] [address] Adam Siddiqi MD [address] [place] [address] Old myocardial infarct; Ischemic cardiomyopathy; Heart failure, systolic, due to CAD Allergies Active Allergy Reactions Criticality Noted Date Comments Amoxicillin-Pot Clavulanate Nausea/vomiting 12/31/2018 Penicillins Other (Please comment) High 04/18/2006 "tongue gets bubbly" Last had it ampicillin 1995 documented as of this encounter (statuses as of 01/07/2023) Medications Medication Sig Dispensed Refills Start Date End Date Status ASPIRIN 81 MG PO TABSIndications:Mi xed dyslipidemia one tab by mouth daily 34 0 04/18/2006 Active OMEGA-3 FISH OIL 1000 MG PO CAPSIndications:Ol d myocardial infarct,Mixed dyslipidemia Take one capsule by mouth twice a day 60 5 02/08/2009 Active Acetaminophen 500 MG Oral Tablet (Tylenol)Indicatio [...] EVERY MORNING 90 Tablet 1 01/07/2023 Active Metoprolol Succinate ER 50 MG Oral Tablet Extended Release 24 Hour (toPROL XL)Indications:Old myocardial infarct,Ischemic cardiomyopathy,Hea rt failure, systolic, due to CAD Take 1 Tablet by mouth in the morning. 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 [...] as of this encounter (statuses as of 01/07/2023) Resolved Problems Problem Noted Date Diagnosed Date [...] as of this encounter (statuses as of 01/07/2023) Immunizations Name Administration Dates Next Due COVID-19 [...] encounter Miscellaneous Notes * Telephone Encounter - Oscar Gracia RPh - 01/07/2023 11:20 AM ESTSigned Prescriptions: Disp Refills Metoprolol Succinate ER 50 MG Oral Tablet *90 Tab*1 Sig: TAKE 1 TABLET BY MOUTH EVERY MORNINGAuthorizing Provider: ADAM SIDDIQI User: OSCAR GRACIA documented in this encounter Plan of Treatment Upcoming Encounters Date Type Department Care Team (Late st Contact Info) Description 01/11/2023 8:15 AM EST Office Visit Ophthalmology, [facility] [address] [place] [address] Gregor Solorzano, [address] [place] [address] 03/06/2023 3:00 PM EST Office Visit Cardiology Ayaka Mas [address] [place] [address] Stephanie Gallo PA-C [address] [place] [address] 07/03/2023 1:00 PM EDT Office Visit General Internal Medicine [facility] [place] 200 [facility] [place] [address] Adam Siddiqi MD 200 [facility] [place] [address] Health Maintenance Due Date Last Done Comments Hepatitis B (1 of 3 - Risk 3-dose series) 2000 COVID-19 Vaccine ( season) 2022 05/11/2020, 04/13/2020 Influenza Vaccine (FLU shot) (#1) 2022 12/05/2021, 11/18/2019, 12/23/2018, Additional history exists Depression Screening 04/18/2023 04/18/2022 GFR 06/06/2023 06/05/2022, 03/05, 11/28/2021, Additional history exists HbA1c 06/20/2023 12/19/2022, 04/0 05/2022, 11/28/2021, Additional history exists Diabetic Eye Exam 09/12/2023 09/11/2022, , 09/29/2021, Additional history exists Albumin/Creatinine Ratio 12/20/202312/19/2 023, 11/28/2021, 11/04/2020, Additional history exists Diabetic [...] this encounter Medical Devices Implanted Type Area Assembly Manager Device Identifier Shelf Expiration Date Model / Serial / Lot Lens 21.0 Mx60 - [id number] - [id number] Implanted:Qty: 1 on 07/19/2015 by Florencio Roblero DO at OR [facility] Left: Eye BAUSCH & LOMB : SURGICAL 08/02/2017 MX60-21.0 / [id number] / [id number] Lens 22.0 Mx60 - [id number] - [id number] Implanted:Qty: 1 on 08/23/2015 by Florencio Roblero DO at OR [facility] Right: Eye BAUSCH & LOMB : SURGICAL 01/02/2018 MX60-22.0 / [id number] / [id number] documented as of this encounter Visit Diagnoses Diagnosis Old myocardial infarct Old myocardial infarction Ischemic cardiomyopathy Other specified forms of chronic ischemic heart disease Heart failure, systolic, due to CAD Unspecified systolic heart failure documented in this encounter Advance Directives Latest [...] and were consensually agreed upon. Care Teams Agricultural Specialist Relationship Specialty Start Date End Date Adam Siddiqi MD 200 [facility] [place], [place] [address] PCP - General Internal Medicine 08/15/20 documented as of this encounter
--- OUTSIDE RECORDS SUMMARY | 2023-04-03 03:06 | External Medical Summary | Summary of Care ---
Author Name Unknown Organization [facility] Address [address] [place] [address] Phone [phone] Care Team Providers Care Tripe Scraper Name Role Phone Adam Siddiqi MD Primary Care Provider + Reason for Visit * Reason Comments Follow Up 8-10 week f/u; pt myers s no new complaints since LEIGHA * Precert (Within 10 days (routine)) - Authorized Specialty Diagnoses / Procedures Referred By Luly covarrubias Referred To Contact Ophthalmology Diagnoses Exudative age-related macular degeneration, right eye, with active choroidal neovascularization (HCC) Procedures FL AFLIBERCEPT INJECTION FL INTRAVITREAL NJX PHARMACOLOGIC AGT SPX Gregor Solorzano DO [address] [place] [address] Referral ID Status Reason Start Date Expiration Date V isits Requested Visits Authorized [id number] Authorized Precert 08/31/2022 03/04/2099 [id number] Encounter Details Date Type Department Care Team (Late st Contact Info) Description 01/11/2023 8:15 AM EST Office Visit Ophthalmology, [facility] [address] [place] [address] Gregor Solorzano DO [address] [place] [address] Exudative age-related macular degeneration of right eye with active choroidal neovascularization (HCC)* Allergies Active Allergy Reactions Criticality Noted Date Comments Amoxicillin-Pot Clavulanate Nausea/vomiting 12/31/2018 Penicillins Other (Please comment) High 04/18/2006 "tongue gets bubbly" Last had it ampicillin 1994 documented as of this encounter (statuses as of 01/11/2023) Medications Medication Sig Dispensed Refills Start Date [...] as of this encounter (statuses as of 01/11/2023) Active Problems Problem Noted Date Diagnosed Date [...] of skin cancer 04/03/2017 Overview: SCC right yazidi - 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 [...] as of this encounter (statuses as of 01/11/2023) Resolved Problems Problem Noted Date Diagnosed Date [...] as of this encounter (statuses as of 01/11/2023) Immunizations Name Administration Dates Next Due COVID-19 [...] encounter Progress Notes * Gregor Solorzano, - 01/11/2023 8:15 AM EST [facility] [place] Nursing notes reviewed. Eye vitals reviewed. Mood and Affect: normal HPI: Janis Mckeon is a 82 year old male who presents for evaluation of AMD Base Eye Exam Visual Acuity (Snellen - Linear) Right Left Dist cc 20/40 -2 20/25 Dist ph cc 20/30 Tonometry (Tonopen, q8:22 AM) Right Left Pressure 13 13 Pupils Pupils Right PERRL Left PERRL Visual [place] (Counting fingers) Right Left Full Full Extraocular Movement Right Left Full, Ortho Full, Ortho Neuro/Psych Oriented x3: Yes Mood/Affect: Normal Dilation Both eyes: 0.5% Proparacaine @ 8:19 AM Dilation #2 Right eye: 1.0% Mydriacyl, 2.5% Phenylephrine @ 8:21 AM Dilation Comments Patient cautioned that effects of dilation may last 2-7 hours dependant upon individual reaction. It was discussed that driving while dilated is not recommended. EXTERNAL: The ocular adnexae are unremarkable. SLE: Lids/Lashes: wnl OU Conjunctiva/Sclera: quiet OU Cornea: clear OU Anterior Chamber: deep and quiet OU Iris: normal OU; no NVI OU Lens: PCIOL OU; yag cap OD Dilated fundus exam OD: vitreous: clear optic nerve: 0.3, no edema/pallor/NVD macula: drusen, srheme--improved vessels: wnl periphery: wnl, no RT/RD Dilated fundus exam OS: 04/28/2022 vitreous: clear optic nerve: 0.3, no edema/pallor/NVD macula: drusen, rpe changes vessels: wnl periphery: wnl, no RT/RD OCT Interpretation: OD: PED w/ recurrent srfluid, srmounding--improved 9um, prior worse, prior improved 34um prior worse 54um prior improved, prior improved OS: 04/28/2022: drusen, no cme/srfluid A/P: 1. Age-Related Macular Degeneration OU OD: wet -Avastin 08/31/22, 06/29/22, 02/10/22, 12/09/21, 10/28/21, 09/29/21 -9 weeks--better at 9 weeks, worse at 9 and 11 weeks -Eylea OD 11/02/2022 -10 weeks -on Eliquis and ASA OS: dry [...] and lipid control. 4. Pseudophakia OU -stable F/u 8-10 weeks, OCT OU Trevoradriana Fredy Solorzano, DO 0223 CC: Koko Hough, OD CC: PCP: Adam [...] documented in this encounter Nursing Notes * Livia Contreras MED ASSIST - 01/11/2023 8:44 AM EST Janis Mckeon to receive second Eylea 2mg Injection of the Right eye. Correct eye confirmed with patient and marked by Gregor Solorzano DO Eylea 2mg lot # [id number] Exp. Date: 03/2024 * Livia Contreras MED ASSIST - 01/11/2023 8:12 AM EST Janis Mckeon is a 82 year old year old male who presents for AMD OU. Last Office Visit: 11/02/2022 (in office), Visit date not found (telemedicine) Patient currently states no change in vision. Are you diabetic? Yes. Do you check your blood sugars daily? NO. Last Hemoglobin A1C: Lab Results Component Value Date/Time HGBA1C 7.6 (H) 12/19/2022 07:53 AM HGBA1C 7.2 (H) 06/05/2022 01:51 PM HGBA1C 7.6 (H) 11/28/2021 09:39 AM HGBA1C 7.8 (H) 11/18/2019 10:57 AM HGBA1C 7.0 (H) 04/01/2019 08:35 AM HGBA1C 7.5 (H) 01/31/2018 08:[address]? yes OCT image(s) of right eye acquired and filed/scanned into chart. documented in this encounter Plan of Treatment Upcoming Encounters Date Type Department Care Team (Late st Contact Info) Description 02/22/2023 9:30 AM EST Office Visit Cardiology, [facility] [address] [place] [address] Zbigniew Jolley DO 132 [facility] [place] [address] 07/03/2023 1:00 PM EDT Office Visit General Internal Medicine [facility] [address] [place] [address] Adam Siddiqi MD 200 [place] [address] Scheduled Orders Name Type Priority Associated Diagnoses Orde r Schedule RETINA SCAN DIAGNOSTIC IMAGE, POSTERIOR Procedures Routine Exudative age-related macular degeneration of right eye with active choroidal neovascularization (HCC) Ordered: 01/11/2023 Health Maintenance Due Date Last Done Comments [...] , 09/29/2021, Additional history exists Albumin/Creatinine Ratio 12/20/2023 023, [...] this encounter Medical Devices Implanted Type Area Tube Mounter Device Identifier Shelf Expiration Date Model / Serial / Lot Lens 21.0 Mx60 - [id number] - [id number] Implanted:Qty: 1 on 07/19/2015 by Florencio Roblero DO at OR [facility] Left: Eye BAUSCH & LOMB : SURGICAL 08/02/2017 MX60-21.0 / [id number] / [id number] Lens 22.0 Mx60 - [id number] - [id number] Implanted:Qty: 1 on 08/23/2015 by Florencio Roblero DO at OR [facility] Right: Eye BAUSCH & LOMB : SURGICAL 01/02/2018 MX60-22.0 / [id number] / [id number] documented as of this encounter Visit Diagnoses Diagnosis Exudative age-related macular degeneration of right eye with active choroidal neovascularization (HCC)- Primary documented in this encounter Administered Medications Active Administered Medications - up to 3 most recent administrations Medication Order MAR Action Action Date Dose Rate Site Aflibercept (Eylea) intraviteal prefilled syringe 2 mg 2 mg, Intravitreal, PRN Other, Starting on Vanessa 11/02/22 at 0836, Until Sun11/02/23 at 0835, For 365 days Given 01/11/2023 8:46 AM EST 2 mg Eye Right Given 11/02/2022 8:59 AM EDT 2 mg Ey e Right ROPivacaine (Naropin) inj 1.5 mg 1.5 mg, Injection, PRN Other, Starting on Vanessa 11/02/22 at 0836, Until Sun11/02/23 at 0835, For 365 days Given 01/11/2023 8:45 AM EST 1.5 mg Eye R ight Given 11/02/2022 8:58 AM EDT 1.5 mg [...] and were consensually agreed upon. Care Teams Tripe Scraper Relationship Specialty Start Date End Date Adam Siddiqi MD [address] [place] [address] PCP - General Internal Medicine 08/15/20 documented as of this encounter
--- OUTSIDE RECORDS SUMMARY | 2023-04-03 03:06 | External Medical Summary | Summary of Care ---
Author Name Unknown Organization [facility] Address [address] [place] [address] Phone [phone] Care Team Providers Care Locomotive Repairer Diesel Name Role Phone Adam Siddiqi MD Primary Care Provider + Reason for Visit * Reason Onset Date Comments Test Results Imaging Study 01/05/2023 Encounter Details Date Type Department Care Team (Late st Contact Info) Description 01/05/2023 Telephone General Internal Medicine [facility] [place] [address] [place] [address] Adam Siddiqi MD [address] [place] [phone] Test Results Imaging Study Allergies Active Allergy Reactions Criticality Noted Date Comments Amoxicillin-Pot Clavulanate Nausea/vomiting 12/31/2018 Penicillins Other (Please comment) High 04/18/2006 "tongue gets bubbly" Last had it ampicillin 1995 documented as of this encounter (statuses as of 01/05/2023) Medications Medication Sig Dispensed Refills Start Date End Date Status ASPIRIN 81 MG PO TABSIndications:Mixed dyslipidemia one tab by mouth daily 34 0 04/18/2006 Active OMEGA-3 FISH OIL 1000 MG PO CAPSIndications:Old myocardial infarct,Mixed dyslipidemia Take one capsule by mouth twice a day 60 5 02/08/2009 Active Acetaminophen 500 MG Oral Tablet (Tylenol)Indications: [...] 06/19/2022 Active Furosemide 20 MG Oral Tablet (Lasix)Indications:He [...] as of this encounter (statuses as of 01/05/2023) Active Problems Problem Noted Date Diagnosed Date [...] of skin cancer 04/03/2017 Overview: SCC right yazidism - 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 [...] as of this encounter (statuses as of 01/05/2023) Resolved Problems Problem Noted Date Diagnosed Date [...] as of this encounter (statuses as of 01/05/2023) Immunizations Name Administration Dates Next Due COVID-19 mRNA, LNP-s, No Pre serve, 2-Dose Series ([employer]) 05/11/2020,04/13/2020 Pneumococcal Conjugate Vacc, 13 Valent (Prevnar) [...] encounter Miscellaneous Notes * Telephone Encounter - Liu Cohn LPN - 01/05/2023 1:21 PM EDT Left message for patient to return call. * Telephone Encounter - Liu Cohn LPN - 01/05/2023 1:20 PM EDT ----- Message from Adam Siddiqi MD sent at 01/04/2023 8:24 AM EDT ----- Mammogram looks ok, does have mild breast enlargement. How is breast if still with pain or lump, would suggest seeing breast expert to exclude lesion even in setting of ok mammogram documented in this encounter Plan of Treatment Upcoming Encounters Date Type Department Care Team (Late st Contact Info) Description 01/11/2023 8:15 AM EST Office Visit Ophthalmology, [facility] [address] [place] [address] Gregor Solorzano DO [address] [place] [address] 03/06/2023 3:00 PM EST Office Visit Cardiology Ayaka Mas [address] [place] [address] Stephanie Gallo PA-C [address] [place] [address] [place] [address] 07/03/2023 1:00 PM EDT Office Visit General Internal Medicine [employer] 200 [facility] [place] [address] Adam Siddiqi MD 200 [facility] [place] [address] Health Maintenance Due Date Last Done Comments Hepatitis B (1 of 3 - Risk 3-dose series) 2000 COVID-19 Vaccine (2022- season) 2022 05/11/2020, 04/13/2020 Influenza Vaccine (FLU [...] this encounter Medical Devices Implanted Type Area Chemical Applicator Device Identifier Shelf Expiration Date Model / Serial / Lot Lens 21.0 Mx60 - [id number] - [id number] Implanted:Qty: 1 on 07/19/2015 by Florencio Roblero DO at OR [facility] [address] Left: Eye BAUSCH & LOMB : SURGICAL 08/02/2017 MX60-21.0 / [id number] / [id number] Lens 22.0 Mx60 - [id number] - [id number] Implanted:Qty: 1 on 08/23/2015 by Florencio Roblero DO at OR [facility] [address] [address] Right: Eye BAUSCH & LOMB : SURGICAL 01/02/2018 MX60-22.0 / [id number] / [id number] documented as of this encounter Advance Directives [...] and were consensually agreed upon. Care Teams Locomotive Repairer Diesel Relationship Specialty Start Date End Date Adam Siddiqi MD 200 [place] [address] PCP - General Internal Medicine 08/15/20 documented as of this encounter
--- OUTSIDE RECORDS SUMMARY | 2023-04-03 03:06 | External Medical Summary | Summary of Care ---
Author Name Unknown Organization [facility] Address [address] [place] [address] Phone [phone] Care Team Providers Care Phone Counselor Name Role Phone Adam Siddiqi MD Primary Care Provider + Reason for Referral * Evaluate & Treat - Unlimited Visits (Within 10 days (routine)) - Authorized Specialty Diagnoses / Procedures Referred By Luly covarrubias Referred To Contact Physical Therapy / Physical Medicine And Rehab Diagnoses Acute neck pain Spasm of muscle Dulce Godfrey PA-C [address] [place] [address] Referral ID Status Reason Start Date Expiration Date Visits Requested Visits Authorized [id number] Authorized Specialty Services Required 3 [phone] Question Answer Referral Priority Within 10 days (routine) Where should this appointment be scheduled? [facility] Reason for Visit * Reason Comments Acute Encounter Details Date Type Department Care Team ([facility] Contact Info) Description 01/17/2023 11:20 AM EST Office Visit Family Practice [address] [address] Dulec Godfrey PA-C [address] [place] [address] Acute neck pain*; Muscle spasms of neck [...] of skin cancer 04/03/2017 Overview: SCC right latter-day - 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 [...] 9:30 AM EST Office Visit Cardiology, [facility] [address] [place] [address] Zbigniew Jolley, DO [address] [place] [address] 03/12/2023 8:30 AM EST Office Visit Ophthalmology, [facility] [address] [place] [address] Gregor Solorzano, DO [address] [place] [address] 07/03/2023 1:00 PM EDT Office Visit General Internal Medicine [facility] [place] 200 [facility] [place] [address] Adam Siddiqi MD 200 [facility] [place] [address] Scheduled Referrals Name Type Priority Associated Diagnoses [...] this encounter Medical Devices Implanted Type Area Wireless Cellular Technician Device Identifier Shelf Expiration Date Model / Serial / Lot Lens 21.0 Mx60 - [id number] - [id number] Implanted:Qty: 1 on 07/19/2015 by Florencio Roblero DO at OR [facility] Left: Eye BAUSCH & LOMB : SURGICAL 08/02/2017 MX60-21.0 / [id number] / [id number] Lens 22.0 Mx60 - [id number] - [id number] Implanted:Qty: 1 on 08/23/2015 by Florencio Roblero DO at OR [facility] Right: Eye BAUSCH & LOMB : SURGICAL 01/02/2018 MX60-22.0 / [id number] / [id number] documented as of this encounter Visit Diagnoses [...] and were consensually agreed upon. Care Teams Phone Counselor Relationship Specialty Start Date End Date Adam Siddiqi MD 200 [place] [address] PCP - General Internal Medicine 08/15/20 documented as of this encounter
--- OUTSIDE RECORDS SUMMARY | 2023-04-03 03:06 | External Medical Summary | Summary of Care ---
Author Name Unknown Organization [facility] Address [address] [place] [address] Phone [phone] Care Team Providers Care Commercial Underwriter Name Role Phone Adam Siddiqi MD Primary Care Provider + Reason for Visit * Reason Comments Follow Up 8-10 week f/u; pt myers s no new complaints since LEIGHA * Precert (Within 10 days (routine)) - Authorized Specialty Diagnoses / Procedures Referred By Luly covarrubias Referred To Contact Ophthalmology Diagnoses Exudative age-related macular degeneration, right eye, with active choroidal neovascularization (HCC) Procedures AR AFLIBERCEPT INJECTION AR INTRAVITREAL NJX PHARMACOLOGIC AGT SPX Gregor Solorzano DO [address] [place] [address] Referral ID Status Reason Start Date Expiration Date V isits Requested Visits Authorized [id number] Authorized Precert 08/31/2022 03/04/2099 999 [id number] Encounter Details Date Type Department Care Team (Late st Contact Info) Description 01/11/2023 8:15 AM EST Office Visit Ophthalmology, [facility] [address] [place] [address] Gregor Solorzano DO [address] [place] [address] Exudative age-related macular degeneration of right eye [...] of skin cancer 04/03/2017 Overview: SCC right worship - 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 [...] - 01/11/2023 8:15 AM EST [facility] [place] Nursing notes reviewed. [...] Gregor Solorzano DO Eylea 2mg lot # [id number] Exp. Date: 03/2024 * Livia Contreras MED [...] 02/22/2023 9:30 AM EST Office Visit Cardiology, [facility] [address] [place] [address] Zbigniew Jolley DO 132 [facility] [place] [address] 07/03/2023 1:00 PM EDT Office Visit General Internal Medicine [facility] 200 [facility] [place] [address] Adam Siddiqi MD 200 [place] [address] Scheduled Orders Name Type Priority Associated Diagnoses [...] this encounter Medical Devices Implanted Type Area Edge Drummer Device Identifier Shelf Expiration Date Model / Serial / Lot Lens 21.0 Mx60 - [id number] - [id number] Implanted:Qty: 1 on 07/19/2015 by Florencio Roblero DO at OR [facility] Left: Eye BAUSCH & LOMB : SURGICAL 08/02/2017 MX60-21.0 / [id number] / [id number] Lens 22.0 Mx60 - [id number] - [id number] Implanted:Qty: 1 on 08/23/2015 by Florencio Roblero DO at OR [facility] Right: Eye BAUSCH & LOMB : SURGICAL 01/02/2018 MX60-22.0 / [id number] / [id number] documented as of this encounter Visit Diagnoses [...] and were consensually agreed upon. Care Teams Commercial Underwriter Relationship Specialty Start Date End Date Adam Siddiqi MD [address] [place] [address] PCP - General Internal Medicine 08/15/20 documented as of this encounter
--- OUTSIDE RECORDS SUMMARY | 2023-04-03 03:06 | External Medical Summary | Summary of Care ---
Author Name Unknown Organization [facility] Address [address] [place] [address] Phone [phone] Care Team Providers Care Trust Manager Name Role Phone Adam Siddiqi MD Primary Care Provider + Reason for Visit * Reason Onset Date Comments Test Results Imaging Study 01/05/2023 Encounter Details Date Type Department Care Team (Late st Contact Info) Description 01/05/2023 Telephone General Internal Medicine [facility] [address] [place] [address] Adam Siddiqi MD [address] [place] [phone] Test Results Imaging Study Allergies Active Allergy [...] of skin cancer 04/03/2017 Overview: SCC right yazdanism - 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 [...] mRNA, LNP-s, No Pre serve, 2-Dose Series ([employer]) 05/11/2020,04/13/2020 Pneumococcal Conjugate Vacc, 13 Valent (Prevnar) [...] encounter Miscellaneous Notes * Telephone Encounter - Melissa Melton LPN - 01/05/2023 3:49 PM EDT Patient is aware and verbalizes understanding. He stated that he is still having discomfort but he would like to monitor it for now. He will call back if he changes his mind. * Telephone Encounter - Liu Cohn LPN [...] 01/11/2023 8:15 AM EST Office Visit Ophthalmology, [facility] [address] [place] [address] Gregor Solorzano, DO [address] [place] [address] 03/06/2023 3:00 PM EST Office Visit Cardiology Sindi YoannaAyaka [address] [place] [address] Stephanie Gallo PA-C [address] [place] [address] 07/03/2023 1:00 PM EDT Office Visit General Internal Medicine [facility] [address] [facility] [place] [facility] [place] [address] Adam Siddiqi MD [address] [place] [address] Health Maintenance Due Date Last Done Comments [...] this encounter Medical Devices Implanted Type Area Pr Internship Device Identifier Shelf Expiration Date Model / Serial / Lot Lens 21.0 Mx60 - [id number] - [id number] Implanted:Qty: 1 on 07/19/2015 by Florencio Roblero DO at OR [facility] Left: Eye BAUSCH & LOMB : SURGICAL 08/02/2017 MX60-21.0 / [id number] / [id number] Lens 22.0 Mx60 - [id number] - [id number] Implanted:Qty: 1 on 08/23/2015 by Florencio Roblero DO at OR [facility] Right: Eye BAUSCH & LOMB : SURGICAL 01/02/2018 MX60-22.0 / [id number] / [id number] documented as of this encounter Advance Directives [...] and were consensually agreed upon. Care Teams Trust Manager Relationship Specialty Start Date End Date Adam Siddiqi MD 200 [place] [address] PCP - General Internal Medicine 08/15/20 documented as of this encounter
--- OUTSIDE RECORDS SUMMARY | 2023-04-03 03:06 | External Medical Summary | Summary of Care ---
Author Name Unknown Organization [facility] Address [address] [place] [address] Phone [phone] Care Team Providers Care Environmental Project Manager Name Role Phone Adam Siddiqi MD Primary Care Provider + Reason for Visit * Reason Onset Date Comments MyCode Nonconsent - Not interested at this time 01/17/2023 Encounter Details Date Type Department Care Team (Late st Contact Info) Description 01/17/2023 Orders Only Outcomes Research Department [address] [place] [address] Mariel Grayson CHRA MyCode Nonconsent Documentation Allergies Active Allergy Reactions Criticality Noted Date [...] as of this encounter Progress Notes * Mariel Grayson CHRA - 01/17/2023 10:47 AM EST MyCode Nonconsent Documentation Janis Mckeon was approached in the clinic regarding participation in the MyCode Project and did not consent. documented in this encounter Plan of Treatment Upcoming Encounters Date Type Department Care Team ([facility] Contact Info) Description 01/17/2023 11:20 AM EST Office Visit [address] [address] Dulce Godfrey PA-C [address] [place] [address] Arrived 02/22/2023 9:30 AM EST Office Visit Cardiology, [facility] [address] [facility] [place] [address] Zbigniew Jolley, DO [address] [place] [address] 03/12/2023 8:30 AM EST Office Visit Ophthalmology, [facility] [address] [place] [address] Gregor Solorzano, DO [address] [place] [address] 07/03/2023 1:00 PM EDT Office Visit General Internal Medicine [facility] [address] [place] [address] Adam Siddiqi MD [address] [place] [address] Health Maintenance Due Date Last Done Comments [...] this encounter Medical Devices Implanted Type Area Registered Nurse Step Down Device Identifier Shelf Expiration Date Model / Serial / Lot Lens 21.0 Mx60 - [id number] - [id number] Implanted:Qty: 1 on 07/19/2015 by Florencio Roblero DO at OR [facility] Left: Eye BAUSCH & LOMB : SURGICAL 08/02/2017 MX60-21.0 / [id number] / [id number] Lens 22.0 Mx60 - [id number] - [id number] Implanted:Qty: 1 on 08/23/2015 by Florencio Roblero DO at OR [facility] Right: Eye BAUSCH & LOMB : SURGICAL 01/02/2018 MX60-22.0 / [id number] / [id number] documented as of this encounter Advance Directives [...] and were consensually agreed upon. Care Teams Environmental Project Manager Relationship Specialty Start Date End Date Adam Siddiqi MD [address] [place] [address] PCP - General Internal Medicine 08/15/20 documented as of this encounter
--- OUTSIDE RECORDS SUMMARY | 2023-04-03 03:07 | External Medical Summary ---
Author Name Unknown Address Unknown Organization [id number]:LAB[facility]ATORY [facility] - [address] [place] [address] Laboratory Report Ordering Provider Test Date Status ABDIFATAH PANG 12/19/2022 07:53:34 Final Observation Date Value Abnormality Reference (Units ) Status WBC, Total 12/19/2022 07:53:34 10.83 Above high normal 4 .00-10.80 (K/uL) Final RBC 12/19/2022 07:53:34 4.81 4.50-5.25 (M/uL) Final Hemoglobin 12/19/2022 07:53:34 13.7 Below low normal 14 .0-16.8 (g/dL) Final HCT 12/19/2022 07:53:34 42.4 40.0-48.4 (%) Final MCV 12/19/2022 07:53:34 88.1 82.0-99.5 (fL) Final MCH 12/19/2022 07:53:34 28.5 27.0-34.0 (pg) Final MCHC 12/19/2022 07:53:34 32.3 32.0-36.0 (g/dL) Final RDW 12/19/2022 07:53:34 14.5 11.5-15.5 (%) Final Platelets 12/19/2022 07:53:34 247 140-400 (K /uL) Final MPV 12/19/2022 07:53:34 9.9 6.6-11.1 ( fL) Final Performing Location [facility] 0 - [address] [place] [address]
--- OUTSIDE RECORDS SUMMARY | 2023-04-03 03:07 | External Medical Summary ---
Author Name Unknown Address Unknown Organization [id number][place] [place] [address] [facility] [address] Laboratory Report Ordering Provider Test Date Status ABDIFATAH PANG 12/19/2022 07:53:34 Final Observation Date Value Abnormality Reference (Units ) Status HbA1C 12/19/2022 07:53:34 7.6 Above high normal 4. 0-5.6 (%) Final The use of HbA1c to monitor glycemic status is based on normal hemoglobin and HbA composition. This test should not be used in patients with abnormal hemoglobin that affects the half life of the red blood cell or the in vivo glycation rates. Glucose, estimated average 12/19/2022 07:53:34 171 Above high normal <126 (mg/dL) Rafi madison Performing Location [facility] [place] [address] [facility] [address]
--- OUTSIDE RECORDS SUMMARY | 2023-04-03 03:07 | External Medical Summary | Summary of Care ---
Author Name Unknown Organization [facility] Address [address] [place] [address] Phone [phone] Care Team Providers Care Gas Blender Name Role Phone Adam Siddiqi MD Primary Care Provider + Reason for Visit * Reason Comments Outpatient Testing Encounter Details Date Type Department Care Team Description 12/19/2022 Laboratory Laboratory, [facility] [address] [place] [address] [facility] [address] [place] [address] Elevated ferritin; Diabetes mellitus screening; Type 2 diabetes mellitus with hemoglobin A1c goal of less than 8.0% ([facility]); Mixed hyperlipidemia Allergies Active Allergy Reactions Severity Noted Date Comments Amoxicillin-Pot Clavulanate Nausea/vomiting 12/31/2018 Penicillins Other (Please comment) High 04/18/2006 "tongue gets bubbly" Last had it ampicillin 1994 documented as of this encounter (statuses as of 12/19/2022) Medications Medication Sig Dispensed Refills Start Date [...] as of this encounter (statuses as of 12/19/2022) Active Problems Problem Noted Date BPH with obstruction/lower urinary tract symptoms 06/05/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 04/18/2022 Bilateral exudative age-related macular degeneration 12/05/2021 Paroxysmal atrial fibrillation Type 2 diabetes mellitus with hemoglobin A1c goal of less than 8.0% 11/05/2020 Hypertensive heart disease with chronic systolic congestive heart failure 07/08/2018 Spinal stenosis of lumbar region with ne urogenic claudication 04/30/2018 HNP (herniated nucleus pulposus), lumbar 04/30/2018 Personal history of skin cancer 04/03/19 18 Overview: 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 [...] as of this encounter (statuses as of 12/19/2022) Resolved Problems Problem Noted Date Resolved Date [...] as of this encounter (statuses as of 12/19/2022) Immunizations Name Administration Dates Next Due COVID-19 [...] Office Visit Internal Medicine Adam Siddiqi MD [address] [place] [address] [place] [address] 01/11/2023 Office Visit Ophthalmology Gregor Solorzano, DO [address] [place] [address] 02/13/2023 Office Visit Cardiology Zbigniew Jolley, [address] [place] [address] Pending Results Name Type Priority Associated Diagnoses Date /Time FERRITIN Lab Routine Elevated ferritin 12/19/2022 7:53 AM EDT IRON SCREEN, INCLUDING TIBC Lab Routine Elevated ferritin 12/19/2022 7:53 AM EDT HEMOGLOBIN A1C Lab Routine Diabetes mellitus screening Type 2 diabetes mellitus with hemoglobin A1c goal of less than 8.0% ([facility]) 12/19/2022 7:53 AM EDT LIPID PANEL WITH DIRECT LDL IF TG IS HIGH Lab Routine Mixed hyperlipidemia 12/19/2022 7:53 AM EDT ALBUMIN / CREATININE RATIO, URINE Lab Routine Type 2 diabetes mellitus with hemoglobin A1c goal of less than 8.0% ([facility]) 12/19/2022 7:56 AM EDT Health Maintenance Due Date Last Done Comments COVID-19 Vaccine ( season) 2022 05/11/2020, 04/13/2020 Influenza Vaccine (FLU shot) (#1) 2022 12/05/2021, 11/18/2019, 12/23/2018, Additional history exists Albumin/Creatinine Ratio 11/28/2022 022, 11/04/2020, 10/23/2016, Additional history exists Diabetic Foot Exam 12/05/2022 12/05/2021, 0 11/03/2020, 03/31/2019, Additional history exists HbA1c 12/05/2022 06/05/2022, 11/04, 08/18/2021, Additional history exists Depression Screening 04/18/2023 04/18/2022 GFR 06/06/2023 06/05/2022, 03/05, 11/28/2021, Additional history exists DIABETES-EYE EXAM 09/12/2023 09/11/2022, , 08/20/2020 (Done elsewhere), Additional history exists DTaP,Tdap,and Td Vaccines (2 [...] this encounter Medical Devices Implanted Type Area Newborn Photographer Device Identifier Shelf Expiration Date Model / Serial / Lot Lens 21.0 Mx60 - [id number] - [id number] Implanted:Qty: 1 on 07/19/2015 by Florencio Roblero DO at OR [facility] Left: Eye BAUSCH [employer] LOMB : SURGICAL 08/02/2017 MX60-21.0 / [id number] / [id number] Lens 22.0 Mx60 - [id number] - [id number] Implanted:Qty: 1 on 08/23/2015 by Florencio Roblero DO at OR [facility] Right: Eye BAUSCH [employer] LOMB : SURGICAL 01/02/2018 MX60-22.0 / [id number] / [id number] documented as of this encounter Procedures Procedure Name Priority Date/Time Associated Diagnosis Comments DIFFERENTIAL, AUTOMATED Routine 12/19/2022 7:53 AM EDT Elevated ferritin CBC Routine 12/19/2022 7:53 AM EDT Elevated ferritin CBC Routine 12/19/2022 7:53 AM EDT Elevated ferritin documented in this encounter Results * (ABNORMAL) DIFFERENTIAL, AUTOMATED (12/19/2022 7:53 AM EDT) WBC 10.83(H) 4.00 - 10.80 K/uL 12/19/2022 8:07 AM EDT [facility] [place] [facility] Neutrophils % 61.7 40.0 - 75.0 % 12/19/2022 8:07 AM EDT [facility] [place] [facility] Lymphocytes % 26.2 18.0 - 42.0 % 12/19/2022 8:07 AM EDT [facility] [place] [facility] [facility] Monocytes % 9.1 1.0 - 11.0 % 12/19/2022 8:07 AM EDT [facility] [place] [facility] Eosinophils % 2.7 0.0 - 6.0 % 12/19/2022 8:07 AM EDT [facility] [place] [facility] Basophils % 0.3 0.0 - 2.0 % 12/19/2022 8:07 AM EDT [facility] [place] [facility] Absolute Neutrophils 6.68 1.80 - 7.70 K/uL 12/19/2022 8:07 AM EDT [facility] [place] [facility] Absolute Lymphocytes 2.84 1.00 - 4.80 K/ul 12/19/2022 8:07 AM EDT [facility] [place] [facility] Absolute Monocytes 0.99 0.00 - 1.10 K/uL 12/19/2022 8:07 AM EDT LAB[facility] [place] [facility] Absolute Eosinophils 0.29 0.00 - 0.70 K/uL 12/19/2022 8:07 AM EDT LAB[facility]ORY [place] [facility]10 Absolute Basophils 0.03 0.00 - 0.20 K/uL 12/19/2022 8:07 AM EDT LAB[facility]ORY [place] 57-10 Blood Venous blood specimen / Unknown Venipuncture / Unknown 12/19/2022 7:53 AM EDT 12/19/2022 7:53 AM EDT Adam Siddiqi MD LAB BLOOD [facility]A [facility]ES [facility] [place] [address] [place] [address] * (ABNORMAL) CBC (12/19/2022 7:53 AM EDT) WBC 10.83(H) 4.00 - 10.80 K/uL 12/19/2022 8:07 AM EDT LAB[facility]ATORY [place] [facility] RBC 4.81 4.50 - 5.25 M/uL 12/19/2022 8:07 AM EDT LAB[facility]ORY [place] 57[facility] HGB 13.7(L) 14.0 - 16.8 g/dL 12/19/2022 8:07 AM EDT LAB[facility]ORY [place] [facility] HCT 42.4 40.0 - 48.4 % 12/19/2022 8:07 AM EDT LAB[facility]ORY [place] [facility] MCV 88.1 82.0 - 99.5 fL 12/19/2022 8:07 AM EDT LAB[facility]ORY [place] [facility] MCH 28.5 27.0 - 34.0 pg 12/19/2022 8:07 AM EDT LAB[facility]ORY [place] [facility] MCHC 32.3 32.0 - 36.0 g/dL 12/19/2022 8:07 AM EDT LAB[facility]ORY [place] [facility] RDW 14.5 11.5 - 15.5 % 12/19/2022 8:07 AM EDT [facility] [place] [facility] PLT 247 140 - 400 K/uL 12/19/2022 8:07 AM EDT [facility] [place] [facility] MPV 9.9 6.6 - 11.1 fL 12/19/2022 8:07 AM EDT [facility] [place] [facility] Blood Venous blood specimen / Unknown Venipuncture / Unknown 12/19/2022 7:53 AM EDT 12/19/2022 7:53 AM EDT Adam Siddiqi MD LAB BLOOD [facility] [place] [facility] [facility] [place] [address] documented in this encounter Visit Diagnoses Diagnosis Elevated ferritin Other abnormal blood chemistry Diabetes mellitus screening Screening for diabetes mellitus Type 2 diabetes mellitus with hemoglobin A1c [...] and were consensually agreed upon. Care Teams Gas Blender Relationship Specialty Start Date End Date Adam Siddiqi MD [address] [place] [address], [place] [address] PCP - General Internal Medicine 08/15/20 documented as of this encounter
--- OUTSIDE RECORDS SUMMARY | 2023-04-03 03:07 | External Medical Summary | Summary of Care ---
Author Name Unknown Organization [facility] Address [address] [place] [address] Phone [phone] Care Team Providers Care Broom Man Name Role Phone Adam Gardiner MD Primary Care Provider + Reason for Visit * Reason Comments eRx-Medication Refill Encounter Details Date Type Department Care Team Description 10/30/2022 Refill General Internal Medicine [facility] Ivis Sharp [address] [facility] [place] [phone] Jatin Sims PA-C [address] [facility] [place] [address] BPH with obstruction/lower urinary tract symptoms Allergies Active Allergy Reactions Severity Noted Date Comments Amoxicillin-Pot Clavulanate Nausea/vomiting 12/31/2018 Penicillins Other (Please comment) High 04/18/2006 "tongue gets bubbly" Last had it ampicillin 1995 documented as of this encounter (statuses as of 10/31/2022) Medications Medication Sig Dispensed Refills Start Date [...] 11/24/2020 Active Acetaminophen 500 MG Oral Tablet (Tylenol)Indicati [...] cardiomyopathy,He art failure, systolic, due to CAD (HCC) Take 1 Tablet by mouth in the morning. 90 Tablet 1 06/19/2022 Active Furosemide 20 MG Oral Tablet (Lasix)Indication s:Heart failure, systolic, due to CAD (HCC) Take [...] TWICE DAILY 180 Tablet 3 09/06/2022 Active Atorvastatin Calcium 80 MG Oral Tablet (Lipitor) TAKE 1 TABLET BY MOUTH EVERY MORNING 90 Tablet 1 09/07/2022 Active Finasteride 5 MG Oral Tablet (Proscar) Take 1 Tablet by mouth in the morning. 30 Tablet 2 09/11/2022 Active PreserVision AREDS 2+Multi Vit Oral Capsule Take by mouth. 0 Active Tamsulosin HCl 0.4 MG Oral Capsule (Flomax)Indicatio ns:BPH with obstruction/lower urinary tract symptoms TAKE 1 CAPSULE BY MOUTH AT BEDTIME 30 Capsule 5 10/31/2022 Active Tamsulosin HCl 0.4 MG Oral Capsule (Flomax)Indicatio ns:BPH with obstruction/lower urinary tract symptoms Take 1 Capsule by mouth at bedtime. 30 Capsule 5 04/18/2022 3 Discontinued documented as of this encounter (statuses as of 10/31/2022) Active Problems Problem Noted Date BPH with [...] skin cancer 04/03/19 18 Overview: SCC right buddhist - 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 [...] as of this encounter (statuses as of 10/31/2022) Resolved Problems Problem Noted Date Resolved Date [...] as of this encounter (statuses as of 10/31/2022) Immunizations Name Administration Dates Next Due COVID-19 mRNA, LNP-s, No Pre serve, 2-Dose Series ([employer]izer) 05/11/2020,04/13/2020 Pneumococcal Conjugate Vacc, 13 Valent (Prevnar) 01/07/2015 Pneumococcal Polysaccharide PPV23 (Pneumovax) 05/12/2016 Season Influenza, Quad, PF, Adjuvanted, 65+ Yrs, IM (FLUAD) 11/18/2019 Seasonal Influenza, PF, 6 mo ns & Above, IM , (Flulaval) 01/31/2018 Seasonal Influenza, Quadriva lent Hd (Fluzone [...] encounter Miscellaneous Notes * Telephone Encounter - Shaylee Muniz RPh - 10/31/2022 12:37 PM EDTSigned Prescriptions: Disp Refills Tamsulosin HCl 0.4 MG Oral Capsule (Flomax)30 Cap*5 Sig: TAKE 1 CAPSULE BY MOUTH AT BEDTIMEAuthorizing Provider: ADAM GARDINER User: SHAYLEE MUNIZ documented in this encounter Plan of Treatment Upcoming Encounters Date Type Specialty Care Team Description 11/02/2022 Office Visit Ophthalmology Gregor Solorzano, DO [address] [place] [address] 12/22/2022 Office Visit Internal Medicine Adam Gardiner MD [address] [place] [address], [place] [address] 02/13/2023 Office Visit Cardiology Zbigniew Jolley DO [address] [place] [address] Health Maintenance Due Date Last Done Comments COVID-19 Vaccine (3 - Pfizer risk series) 06/08/2020 05/11/2020, 04/13/2020 Influenza Vaccine (FLU shot) (#1) 2022 12/05/2021, 11/18/2019, 12/23/2018, Additional history exists Albumin/Creatinine Ratio 11/28/2022 022, 11/04/2020, 10/23/2016, Additional history exists DIABETES-FOOT EXAM 12/05/2022 12/05/2021, 0 11/03/2020, 03/31/2019, Additional history exists HbA1c 12/05/2022 06/05/2022, 11/04, 08/18/2021, Additional history exists Depression Screening, Annual for Pts 12 and Over 04/18/2023 04/18/2022 GFR 06/06/2023 06/05/2022, 03/05, 11/28/2021, [...] this encounter Medical Devices Implanted Type Area Networking Administrator Device Identifier Shelf Expiration Date Model / Serial / Lot Lens 21.0 Mx60 - [id number] - [id number] Implanted:Qty: 1 on 07/19/2015 by Florencio Roblero DO at OR [facility] Left: Eye BAUSCH [employer] LOMB : SURGICAL 08/02/2017 MX60-21.0 / [id number] / [id number] Lens 22.0 Mx60 - [id number] - [id number] Implanted:Qty: 1 on 08/23/2015 by Florencio Roblero DO at OR [facility] Right: Eye BAUSCH & LOMB : SURGICAL 01/02/2018 MX60-22.0 / [id number] / [id number] documented as of this encounter Visit Diagnoses Diagnosis BPH with obstruction/lower urinary tract symptoms Hypertrophy of prostate with urinary obstruction and other lower urinary tract symptoms (LUTS) documented in this encounter Advance Directives Latest [...] and were consensually agreed upon. Care Teams Broom Man Relationship Specialty Start Date End Date Adam Gardiner MD [address] [place] [address] PCP - General Internal Medicine 08/15/20 documented as of this encounter
--- OUTSIDE RECORDS SUMMARY | 2023-04-03 03:07 | External Medical Summary ---
Author Name Unknown Address Unknown Organization K01:LAB[facility]ATORY [facility] - [address] [place] [address] Laboratory Report Ordering Provider Test Date Status ABDIFATAH PANG 12/19/2022 07:53:34 Final Observation Date Value Abnormality Reference (Units ) Status Ferritin 12/19/2022 07:53:34 921 Above high normal 30 -400 (ng/mL) Final Performing Location LABORATORY [facility] - [address] [place] [address]
--- OUTSIDE RECORDS SUMMARY | 2023-04-03 03:07 | External Medical Summary ---
Author Name Unknown Address Unknown Organization [id number]:LABORATORY [place] [facility] - [address] [place] [address] Laboratory Report Ordering Provider Test Date Status ABDIFATAH PANG 12/19/2022 07:53:34 Final Observation Date Value Abnormality Reference (Units ) Status SYNC LEUKOCYTES IN BLOOD BY AUTOMATED COUNT 12/19/2022 07:53:34 10.83 Above high normal 4.00-10.80 (K/uL) Final Segs 12/19/2022 07:53:34 61.7 40.0-75.0 (%) Final Lymphs % 12/19/2022 07:53:34 26.2 18.0-42.0 (%) Final Monos 12/19/2022 07:53:34 9.1 1.0-11.0 (%) Final Eosinophils 12/19/2022 07:53:34 2.7 0.0-6.0 (%) Final Basos 12/19/2022 07:53:34 0.3 0.0-2.0 (%) Final Absolute Segs 12/19/2022 07:53:34 6.68 1.80-7.70 (K/uL) Final Lymphs, absolute 12/19/2022 07:53:34 2.84 1.00-4.80 (K/ul) Final Monos, Abs 12/19/2022 07:53:34 0.99 0.00-1.10 (K/uL) Final Eos, Abs 12/19/2022 07:53:34 0.29 0.00-0.70 (K/uL) Final Basos, Abs 12/19/2022 07:53:34 0.03 0.00-0.20 (K/uL) Final Performing Location [facility] - [address] [place] [address]
--- OUTSIDE RECORDS SUMMARY | 2023-04-03 03:07 | External Medical Summary ---
Author Name Unknown Address Unknown Organization K01:LAB[facility]ORY [facility] [place] - [address] [facility] [address] Laboratory Report Ordering Provider Test Date Status ABDIFATAH PANG 12/19/2022 07:53:34 Final Observation Date Value Abnormality Reference (Units ) Status Triglyceride 12/19/2022 07:53:34 89 <=174 ( mg/dL) Final Triglyceride Reference Range s (mg/dL):
<150 Acceptable
150-174 Borderline high
175-499 High
>=500 Very high Cholesterol 12/19/2022 07:53:34 126 <200 (mg /dL) Final Total Cholesterol Reference Ranges (mg/dL):
<200 Desirable
200-239 Borderline high
>=240 High HDL 12/19/2022 07:53:34 42 >39 (mg/dL ) Final HDL Cholesterol Reference Ra nges (mg/dL):
>=60 High (Desirable)
<50 Low (Undesirable) For Females
<40 Low (Undesirable) For Males NON-HDL CHOLESTEROL 12/19/2022 07:53:34 84 <=159 (mg/dL) Final Non-HDL Cholesterol Referenc e Range (mg/dL):
<100 Target level for high risk ASCVD patient
<130 Optimal for general population
130-159 Near optimal for general population
160-189 Borderline High
190-219 High
>=220 Very High LDL, (calculated) 12/19/2022 07:53:34 66 <= 129 (mg/dL) Final LDL Cholesterol Reference Ra nges (mg/dL):
<70 Target level for high risk ASCVD patient
<100 Optimal for general population
100-129 Near optimal for general population
130-159 Borderline high
160-189 High
>=190 Very high Performing Location LABORATORY [facility] [place] - [address] [facility] [address]
--- OUTSIDE RECORDS SUMMARY | 2023-04-03 03:07 | External Medical Summary | Summary of Care ---
Author Name Unknown Organization [facility] Address [address] [place] [address] Phone [phone] Care Team Providers Care Manager Of Radiology Name Role Phone Adam Siddiqi MD Primary Care Provider + Reason for Visit * Reason Comments Follow Up F/U -DIL/OCT OD;charles vickey concerns * Precert (Within 10 days (routine)) - Authorized Specialty Diagnoses / Procedures Referred By Luly covarrubias Referred To Contact Ophthalmology Diagnoses Exudative age-related macular degeneration, right eye, with active choroidal neovascularization (HCC) Procedures OR AFLIBERCEPT INJECTION OR INTRAVITREAL NJX PHARMACOLOGIC AGT SPX Gregor Solorzano DO [address] [place] [address] Referral ID Status Reason Start Date Expiration Date V isits Requested Visits Authorized [id number] Authorized Precert 08/31/2022 03/04/2099 999 999 Encounter Details Date Type Department Care Team Description 11/02/2022 Office Visit Ophthalmology, [facility] [address] [place] [address] Gregor Solorzano DO [address] [place] [address] Exudative age-related macular degeneration of right eye with active choroidal neovascularization (HCC)* Allergies Active Allergy Reactions Severity Noted Date Comments Amoxicillin-Pot Clavulanate Nausea/vomiting 12/31/2018 Penicillins Other (Please comment) High 04/18/2006 "tongue gets bubbly" Last had it ampicillin 1994 documented as of this encounter (statuses as of 11/02/2022) Medications Medication Sig Dispensed Refills Start Date [...] cardiomyopathy,Heart failure, systolic, due to CAD (HCC) Take 1 Tablet by mouth in the morning. 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 Eye vitals reviewed. Mood and Affect: normal HPI: Janis Mckeon is a 81 year old male who presents for evaluation of AMD Base Eye Exam Visual Acuity (Snellen - Linear) Right Left Dist sc 20/40 -2 20/25 Dist ph sc NI Tonometry (Tonopen, 8:12 AM) Right Left Pressure 14 17 Pupils APD Right None Left None Visual Apodaca (Counting fingers) Right Left Full Full Extraocular Movement Right Left Full, Ortho Full, Ortho Neuro/Psych Oriented x3: Yes Mood/Affect: Normal Dilation Both eyes: 0.5% Proparacaine @ 8:12 AM Dilation #2 Right eye: 1.0% Mydriacyl, 2.5% Phenylephrine @ 8:12 AM Dilation Comments Patient cautioned that effects [...] OCT Interpretation: OD: PED w/ recurrent srfluid, srmounding--worse, prior improved 34um prior worse 54um prior improved, prior improved OS: 04/28/2022: drusen, no cme/srfluid A/P: 1. Age-Related Macular Degeneration OU OD: wet -Avastin 08/31/22, 06/29/22, 02/10/22, 12/09/21, 10/28/21, 09/29/21 -9 weeks--better at 9 weeks, worse at 9 and 11 weeks -Eylea today 11/02/2022 -on Eliquis and ASA OS: dry -recommend [...] Pseudophakia OU -stable F/u 8-10 weeks, OCT OD Gregor Solorzano, DO 3 CC: Koko Hough, OD CC: PCP: Adam Siddiqi MD TIMEOUT PROCEDURE: correct patient identity-YES correct procedure and consent-YES verified side and site-YES correct patient position-YES all necessary equipment/prior studies present-YES reviewed special requirements of this patient-YES PROCEDURE: Intravitreal injection of Eylea (aflibercept) 2mg OS INFORMED CONSENT: Risks, benefits and alternatives have [...] Nursing Notes * Isi Delarosa RN - 11/02/2022 8:28 AM EDT Janis Mckeon to receive first Eylea 2mg Injection of the Right eye. Correct eye confirmed with patient and marked by Gregor Solorzano DO Eylea 2mg lot # [id number] Exp. Date: 03/2023 * Isi Delarosa RN - 11/02/2022 8:04 AM EDT Janis Mckeon is a 81 year old year old male who presents for AMD OU. Last Office Visit: 08/31/2022 (in office), Visit date not found (telemedicine) Patient currently states no change in vision. Are you diabetic? No Do you drive? yes OCT image(s) of right eye acquired and filed/scanned into chart. documented in this encounter Plan of Treatment Upcoming Encounters Date Type Specialty Care Team Description 12/22/2022 Office Visit Internal Medicine DobersteinAdam MD [address] [facility] [place] [address] 01/11/2023 Office Visit Ophthalmology Gregor Solorzano, DO [address] [place] [address] 02/13/2023 Office Visit Cardiology Zbigniew Jolley, DO [address] [place] [address] Health Maintenance Due Date Last Done Comments [...] this encounter Medical Devices Implanted Type Area Wire Spinner Device Identifier Shelf Expiration Date Model / Serial / Lot Lens 21.0 Mx60 - [id number] - [id number] Implanted:Qty: 1 on 07/19/2015 by Floerncio Roblero DO at OR [facility] Left: Eye [employer] LOMB : SURGICAL 08/02/2017 MX60-21.0 / [id number] / [id number] Lens 22.0 Mx60 - [id number] - [id number] Implanted:Qty: 1 on 08/23/2015 by Florencio Roblero DO at OR [facility] Right: Eye BAUSCH [employer] LOMB : SURGICAL 01/02/2018 MX60-22.0 / [id number] / [id number] documented as of this encounter Visit Diagnoses Diagnosis Exudative age-related macular degeneration of right eye with active choroidal neovascularization (HCC)- Primary documented in this encounter Advance Directives [...] and were consensually agreed upon. Care Teams Manager Of Radiology Relationship Specialty Start Date End Date Adam Siddiqi MD [address] [place] [address], [place] [address] PCP - General Internal Medicine 08/15/20 documented as of this encounter
--- OUTSIDE RECORDS SUMMARY | 2023-04-03 03:07 | External Medical Summary | Summary of Care ---
Author Name Unknown Organization [facility] Address [address] [place] [address] Phone [phone] Care Team Providers Care Extrusion Operator Name Role Phone Adam Siddiqi MD Primary Care Provider + Reason for Visit * Reason Onset Date Comments Medication Refill 11/15/2022 Encounter Details Date Type Department Care Team Description 11/15/2022 [facility] [address] [facility] [place] [address] Adam Siddiqi MD [address] [facility] [place] [address] HTN, goal below 140/90 Allergies Active Allergy Reactions Severity Noted Date Comments Amoxicillin-Pot Clavulanate Nausea/vomiting 12/31/2018 Penicillins Other (Please comment) High 04/18/2006 "tongue gets bubbly" Last had it ampicillin 1995 documented as of this encounter (statuses as of 11/16/2022) Medications Medication Sig Dispensed Refills Start Date [...] as of this encounter (statuses as of 11/16/2022) Active Problems Problem Noted Date BPH with [...] skin cancer 04/03/19 18 Overview: SCC right church - 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 In the morning..Refused By: SWAPNIL MURPHY for Refusal:Too soon documented in this encounter Plan of Treatment Upcoming Encounters Date Type Specialty Care Team Description 12/22/2022 Office Visit Internal Medicine Adam Siddiqi MD [address] [place] [address] 01/11/2023 Office Visit Ophthalmology Gregor Solorzano, DO [address] [place] [address] 02/13/2023 Office Visit Cardiology Zbigniew Jolley, DO [address] [place] [address] Health Maintenance Due Date Last Done Comments COVID-19 Vaccine (3 - Pfizer series) 07/06/2020 05/11/2020, 04/13/2020 Influenza Vaccine (FLU shot) (#1) [...] this encounter Medical Devices Implanted Type Area Java Jsf Developer Device Identifier Shelf Expiration Date Model / Serial / Lot Lens 21.0 Mx60 - [id number] - [id number] Implanted:Qty: 1 on 07/19/2015 by Florencio Roblero DO at OR [facility] Left: Eye [employer]CH [employer] LOMB : SURGICAL 08/02/2017 MX60-21.0 / [id number] / [id number] Lens 22.0 Mx60 - [id number] - [id number] Implanted:Qty: 1 on 08/23/2015 by Florencio Roblero DO at OR [facility] Right: Eye BAUSCH [employer] LOMB : SURGICAL 01/02/2018 MX60-22.0 / [id number] / [id number] documented as of this encounter Visit Diagnoses Diagnosis HTN, goal below 140/90 Unspecified essential hypertension documented in this encounter Advance Directives Latest [...] and were consensually agreed upon. Care Teams Extrusion Operator Relationship Specialty Start Date End Date Adam Siddiqi MD [address] [place] [address], [place] [address] PCP - General Internal Medicine 08/15/20 documented as of this encounter
--- OUTSIDE RECORDS SUMMARY | 2023-04-03 03:07 | External Medical Summary | Summary of Care ---
Author Name Unknown Organization [facility] Address [address] [place] [facility] [place] [address] Phone [phone] Care Team Providers Care Mate Ship Name Role Phone Adam Siddiqi MD Primary Care Provider + Reason for Visit * Reason Comments Follow Up F/U -DIL/OCT OD;charles vickey concerns * Precert (Within 10 days (routine)) - Authorized Specialty Diagnoses / Procedures Referred By Luly covarrubias Referred To Contact Ophthalmology Diagnoses Exudative age-related macular degeneration, right eye, with active choroidal neovascularization (HCC) Procedures [place] AFLIBERCEPT INJECTION [place] INTRAVITREAL NJX PHARMACOLOGIC AGT SPX Gregor Solorzano DO [address] [place] [address] Referral ID Status Reason Start Date Expiration Date V isits Requested Visits Authorized [id number] Authorized Precert 08/31/2022 03/04/2099 999 999 Encounter Details Date Type Department Care Team Description 11/02/2022 Office Visit Ophthalmology, [facility] [address] [place] [address] Gregor Solorzano DO [address] [place] [address] Exudative age-related macular degeneration of right eye [...] skin cancer 04/03/19 18 Overview: SCC right mandaeism - 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 [...] - 11/02/2022 8:15 AM EDT [facility] [place] Nursing notes [...] Gregor Solorzano DO Eylea 2mg lot # [id number] Exp. Date: 03/2023 * Isi Delarosa RN [...] MD [address] [facility] [place] [address] 01/11/2023 Office Visit Ophthalmology Gregor Solorzano, DO [address] [place] [address] 02/13/2023 Office Visit Cardiology Zbigniew Jolley, DO [address] [place] [address] Health Maintenance Due Date Last Done Comments [...] this encounter Medical Devices Implanted Type Area Owner/Operator Device Identifier Shelf Expiration Date Model / Serial / Lot Lens 21.0 Mx60 - [id number] - [id number] Implanted:Qty: 1 on 07/19/2015 by Florencio Roblero DO at OR [facility] Left: Eye BAUSCH [employer] LOMB : SURGICAL 08/02/2017 MX60-21.0 / [id number] / [id number] Lens 22.0 Mx60 - [id number] - [id number] Implanted:Qty: 1 on 08/23/2015 by Florencio Roblero DO at OR [facility] Right: Eye BAUSCH [employer] LOMB : SURGICAL 01/02/2018 MX60-22.0 / [id number] / [id number] documented as of this encounter Visit Diagnoses [...] Sun11/02/23 at 0835, For 365 days Given 11/02/2022 8:59 AM EDT 2 mg Eye Right ROPivacaine (Naropin) inj 1.5 mg 1.5 mg, Injection, PRN Other, Starting on Vanessa 11/02/22 at 0836, Until Sun11/02/23 at 0835, For 365 days Given 11/02/2022 8:58 AM EDT 1.5 mg Eye Right documented in this encounter Advance Directives [...] and were consensually agreed upon. Care Teams Mate Ship Relationship Specialty Start Date End Date Adam Siddiqi MD [address] [place] [address], [place] [address] PCP - General Internal Medicine 08/15/20 documented as of this encounter
--- OUTSIDE RECORDS SUMMARY | 2023-04-03 03:07 | External Medical Summary | Summary of Care ---
Author Name Unknown Organization [facility] Address [address] [place] [address] Phone [phone] Care Team Providers Care Glass Smoother Name Role Phone Adam Gardiner MD Primary Care Provider + Reason for Visit * Reason Onset Date Comments Medication Refill 12/17/2022 Encounter Details Date Type Department Care Team Description 12/17/2022 Refill General Internal Medicine [facility] Ivis Sharp [address] [facility] [place] [address] Valentina Ramirez MD [address] [facility] [place] [address] Allergies Active Allergy Reactions Severity Noted Date Comments Amoxicillin-Pot Clavulanate Nausea/vomiting 12/31/2018 Penicillins Other (Please comment) High 04/18/2006 "tongue gets bubbly" Last had it ampicillin 1995 documented as of this encounter (statuses as of 12/18/2022) Medications Medication Sig Dispensed Refills Start Date End Date Status ASPIRIN 81 MG PO TABSIndications:Mi xed dyslipidemia one tab by mouth daily 34 0 04/18/2006 Active OMEGA-3 FISH OIL 1000 MG PO CAPSIndications:Ol d myocardial infarct,Mixed dyslipidemia Take one capsule by mouth twice a day 60 5 02/08/2009 Active Polyethylene Glycol 3350 17 GM/SCOOP Oral PowderIndications: Constipation, unspecified constipation type Take 17 g by mouth as needed for Constipation. Dissolve one heaping tablespoon in 8 ounces of water or juice. 17 g 0 11/24/2020 Active Acetaminophen 500 MG Oral Tablet (Tylenol)Indicatio [...] 06/19/2022 Active Furosemide 20 MG Oral Tablet (Lasix)Indications [...] EVERY MORNING 90 Tablet 1 09/07/2022 Active PreserVision AREDS 2+Multi Vit Oral Capsule Take by mouth. 0 Active Tamsulosin HCl 0.4 MG Oral Capsule (Flomax)Indication s:BPH with obstruction/lower urinary tract symptoms TAKE 1 CAPSULE BY MOUTH AT BEDTIME 30 Capsule 5 10/31/2022 Active Finasteride 5 MG Oral Tablet (Proscar) Take 1 Tablet by mouth in the morning. 90 Tablet 1 12/18/2022 Active Finasteride 5 MG Oral Tablet (Proscar) Take 1 Tablet by mouth in the morning. 30 Tablet 2 09/11/2022 3 Discontinue d(Refill) Hospital, Clinic, or Other Facility Administered Medication [...] as of this encounter (statuses as of 12/18/2022) Active Problems Problem Noted Date BPH with [...] skin cancer 04/03/19 18 Overview: SCC right adventist - 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 [...] as of this encounter (statuses as of 12/18/2022) Resolved Problems Problem Noted Date Resolved Date [...] as of this encounter (statuses as of 12/18/2022) Immunizations Name Administration Dates Next Due COVID-19 [...] encounter Miscellaneous Notes * Telephone Encounter - Koko Mccarthy RPh - 12/18/2022 11:44 AM EDTSigned Prescriptions: Disp Refills Finasteride 5 MG Oral Tablet (Proscar) 90 Tab*1 Sig: Take 1 Tablet by mouth in the morning.Authorizing Provider: ADAM GARDINER User: HANANE MCCARTHY documented in this encounter Plan of Treatment Upcoming Encounters Date Type Specialty Care Team Description 12/19/2022 Laboratory Laboratory [place], Navin Oliva [address] [address] 12/22/2022 Office Visit Internal Medicine Adam Gardiner MD [address] [place] [address], [place] [address] 01/11/2023 Office Visit Ophthalmology Gregor Solorzano DO [address] [place] [address] 02/13/2023 Office Visit Cardiology Zbigniew Jolley, DO [address] [place] [address] Health Maintenance Due Date Last Done Comments COVID-19 Vaccine (2022- season) 2022 05/11/2020, 04/13/2020 [...] this encounter Medical Devices Implanted Type Area Production Team Advisor Device Identifier Shelf Expiration Date Model / Serial / Lot Lens 21.0 Mx60 - [id number] - [id number] Implanted:Qty: 1 on 07/19/2015 by Florencio Roblero DO at OR [facility] Left: Eye BAUSCH [employer] LOMB : SURGICAL 08/02/2017 MX60-21.0 / [id number] / [id number] Lens 22.0 Mx60 - [id number] - [id number] Implanted:Qty: 1 on 08/23/2015 by Florencio Roblero DO at OR [facility] Right: Eye BAUSCH & LOMB : SURGICAL 01/02/2018 MX60-22.0 / [id number] / [id number] documented as of this encounter Advance Directives [...] and were consensually agreed upon. Care Teams Glass Smoother Relationship Specialty Start Date End Date Adam Gardiner MD [address] [place] [address], [place] [address] PCP - General Internal Medicine 08/15/20 documented as of this encounter
--- OUTSIDE RECORDS SUMMARY | 2023-04-03 03:07 | External Medical Summary | Summary of Care ---
Author Name Unknown Organization [facility] Address [address] [place] [address] Phone [phone] Care Team Providers Care Steel Turner Name Role Phone Adam Gardiner MD Primary Care Provider + Reason for Visit * Reason Onset Date Comments Medication Refill 12/17/2022 Encounter Details Date Type Department Care Team Description 12/17/2022 [facility]ill [facility] [address] [facility] [place] [address] Adam Gardiner MD [address] [facility] [place] [address] Allergies Active Allergy Reactions Severity Noted Date [...] the morning.. 90 Tablet 0 12/18/2022 Active Atorvastatin Calcium 80 MG Oral Tablet (Lipitor) TAKE 1 TABLET BY MOUTH EVERY MORNING 90 Tablet 1 09/07/2022 3 Discontinue d(Refill) Hospital, Clinic, or Other [...] skin cancer 04/03/19 18 Overview: SCC right jain - 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 [...] encounter Miscellaneous Notes * Telephone Encounter - Louis Sanders [facility] - 12/18/2022 2:54 PM EDTSigned Prescriptions: Disp Refills Atorvastatin Calcium 80 MG Oral Tablet (Li*90 Tab*0 Sig: Take 1Tablet by mouth in the morning. In the morning..Authorizing Provider: ADAM GARDINERUser: LOUIS SANDERS * Telephone Encounter - Louis Sanders RP - 12/18/2022 2:53 PM EDT RX authorized. Zero refills given until upcoming upcomming lab appointment. Thank you, Louis Sanders, PharmD Clinical Pharmacist [facility] 12/18/22 2:53 PM [phone] documented in this encounter Plan of Treatment Upcoming Encounters Date Type Specialty Care Team Description 12/19/2022 Laboratory Laboratory [facility], [facility] [address] [place] [address] 12/22/2022 Office Visit Internal Medicine Adam Gardiner MD [address] [place] [address], [place] [address] 01/11/2023 Office Visit Ophthalmology Gregor Solorzano, DO [address] [place] [address] 02/13/2023 Office Visit Cardiology Zbigniew Jolley, [address] [place] [address] Health Maintenance Due Date Last Done Comments [...] this encounter Medical Devices Implanted Type Area Sheet Metal Welder Device Identifier Shelf Expiration Date Model / Serial / Lot Lens 21.0 Mx60 - [id number] - [id number] Implanted:Qty: 1 on 07/19/2015 by Florencio Roblero DO at OR [facility] Left: Eye BAUSCH & LOMB : SURGICAL 08/02/2017 MX60-21.0 / [id number] / [id number] Lens 22.0 Mx60 - [id number] - [id number] Implanted:Qty: 1 on 08/23/2015 by Florencio Roblero DO at OR [facility] Right: Eye BAUSCH & LOMB : SURGICAL 01/02/2018 MX60-22.0 / [id number] / [id number] documented as of this encounter Advance Directives [...] and were consensually agreed upon. Care Teams Steel Turner Relationship Specialty Start Date End Date Adam Gardiner MD [address] [place] [address], [place] [address] PCP - General Internal Medicine 08/15/20 documented as of this encounter
--- OUTSIDE RECORDS SUMMARY | 2023-04-03 03:07 | External Medical Summary ---
Author Name Unknown Address Unknown Organization K[facility] - [address] [place] [address] Laboratory Report Ordering Provider Test Date Status ABDIFATAH PANG 12/19/2022 07:53:34 Final Observation Date Value Abnormality Reference (Units ) Status Iron 12/19/2022 07:53:34 81 45-176 (ug/dL) Final Iron-binding capacity 12/19/2022 07:53:34 226 Below low normal 250-425 (ug/dL) Final Transferrin Sat % 12/19/2022 07:53:34 36 15-55 (%) Final Performing Location [facility] - [address] [place] [address]
--- OUTSIDE RECORDS SUMMARY | 2023-04-03 03:07 | External Medical Summary ---
Author Name Unknown Address Unknown Organization K01:[facility] - [address] [place] [address] Laboratory Report Ordering Provider Test Date Status DO BIRDJULIEN 12/19/2022 07:56:18 Final Normal: <30 mg/g creatinine< br/>High: 30-300 mg/g creatinine
Very High: >300 mg/g creatinine
Nephrotic: >2200 mg/g creatinine Observation Date Value Abnormality Reference (Units ) Status Albumin, Urine 12/19/2022 07:56:18 1.28 (mg/dL) Final Creatinine, Urine 12/19/2022 07:56:18 206 (mg/dL) Final Albumin/Creatinine [Mass Ratio] in Urine 12/19/2022 07:56:18 6 <30 (mg/g Creat) Final Performing Location [facility] - [address] [place] [address]
[2023-04-03 03:19] LABS: Troponin I High Sensitivity 16.8 pg/ml (0-20)
[2023-04-03] MEDS ORDERED: LIDOCAINE 1% LOCAL 20 ML VIAL ONE ×2 (03:55→18:35)
[2023-04-03] MEDS ORDERED: VANCOMYCIN CONSULT ACTIVE PRN (04:03)
[2023-04-03] MEDS ORDERED: VANCOMYCIN HCL 2,250 MG in SODIUM CHLORIDE 0.9% 500 ML IV ONE (04:03)
[2023-04-03] MEDS ORDERED: LIDOCAINE 1% LOCAL 20 ML VIAL INJ ONE (04:09)
--- NOTE | 2023-04-03 04:09 | Emergency Department Note ---
History of Present Illness General Chief complaint: Knee Injury/Pain Stated complaint: WEAKNESS, HARD TO WALK, LT KNEE EDEMA, STIFF NECK Time Seen by Provider: 04/03/23 00:49 History of Present Illness Maximum Pain Intensity: 0 I was asked to do the joint aspiration of this patient. Please see my attendings note for further information regarding the patient's treatment plan of care. Home Medications Medication Instructions Recorded Confirmed Type atorvastatin 80 mg tablet 80 mg PO QAM 11/26/18 04/03/23 History aspirin 81 mg tablet,delayed 81 mg PO QAM 01/03/19 04/03/23 History release metoprolol succinate 50 mg 50 mg PO QAM 07/26/20 04/03/23 History tablet,extended release 24 hr apixaban 5 mg tablet (Eliquis) 5 mg PO BID #60 tabs 02/07/21 04/03/23 Rx furosemide 20 mg tablet 20 mg PO QAM #30 tabs 02/07/21 04/03/23 Rx lisinopril 2.5 mg tablet 2.5 mg PO QAM 05/30/21 04/03/23 History spironolactone 25 mg tablet 12.5 mg PO QAM 05/30/21 04/03/23 History finasteride 5 mg tablet 5 mg PO QAM 08/02/22 04/03/23 History tamsulosin 0.4 mg capsule 0.4 mg PO HS 08/02/22 04/03/23 History Allergies Allergy/AdvReac Type Severity Reaction Status Date / Time Penicillins Allergy Severe TONGUE Verified 04/03/23 02:23 SWELLING amoxicillin [From Augmentin] AdvReac Unknown Vomiting Verified 04/03/23 02:23 clavulanic acid AdvReac Unknown Vomiting Verified 04/03/23 02:23 [From Augmentin] Past Med/Surg History Medical History (Updated 04/03/23 @ 04:13 by Mali Pride PA-C) BPH with obstruction/lower urinary tract symptoms Degenerative disc disease Arthritis History of pyloric stenosis as a child Diabetes mellitus, type 2 NO MEDS History of skin cancer Transient ischemic attack (TIA) AROUND 2019? *NO PROBLEMS FROM EVENT HTN (hypertension) Systolic CHF FOLLOWS DR. LR>PT UNSURE OF CARDIAC HX Ischemic cardiomyopathy CAD (coronary artery disease) 1994-anterior wall [place], no intervention Dyslipidemia DM type 2 (diabetes mellitus, type 2) Surgical History History of colonoscopy History of repair of pyloric stenosis History of tooth extraction History of cardiac cath 1995 History of cataract surgery RT/LEFT History of appendectomy Family History Sister Multiple myeloma Brother Heart disease Other No family history of adverse response to anesthesia Social History Smoking Status: Never smoker Second Hand Exposure: Yes ( A CHILD); Do You Dip or Chew Tobacco: No; Hx Alcohol Use: Yes Alcohol type: wine Hx Substance Use: No Preferred Language: Nepali Communication Ability: Effective Machine Builder Required: No Beliefs That Will Affect Care: None marital status: Current Living Situation: Spouse Feels Safe at Home: Yes Assistive Devices: Denture - Upper and Glasses Physical Exam Vital Signs Vital Signs - 24 hr 04/02/23 23:44 04/03/23 01:36 04/03/23 02:00 Temperature 36.6 C Temperature Source Temporal Artery Scan Pulse Rate 84 96 H Pulse Rate [Apical] 113 H Pulse Rate from SpO2 Sensor Respiratory Rate 16 22 Respiratory Effort / Characteristics Non-Labored Spontaneous Respiratory Depth Normal Blood Pressure 113/65 Blood Pressure [Left Arm] 117/76 Blood Pressure Mean 81 Blood Pressure Mean [Left Arm] 89 Blood Pressure Position Sitting Pulse Oximetry 96 94 Oxygen Delivery Method Room Air Room Air Sepsis Recent Fever Within 48 Hours No Sepsis New/Unexplained Change in Mental Status N/A Sepsis Action Taken by Nursing No Action Required 04/03/23 02:01 04/03/23 02:44 04/03/23 04:01 Temperature Temperature Source Pulse Rate 79 84 85 Pulse Rate [Apical] Pulse Rate from SpO2 Sensor 88 Respiratory Rate 30 H 28 H 22 Respiratory Effort / Characteristics Respiratory Depth Blood Pressure 106/36 L 119/80 Blood Pressure [Left Arm] Blood Pressure Mean 59 93 Blood Pressure Mean [Left Arm] Blood Pressure Position Pulse Oximetry 95 95 Oxygen Delivery Method Room Air Sepsis Recent Fever Within 48 Hours Sepsis New/Unexplained Change in Mental Status Sepsis Action Taken by Nursing Left knee with large effusion present Procedures Joint Aspiration/Injection Joint Asp./Inject. 1: Time Out Performed: Yes Side of body: left Joint Aspirated: knee Ultrasound Guidance: No Skin Prep: Povidone-Iodine1% Local Anesthetic: lidocaine 1% Amount of anesthesia used (mL): 2 Needle Size Used: 18G Fluid Obtained: turbid Total fluid obtained (mL): 80 Patient Tolerated Procedure: well and no complications Complications: none Additional Comments: Patient's knee was then dressed with bacitracin bandage and Delbert wrap. Patient tolerated procedure well. Neurovascular status was rechecked after placement is intact. Course Administered Medications Lidocaine HCl (Lidocaine 1% Local 20 Ml Vial) 0 ml INJ NOW ONE Stop: 04/03/23 04:10 Last Admin: 04/03/23 04:10 Dose: Not Given Documented By: CARMINE Discontinued Medications Sodium Chloride (Nss) 500 mls @ 999 mls/hr IV .Q31M ONE Stop: 04/03/23 01:49 Last Infusion: 04/03/23 02:11 Dose: Infused Documented By: Admin: 04/03/23 01:33 Dose: 999 mls/hr Documented By: CARMINE Ketorolac Tromethamine (Ketorolac 30 Mg/Ml Vial) 30 mg IV NOW ONE Stop: 04/03/23 01:12 Last Admin: 04/03/23 01:35 Dose: 30 mg Documented By: CARMINE Medical Decision Making Laboratory Data 04/03/23 01:26 04/03/23 01:26 Lab Results 04/03/23 04/03/23 Range/Units 01:26 02:22 WBC 16.95 H (4.8-10.8) K/ul RBC 4.57 L (4.70-6.10) M/uL Hgb 12.8 L (14.0-18.0) g/dl Hct 38.6 L (42.0-52.0) % MCV 84.5 (80.0-100.0) fL MCH 28.0 (25.0-34.0) pg MCHC 33.2 (32.0-36.0) g/dL RDW Std Deviation 44.5 (36.4-46.3) fL RDW Coeff of Earl 14.6 H (11.5-14.5) % Plt Count 236 (130-400) K/uL MPV 10.4 (9.4-12.4) fL Immature Gran % (Auto) 0.5 % Neut % (Auto) 87.7 % Lymph % (Auto) 2.9 % [place] % (Auto) 8.6 % Eos % (Auto) 0.1 % Baso % (Auto) 0.2 % Neut # (Auto) 14.88 H (1.40-6.50) K/uL Lymph # (Auto) 0.50 L (1.20-3.40) K/uL [place] # (Auto) 1.45 H (0.11-0.59) K/uL Eos # (Auto) 0.01 (0.00-0.50) K/uL Baso # (Auto) 0.03 (0.00-0.20) K/uL Immature Gran # (Auto) 0.08 (0.01-0.20) K/uL ESR 42 H (0-20) mm/hr Sodium 132 L (136-145) mmol/L Potassium 4.3 (3.5-5.1) mmol/L Chloride 98 (98-107) mmol/L Carbon Dioxide 25 (21-32) mmol/L Anion Gap 9 (3-11) BUN 27 H (6-23) mg/dl Creatinine 1.17 (0.6-1.4) mg/dl Est Cr Clr Drug Dosing 53.2 ml/min Est GFR ( Amer) 66.9 ml/min Est GFR (Non-Af Amer) 57.7 ml/min BUN/Creatinine Ratio 23.1 H (10-20) Glucose 217 H (70-99(Fasting)) mg/dl Calcium 9.4 (8.6-10.3) mg/dl Total Bilirubin 2.2 H (0.2-1.0) mg/dl AST 14 (13-39) U/L ALT 17 (7-52) U/L Alkaline Phosphatase 73 (34-104) U/L Troponin I High Sens 16.8 (0-20) pg/ml C-Reactive Protein 20.00 H (0-0.5) mg/dl Total Protein 7.1 (6.0-8.3) gm/dl Albumin 3.8 (3.4-5.0) gm/dl Globulin 3.3 (2.5-4.0) gm/dl Albumin/Globulin Ratio 1.2 (0.9-2) TSH 1.235 (0.300-4.500) uIu/ml Urine Color [place] Urine Appearance Cloudy A (Clear) Urine pH 5.0 (4.5-7.5) Ur Specific [place] 1.025 (1.000-1.030) Urine Protein Trace H (Negative) Urine Glucose (UA) Negative (Negative) Urine Ketones Trace H (Negative) Urine Blood Negative (Negative) Urine Nitrite Negative (Negative) Urine Bilirubin Negative (Negative) Urine Urobilinogen Negative (Negative) Ur Leukocyte Esterase Negative (Negative) Urine WBC (Auto) 1-5 (0-5) /hpf Urine RBC (Auto) 0-4 (0-4) /hpf U Hyaline Cast (Auto) 0 (0-5) /lpf U Epithel Cells (Auto) 20-30 H (0-5) /lpf Urine Bacteria (Auto) 1+ H (Negative) Urine Mucus Present A (None Prsent) MDM Narrative Please see the attendings note for further information Impression & Plan Effusion of left knee joint Discharge Plan Visit Data Chief Complaint: Knee Injury/Pain Stated Complaint: WEAKNESS, HARD TO WALK, LT KNEE EDEMA, STIFF NECK ED Provider: Zee Gonzalez Discharge Problem: Effusion of left knee joint Forms Stand Alone Forms: My [facility] Prescriptions Prescriptions: No Action atorvastatin 80 mg tablet 80 mg PO QAM finasteride 5 mg tablet 5 mg PO QAM tamsulosin 0.4 mg capsule 0.4 mg PO HS aspirin 81 mg Tablet,Delayed Release (Dr/Ec) 81 mg PO QAM metoprolol succinate 50 mg tablet extended release 24 hr 50 mg PO QAM spironolactone 25 mg tablet 12.5 mg PO QAM Rx Instructions: Take 12.5 mg daily. lisinopril 2.5 mg tablet 2.5 mg PO QAM Rx Instructions: Take 2.5 mg daily. Eliquis 5 mg Tablet 5 mg PO BID Qty: 60 0RF furosemide 20 mg Tablet 20 mg PO QAM Qty: 30 0RF Referrals Referrals: Adam Siddiqi MD [Primary Care Provider] -
[2023-04-03 04:41] LABS: Magnesium 1.6 mg/dl (1.7-2.4)
[2023-04-03 04:45] LABS: Partial Thromboplastin Ratio 1.3; Partial Thromboplastin Time 36 Seconds (21-31)
[2023-04-03 05:04] LABS: Procalcitonin 0.29 ng/ml (0-0.5)
[2023-04-03 05:10] LABS: Lyme Ab IgG w/WB Rflx Negative (Negative); Lyme Ab IgM w/WB Rflx Negative (Negative)
--- NOTE | 2023-04-03 05:26 | History & Physical Report ---
Date of Service April 03, 2023 Assessment & Plan (1) Septic arthritis: Plan: Sepsis secondary to septic arthritis left knee Atrial fibrillation, rate slightly elevated secondary to illness on Eliquis chronic systolic heart failure secondary to ischemic cardiomyopathy (EF 25%, TTE 2020), equivocal volume status given congestion on x-ray Acute on chronic anemia, possible hemarthrosis given anticoagulant use hx CAD/CVA hypertension, BP on the lower side hyperlipidemia, on statin Rx history of CVA DM2 diet-controlled, suboptimal control as of recent hemoglobin A1c of 7.7 last December 2022 BPH, stable on regimen past tobacco abuse. Medical telemetry CS, Daptomycin (preferred over vancomycin due to decrease volume in light of cardiomyopathy, congestion on x-ray until MRSA ruled out) Follow synovial fluid results Orthopedics consult Re: Septic arthritis left knee N.p.o. until patient seen by orthopedics in anticipation of procedure Hold aspirin and Eliquis for now given concern for hemarthrosis with hemoglobin drop from baseline. (Of note, last Eliquis dose was yesterday morning 04/02, patient missed nighttime dose) Basal insulin adjusted for n.p.o. status, ISS BG goal 1 10-1 40, update hemoglobin A1c DVT prophylaxis. SCDs while Eliquis on hold, concern for hemarthrosis DNR Patient requesting updates from providers. Ms. Chantale Mckeon, contact #[phone]. Text document was generated using [employer] voice recognition software. It may contain grammatical or spelling errors. Kindly contact undersigned for clarification of any documentation item in question. History of Present Illness Chief Complaint: Left knee pain/swelling Primary Care Provider: Adam Siddiqi MD History obtained from patient and records. Medical history significant for chronic systolic heart failure secondary to ischemic cardiomyopathy (EF 25%, TTE 2020), CAD, hypertension, hyperlipidemia, history of CVA, DM2 diet-controlled, chronic anemia (baseline hemoglobin of 13), BPH, skin cancer as per records, past tobacco abuse. Last confinement February 2021 for new onset A-fib, patient discharged on Eliquis. 2 days ago, patient noted achy left hip pain which later moved to left knee. No recollection of recent trauma. Painful left knee swelling noted, worse on ambulation. No fever, no chills, no chest pain, no unusual SOB. No previous episodes. Purulent fluid obtained on left knee arthrocentesis at the ER. IV vancomycin subsequently administered. 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 Allergies Allergy/AdvReac Type Severity Reaction Status Date / Time Penicillins Allergy Severe TONGUE Verified 04/03/23 02:23 SWELLING amoxicillin [From Augmentin] AdvReac Unknown Vomiting Verified 04/03/23 02:23 clavulanic acid AdvReac Unknown Vomiting Verified 04/03/23 02:23 [From Augmentin] Home Medications Medication Instructions Recorded Confirmed Type atorvastatin 80 mg tablet 80 mg PO QAM 11/26/18 04/03/23 History aspirin 81 mg tablet,delayed 81 mg PO QAM 01/03/19 04/03/23 History release metoprolol succinate 50 mg 50 mg PO QAM 07/26/20 04/03/23 History tablet,extended release 24 hr apixaban 5 mg tablet (Eliquis) 5 mg PO BID #60 tabs 02/07/21 04/03/23 Rx furosemide 20 mg tablet 20 mg PO QAM #30 tabs 02/07/21 04/03/23 Rx lisinopril 2.5 mg tablet 2.5 mg PO QAM 05/30/21 04/03/23 History spironolactone 25 mg tablet 12.5 mg PO QAM 05/30/21 04/03/23 History finasteride 5 mg tablet 5 mg PO QAM 08/02/22 04/03/23 History tamsulosin 0.4 mg capsule 0.4 mg PO HS 08/02/22 04/03/23 History Past Med/Surg History Medical History BPH with obstruction/lower urinary tract symptoms Degenerative disc disease Arthritis History of pyloric stenosis as a child Diabetes mellitus, type 2 NO MEDS History of skin cancer Transient ischemic attack (TIA) AROUND 2019? *NO PROBLEMS FROM EVENT HTN (hypertension) Systolic CHF FOLLOWS DR. LR>PT UNSURE OF CARDIAC HX Ischemic cardiomyopathy CAD (coronary artery disease) 1994-anterior wall [place], no intervention Dyslipidemia DM type 2 (diabetes mellitus, type 2) Surgical History History of colonoscopy History of repair of pyloric stenosis History of tooth extraction History of cardiac cath 1994 History of cataract surgery RT/LEFT History of appendectomy Family History Sister Multiple myeloma Brother Heart disease Other No family history of adverse response to anesthesia Social History Smoking Status: Former smoker Smoking End Date: 1984; Second Hand Exposure: Yes ( A CHILD); Do You Dip or Chew Tobacco: No; Hx Alcohol Use: No Hx Substance Use: No Preferred Language: Telugu Communication Ability: Effective Mail Deliverer Required: No Beliefs That Will Affect Care: None marital status: Current Living Situation: Spouse Other Information That Helps Us Care for You: No Feels Safe at Home: Yes Safety Concerns: Feels Safe At This Time Assistive Devices: Glasses Assistive Devices Comment: reading glasses Review of Systems Review of Systems: As per HPI, all other systems reviewed and negative Physical Exam Physical Exam: GENERAL: Slightly uncomfortable, pleasant, no respiratory distress SKIN: Pallor, warm HEENT: Alopecia, pale palpebral conjunctivae, no ptosis, dry buccal mucosa NECK : Supple, no tenderness CHEST : Decreased breath sounds, no tenderness HEART : Irregular, no obvious murmurs ABDOMEN: Some distention, nontender EXTREMITIES : Bandage over left knee, no other conspicuous deformities noted NEUROLOGIC : Coherent, no facial asymmetry, no other gross focality Results & Data Results & Data Vital Signs (Past 12 Hours) Vital Signs Temp Pulse Pulse Resp BP BP Pulse Ox 04/03/23 04:30 86 28 H 95 04/03/23 04:01 85 22 119/80 95 04/03/23 02:44 84 28 H 106/36 L 04/03/23 02:01 79 30 H 95 04/03/23 02:00 96 H 04/03/23 01:36 113 H 22 117/76 94 04/02/23 23:44 36.6 C 84 16 113/65 96 O2 Del Method 04/03/23 04:30 Room Air 04/03/23 04:01 Room Air 04/03/23 02:44 04/03/23 02:01 04/03/23 02:00 04/03/23 01:36 Room Air 04/02/23 23:44 Room Air Laboratory Results Laboratory Results WBC 16.95 K/ul (4.8-10.8) H 04/03/23 01: RBC 4.57 M/uL (4.70-6.10) L 04/03/23 01: Hgb 12.8 g/dl (14.0-18.0) L 04/03/23: Hct 38.6 % (42.0-52.0) L 04/03/23: MCV 84.5 fL (80.0-100.0) 04/03/23: MCH 28.0 pg (25.0-34.0) 04/03/23 01: MCHC 33.2 g/dL (32.0-36.0) 04/03/23: RDW Std Deviation 44.5 fL (36.4-46.3) 04/03/23: RDW Coeff of [place] 14.6 % (11.5-14.5) H 04/03/23: Plt Count 236 K/uL (130-400) 04/03/23: MPV 10.4 fL (9.4-12.4) 04/03/23 01: Immature Gran % (Auto) 0.5 % 04/03/23 01: Neut % (Auto) 87.7 % 04/03/23: Lymph % (Auto) 2.9 % 04/03/23: [place] % (Auto) 8.6 % 04/03/23 01: Eos % (Auto) 0.1 % 04/03/23 01: Baso % (Auto) 0.2 % 04/03/23 01: Neut # (Auto) 14.88 K/uL (1.40-6.50) H 04/03/23 01: Lymph # (Auto) 0.50 K/uL (1.20-3.40) L 04/03/23 01: [place] # (Auto) 1.45 K/uL (0.11-0.59) H 04/03/23 01: Eos # (Auto) 0.01 K/uL (0.00-0.50) 04/03/23 01: Baso # (Auto) 0.03 K/uL (0.00-0.20) 04/03/23 01:26 Immature Gran # (Auto) 0.08 K/uL (0.01-0.20) 04/03/23 01:26 ESR 42 mm/hr (0-20) H 04/03/23 01:26 APTT 36 Seconds (21-31) H 04/03/23 01:25 PTT Ratio 1.3 04/03/23 01:25 Sodium 132 mmol/L (136-145) L 04/03/23 01:26 Potassium 4.3 mmol/L (3.5-5.1) 04/03/23 01:26 Chloride 98 mmol/L (98-107) 04/03/23 01:26 Carbon Dioxide 25 mmol/L (21-32) 04/03/23 01:26 Anion Gap 9 (3-11) 04/03/23 01:26 BUN 27 mg/dl (6-23) H 04/03/23 01:26 Creatinine 1.17 mg/dl (0.6-1.4) 04/03/23 01:26 Est Cr Clr Drug Dosing 53.2 ml/min 04/03/23 01:26 Est GFR ( Amer) 66.9 ml/min 04/03/23 01:26 Est GFR (Non-Af Amer) 57.7 ml/min 04/03/23 01:26 BUN/Creatinine Ratio 23.1 (10-20) H 04/03/23 01:26 Glucose 217 mg/dl (70-99(Fasting)) H 04/03/23 01:26 Osmolality 296 mOsm/kg (280-300) 04/03/23 01:25 Lactate 1.8 mmol/L (0.4-2.0) 04/03/23 04:03 Calcium 9.4 mg/dl (8.6-10.3) 04/03/23 01:26 Magnesium 1.6 mg/dl (1.7-2.4) L 04/03/23 01:26 Total Bilirubin 2.2 mg/dl (0.2-1.0) H 04/03/23 01:26 AST 14 U/L (13-39) 04/03/23 01:26 ALT 17 U/L (7-52) 04/03/23 01:26 Alkaline Phosphatase 73 U/L (34-104) 04/03/23 01: Troponin I High Sens 16.8 pg/ml (0-20) 04/03/23 01: C-Reactive Protein 20.00 mg/dl (0-0.5) H 04/03/23 01: Total Protein 7.1 gm/dl (6.0-8.3) 04/03/23: Albumin 3.8 gm/dl (3.4-5.0) 04/03/23: Globulin 3.3 gm/dl (2.5-4.0) 04/03/23: Albumin/Globulin Ratio 1.2 (0.9-2) 04/03/23: Procalcitonin 0.29 ng/ml (0-0.5) 04/03/23 01: TSH 1.235 uIu/ml (0.300-4.500) 04/03/23 01:26 Urine Color [place] 04/03/23 02:22 Urine Appearance Cloudy (Clear) A 04/03/23 02:22 Urine pH 5.0 (4.5-7.5) 04/03/23 02:22 Ur Specific [place] 1.025 (1.000-1.030) 04/03/23 02:22 Urine Protein Trace (Negative) H 04/03/23 02:22 Urine Glucose (UA) Negative (Negative) 04/03/23 02:22 Urine Ketones Trace (Negative) H 04/03/23 02:22 Urine Blood Negative (Negative) 04/03/23 02:22 Urine Nitrite Negative (Negative) 04/03/23 02:22 Urine Bilirubin Negative (Negative) 04/03/23 02:22 Urine Urobilinogen Negative (Negative) 04/03/23 02:22 Ur Leukocyte Esterase Negative (Negative) 04/03/23 02:22 Urine WBC (Auto) 1-5 /hpf (0-5) 04/03/23 02:22 Urine RBC (Auto) 0-4 /hpf (0-4) 04/03/23 02:22 U Hyaline Cast (Auto) 0 /lpf (0-5) 04/03/23 02:22 U Epithel Cells (Auto) 20-30 /lpf (0-5) H 04/03/23 02:22 Urine Bacteria (Auto) 1+ (Negative) H 04/03/23 02:22 Urine Mucus Present (None Prsent) A 04/03/23 02:22 Fluid Comment 04/03/23 04:00 Lyme Disease IgG Ab Negative (Negative) 04/03/23 01:25 Lyme Disease IgM Ab Negative (Negative) 04/03/23 01:25 Diagnostic Findings Chest x-ray as per my interpretation cardiomegaly, minimal congestion EKG as per my interpretation : Rate 105, A-fib, LAD, LAFB, LBBB
[2023-04-03] MEDS ORDERED: oxyCODONE HCL IR 5 MG TAB (IMMEDIATE RELEASE) PO PRN (06:11)
[2023-04-03] MEDS ORDERED: GLUCOSE 40% GEL 15 GM TUBE PO PRN (06:11)
[2023-04-03] MEDS ORDERED: GLUCOSE 10 TAB/TUBE PO PRN (06:11)
[2023-04-03] MEDS ORDERED: PROMETHAZINE HCL 6.25 MG in SODIUM CHLORIDE 0.9% 50 ML IV PRN (06:11)
[2023-04-03] MEDS ORDERED: CARBOHYDRATES FOR HYPOGLYCEMIA PO PRN (06:11)
[2023-04-03] MEDS ORDERED: DEXTROSE 50% 50 ML SYRINGE IV PRN (06:11)
[2023-04-03] MEDS ORDERED: GLUCAGON FOR INJ 1 MG VIAL SQ PRN (06:11)
[2023-04-03] MEDS ORDERED: ALBUMIN 25% 25 GM/100 ML VIAL IV ONE (06:11)
[2023-04-03] MEDS ORDERED: Nursing to Pharmacy Communication SCH (06:30)
[2023-04-03] MEDS: INSULIN ASPART PER UNIT CHARGE SC SCH ×4 (06:34→22:36)
--- NOTE | 2023-04-03 06:43 | Ultrasound Report ---
LEFT LOWER EXTREMITY VENOUS DOPPLER HISTORY: Left knee swelling. eval or dvt COMPARISON STUDY: None. FINDINGS: There is normal compressibility, flow, and augmentation within the left lower extremity tim p venous system. IMPRESSION: No DVT within the left lower extremity. ACT 112: Negative or not required by law. Electronically signed by: Edward Phoenix M.D. 04/03/2023 6:40 AM
[2023-04-03 07:16] LABS: Appearance Synovial Fluid Turbid; Color Synovial Fluid Yellow; Mononuclear WBC Synovial 6.4 %; Polynuclear WBC Synovial 93.6 %; RBC Synovial Fluid Auto 9000 /uL; Source Synovial Fluid Left Knee; WBC Synovial Fluid Auto 88900 /ul (0-200)
[2023-04-03] MEDS: lisinopril 2.5 MG TAB PO SCH (08:35)
[2023-04-03] MEDS: METOPROLOL SUCC 50MG EXT REL TAB PO SCH (08:35)
[2023-04-03] MEDS: FINASTERIDE 5 MG TAB PO SCH (08:35)
[2023-04-03] MEDS: LANTUS PER UNIT CHARGE SQ SCH (08:41)
--- NOTE | 2023-04-03 08:44 | XRay Report ---
LEFT KNEE 3 VIEWS CLINICAL HISTORY: Atraumatic left knee pain. FINDINGS: AP, crosstable lateral, and sunrise views of the left knee are obtained. No prior studies a re available for comparison at the time of dictation. The skeletal structures are osteopenic. No frac ture is seen. There is moderate tricompartmental degenerative joint space narrowing, greatest at the patellofemoral articulation. There are marginal osteophytes and patellar enthesophytes. There is skylar drocalcinosis of the medial and lateral compartments. There is a large joint effusion which contains calcific debris. Soft tissue edema is seen around the knee. There is atherosclerotic calcification of the popliteal artery. IMPRESSION: 1. Soft tissue swelling with no acute fracture identified. 2. Osteopenia with degenerative change and chondrocalcinosis as above. 3. Large joint effusion which contains calcific debris. Electronically signed by: Raudel Jackson M.D. 04/03/2023 8:43 AM
--- NOTE | 2023-04-03 08:52 | XRay Report ---
SINGLE VIEW CHEST CLINICAL HISTORY: Generalized weakness. FINDINGS: An AP, portable, upright chest radiograph is compared to chest x-ray and chest CT dated 02/06/2021. The examination is degraded by portable technique and patient rotation. The heart is enlarge d and noting atherosclerotic calcification of the thoracic aorta. The pulmonary vasculature is noncon gested. Chronic interstitial thickening is similar to previous. There is bibasilar scarring/atelectas is. The lungs and pleural spaces are otherwise clear. No pneumothorax is seen. The skeletal structure s are osteopenic. The bony thorax is grossly intact. IMPRESSION: Cardiomegaly with no acute cardiopulmonary abnormality identified. ACT 112: Negative or not required by law. Electronically signed by: Raudel Jackson M.D. 04/03/2023 8:50 AM
--- NOTE | 2023-04-03 09:33 | Orthopedic Consultation ---
Date of Consultation April 03, 2023 Assessment & Plan (1) Septic arthritis: Plan is to perform an incision and drainage arthroscopically later this afternoon due to the septic arthritis Will continue daptomycin intravenously I did contact Dr. Lama [facility]y [facility]. She states that she will admini ster Kcentra prior to the surgery. We are to contact her when we have a definitive time with the patient will be going to the operating room I also contacted the lab to see if there were preliminary results with the patient's Gram stain and crystal analysis. At this point there is no preliminary data on the patient's Gram stain and crystal analysis. Consent was obtained to perform with surgical intervention later this afternoon. Delbert bandage was reapplied for compressive purposes to the patient's left knee. History of Present Illness Reason for Consultation: Left knee septic arthritis Requesting Physician: Dr. Terrence Plata Attending Physician: Gisela Merchant MD History of Present Illness This 82 year old Male is seen in the emergency department for consultation due to onset of left knee pain and swelling. Patient explains that 2 weeks ago he developed some unusual left hip pain but made it somewhat difficult for him to walk. This lasted for approximately 1 week but then subsided. He then developed some significant left knee pain and swelling over the past 3 days that has become unbearable. He denies any specific injury to that knee. Patient states he has never had this issue in the past. He states that he had about 60 mL of fluid aspirated from the knee earlier this morning. Patient is on chronic anticoagulation with Eliquis due to atrial fibrillation. Currently he denies chest pain, shortness of breath, fever, chills, sweats, numbness or tingling in his left lower extremity. He also denies nausea, vomiting, diarrhea or difficulty voiding. Allergies Allergy/AdvReac Type Severity Reaction Status Date / Time Penicillins Allergy Severe TONGUE Verified 04/03/23 02:23 SWELLING amoxicillin [From Augmentin] AdvReac Unknown Vomiting Verified 04/03/23 02:23 clavulanic acid AdvReac Unknown Vomiting Verified 04/03/23 02:23 [From Augmentin] Home Medications Medication Instructions Recorded Confirmed Type atorvastatin 80 mg tablet 80 mg PO QAM 11/26/18 04/03/23 History aspirin 81 mg tablet,delayed 81 mg PO QAM 01/03/19 04/03/23 History release metoprolol succinate 50 mg 50 mg PO QAM 07/26/20 04/03/23 History tablet,extended release 24 hr apixaban 5 mg tablet (Eliquis) 5 mg PO BID #60 tabs 02/07/21 04/03/23 Rx furosemide 20 mg tablet 20 mg PO QAM #30 tabs 02/07/21 04/03/23 Rx lisinopril 2.5 mg tablet 2.5 mg PO QAM 05/30/21 04/03/23 History spironolactone 25 mg tablet 12.5 mg PO QAM 05/30/21 04/03/23 History finasteride 5 mg tablet 5 mg PO QAM 08/02/22 04/03/23 History tamsulosin 0.4 mg capsule 0.4 mg PO HS 08/02/22 04/03/23 History Patient History Medical History BPH with obstruction/lower urinary tract symptoms Degenerative disc disease Arthritis History of pyloric stenosis as a child Diabetes mellitus, type 2 NO MEDS History of skin cancer Transient ischemic attack (TIA) AROUND 2019? *NO PROBLEMS FROM EVENT HTN (hypertension) Systolic CHF FOLLOWS DR. LR>PT UNSURE OF CARDIAC HX Ischemic cardiomyopathy CAD (coronary artery disease) 1994-anterior wall [place], no intervention Dyslipidemia DM type 2 (diabetes mellitus, type 2) Surgical History History of colonoscopy History of repair of pyloric stenosis History of tooth extraction History of cardiac cath 1994 History of cataract surgery RT/LEFT History of appendectomy Family History Sister Multiple myeloma Brother Heart disease Other No family history of adverse response to anesthesia Social History Smoking Status: Former smoker Smoking End Date: 1984; Second Hand Exposure: Yes ( A CHILD); Do You Dip or Chew Tobacco: No; Hx Alcohol Use: No Hx Substance Use: No Preferred Language: Amharic Communication Ability: Effective Capital Equipment Specialist Required: No Beliefs That Will Affect Care: None marital status: Current Living Situation: Spouse Other Information That Helps Us Care for You: No Feels Safe at Home: Yes Safety Concerns: Feels Safe At This Time Assistive Devices: Glasses Assistive Devices Comment: reading glasses Review of Systems Review of Systems: All systems reviewed & are unremarkable except as noted in Subjective Physical Exam Physical Exam: Left knee: Delbert bandage was removed. Aspiration site is covered with a Telfa pad. There is notable effusion and edema. There is no erythema, ecchymosis or warmth. Patient is about 6 degrees short of terminal extension and is able to actively flex to about 75 degrees. He is able to perform active straight leg raise test and actively dorsi and plantarflex foot without issue. His peripheral pulses are 2+. Capillary fill is less than 2 seconds. He is neurovascularly intact in the left lower extremity. Results & Data Vital Signs (Past 12 Hours) Vital Signs Temp Pulse Pulse Resp BP BP Pulse Ox 04/03/23 08:00 84 19 04/03/23 08:00 102/74 04/03/23 07:36 86 04/03/23 07:00 92/65 L 04/03/23 06:04 72 04/03/23 06:00 78 20 88/57 L 04/03/23 05:00 80 22 113/56 L 04/03/23 04:30 86 28 H 95 04/03/23 04:01 85 22 119/80 95 04/03/23 02:44 84 28 H 106/36 L 04/03/23 02:01 79 30 H 95 04/03/23 02:00 96 H 04/03/23 01:36 113 H 22 117/76 94 04/02/23 23:44 36.6 C 84 16 113/65 96 O2 Del Method 04/03/23 08:00 04/03/23 08:00 04/03/23 07:36 04/03/23 07:00 04/03/23 06:04 04/03/23 06:00 04/03/23 05:00 04/03/23 04:30 Room Air 04/03/23 04:01 Room Air 04/03/23 02:44 04/03/23 02:01 04/03/23 02:00 04/03/23 01:36 Room Air 04/02/23 23:44 Room Air Diagnostic Findings Laboratory Results WBC 16.95 K/ul (4.8-10.8) H 04/03/23 01:26 RBC 4.57 M/uL (4.70-6.10) L 04/03/23 01: Hgb 12.8 g/dl (14.0-18.0) L 04/03/23: Hct 38.6 % (42.0-52.0) L 04/03/23: MCV 84.5 fL (80.0-100.0) 04/03/23: MCH 28.0 pg (25.0-34.0) 04/03/23 01: MCHC 33.2 g/dL (32.0-36.0) 04/03/23: RDW Std Deviation 44.5 fL (36.4-46.3) 04/03/23 01: RDW Coeff of Earl 14.6 % (11.5-14.5) H 04/03/23: Plt Count 236 K/uL (130-400) 04/03/23: MPV 10.4 fL (9.4-12.4) 04/03/23 01: Immature Gran % (Auto) 0.5 % 04/03/23 01: Neut % (Auto) 87.7 % 04/03/23 01: Lymph % (Auto) 2.9 % 04/03/23 01: [place] % (Auto) 8.6 % 04/03/23 01: Eos % (Auto) 0.1 % 04/03/23: Baso % (Auto) 0.2 % 04/03/23 01: Neut # (Auto) 14.88 K/uL (1.40-6.50) H 04/03/23 01: Lymph # (Auto) 0.50 K/uL (1.20-3.40) L 04/03/23 01: [place] # (Auto) 1.45 K/uL (0.11-0.59) H 04/03/23 01: Eos # (Auto) 0.01 K/uL (0.00-0.50) 04/03/23 01: Baso # (Auto) 0.03 K/uL (0.00-0.20) 04/03/23 01: Immature Gran # (Auto) 0.08 K/uL (0.01-0.20) 04/03/23 01:26 ESR 42 mm/hr (0-20) H 04/03/23 01:26 APTT 36 Seconds (21-31) H 04/03/23 01:25 PTT Ratio 1.3 04/03/23 01:25 Sodium 132 mmol/L (136-145) L 04/03/23 01:26 Potassium 4.3 mmol/L (3.5-5.1) 04/03/23 01:26 Chloride 98 mmol/L (98-107) 04/03/23 01:26 Carbon Dioxide 25 mmol/L (21-32) 04/03/23 01:26 Anion Gap 9 (3-11) 04/03/23 01:26 BUN 27 mg/dl (6-23) H 04/03/23 01:26 Creatinine 1.17 mg/dl (0.6-1.4) 04/03/23 01:26 Est Cr Clr Drug Dosing 53.2 ml/min 04/03/23 01:26 Est GFR ( Amer) 66.9 ml/min 04/03/23 01:26 Est GFR (Non-Af Amer) 57.7 ml/min 04/03/23 01:26 BUN/Creatinine Ratio 23.1 (10-20) H 04/03/23 01:26 Glucose 217 mg/dl (70-99(Fasting)) H 04/03/23 01:26 POC Glucose 226 mg/dl (70-99) H 04/03/23 06:20 Osmolality 296 mOsm/kg (280-300) 04/03/23 01:25 Lactate 1.8 mmol/L (0.4-2.0) 04/03/23 04:03 Calcium 9.4 mg/dl (8.6-10.3) 04/03/23 01:26 Magnesium 1.6 mg/dl (1.7-2.4) L 04/03/23 01:26 Total Bilirubin 2.2 mg/dl (0.2-1.0) H 04/03/23 01:26 AST 14 U/L (13-39) 04/03/23 01:26 ALT 17 U/L (7-52) 04/03/23 01:26 Alkaline Phosphatase 73 U/L (34-104) 04/03/23 01:26 Troponin I High Sens 16.8 pg/ml (0-20) 04/03/23 01: C-Reactive Protein 20.00 mg/dl (0-0.5) H 04/03/23 01: B-Natriuretic Peptide 482 pg/ml (0-100) H 04/03/23 04:18 Total Protein 7.1 gm/dl (6.0-8.3) 04/03/23 01: Albumin 3.8 gm/dl (3.4-5.0) 04/03/23 01: Globulin 3.3 gm/dl (2.5-4.0) 04/03/23 01: Albumin/Globulin Ratio 1.2 (0.9-2) 04/03/23 01: Procalcitonin 0.29 ng/ml (0-0.5) 04/03/23 01: TSH 1.235 uIu/ml (0.300-4.500) 04/03/23 01:26 Urine Color [place] 04/03/23 02:22 Urine Appearance Cloudy (Clear) A 04/03/23 02:22 Urine pH 5.0 (4.5-7.5) 04/03/23 02:22 Ur Specific [place] 1.025 (1.000-1.030) 04/03/23 02:22 Urine Protein Trace (Negative) H 04/03/23 02:22 Urine Glucose (UA) Negative (Negative) 04/03/23 02:22 Urine Ketones Trace (Negative) H 04/03/23 02:22 Urine Blood Negative (Negative) 04/03/23 02:22 Urine Nitrite Negative (Negative) 04/03/23 02:22 Urine Bilirubin Negative (Negative) 04/03/23 02:22 Urine Urobilinogen Negative (Negative) 04/03/23 02:22 Ur Leukocyte Esterase Negative (Negative) 04/03/23 02:22 Urine WBC (Auto) 1-5 /hpf (0-5) 04/03/23 02:22 Urine RBC (Auto) 0-4 /hpf (0-4) 04/03/23 02:22 U Hyaline Cast (Auto) 0 /lpf (0-5) 04/03/23 02:22 U Epithel Cells (Auto) 20-30 /lpf (0-5) H 04/03/23 02:22 Urine Bacteria (Auto) 1+ (Negative) H 04/03/23 02:22 Urine Mucus Present (None Prsent) A 04/03/23 02:22 Urine Osmolality 763 mOsm/kg (500-800) 04/03/23 02:22 Ur Random Sodium 24 mmol/L 04/03/23 02:22 Fluid Comment 04/03/23 04:00 Synovial Source Left Knee 04/03/23 04:00 Synovial Color Yellow 04/03/23 04:00 Synovial Appearance Turbid 04/03/23 04:00 Synovial WBC (Auto) 17393 /ul (0-200) H 04/03/23 04:00 Synovial RBC (Auto) 9000 /uL 04/03/23 04:00 Synovial Polynuclear % 93.6 % 04/03/23 04:00 Synovial Mononuclear % 6.4 % 04/03/23 04:00 Lyme Disease IgG Ab Negative (Negative) 04/03/23 01:25 Lyme Disease IgM Ab Negative (Negative) 04/03/23 01:25 Impressions Knee X-Ray 04/03/23 00:09 LEFT KNEE 3 VIEWS CLINICAL HISTORY: Atraumatic left knee pain. FINDINGS: AP, crosstable lateral, and sunrise views of the left knee are obtained. No prior studies are available for comparison at the time of dictation. The skeletal structures are osteopenic. No fracture is seen. There is moderate tricompartmental degenerative joint space narrowing, greatest at the patellofemoral articulation. There are marginal osteophytes and patellar enthesophytes. There is chondrocalcinosis of the medial and lateral compartments. There is a large joint effusion which contains calcific debris. Soft tissue edema is seen around the knee. There is atherosclerotic calcification of the popliteal artery. IMPRESSION: 1. Soft tissue swelling with no acute fracture identified. 2. Osteopenia with degenerative change and chondrocalcinosis as above. 3. Large joint effusion which contains calcific debris. Electronically signed by: Raudel Jackson M.D. 04/03/2023 8:43 AM Chest X-Ray 04/03/23 01:12 SINGLE VIEW CHEST CLINICAL HISTORY: Generalized weakness. FINDINGS: An AP, portable, upright chest radiograph is compared to chest x-ray and chest CT dated 02/06/2021. The examination is degraded by portable technique and patient rotation. The heart is enlarged and noting atherosclerotic calcification of the thoracic aorta. The pulmonary vasculature is noncongested. Chronic interstitial thickening is similar to previous. There is bibasilar scarring/atelectasis. The lungs and pleural spaces are otherwise clear. No pneumothorax is seen. The skeletal structures are osteopenic. The bony thorax is grossly intact. IMPRESSION: Cardiomegaly with no acute cardiopulmonary abnormality identified. ACT 112: Negative or not required by law. Electronically signed by: Raudel Jackson M.D. 04/03/2023 8:50 AM Venous Doppler Study 04/03/23 02:52 LEFT LOWER EXTREMITY VENOUS DOPPLER HISTORY: Left knee swelling. eval or dvt COMPARISON STUDY: None. FINDINGS: There is normal compressibility, flow, and augmentation within the left lower extremity deep venous system. IMPRESSION: No DVT within the left lower extremity. ACT 112: Negative or not required by law. Electronically signed by: Edward Phoenix M.D. 04/03/2023 6:40 AM
[2023-04-03 10:33] LABS: Hematocrit (blood only) 34.3 % (42.0-52.0); Hemoglobin 11.4 g/dl (14.0-18.0)
[2023-04-03 11:24] LABS: Estimated Average Glucose 189 mg/dl; Hemoglobin A1C 8.2 % (4.5-5.6)
--- NOTE | 2023-04-03 12:13 | Electrocardiogram Report ---
Test Reason : Blood Pressure : / mmHG Vent. Rate : 101 BPM Atrial Rate : 000 BPM P-R Int : 000 ms QRS Dur : 166 ms QT Int : 344 ms P-R-T Axes : 000 -47 119 degrees QTc Int : 446 ms Poor data quality, interpretation may be adversely affected Probable Atrial fibrillation with rapid ventricular response with premature ventricular or aberrantly conducted complexes Left axis deviation Left bundle branch block Abnormal ECG When compared with ECG of 07-FEB-2021 08:31, Questionable change in QRS axis T wave inversion now evident in Lateral leads Confirmed by Demetrio Levine ([id number]) on 04/03/2023 12:13:41 PM Referred By: REFERRED SELF Confirmed By:Demetrio Levine
--- NOTE | 2023-04-03 12:15 | Communication Note ---
Date of Service: April 03, 2023 Patient was seen and examined at bedside. 82-year-old male with PMH of chronic systolic heart failure secondary to ischemic cardiomyopathy [EF 25%, TTE 2020], CAD, HTN, HLD, CVA, T2DM diet- controlled, chronic anemia [baseline hemoglobin of 13], BPH, skin cancer, past tobacco abuse presents to the ED with 2-day history of achy left hip pain which later moved to left knee. No recollection of recent trauma. Left knee pain was worse with ambulation. Denied fever at presentation. He is being managed for the following: Septic arthritis: Purulent fluid obtained on left knee arthrocentesis at the ED. Admitting left knee x-ray with large joint effusion. LLE venous Doppler negative for DVT. Significant leukocytosis noted in sign of infection. Follow synovial fluid Gram stain and culture. Follow admitting blood culture. Patient started on daptomycin 04/03. Will get CPK at baseline, hold home atorvastatin. Caution with blood pressure medication as blood pressure was soft likely secondary to infection. Orthopedics on board, plan for left knee washout later today. Continue with daptomycin. Vitals are stable. Patient reports pain with range of motion, pain under control at rest. Aspirin and Eliquis on hold, consider resuming after surgery when bleeding risks deemed minimal per Ortho. Other chronic medical conditions: Continue with/resume home meds as and when able Atrial fibrillation, rate controlled, Eliquis on hold. Continue metoprolol Chronic systolic heart failure secondary to ischemic cardiomyopathy [EF 25%, TTE 2020]: No pitting edema but concern of congestion on x-ray. Monitor. CAD/CVA HTN: BP on lower side initially, Aldactone on hold. HLD: Statin on hold due to daptomycin T2DM: Sliding scale insulin while in hospital. A1c of 7.09 December 2022 BPH: Stable on regimen Past tobacco abuse DVT prophylaxis: SCDs for now, patient will be resumed on home Eliquis after the bleeding risks deemed minimal after the surgery. Last Eliquis dose 04/02 morning. DNR/DNI
[2023-04-03] MEDS ORDERED: DAPTOmycin 425 MG in SYRINGE 0 ML IV SCH (16:00)
[2023-04-03] MEDS ORDERED: ePHEDrine sulfate 50 MG/ML AMP IV PRN ×2 (18:06→18:26)
[2023-04-03] MEDS ORDERED: ONDANSETRON INJ 2 MG/ML 2 ML VIAL IV PRN ×3 (18:06→21:27)
[2023-04-03] MEDS ORDERED: fentaNYL citrate PF 100 MCG/2 ML VIAL IV PRN ×2 (18:06→18:26)
[2023-04-03] MEDS ORDERED: ATROPINE SULFATE 0.1 MG/ML 10ML SYR IV PRN ×2 (18:06→18:26)
--- NOTE | 2023-04-03 18:06 | Anesthesiology Consultation ---
Date of Service April 03, 2023 Assessment & Plan (1) Encounter for pre-operative examination: Chart Review Chart Review: Patient NOT seen in Pre Admission Testing urgent procedure d/t infection Consults Requested none History Surgery Operation Date: 04/03/23 12:45 Proposed Procedures p Left Knee Arthroscopic Incison and Drainage - Terrence Plata MD Height/Weight Height: 5 ft 9 in Weight: 87 kg Allergies Allergy/AdvReac Type Severity Reaction Status Date / Time Penicillins Allergy Severe TONGUE Verified 04/03/23 02:23 SWELLING amoxicillin [From Augmentin] AdvReac Unknown Vomiting Verified 04/03/23 02:23 clavulanic acid AdvReac Unknown Vomiting Verified 04/03/23 02:23 [From Augmentin] Medications Home Medications Medication Instructions Recorded Confirmed Last Taken atorvastatin 80 mg tablet 80 mg PO QAM 11/26/18 04/03/23 06/01/21 aspirin 81 mg tablet,delayed 81 mg PO QAM 01/03/19 04/03/23 05/30/21 release metoprolol succinate 50 mg 50 mg PO QAM 07/26/20 04/03/23 05/30/21 tablet,extended release 24 hr apixaban 5 mg tablet (Eliquis) 5 mg PO BID #60 tabs 02/07/21 04/03/23 05/29/21 furosemide 20 mg tablet 20 mg PO QAM #30 tabs 02/07/21 04/03/23 05/30/21 lisinopril 2.5 mg tablet 2.5 mg PO QAM 05/30/21 04/03/23 05/30/21 spironolactone 25 mg tablet 12.5 mg PO QAM 05/30/21 04/03/23 05/30/21 finasteride 5 mg tablet 5 mg PO QAM 08/02/22 04/03/23 Unknown tamsulosin 0.4 mg capsule 0.4 mg PO HS 08/02/22 04/03/23 Unknown Active Medications Generic Name Dose Route Start Last Admin Trade Name Freq PRN Reason Stop Dose Admin Finasteride 5 mg 04/03/23 09:00 04/03/23 08:35 Finasteride 5 Mg Tab PO 05/03/23 08:59 5 mg QAM ERNESTO Administration Daptomycin 425 mg/ Syringe 8.5 mls @ 4.25 mls/min 04/03/23 16:00 04/03/23 17:44 IV 05/15/23 15:59 4.25 mls/min Q24H ERNESTO Administration Protocol Insulin Aspart 0 units 04/03/23 06:15 04/03/23 14:13 Insulin Aspart Per Unit Charge SC 05/03/23 06:14 Not Given ACHS ERNESTO Insulin Glargine 5 units 04/03/23 09:00 04/03/23 08:41 Lantus Per Unit Charge SQ 05/03/23 08:59 5 units DAILY ERNESTO Administration Lisinopril 2.5 mg 04/03/23 09:00 04/03/23 08:35 Lisinopril 2.5 Mg Tab PO 05/03/23 08:59 2.5 mg QAM ERNESTO Administration Metoprolol Succinate 50 mg 04/03/23 09:00 04/03/23 08:35 Metoprolol Succ 50mg Ext Rel Tab PO 05/03/23 08:59 50 mg QAM ERNESTO Administration Past Medical History Medical History BPH with obstruction/lower urinary tract symptoms Degenerative disc disease Arthritis History of pyloric stenosis as a child Diabetes mellitus, type 2 NO MEDS History of skin cancer Transient ischemic attack (TIA) AROUND 2019? *NO PROBLEMS FROM EVENT HTN (hypertension) Systolic CHF FOLLOWS DR. LR>PT UNSURE OF CARDIAC HX Ischemic cardiomyopathy CAD (coronary artery disease) 1994-anterior wall [place], no intervention Dyslipidemia DM type 2 (diabetes mellitus, type 2) Past Family History Family History Sister Multiple myeloma Brother Heart disease Other No family history of adverse response to anesthesia Past Surgical History Surgical History History of colonoscopy History of repair of pyloric stenosis History of tooth extraction History of cardiac cath 1994 History of cataract surgery RT/LEFT History of appendectomy Social History Smoking Status: Former smoker tobacco type: cigarettes Do You Dip or Chew Tobacco: No Smoking End Date: 1984 Hx Alcohol Use: No Alcohol type: wine alcohol intake frequency: holidays/special occasions only Hx Substance Use: No substance use type: does not use Physical Exam Vital Signs Last Vital Signs Temp 97.9 F 04/03/23 15:50 Pulse 82 04/03/23 15:50 Resp 16 04/03/23 15:50 BP 104/54 L 04/03/23 15:50 Pulse Ox 96 04/03/23 15:50 O2 Del Method Room Air 04/03/23 15:50 Testing Laboratory Results 04/03/23 10:09 04/03/23 01:26 APTT 36 Seconds (21-31) H 04/03/23 01:25 Hemoglobin A1c 8.2 % (4.5-5.6) H 04/03/23 10:09 Urine Color [place] 04/03/23 02:22 Urine Appearance Cloudy (Clear) A 04/03/23 02:22 Urine pH 5.0 (4.5-7.5) 04/03/23 02:22 Ur Specific [place] 1.025 (1.000-1.030) 04/03/23 02:22 Urine Protein Trace (Negative) H 04/03/23 02:22 Urine Glucose (UA) Negative (Negative) 04/03/23 02:22 Urine Ketones Trace (Negative) H 04/03/23 02:22 Urine Nitrite Negative (Negative) 04/03/23 02:22 Ur Leukocyte Esterase Negative (Negative) 04/03/23 02:22 Urine WBC (Auto) 1-5 /hpf (0-5) 04/03/23 02:22 Urine RBC (Auto) 0-4 /hpf (0-4) 04/03/23 02:22 U Hyaline Cast (Auto) 0 /lpf (0-5) 04/03/23 02:22 U Epithel Cells (Auto) 20-30 /lpf (0-5) H 04/03/23 02:22 Urine Bacteria (Auto) 1+ (Negative) H 04/03/23 02:22 04/03/23 04:00 Gram Stain - Final Knee,Left 04/03/23 04/03/23 04/03/23 17:10 12:10 06:20 POC Glucose 133 H 143 H 226 H Electrocardiogram Date: 04/03/23 Findings: + AFIB @ and + LBBB Chest X-Ray Date: 04/03/23 Findings: + NAD Echocardiogram Date: 02/06/21 EF: 25 LV Function: dysfunctional (apical/septal/anterior wall akinesis)
[2023-04-03] MEDS ORDERED: fentaNYL citrate PF 100 MCG/2 ML VIAL ONE ×2 (18:29→19:23)
[2023-04-03] MEDS ORDERED: LIDOCAINE 2% 2 ML VIAL/AMP(20MG/ML) INFIL ONE (18:29)
[2023-04-03] MEDS ORDERED: PROPOFOL IV EMULSION 10 MG/ML 20 ML VIAL IV ONE (18:29)
[2023-04-03] MEDS ORDERED: ONDANSETRON INJ 2 MG/ML 2 ML VIAL ONE (18:29)
[2023-04-03] MEDS ORDERED: BUPIVACAINE 0.5 % 5 MG/1 ML MPF 30ML VIAL ONE (18:35)
[2023-04-03] MEDS ORDERED: ceFAZolin 2000MG 2,000 MG/15 ML SYR IV ONE (18:41)
[2023-04-03] MEDS ORDERED: ceFAZolin 2,000 MG/15 ML IV PUSH IV ONE (18:43)
[2023-04-03] MEDS ORDERED: EpINEphrine HCL INJ 1 MG/ML 1ML SYRINGE IR ONE (18:53)
[2023-04-03] MEDS ORDERED: TRANEXAMIC ACID / 0.7% NACL 1000MG/100ML BAG IV ONE (19:06)
[2023-04-03] MEDS ORDERED: NOREPINEPHRINE BITARTRATE 1 MG/ML 4 ML VIAL IV ONE (19:34)
[2023-04-03] MEDS ORDERED: ePHEDrine sulfate 50 MG/ML AMP ONE (20:30)
--- NOTE | 2023-04-03 20:31 | Operative Report ---
Post Operative Report Pre & Post Diagnosis Operation Date: 04/03/23 12:45 Pre-Op Diagnosis: Left Knee effusion with suspected septic arthritis Post-Op Diagnosis: Same I identified the patient and participated in the time-out.: Yes Procedure Operation Date: 04/03/23 12:45 Actual Procedures p Left Knee Arthroscopic Incison and Drainage, Extensive Debriedement(Left) - Terrence Plata MD Surgeon Terrence Plata MD Route Sales Driver None Estimated Blood Loss 10 Findings Consistent with Post-Op Diagnosis Specimens Fluid for Gram stain routine C&S AFB fungus tissue for biopsy fluid for cell count with differential and crystal analysis Drains Hemovac x 1 Anesthesia Type General Regional Complications none Disposition Accompanied Patient To Recovery: No Indications Kiko is 82. He has a 2-day history of severe left knee pain. He has an elevated white blood cell count. Elevated inflammatory markers. Purulent appearing fluid with Gram stain negative. Cell count is approximately 90,000 of the fluid. Positive for pseudogout. Signs and symptoms of sepsis. Labs excessively high for pseudogout. Suspect infection. Options discussed and I recommended Description of Procedure Informed consent. Patient identified. I marked the left knee with my initials. Preop surgical timeout performed. Preop dose of IV antibiotics given. TXA given. Tourniquet applied to the left thigh but not inflated. A lateral post was used for stressing the knee. The leg was scrubbed then prepped and draped in the usual sterile fashion. DVT prophylaxis with SCDs IntraOp. Postoperatively mobility mechanical devices and Eliquis. Exam under anesthesia showed a large effusion warmth without induration but there was mild erythema of the knee. Range of motion 0-1 20 ligaments intact. Routine prep and drape. Inferolateral viewing portal superior lateral outflow portal and inferomedial working portal. Diagnostic arthroscopy was performed. 9 L of sterile saline were run through the knee. Upon entering the knee a bhatti thick purulent type fluid was evacuated from the knee about 60 cc. This was sent for cell count with differential crystal analysis routine C&S fungus and AFB Gram stain. There is inflammation throughout the knee. Synovial biopsy was obtained and submitted for specimen. There was evidence of chondrocalcinosis throughout the knee. A thorough synovectomy was performed in the suprapatellar pouch medial lateral gutters and the anterior compartment and notch of the knee. I irrigated the posterior medial and lateral compartments although I did not instrument there. There was inflammation of the synovium. Some debris. Accessed through the Gillquist views. There was grade 4 chondrosis of the lateral patella and lateral trochlea. The lateral femoral condyle and tibial plateau otherwise were reasonably intact. There was degenerative fraying of the inner rim of the lateral meniscus without a discrete tear. The notch showed intact ACL PCL. There is degenerative fraying of the medial meniscus and a partial medial meniscectomy was performed with the shaver. There was some chondrosis present in the medial compartment. MCL perforated with spinal needle percutaneously to improve access. Chondrocalcinosis and partial fraying of the quadriceps tendon undersurface was noted and debrided. A drain was inserted into the knee through the superior lateral portal but not tied in. The arthroscopic portals were closed with 4-0 nylon. Soft sterile dressing was applied Xeroform 4 x 4's ABD soft wrap full-length Delbert wrap and a knee immobilizer. Patient was awakened from anesthesia difficulty and taken to the recovery room in stable condition. There were no complications. Counts were correct. Blood loss estimated to be 10 cc. Specimens as mentioned above. At the conclusion of the operation spoke to patient's informed her my findings. Will continue intravenous antibiotics and follow-up on cultures and other lab tests. I attest to the content of the Intraoperative Record and any orders documented therein. Any exceptions are noted below.
[2023-04-03 21:18] LABS: Appearance Synovial Fluid Turbid; Color Synovial Fluid Red; Mononuclear WBC Synovial 13.7 %; Polynuclear WBC Synovial 86.3 %; RBC Synovial Fluid Auto 163000 /uL; Source Synovial Fluid Knee; WBC Synovial Fluid Auto 84840 /ul (0-200)
--- NOTE | 2023-04-03 21:18 | Anesthesiology Progress Note ---
Date of Service April 03, 2023 Anesthesia Post Procedure Vital Signs Vital Signs: Temp Pulse Pulse Pulse Resp BP BP 04/03/23 21:05 89 24 04/03/23 20:55 97.7 F 98 H 22 04/03/23 20:45 94 H 22 04/03/23 20:35 96 H 22 04/03/23 20:26 98.2 F 105 H 20 04/03/23 18:21 98.6 F 84 20 98/68 L 04/03/23 15:50 97.9 F 82 16 104/54 L 04/03/23 14:01 89 04/03/23 10:42 96.3 F L 87 16 120/72 04/03/23 08:00 84 19 04/03/23 08:00 102/74 04/03/23 07:36 86 04/03/23 07:00 92/65 L 04/03/23 06:04 72 04/03/23 06:00 78 20 88/57 L 04/03/23 05:00 80 22 113/56 L 04/03/23 04:30 86 28 H 04/03/23 04:01 85 22 119/80 04/03/23 02:44 84 28 H 106/36 L 04/03/23 02:01 79 30 H 04/03/23 02:00 96 H 04/03/23 01:36 113 H 22 117/76 04/02/23 23:44 97.9 F 84 16 113/65 BP Pulse Ox O2 Del Method O2 Flow Rate 04/03/23 21:05 103/71 94 Nasal Cannula 2 04/03/23 20:55 101/52 L 96 Nasal Cannula 2 04/03/23 20:45 99/70 L 97 Room Air 04/03/23 20:35 118/50 L 97 Oxymask 6 04/03/23 20:26 104/59 L 97 Oxymask 6 04/03/23 18:21 97 Room Air 04/03/23 15:50 96 Room Air 04/03/23 14:01 04/03/23 10:42 97 Room Air 04/03/23 08:00 04/03/23 08:00 04/03/23 07:36 04/03/23 07:00 04/03/23 06:04 04/03/23 06:00 04/03/23 05:00 04/03/23 04:30 95 Room Air 04/03/23 04:01 95 Room Air 04/03/23 02:44 04/03/23 02:01 95 04/03/23 02:00 04/03/23 01:36 94 Room Air 04/02/23 23:44 96 Room Air Pain Intensity Left Knee: Pain Intensity: 1 Transfer of Care Handoff Completed per policy Notes Mental Status: alert / awake / arousable and participated in evaluation Patient Amnestic to Procedure: Yes Nausea / Vomiting: adequately controlled Pain: adequately controlled Airway Patency, RR, SpO2: stable & adequate BP & HR: stable & adequate Hydration State: stable & adequate Anesthetic Complications: no major complications apparent and Pt Satisfied with anesthetic care
[2023-04-03] MEDS ORDERED: traMADol HCL 50 MG TABLET PO PRN (21:27)
[2023-04-03] MEDS ORDERED: METOCLOPRAMIDE HCL INJ 5 MG/ML 2 ML VIAL IV PRN (21:27)
[2023-04-03] MEDS ORDERED: MAGNESIUM HYDROXIDE SUSP 30 ML UDC PO PRN (21:27)
[2023-04-03] MEDS ORDERED: HYDROmorphone INJ 0.5 MG/0.5 ML SYR IV PRN (21:27)
[2023-04-03] MEDS ORDERED: bisacodyL 10 MG SUPP PR PRN (21:27)
[2023-04-03] MEDS ORDERED: ACETAMINOPHEN 500 MG TAB PO PRN (21:27)
[2023-04-03] MEDS ORDERED: SODIUM CHLORIDE 0.9% 1,000 ML IV SCH (21:27)
[2023-04-03] MEDS ORDERED: NALOXONE HCL 0.4 MG/1 ML VIAL/CARP IV PRN (21:27)
[2023-04-03] MEDS: TAMSULOSIN HCL 0.4 MG CAP PO SCH ×2 (22:19→22:33)
[2023-04-03] MEDS: DOCUSATE SODIUM 100 MG CAP PO SCH ×2 (22:19→22:32)
[2023-04-03] MEDS: SENNA 8.6 MG TAB PO SCH ×2 (22:19→22:32)
[2023-04-04 06:06] LABS: BUN Creatinine Ratio 34.3 (10-20); Calcium 9.2 mg/dl (8.6-10.3); Est GFR (Non-African American) 68.1 ml/min; Magnesium 1.8 mg/dl (1.7-2.4); Potassium 4.2 mmol/L (3.5-5.1)
[2023-04-04 06:22] LABS: Basophils # (auto) 0.03 K/uL (0.00-0.20); Basophils % (auto) 0.3 %; Eosinophils # (auto) 0.04 K/uL (0.00-0.50); Eosinophils % (auto) 0.4 %; Hematocrit (blood only) 33.6 % (42.0-52.0); Hemoglobin 10.6 g/dl (14.0-18.0); Immature Granulocytes # (auto) 0.04 K/uL (0.01-0.20); Immature Granulocytes % (auto) 0.4 %; Lymphocytes # (auto) 0.96 K/uL (1.20-3.40); Lymphocytes % (auto) 8.7 %; Mean Corpuscular Hemoglobin 27.4 pg (25.0-34.0); Mean Corpuscular Hgb Conc 31.5 g/dL (32.0-36.0); Mean Corpuscular Volume 86.8 fL (80.0-100.0); Mean Platelet Volume 10.5 fL (9.4-12.4); Monocytes # (auto) 0.91 K/uL (0.11-0.59); Monocytes % (auto) 8.2 %; Neutrophils # (auto) 9.09 K/uL (1.40-6.50); Platelet Count 200 K/uL (130-400); RDW Coefficient of Variation 14.6 % (11.5-14.5); RDW Standard Deviation 46.5 fL (36.4-46.3); Red Blood Count 3.87 M/uL (4.70-6.10); White Blood Count 11.07 K/ul (4.8-10.8)
[2023-04-04] MEDS: DOCUSATE SODIUM 100 MG CAP PO SCH ×2 (08:16→20:52)
[2023-04-04] MEDS: APIXABAN 5 MG TABLET PO SCH ×2 (08:16→20:51)
[2023-04-04] MEDS: ASPIRIN 81 MG ECTAB PO SCH (08:16)
[2023-04-04] MEDS: MULTIVITAMIN TAB PO SCH (08:16)
[2023-04-04] MEDS: FINASTERIDE 5 MG TAB PO SCH (08:16)
[2023-04-04] MEDS: LANTUS PER UNIT CHARGE SQ SCH (09:05)
[2023-04-04] MEDS: INSULIN ASPART PER UNIT CHARGE SC SCH ×4 (09:05→20:51)
[2023-04-04] MEDS: METOPROLOL SUCC 50MG EXT REL TAB PO SCH (09:06)
[2023-04-04] MEDS: lisinopril 2.5 MG TAB PO SCH (09:06)
[2023-04-04] MEDS ORDERED: DAPTOmycin 500 MG in SYRINGE 0 ML IV SCH (10:00)
--- NOTE | 2023-04-04 10:15 | Orthopedic Progress Note ---
Date of Service April 04, 2023 Assessment & Plan (1) Septic arthritis: Plan: Postop day 1-status post arthroscopic I&D by Dr. Plata. He may weight-bear as tolerated with the knee immobilizer in place at all times. We want to avoid range of motion of the left knee while the Hemovac is in place. Hemovac functioning. Will plan to leave in until tomorrow () He may be out of bed with physical therapy and Occupational Therapy. Needs to use a walker at all times. May apply ice to the left knee as needed for pain and swelling. Will plan for dressing change tomorrow. Leave dressings in place and reinforce as necessary until then. Continue IV antibiotics. His Eliquis has been resumed. Dr. Plata present for today's visit. All questions answered. Will re-eval tomorrow. Admission and Anticipated Discharge Date Admission Date: April 03, 2023 Subjective Patient sitting in bed. Resting. No complaints of pain in his left knee. Pain 0 out of 10. Knee immobilizer in place. Surgical dressings in place. Hemovac functioning. Denies any postoperative complications such as lightheadedness, dizziness, nausea or vomiting. Denies any chest pain or shortness of breath. Physical Exam Musculoskeletal: Exam of his left lower extremity: The knee immobilizer in place. Surgical dressings are in place. The Hemovac is functioning. Minimal drainage. Has not been emptied yet by nursing. Full ankle dorsiflexion, plantarflexion, inversion and eversion. Strength is 5/5. Dorsalis pedis and posterior tibial pulses are 1+. Distal sensation is normal capillary fill is brisk. He is able to independently straight leg raise. Range of motion not attempted due to Hemovac in place. Results & Data Vital Signs (Past 12 Hours) Vital Signs Temp Pulse Pulse Resp BP Pulse Ox O2 Del Method 04/04/23 08:34 36.3 C L 95 H 16 123/63 93 Room Air 04/04/23 08:32 79 04/04/23 05:52 95 H 04/04/23 03:00 36.4 C L 93 H 20 119/65 94 Room Air 04/03/23 23:27 91 H 04/03/23 22:16 36.5 C 88 18 100/58 L 96 Nasal Cannula O2 Flow Rate 04/04/23 08:34 04/04/23 08:32 04/04/23 05:52 04/04/23 03:00 04/03/23 23:27 04/03/23 22:16 2 Laboratory Results blood culture showed no growth. - preliminary Fungus culture is negative Synovial fluid from the operating room shows 84,000 white blood cells Gram stain/culture - no growth to date - pending 04/04/23 04/04/23 04/03/23 Range/Units 08:25 05:19 22:29 WBC 11.07 H (4.8-10.8) K/ul RBC 3.87 L (4.70-6.10) M/uL Hgb 10.6 L (14.0-18.0) g/dl Hct 33.6 L (42.0-52.0) % MCV 86.8 (80.0-100.0) fL MCH 27.4 (25.0-34.0) pg MCHC 31.5 L (32.0-36.0) g/dL RDW Std Deviation 46.5 H (36.4-46.3) fL RDW Coeff of Earl 14.6 H (11.5-14.5) % Plt Count 200 (130-400) K/uL MPV 10.5 (9.4-12.4) fL Immature Gran % (Auto) 0.4 % Neut % (Auto) 82.0 % Lymph % (Auto) 8.7 % [place] % (Auto) 8.2 % Eos % (Auto) 0.4 % Baso % (Auto) 0.3 % Neut # (Auto) 9.09 H (1.40-6.50) K/uL Lymph # (Auto) 0.96 L (1.20-3.40) K/uL [place] # (Auto) 0.91 H (0.11-0.59) K/uL Eos # (Auto) 0.04 (0.00-0.50) K/uL Baso # (Auto) 0.03 (0.00-0.20) K/uL Immature Gran # (Auto) 0.04 (0.01-0.20) K/uL Sodium 133 L (136-145) mmol/L Potassium 4.2 (3.5-5.1) mmol/L Chloride 102 (98-107) mmol/L Carbon Dioxide 25 (21-32) mmol/L Anion Gap 6 (3-11) BUN 35 H (6-23) mg/dl Creatinine 1.02 (0.6-1.4) mg/dl Est Cr Clr Drug Dosing 61.0 ml/min Est GFR ( Amer) 79.0 ml/min Est GFR (Non-Af Amer) 68.1 ml/min BUN/Creatinine Ratio 34.3 H (10-20) Glucose 145 H (70-99(Fasting)) mg/dl POC Glucose 120 H 176 H (70-99) mg/dl Estimat Average Glucose mg/dl Hemoglobin A1c (4.5-5.6) % Calcium 9.2 (8.6-10.3) mg/dl Magnesium 1.8 (1.7-2.4) mg/dl Total Creatine Kinase (30-223) U/L Fluid Comment Synovial Source Synovial Color Synovial Appearance Synovial WBC (Auto) (0-200) /ul Synovial RBC (Auto) /uL Synovial Polynuclear % % Synovial Mononuclear % % Synovial Crystals 04/03/23 04/03/23 04/03/23 Range/Units 20:30 19:00 17:10 WBC (4.8-10.8) K/ul RBC (4.70-6.10) M/uL Hgb (14.0-18.0) g/dl Hct (42.0-52.0) % MCV (80.0-100.0) fL MCH (25.0-34.0) pg MCHC (32.0-36.0) g/dL RDW Std Deviation (36.4-46.3) fL RDW Coeff of Earl (11.5-14.5) % Plt Count (130-400) K/uL MPV (9.4-12.4) fL Immature Gran % (Auto) % Neut % (Auto) % Lymph % (Auto) % [place] % (Auto) % Eos % (Auto) % Baso % (Auto) % Neut # (Auto) (1.40-6.50) K/uL Lymph # (Auto) (1.20-3.40) K/uL [place] # (Auto) (0.11-0.59) K/uL Eos # (Auto) (0.00-0.50) K/uL Baso # (Auto) (0.00-0.20) K/uL Immature Gran # (Auto) (0.01-0.20) K/uL Sodium (136-145) mmol/L Potassium (3.5-5.1) mmol/L Chloride (98-107) mmol/L Carbon Dioxide (21-32) mmol/L Anion Gap (3-11) BUN (6-23) mg/dl Creatinine (0.6-1.4) mg/dl Est Cr Clr Drug Dosing ml/min Est GFR ( Amer) ml/min Est GFR (Non-Af Amer) ml/min BUN/Creatinine Ratio (10-20) Glucose (70-99(Fasting)) mg/dl POC Glucose 124 H 133 H (70-99) mg/dl Estimat Average Glucose mg/dl Hemoglobin A1c (4.5-5.6) % Calcium (8.6-10.3) mg/dl Magnesium (1.7-2.4) mg/dl Total Creatine Kinase (30-223) U/L Fluid Comment Synovial Source Knee Synovial Color Red Synovial Appearance Turbid Synovial WBC (Auto) 36455 H (0-200) /ul Synovial RBC (Auto) 760593 /uL Synovial Polynuclear % 86.3 % Synovial Mononuclear % 13.7 % Synovial Crystals Pending 04/03/23 04/03/23 04/03/23 Range/Units 12:10 10:09 05:08 WBC (4.8-10.8) K/ul RBC (4.70-6.10) M/uL Hgb 11.4 L (14.0-18.0) g/dl Hct 34.3 L (42.0-52.0) % MCV (80.0-100.0) fL MCH (25.0-34.0) pg MCHC (32.0-36.0) g/dL RDW Std Deviation (36.4-46.3) fL RDW Coeff of Earl (11.5-14.5) % Plt Count (130-400) K/uL MPV (9.4-12.4) fL Immature Gran % (Auto) % Neut % (Auto) % Lymph % (Auto) % [place] % (Auto) % Eos % (Auto) % Baso % (Auto) % Neut # (Auto) (1.40-6.50) K/uL Lymph # (Auto) (1.20-3.40) K/uL [place] # (Auto) (0.11-0.59) K/uL Eos # (Auto) (0.00-0.50) K/uL Baso # (Auto) (0.00-0.20) K/uL Immature Gran # (Auto) (0.01-0.20) K/uL Sodium (136-145) mmol/L Potassium (3.5-5.1) mmol/L Chloride (98-107) mmol/L Carbon Dioxide (21-32) mmol/L Anion Gap (3-11) BUN (6-23) mg/dl Creatinine (0.6-1.4) mg/dl Est Cr Clr Drug Dosing ml/min Est GFR ( Amer) ml/min Est GFR (Non-Af Amer) ml/min BUN/Creatinine Ratio (10-20) Glucose (70-99(Fasting)) mg/dl POC Glucose 143 H (70-99) mg/dl Estimat Average Glucose 189 mg/dl Hemoglobin A1c 8.2 H (4.5-5.6) % Calcium (8.6-10.3) mg/dl Magnesium (1.7-2.4) mg/dl Total Creatine Kinase 90 (30-223) U/L Fluid Comment Synovial Source Synovial Color Synovial Appearance Synovial WBC (Auto) (0-200) /ul Synovial RBC (Auto) /uL Synovial Polynuclear % % Synovial Mononuclear % % Synovial Crystals 04/03/23 Range/Units 04:00 WBC (4.8-10.8) K/ul RBC (4.70-6.10) M/uL Hgb (14.0-18.0) g/dl Hct (42.0-52.0) % MCV (80.0-100.0) fL MCH (25.0-34.0) pg MCHC (32.0-36.0) g/dL RDW Std Deviation (36.4-46.3) fL RDW Coeff of [place] (11.5-14.5) % plt Count (130-400) K/uL MPV (9.4-12.4) fL Immature Gran % (Auto) % Neut % (Auto) % Lymph % (Auto) % [place] % (Auto) % Eos % (Auto) % Baso % (Auto) % Neut # (Auto) (1.40-6.50) K/uL Lymph # (Auto) (1.20-3.40) K/uL [place] # (Auto) (0.11-0.59) K/uL Eos # (Auto) (0.00-0.50) K/uL Baso # (Auto) (0.00-0.20) K/uL Immature Gran # (Auto) (0.01-0.20) K/uL Sodium (136-145) mmol/L Potassium (3.5-5.1) mmol/L Chloride (98-107) mmol/L Carbon Dioxide (21-32) mmol/L Anion Gap (3-11) BUN (6-23) mg/dl Creatinine (0.6-1.4) mg/dl Est Cr Clr Drug Dosing ml/min Est GFR ( Amer) ml/min Est GFR (Non-Af Amer) ml/min BUN/Creatinine Ratio (10-20) Glucose (70-99(Fasting)) mg/dl POC Glucose (70-99) mg/dl Estimat Average Glucose mg/dl Hemoglobin A1c (4.5-5.6) % Calcium (8.6-10.3) mg/dl Magnesium (1.7-2.4) mg/dl Total Creatine Kinase (30-223) U/L Fluid Comment Synovial Source Synovial Color Synovial Appearance Synovial WBC (Auto) (0-200) /ul Synovial RBC (Auto) /uL Synovial Polynuclear % % Synovial Mononuclear % % Synovial Crystals
--- NOTE | 2023-04-04 12:16 | Infectious Disease Consult ---
Date of Service April 04, 2023 Telehealth Information I performed this visit using a real-time telehealth connection between my location and the patients location ([facility]). After connecting through interactive tele-video, patient was identified by name and date of and/or wristband check.Patient (or authorized healthcare chemical sales representative) was informed that this was a telemedicine visit and it was being conducted confidentially over secure lines. My office door was closed and no one else was present in the room with me.Patient (or authorized healthcare chemical sales representative) provided consent to proceed with the visit, expressed an understanding of privacy and security of the telemedicine visit, and gave permission to have a hospital chemical sales representative in the room in order to assist with the visit and to conduct portions of the visit, as needed. I informed the patient (or authorized healthcare chemical sales representative) that I reviewed their record and presented the opportunity for them to ask any questions regarding the visit today. The patient agreed to participate. Assessment & Plan (1) Pseudogout of knee: Plan Patient presenting with knee pain s/p arthrocentesis and I and D with calcium pyrophosphate crystals and no organisms on culture or gram stain. Patient currently receiving daptomycin. Recommendations: -Observe off abx -Manage pseudogout I have seen the patient today with the trainee and agree with the findings as well as assessment and plan as outlined. Patient admitted with significant pseudogout of the knee. No evidence of infection. Recommend stopping all antibiotics and treating with appropriate antiinflammatories. ID will sign off for now. Please call with any questions or should his clinical course change. Luis Alberto Finch MD History of Present Illness History of Present Illness Reason for consult: Septic arthritis Patient w/ PMHx T2DM, HFrEF, BPH, afib who presented with worsening left knee and left hip pain. The pain was not associated with any trauma. He did note worsening swelling of the knee. He denied fever and chills. In the ED left knee arthrocentesis was performed. Calcium pyrophosphate crystals were present. No growth on cultures or organisms seen but many WBCs. Lyme antibodies negative. Ortho performed I&D 04/03 and further fluid studies sent again with crystals, no organisms. Patient is currently receiving daptomycin. Allergies Allergy/AdvReac Type Severity Reaction Status Date / Time Penicillins Allergy Severe TONGUE Verified 04/03/23 02:23 SWELLING amoxicillin [From Augmentin] AdvReac Unknown Vomiting Verified 04/03/23 02:23 clavulanic acid AdvReac Unknown Vomiting Verified 04/03/23 02:23 [From Augmentin] Home Medications Medication Instructions Recorded Confirmed Type atorvastatin 80 mg tablet 80 mg PO QAM 11/26/18 04/03/23 History aspirin 81 mg tablet,delayed 81 mg PO QAM 01/03/19 04/03/23 History release metoprolol succinate 50 mg 50 mg PO QAM 07/26/20 04/03/23 History tablet,extended release 24 hr apixaban 5 mg tablet (Eliquis) 5 mg PO BID #60 tabs 02/07/21 04/03/23 Rx furosemide 20 mg tablet 20 mg PO QAM #30 tabs 02/07/21 04/03/23 Rx lisinopril 2.5 mg tablet 2.5 mg PO QAM 05/30/21 04/03/23 History spironolactone 25 mg tablet 12.5 mg PO QAM 05/30/21 04/03/23 History finasteride 5 mg tablet 5 mg PO QAM 08/02/22 04/03/23 History tamsulosin 0.4 mg capsule 0.4 mg PO HS 08/02/22 04/03/23 History Patient History Medical History BPH with obstruction/lower urinary tract symptoms Degenerative disc disease Arthritis History of pyloric stenosis as a child Diabetes mellitus, type 2 NO MEDS History of skin cancer Transient ischemic attack (TIA) AROUND 2019? *NO PROBLEMS FROM EVENT HTN (hypertension) Systolic CHF FOLLOWS DR. LR>PT UNSURE OF CARDIAC HX Ischemic cardiomyopathy CAD (coronary artery disease) 1994-anterior wall [place], no intervention Dyslipidemia DM type 2 (diabetes mellitus, type 2) Surgical History History of colonoscopy History of repair of pyloric stenosis History of tooth extraction History of cardiac cath 1994 History of cataract surgery RT/LEFT History of appendectomy Family History Sister Multiple myeloma Brother Heart disease Other No family history of adverse response to anesthesia Social History Smoking Status: Former smoker Smoking End Date: 1984; Second Hand Exposure: Yes ( A CHILD); Do You Dip or Chew Tobacco: No; Hx Alcohol Use: No Hx Substance Use: No Preferred Language: Maori Communication Ability: Effective Certified Alcohol And Drug Counselor Required: No Beliefs That Will Affect Care: None marital status: Current Living Situation: Spouse Other Information That Helps Us Care for You: No Feels Safe at Home: Yes Safety Concerns: Feels Safe At This Time Assistive Devices: Glasses Assistive Devices Comment: reading glasses Review of Systems Full ROS was performed and is negative unless mentioned in the HPI. Physical Exam Limited by telemed Well appearing, alert and oriented Results & Data Vital Signs (Past 12 Hours) Vital Signs Temp Pulse Pulse Resp BP Pulse Ox O2 Del Method 04/04/23 11:59 36.7 C 90 16 98/54 L 94 Room Air 04/04/23 08:34 36.3 C L 95 H 16 123/63 93 Room Air 04/04/23 08:32 79 04/04/23 05:52 95 H 04/04/23 03:00 36.4 C L 93 H 20 119/65 94 Room Air Laboratory Results Microbiology 04/03/23 02:22 Urine,Clean Catch Urine Culture - Preliminary Pin-point growth present, reincubating. 04/03/23 04:00 Knee,Left Gram Stain - Final 04/03/23 04:00 Knee,Left Aerobic and Anaerobic Culture - Preliminary No growth to date. 04/03/23 19:00 Knee,Left Fungal Smear - Final 04/03/23 05:30 Blood Aerobic Blood Culture - Preliminary No growth in Aerobic bottle after 24 hours. 04/03/23 05:30 Blood Anaerobic Blood Culture - Preliminary No growth in Anaerobic bottle after 24 hours. 04/03/23 05:32 Blood Aerobic Blood Culture - Preliminary No growth in Aerobic bottle after 24 hours. 04/03/23 05:32 Blood Anaerobic Blood Culture - Preliminary No growth in Anaerobic bottle after 24 hours. Laboratory Results - last 72 hr 04/03/23 04/03/23 04/03/23 01:25 01:26 02:22 WBC 16.95 H RBC 4.57 L Hgb 12.8 L Hct 38.6 L MCV 84.5 MCH 28.0 MCHC 33.2 RDW Std Deviation 44.5 RDW Coeff of Earl 14.6 H Plt Count 236 MPV 10.4 Immature Gran % (Auto) 0.5 Neut % (Auto) 87.7 Lymph % (Auto) 2.9 [place] % (Auto) 8.6 Eos % (Auto) 0.1 Baso % (Auto) 0.2 Neut # (Auto) 14.88 H Lymph # (Auto) 0.50 L [place] # (Auto) 1.45 H Eos # (Auto) 0.01 Baso # (Auto) 0.03 Immature Gran # (Auto) 0.08 ESR 42 H APTT 36 H PTT Ratio 1.3 Sodium 132 L Potassium 4.3 Chloride 98 Carbon Dioxide 25 Anion Gap 9 BUN 27 H Creatinine 1.17 Est Cr Clr Drug Dosing 53.2 Est GFR ( Amer) 66.9 Est GFR (Non-Af Amer) 57.7 BUN/Creatinine Ratio 23.1 H Glucose 217 H POC Glucose Estimat Average Glucose Hemoglobin A1c Osmolality 296 Lactate Calcium 9.4 Magnesium 1.6 L Total Bilirubin 2.2 H AST 14 ALT 17 Alkaline Phosphatase 73 Total Creatine Kinase Troponin I High Sens 16.8 C-Reactive Protein 20.00 H B-Natriuretic Peptide Total Protein 7.1 Albumin 3.8 Globulin 3.3 Albumin/Globulin Ratio 1.2 Procalcitonin 0.29 TSH 1.235 Urine Color [place] Urine Appearance Cloudy A Urine pH 5.0 Ur Specific [place] 1.025 Urine Protein Trace H Urine Glucose (UA) Negative Urine Ketones Trace H Urine Blood Negative Urine Nitrite Negative Urine Bilirubin Negative Urine Urobilinogen Negative Ur Leukocyte Esterase Negative Urine WBC (Auto) 1-5 Urine RBC (Auto) 0-4 U Hyaline Cast (Auto) 0 U Epithel Cells (Auto) 20-30 H Urine Bacteria (Auto) 1+ H Urine Mucus Present A Urine Osmolality 763 Ur Random Sodium 24 Fluid Comment Synovial Source Synovial Color Synovial Appearance Synovial WBC (Auto) Synovial RBC (Auto) Synovial Polynuclear % Synovial Mononuclear % Synovial Crystals Lyme Disease IgG Ab Negative Lyme Disease IgM Ab Negative 04/03/23 04/03/23 04/03/23 04:00 04:03 04:18 WBC RBC Hgb Hct MCV MCH MCHC RDW Std Deviation RDW Coeff of Earl Plt Count MPV Immature Gran % (Auto) Neut % (Auto) Lymph % (Auto) [place] % (Auto) Eos % (Auto) Baso % (Auto) Neut # (Auto) Lymph # (Auto) [place] # (Auto) Eos # (Auto) Baso # (Auto) Immature Gran # (Auto) ESR APTT PTT Ratio Sodium Potassium Chloride Carbon Dioxide Anion Gap BUN Creatinine Est Cr Clr Drug Dosing Est GFR ( Amer) Est GFR (Non-Af Amer) BUN/Creatinine Ratio Glucose POC Glucose Estimat Average Glucose Hemoglobin A1c Osmolality Lactate 1.8 Calcium Magnesium Total Bilirubin AST ALT Alkaline Phosphatase Total Creatine Kinase Troponin I High Sens C-Reactive Protein B-Natriuretic Peptide 482 H Total Protein Albumin Globulin Albumin/Globulin Ratio Procalcitonin TSH Urine Color Urine Appearance Urine pH Ur Specific [place] Urine Protein Urine Glucose (UA) Urine Ketones Urine Blood Urine Nitrite Urine Bilirubin Urine Urobilinogen Ur Leukocyte Esterase Urine WBC (Auto) Urine RBC (Auto) U Hyaline Cast (Auto) U Epithel Cells (Auto) Urine Bacteria (Auto) Urine Mucus Urine Osmolality Ur Random Sodium Fluid Comment Synovial Source Left Knee Synovial Color Yellow Synovial Appearance Turbid Synovial WBC (Auto) 06918 H Synovial RBC (Auto) 9000 Synovial Polynuclear % 93.6 Synovial Mononuclear % 6.4 Synovial Crystals Lyme Disease IgG Ab Lyme Disease IgM Ab 04/03/23 04/03/23 04/03/23 05:08 06:20 10:09 WBC RBC Hgb 11.4 L Hct 34.3 L MCV MCH MCHC RDW Std Deviation RDW Coeff of Earl Plt Count MPV Immature Gran % (Auto) Neut % (Auto) Lymph % (Auto) [place] % (Auto) Eos % (Auto) Baso % (Auto) Neut # (Auto) Lymph # (Auto) [place] # (Auto) Eos # (Auto) Baso # (Auto) Immature Gran # (Auto) ESR APTT PTT Ratio Sodium Potassium Chloride Carbon Dioxide Anion Gap BUN Creatinine Est Cr Clr Drug Dosing Est GFR ( Amer) Est GFR (Non-Af Amer) BUN/Creatinine Ratio Glucose POC Glucose 226 H Estimat Average Glucose 189 Hemoglobin A1c 8.2 H Osmolality Lactate Calcium Magnesium Total Bilirubin AST ALT Alkaline Phosphatase Total Creatine Kinase 90 Troponin I High Sens C-Reactive Protein B-Natriuretic Peptide Total Protein Albumin Globulin Albumin/Globulin Ratio Procalcitonin TSH Urine Color Urine Appearance Urine pH Ur Specific [place] Urine Protein Urine Glucose (UA) Urine Ketones Urine Blood Urine Nitrite Urine Bilirubin Urine Urobilinogen Ur Leukocyte Esterase Urine WBC (Auto) Urine RBC (Auto) U Hyaline Cast (Auto) U Epithel Cells (Auto) Urine Bacteria (Auto) Urine Mucus Urine Osmolality Ur Random Sodium Fluid Comment Synovial Source Synovial Color Synovial Appearance Synovial WBC (Auto) Synovial RBC (Auto) Synovial Polynuclear % Synovial Mononuclear % Synovial Crystals Lyme Disease IgG Ab Lyme Disease IgM Ab 04/03/23 04/03/23 04/03/23 12:10 17:10 19:00 WBC RBC Hgb Hct MCV MCH MCHC RDW Std Deviation RDW Coeff of Earl Plt Count MPV Immature Gran % (Auto) Neut % (Auto) Lymph % (Auto) [place] % (Auto) Eos % (Auto) Baso % (Auto) Neut # (Auto) Lymph # (Auto) [place] # (Auto) Eos # (Auto) Baso # (Auto) Immature Gran # (Auto) ESR APTT PTT Ratio Sodium Potassium Chloride Carbon Dioxide Anion Gap BUN Creatinine Est Cr Clr Drug Dosing Est GFR ( Amer) Est GFR (Non-Af Amer) BUN/Creatinine Ratio Glucose POC Glucose 143 H 133 H Estimat Average Glucose Hemoglobin A1c Osmolality Lactate Calcium Magnesium Total Bilirubin AST ALT Alkaline Phosphatase Total Creatine Kinase Troponin I High Sens C-Reactive Protein B-Natriuretic Peptide Total Protein Albumin Globulin Albumin/Globulin Ratio Procalcitonin TSH Urine Color Urine Appearance Urine pH Ur Specific [place] Urine Protein Urine Glucose (UA) Urine Ketones Urine Blood Urine Nitrite Urine Bilirubin Urine Urobilinogen Ur Leukocyte Esterase Urine WBC (Auto) Urine RBC (Auto) U Hyaline Cast (Auto) U Epithel Cells (Auto) Urine Bacteria (Auto) Urine Mucus Urine Osmolality Ur Random Sodium Fluid Comment Synovial Source Knee Synovial Color Red Synovial Appearance Turbid Synovial WBC (Auto) 74872 H Synovial RBC (Auto) 782041 Synovial Polynuclear % 86.3 Synovial Mononuclear % 13.7 Synovial Crystals Lyme Disease IgG Ab Lyme Disease IgM Ab 04/03/23 04/03/23 04/04/23 20:30 22:29 05:19 WBC 11.07 H RBC 3.87 L Hgb 10.6 L Hct 33.6 L MCV 86.8 MCH 27.4 MCHC 31.5 L RDW Std Deviation 46.5 H RDW Coeff of Earl 14.6 H Plt Count 200 MPV 10.5 Immature Gran % (Auto) 0.4 Neut % (Auto) 82.0 Lymph % (Auto) 8.7 [place] % (Auto) 8.2 Eos % (Auto) 0.4 Baso % (Auto) 0.3 Neut # (Auto) 9.09 H Lymph # (Auto) 0.96 L [place] # (Auto) 0.91 H Eos # (Auto) 0.04 Baso # (Auto) 0.03 Immature Gran # (Auto) 0.04 ESR APTT PTT Ratio Sodium 133 L Potassium 4.2 Chloride 102 Carbon Dioxide 25 Anion Gap 6 BUN 35 H Creatinine 1.02 Est Cr Clr Drug Dosing 61.0 Est GFR ( Amer) 79.0 Est GFR (Non-Af Amer) 68.1 BUN/Creatinine Ratio 34.3 H Glucose 145 H POC Glucose 124 H 176 H Estimat Average Glucose Hemoglobin A1c Osmolality Lactate Calcium 9.2 Magnesium 1.8 Total Bilirubin AST ALT Alkaline Phosphatase Total Creatine Kinase Troponin I High Sens C-Reactive Protein B-Natriuretic Peptide Total Protein Albumin Globulin Albumin/Globulin Ratio Procalcitonin TSH Urine Color Urine Appearance Urine pH Ur Specific [place] Urine Protein Urine Glucose (UA) Urine Ketones Urine Blood Urine Nitrite Urine Bilirubin Urine Urobilinogen Ur Leukocyte Esterase Urine WBC (Auto) Urine RBC (Auto) U Hyaline Cast (Auto) U Epithel Cells (Auto) Urine Bacteria (Auto) Urine Mucus Urine Osmolality Ur Random Sodium Fluid Comment Synovial Source Synovial Color Synovial Appearance Synovial WBC (Auto) Synovial RBC (Auto) Synovial Polynuclear % Synovial Mononuclear % Synovial Crystals Lyme Disease IgG Ab Lyme Disease IgM Ab 04/04/23 08:25 WBC RBC Hgb Hct MCV MCH MCHC RDW Std Deviation RDW Coeff of Earl Plt Count MPV Immature Gran % (Auto) Neut % (Auto) Lymph % (Auto) [place] % (Auto) Eos % (Auto) Baso % (Auto) Neut # (Auto) Lymph # (Auto) [place] # (Auto) Eos # (Auto) Baso # (Auto) Immature Gran # (Auto) ESR APTT PTT Ratio Sodium Potassium Chloride Carbon Dioxide Anion Gap BUN Creatinine Est Cr Clr Drug Dosing Est GFR ( Amer) Est GFR (Non-Af Amer) BUN/Creatinine Ratio Glucose POC Glucose 120 H Estimat Average Glucose Hemoglobin A1c Osmolality Lactate Calcium Magnesium Total Bilirubin AST ALT Alkaline Phosphatase Total Creatine Kinase Troponin I High Sens C-Reactive Protein B-Natriuretic Peptide Total Protein Albumin Globulin Albumin/Globulin Ratio Procalcitonin TSH Urine Color Urine Appearance Urine pH Ur Specific [place] Urine Protein Urine Glucose (UA) Urine Ketones Urine Blood Urine Nitrite Urine Bilirubin Urine Urobilinogen Ur Leukocyte Esterase Urine WBC (Auto) Urine RBC (Auto) U Hyaline Cast (Auto) U Epithel Cells (Auto) Urine Bacteria (Auto) Urine Mucus Urine Osmolality Ur Random Sodium Fluid Comment Synovial Source Synovial Color Synovial Appearance Synovial WBC (Auto) Synovial RBC (Auto) Synovial Polynuclear % Synovial Mononuclear % Synovial Crystals Lyme Disease IgG Ab Lyme Disease IgM Ab Diagnostic Findings Knee X-Ray 04/03/23 00:09 LEFT KNEE 3 VIEWS CLINICAL HISTORY: Atraumatic left knee pain. FINDINGS: AP, crosstable lateral, and sunrise views of the left knee are obtained. No prior studies are available for comparison at the time of dictation. The skeletal structures are osteopenic. No fracture is seen. There is moderate tricompartmental degenerative joint space narrowing, greatest at the patellofemoral articulation. There are marginal osteophytes and patellar enthesophytes. There is chondrocalcinosis of the medial and lateral compartments. There is a large joint effusion which contains calcific debris. Soft tissue edema is seen around the knee. There is atherosclerotic calcification of the popliteal artery. IMPRESSION: 1. Soft tissue swelling with no acute fracture identified. 2. Osteopenia with degenerative change and chondrocalcinosis as above. 3. Large joint effusion which contains calcific debris. Electronically signed by: Raudel Jackson M.D. 04/03/2023 8:43 AM Chest X-Ray 04/03/23 01:12 SINGLE VIEW CHEST CLINICAL HISTORY: Generalized weakness. FINDINGS: An AP, portable, upright chest radiograph is compared to chest x-ray and chest CT dated 02/06/2021. The examination is degraded by portable technique and patient rotation. The heart is enlarged and noting atherosclerotic calcification of the thoracic aorta. The pulmonary vasculature is noncongested. Chronic interstitial thickening is similar to previous. There is bibasilar scarring/atelectasis. The lungs and pleural spaces are otherwise clear. No pneumothorax is seen. The skeletal structures are osteopenic. The bony thorax is grossly intact. IMPRESSION: Cardiomegaly with no acute cardiopulmonary abnormality identified. ACT 112: Negative or not required by law. Electronically signed by: Raudel Jackson M.D. 04/03/2023 8:50 AM Venous Doppler Study 04/03/23 02:52 LEFT LOWER EXTREMITY VENOUS DOPPLER HISTORY: Left knee swelling. eval or dvt COMPARISON STUDY: None. FINDINGS: There is normal compressibility, flow, and augmentation within the left lower extremity deep venous system. IMPRESSION: No DVT within the left lower extremity. ACT 112: Negative or not required by law. Electronically signed by: Edward Phoenix M.D. 04/03/2023 6:40 AM Medications Administered Home Medications Medication Instructions Recorded Confirmed Last Taken atorvastatin 80 mg tablet 80 mg PO QAM 11/26/18 04/03/23 06/01/21 aspirin 81 mg tablet,delayed 81 mg PO QAM 01/03/19 04/03/23 05/30/21 release metoprolol succinate 50 mg 50 mg PO QAM 07/26/20 04/03/23 05/30/21 tablet,extended release 24 hr apixaban 5 mg tablet (Eliquis) 5 mg PO BID #60 tabs 02/07/21 04/03/23 05/29/21 furosemide 20 mg tablet 20 mg PO QAM #30 tabs 02/07/21 04/03/23 05/30/21 lisinopril 2.5 mg tablet 2.5 mg PO QAM 05/30/21 04/03/23 05/30/21 spironolactone 25 mg tablet 12.5 mg PO QAM 05/30/21 04/03/23 05/30/21 finasteride 5 mg tablet 5 mg PO QAM 08/02/22 04/03/23 Unknown tamsulosin 0.4 mg capsule 0.4 mg PO HS 08/02/22 04/03/23 Unknown Active Medications Generic Name Dose Route Start Last Admin Trade Name Freq PRN Reason Stop Dose Admin Apixaban 5 mg 04/04/23 09:00 04/04/23 08:16 Apixaban 5 Mg Tablet PO 05/04/23 08:59 5 mg BID ERNESTO Administration Aspirin 81 mg 04/04/23 09:00 04/04/23 08:16 Aspirin 81 Mg Ectab PO 05/04/23 08:59 81 mg QAM ERNESTO Administration Docusate Sodium 100 mg 04/03/23 21:27 04/04/23 08:16 Docusate Sodium 100 Mg Cap PO 05/03/23 21:26 100 mg BID ERNESTO Administration Finasteride 5 mg 04/03/23 09:00 04/04/23 08:16 Finasteride 5 Mg Tab PO 05/03/23 08:59 5 mg QAM ERNESTO Administration Daptomycin 500 mg/ Syringe 10 mls @ 5 mls/min 04/04/23 10:00 04/04/23 10:50 IV 05/15/23 09:59 5 mls/min Q24H ERNESTO Administration Protocol Insulin Aspart 0 units 04/03/23 06:15 04/04/23 09:05 Insulin Aspart Per Unit Charge SC 05/03/23 06:14 3 units ACHS ERNESTO Administration Insulin Glargine 5 units 04/03/23 09:00 04/04/23 09:05 Lantus Per Unit Charge SQ 05/03/23 08:59 5 units DAILY ERNESOT Administration Lisinopril 2.5 mg 04/03/23 09:00 04/04/23 09:06 Lisinopril 2.5 Mg Tab PO 05/03/23 08:59 2.5 mg QAM ERNESTO Administration Metoprolol Succinate 50 mg 04/03/23 09:00 04/04/23 09:06 Metoprolol Succ 50mg Ext Rel Tab PO 05/03/23 08:59 50 mg QAM ERNESTO Administration Multivitamins 1 tab 04/04/23 09:00 04/04/23 08:16 Multivitamin Tab PO 05/04/23 08:59 1 tab QAM ERNESTO Administration Sennosides 17.2 mg 04/03/23 21:27 04/03/23 22:32 Senna 8.6 Mg Tab PO 05/03/23 21:26 17.2 mg HS ERNESTO Administration Tamsulosin HCl 0.4 mg 04/03/23 21:00 04/03/23 22:33 Tamsulosin Hcl 0.4 Mg Cap PO 05/03/23 20:59 0.4 mg HS ERNESTO Administration
--- NOTE | 2023-04-04 13:56 | Hospitalist Progress Note ---
Date of Service April 04, 2023 Assessment & Plan (1) Septic arthritis: Plan: 82-year-old male with PMH of chronic systolic heart failure secondary to ischemic cardiomyopathy [EF 25%, TTE 2020], CAD, HTN, HLD, CVA, T2DM diet- controlled, chronic anemia [baseline hemoglobin of 13], BPH, skin cancer, past tobacco abuse presents to the ED with 2-day history of achy left hip pain which later moved to left knee. No recollection of recent trauma. Left knee pain was worse with ambulation. Denied fever at presentation. He is being managed for the following: Left septic arthritis Purulent fluid obtained on left knee arthrocentesis at the ED. Admitting left knee x-ray with large joint effusion. LLE venous Doppler negative for DVT. Significant leukocytosis noted in sign of infection. s/p Left Knee Arthroscopic Incision and Drainage on 04/03/2023 Continue daptomycin. Will follow-up on Intra-Op culture. Await infectious disease recommendation Pain control Aspirin and Eliquis resumed. Continue PT OT Other chronic medical conditions: Continue with/resume home meds as and when able Atrial fibrillation- rate controlled, hold Eliquis continue metoprolol Chronic systolic heart failure secondary to ischemic cardiomyopathy [EF 25%, TTE 2020]: No pitting edema but concern of congestion on x-ray. Monitor. HTN: On lisinopril. Spironolactone on hold. HLD: Statin on hold due to daptomycin T2DM: Sliding scale insulin while in hospital. A1c of 7.7% December 2022 BPH: Stable on regimen Past tobacco abuse Time spent evaluating patient, direct bedside care, chart review, placing orders, interpretation of diagnostic studies, discussion with consultants, patient, and family members, as well as other required patient management activities is 55 minutes Please note the above document was generated using voice recognition software. It may contain grammatical, syntax or spelling errors. Any formal questions or concerns about the content, text or information contained within the body of this dictation should be directly addressed to the provider for clarification Admission and Anticipated Discharge Date Admission Date: April 03, 2023 Subjective Patient seen and examined at bedside. He is sitting on the chair at the side of the bed; not in distress. He denies any fever, chills, chest pain or shortness of breath. Review of Systems Review of Systems: All systems reviewed & are unremarkable except as noted in Subjective Physical Exam Physical Exam: Constitutional: Alert oriented x 3; not in distress Respiratory: normal respiratory effort, lungs clear to auscultation, no wheeze, rales, rhonchi. Normal insp/exp effort, no accessory muscle use Cardiovascular: RRR, no murmur, no edema Vessels: no JVD or carotid bruit Chest: normal inspection of chest Abdomen: normal bowel sounds, soft, nontender, no hepatosplenomegaly Musculoskeletal: Left knee bandaged with serosanguineous drainage. Skin: no rashes, warm and dry normal turgor Neurologic: PERRL, EOMI, accommodation nl, no face palsy, no dysarthria CN's II- XI intact bilaterally and moves all extremities Psychiatric: A+Ox3, euthymic affect Results & Data Results & Data Vital Signs (Past 12 Hours) Vital Signs Temp Pulse Pulse Resp BP Pulse Ox O2 Del Method 04/04/23 11:59 36.7 C 90 16 98/54 L 94 Room Air 04/04/23 08:34 36.3 C L 95 H 16 123/63 93 Room Air 04/04/23 08:32 79 04/04/23 05:52 95 H 04/04/23 03:00 36.4 C L 93 H 20 119/65 94 Room Air
[2023-04-04] MEDS: SENNA 8.6 MG TAB PO SCH (20:51)
[2023-04-04] MEDS: TAMSULOSIN HCL 0.4 MG CAP PO SCH (20:52)
[2023-04-05 06:29] LABS: Basophils # (auto) 0.02 K/uL (0.00-0.20); Basophils % (auto) 0.2 %; Eosinophils # (auto) 0.04 K/uL (0.00-0.50); Eosinophils % (auto) 0.4 %; Hematocrit (blood only) 33.1 % (42.0-52.0); Immature Granulocytes # (auto) 0.04 K/uL (0.01-0.20); Immature Granulocytes % (auto) 0.4 %; Lymphocytes # (auto) 0.86 K/uL (1.20-3.40); Lymphocytes % (auto) 7.9 %; Mean Corpuscular Hemoglobin 28.1 pg (25.0-34.0); Mean Corpuscular Hgb Conc 33.2 g/dL (32.0-36.0); Mean Corpuscular Volume 84.7 fL (80.0-100.0); Mean Platelet Volume 10.7 fL (9.4-12.4); Monocytes # (auto) 1.05 K/uL (0.11-0.59); Monocytes % (auto) 9.7 %; Neutrophils # (auto) 8.84 K/uL (1.40-6.50); Neutrophils % (auto) 81.4 %; Platelet Count 224 K/uL (130-400); RDW Coefficient of Variation 14.7 % (11.5-14.5); RDW Standard Deviation 45.4 fL (36.4-46.3); Red Blood Count 3.91 M/uL (4.70-6.10); White Blood Count 10.85 K/ul (4.8-10.8)
[2023-04-05 06:51] LABS: BUN Creatinine Ratio 35.2 (10-20); Calcium 9.4 mg/dl (8.6-10.3); Creatinine Clr Calc Pharmacy 68.4 ml/min; Est GFR (African American) 90.6 ml/min; Est GFR (Non-African American) 78.2 ml/min
[2023-04-05] MEDS: MULTIVITAMIN TAB PO SCH (07:59)
[2023-04-05] MEDS: METOPROLOL SUCC 50MG EXT REL TAB PO SCH (07:59)
[2023-04-05] MEDS: FINASTERIDE 5 MG TAB PO SCH (07:59)
[2023-04-05] MEDS: lisinopril 2.5 MG TAB PO SCH (08:00)
[2023-04-05] MEDS: ASPIRIN 81 MG ECTAB PO SCH (08:00)
[2023-04-05] MEDS: DOCUSATE SODIUM 100 MG CAP PO SCH ×2 (08:00→19:52)
[2023-04-05] MEDS: APIXABAN 5 MG TABLET PO SCH ×2 (08:00→19:52)
[2023-04-05] MEDS: LANTUS PER UNIT CHARGE SQ SCH (09:04)
[2023-04-05] MEDS: INSULIN ASPART PER UNIT CHARGE SC SCH ×4 (09:04→21:13)
--- NOTE | 2023-04-05 10:10 | Orthopedic Progress Note ---
Date of Service April 05, 2023 Assessment & Plan (1) Septic arthritis: Plan: Postop day 2-status post arthroscopic I&D by Dr. Plata. He may weight-bear as tolerated. Discontinue Knee immobilizer. May do range of motion to left knee as tolerated. Hemovac removed today. Delbert bandage and 4x4s applied to removal site for compression for another day or so. He may be out of bed with physical therapy and Occupational Therapy. Needs to use a walker at all times. May apply ice to the left knee as needed for pain and swelling. Appreicate ID recommendations: Discontinue Abx and treat for pseudogout. His Eliquis has been resumed. Okay from ortho standpoint for discharge when medically stable. Will discuss findings with DR. Plata. Admission and Anticipated Discharge Date Admission Date: April 03, 2023 Subjective Patient is doing well. Pain is much improved. Patient states it's "night and day" from before surgery. Is wanting to get out of bed to chair. Physical Exam Musculoskeletal: Left knee post op dressings removed. Hemovac functioning and removed today. Incisions clean, dry and intact. Trace effusion. No ecchymosis, erythema or warmth. Mild lower leg edema. Able to independently SLR LLE. sutures retained . No active drainage. 4x4's and delbert bandage applied to left knee today due to hemovac being removed. Distal pulses 1+, Full ankle ROM and strength 5/5. Tolerates active ROM to 20-30 degrees with production of knee pain. Results & Data Vital Signs (Past 12 Hours) Vital Signs Temp Pulse Pulse Resp BP Pulse Ox O2 Del Method 04/05/23 07:50 36.5 C 81 16 117/68 90 Room Air 04/05/23 06:00 110 H 04/05/23 04:00 36.9 C 96 H 20 117/72 93 Room Air 04/04/23 23:59 94 H Laboratory Results 04/05/23 04/05/23 04/04/23 Range/Units 08:11 05:36 20:16 WBC 10.85 H (4.8-10.8) K/ul RBC 3.91 L (4.70-6.10) M/uL Hgb 11.0 L (14.0-18.0) g/dl Hct 33.1 L (42.0-52.0) % MCV 84.7 (80.0-100.0) fL MCH 28.1 (25.0-34.0) pg MCHC 33.2 (32.0-36.0) g/dL RDW Std Deviation 45.4 (36.4-46.3) fL RDW Coeff of Earl 14.7 H (11.5-14.5) % Plt Count 224 (130-400) K/uL MPV 10.7 (9.4-12.4) fL Immature Gran % (Auto) 0.4 % Neut % (Auto) 81.4 % Lymph % (Auto) 7.9 % [place] % (Auto) 9.7 % Eos % (Auto) 0.4 % Baso % (Auto) 0.2 % Neut # (Auto) 8.84 H (1.40-6.50) K/uL Lymph # (Auto) 0.86 L (1.20-3.40) K/uL [place] # (Auto) 1.05 H (0.11-0.59) K/uL Eos # (Auto) 0.04 (0.00-0.50) K/uL Baso # (Auto) 0.02 (0.00-0.20) K/uL Immature Gran # (Auto) 0.04 (0.01-0.20) K/uL Sodium 134 L (136-145) mmol/L Potassium 4.0 (3.5-5.1) mmol/L Chloride 102 (98-107) mmol/L Carbon Dioxide 24 (21-32) mmol/L Anion Gap 8 (3-11) BUN 32 H (6-23) mg/dl Creatinine 0.91 (0.6-1.4) mg/dl Est Cr Clr Drug Dosing 68.4 ml/min Est GFR ( Amer) 90.6 ml/min Est GFR (Non-Af Amer) 78.2 ml/min BUN/Creatinine Ratio 35.2 H (10-20) Glucose 175 H (70-99(Fasting)) mg/dl POC Glucose 206 H 161 H (70-99) mg/dl Calcium 9.4 (8.6-10.3) mg/dl Synovial Crystals 04/04/23 04/04/23 04/03/23 Range/Units 17:23 12:28 19:00 WBC (4.8-10.8) K/ul RBC (4.70-6.10) M/uL Hgb (14.0-18.0) g/dl Hct (42.0-52.0) % MCV (80.0-100.0) fL MCH (25.0-34.0) pg MCHC (32.0-36.0) g/dL RDW Std Deviation (36.4-46.3) fL RDW Coeff of Earl (11.5-14.5) % Plt Count (130-400) K/uL MPV (9.4-12.4) fL Immature Gran % (Auto) % Neut % (Auto) % Lymph % (Auto) % [place] % (Auto) % Eos % (Auto) % Baso % (Auto) % Neut # (Auto) (1.40-6.50) K/uL Lymph # (Auto) (1.20-3.40) K/uL [place] # (Auto) (0.11-0.59) K/uL Eos # (Auto) (0.00-0.50) K/uL Baso # (Auto) (0.00-0.20) K/uL Immature Gran # (Auto) (0.01-0.20) K/uL Sodium (136-145) mmol/L Potassium (3.5-5.1) mmol/L Chloride (98-107) mmol/L Carbon Dioxide (21-32) mmol/L Anion Gap (3-11) BUN (6-23) mg/dl Creatinine (0.6-1.4) mg/dl Est Cr Clr Drug Dosing ml/min Est GFR ( Amer) ml/min Est GFR (Non-Af Amer) ml/min BUN/Creatinine Ratio (10-20) Glucose (70-99(Fasting)) mg/dl POC Glucose 136 H 171 H (70-99) mg/dl Calcium (8.6-10.3) mg/dl Synovial Crystals Microbiology 04/03/23 02:22 Urine Culture - Final Urine,Clean Catch Three types of organisms present, all low counts probable skin genaro. No further identifications or sensitivities to follow. 04/03/23 19:00 Acid Fast Bacilli Smear - Final Joint Fluid/Space (Synovial) 04/03/23 05:30 Aerobic Blood Culture - Preliminary Blood No growth in Aerobic bottle after 48 hours. Anaerobic Blood Culture - Preliminary No growth in Anaerobic bottle after 48 hours. 04/03/23 05:32 Aerobic Blood Culture - Preliminary Blood No growth in Aerobic bottle after 48 hours. Anaerobic Blood Culture - Preliminary No growth in Anaerobic bottle after 48 hours. 04/03/23 04:00 Gram Stain - Final Knee,Left Aerobic and Anaerobic Culture - Preliminary No growth to date. 04/03/23 19:00 Fungal Smear - Final Knee,Left
--- NOTE | 2023-04-05 12:07 | Hospitalist Progress Note ---
Date of Service April 05, 2023 Assessment & Plan (1) Septic arthritis: Plan: 82-year-old male with PMH of chronic systolic heart failure secondary to ischemic cardiomyopathy [EF 25%, TTE 2020], CAD, HTN, HLD, CVA, T2DM diet- controlled, chronic anemia [baseline hemoglobin of 13], BPH, skin cancer, past tobacco abuse presents to the ED with 2-day history of achy left hip pain which later moved to left knee. No recollection of recent trauma. Left knee pain was worse with ambulation. Denied fever at presentation. He is being managed for the following: Left septic arthritis, ruled out Pseudogout Patient presented with left knee pain. Admitting left knee x-ray with large joint effusion. LLE venous Doppler negative for DVT. Significant leukocytosis noted in sign of infection. s/p Left Knee Arthroscopic Incision and Drainage on 04/03/2023 Intraoperative culture and Gram stain negative Blood cultureno growth Discussed with infectious disease and orthopedics; less likely septic arthritis as culture and Gram stain are negative. Recommended to stop antibiotic and observe. Pain control Aspirin and Eliquis resumed. Continue PT OT Other chronic medical conditions: Continue with/resume home meds as and when able Atrial fibrillation- rate controlled, hold Eliquis continue metoprolol Chronic systolic heart failure secondary to ischemic cardiomyopathy [EF 25%, TTE 2020]: No pitting edema but concern of congestion on x-ray. Monitor. HTN: On lisinopril. Spironolactone on hold. HLD: continue statin T2DM: Sliding scale insulin while in hospital. A1c of 7.7% December 2022 BPH: Stable on regimen Past tobacco abuse Dispositioncontinue to monitor off antibiotics as per infectious disease recommendation. Possible DC in a.m. if clinically stable. Time spent evaluating patient, direct bedside care, chart review, placing orders, interpretation of diagnostic studies, discussion with consultants, patient, and family members, as well as other required patient management activities is 55 minutes Please note the above document was generated using voice recognition software. It may contain grammatical, syntax or spelling errors. Any formal questions or concerns about the content, text or information contained within the body of this dictation should be directly addressed to the provider for clarification Admission and Anticipated Discharge Date Admission Date: April 03, 2023 Subjective Patient seen and examined at bedside. He appears comfortable; not in any distress. He is able to walk without any issues. No fever or chills overnight. Review of Systems Review of Systems: All systems reviewed & are unremarkable except as noted in Subjective Physical Exam Physical Exam: Constitutional: Alert oriented x 3; not in distress Respiratory: normal respiratory effort, lungs clear to auscultation, no wheeze, rales, rhonchi. Normal insp/exp effort, no accessory muscle use Cardiovascular: RRR, no murmur, no edema Vessels: no JVD or carotid bruit Chest: normal inspection of chest Abdomen: normal bowel sounds, soft, nontender, no hepatosplenomegaly Musculoskeletal: Left knee bandaged with serosanguineous in the drain Skin: no rashes, warm and dry normal turgor Neurologic: PERRL, EOMI, accommodation nl, no face palsy, no dysarthria CN's II- XI intact bilaterally and moves all extremities Psychiatric: A+Ox3, euthymic affect Results & Data Results & Data Vital Signs (Past 12 Hours) Vital Signs Temp Pulse Pulse Resp BP Pulse Ox O2 Del Method 04/05/23 11:35 37.0 C 52 L 16 99/60 L 98 Room Air 04/05/23 07:50 36.5 C 81 16 117/68 90 Room Air 04/05/23 06:00 110 H 04/05/23 04:00 36.9 C 96 H 20 117/72 93 Room Air
[2023-04-05] MEDS: ATORVASTATIN 40 MG TAB PO SCH (13:04)
[2023-04-05] MEDS: SENNA 8.6 MG TAB PO SCH (19:51)
[2023-04-05] MEDS: TAMSULOSIN HCL 0.4 MG CAP PO SCH (19:52)
[2023-04-05 22:18] LABS: Lyme DNA PCR CSF or Synovial Not Detected (Not Detected); Lyme DNA Source SYNOVIAL FLUID
[2023-04-06 06:24] LABS: Basophils # (auto) 0.04 K/uL (0.00-0.20); Basophils % (auto) 0.4 %; Eosinophils # (auto) 0.11 K/uL (0.00-0.50); Eosinophils % (auto) 1.2 %; Hematocrit (blood only) 31.6 % (42.0-52.0); Hemoglobin 10.2 g/dl (14.0-18.0); Immature Granulocytes # (auto) 0.03 K/uL (0.01-0.20); Immature Granulocytes % (auto) 0.3 %; Lymphocytes % (auto) 9.7 %; Mean Corpuscular Hemoglobin 27.6 pg (25.0-34.0); Mean Corpuscular Hgb Conc 32.3 g/dL (32.0-36.0); Mean Corpuscular Volume 85.4 fL (80.0-100.0); Mean Platelet Volume 10.4 fL (9.4-12.4); Monocytes # (auto) 1.02 K/uL (0.11-0.59); Neutrophils # (auto) 7.19 K/uL (1.40-6.50); Neutrophils % (auto) 77.4 %; Platelet Count 224 K/uL (130-400); RDW Coefficient of Variation 14.6 % (11.5-14.5); RDW Standard Deviation 45.5 fL (36.4-46.3); White Blood Count 9.29 K/ul (4.8-10.8)
[2023-04-06 06:32] LABS: Calcium 9.1 mg/dl (8.6-10.3); Creatinine Clr Calc Pharmacy 62.2 ml/min; Est GFR (African American) 80.9 ml/min; Est GFR (Non-African American) 69.8 ml/min
[2023-04-06] MEDS: INSULIN ASPART PER UNIT CHARGE SC SCH (08:42)
[2023-04-06] MEDS: LANTUS PER UNIT CHARGE SQ SCH (08:43)
[2023-04-06] MEDS: ASPIRIN 81 MG ECTAB PO SCH (08:43)
[2023-04-06] MEDS: APIXABAN 5 MG TABLET PO SCH (08:43)
[2023-04-06] MEDS: METOPROLOL SUCC 50MG EXT REL TAB PO SCH (08:44)
[2023-04-06] MEDS: FINASTERIDE 5 MG TAB PO SCH (08:44)
[2023-04-06] MEDS: DOCUSATE SODIUM 100 MG CAP PO SCH (08:44)
[2023-04-06] MEDS: lisinopril 2.5 MG TAB PO SCH (08:44)
[2023-04-06] MEDS: MULTIVITAMIN TAB PO SCH (08:44)
[2023-04-06] MEDS: ATORVASTATIN 40 MG TAB PO SCH (08:45)
--- NOTE | 2023-04-06 11:43 | Orthopedic Progress Note ---
Date of Service April 06, 2023 Assessment & Plan (1) Septic arthritis: Plan: Postop day 3-status post arthroscopic I&D by Dr. Plata. He may weight-bear as tolerated. May do range of motion to left knee as tolerated. Delbert bandage and 4x4s applied to removal site for compression for another day or so. He may be out of bed with physical therapy and Occupational Therapy. Needs to use a walker at all times. May apply ice to the left knee as needed for pain and swelling. Appreicate ID recommendations: Discontinue Abx and treat for pseudogout. His Eliquis has been resumed. Okay from ortho standpoint for discharge when medically stable. Will discuss findings with DR. Plata. Will f/u in our office in 1 week Set to begin home PT on Sunday with [facility] Admission and Anticipated Discharge Date Admission Date: April 03, 2023 Subjective This 82-year-old male seen in follow-up after undergoing Left Knee Arthroscopic Incison and Drainage, Extensive Debriedement with Dr. Plata on April 03. He is doing very well this morning. He is anxious to be discharged. He states that he is set up with in-home physical therapy using [facility] this coming Sunday. He denies chest pain, shortness of breath, fever, chills, sweats but continues to have some limited range of motion of his left knee. Review of Systems Review of Systems: All systems reviewed & are unremarkable except as noted in Subjective Physical Exam Physical Exam: Left knee: Delbert bandage was removed. Incision site is closed with suture in place. No dicharge. There is a small effusion and edema. There is no erythema, ecchymosis or warmth. Patient is about 6 degrees short of terminal extension and is able to actively flex to about 75 degrees. He is able to perform active straight leg raise test and actively dorsi and plantarflex foot without issue. His peripheral pulses are 2+. Capillary fill is less than 2 seconds. He is neurovascularly intact in the left lower extremity. Results & Data Vital Signs (Past 12 Hours) Vital Signs Temp Pulse Pulse Pulse Pulse Resp BP 04/06/23 11:26 36.5 C 99 H 92 H 85 16 103/64 04/06/23 11:25 36.5 C 92 H 16 04/06/23 07:58 36.5 C 92 H 18 04/06/23 07:24 103 H 04/06/23 03:05 36.9 C 85 16 04/06/23 00:41 88 BP Pulse Ox O2 Del Method 04/06/23 11:26 123/73 95 04/06/23 11:25 123/73 95 Room Air 04/06/23 07:58 108/66 93 Room Air 04/06/23 07:24 04/06/23 03:05 99/51 L 94 Room Air 04/06/23 00:41 Diagnostic Findings Laboratory Results WBC 9.29 K/ul (4.8-10.8) 04/06/23 05:28 RBC 3.70 M/uL (4.70-6.10) L 04/06/23 05:28 Hgb 10.2 g/dl (14.0-18.0) L 04/06/23 05:28 Hct 31.6 % (42.0-52.0) L 04/06/23 05:28 MCV 85.4 fL (80.0-100.0) 04/06/23 05:28 MCH 27.6 pg (25.0-34.0) 04/06/23 05:28 MCHC 32.3 g/dL (32.0-36.0) 04/06/23 05:28 RDW Std Deviation 45.5 fL (36.4-46.3) 04/06/23 05:28 RDW Coeff of Earl 14.6 % (11.5-14.5) H 04/06/23 05:28 Plt Count 224 K/uL (130-400) 04/06/23 05:28 MPV 10.4 fL (9.4-12.4) 04/06/23 05:28 Immature Gran % (Auto) 0.3 % 04/06/23 05:28 Neut % (Auto) 77.4 % 04/06/23 05:28 Lymph % (Auto) 9.7 % 04/06/23 05:28 [place] % (Auto) 11.0 % 04/06/23 05:28 Eos % (Auto) 1.2 % 04/06/23 05:28 Baso % (Auto) 0.4 % 04/06/23 05:28 Neut # (Auto) 7.19 K/uL (1.40-6.50) H 04/06/23 05:28 Lymph # (Auto) 0.90 K/uL (1.20-3.40) L 04/06/23 05:28 [place] # (Auto) 1.02 K/uL (0.11-0.59) H 04/06/23 05:28 Eos # (Auto) 0.11 K/uL (0.00-0.50) 04/06/23 05:28 Baso # (Auto) 0.04 K/uL (0.00-0.20) 04/06/23 05:28 Immature Gran # (Auto) 0.03 K/uL (0.01-0.20) 04/06/23 05:28 ESR 42 mm/hr (0-20) H 04/03/23 01:26 APTT 36 Seconds (21-31) H 04/03/23 01:25 PTT Ratio 1.3 04/03/23 01:25 Sodium 134 mmol/L (136-145) L 04/06/23 05:28 Potassium 4.0 mmol/L (3.5-5.1) 04/06/23 05:28 Chloride 102 mmol/L (98-107) 04/06/23 05:28 Carbon Dioxide 24 mmol/L (21-32) 04/06/23 05:28 Anion Gap 8 (3-11) 04/06/23 05:28 BUN 36 mg/dl (6-23) H 04/06/23 05:28 Creatinine 1.00 mg/dl (0.6-1.4) 04/06/23 05:28 Est Cr Clr Drug Dosing 62.2 ml/min 04/06/23 05:28 Est GFR ( Amer) 80.9 ml/min 04/06/23 05:28 Est GFR (Non-Af Amer) 69.8 ml/min 04/06/23 05:28 BUN/Creatinine Ratio 36.0 (10-20) H 04/06/23 05:28 Glucose 146 mg/dl (70-99(Fasting)) H 04/06/23 05:28 POC Glucose 157 mg/dl (70-99) H 04/06/23 08:08 Estimat Average Glucose 189 mg/dl 04/03/23 10:09 Hemoglobin A1c 8.2 % (4.5-5.6) H 04/03/23 10:09 Osmolality 296 mOsm/kg (280-300) 04/03/23 01:25 Lactate 1.8 mmol/L (0.4-2.0) 04/03/23 04:03 Calcium 9.1 mg/dl (8.6-10.3) 04/06/23 05:28 Magnesium 1.8 mg/dl (1.7-2.4) 04/04/23 05:19 Total Bilirubin 2.2 mg/dl (0.2-1.0) H 04/03/23 01:26 AST 14 U/L (13-39) 04/03/23 01:26 ALT 17 U/L (7-52) 04/03/23 01:26 Alkaline Phosphatase 73 U/L (34-104) 04/03/23 01:26 Total Creatine Kinase 90 U/L (30-223) 04/03/23 05:08 Troponin I High Sens 16.8 pg/ml (0-20) 04/03/23 01:26 C-Reactive Protein 20.00 mg/dl (0-0.5) H 04/03/23 01:26 B-Natriuretic Peptide 482 pg/ml (0-100) H 04/03/23 04:18 Total Protein 7.1 gm/dl (6.0-8.3) 04/03/23 01:26 Albumin 3.8 gm/dl (3.4-5.0) 04/03/23 01:26 Globulin 3.3 gm/dl (2.5-4.0) 04/03/23 01: Albumin/Globulin Ratio 1.2 (0.9-2) 04/03/23 01: Procalcitonin 0.29 ng/ml (0-0.5) 04/03/23 01:25 TSH 1.235 uIu/ml (0.300-4.500) 04/03/23 01:26 Urine Color [place] 04/03/23 02:22 Urine Appearance Cloudy (Clear) A 04/03/23 02:22 Urine pH 5.0 (4.5-7.5) 04/03/23 02:22 Ur Specific [place] 1.025 (1.000-1.030) 04/03/23 02:22 Urine Protein Trace (Negative) H 04/03/23 02:22 Urine Glucose (UA) Negative (Negative) 04/03/23 02:22 Urine Ketones Trace (Negative) H 04/03/23 02:22 Urine Blood Negative (Negative) 04/03/23 02:22 Urine Nitrite Negative (Negative) 04/03/23 02:22 Urine Bilirubin Negative (Negative) 04/03/23 02:22 Urine Urobilinogen Negative (Negative) 04/03/23 02:22 Ur Leukocyte Esterase Negative (Negative) 04/03/23 02:22 Urine WBC (Auto) 1-5 /hpf (0-5) 04/03/23 02:22 Urine RBC (Auto) 0-4 /hpf (0-4) 04/03/23 02:22 U Hyaline Cast (Auto) 0 /lpf (0-5) 04/03/23 02:22 U Epithel Cells (Auto) 20-30 /lpf (0-5) H 04/03/23 02:22 Urine Bacteria (Auto) 1+ (Negative) H 04/03/23 02:22 Urine Mucus Present (None Prsent) A 04/03/23 02:22 Urine Osmolality 763 mOsm/kg (500-800) 04/03/23 02:22 Ur Random Sodium 24 mmol/L 04/03/23 02:22 Fld Lyme DNA (PCR) Not Detected (Not Detected) 04/03/23 04:00 Fluid Comment 04/03/23 19:00 Synovial Source Knee 04/03/23 19:00 Synovial Color Red 04/03/23 19:00 Synovial Appearance Turbid 04/03/23 19:00 Synovial WBC (Auto) 91725 /ul (0-200) H 04/03/23 19:00 Synovial RBC (Auto) 636343 /uL 04/03/23 19:00 Synovial Polynuclear % 86.3 % 04/03/23 19:00 Synovial Mononuclear % 13.7 % 04/03/23 19:00 Synovial Crystals 04/03/23 19:00 Lyme Specimen Source SYNOVIAL FLUID 04/03/23 04:00 Lyme Disease IgG Ab Negative (Negative) 04/03/23 01:25 Lyme Disease IgM Ab Negative (Negative) 04/03/23 01:25 Lyme DNA Comment see note 04/03/23 04:00 Impressions Knee X-Ray 04/03/23 00:09 LEFT KNEE 3 VIEWS CLINICAL HISTORY: Atraumatic left knee pain. FINDINGS: AP, crosstable lateral, and sunrise views of the left knee are ob tained. No prior studies are available for comparison at the time of dictation. The skeletal structures are osteopenic. No fracture is seen. There is moderate tricompartmental degenerative joint space narrowing, greatest at the patellofemoral articulation. There are marginal osteophytes and patellar enthesophytes. There is chondrocalcinosis of the medial and lateral compartments. There is a large joint effusion which contains calcific debris. Soft tissue edema is seen around the knee. There is atherosclerotic calcification of the popliteal artery. IMPRESSION: 1. Soft tissue swelling with no acute fracture identified. 2. Osteopenia with degenerative change and chondrocalcinosis as above. 3. Large joint effusion which contains calcific debris. Electronically signed by: Raudel Jackson M.D. 04/03/2023 8:43 AM Chest X-Ray 04/03/23 01:12 SINGLE VIEW CHEST CLINICAL HISTORY: Generalized weakness. FINDINGS: An AP, portable, upright chest radiograph is compared to chest x-ray and chest CT dated 02/06/2021. The examination is degraded by portable technique and patient rotation. The heart is enlarged and noting atherosclerotic calcification of the thoracic aorta. The pulmonary vasculature is noncongested. Chronic interstitial thickening is similar to previous. There is bibasilar scarring/atelectasis. The lungs and pleural spaces are otherwise clear. No pneumothorax is seen. The skeletal structures are osteopenic. The bony thorax is grossly intact. IMPRESSION: Cardiomegaly with no acute cardiopulmonary abnormality identified. ACT 112: Negative or not required by law. Electronically signed by: Raudel Jackson M.D. 04/03/2023 8:50 AM Venous Doppler Study 04/03/23 02:52 LEFT LOWER EXTREMITY VENOUS DOPPLER HISTORY: Left knee swelling. eval or dvt COMPARISON STUDY: None. FINDINGS: There is normal compressibility, flow, and augmentation within the left lower extremity deep venous system. IMPRESSION: No DVT within the left lower extremity. ACT 112: Negative or not required by law. Electronically signed by: Edward Phoenix M.D. 04/03/2023 6:40 AM
--- NOTE | 2023-04-06 13:18 | Hospitalist Progress Note ---
Date of Service April 06, 2023 Assessment & Plan (1) Septic arthritis: Plan: 82-year-old male with PMH of chronic systolic heart failure secondary to ischemic cardiomyopathy [EF 25%, TTE 2020], CAD, HTN, HLD, CVA, T2DM diet- controlled, chronic anemia [baseline hemoglobin of 13], BPH, skin cancer, past tobacco abuse presents to the ED with 2-day history of achy left hip pain which later moved to left knee. No recollection of recent trauma. Left knee pain was worse with ambulation. Denied fever at presentation. He is being managed for the following: Left septic arthritis, ruled out Pseudogout Patient presented with left knee pain. Admitting left knee x-ray with large joint effusion. LLE venous Doppler negative for DVT. Significant leukocytosis noted in sign of infection. s/p Left Knee Arthroscopic Incision and Drainage on 04/03/2023 Intraoperative culture and Gram stain negative Blood cultureno growth Discussed with infectious disease and orthopedics; less likely septic arthritis as culture and Gram stain are negative. Recommended to stop antibiotic and observe. Pain control Aspirin and Eliquis resumed. Continue PT OT Other chronic medical conditions: Continue with/resume home meds as and when able Atrial fibrillation- rate controlled, hold Eliquis continue metoprolol Chronic systolic heart failure secondary to ischemic cardiomyopathy [EF 25%, TTE 2020]: No pitting edema but concern of congestion on x-ray. Monitor. HTN: On lisinopril. Spironolactone on hold. HLD: continue statin T2DM: Sliding scale insulin while in hospital. A1c of 7.7% December 2022 BPH: Stable on regimen Past tobacco abuse Dispositioncontinue to monitor off antibiotics as per infectious disease recommendation. Possible DC in a.m. if clinically stable. Time spent evaluating patient, direct bedside care, chart review, placing orders, interpretation of diagnostic studies, discussion with consultants, patient, and family members, as well as other required patient management activities is 55 minutes Please note the above document was generated using voice recognition software. It may contain grammatical, syntax or spelling errors. Any formal questions or concerns about the content, text or information contained within the body of this dictation should be directly addressed to the provider for clarification Admission and Anticipated Discharge Date Admission Date: April 03, 2023 Physical Exam Physical Exam: Constitutional: Alert oriented x 3; not in distress Respiratory: normal respiratory effort, lungs clear to auscultation, no wheeze, rales, rhonchi. Normal insp/exp effort, no accessory muscle use Cardiovascular: RRR, no murmur, no edema Vessels: no JVD or carotid bruit Chest: normal inspection of chest Abdomen: normal bowel sounds, soft, nontender, no hepatosplenomegaly Musculoskeletal: Left knee bandaged with serosanguineous in the drain Skin: no rashes, warm and dry normal turgor Neurologic: PERRL, EOMI, accommodation nl, no face palsy, no dysarthria CN's II- XI intact bilaterally and moves all extremities Psychiatric: A+Ox3, euthymic affect Results & Data Results & Data Vital Signs (Past 12 Hours) Vital Signs Temp Pulse Pulse Pulse Pulse Resp BP 04/06/23 11:26 36.5 C 99 H 92 H 85 16 103/64 04/06/23 11:25 36.5 C 92 H 16 04/06/23 07:58 36.5 C 92 H 18 04/06/23 07:24 103 H 04/06/23 03:05 36.9 C 85 16 BP Pulse Ox O2 Del Method 04/06/23 11:26 123/73 95 04/06/23 11:25 123/73 95 Room Air 04/06/23 07:58 108/66 93 Room Air 04/06/23 07:24 04/06/23 03:05 99/51 L 94 Room Air
--- NOTE | 2023-04-06 13:47 | Discharge Summary ---
Date of Service April 06, 2023 Admission HPI Per Admitting Provider History obtained from patient and records. Medical history significant for chronic systolic heart failure secondary to ischemic cardiomyopathy (EF 25%, TTE 2020), CAD, hypertension, hyperlipidemia, history of CVA, DM2 diet-controlled, chronic anemia (baseline hemoglobin of 13), BPH, skin cancer as per records, past tobacco abuse. Last confinement February 2021 for new onset A-fib, patient discharged on Eliquis. 2 days ago, patient noted achy left hip pain which later moved to left knee. No recollection of recent trauma. Painful left knee swelling noted, worse on ambulation. No fever, no chills, no chest pain, no unusual SOB. No previous episodes. Purulent fluid obtained on left knee arthrocentesis at the ER. IV vancomycin subsequently administered. 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 Admission Exam Per Admitting Provider GENERAL: Slightly uncomfortable, pleasant, no respiratory distress SKIN: Pallor, warm HEENT: Alopecia, pale palpebral conjunctivae, no ptosis, dry buccal mucosa NECK : Supple, no tenderness CHEST : Decreased breath sounds, no tenderness HEART : Irregular, no obvious murmurs ABDOMEN: Some distention, nontender EXTREMITIES : Bandage over left knee, no other conspicuous deformities noted NEUROLOGIC : Coherent, no facial asymmetry, no other gross focality Principal Diagnosis Pseudogout Discharge Exam Constitutional: Alert oriented x 3; not in distress Respiratory: normal respiratory effort, lungs clear to auscultation, no wheeze, rales, rhonchi. Normal insp/exp effort, no accessory muscle use Cardiovascular: RRR, no murmur, no edema Vessels: no JVD or carotid bruit Chest: normal inspection of chest Abdomen: normal bowel sounds, soft, nontender, no hepatosplenomegaly Musculoskeletal: Left knee bandaged . Clean dry and intact Skin: no rashes, warm and dry normal turgor Neurologic: PERRL, EOMI, accommodation nl, no face palsy, no dysarthria CN's II- XI intact bilaterally and moves all extremities Psychiatric: A+Ox3, euthymic affect Discharge Data Allergies Allergy/AdvReac Type Severity Reaction Status Date / Time Penicillins Allergy Severe TONGUE Verified 04/03/23 02:23 SWELLING amoxicillin [From Augmentin] AdvReac Unknown Vomiting Verified 04/03/23 02:23 clavulanic acid AdvReac Unknown Vomiting Verified 04/03/23 02:23 [From Augmentin] Consultations 04/03/23 06:13 Consult Orthopedic Surgery Routine 04/03/23 09:27 Consult Infectious Diseases Routine Procedures Performed Operation Date: 04/03/23 12:45 Actual Procedures p Left Knee Arthroscopic Incison and Drainage, Extensive Debridement(Left) - Terrence Plata MD Ordered Studies 04/03/23 02:52 US venous duplex leg [US venous doppler LE LT] Stat Hospital Course (1) Septic arthritis: ear-old male with PMH of chronic systolic heart failure secondary to ischemic c ardiomyopathy [EF 25%, TTE 2020], CAD, HTN, HLD, CVA, T2DM diet-controlled, chronic anemia [baseline hemoglobin of 13], BPH, skin cancer, past tobacco abuse presents to the ED with 2-day history of achy left hip pain which later moved to left knee. No recollection of recent trauma. Left knee pain was worse with ambulation. Denied fever at presentation. He is being managed for the following: Left septic arthritis, ruled out Pseudogout Patient presented with left knee pain. Admitting left knee x-ray with large joint effusion. LLE venous Doppler negative for DVT. Significant leukocytosis noted in sign of infection. s/p Left Knee Arthroscopic Incision and Drainage on 04/03/2023 Intraoperative culture and Gram stain negative Blood cultureno growth Distress present; calcium pyrophosphate dihydrate crystal Discussed with infectious disease and orthopedics; less likely septic arthritis as culture as Gram stain are negative. Recommended to stop antibiotic and observe. Patient was afebrile; vital stable at the time of the discharge. Patient to follow-up with PCP and orthopedic after discharge. Please note the above document was generated using voice recognition software. It may contain grammatical, syntax or spelling errors. Any formal questions or concerns about the content, text or information contained within the body of this dictation should be directly addressed to the provider for clarification Total Time Total Time Spent Total Time Spent (In Minutes): 36 Total Time Includes: Examination of the Patient, Discharge Planning, Medication Reconciliation, Communication With Other Providers and Other Discharge Plan Discharge Items Patient Disposition: Home - Self-Care Reason For Visit: SEPSIS Discharge Diagnosis: Pseudogout status post left knee arthroscopic incision and drainage on April 03, 2023 Activity: Resume your previous activity Non-emergency contact: Surgeon Call non-emergency contact if: you have any medication questions, your pain is not controlled, your temperature is above 101, your wound has increased redness and your wound has increased drainage Follow-up/Referrals: Adam Siddiqi MD [Primary Care Provider] - (Date & Time 04/10/2023 11:00 AM Provider Agustina Lema MD Department General Internal Medicine [facility] ) Ruth France PA-C [Physician Air Brake Tester] - 04/16/23 9:00 am Terrence Plata MD [Surgeon] - 04/10/23 9:00 am Diet: Regular Addtl Attending Provider Instructions: You were admitted to the hospital with left knee pain. You underwent incision and drainage by Dr. Plata on April 03, 2023. The initial suspicion was for infection. However, the cultures result did not show any organism so far. You are found to have calcium crystals in the joint fluid which was thought to be the cause for the pain and swelling. Infectious disease recommended that you should be observed off antibiotics. If you start to experience increased pain, swelling of the knee; please seek medical attention. An appointment with your primary care doctor has been set up. Please follow-up for the appointment. Please follow-up with orthopedics on April 16, 2023 at 9 AM. For pain control, you can take [id number] Tylenol every 6 hours as needed up to 3 g/day. Addtl Environmental Planner Provider Instructions: Orthopedic Instructions: - Weight bear as tolerated left lower extremity - Ice to left knee as needed for pain/swelling - Elevate left leg above heart as needed for pain/swelling. - Allowed for full range of motion left knee as tolerated - Use walker to assist with ambulation - Keep incisions covered with band-aids or light dressings. - Okay to shower, re-dress as needed. Keep covered until follow up appointment. - Call [phone] with any increased pain, swelling, drainage or need to reschedule appointment. - Follow up as scheduled. Pending Studies at Discharge: No Stand-Alone Forms: My [employer] Social, Smoking Cessation Medications and DC Order Prescriptions: Continued atorvastatin 80 mg tablet 80 mg PO QAM finasteride 5 mg tablet 5 mg PO QAM tamsulosin 0.4 mg capsule 0.4 mg PO HS aspirin 81 mg Tablet,Delayed Release (Dr/Ec) 81 mg PO QAM metoprolol succinate 50 mg tablet extended release 24 hr 50 mg PO QAM spironolactone 25 mg tablet 12.5 mg PO QAM Rx Instructions: Take 12.5 mg daily. lisinopril 2.5 mg tablet 2.5 mg PO QAM Rx Instructions: Take 2.5 mg daily. Eliquis 5 mg Tablet 5 mg PO BID Qty: 60 0RF furosemide 20 mg Tablet 20 mg PO QAM Qty: 30 0RF Discharge Orders: Discharge Order (Routine); Ordered 04/06/23 Ordered By: Sal Rossi/Other Patient Handouts: Managing Type 2 Diabetes Admission Data Admit Date/Time: 04/03/23 05:28 Attending Provider: Sal Ashraf Admit Provider: Evelio Cui Primary Care Provider: Adam Siddiqi Other Providers: Terrence Plata; Live Flanagan; Elias Hoffman; Luis Alberto Finch I.; Sushant Anders II; Leanna Wolf; Mian Ray; Aarno Munson; Ale Ambrose; Wilder Claudio Other Interventions: Discharge Summary Assessment (RN) Last Done: 04/06/23 11:26
== END 2023-04-06 12:26 | disposition home or self-care (01) | DRG 854 ==
LOC: ED 23:40 → SUATTDRO 04-03 05:28 → EDINP 04-03 05:28 → 2N 04-03 06:08

== ENCOUNTER 2023-04-21 22:27 | Inpatient (IN) ==
--- OUTSIDE RECORDS SUMMARY | 2023-04-21 22:32 | External Medical Summary | Summary of Care ---
Author Name Unknown Organization [facility] Address [address] [place] [address] Phone [phone] Care Team Providers Care Promotions Representative Name Role Phone Adam Siddiqi MD Primary Care Provider + Reason for Visit * Reason Onset Date Comments Hospital Follow-Up Patient prese nts for a hospital follow up. Patient was discharged on 04/05/2023. Patient states he is doing better and denied any new concerns. Hospital Follow-Up 04/10/2023 Encounter Details Date Type Department Care Team (Late st Contact Info) Description 04/10/2023 11:00 AM EST Office Visit General Internal Medicine State Ivis Arredondo [address] [place] [address] Agustina Lema MD 200 [facility] [place] [address] Pseudogout of knee, left*; Hospital discharge follow-up; Heart failure, systolic, due to CAD (HCC); HTN, goal below 140/90; Ischemic cardiomyopathy; Mixed hyperlipidemia; Old myocardial infarct; Paroxysmal atrial fibrillation ([facility]); Personal history of skin cancer; Spinal stenosis of lumbar region with neurogenic claudication; Type 2 diabetes mellitus with hemoglobin A1c goal of less than 8.0% ([facility]); Hypertensive heart disease with chronic systolic congestive heart failure ([facility]); HNP (herniated nucleus pulposus), lumbar Allergies Active Allergy Reactions Criticality Noted Date Comments Amoxicillin-Pot Clavulanate Nausea/vomiting 12/31/2018 Penicillins Other (Please comment) High 04/18/2006 "tongue gets bubbly" Last had it ampicillin 1994 documented as of this encounter (statuses as of 04/21/2023) Medications Medication Sig Dispensed Refills Start Date End Date Status ASPIRIN 81 MG PO TABSIndications:Mixe d dyslipidemia one tab by mouth daily 34 0 04/18/2006 Active Acetaminophen 500 MG Oral Tablet (Tylenol)Indications :Acute left-sided low back pain without sciatica Take 2 Tablets by mouth every 8 hours as needed for Pain, Severe. 100 Tab 0 11/24/2020 Active Spironolactone 25 MG Oral Tablet (Aldactone)Indicatio ns:HTN, goal below 140/90 Take 0.5 Tablets by mouth in the morning. 30 Tablet 11 05/02/2022 Active Furosemide 20 MG Oral Tablet (Lasix)Indications:H [...] the morning. 90 Tablet 1 12/18/2022 Active Metoprolol Succinate ER 50 MG Oral Tablet Extended Release 24 Hour (toPROL XL)Indications:Old myocardial infarct,Ischemic cardiomyopathy,Heart failure, systolic, due to CAD (HCC) TAKE 1 TABLET BY MOUTH EVERY MORNING 90 Tablet 1 01/07/2023 Active ZyrTEC Allergy 10 MG Oral Capsule (Cetirizine HCl) Take 1 Capsule by mouth in the morning. 0 Active Atorvastatin Calcium 80 MG Oral Tablet (Lipitor) TAKE 1 TABLET BY MOUTH EVERY MORNING 90 Tablet 2 04/09/2023 Active predniSONE 20 MG Oral Tablet (Deltasone)Indicatio ns:Pseudogout of knee, left Take 2 Tablets by mouth in the morning for 5 days. 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 Never true 04/19/19 24 Within the past 12 months, t he food you bought just didn't last and you didn't have money to get more. Never true 04/19/2023 Sex and Gender Information Value Date Recorded Sex Assigned at Male 06/20/2018 9:42 AM EDT Gender Identity Male 06/20/2018 9:42 AM EDT Sexual Orientation Straight 06/20/2018 9: 42 AM EDT Job Start Date Occupation Industry Not on file Not on file Not on file documented as of this encounter Last Filed Vital Signs Vital Sign Reading Time Taken Comments Blood Pressure 124/68 04/10/2023 10:51 AM EST Pulse 85 04/10/2023 10:51 AM EST Temperature 35.9 C (96.7 F) 04/10/2023 10:[address] Respiratory Rate - - Oxygen Saturation - - Inhaled Oxygen Concentration - - Weight 87.3 kg (192 lb 8 oz) 04/10/2023 10:51 AM EST Height 175.3 cm (5' 9") 04/10/2023 10:51 AM EST Body Mass Index 28.43 04/10/2023 10:51 AM EST documented in this encounter Progress Notes * Agustina Lema MD - 04/10/2023 10:54 AM EST SUBJECTIVE: Kiko Mckeon is a 82 year old male. Chief Complaint Patient presents with Hospital Follow-Up Patient presents for a hospital follow up. Patient was discharged on 04/05/2023. Patient states he isdoing better and denied any new concerns. HPI: 82 year old YOmale with PMH as listed below presents here for hospital follow up. Pt was having worsening left knee pain and swelling for few days , went to Er for eval . Presented to hospital on 04/03/23 . She was found to have leucocytosis with swollen, warm and tender knee with x-ray showing significant effusion . She was then admitted and treated with IV antibiotic for possible sceptic knees. Labs were overall normal except leucocytosis and high sed rate and CRP and ImagingCT knee with suggestive for septic knee . She was seen by ortho and took her for arthroscopic I/d which showed leucocytosis but grain stain negative but cystal deposit suggestive for pseudogout . Blood and joint fluid culture both cmae out negative . Rest of the hospital course unremarkable . He was sent home on 04/05/23 on home medications . Since discharge feeling same . Hospital records reviewed and updated. The patient's medication list was reviewed and updated as needed. Current issues now- -left knee pain and swelling some better but still sore and hard to put pressure on it . No h/o gout and normal uric acid . No alcohol Patient Active Problem List Diagnosis Code Old myocardial infarct I25.2 Ischemic cardiomyopathy I25.5 Mixed hyperlipidemia E78.2 HTN, goal below 140/90 I10 Heart failure, systolic, due to CAD ([facility]) I50.20, I25.10 Personal history of skin cancer Z85.828 Spinal stenosis of lumbar region with neurogenic claudication M48.062 HNP (herniated nucleus pulposus), lumbar M51.26 Hypertensive heart disease with chronic systolic congestive heart failure ([facility]) I11.0, I50.22 Type 2 diabetes mellitus with hemoglobin A1c goal of less than 8.0% ([facility]) E11.9 Paroxysmal atrial fibrillation ([facility]) I48.0 Bilateral exudative age-related macular degeneration ([facility]) H35.3230 Exudative age-related macular degeneration of right eye with active choroidal neovascularization ([facility]) H35.3211 BPH with obstruction/lower urinary tract symptoms [...] mouth in the morning. 90 Tablet 1 Metoprolol Succinate ER 50 MG Oral Tablet Extended Release 24 Hour (toPROL XL) TAKE 1 TABLET BY MOUTH EVERY MORNING 90 Tablet 1 Atorvastatin Calcium 80 MG Oral Tablet (Lipitor) TAKE 1 TABLET BY MOUTH EVERY MORNING 90 Tablet 2 ZyrTEC Allergy 10 MG Oral Capsule (Cetirizine HCl) Take 1 Capsule by mouth in the morning. Current Facility-Administered Medications Medication Dose Route Frequency Provider Last Rate Last Admin Aflibercept (Eylea) intraviteal prefilled syringe 2 mg 2 mg Intravitreal PRN Gregor Solorzano T,DO 2 mg at 03/12/23 0901 ROPivacaine (Naropin) inj 1.5 mg 1.5 mg Injection PRN Gregor Solorzano T, DO 1.5 mg at 03/12/23 0901 Review of patient's allergies indicates: Allergen Reactions Penicillins Other (Please comment) "tongue gets bubbly" Last had it ampicillin 1994 Augmentin [Amoxicillin-Pot Clavulanate] Nausea/vomiting 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 Diverticulosis of colon 03/28/2005 Hemorrhoids 03/28/2005 History of heart attack History of stroke Other malignant neoplasm of other specified sites of skin basal cell carcinoma Type 2 diabetes mellitus with hemoglobin A1c goal of less than 8.0% ([facility]) 11/05/2020 Past Surgical History: Procedure Laterality Date COLONOSCOPY 03/05/2004 normal. COLONOSCOPY 09/13/2000 adenomatous polyps, repeat in3-5 years COLONOSCOPY 03/28/2005 tubular adenoma, repeat in 3-5 years. COLONOSCOPY THRU STOMA, W/BIOPSY 01/17/2010 adenomatous polyp, repeat in 5 years COLONOSCOPY, DIAGNOSTIC (RECTUM) 07/07/2015 adenomatous & hyperplastic polyps, repeat 5 yrs/[facility] COLONOSCOPY, DIAGNOSTIC (RECTUM) 06/02/2021 benign adenomatous polyp / [facility] INFORMATION s/p BCC excision. INFORMATION pyloric stenosis surgery at a baby INJECT DX/THER SUBSTANCE INTERLAMINAR LUMBAR/SACRAL W IMAGE GUIDE 06/20/2018 INJECTION SPINE LUMBAR OR SACRAL performed by Rahul Easton DO at OR [facility] INJECTION OF EYE DRUG Right 09/29/2021 # [...] Right 01/11/2023 #2 Eylea OD; Dr Solorzano INJECTION OF EYE DRUG Right 03/12/2023 # 2 Eylea OD, Dr. Solorzano OTHER (INFORMATION) ACT 112 SIGNED -- OPH (09-29-2021) OTHER (INFORMATION) Bilateral AVASTIN OU CONSENT DR. SOLORZANO/WOJCIECH EXP. 09/29/22 OTHER (INFORMATION) Bilateral EYLEA OU CONSENT DR. SOLORZANO/WOJCIECH EXP. 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 Tobacco Use Smoking status: Former Years: 15 Types: Cigarettes Quit date: 03/05/1994 Years since quittin.1 Smokeless tobacco: Never Vaping Use Vaping Use: Never used Substance and Sexual Activity Alcohol use: Yes Comment: rare Drug use: No Social Determinants of Health Food Insecurity: No Food Insecurity (06/05/2022) Hunger Vital Sign Worried About Running Out of Food in the Last Year: Never true Ran Out of Food in the Last Year: Never true Family History Problem Relation Age of Onset [...] family history Hypertension No significant family history REVIEW OF SYSTEMS: All 10 systems reviewed and negative except mentioned in HPI OBJECTIVE: BP 124/68 | Pulse 85 | Temp 35.9 C (96.7 F) (Tympanic) | Ht 1.753 m (5' 9") | Wt 87.3 kg (192 lb 8 oz) | BMI 28.43 kg/m | BSA 2.06 m PHYSICAL EXAM: General: alert, healthy, and no distress Head: Normocephalic, No masses, lesions, tenderness or abnormalities Oropharynx: no exudate, no erythema, lips, buccal mucosa, and tongue normal, and mucous membranes are moist Neck: supple, no adenopathy, no bruits, thyroid normal size, non-tender, without nodularity Heart: regular rate & rhythm, no murmur, and no gallops Lungs: chest symmetric with normal AP diameter, no chest deformities noted, no chest wall tenderness, lungs clear to auscultation Abdomen: abdomen soft, non-tender, normal bowel sounds, and no masses or organomegaly Extremities: less than 2 second capillary refill, left knee slightly subtle warm , tender and swollen with effusion ASSESSMENT AND PLAN Pseudogout of knee, left (Primary) - DISCH MED RECON CUR MED LIS - predniSONE 20 MG Oral Tablet (Deltasone); Take 2 Tablets by mouth in the morning for 5 days. Ice , elevation Suspect pseudogout with less suspicion for septic knee Hospital discharge follow-up - DISCH MED RECON CUR MED LIS Heart failure, systolic, due to CAD (HCC) HTN, goal below 140/90 Ischemic cardiomyopathy Mixed hyperlipidemia Old myocardial infarct Paroxysmal atrial fibrillation (HCC) Personal history of skin cancer Spinal stenosis of lumbar region with neurogenic claudication Type 2 diabetes mellitus with hemoglobin A1c goal of less than 8.0% (HCC) Hypertensive heart disease with chronic systolic congestive heart failure (HCC) HNP (herniated nucleus pulposus), lumbar Treatment and plan was discussed with patient and was given opportunity to ask questions which wereanswered appropriately. Patient verbalizing understanding. This note was prepared with the help of fluency and if there is any mis-spelled words , sentences or something which doesn't represent the content of the subject that could be technical error and please refer to the author for clarification. Agustina Lema MD 10:56 AM 04/10/2023 documented in this encounter Nursing Notes * Lily Klein MED ASSIST - 04/10/2023 10:55 AM EST Chief Complaint Patient presents with Hospital Follow-Up Patient presents for a hospital follow up. Patient was discharged on 04/05/2023. Patient states he isdoing better and denied any new concerns. documented in this encounter Plan of Treatment Upcoming Encounters Date Type Department Care Team (Late st Contact Info) Description 05/15/2023 8:45 AM EDT Office Visit Ophthalmology, [address] [place] [address] Gregor Solorzano DO [address] [place] [address] 07/03/2023 1:00 PM EDT Office Visit General Internal Medicine [facility] 200 [facility] [place] [address] Adam Siddiqi MD 200 [facility] [place] [address] 09/03/2023 8:00 AM EDT Office Visit Cardiology, [facility] [address] [place] [address] Stephanie aGllo PA-C [address] [place] [address] Health Maintenance Due Date Last Done Comments COVID-19 Vaccine (2022- season) 2022 05/11/2020, 04/13/2020 Depression Screening 04/18/2023 04/18/2022 GFR 06/06/2023 06/05/2022, 03/05, 11/28/2021, Additional history exists HbA1c 06/20/2023 12/19/2022, 04/05/2022, 11/28/2021, Additional history exists Diabetic Eye Exam 09/12/2023 09/11/2022, , 09/11/2022, Additional history exists Albumin/Creatinine Ratio 12/20/202312/19/2 023, [...] this encounter Medical Devices Implanted Type Area Associate Designer Device Identifier Shelf Expiration Date Model / Serial / Lot Lens 21.0 Mx60 - [id number] - [id number] Implanted:Qty: 1 on 07/19/2015 by Florencio Roblero DO at OR [facility] Left: Eye [employer] : SURGICAL 08/02/2017 MX60-21.0 / [id number] / [id number] Lens 22.0 Mx60 - [id number] - [id number] Implanted:Qty: 1 on 08/23/2015 by Florencio Roblero DO at OR [facility] Right: Eye [employer]OM[employer] : SURGICAL 01/02/2018 MX60-22.0 / [id number] / [id number] documented as of this encounter Visit Diagnoses Diagnosis Pseudogout of knee, left- Primary Hospital discharge follow-up Other follow-up examination Heart failure, systolic, due to CAD (HCC) Unspecified systolic heart failure HTN, goal below 140/90 Unspecified essential hypertension Ischemic cardiomyopathy Other specified forms of chronic ischemic heart disease Mixed hyperlipidemia Old myocardial infarct Old myocardial infarction Paroxysmal atrial fibrillation (HCC) Atrial fibrillation Personal history of skin cancer Personal history of other malignant neoplasm of skin Spinal stenosis of lumbar region with neurogenic claudication Spinal stenosis, lumbar region, with neurogenic claudication Type 2 diabetes mellitus with hemoglobin A1c goal of less than 8.0% (HCC) Hypertensive heart disease with chronic systolic congestive heart failure (HCC) HNP (herniated nucleus pulposus), lumbar Displacement of lumbar intervertebral disc without myelopathy documented in this encounter Advance Directives Latest [...] and were consensually agreed upon. Care Teams Promotions Representative Relationship Specialty Start Date End Date Adam Siddiqi MD 200 [place] [address] PCP - General Internal Medicine 08/15/20 documented as of this encounter
--- OUTSIDE RECORDS SUMMARY | 2023-04-21 22:33 | External Medical Summary | Summary of Care ---
Author Name Unknown Organization [facility] Address [address] [place] [address] Phone [phone] Care Team Providers Care Refinery Operator Name Role Phone Adam Gardiner MD Primary Care Provider + Reason for Visit * Reason Comments eRx-Medication Refill Encounter Details Date Type Department Care Team (Late st Contact Info) Description 04/07/2023 [facility] 200 [facility] [place] [address] Adam Gardiner MD 200 [facility] [place] [address] Allergies Active Allergy Reactions Criticality Noted Date Comments Amoxicillin-Pot Clavulanate Nausea/vomiting 12/31/2018 Penicillins Other (Please comment) High 04/18/2006 "tongue gets bubbly" Last had it ampicillin 1995 documented as of this encounter (statuses as of 04/09/2023) Medications Medication Sig Dispensed Refills Start Date [...] (Lasix)Indications :Heart failure, systolic, due to CAD (HCC) Take [...] cardiomyopathy,Hea rt failure, systolic, due to CAD (HCC) TAKE 1 TABLET BY MOUTH EVERY MORNING 90 Tablet 1 01/07/2023 Active ZyrTEC Allergy 10 MG Oral Capsule (Cetirizine HCl) Take 1 Capsule by mouth in the morning. 0 Active Atorvastatin Calcium 80 MG Oral Tablet (Lipitor) TAKE 1 TABLET BY MOUTH EVERY MORNING 90 Tablet 2 04/09/2023 Active Atorvastatin Calcium 80 MG Oral Tablet (Lipitor) Take 1 Tablet by mouth in the morning. In the morning.. 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 [...] as of this encounter (statuses as of 04/09/2023) Resolved Problems Problem Noted Date Diagnosed Date [...] as of this encounter (statuses as of 04/09/2023) Immunizations Name Administration Dates Next Due COVID-19 [...] encounter Miscellaneous Notes * Telephone Encounter - Sara Corral [facility] - 04/09/2023 10:17 AM EST Signed Prescriptions: Disp Refills Atorvastatin Calcium 80 MG Oral Tablet (Li*90 Tab*2 Sig: TAKE 1 TABLET BY MOUTH EVERY MORNINGAuthorizing Provider: ADAM GARDINER User: SARA CORRAL documented in this encounter Plan of Treatment Upcoming Encounters Date Type Department Care Team (Late st Contact Info) Description 04/10/2023 11:00 AM EST Office Visit General Internal Medicine [facility] [place] [address] [place] [address] Agustina Lema MD [address] [facility] [place] [address] 05/15/2023 8:45 AM EDT Office Visit Ophthalmology, [facility] 132 [facility] [place] [address] Gregor Solorzano, 132 [facility] [place] [address] 07/03/2023 1:00 PM EDT Office Visit General Internal Medicine [facility] 200 [facility] [place] [address] Adam Gardiner MD 200 [facility] [place] [address] 09/03/2023 8:00 AM EDT Office Visit Cardiology, [facility] [address] [place] [address] Stephanie Gallo PA-C [address] [place] [address] [place] [id number] Health Maintenance Due Date Last Done Comments Hepatitis B (1 of 3 - Risk 3-dose series) 2000 COVID-19 Vaccine ( - 2022- season) 2022 05/11/2020, 04/13/2020 Depression [...] this encounter Medical Devices Implanted Type Area Truck Shop Supervisor Device Identifier Shelf Expiration Date Model / Serial / Lot Lens 21.0 Mx60 - [id number] - [id number] Implanted:Qty: 1 on 07/19/2015 by Florencio Roblero DO at OR [facility] Left: Eye [employer] : SURGICAL 08/02/2017 MX60-21.0 / [id number] / [id number] Lens 22.0 Mx60 - [id number] - [id number] Implanted:Qty: 1 on 08/23/2015 by Florencio Roblero DO at OR [facility] Right: Eye [employer]OM[employer] : SURGICAL 01/02/2018 MX60-22.0 / [id number] / [id number] documented as of this encounter Advance Directives [...] and were consensually agreed upon. Care Teams Refinery Operator Relationship Specialty Start Date End Date Adam Gardiner MD 200 [facility] [place] [address] PCP - General Internal Medicine 08/15/20 documented as of this encounter
--- OUTSIDE RECORDS SUMMARY | 2023-04-21 22:33 | External Medical Summary | Continuity of Care Document ---
Author Name Unknown Organization [id number] Address [address] [place] [id number] Care Team Providers Care Tape Calender Name Role Phone Neeru Adam Chester Primary Care Physician [phone] [id number] Date[facility]s): 04/16/23 - 04/16/23 [facility] [address] [place] [address]A [facility] [address] Sports Medicine [address] [place] [address] Encounter Diagnosis Other specified crystal arthropathies, left knee(Discharge Diagnosis) - 04/16/23 Discharge Disposition: Home or Self Care Attending Physician: LIBBY France, Ruth Agarwal Referring Physician: MD Boni, Terrence Krause Allergies, Adverse Reactions, Alerts Substance Reaction Severity Status penicillins swelling tongue became rough Active Medications Aspir 81 Start: 04/16/23 8:46:00 EST Start Date: 04/16/23 Status: Ordered atorvastatin Start: 04/16/23 8:47:00 EST, 80 mg =, PO, Daily Start Date: 04/16/23 Status: Ordered Eliquis 5 mg oral tablet Start: 04/16/23 8:45:00 EST, 1 tab, PO, bid Start Date: 04/16/23 Status: Ordered finasteride 5 mg oral tablet Start: 04/16/23 8:46:00 EST, 1 tab, PO, Daily Start Date: 04/16/23 Status: Ordered furosemide Start: 04/16/23 8:46:00 EST, 20 mg =, PO, Daily Start Date: 04/16/23 Status: Ordered lisinopril 2.5 mg oral tablet Start: 04/16/23 8:46:00 EST, 1 tab, PO, Daily Start Date: 04/16/23 Status: Ordered metoprolol succinate (ER) Start: 04/16/23 8:46:00 EST, 50 mg =, PO, Daily Start Date: 04/16/23 Status: Ordered PreserVision AREDS Start: 04/16/23 8:47:00 EST, 2 daily Start Date: 04/16/23 Status: Ordered spironolactone Start: 04/16/23 8:45:00 EST, 2.5 mg =, PO, Daily Start Date: 04/16/23 Status: Ordered tamsulosin 0.4 mg oral capsule Start: 04/16/23 8:47:00 EST, 1 cap, PO, Daily Start Date: 04/16/23 Status: Ordered Mental Status 04/16/23 Barriers to Learning one year None evide nt Mandatory Health Literacy Documentation Yes Health Literacy Communication Barriers N ever Primary Language Jordanian Problem List Condition Confirmation Course Effective Dates Status Health St atus Informant Ankle injury 1 Confirmed Active Pseudogout Confirmed Active Heart disease Confirmed Active High cholesterol Confirmed Active 1left Diagnosis Diagnosis Type Effective Dates Health Status Cl inical Service Informant Other specified crystal arthropathies, left knee Discharge Diagnosis 04/16/23 Non-Specified Procedures Procedure Date Related Diagnosis Body Site Status I and D 1 04/03/23 Completed Squamous Cell Carcinoma Of Forehead 2013 Completed MULT.>Colonoscopy 2009 Complet ed Mohs surgery on Nose 2008 Comp leted Repair Broken Right Hand operation 1960 Completed Appendectomy 1952 Completed Pyloric Stenosis 1941 Complete d 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 Completed 1Left knee arthroscopic I & D Vital Signs Most recent to oldest [Reference Range]: 1 Height 174 cm (04/16/23 8:43 AM) Patient Weight 84 kg (04/16/23 8:43 AM) Body Mass Index 27.74 kg/m2 (04/16/23 8:43 AM) Social History Social History Type Response Smoking Status Never smoked cigaret angy Sex Male Patient Care team information Care Team Personnel Name: MD Siddiqi Timothy F Position: Referring DIRECT Member Role: Primary Care Provider Address: Address: [address] [place] [address] [place] Care Team Related Persons Name: KIRAN WINTERSH Address: home [address] [place], [place] [id number]
[2023-04-21 23:01] LABS: Basophils # (auto) 0.04 K/uL (0.00-0.20); Basophils % (auto) 0.4 %; Eosinophils # (auto) 0.26 K/uL (0.00-0.50); Eosinophils % (auto) 2.7 %; Hematocrit (blood only) 41.1 % (42.0-52.0); Hemoglobin 12.9 g/dl (14.0-18.0); Immature Granulocytes # (auto) 0.06 K/uL (0.01-0.20); Immature Granulocytes % (auto) 0.6 %; Lymphocytes # (auto) 2.25 K/uL (1.20-3.40); Lymphocytes % (auto) 23.1 %; Mean Corpuscular Hemoglobin 27.3 pg (25.0-34.0); Mean Corpuscular Hgb Conc 31.4 g/dL (32.0-36.0); Mean Corpuscular Volume 86.9 fL (80.0-100.0); Monocytes # (auto) 0.81 K/uL (0.11-0.59); Monocytes % (auto) 8.3 %; Neutrophils # (auto) 6.33 K/uL (1.40-6.50); Neutrophils % (auto) 64.9 %; Platelet Count 313 K/uL (130-400); RDW Coefficient of Variation 15.4 % (11.5-14.5); RDW Standard Deviation 49.1 fL (36.4-46.3); Red Blood Count 4.73 M/uL (4.70-6.10); White Blood Count 9.75 K/ul (4.8-10.8)
[2023-04-21 23:14] LABS: Albumin Globulin Ratio 1.2 (0.9-2); Albumin Level 3.6 gm/dl (3.4-5.0); BUN Creatinine Ratio 22.5 (10-20); Bilirubin,Total 0.8 mg/dl (0.2-1.0); Calcium 9.4 mg/dl (8.6-10.3); Creatinine Clr Calc Pharmacy 55.6 ml/min; Est GFR (African American) 71.3 ml/min; Est GFR (Non-African American) 61.5 ml/min; Globulin 2.9 gm/dl (2.5-4.0); Potassium 4.6 mmol/L (3.5-5.1); Total Protein 6.5 gm/dl (6.0-8.3)
[2023-04-21 23:20] LABS: Troponin I High Sensitivity 17.6 pg/ml (0-20)
--- NOTE | 2023-04-21 23:27 | Emergency Department Note ---
History of Present Illness General Chief complaint: Chest Pain Stated complaint: CHEST TIGHTNESS Time Seen by Provider: 04/21/23 22:45 History of Present Illness Maximum Pain Intensity: 3 This 82-year-old male on Eliquis presents ER complaining of chest pain and head pain for the past few hours. Nothing makes it better or worse. Patient was recently hospitalized for r/o septic knee which ended up being pseudogout. Patient denies fever, chills, abdominal pain, radiating pain, neck stiffness, flulike illness, numbness, tingling. No difference with activity with the symptoms. Home Medications Medication Instructions Recorded Confirmed Type atorvastatin 80 mg tablet 80 mg PO QAM 11/26/18 04/03/23 History aspirin 81 mg tablet,delayed 81 mg PO QAM 01/03/19 04/03/23 History release metoprolol succinate 50 mg 50 mg PO QAM 07/26/20 04/03/23 History tablet,extended release 24 hr apixaban 5 mg tablet (Eliquis) 5 mg PO BID #60 tabs 02/07/21 04/03/23 Rx furosemide 20 mg tablet 20 mg PO QAM #30 tabs 02/07/21 04/03/23 Rx lisinopril 2.5 mg tablet 2.5 mg PO QAM 05/30/21 04/03/23 History spironolactone 25 mg tablet 12.5 mg PO QAM 05/30/21 04/03/23 History finasteride 5 mg tablet 5 mg PO QAM 08/02/22 04/03/23 History tamsulosin 0.4 mg capsule 0.4 mg PO HS 08/02/22 04/03/23 History Allergies Allergy/AdvReac Type Severity Reaction Status Date / Time Penicillins Allergy Severe TONGUE Verified 04/03/23 02:23 SWELLING amoxicillin [From Augmentin] AdvReac Unknown Vomiting Verified 04/03/23 02:23 clavulanic acid AdvReac Unknown Vomiting Verified 04/03/23 02:23 [From Augmentin] Past Med/Surg History Medical History BPH with obstruction/lower urinary tract symptoms Degenerative disc disease Arthritis History of pyloric stenosis as a child Diabetes mellitus, type 2 NO MEDS History of skin cancer Transient ischemic attack (TIA) AROUND 2019? *NO PROBLEMS FROM EVENT HTN (hypertension) Systolic CHF FOLLOWS DR. LR>PT UNSURE OF CARDIAC HX Ischemic cardiomyopathy CAD (coronary artery disease) 1994-anterior wall CA, no intervention Dyslipidemia DM type 2 (diabetes mellitus, type 2) Surgical History History of colonoscopy History of repair of pyloric stenosis History of tooth extraction History of cardiac cath 1994 History of cataract surgery RT/LEFT History of appendectomy Family History Sister Multiple myeloma Brother Heart disease Other No family history of adverse response to anesthesia Social History Smoking Status: Former smoker Second Hand Exposure: Yes ( A CHILD); Do You Dip or Chew Tobacco: No; Hx Alcohol Use: No Hx Substance Use: No Preferred Language: Montserratian Communication Ability: Effective Pipeline Controller Required: No Beliefs That Will Affect Care: None marital status: Current Living Situation: Spouse Feels Safe at Home: Yes Assistive Devices: Glasses Review of Systems A total of 10 systems reviewed and were otherwise negative Physical Exam Vital Signs Vital Signs - 24 hr 04/21/23 22:31 04/21/23 22:49 04/21/23 23:00 Temperature 36.7 C Temperature Source Temporal Artery Scan Pulse Rate 97 H 86 81 Pulse Rate from SpO2 Sensor 77 Pulse Rhythm Respiratory Rate 17 19 Blood Pressure 140/84 137/79 Blood Pressure Mean 102 98 Pulse Oximetry 98 98 Oxygen Delivery Method Room Air Room Air Sepsis Recent Fever Within 48 Hours No Sepsis New/Unexplained Change in Mental Status No Sepsis Action Taken by Nursing No Action Required 04/21/23 23:53 Temperature Temperature Source Pulse Rate 74 Pulse Rate from SpO2 Sensor Pulse Rhythm Irregular Respiratory Rate 18 Blood Pressure Blood Pressure Mean Pulse Oximetry 95 Oxygen Delivery Method Room Air Sepsis Recent Fever Within 48 Hours Sepsis New/Unexplained Change in Mental Status Sepsis Action Taken by Nursing VITALS: Vitals are noted on the nurse's note and reviewed by myself. Vital signs stable. GENERAL: Pleasant gentleman with present, in no acute distress, nondiaphoretic, well-developed well-nourished. SKIN: Capillary reflex less than 2 seconds. HEENT: Normocephalic. PERRLA. EOMI. Nares patent. Mucous membranes moist. Neck is supple without nuchal rigidity. HEART: Regular rate and rhythm LUNGS: Clear to auscultation bilaterally without wheezes, rales or rhonchi. No retractions or accessory muscle use. ABDOMEN: Positive bowel sounds x 4. Normal tympanic percussion. Soft, nontender, without masses or organomegaly. Moore sign negative. No guarding or rebound tenderness. no CVA tenderness MUSCULOSKELETAL: No gross musculoskeletal defects. NEURO: Patient was alert and oriented to person place and time. No focal neurological deficits. Course Administered Medications Meropenem 1,000 mg/ Sodium (Chloride) 80 mls @ 200 mls/hr IV NOW STA; Protocol Stop: 04/22/23 00:42 Last Admin: 04/22/23 00:41 Dose: 200 mls/hr Documented By: CAIO Discontinued Medications Furosemide (Furosemide 40 Mg/4 Ml Vial) 40 mg IV ONE ONE Stop: 04/22/23 00:16 Last Admin: 04/22/23 00:37 Dose: 40 mg Documented By: CAIO Acetaminophen (Ofirmev) 1,000 mg in 100 mls @ 400 mls/hr IV NOW STA Stop: 04/21/23 23:05 Last Infusion: 04/21/23 23:56 Dose: Infused Documented By: Admin: 04/21/23 23:28 Dose: 400 mls/hr Documented By: CAIO Ioversol (Optiray 320 125ml) 104 ml IV ONCE ONE Stop: 04/21/23 23:47 Last Admin: 04/21/23 23:47 Dose: 104 ml Documented By: CHARI Medical Decision Making Medical Records Attestation: I reviewed the patient's medical records. Home Medications Current Medication List: was personally reviewed by ma Laboratory Data Attestation: I reviewed the patient's lab results. 04/21/23 22:43 04/21/23 22:43 Lab Results 04/21/23 Range/Units 22:43 WBC 9.75 (4.8-10.8) K/ul RBC 4.73 (4.70-6.10) M/uL Hgb 12.9 L (14.0-18.0) g/dl Hct 41.1 L (42.0-52.0) % MCV 86.9 (80.0-100.0) fL MCH 27.3 (25.0-34.0) pg MCHC 31.4 L (32.0-36.0) g/dL RDW Std Deviation 49.1 H (36.4-46.3) fL RDW Coeff of Earl 15.4 H (11.5-14.5) % Plt Count 313 (130-400) K/uL MPV 10.0 (9.4-12.4) fL Immature Gran % (Auto) 0.6 % Neut % (Auto) 64.9 % Lymph % (Auto) 23.1 % [place] % (Auto) 8.3 % Eos % (Auto) 2.7 % Baso % (Auto) 0.4 % Neut # (Auto) 6.33 (1.40-6.50) K/uL Lymph # (Auto) 2.25 (1.20-3.40) K/uL [place] # (Auto) 0.81 H (0.11-0.59) K/uL Eos # (Auto) 0.26 (0.00-0.50) K/uL Baso # (Auto) 0.04 (0.00-0.20) K/uL Immature Gran # (Auto) 0.06 (0.01-0.20) K/uL PT 11.6 (9.0-12.0) Seconds INR 1.1 (0.9-1.1) APTT 28 (21-31) Seconds PTT Ratio 1.0 Sodium 138 (136-145) mmol/L Potassium 4.6 (3.5-5.1) mmol/L Chloride 103 (98-107) mmol/L Carbon Dioxide 29 (21-32) mmol/L Anion Gap 6 (3-11) BUN 25 H (6-23) mg/dl Creatinine 1.11 (0.6-1.4) mg/dl Est Cr Clr Drug Dosing 55.6 ml/min Est GFR ( Amer) 71.3 ml/min Est GFR (Non-Af Amer) 61.5 ml/min BUN/Creatinine Ratio 22.5 H (10-20) Glucose 175 H (70-99(Fasting)) mg/dl Calcium 9.4 (8.6-10.3) mg/dl Magnesium 2.0 (1.7-2.4) mg/dl Total Bilirubin 0.8 (0.2-1.0) mg/dl AST 18 (13-39) U/L ALT 28 (7-52) U/L Alkaline Phosphatase 107 H (34-104) U/L Troponin I High Sens 17.6 (0-20) pg/ml B-Natriuretic Peptide 342 H (0-100) pg/ml Total Protein 6.5 (6.0-8.3) gm/dl Albumin 3.6 (3.4-5.0) gm/dl Globulin 2.9 (2.5-4.0) gm/dl Albumin/Globulin Ratio 1.2 (0.9-2) TSH 1.958 (0.300-4.500) uIu/ml Imaging Data Attestation: I personally reviewed and interpreted this imaging study as follows: Radiologist's Impression: Chest CTA 04/21/23 22:51 Exam(s): CTA CHEST IV Amt: 104 ml opti 320 EXAM: CT Angiography Chest With Intravenous Contrast CLINICAL HISTORY: PE. TECHNIQUE: Axial computed tomographic angiography images of the chest with intravenous contrast. CTDI is 26.84 mGy and DLP is 1723.92 mGy-cm. Automated exposure control was utilized for the study. A dose lowering technique was utilized adhering to the principles of ALARA. MIP reconstructed images were created and reviewed. COMPARISON: No relevant prior studies available. FINDINGS: Pulmonary arteries: Unremarkable. No pulmonary embolus. Aorta: No acute findings. No thoracic aortic aneurysm. Lungs: Interseptal thickening is concerning for pulmonary edema. Subtle airspace opacities of the right upper lobe and left lower lobe could represent superimposed atypical infection and/or aspiration. Filling defects of the bronchi of the left lower lobe could represent aspiration and/or mucous plugs. Pleural space: Unremarkable. No significant effusion. No pneumothorax. Heart: Cardiomegaly with dilated left ventricle. No significant pericardial effusion. No evidence of RV dysfunction. Bones/joints: There are degenerative changes of the spine. No acute fracture. No dislocation. Soft tissues: Unremarkable. Lymph nodes: Unremarkable. No enlarged lymph nodes. IMPRESSION: 1. No pulmonary embolus. 2. Interseptal thickening is concerning for pulmonary edema. 3. Subtle airspace opacities of the right upper lobe and left lower lobe could represent superimposed atypical infection and/or aspiration. 4. Cardiomegaly with dilated left ventricle. Electronically signed by: Paz Alicia MD 04/22/23 00:[address] 04/21/23 22:51 Exam(s): CT HEAD Without Contrast EXAM: CT Head Without Intravenous Contrast CLINICAL HISTORY: Headache. TECHNIQUE: Axial computed tomography images of the head/brain without intravenous contrast. CTDI is 49.11 mGy and DLP is 874.17 mGy-cm. Automated exposure control was utilized for the study. A dose lowering technique was utilized adhering to the principles of ALARA. COMPARISON: No relevant prior studies available. FINDINGS: Brain: No intracranial hemorrhage, mass-effect or midline shift. No abnormal extra axial fluid. No evidence of acute infarct. Mild periventricular white matter hypodensities are most consistent with chronic microangiopathy. There is encephalomalacia of the left occipital lobe. Ventricles: Unremarkable. No ventriculomegaly. Bones/joints: Unremarkable. No acute fracture. Soft tissues: Unremarkable. Sinuses: Unremarkable as visualized. No acute sinusitis. Mastoid air cells: Unremarkable as visualized. No mastoid effusion. IMPRESSION: No acute intracranial finding. Electronically signed by: Paz Alicia MD 04/22/23 00:02 AM [facility] Narrative Prior records/ancillary studies reviewed. Triage Nursing notes reviewed. Additional history obtained from family. The patient's history was concerning for chest pain. Differential diagnosis: Etiologies such as cardiac ischemia, aortic dissection, pulmonary embolism, pneumonia, pneumothorax, musculoskeletal, infections, pericarditis, myocarditis, esophageal rupture, gastrointestinal, as well as others were entertained. Physical examination: As above. ER treatment provided: An order was placed for continuous cardiac monitoring. The monitor shows a rate of 60-100 with a A-flutter rhythm per my interpretation. Tylenol was ordered Lasix and meropenem were ordered On reassessment the patient felt better. Diagnostic interpretation by me: The electrocardiogram was ordered for chest pain EKG: Poor baseline, ventricular rate of 86 with left axis left bundle and a fib rate controlled per my independent interpretation The labs Independently Interpreted by myself revealed initial troponin negative and repeat was ordered. Hyperglycemia without DKA Elevated BNP. Imaging studies: Chest x-ray mild pulmonary congestion per my independent or potation CT is reviewed and read by radiology as above HEART SCORE: Hx: high/mod/low suspicion: 1 ECG: ST depression/nonspecific changes/normal: 0 Age: Greater than 65/45-64/less than 45: 2 Risk factors: (Hypertension, hyperlipidemia, diabetes, coronary disease, tobacco use, cocaine use): 2 Troponin: Greater than 2 times normal limits/1-2 times normal limits/normal: 0 Total: 5 Consultation: A consultation was placed with the hospitalist. The case was discussed and diagnostics were reviewed. The patient was evaluated in the ER for further treatment. Exam and history seem consistent chest pain with heart failure and possible aspiration pneumonia. Patient was started on antibiotics. He was hospitalized recently and was placed on meropenem. Initial troponin was negative. He was not hypoxic. He was not retracting. EKG was a fib and patient has a history of this. He is on Eliquis. Medicine was consulted and case discussed. He will be admitted to the medical service for further evaluation and workup. Heart score is moderate. No PE on imaging. By the evaluation outlined above emergent etiologies such as aortic dissection, pulmonary embolism, pneumothorax, pericarditis, myocarditis, gastrointestinal, as well as others were deemed relatively unlikely. The pt informed about the findings as listed above. All questions were answered and pleased with the treatment. The chart was completed utilizing [employer] Speech voice recognition software. Grammatical errors, random word insertions, pronoun errors, and incomplete sentences are an occassional consequence of this system due to software limitations, ambient noise, and hardware issues. Any formal questions or concerns about the content, text, or information contained within the body of this dictation should be directly addressed to the physician assistant to the ceo for clarification. Impression & Plan Chest pain, Heart failure, Aspiration pneumonia Discharge Plan Visit Data Chief Complaint: Chest Pain Stated Complaint: CHEST TIGHTNESS ED Provider: Pa Lowery ED Midlevel Provider: [place] [facility] Discharge Problem: Chest pain, Heart failure, Aspiration pneumonia Patient Disposition: Admitted As Inpatient Condition: Good Forms Stand Alone Forms: My [facility] [employer] Prescriptions Prescriptions: No Action atorvastatin 80 mg tablet 80 mg PO QAM finasteride 5 mg tablet 5 mg PO QAM tamsulosin 0.4 mg capsule 0.4 mg PO HS aspirin 81 mg Tablet,Delayed Release (Dr/Ec) 81 mg PO QAM metoprolol succinate 50 mg tablet extended release 24 hr 50 mg PO QAM spironolactone 25 mg tablet 12.5 mg PO QAM Rx Instructions: Take 12.5 mg daily. lisinopril 2.5 mg tablet 2.5 mg PO QAM Rx Instructions: Take 2.5 mg daily. Eliquis 5 mg Tablet 5 mg PO BID Qty: 60 0RF furosemide 20 mg Tablet 20 mg PO QAM Qty: 30 0RF Referrals Referrals: Adam Siddiqi MD [Primary Care Provider] - Discharge Problem: Chest pain Qualifiers: Chest pain type: unspecified Qualified Code(s): R07.9 - Chest pain, unspecified
[2023-04-21] MEDS: ACETAMINOPHEN 1,000 MG/100 ML VIAL IV STA (23:28)
[2023-04-21 23:29] LABS: Thyroid Stimulating Hormone 1.958 uIu/ml (0.300-4.500)
[2023-04-21 23:31] LABS: INR 1.1 (0.9-1.1); Partial Thromboplastin Time 28 Seconds (21-31); Prothrombin Time 11.6 Seconds (9.0-12.0)
[2023-04-21] MEDS: OPTIRAY 320 125ml IV ONE (23:47)
--- NOTE | 2023-04-22 00:04 | CT Scan Report ---
Exam(s): CT HEAD Without Contrast EXAM: CT Head Without Intravenous Contrast CLINICAL HISTORY: Headache. TECHNIQUE: Axial computed tomography images of the head/brain without intravenous contrast. CTDI is 49.11 mGy and DLP is 874.17 mGy-cm. Automated exposure control was utilized for the study. A dose lowering technique was utilized adhering to the principles of ALARA. COMPARISON: No relevant prior studies available. FINDINGS: Brain: No intracranial hemorrhage, mass-effect or midline shift. No abnormal extra axial fluid. No evidence of acute infarct. Mild periventricular white matter hypodensities are most consistent with chronic microangiopathy. There is encephalomalacia of the left occipital lobe. Ventricles: Unremarkable. No ventriculomegaly. Bones/joints: Unremarkable. No acute fracture. Soft tissues: Unremarkable. Sinuses: Unremarkable as visualized. No acute sinusitis. Mastoid air cells: Unremarkable as visualized. No mastoid effusion. IMPRESSION: No acute intracranial finding. Electronically signed by: Paz Alicia MD 04/22/23 00:02 AM
--- NOTE | 2023-04-22 00:06 | CT Scan Report ---
Exam(s): CTA CHEST IV Amt: 104 ml opti 320 EXAM: CT Angiography Chest With Intravenous Contrast CLINICAL HISTORY: PE. TECHNIQUE: Axial computed tomographic angiography images of the chest with intravenous contrast. CTDI is 26.84 mGy and DLP is 1723.92 mGy-cm. Automated exposure control was utilized for the study. A dose lowering technique was utilized adhering to the principles of ALARA. MIP reconstructed images were created and reviewed. COMPARISON: No relevant prior studies available. FINDINGS: Pulmonary arteries: Unremarkable. No pulmonary embolus. Aorta: No acute findings. No thoracic aortic aneurysm. Lungs: Interseptal thickening is concerning for pulmonary edema. Subtle airspace opacities of the right upper lobe and left lower lobe could represent superimposed atypical infection and/or aspiration. Filling defects of the bronchi of the left lower lobe could represent aspiration and/or mucous plugs. Pleural space: Unremarkable. No significant effusion. No pneumothorax. Heart: Cardiomegaly with dilated left ventricle. No significant pericardial effusion. No evidence of RV dysfunction. Bones/joints: There are degenerative changes of the spine. No acute fracture. No dislocation. Soft tissues: Unremarkable. Lymph nodes: Unremarkable. No enlarged lymph nodes. IMPRESSION: 1. No pulmonary embolus. 2. Interseptal thickening is concerning for pulmonary edema. 3. Subtle airspace opacities of the right upper lobe and left lower lobe could represent superimposed atypical infection and/or aspiration. 4. Cardiomegaly with dilated left ventricle. Electronically signed by: Paz Alicia MD 04/22/23 00:05 AM
--- NOTE | 2023-04-22 00:22 | Emergency Department Note ---
ED Visit Note Staff note: I have reviewed the Patients chart and have discussed this case with my PA. I generally agree with the ED note and findings. .
[2023-04-22] MEDS: FUROSEMIDE 40 MG/4 ML VIAL IV ONE (00:37)
[2023-04-22] MEDS: MEROPENEM 1,000 MG in 0.9 % SODIUM CHLORIDE 60 ML IV STA (00:41)
[2023-04-22] MEDS: PROMETHAZINE 12.5 MG/50.5 ML BAG IV STA (05:35)
--- NOTE | 2023-04-22 06:22 | History & Physical Report ---
Date of Service April 22, 2023 Assessment & Plan (1) Chest pain: Plan: [id number]-male with past medical history significant for chronic systolic CHF EF 25%, CAD, hypertension, hyperlipidemia, history of CVA, diabetes diet- controlled, chronic anemia baseline hemoglobin 13, BPH, skin cancer per records history of A-fib on Eliquis who recently in the hospital initially thought to be left septic arthritis of the knee but it was ruled out and thought was pse udogout treated with prednisone comes because of chest pain. Patient states he was watching TV at 9:30 PM when he had left-sided chest pain 3-5/10 in severity and possible radiation to back of the neck. He also felt diaphoretic and felt warm. Thinks he had low-grade temperature. Denies any shortness of breath. In the ER he had episode of nausea and vomiting. Denies any headache. Earlier had some runny nose. No sore throat. Denies any cough. No abdominal pain. Normal bowel and bladder movements. Hemodynamics are ok Chest pain Initial troponin okay EKG left bundle branch block which is old Will follow serial enzymes and echo N.p.o. Consult cardiology Telemetry Acute on chronic systolic CHF CT chest showing pulmonary edema Denies any shortness of breath Saturating okay on room air Received IV Lasix 40 mg in ER Will continue with IV Lasix 20 mg twice daily and continue home spironolactone Continue metoprolol succinate and lisinopril Cardio consulted Possible aspiration pneumonia Received meropenem in ER Empirically placing on Invanz and Doxy Currently n.p.o. Speech evaluation History of CAD On aspirin statin and beta-lux History of A-fib On metoprolol succinate and Eliquis Prolonged qtc 500 avoid qt prolonging drugs follow repeat ekg. BPH Flomax and Proscar DVT prophylaxis On Eliquis Disposition Telemetry Full code History of Present Illness Chief Complaint: Chest pain Primary Care Provider: Adam Siddiqi MD [id number]-male with past medical history significant for chronic systolic CHF EF 25%, CAD, hypertension, hyperlipidemia, history of CVA, diabetes diet- controlled, chronic anemia baseline hemoglobin 13, BPH, skin cancer per records history of A-fib on Eliquis who recently in the hospital initially thought to be left septic arthritis of the knee but it was ruled out and thought was pseudogout treated with prednisone comes because of chest pain. Patient states he was watching TV at 9:30 PM when he had left-sided chest pain 3-5/10 in severity and possible radiation to back of the neck. He also felt diaphoretic and felt warm. Thinks he had low-grade temperature. Denies any shortness of breath. In the ER he had episode of nausea and vomiting. Denies any headache. Earlier had some runny nose. No sore throat. Denies any cough. No abdominal pain. Normal bowel and bladder movements. Hemodynamics are okay. Past medical history. As mentioned above Past surgical history. Colonoscopy. Injection of lumbosacral spine. Appendectomy. Cataracts procedure. Social history. . Quit smoking 1994. Smoked for 15 years. Alcohol rarely. No drug use. Family history. Sister had multiple myeloma. Brother of CAD at age of 55. Sister s/p MVR. Father had multiple strokes. Allergies Allergy/AdvReac Type Severity Reaction Status Date / Time Penicillins Allergy Severe TONGUE Verified 04/22/23 03:00 SWELLING amoxicillin [From Augmentin] AdvReac Unknown Vomiting Verified 04/22/23 03:00 clavulanic acid AdvReac Unknown Vomiting Verified 04/22/23 03:00 [From Augmentin] Home Medications Medication Instructions Recorded Confirmed Type atorvastatin 80 mg tablet 80 mg PO QAM 11/26/18 04/22/23 History aspirin 81 mg tablet,delayed 81 mg PO QAM 01/03/19 04/22/23 History release metoprolol succinate 50 mg 50 mg PO QAM 07/26/20 04/22/23 History tablet,extended release 24 hr apixaban 5 mg tablet (Eliquis) 5 mg PO BID #60 tabs 02/07/21 04/22/23 Rx furosemide 20 mg tablet 20 mg PO QAM #30 tabs 02/07/21 04/22/23 Rx lisinopril 2.5 mg tablet 2.5 mg PO QAM 05/30/21 04/22/23 History spironolactone 25 mg tablet 12.5 mg PO QAM 05/30/21 04/22/23 History finasteride 5 mg tablet 5 mg PO QAM 08/02/22 04/22/23 History tamsulosin 0.4 mg capsule 0.4 mg PO HS 08/02/22 04/22/23 History Past Med/Surg History Medical History BPH with obstruction/lower urinary tract symptoms Degenerative disc disease Arthritis History of pyloric stenosis as a child Diabetes mellitus, type 2 NO MEDS History of skin cancer Transient ischemic attack (TIA) AROUND 2019? *NO PROBLEMS FROM EVENT HTN (hypertension) Systolic CHF FOLLOWS DR. LR>PT UNSURE OF CARDIAC HX Ischemic cardiomyopathy CAD (coronary artery disease) 1994-anterior wall [place], no intervention Dyslipidemia DM type 2 (diabetes mellitus, type 2) Surgical History History of colonoscopy History of repair of pyloric stenosis History of tooth extraction History of cardiac cath 1994 History of cataract surgery RT/LEFT History of appendectomy Family History Sister Multiple myeloma Brother Heart disease Other No family history of adverse response to anesthesia Social History Smoking Status: Never smoker Second Hand Exposure: No; Do You Dip or Chew Tobacco: No; Tobacco Cessation Education Requested by Patient: No Hx Alcohol Use: Yes Alcohol type: hard liquor Hx Substance Use: No Preferred Language: Rwandan Communication Ability: Effective Graduate Advisor Required: No Beliefs That Will Affect Care: None marital status: Current Living Situation: Spouse Other Information That Helps Us Care for You: No Feels Safe at Home: Yes Safety Concerns: Feels Safe At This Time Assistive Devices: Denture - Upper Review of Systems Review of Systems: All systems reviewed & are unremarkable except as noted in HPI & below Physical Exam Physical Exam: General- Not in distress Head- atraumatic Eyes- PERRL, EOMI, anicteric ENT- oropharynx clear Neck- supple, no JVD,. Lungs- clear to auscultation no wheezing or crackles Heart- regular rhythm; no murmur, no gallop. Abdomen- normal bowel sounds, soft, nontender, no distension. Extremities- no pretibial edema, no erythema seen. Neuro- alert, oriented ; PERRL,no facial palsy; no dysarthria; moves extremities. Skin- warm & dry Results & Data Results & Data Vital Signs (Past 12 Hours) Vital Signs Temp Pulse Resp BP Pulse Ox O2 Del Method 04/22/23 06:08 16 117/67 98 04/22/23 05:00 16 135/86 97 04/22/23 04:30 16 133/76 97 04/22/23 03:00 90 24 122/66 95 04/22/23 02:38 94 H 04/22/23 02:00 18 110/68 95 Room Air 04/22/23 01:50 28 H 97 04/22/23 01:40 29 H 98 04/22/23 01:30 81 28 H 96 04/22/23 01:20 81 26 H 97 04/22/23 01:10 85 29 H 96 04/22/23 01:00 142/82 H 04/22/23 01:00 87 18 97 04/22/23 00:50 94 H 22 91 04/22/23 00:40 89 22 98 04/22/23 00:30 93 H 24 98 04/22/23 00:20 83 23 96 04/22/23 00:10 79 23 96 04/22/23 00:00 79 30 H 122/74 94 Room Air 04/22/23 00:00 122/74 04/21/23 23:53 74 18 95 Room Air 04/21/23 23:00 81 19 137/79 98 Room Air 04/21/23 22:49 86 04/21/23 22:31 36.7 C 97 H 17 140/84 98 Room Air Diagnostic Findings Laboratory Results WBC 9.75 K/ul (4.8-10.8) 04/21/23 22:43 RBC 4.73 M/uL (4.70-6.10) 04/21/23 22:43 Hgb 12.9 g/dl (14.0-18.0) L 04/21/23 22:43 Hct 41.1 % (42.0-52.0) L 04/21/23 22:43 MCV 86.9 fL (80.0-100.0) 04/21/23 22:43 MCH 27.3 pg (25.0-34.0) 04/21/23 22:43 MCHC 31.4 g/dL (32.0-36.0) L 04/21/23 22:43 RDW Std Deviation 49.1 fL (36.4-46.3) H 04/21/23 22:43 RDW Coeff of [place] 15.4 % (11.5-14.5) H 04/21/23 22:43 Plt Count 313 K/uL (130-400) 04/21/23 22:43 MPV 10.0 fL (9.4-12.4) 04/21/23 22:43 Immature Gran % (Auto) 0.6 % 04/21/23 22:43 Neut % (Auto) 64.9 % 04/21/23 22:43 Lymph % (Auto) 23.1 % 04/21/23 22:43 [place] % (Auto) 8.3 % 04/21/23 22:43 Eos % (Auto) 2.7 % 04/21/23 22:43 Baso % (Auto) 0.4 % 04/21/23 22:43 Neut # (Auto) 6.33 K/uL (1.40-6.50) 04/21/23 22:43 Lymph # (Auto) 2.25 K/uL (1.20-3.40) 04/21/23 22:43 [place] # (Auto) 0.81 K/uL (0.11-0.59) H 04/21/23 22:43 Eos # (Auto) 0.26 K/uL (0.00-0.50) 04/21/23 22:43 Baso # (Auto) 0.04 K/uL (0.00-0.20) 04/21/23 22:43 Immature Gran # (Auto) 0.06 K/uL (0.01-0.20) 04/21/23 22:43 PT 11.6 Seconds (9.0-12.0) 04/21/23 22:43 INR 1.1 (0.9-1.1) 04/21/23 22:43 APTT 28 Seconds (21-31) 04/21/23 22:43 PTT Ratio 1.0 04/21/23 22:43 Sodium 138 mmol/L (136-145) 04/21/23 22:43 Potassium 4.6 mmol/L (3.5-5.1) 04/21/23 22:43 Chloride 103 mmol/L (98-107) 04/21/23 22:43 Carbon Dioxide 29 mmol/L (21-32) 04/21/23 22:43 Anion Gap 6 (3-11) 04/21/23 22:43 BUN 25 mg/dl (6-23) H 04/21/23 22:43 Creatinine 1.11 mg/dl (0.6-1.4) 04/21/23 22:43 Est Cr Clr Drug Dosing 55.6 ml/min 04/21/23 22:43 Est GFR ( Amer) 71.3 ml/min 04/21/23 22:43 Est GFR (Non-Af Amer) 61.5 ml/min 04/21/23 22:43 BUN/Creatinine Ratio 22.5 (10-20) H 04/21/23 22:43 Glucose 175 mg/dl (70-99(Fasting)) H 04/21/23 22:43 Calcium 9.4 mg/dl (8.6-10.3) 04/21/23 22:43 Magnesium 2.0 mg/dl (1.7-2.4) 04/21/23 22:43 Total Bilirubin 0.8 mg/dl (0.2-1.0) 04/21/23 22:43 AST 18 U/L (13-39) 04/21/23 22:43 ALT 28 U/L (7-52) 04/21/23 22:43 Alkaline Phosphatase 107 U/L (34-104) H 04/21/23 22:43 Troponin I High Sens 17.6 pg/ml (0-20) 04/21/23 22:43 B-Natriuretic Peptide 342 pg/ml (0-100) H 04/21/23 22:43 Total Protein 6.5 gm/dl (6.0-8.3) 04/21/23 22:43 Albumin 3.6 gm/dl (3.4-5.0) 04/21/23 22:43 Globulin 2.9 gm/dl (2.5-4.0) 04/21/23 22:43 Albumin/Globulin Ratio 1.2 (0.9-2) 04/21/23 22:43 TSH 1.958 uIu/ml (0.300-4.500) 04/21/23 22:43 Impressions Chest CTA 04/21/23 22:51 Exam(s): CTA CHEST IV Amt: 104 ml opti 320 EXAM: CT Angiography Chest With Intravenous Contrast CLINICAL HISTORY: PE. TECHNIQUE: Axial computed tomographic angiography images of the chest with intravenous contrast. CTDI is 26.84 mGy and DLP is 1723.92 mGy-cm. Automated exposure control was utilized for the study. A dose lowering technique was utilized adhering to the principles of ALARA. MIP reconstructed images were created and reviewed. COMPARISON: No relevant prior studies available. FINDINGS: Pulmonary arteries: Unremarkable. No pulmonary embolus. Aorta: No acute findings. No thoracic aortic aneurysm. Lungs: Interseptal thickening is concerning for pulmonary edema. Subtle airspace opacities of the right upper lobe and left lower lobe could represent superimposed atypical infection and/or aspiration. Filling defects of the bronchi of the left lower lobe could represent aspiration and/or mucous plugs. Pleural space: Unremarkable. No significant effusion. No pneumothorax. Heart: Cardiomegaly with dilated left ventricle. No significant pericardial effusion. No evidence of RV dysfunction. Bones/joints: There are degenerative changes of the spine. No acute fracture. No dislocation. Soft tissues: Unremarkable. Lymph nodes: Unremarkable. No enlarged lymph nodes. IMPRESSION: 1. No pulmonary embolus. 2. Interseptal thickening is concerning for pulmonary edema. 3. Subtle airspace opacities of the right upper lobe and left lower lobe could represent superimposed atypical infection and/or aspiration. 4. Cardiomegaly with dilated left ventricle. Electronically signed by: Paz Alicia MD 04/22/23 00:[address] 04/21/23 22:51 Exam(s): CT HEAD Without Contrast EXAM: CT Head Without Intravenous Contrast CLINICAL HISTORY: Headache. TECHNIQUE: Axial computed tomography images of the head/brain without intravenous contrast. CTDI is 49.11 mGy and DLP is 874.17 mGy-cm. Automated exposure control was utilized for the study. A dose lowering technique was utilized adhering to the principles of ALARA. COMPARISON: No relevant prior studies available. FINDINGS: Brain: No intracranial hemorrhage, mass-effect or midline shift. No abnormal extra axial fluid. No evidence of acute infarct. Mild periventricular white matter hypodensities are most consistent with chronic microangiopathy. There is encephalomalacia of the left occipital lobe. Ventricles: Unremarkable. No ventriculomegaly. Bones/joints: Unremarkable. No acute fracture. Soft tissues: Unremarkable. Sinuses: Unremarkable as visualized. No acute sinusitis. Mastoid air cells: Unremarkable as visualized. No mastoid effusion. IMPRESSION: No acute intracranial finding. Electronically signed by: Paz Alicia MD 04/22/23 00:02 AM ECG Additional Comments: ECG. Atrial fibrillation rate of 86. Left axis deviation. Left bundle branch block. QT C500 Code Status & VTE Plan VTE Prophylaxis Plan VTE Prophylaxis will be ordered: Yes (1) Chest pain Chest pain type: unspecified Qualified Code(s): R07.9 - Chest pain, unspecified
[2023-04-22] MEDS ORDERED: NITROGLYCERIN SL 0.4 MG/TAB TAB SL PRN (08:13)
[2023-04-22] MEDS ORDERED: ACETAMINOPHEN 325 MG TAB PO PRN (08:13)
--- NOTE | 2023-04-22 08:14 | XRay Report ---
XR chest 1V not portable CLINICAL HISTORY: Chest pain, nonspecific COMPARISON STUDY: Chest CT February 06, 2021. Chest radiograph April 03, 2023. FINDINGS: There is no pneumothorax or pleural effusion. Cardiomegaly is unchanged. There is no eviden ce for pulmonary edema. Mild left basilar opacity favors atelectasis. There is no consolidation to wood ggest pneumonia. IMPRESSION: No acute cardiopulmonary findings. ACT 112: Negative or not required by law. Electronically signed by: Dawood John M.D. 04/22/2023 8:12 AM
[2023-04-22] MEDS: METOPROLOL SUCC 50MG EXT REL TAB PO SCH (10:12)
[2023-04-22] MEDS: DOXYCYCLINE HYCLATE 100 MG in DEXTROSE 5% MINI-B 100 ML IV SCH (10:12)
[2023-04-22] MEDS: ATORVASTATIN 40 MG TAB PO SCH (10:12)
[2023-04-22] MEDS: ERTAPENEM SODIUM 1,000 MG in SYRINGE 0 ML IV SCH (10:12)
[2023-04-22] MEDS: lisinopril 2.5 MG TAB PO SCH (10:12)
[2023-04-22] MEDS: SPIRONOLACTONE 12.5 MG TAB PO SCH (10:13)
[2023-04-22] MEDS: ASPIRIN 81 MG ECTAB PO SCH (10:13)
[2023-04-22] MEDS: FUROSEMIDE INJ 20 MG/2 ML VIAL IV SCH (10:13)
[2023-04-22] MEDS: APIXABAN 5 MG TABLET PO SCH (10:13)
[2023-04-22] MEDS: FINASTERIDE 5 MG TAB PO SCH (10:13)
[2023-04-22] MEDS: PROMETHAZINE HCL 12.5 MG in SODIUM CHLORIDE 0.9% 50 ML IV STA (10:41)
[2023-04-22] MEDS: PROMETHAZINE 12.5 MG/50.5 ML NSS IV ONE (10:42)
--- NOTE | 2023-04-22 14:12 | Cardiology Consultation ---
Date of Consultation April 22, 2023 Assessment & Plan (1) Chest pain: (2) Ischemic cardiomyopathy: (3) Left bundle branch block (LBBB): (4) Permanent atrial fibrillation: Patient without ongoing symptoms to suggest angina or heart failure decompensation. Serial high-sensitivity troponins are negative. At rest his ventricular rates with regards to his atrial fibrillation are relatively well-controlled, but elevated with minimal activity such as eating lunch. CT of the chest suggestive of possible pneumonia and he is being treated for such. He described abdominal discomfort at the time of his assessment hospitalist service and a CT of the abdomen pelvis has been requested. As well as be h elpful as there was an echo-free space noted on limited imaging of the liver at the time of his echocardiogram, possibly have a hepatic cyst, but this will be more completely visualized on the CT. Continue current cardiac medications including aspirin, Eliquis, spironolactone, atorvastatin, lisinopril, metoprolol succinate. Agree with plans for IV furosemide while he is on IV antibiotics in effort to prevent volume overload. History of Present Illness Attending Physician: Sal Ashraf MD History of Present Illness Mr Mckeon is an 82-year-old male seen in cardiology consultation per the request of Dr. Torres for the evaluation of chest discomfort. Patient seen in the emergency department, room C1. He describes onset of a bandlike discomfort at the lower rib margin/upper epigastric region overnight last night worse with deep inspiration. Denies recent cough. Denies worsening shortness of breath. History is otherwise notable for recent left knee arthroscopic incision and drainage on 04/03/2023 for with concerns at this time for septic arthritis howev er findings were suggestive of pseudogout rather than infection. Patient with mild ongoing swelling of his left knee on inspection. Cardiac History: History of remote [place] myocardial infarction that took place in 1994 with resultant ischemic cardiomyopathy, severe left ventricular systolic dysfunction Chronic left bundle branch block Persistent atrial fibrillation initially diagnosed at time of hospital stay for a pneumonia episode in 2020 Patient has declined AICD implantation in the past which has been discussed with him on multiple occasions. Allergies Allergy/AdvReac Type Severity Reaction Status Date / Time Penicillins Allergy Severe TONGUE Verified 04/22/23 03:00 SWELLING amoxicillin [From Augmentin] AdvReac Unknown Vomiting Verified 04/22/23 03:00 clavulanic acid AdvReac Unknown Vomiting Verified 04/22/23 03:00 [From Augmentin] Home Medications Medication Instructions Recorded Confirmed Type atorvastatin 80 mg tablet 80 mg PO QAM 11/26/18 04/22/23 History aspirin 81 mg tablet,delayed 81 mg PO QAM 01/03/19 04/22/23 History release metoprolol succinate 50 mg 50 mg PO QAM 07/26/20 04/22/23 History tablet,extended release 24 hr apixaban 5 mg tablet (Eliquis) 5 mg PO BID #60 tabs 02/07/21 04/22/23 Rx furosemide 20 mg tablet 20 mg PO QAM #30 tabs 02/07/21 04/22/23 Rx lisinopril 2.5 mg tablet 2.5 mg PO QAM 05/30/21 04/22/23 History spironolactone 25 mg tablet 12.5 mg PO QAM 05/30/21 04/22/23 History finasteride 5 mg tablet 5 mg PO QAM 08/02/22 04/22/23 History tamsulosin 0.4 mg capsule 0.4 mg PO HS 08/02/22 04/22/23 History Patient History Medical History BPH with obstruction/lower urinary tract symptoms Degenerative disc disease Arthritis History of pyloric stenosis as a child Diabetes mellitus, type 2 NO MEDS History of skin cancer Transient ischemic attack (TIA) AROUND 2019? *NO PROBLEMS FROM EVENT HTN (hypertension) Systolic CHF FOLLOWS DR. LR>PT UNSURE OF CARDIAC HX Ischemic cardiomyopathy CAD (coronary artery disease) 1994-anterior wall [place], no intervention Dyslipidemia DM type 2 (diabetes mellitus, type 2) Surgical History History of colonoscopy History of repair of pyloric stenosis History of tooth extraction History of cardiac cath 1994 History of cataract surgery RT/LEFT History of appendectomy Family History Sister Multiple myeloma Brother Heart disease Other No family history of adverse response to anesthesia Social History Smoking Status: Never smoker Second Hand Exposure: No; Do You Dip or Chew Tobacco: No; Tobacco Cessation Education Requested by Patient: No Hx Alcohol Use: Yes Alcohol type: hard liquor Hx Substance Use: No Preferred Language: Azeri Communication Ability: Effective M48/M60 Tank Driver Required: No Beliefs That Will Affect Care: None marital status: Current Living Situation: Spouse Other Information That Helps Us Care for You: No Feels Safe at Home: Yes Safety Concerns: Feels Safe At This Time Assistive Devices: Denture - Upper Review of Systems Review of Systems: All systems reviewed & are unremarkable except as noted in HPI & below Physical Exam Physical Exam: Temp Pulse Resp BP Pulse Ox O2 Del Method 36.9 C 110 H 20 126/76 98 Room Air 04/22/23 08:22 04/22/23 08:22 04/22/23 08:22 04/22/23 08:22 04/22/23 08:22 04/22/23 08:22 General: Frail, no acute distress and stated age Eyes: conjunctiva are pink and non-injected, sclera clear Neck: normal jugular venous pulse, no hepatojugular reflux Chest: normal shape and normal respiratory effort Lungs: clear to auscultation and percussion Cardiac Exam: -Irregular rhythm, no murmurs, no edema, no JVD Abdomen: abdomen soft, non-tender, no abnormal masses and no hepatosplenomegaly Musculoskeletal: no gait disturbance, no weakness Extremities: no edema and no cyanosis, well-healing incisions arthroscopic left knee surgery Neuro:awake, conversant, follows commands, no focal motor deficits Psych: appropriate affect and insight. Results & Data Vital Signs (Past 12 Hours) Vital Signs Temp Pulse Pulse Resp BP BP Pulse Ox 04/22/23 08:22 04/22/23 08:22 36.9 C 110 H 20 126/76 98 04/22/23 08:22 98 04/22/23 06:08 16 117/67 98 04/22/23 05:00 16 135/86 97 04/22/23 04:30 16 133/76 97 04/22/23 03:00 90 24 122/66 95 04/22/23 02:38 94 H 04/22/23 02:00 18 110/68 95 Pulse Ox O2 Del Method O2 Del Method 04/22/23 08:22 98 Room Air 04/22/23 08:22 Room Air 04/22/23 08:22 Room Air 04/22/23 06:08 04/22/23 05:00 04/22/23 04:30 02/18/24 03:00 04/22/23 02:38 04/22/23 02:00 Room Air Laboratory Results Cardiac Enzymes 04/21/23 04/22/23 04/22/23 Range/Units 22:43 08:56 10:31 AST 18 (13-39) U/L Troponin I High Sens 17.6 10.7 D 11.9 (0-20) pg/ml B-Natriuretic Peptide 342 H (0-100) pg/ml Coagulation 04/21/23 Range/Units 22:43 PT 11.6 (9.0-12.0) Seconds APTT 28 (21-31) Seconds B-Natriuretic Peptide 342 H (0-100) pg/ml CBC 04/21/23 Range/Units 22:43 WBC 9.75 (4.8-10.8) K/ul RBC 4.73 (4.70-6.10) M/uL Hgb 12.9 L (14.0-18.0) g/dl Hct 41.1 L (42.0-52.0) % Plt Count 313 (130-400) K/uL Neut # (Auto) 6.33 (1.40-6.50) K/uL Lymph # (Auto) 2.25 (1.20-3.40) K/uL [place] # (Auto) 0.81 H (0.11-0.59) K/uL Eos # (Auto) 0.26 (0.00-0.50) K/uL Baso # (Auto) 0.04 (0.00-0.20) K/uL Comprehensive Metabolic Panel 04/21/23 Range/Units 22:43 Sodium 138 (136-145) mmol/L Potassium 4.6 (3.5-5.1) mmol/L Chloride 103 (98-107) mmol/L Carbon Dioxide 29 (21-32) mmol/L BUN 25 H (6-23) mg/dl Creatinine 1.11 (0.6-1.4) mg/dl Glucose 175 H (70-99(Fasting)) mg/dl Calcium 9.4 (8.6-10.3) mg/dl AST 18 (13-39) U/L ALT 28 (7-52) U/L Alkaline Phosphatase 107 H (34-104) U/L Total Protein 6.5 (6.0-8.3) gm/dl Albumin 3.6 (3.4-5.0) gm/dl Intake and Output 04/21/23 04/22/23 04/22/23 22:59 06:59 14:59 Intake Total 230.5 / 230.5 150.5 / 150.5 Output Total 600 / 600 Balance 230.5 / 230.5 -449.5 / -449.5 Intake: IV 230.5 / 230.5 150.5 / 150.5 Acetaminophen 1,000 mg In 100 100 / 100 ml @ 400 mls/hr IV NOW STA Rx#: [id number] Doxycycline Hyclate 100 mg In 100 / 100 Dextrose 5% Mini-B 100 ml @ 50 mls/hr IV Q12H [facility] Rx#:[id number] Meropenem 1,000 mg In 0.9 % 80 / 80 Sodium Chloride 60 ml @ 200 mls /hr IV NOW STA Rx#:[id number] Promethazine 12.5 mg In 50.5 ml 50.5 / 50.5 @ 202 mls/hr IV NOW STA Rx#: [id number] Promethazine HCl 12.5 mg In 50.5 / 50.5 Sodium Chloride 0.9% 50 ml @ 202 mls/hr IV NOW STA Rx#: [id number] Output: Urine 600 / 600 Other: Weight 85.5 kg 81.6 kg Weight Measurement Method Chair Scale Built in [facility] Patient Weight 04/23/23 06:59 Weight 81.6 kg Diagnostic Findings EKG performed 04/21/2023 at 2238 and interpret independently: Atrial fibrillation 86 bpm, left bundle branch block, QRS duration 168 ms, compared to the previous tracing performed 04/03/2023, the QT interval is slightly prolonged at 500 ms per the computer interpretation however this must be interpreted in the setting of left bundle branch block with wide QRS complex and the irregular RR interval and overall is likely relatively unchanged. Transthoracic echocardiogram performed 04/22/2023 and interpret independently: Rate controlled atrial fibrillation present during echocardiogram study Left ventricle is severely dilated, with left ventricular end-diastolic dimension of 6.9 cm The anterior and septal palmer are thin and akinetic. The apex is akinetic. The inferoseptal wall motion is abnormal and consistent with left bundle branch block The left ventricular systolic function is severely reduced with LVEF in the range of 20 -25% The left atrium is moderately dilated There is moderate mitral regurgitation An echo-free lesion is noted in the liver consistent with possible hepatic cyst. Compared to the previous study performed in February, there has been interval increase in left ventricular chamber size. The LVEF of 20-25% is relatively unchanged compared to the ejection fraction 25% noted in 202. The echo-free lesion in the liver was not appreciated on the previous study as the same territory the liver was not visualized. (1) Chest pain Chest pain type: unspecified Qualified Code(s): R07.9 - Chest pain, unspecified
[2023-04-22] MEDS: OPTIRAY 320 500ml IV ONE (15:06)
--- NOTE | 2023-04-22 15:32 | CT Scan Report ---
CT OF THE ABDOMEN AND PELVIS WITH CONTRAST CLINICAL HISTORY: left lower quadrant pain, r/o diverticulitis COMPARISON STUDY: None. TECHNIQUE: Following IV administration of 84 mL of Optiray, axial images of the abdomen and pelvis we re obtained from the lung bases to the proximal femurs. Images were reviewed in the axial, sagittal, and coronal planes. IV contrast was administered without complication. Automated exposure control wa s utilized for the study. A dose lowering technique was utilized adhering to the principles of ALARA . CT DOSE: 1148.99 mGy.cm FINDINGS: No pneumatosis, free air or portal venous gas is present. The gallbladder is moderately dis tended. There is moderate pericholecystic stranding. Contents within the gallbladder are present. The re is no biliary or pancreatic ductal dilatation. No hepatic lesions are present. Spleen, adrenal gla nds and pancreas are unremarkable. There is excreted contrast within the collecting systems, ureters and bladder from recent contrast-enhanced chest CT. Bladder wall is irregular and trabeculated with s everal small bladder diverticula. The findings are chronic. There is colonic diverticulosis without e vidence for acute diverticulitis. Caliber and wall thickness of small and large bowel are normal. Jolly er attenuation bilateral renal lesions measure up to 4.7 cm. These reflect cysts. Several subcentimet er renal lesions are too small to characterize. The appendix is visualized. There is no right lower q uadrant inflammation. No lymphadenopathy. IMPRESSION: 1. Cholelithiasis with gallbladder distention and pericholecystic stranding. The findings are highly suggestive of acute cholecystitis. 2. No biliary ductal dilatation. 3. Colonic diverticulosis. No evidence for acute diverticulitis. No bowel obstruction. ACT 112: Negative or not required by law. Electronically signed by: Dawood John M.D. 04/22/2023 3:30 PM
--- NOTE | 2023-04-22 15:49 | Hospitalist Progress Note ---
Date of Service April 22, 2023 Assessment & Plan (1) Chest pain: Plan: [id number] with past medical history significant for chronic systolic CHF EF 25%, CAD, hypertension, hyperlipidemia, history of CVA, diabetes diet- controlled, chronic anemia baseline hemoglobin 13, BPH, skin cancer per records history of A-fib on Eliquis presents to the hospital with chest pain. The chest pain was left-sided; 3 to 5 x 10 in severity with radiation to the back of the neck. Patient also had episode of nausea and vomiting. Chest pain Ischemic cardiomyopathy ACS ruled out History of remote [place] territory [place] in 1994 resulting in ischemic cardiomyopathy. He presents with sudden onset of chest pain EKG on admission shows sinus rhythm with LBBB High sensitive troponin negative Echocardiogram shows EF of 20 to 25% with severely dilated left ventricle. Cardiology consulted; continue on aspirin, statin, beta-lux, spironolactone Monitor on telemetry Acute on chronic systolic CHF CT chest showing pulmonary edema Denies any shortness of breath Saturating okay on room air Will continue with IV Lasix 20 mg twice daily and continue home spironolactone Continue metoprolol succinate and lisinopril Possible aspiration pneumonia Possible acute cholecystitis CT chest on admission personally reviewed; no PE. Interseptal thickening concerning for pulmonary edema. Also has subtle airspace opacities on right upper lobe and left lower lobe CT abdomen concerning for acute cholecystitis. Empirically placing on Invanz and Doxy Will follow-up on blood culture Obtain right upper quadrant ultrasound History of CAD On aspirin statin and beta-lux History of A-fib On metoprolol succinate and Eliquis Prolonged qtc 500 avoid qt prolonging drugs follow repeat ekg. BPH Flomax and Proscar DVT prophylaxis On Eliquis Disposition Patient is admitted with multiple issues including chest pain, acute on chronic systolic heart failure, pneumonia, possible acute cholecystitis. Currently on IV antibiotics; requires close monitoring. DNR/DNI. Discussed with patient and patient's over the phone. Time spent evaluating patient, direct bedside care, chart review, placing orders, interpretation of diagnostic studies, discussion with consultants, patient, and family members, as well as other required patient management activities is 55 minutes. Please note the above document was generated using voice recognition software. It may contain grammatical, syntax or spelling errors. Any formal questions or concerns about the content, text or information contained within the body of this dictation should be directly addressed to the provider for clarification Admission and Anticipated Discharge Date Admission Date: April 22, 2023 Subjective Patient seen and examined at bedside. He appears to be tired. He reports pain in left lower quadrant of the abdomen. Denies any chest pain at the present time. Review of Systems Review of Systems: All systems reviewed & are unremarkable except as noted in Subjective Physical Exam Physical Exam: Constitutional: WD/WN, vitals as above, NAD, sitting up in bed, pleasant, conversing easily Respiratory: normal respiratory effort, lungs clear to auscultation, no wheeze, rales, rhonchi. Normal insp/exp effort, no accessory muscle use Cardiovascular: RRR, no murmur, no edema Vessels: no JVD or carotid bruit Chest: normal inspection of chest Abdomen: Tenderness present in left lower quadrant Musculoskeletal: no cyanosis or clubbing, extremities motor strength 5/5 Skin: no rashes, warm and dry normal turgor Neurologic: PERRL, EOMI, accommodation nl, no face palsy, no dysarthria CN's II- XI intact bilaterally and moves all extremities Psychiatric: A+Ox3, euthymic affect Results & Data Results & Data Vital Signs (Past 12 Hours) Vital Signs Temp Pulse Resp BP BP BP Pulse Ox 04/22/23 15:32 36.5 C 107 H 32 H 114/63 95 04/22/23 14:23 102 H 20 120/71 97 04/22/23 08:22 04/22/23 08:22 36.9 C 110 H 20 126/76 98 04/22/23 08:22 98 04/22/23 06:08 16 117/67 98 04/22/23 05:00 16 135/86 97 04/22/23 04:30 16 133/76 97 Pulse Ox O2 Del Method O2 Del Method 04/22/23 15:32 Room Air 04/22/23 14:23 Room Air 04/22/23 08:22 98 Room Air 04/22/23 08:22 Room Air 04/22/23 08:22 Room Air 04/22/23 06:08 04/22/23 05:00 04/22/23 04:30 (1) Chest pain Chest pain type: unspecified Qualified Code(s): R07.9 - Chest pain, unspecified
[2023-04-22] MEDS: PROMETHAZINE HCL 6.25 MG in SODIUM CHLORIDE 0.9% 50 ML IV PRN (16:57)
--- NOTE | 2023-04-22 18:31 | Ultrasound Report ---
US liver CLINICAL HISTORY: Rule out acute cholecystitis COMPARISON STUDY: CT of the abdomen and pelvis performed earlier today. FINDINGS: Liver is sonographically normal. There is no biliary ductal dilatation. The common bile maximilian t measures 4 mm in caliber. The gallbladder is distended. There are multiple gallstones within the ga llbladder. Moderate gallbladder wall thickening is present. The patient was tender over the epigastri c region. There is no definite sonographic Moore sign. No right hydronephrosis. Pancreas is unremark able by sonography. Head and tail are partially obscured. IMPRESSION: Cholelithiasis with distended gallbladder and moderate gallbladder wall thickening. No de finite sonographic Moore sign. However, the CT and sonographic findings are highly suggestive of acu te cholecystitis. ACT 112: Negative or not required by law. Electronically signed by: Dawood John M.D. 04/22/2023 6:28 PM
[2023-04-22] MEDS: TAMSULOSIN HCL 0.4 MG CAP PO SCH (20:30)
[2023-04-22] MEDS ORDERED: GLUCOSE 40% GEL 15 GM TUBE PO PRN (21:41)
[2023-04-22] MEDS ORDERED: DEXTROSE 50% 50 ML SYRINGE IV PRN (21:41)
[2023-04-22] MEDS ORDERED: GLUCAGON FOR INJ 1 MG VIAL SQ PRN (21:41)
[2023-04-22] MEDS ORDERED: GLUCOSE 10 TAB/TUBE PO PRN (21:41)
[2023-04-22] MEDS ORDERED: CARBOHYDRATES FOR HYPOGLYCEMIA PO PRN (21:41)
[2023-04-22] MEDS: INSULIN ASPART PER UNIT CHARGE SC STA (22:34)
[2023-04-23] MEDS ORDERED: MoRPHine SULFATE 4 MG/ML 1 ML CARP\\VIAL IV PRN (00:59)
[2023-04-23] MEDS: ACETAMINOPHEN 1,000 MG/100 ML VIAL IV PRN (01:27)
--- NOTE | 2023-04-23 06:36 | Electrocardiogram Report ---
Test Reason : Blood Pressure : / mmHG Vent. Rate : 086 BPM Atrial Rate : 000 BPM P-R Int : 000 ms QRS Dur : 168 ms QT Int : 418 ms P-R-T Axes : 000 -57 124 degrees QTc Int : 500 ms Atrial fibrillation Left axis deviation Left bundle branch block Abnormal ECG When compared with ECG of 03-APR-2023 01:31, No significant change Confirmed by Rickey Richardson ([id number]) on 04/23/2023 6:35:30 AM Referred By: REFERRED SELF Confirmed By:Rickey Richardson
[2023-04-23 06:46] LABS: Albumin Globulin Ratio 1.3 (0.9-2); BUN Creatinine Ratio 24.8 (10-20); Bilirubin Direct 0.4 mg/dl (0-0.2); Bilirubin,Total 2.1 mg/dl (0.2-1.0); Creatinine Clr Calc Pharmacy 56.4 ml/min; Est GFR (African American) 79.9 ml/min; Est GFR (Non-African American) 68.9 ml/min; Magnesium 1.9 mg/dl (1.7-2.4); Potassium 4.1 mmol/L (3.5-5.1)
[2023-04-23 06:50] LABS: Hematocrit (blood only) 42.5 % (42.0-52.0); Hemoglobin 13.5 g/dl (14.0-18.0); Mean Corpuscular Hemoglobin 27.4 pg (25.0-34.0); Mean Corpuscular Hgb Conc 31.8 g/dL (32.0-36.0); Mean Corpuscular Volume 86.2 fL (80.0-100.0); Mean Platelet Volume 10.7 fL (9.4-12.4); Platelet Count 286 K/uL (130-400); RDW Coefficient of Variation 15.8 % (11.5-14.5); RDW Standard Deviation 49.8 fL (36.4-46.3); Red Blood Count 4.93 M/uL (4.70-6.10); White Blood Count 33.36 K/ul (4.8-10.8)
[2023-04-23 06:51] LABS: Basophils # (auto) 0.11 K/uL (0.00-0.20); Basophils % (auto) 0.3 %; Immature Granulocytes # (auto) 0.54 K/uL (0.01-0.20); Immature Granulocytes % (auto) 1.6 %; Lymphocytes % (auto) 2.7 %; Monocytes # (auto) 2.01 K/uL (0.11-0.59); Neutrophils % (auto) 89.4 %; Poikilocytosis Present; Polychromasia 1+; Toxic Vacuolation 1+
[2023-04-23] MEDS ORDERED: MEROPENEM 1,000 MG in 0.9 % SODIUM CHLORIDE 60 ML IV SCH (08:00)
[2023-04-23] MEDS: INSULIN ASPART PER UNIT CHARGE SC SCH (08:15)
[2023-04-23 08:53] LABS: Estimated Average Glucose 186 mg/dl; Hemoglobin A1C 8.1 % (4.5-5.6)
[2023-04-23] MEDS ORDERED: FUROSEMIDE INJ 20 MG/2 ML VIAL IV SCH (09:00)
--- NOTE | 2023-04-23 11:49 | Cardiology Progress Note ---
Date of Service April 23, 2023 Assessment & Plan (1) Chest pain: (2) Ischemic cardiomyopathy: (3) Left bundle branch block (LBBB): (4) Permanent atrial fibrillation: Plan: Patient without ongoing symptoms to suggest angina or heart failure decompensation. Serial high-sensitivity troponin levels are negative. At rest his ventricular rates with regards to his atrial fibrillation are relatively well-controlled, but elevated with minimal activity such as eating lunch. CT of the chest suggestive of possible pneumonia and he is being treated for such. Leukocytosis now noted on 04/23/22, WBC count of 33K. Bilirubin elevated. CT suggestive of possible cholecystitis. He described abdominal discomfort at the time of his assessment hospitalist service and a CT of the abdomen pelvis has been requested. As well as be helpful as there was an echo-free space noted on limited imaging of the liver at the time of his echocardiogram, possibly have a hepatic cyst, but this will be more completely visualized on the CT. Continue current cardiac medications including aspirin, spironolactone, atorvastatin, lisinopril, metoprolol succinate. Eliquis on hold, most recent dose was on 04/23/23 at 8:14 am. Depending on course , may need to start heparin bridge 12 hours after previous Eliquis dose. Await general surgery input. Pt considered to be at high risk for anesthesia, given underlying ischemic cardiomyopathy, LVEF 25%, [place] territory [place] in 1994, however, he is well compensated as present from a cardiac perspective. Keep NPO. Admission and Anticipated Discharge Date Admission Date: April 22, 2023 Subjective Patient seen in cardiology follow up. Spouse , Елена, at the bedside. Telemetry reveals AF with ventricular rate of about 100 bpm. Patient with right sided abdominal pain, that is worse than when I saw him yesterday. CT of the abd/ pelvis raises concerns of cholecystitis. He is afebrile. Physical Exam Physical Exam: Temp Pulse Resp BP Pulse Ox O2 Del Method 36.8 C 93 H 18 110/67 96 Room Air 04/23/23 11:21 04/23/23 11:21 04/23/23 11:21 04/23/23 11:21 04/23/23 11:21 04/23/23 11:21 General: Frail, ill in appearance Eyes: conjunctiva are pink and non-injected, sclera clear Neck: normal jugular venous pulse, no hepatojugular reflux Chest: normal shape and normal respiratory effort Lungs: clear to auscultation and percussion Cardiac Exam: -Irregular rhythm, no murmurs, no edema, no JVD Abdomen: right sided tenseness on palpation Musculoskeletal: no gait disturbance, no weakness Extremities: no edema and no cyanosis, well-healing incisions arthroscopic left knee surgery Neuro:awake, conversant, follows commands, no focal motor deficits Psych: appropriate affect and insight. Results & Data Vital Signs (Past 12 Hours) Vital Signs Temp Pulse Resp BP Pulse Ox O2 Del Method O2 Del Method 04/23/23 11:21 36.8 C 93 H 18 110/67 96 Room Air 04/23/23 08:31 36.9 C 96 H 17 108/69 96 Room Air 04/23/23 08:13 Room Air 04/23/23 03:08 36.7 C 79 20 106/74 96 Room Air Laboratory Results Cardiac Enzymes 04/22/23 04/23/23 Range/Units 21:12 05:28 AST 62 H (13-39) U/L Troponin I High Sens 18.2 D (0-20) pg/ml CBC 04/23/23 Range/Units 05:28 WBC 33.36 H* (4.8-10.8) K/ul RBC 4.93 (4.70-6.10) M/uL Hgb 13.5 L (14.0-18.0) g/dl Hct 42.5 (42.0-52.0) % Plt Count 286 (130-400) K/uL Neut # (Auto) 29.80 H (1.40-6.50) K/uL Lymph # (Auto) 0.90 L (1.20-3.40) K/uL [place] # (Auto) 2.01 H (0.11-0.59) K/uL Eos # (Auto) 0.00 (0.00-0.50) K/uL Baso # (Auto) 0.11 (0.00-0.20) K/uL Comprehensive Metabolic Panel 04/23/23 Range/Units 05:28 Sodium 134 L (136-145) mmol/L Potassium 4.1 (3.5-5.1) mmol/L Chloride 96 L (98-107) mmol/L Carbon Dioxide 28 (21-32) mmol/L BUN 25 H (6-23) mg/dl Creatinine 1.01 (0.6-1.4) mg/dl Glucose 187 H (70-99(Fasting)) mg/dl Calcium 10.0 (8.6-10.3) mg/dl Direct Bilirubin 0.4 H (0-0.2) mg/dl AST 62 H (13-39) U/L ALT 54 H (7-52) U/L Alkaline Phosphatase 83 (34-104) U/L Total Protein 7.0 (6.0-8.3) gm/dl Albumin 4.0 (3.4-5.0) gm/dl Intake and Output 04/22/23 04/23/23 04/23/23 22:59 06:59 14:59 Intake Total 170.25 / 471.00 150.25 / 471.00 Output Total 225 / 1375 300 / 1375 Balance -54.75 / -904.00 -149.75 / -904.00 Intake: IV 150.25 / 451.00 150.25 / 451.00 Acetaminophen 1,000 mg In 100 100 / 100 ml @ 400 mls/hr IV Q8H PRN Rx#: [id number] Doxycycline Hyclate 100 mg In 100 / 200 Dextrose 5% Mini-B 100 ml @ 50 mls/hr IV Q12H [facility] Rx#:[id number] Promethazine HCl 6.25 mg In 50.25 / 100.50 50.25 / 100.50 Sodium Chloride 0.9% 50 ml @ 201 mls/hr IV Q6H PRN Rx#: [id number] Oral 20 / 20 Output: Urine 225 / 1375 300 / 1375 Other: Weight 81.6 kg Weight Measurement Method Built in [facility] (1) Chest pain Chest pain type: unspecified Qualified Code(s): R07.9 - Chest pain, unspecified
[2023-04-23] MEDS: MEROPENEM 500 MG in SYRINGE 0 ML IV SCH (12:04)
--- NOTE | 2023-04-23 12:09 | Hospitalist Progress Note ---
Date of Service April 23, 2023 Assessment & Plan (1) Chest pain: Plan: [id number]-male with past medical history significant for chronic systolic CHF EF 25%, CAD, hypertension, hyperlipidemia, history of CVA, diabetes diet- controlled, chronic anemia baseline hemoglobin 13, BPH, skin cancer per records history of A-fib on Eliquis presents to the hospital with chest pain. The chest pain was left-sided; 3 to 5 x 10 in severity with radiation to the back of the neck. Patient also had episode of nausea and vomiting. Acute Cholecystitis Possible Aspiration pneumonia Patient had reported abdominal pain on admission. CT chest on admission personally reviewed; no PE. Interseptal thickening concerning for pulmonary edema. Also has subtle airspace opacities on right upper lobe and left lower lobe CT abdomen concerning for acute cholecystitis. Right upper quadrant confirms acute cholecystitis Leukocytosis present Started on meropenem. Continue on doxycycline. Discussed with surgery; will follow-up on recommendation As per cardiology; patient is considered high risks for anesthesia given underlying ischemic cardiomyopathy, low EF, history of [place] in 1994. However, patient is well compensated from cardiac perspective at present time. Last dose of Eliquis was today morning. Will hold off on Eliquis; placed on Lovenox from 8 PM tonight. Plan is to hold Lovenox 12 hours prior to surgery Chest pain Ischemic cardiomyopathy ACS ruled out History of remote [place] territory [place] in 1994 resulting in ischemic cardiomyopathy. He presents with sudden onset of chest pain EKG on admission shows sinus rhythm with LBBB High sensitive troponin negative Echocardiogram shows EF of 20 to 25% with severely dilated left ventricle. Cardiology consulted; continue on aspirin, statin, beta-lux, spironolactone Monitor on telemetry Acute on chronic systolic CHF CT chest showing pulmonary edema Denies any shortness of breath Saturating okay on room air Patient was given IV Lasix. Appears well compensated today Continue metoprolol succinate and lisinopril History of CAD On aspirin statin and beta-lux History of A-fib On metoprolol succinate and Eliquis Prolonged qtc 500 avoid qt prolonging drugs follow repeat ekg. BPH Flomax and Proscar DVT prophylaxis On Eliquis Disposition Patient is admitted with multiple issues including chest pain, acute on chronic systolic heart failure, pneumonia, possible acute cholecystitis. Currently on IV antibiotics; requires close monitoring. DNR/DNI. Provided update to the spouse at bedside. Answer questions/queries. Time spent evaluating patient, direct bedside care, chart review, placing orders, interpretation of diagnostic studies, discussion with consultants, patient, and family members, as well as other required patient management activities is 60 minutes. Please note the above document was generated using voice recognition software. It may contain grammatical, syntax or spelling errors. Any formal questions or concerns about the content, text or information contained within the body of this dictation should be directly addressed to the provider for clarification Admission and Anticipated Discharge Date Admission Date: April 22, 2023 Subjective Patient seen at bedside. He appears tired and lethargic. Reports of abdominal pain and discomfort. Vitals remained stable; saturating well on room air. Review of Systems Review of Systems: All systems reviewed & are unremarkable except as noted in Subjective Physical Exam Physical Exam: Constitutional: Appears tired. Not in significant distress. Respiratory: Bilateral vesicular breath sound Cardiovascular: RRR, no murmur, no edema Vessels: no JVD or carotid bruit Chest: normal inspection of chest Abdomen: Tenderness present in right upper quadrant and epigastric region. Musculoskeletal: no cyanosis or clubbing, extremities motor strength 5/5 Skin: no rashes, warm and dry normal turgor Neurologic: PERRL, EOMI, accommodation nl, no face palsy, no dysarthria CN's II- XI intact bilaterally and moves all extremities Results & Data Results & Data Vital Signs (Past 12 Hours) Vital Signs Temp Pulse Resp BP Pulse Ox O2 Del Method O2 Del Method 04/23/23 11:21 36.8 C 93 H 18 110/67 96 Room Air 04/23/23 08:31 36.9 C 96 H 17 108/69 96 Room Air 04/23/23 08:13 Room Air 04/23/23 03:08 36.7 C 79 20 106/74 96 Room Air (1) Chest pain Chest pain type: unspecified Qualified Code(s): R07.9 - Chest pain, unspecified
--- NOTE | 2023-04-23 13:05 | Surgery Consultation ---
Date of Consultation April 23, 2023 Assessment & Plan (1) Cholecystitis with cholelithiasis: IV abx npo IVF will check HIDA poor surgical candidate but if pain continues and obstructed duct by HIDA will need either lap josue or perc drain hold eliquis at least 72 hours soonest procedure could be done is 04/26 History of Present Illness Attending Physician: Sal Ashraf MD History of Present Illness This is [id number]-male with past medical history significant for chronic systolic CHF EF 25%, CAD, hypertension, history of CVA, and history of A-fib on Eliquis. Patient admitted with left-sided chest pain who likely has pneumonia and CT scan suggestive of acute cholecystitis. He has had associated nausea and vomiting. Allergies Allergy/AdvReac Type Severity Reaction Status Date / Time Penicillins Allergy Severe TONGUE Verified 04/22/23 03:00 SWELLING amoxicillin [From Augmentin] AdvReac Unknown Vomiting Verified 04/22/23 03:00 clavulanic acid AdvReac Unknown Vomiting Verified 04/22/23 03:00 [From Augmentin] Home Medications Medication Instructions Recorded Confirmed Type atorvastatin 80 mg tablet 80 mg PO QAM 11/26/18 04/22/23 History aspirin 81 mg tablet,delayed 81 mg PO QAM 01/03/19 04/22/23 History release metoprolol succinate 50 mg 50 mg PO QAM 07/26/20 04/22/23 History tablet,extended release 24 hr apixaban 5 mg tablet (Eliquis) 5 mg PO BID #60 tabs 02/07/21 04/22/23 Rx furosemide 20 mg tablet 20 mg PO QAM #30 tabs 02/07/21 04/22/23 Rx lisinopril 2.5 mg tablet 2.5 mg PO QAM 05/30/21 04/22/23 History spironolactone 25 mg tablet 12.5 mg PO QAM 05/30/21 04/22/23 History finasteride 5 mg tablet 5 mg PO QAM 08/02/22 04/22/23 History tamsulosin 0.4 mg capsule 0.4 mg PO HS 08/02/22 04/22/23 History Patient History Medical History (Updated 04/23/23 @ 13:06 by Zbigniew Alfaro MD) Cholecystitis with cholelithiasis BPH with obstruction/lower urinary tract symptoms Degenerative disc disease Arthritis History of pyloric stenosis as a child Diabetes mellitus, type 2 NO MEDS History of skin cancer Transient ischemic attack (TIA) AROUND 2019? *NO PROBLEMS FROM EVENT HTN (hypertension) Systolic CHF FOLLOWS DR. LR>PT UNSURE OF CARDIAC HX Ischemic cardiomyopathy CAD (coronary artery disease) 1994-anterior wall [place], no intervention Dyslipidemia DM type 2 (diabetes mellitus, type 2) Surgical History History of colonoscopy History of repair of pyloric stenosis History of tooth extraction History of cardiac cath 1994 History of cataract surgery RT/LEFT History of appendectomy Family History Sister Multiple myeloma Brother Heart disease Other No family history of adverse response to anesthesia Social History Smoking Status: Never smoker Second Hand Exposure: No; Do You Dip or Chew Tobacco: No; Tobacco Cessation Education Requested by Patient: No Hx Alcohol Use: Yes Alcohol type: hard liquor Hx Substance Use: No Preferred Language: Citizen Of [place] Communication Ability: Effective Qualitative Field Coordinator Required: No Beliefs That Will Affect Care: None marital status: Current Living Situation: Spouse Other Information That Helps Us Care for You: No Feels Safe at Home: Yes Safety Concerns: Feels Safe At This Time Assistive Devices: Denture - Upper Review of Systems Constitutional: no fever and no chills Eyes: no problem reported Ear, Nose, Mouth, Throat: no problem reported Respiratory: no cough and no dyspnea Cardiovascular: + chest pain and + dyspnea Gastrointestinal: + abdominal pain, + nausea and + vomitin g; no diarrhea/loose stools Genitourinary: no dysuria Musculoskeletal: no back pain Integumentary: no problem reported Neurologic: + generalized weakness; no localized wea kness Psychiatric: no behavioral changes Endocrine: + fatigue Hematologic / Lymphatic: + easy bleeding and + easy bruising Physical Exam Constitutional: WD/WN, vitals as above Eyes: PERRL, conjunctivae normal, anicteric sclerae ENMT: external ear and nose normal, oropharynx normal Neck: trachea midline Respiratory: no respiratory distress Auscultation: + diminished lung sounds Cardiovascular: Rate/Rhythm: regular rate and + irregularly irregular Gastrointestinal (Abdomen): Inspection/Auscultation: abdomen normal to inspection and normal bowel sounds; abdomen not distended Percussion/Palpation: + abdomen tender and abdomen soft; no guarding and abdomen not rigid Musculoskeletal: Head/Neck/Chest: normocephalic and head atraumatic Skin: no rashes, warm and dry Results & Data Vital Signs (Past 12 Hours) Vital Signs Temp Pulse Resp BP Pulse Ox O2 Del Method O2 Del Method 04/23/23 11:21 36.8 C 93 H 18 110/67 96 Room Air 04/23/23 08:31 36.9 C 96 H 17 108/69 96 Room Air 04/23/23 08:13 Room Air 04/23/23 03:08 36.7 C 79 20 106/74 96 Room Air Diagnostic Findings CLINICAL HISTORY: left lower quadrant pain, r/o diverticulitis COMPARISON STUDY: None. TECHNIQUE: Following IV administration of 84 mL of Optiray, axial images of the abdomen and pelvis were obtained from the lung bases to the proximal femurs. Images were reviewed in the axial, sagittal, and coronal planes. IV contrast was administered without complication. Automated exposure control was utilized for the study. A dose lowering technique was utilized adhering to the principles of ALARA. CT DOSE: 1148.99 mGy.cm FINDINGS: No pneumatosis, free air or portal venous gas is present. The gallbladder is moderately distended. There is moderate pericholecystic stranding. Contents within the gallbladder are present. There is no biliary or pancreatic ductal dilatation. No hepatic lesions are present. Spleen, adrenal glands and pancreas are unremarkable. There is excreted contrast within the collecting systems, ureters and bladder from recent contrast-enhanced chest CT. Bladder wall is irregular and trabeculated with several small bladder diverticula. The findings are chronic. There is colonic diverticulosis without evidence for acute diverticulitis. Caliber and wall thickness of small and large bowel are normal. Water attenuation bilateral renal lesions measure up to 4.7 cm. These reflect cysts. Several subcentimeter renal lesions are too small to characterize. The appendix is visualized. There is no right lower quadrant inflammation. No lymphadenopathy. IMPRESSION: 1. Cholelithiasis with gallbladder distention and pericholecystic stranding. The findings are highly suggestive of acute cholecystitis. 2. No biliary ductal dilatation. 3. Colonic diverticulosis. No evidence for acute diverticulitis. No bowel obstruction.
--- NOTE | 2023-04-23 15:56 | Nuclear Medicine Report ---
NUCLEAR MEDICINE HEPATOBILIARY SCAN HISTORY: acute cholecystitis look for duct obstruction COMPARISON: None. TECHNIQUE: Immediately following the intravenous administration of mCi Tc-99m Choletec, dynamic anter ior abdominal imaging was performed for total 45 minutes. The patient was unable to complete the enti re 60 minutes of imaging. FINDINGS: Uniform hepatic tracer accumulation is shown. Prompt intrahepatic biliary excretion is seen. The comm on bile duct and small bowel are visualized by 15 minutes. Therefore, no evidence for common bile maximilian t obstruction. The gallbladder is not identified during the initial 45 minutes of imaging. IMPRESSION: 1. The gallbladder was not identified during the initial 45 minutes of imaging. However, the patient was unable to complete the entire examination. Therefore, these findings are suspicious but not defin itive for cystic duct obstruction. 2. No evidence for common bile duct obstruction. ACT 112: Negative or not required by law. Electronically signed by: Edward Phoenix M.D. 04/23/2023 3:54 PM
[2023-04-23] MEDS: ENOXAPARIN 80 MG/0.8 ML SYR SQ SCH (20:11)
[2023-04-24 06:41] LABS: Hematocrit (blood only) 39.1 % (42.0-52.0); Hemoglobin 12.6 g/dl (14.0-18.0); Mean Corpuscular Hemoglobin 27.2 pg (25.0-34.0); Mean Corpuscular Hgb Conc 32.2 g/dL (32.0-36.0); Mean Corpuscular Volume 84.4 fL (80.0-100.0); Mean Platelet Volume 10.3 fL (9.4-12.4); Platelet Count 238 K/uL (130-400); RDW Coefficient of Variation 15.9 % (11.5-14.5); RDW Standard Deviation 48.9 fL (36.4-46.3); Red Blood Count 4.63 M/uL (4.70-6.10); White Blood Count 29.25 K/ul (4.8-10.8)
[2023-04-24 06:52] LABS: Albumin Globulin Ratio 1.2 (0.9-2); Albumin Level 3.4 gm/dl (3.4-5.0); BUN Creatinine Ratio 39.4 (10-20); Bilirubin,Total 3.2 mg/dl (0.2-1.0); Calcium 9.6 mg/dl (8.6-10.3); Creatinine Clr Calc Pharmacy 54.8 ml/min; Est GFR (African American) 77.1 ml/min; Est GFR (Non-African American) 66.6 ml/min; Globulin 2.8 gm/dl (2.5-4.0); Total Protein 6.2 gm/dl (6.0-8.3)
[2023-04-24 07:05] LABS: Basophils # (auto) 0.07 K/uL (0.00-0.20); Basophils % (auto) 0.2 %; Echinocytes 1+; Immature Granulocytes # (auto) 0.47 K/uL (0.01-0.20); Immature Granulocytes % (auto) 1.6 %; Lymphocytes # (auto) 0.58 K/uL (1.20-3.40); Monocytes # (auto) 1.86 K/uL (0.11-0.59); Monocytes % (auto) 6.4 %; Neutrophils # (auto) 26.27 K/uL (1.40-6.50); Neutrophils % (auto) 89.8 %; Ovalocytes 1+
--- NOTE | 2023-04-24 10:08 | Surgery Progress Note ---
Date of Service April 24, 2023 Assessment & Plan (1) Cholecystitis with cholelithiasis: Plan: not responding to abx well OR intervention likely not safe at this point recommend IR perc cholecystostomy tube recommend transfer to tertiary center Admission and Anticipated Discharge Date Admission Date: April 22, 2023 Subjective still having pain npo Review of Systems Constitutional: no fever and no chills Respiratory: + dyspnea Cardiovascular: no chest pain Gastrointestinal: + abdominal pain and + nausea; no vomiti ng and no diarrhea/loose stools Genitourinary: no dysuria Musculoskeletal: + back pain Neurologic: + generalized weakness; no localized wea kness Psychiatric: no behavioral changes Physical Exam Constitutional: WD/WN, vitals as above Eyes: PERRL, conjunctivae normal, anicteric sclerae ENMT: external ear and nose normal, oropharynx normal Neck: trachea midline Respiratory: normal respiratory effort, lungs clear to auscultation Cardiovascular: Rate/Rhythm: + irregularly irregular Gastrointestinal (Abdomen): Inspection/Auscultation: abdomen normal to inspection, + abdomen distended and normal bowel sounds Percussion/Palpation: + abdomen tender, + guarding and abdomen soft; abdomen not rigid Musculoskeletal: Head/Neck/Chest: normocephalic and head atraumatic Results & Data Vital Signs (Past 12 Hours) Vital Signs Temp Pulse Resp BP Pulse Ox O2 Del Method 04/24/23 07:45 36.5 C 96 H 18 106/70 94 Room Air 04/24/23 04:05 36.5 C 94 H 19 105/69 92 Room Air 04/23/23 23:55 37.1 C 98 H 18 113/66 92 Room Air Diagnostic Findings NUCLEAR MEDICINE HEPATOBILIARY SCAN HISTORY: acute cholecystitis look for duct obstruction COMPARISON: None. TECHNIQUE: Immediately following the intravenous administration of mCi Tc-99m Choletec, dynamic anterior abdominal imaging was performed for total 45 minutes. The patient was unable to complete the entire 60 minutes of imaging. FINDINGS: Uniform hepatic tracer accumulation is shown. Prompt intrahepatic biliary excretion is seen. The common bile duct and small bowel are visualized by 15 minutes. Therefore, no evidence for common bile duct obstruction. The gallbladder is not identified during the initial 45 minutes of imaging. IMPRESSION: 1. The gallbladder was not identified during the initial 45 minutes of imaging. However, the patient was unable to complete the entire examination. Therefore, these findings are suspicious but not definitive for cystic duct obstruction. 2. No evidence for common bile duct obstruction.
--- NOTE | 2023-04-24 11:11 | Electrocardiogram Report ---
Test Reason : Blood Pressure : / mmHG Vent. Rate : 105 BPM Atrial Rate : 144 BPM P-R Int : 000 ms QRS Dur : 170 ms QT Int : 408 ms P-R-T Axes : 000 -51 126 degrees QTc Int : 539 ms Atrial fibrillation Left axis deviation Non-specific intra-ventricular conduction delay aberrant conduction Abnormal ECG Confirmed by Gregor Dietz ([id number]) on 04/24/2023 11:10:48 AM Referred By: REFERRED SELF Confirmed By:Vicente Dietz
[2023-04-24] MEDS: SODIUM CHLORIDE 0.9% 500 ML IV ONE (11:50)
--- NOTE | 2023-04-24 12:50 | Cardiology Progress Note ---
Date of Service April 24, 2023 Assessment & Plan (1) Cholecystitis with cholelithiasis: (2) Chest pain: (3) Ischemic cardiomyopathy: (4) Left bundle branch block (LBBB): (5) Permanent atrial fibrillation: Plan: General surgery input noted and appreciated with the patient findings suggestive of cholecystitis with cholelithiasis ongoing leukocytosis despite antibiotic therapy. Complex cardiac history as noted below. Surgery recommends transfer to tertiary center for consideration of percutaneous cholecystostomy tube by interventional radiology. Pt considered to be at high risk for anesthesia, given underlying ischemic cardiomyopathy, LVEF 25%, LAD territory [place] in 1994. Compensated from a volume status standpoint, but most recent blood pressure trending lower at 85/43 Continue prior to hospital treatment with aspirin, atorvastatin, metoprolol succinate 50 mg daily. Hold lisinopril, spironolactone. Eliquis on hold, most recent dose was on 04/23/23 at 8:14 am. Received Lovenox bridge doses on 04/23/2023 at 20: 11 and again on 04/24/2023 at 7:40 AM Holding additional doses pending anticipated procedure at this time. Patient n.p.o., efforts underway to arrange transfer to tertiary center. Admission and Anticipated Discharge Date Admission Date: April 22, 2023 Subjective Patient seen in cardiology follow-up. Denies shortness of breath. Ongoing abdominal discomfort. Ill in appearance. Afebrile. Telemetry reveals atrial fibrillation with ventricular rate in the range of 90 to 100 bpm. Physical Exam Physical Exam: Temp Pulse Resp BP Pulse Ox O2 Del Method 36.6 C 99 H 18 85/43 L 92 Room Air 04/24/23 11:46 04/24/23 11:46 04/24/23 11:46 04/24/23 11:46 04/24/23 11:46 04/24/23 11:46 General: Frail, ill in appearance Eyes: conjunctiva are pink and non-injected, sclera clear Neck: normal jugular venous pulse, no hepatojugular reflux Chest: normal shape and normal respiratory effort Lungs: clear to auscultation and percussion Cardiac Exam: -Irregular rhythm, no murmurs, no edema, no JVD Abdomen: right sided tenderness on palpation Musculoskeletal: no gait disturbance, no weakness Extremities: no edema and no cyanosis, well-healing incisions arthroscopic left knee surgery Neuro:awake, conversant, follows commands, no focal motor deficits Psych: appropriate affect and insight. Results & Data Vital Signs (Past 12 Hours) Vital Signs Temp Pulse Resp BP Pulse Ox O2 Del Method 04/24/23 11:46 36.6 C 99 H 18 85/43 L 92 Room Air 04/24/23 07:45 36.5 C 96 H 18 106/70 94 Room Air 04/24/23 04:05 36.5 C 94 H 19 105/69 92 Room Air (2) Chest pain Chest pain type: unspecified Qualified Code(s): R07.9 - Chest pain, unspecified
--- NOTE | 2023-04-24 14:21 | Hospitalist Progress Note ---
Date of Service April 24, 2023 Assessment & Plan (1) Chest pain: Plan: [id number] with past medical history significant for chronic systolic CHF EF 25%, CAD, hypertension, hyperlipidemia, history of CVA, diabetes diet- controlled, chronic anemia baseline hemoglobin 13, BPH, skin cancer per records history of A-fib on Eliquis presents to the hospital with chest pain and abdominal discomfort. Patient also had episodes of nausea and vomiting. Acute Cholecystitis Possible Aspiration pneumonia Patient had reported abdominal pain on admission. CT chest on admission personally reviewed; no PE. Interseptal thickening concerning for pulmonary edema. Also has subtle airspace opacities on right upper lobe and left lower lobe CT abdomen concerning for acute cholecystitis. Right upper quadrant confirms acute cholecystitis HIDA scangallbladder was not identified during the 45 minutes of imaging. Unable to complete the entire examination. No evidence of CBD obstruction. WBC 33,000 > 29,000 Continue on meropenem. Continue on doxycycline for possible atypical pneumonia. As per cardiology; patient is considered high risks for anesthesia given underlying ischemic cardiomyopathy, low EF, history of [place] in 1994. However, patient is well compensated from cardiac perspective at present time. Last dose of Eliquis on April 23, 2023 at 8 AM Currently on Lovenox bridge. Discussed with from [facility] transfer center; [facility]; [facility] Discussion was also done with GI regarding placement of Axios stent; no capabilities at the hospital Discussed with Dr. Leal at [facility]; discussed with interventional radiology as well. Agree for transferawaiting bed MRCP ordered as per recommendation by interventional radiology at [facility]. Total bilirubin elevated today as well as AST, ALT and ALP Chest pain Ischemic cardiomyopathy ACS ruled out History of remote L[place] territory [place] in 1994 resulting in ischemic cardiomyopathy. He presents with sudden onset of chest pain EKG on admission shows sinus rhythm with LBBB High sensitive troponin negative Echocardiogram shows EF of 20 to 25% with severely dilated left ventricle. Cardiology consulted; continue on aspirin, statin, beta-lux, spironolactone Monitor on telemetry Acute on chronic systolic CHF CT chest on admission showed mild pulmonary edema Denies any shortness of breath Saturating well on room air Patient was given IV Lasix Apr. Appears well compensated today Continue metoprolol succinate and lisinopril History of CAD On aspirin statin and beta-lux History of A-fib On metoprolol succinate On Lovenox Prolonged qtc 500 avoid qt prolonging drugs follow repeat ekg. BPH Flomax and Proscar DVT prophylaxis On Eliquis Disposition Patient [facility] and [facility]. Awaiting bed placement. DNR/DNI. Provided update to the spouse at bedside. Answer questions/queries. Time spent evaluating patient, direct bedside care, chart review, placing orders, interpretation of diagnostic studies, discussion with consultants, patient, and family members, as well as other required patient management activities is 90 minutes. Please note the above document was generated using voice recognition software. It may contain grammatical, syntax or spelling errors. Any formal questions or concerns about the content, text or information contained within the body of this dictation should be directly addressed to the provider for clarification Admission and Anticipated Discharge Date Admission Date: April 22, 2023 Subjective Patient seen and examined at bedside. He reports abdominal pain in right upper quadrant. Blood pressure on softer side; given 500 cc normal saline bolus. Review of Systems Review of Systems: All systems reviewed & are unremarkable except as noted in Subjective Physical Exam Physical Exam: Constitutional: Appears tired. Not in significant distress. Respiratory: Bilateral vesicular breath sound Cardiovascular: RRR, no murmur, no edema Vessels: no JVD or carotid bruit Chest: normal inspection of chest Abdomen: Tenderness present in right upper quadrant and epigastric region. Musculoskeletal: no cyanosis or clubbing, extremities motor strength 5/5 Skin: no rashes, warm and dry normal turgor Neurologic: PERRL, EOMI, accommodation nl, no face palsy, no dysarthria CN's II- XI intact bilaterally and moves all extremities Results & Data Results & Data Vital Signs (Past 12 Hours) Vital Signs Temp Pulse Resp BP Pulse Ox O2 Del Method 04/24/23 11:46 36.6 C 99 H 18 85/43 L 92 Room Air 04/24/23 07:45 36.5 C 96 H 18 106/70 94 Room Air 04/24/23 04:05 36.5 C 94 H 19 105/69 92 Room Air (1) Chest pain Chest pain type: unspecified Qualified Code(s): R07.9 - Chest pain, unspecified
--- NOTE | 2023-04-24 14:55 | Discharge Summary ---
Date of Service April 24, 2023 Admission HPI Per Admitting Provider [id number] with past medical history significant for chronic systolic CHF EF 25%, CAD, hypertension, hyperlipidemia, history of CVA, diabetes diet- controlled, chronic anemia baseline hemoglobin 13, BPH, skin cancer per records history of A-fib on Eliquis who recently in the hospital initially thought to be left septic arthritis of the knee but it was ruled out and thought was pseudogout treated with prednisone comes because of chest pain. Patient states he was watching TV at 9:30 PM when he had left-sided chest pain 3-5/10 in severity and possible radiation to back of the neck. He also felt diaphoretic and felt warm. Thinks he had low-grade temperature. Denies any shortness of breath. In the ER he had episode of nausea and vomiting. Denies any headache. Earlier had some runny nose. No sore throat. Denies any cough. No abdominal pain. Normal bowel and bladder movements. Hemodynamics are okay. Past medical history. As mentioned above Past surgical history. Colonoscopy. Injection of lumbosacral spine. Appendectomy. Cataracts procedure. Social history. . Quit smoking 1994. Smoked for 15 years. Alcohol rarely. No drug use. Family history. Sister had multiple myeloma. Brother of CAD at age of 55. Sister s/p MVR. Father had multiple strokes. Admission Exam Per Admitting Provider General- Not in distress Head- atraumatic Eyes- PERRL, EOMI, anicteric ENT- oropharynx clear Neck- supple, no JVD,. Lungs- clear to auscultation no wheezing or crackles Heart- regular rhythm; no murmur, no gallop. Abdomen- normal bowel sounds, soft, nontender, no distension. Extremities- no pretibial edema, no erythema seen. Neuro- alert, oriented ; PERRL,no facial palsy; no dysarthria; moves extremities. Skin- warm & dry Principal Diagnosis Acute cholecystitis Possible pneumonia Discharge Exam Constitutional: Appears tired. Not in significant distress. Respiratory: Bilateral vesicular breath sound Cardiovascular: RRR, no murmur, no edema Vessels: no JVD or carotid bruit Chest: normal inspection of chest Abdomen: Tenderness present in right upper quadrant and epigastric region. Musculoskeletal: no cyanosis or clubbing, extremities motor strength 5/5 Skin: no rashes, warm and dry normal turgor Neurologic: PERRL, EOMI, accommodation nl, no face palsy, no dysarthria CN's II- XI intact bilaterally and moves all extremities Discharge Data Allergies Allergy/AdvReac Type Severity Reaction Status Date / Time Penicillins Allergy Severe TONGUE Verified 04/22/23 03:00 SWELLING amoxicillin [From Augmentin] AdvReac Unknown Vomiting Verified 04/22/23 03:00 clavulanic acid AdvReac Unknown Vomiting Verified 04/22/23 03:00 [From Augmentin] Consultations 04/22/23 00:20 ED Decision to Admit Stat 04/22/23 08:13 Consult Cardiology Routine 04/23/23 08:00 Consult General Surgery Routine Ordered Studies 04/21/23 22:51 CT angio chest PE protocol Stat CT head/brain wo con Stat 04/22/23 13:24 CT abd pelvis IV con only Urgent 04/22/23 15:36 US liver Urgent 04/24/23 10:23 MR MRCP Urgent Hospital Course (1) Chest pain: [id number]-male with past medical history significant for chronic systolic CHF EF 25%, CAD, hypertension, hyperlipidemia, history of CVA, diabetes diet- controlled, chronic anemia baseline hemoglobin 13, BPH, skin cancer per records history of A-fib on Eliquis presents to the hospital with chest pain and abdominal discomfort. Patient also had episodes of nausea and vomiting. Acute Cholecystitis Possible Aspiration pneumonia Patient had reported abdominal pain on admission. He also had nausea and vomiting CT chest on admission personally reviewed; no PE. Interseptal thickening concerning for pulmonary edema. Also has subtle airspace opacities on right upper lobe and left lower lobe CT abdomen concerning for acute cholecystitis. Right upper quadrant confirms acute cholecystitis HIDA scangallbladder was not identified during the 45 minutes of imaging. Unable to complete the entire examination. No evidence of CBD obstruction. WBC 33,000 > 29,000 Continue on meropenem. Continue on doxycycline for possible atypical pneumonia. As per cardiology; patient is considered high risks for anesthesia given underlying ischemic cardiomyopathy, low EF, history of [place] in 1994. However, patient is well compensated from cardiac perspective at present time. Last dose of Eliquis on April 23, 2023 at 8 AM Currently on Lovenox bridge. Discussed with from [facility] transfer center; [facility]; [facility] Discussion was also done with GI regarding placement of Axios stent; no capabilities at the hospital Discussed with Dr. Leal at [facility]; discussed with interventional radiology as well. Agree for transferawaiting bed MRCP ordered as per recommendation by interventional radiology at [facility]. Total bilirubin elevated today as well as AST, ALT and ALP Chest pain Ischemic cardiomyopathy ACS ruled out History of remote LAD territory [place] in 1994 resulting in ischemic cardiomyopathy. He presents with sudden onset of chest pain EKG on admission shows sinus rhythm with LBBB High sensitive troponin negative Echocardiogram shows EF of 20 to 25% with severely dilated left ventricle. Cardiology consulted; continue on aspirin, statin, beta-lux, spironolactone Monitor on telemetry Acute on chronic systolic CHF CT chest on admission showed mild pulmonary edema Denies any shortness of breath Saturating well on room air Patient was given IV Lasix Apr. Appears well compensated today Continue metoprolol succinate and lisinopril History of CAD On aspirin statin and beta-lux History of A-fib On metoprolol succinate On Lovenox Prolonged qtc 500 avoid qt prolonging drugs follow repeat ekg. BPH Flomax and Proscar DVT prophylaxis On Eliquis Disposition Patient accepted at tertiary medical center at [facility] and [facility]. Awaiting bed placement. DNR/DNI. Provided update to the spouse at bedside. Answer questions/queries. Time spent evaluating patient, direct bedside care, chart review, placing orders, interpretation of diagnostic studies, discussion with consultants, patient, and family members, as well as other required patient management activities is 90 minutes. Please note the above document was generated using voice recognition software. It may contain grammatical, syntax or spelling errors. Any formal questions or concerns about the content, text or information contained within the body of this dictation should be directly addressed to the provider for clarification Total Time Total Time Spent Total Time Spent (In Minutes): 45 Total Time Includes: Examination of the Patient, Discharge Planning, Medication Reconciliation, Communication With Other Providers and Other Discharge Plan Discharge Items Patient Disposition: Transfer Acute Care Hospital Reason For Visit: CHEST PAIN, CHF, PNEUMONIA Discharge Diagnosis: Acute cholecystitis Condition on Discharge: Good Activity: Resume your previous activity Non-emergency contact: Primary Care Provider Call non-emergency contact if: you have any medication questions and your symptoms worsen Follow-up/Referrals: Doberstein,Adam F., MD [Primary Care Provider] - Diet: Clear liquid Addtl Attending Provider Instructions: Acute Cholecystitis Possible Aspiration pneumonia Patient had reported abdominal pain on admission. CT chest on admission personally reviewed; no PE. Interseptal thickening concerning for pulmonary edema. Also has subtle airspace opacities on right upper lobe and left lower lobe CT abdomen concerning for acute cholecystitis. Right upper quadrant confirms acute cholecystitis HIDA scangallbladder was not identified during the 45 minutes of imaging. Unable to complete the entire examination. No evidence of CBD obstruction. WBC 33,000 > 29,000 Continue on meropenem. Continue on doxycycline for possible atypical pneumonia. As per cardiology; patient is considered high risks for anesthesia given under lying ischemic cardiomyopathy, low EF, history of [place] in 1994. However, patient is well compensated from cardiac perspective at present time. Last dose of Eliquis on April 23, 2023 at 8 AM Currently on Lovenox bridge.Last dose was at 8 am. Patient transferred to tertiary care center. Pending Studies at Discharge: No Stand-Alone Forms: My [facility] Skilled Items Patient informed of condition?: No DNR: Yes Discharge Level of Care: Other Communicable Disease: No Discharge Prognosis: Stable Lines: Peripheral IV Urinary Catheter: No Medications and DC Order Prescriptions: Continued atorvastatin 80 mg tablet 80 mg PO QAM finasteride 5 mg tablet 5 mg PO QAM tamsulosin 0.4 mg capsule 0.4 mg PO HS aspirin 81 mg Tablet,Delayed Release (Dr/Ec) 81 mg PO QAM metoprolol succinate 50 mg tablet extended release 24 hr 50 mg PO QAM spironolactone 25 mg tablet 12.5 mg PO QAM Rx Instructions: Take 12.5 mg daily. lisinopril 2.5 mg tablet 2.5 mg PO QAM Rx Instructions: Take 2.5 mg daily. Eliquis 5 mg Tablet 5 mg PO BID Qty: 60 0RF furosemide 20 mg Tablet 20 mg PO QAM Qty: 30 0RF Discharge Orders: Discharge Order (Routine); Ordered 04/25/23 Ordered By: Sal Rossi/Other Patient Handouts: Managing Type 2 Diabetes Admission Data Admit Date/Time: 04/22/23 06:09 Attending Provider: Sal Ashraf Admit Provider: Tnao Torres Primary Care Provider: Adam Siddiqi Other Providers: Zbigniew Jolley; Tano Torres; Sergio Rose; Kei Sumner; Mian Grimes; Aria Leone; Doug Ace; Zbigniew Alfaro; Paige Burgos; Melissa Kuo; Aaron Tinajero Jr; Radha Lou; Koko Domingo; Haylee Leonard Other Interventions: Discharge Summary Assessment (RN) Last Done: 04/25/23 08:20
[2023-04-24] MEDS: SODIUM CHLORIDE 0.9% 250 ML IV ONE (15:56)
[2023-04-24] MEDS: ALPRAZolam 0.25 MG TABLET PO PRN (16:43)
--- NOTE | 2023-04-24 19:37 | Magnetic Resonance Report ---
MR MRCP CLINICAL HISTORY: rule out cbd stone TECHNIQUE: Multiplanar multisequence MR images of the abdomen were obtained, as per MRCP protocol. . COMPARISON: Comparison is made to CT abdomen pelvis 04/22/2023 FINDINGS: Lower chest: No acute abnormality Liver: Unremarkable. No focal lesions are seen. Gallbladder and biliary tree: Distended gallbladder with a thickened wall noted. No intra- or extrahe patic biliary ductal dilation. Pancreas: Unremarkable, no focal lesions. Spleen: T2 hyperdensity in the spleen likely represent splenic hemangioma. Adrenals: Unremarkable. Kidneys and ureters: Numerous renal cysts are seen. Bowel: Unremarkable. Lymph nodes Retroperitoneal: Unremarkable. Mesenteric: Unremarkable. Peritoneum: Normal Vessels: Unremarkable. Abdominal wall: Unremarkable. Bones: Unremarkable. IMPRESSION: Findings compatible with acute cholecystitis. No common bile duct stones are seen. ACT 112: Negative or not required by law. Electronically signed by: Quinten Mahmood M.D. 04/24/2023 7:34 PM
[2023-04-25 06:19] LABS: Hematocrit (blood only) 34.7 % (42.0-52.0); Hemoglobin 11.6 g/dl (14.0-18.0); Mean Corpuscular Hemoglobin 27.8 pg (25.0-34.0); Mean Corpuscular Hgb Conc 33.4 g/dL (32.0-36.0); Mean Corpuscular Volume 83.2 fL (80.0-100.0); Mean Platelet Volume 10.5 fL (9.4-12.4); Platelet Count 201 K/uL (130-400); RDW Standard Deviation 49.1 fL (36.4-46.3); Red Blood Count 4.17 M/uL (4.70-6.10); White Blood Count 20.23 K/ul (4.8-10.8)
[2023-04-25 06:47] LABS: Basophils # (auto) 0.02 K/uL (0.00-0.20); Basophils % (auto) 0.1 %; Echinocytes 2+; Immature Granulocytes # (auto) 0.15 K/uL (0.01-0.20); Immature Granulocytes % (auto) 0.7 %; Lymphocytes # (auto) 0.58 K/uL (1.20-3.40); Lymphocytes % (auto) 2.9 %; Monocytes # (auto) 1.06 K/uL (0.11-0.59); Monocytes % (auto) 5.2 %; Neutrophils # (auto) 18.42 K/uL (1.40-6.50); Neutrophils % (auto) 91.1 %; Polychromasia 1+
[2023-04-25 06:57] LABS: Albumin Globulin Ratio 1.3 (0.9-2); Albumin Level 3.2 gm/dl (3.4-5.0); Alkaline Phosphatase 256 U/L (34-104); Anion Gap 7 (3-11); BUN Creatinine Ratio 46.7 (10-20); Bilirubin,Total 5.2 mg/dl (0.2-1.0); Blood Urea Nitrogen 70 mg/dl (6-23); Calcium 9.3 mg/dl (8.6-10.3); Carbon Dioxide 27 mmol/L (21-32); Chloride 96 mmol/L (98-107); Est GFR (African American) 49.5 ml/min; Est GFR (Non-African American) 42.7 ml/min; Globulin 2.5 gm/dl (2.5-4.0); Glucose 223 mg/dl (70-99(Fasting)); Sodium 130 mmol/L (136-145); Total Protein 5.7 gm/dl (6.0-8.3)
[2023-04-25 07:01] LABS: Alanine Aminotransferase 923 U/L (7-52)
[2023-04-25 07:40] LABS: Potassium 4.3 mmol/L (3.5-5.1)
--- NOTE | 2023-04-25 11:34 | Discharge Summary ---
Date of Service April 25, 2023 Admission HPI Per Admitting Provider [id number]-male with past medical history significant for chronic systolic CHF EF 25%, CAD, hypertension, hyperlipidemia, history of CVA, diabetes diet- controlled, chronic anemia baseline hemoglobin 13, BPH, skin cancer per records history of A-fib on Eliquis who recently in the hospital initially thought to be left septic arthritis of the knee but it was ruled out and thought was pseudogout treated with prednisone comes because of chest pain. Patient states he was watching TV at 9:30 PM when he had left-sided chest pain 3-5/10 in severity and possible radiation to back of the neck. He also felt diaphoretic and felt warm. Thinks he had low-grade temperature. Denies any shortness of breath. In the ER he had episode of nausea and vomiting. Denies any headache. Earlier had some runny nose. No sore throat. Denies any cough. No abdominal pain. Normal bowel and bladder movements. Hemodynamics are okay. Past medical history. As mentioned above Past surgical history. Colonoscopy. Injection of lumbosacral spine. Appendectomy. Cataracts procedure. Social history. . Quit smoking 1994. Smoked for 15 years. Alcohol rarely. No drug use. Family history. Sister had multiple myeloma. Brother of CAD at age of 55. Sister s/p MVR. Father had multiple strokes. Admission Exam Per Admitting Provider General- Not in distress Head- atraumatic Eyes- PERRL, EOMI, anicteric ENT- oropharynx clear Neck- supple, no JVD,. Lungs- clear to auscultation no wheezing or crackles Heart- regular rhythm; no murmur, no gallop. Abdomen- normal bowel sounds, soft, nontender, no distension. Extremities- no pretibial edema, no erythema seen. Neuro- alert, oriented ; PERRL,no facial palsy; no dysarthria; moves extremities. Skin- warm & dry Principal Diagnosis Acute Cholecystitis Possible Aspiration pneumonia Discharge Exam Constitutional: Appears tired. Not in significant distress. Respiratory: Bilateral vesicular breath sound Cardiovascular: RRR, no murmur, no edema Vessels: no JVD or carotid bruit Chest: normal inspection of chest Abdomen: Tenderness present in right upper quadrant and epigastric region. Musculoskeletal: no cyanosis or clubbing, extremities motor strength 5/5 Skin: no rashes, warm and dry normal turgor Neurologic: PERRL, EOMI, accommodation nl, no face palsy, no dysarthria CN's II- XI intact bilaterally and moves all extremities Discharge Data Allergies Allergy/AdvReac Type Severity Reaction Status Date / Time Penicillins Allergy Severe TONGUE Verified 04/22/23 03:00 SWELLING amoxicillin [From Augmentin] AdvReac Unknown Vomiting Verified 04/22/23 03:00 clavulanic acid AdvReac Unknown Vomiting Verified 04/22/23 03:00 [From Augmentin] Consultations 04/22/23 00:20 ED Decision to Admit Stat 04/22/23 08:13 Consult Cardiology Routine 04/23/23 08:00 Consult General Surgery Routine 04/24/23 17:46 Burn CD for patient Stat Ordered Studies 04/21/23 22:51 CT angio chest PE protocol Stat CT head/brain wo con Stat 04/22/23 13:24 CT abd pelvis IV con only Urgent 04/22/23 15:36 US liver Urgent 04/24/23 10:23 MR MRCP Urgent Hospital Course (1) Chest pain: [id number]-male with past medical history significant for chronic systolic CHF EF 25%, CAD, hypertension, hyperlipidemia, history of CVA, diabetes diet- controlled, chronic anemia baseline hemoglobin 13, BPH, skin cancer per records history of A-fib on Eliquis presents to the hospital with chest pain and abdominal discomfort. Patient also had episodes of nausea and vomiting. Acute Cholecystitis Possible Aspiration pneumonia Acute kidney injury Patient had reported abdominal pain on admission. He also had nausea and vomiting CT chest on admission personally reviewed; no PE. Interseptal thickening concerning for pulmonary edema. Also has subtle airspace opacities on right upper lobe and left lower lobe CT abdomen concerning for acute cholecystitis. Right upper quadrant confirms acute cholecystitis HIDA scangallbladder was not identified during the 45 minutes of imaging. Unable to complete the entire examination. No evidence of CBD obstruction. WBC 33,000 > 29,000 > 20,000 Continue on meropenem. Continue on doxycycline for possible atypical pneumonia. As per cardiology; patient is considered high risks for anesthesia given underlying ischemic cardiomyopathy, low EF, history of NM in 1994. However, patient is well compensated from cardiac perspective at present time. Last dose of Eliquis on April 23, 2023 at [address] Leal at [facility]; discussed with interventional radiology as well. MRCP was done as per recommendation of by interventional radiology which showed findings consistent with acute cholecystitis. No common bile duct stones were seen. Patient's bilirubin up trended on lab review as well as elevation in his liver function test. Patient's creatinine up trended as well. Patient was transferred to [facility] on April 25, 2023 by [facility] for percutaneous cholecystostomy . Please note the above document was generated using voice recognition software. It may contain grammatical, syntax or spelling errors. Any formal questions or concerns about the content, text or information contained within the body of this dictation should be directly addressed to the provider for clarification Total Time Total Time Spent Total Time Spent (In Minutes): 45 Total Time Includes: Examination of the Patient, Discharge Planning, Medication Reconciliation, Communication With Other Providers and Other Discharge Plan Discharge Items Patient Disposition: Transfer Acute Care Hospital Reason For Visit: CHEST PAIN, CHF, PNEUMONIA Discharge Diagnosis: Acute cholecystitis Condition on Discharge: Good Activity: Resume your previous activity Non-emergency contact: Primary Care Provider Call non-emergency contact if: you have any medication questions and your symptoms worsen Follow-up/Referrals: Adam Siddiqi MD [Primary Care Provider] - Diet: Clear liquid Addtl Attending Provider Instructions: Acute Cholecystitis Possible Aspiration pneumonia Patient had reported abdominal pain on admission. CT chest on admission personally reviewed; no PE. Interseptal thickening concerning for pulmonary edema. Also has subtle airspace opacities on right upper lobe and left lower lobe CT abdomen concerning for acute cholecystitis. Right upper quadrant confirms acute cholecystitis HIDA scangallbladder was not identified during the 45 minutes of imaging. Unable to complete the entire examination. No evidence of CBD obstruction. WBC 33,000 > 29,000 Continue on meropenem. Continue on doxycycline for possible atypical pneumonia. As per cardiology; patient is considered high risks for anesthesia given underlying ischemic cardiomyopathy, low EF, history of NM in 1994. However, patient is well compensated from cardiac perspective at present time. Last dose of Eliquis on April 23, 2023 at 8 AM Currently on Lovenox bridge.Last dose was at 8 am. Patient transferred to tertiary care center. Pending Studies at Discharge: No Stand-Alone Forms: [facility] Skilled Items Patient informed of condition?: No DNR: Yes Discharge Level of Care: Other Communicable Disease: No Discharge Prognosis: Stable Lines: Peripheral IV Urinary Catheter: No Medications and DC Order Prescriptions: Continued atorvastatin 80 mg tablet 80 mg PO QAM finasteride 5 mg tablet 5 mg PO QAM tamsulosin 0.4 mg capsule 0.4 mg PO HS aspirin 81 mg Tablet,Delayed Release (Dr/Ec) 81 mg PO QAM metoprolol succinate 50 mg tablet extended release 24 hr 50 mg PO QAM spironolactone 25 mg tablet 12.5 mg PO QAM Rx Instructions: Take 12.5 mg daily. lisinopril 2.5 mg tablet 2.5 mg PO QAM Rx Instructions: Take 2.5 mg daily. Eliquis 5 mg Tablet 5 mg PO BID Qty: 60 0RF furosemide 20 mg Tablet 20 mg PO QAM Qty: 30 0RF Discharge Orders: Discharge Order (Routine); Ordered 04/25/23 Ordered By: Sal Rossi/Other Patient Handouts: Managing Type 2 Diabetes Admission Data Admit Date/Time: 04/22/23 06:09 Attending Provider: Sal Ashraf Admit Provider: Tano Torres Primary Care Provider: Adam Siddiqi Other Providers: Zbigniew Jolley; Tano Torres; Sergio Rose; Kei Sumner; Mian Grimes; Aria Leone; Doug Ace; Zbigniew Alfaro; Paige Burgos; Melissa Kuo; Aaron Tinajero Jr; Radha Lou; Koko Domingo; Haylee Leonard Other Interventions: Discharge Summary Assessment (RN) Last Done: 04/25/23 08:20
== END 2023-04-25 08:36 | disposition short-term general hospital (02) | DRG 444 ==
LOC: ED 22:27 → EDINP 04-22 06:09 → 2E 04-22 08:13

== ENCOUNTER 2023-05-08 14:19 | Inpatient (IN) ==
--- NOTE | 2023-05-08 14:29 | ED Triage Note ---
Date of Service May 08, 2023 Provider in Triage Author: Rani Coyle History of Present Illness This patient was briefly evaluated while in triage. An abbreviated physical exam was performed. This patient is a 82-year-old Male who presents to the ED for evaluation of chest pain and SOB. Symptoms started 20 minutes ago. Radiates into both arms. H/o [place], afib. On Eliquis. Physical Exam Constitutional: alert and oriented x3. no acute distress. HEENT: normocephalic, atraumatic. normal conjunctiva.PERRLA. EOM's grossly intact. Respiratory: equal chest rise. normal respiratory effort, no accessory muscle use. Cardiovascular: regular rate and rhythm. MSK: moves all 4 extremities spontaneously Psych:appropriate mood and affect. Initial orders for labs and / or imaging were placed and patient was taken to treatment room for evaluation. Please see further documentation for the full ED course. MDM / Impression Impression Impression: Chest pain
[2023-05-08] MEDS: SODIUM CHLORIDE 0.9% 500 ML IV ONE (15:00)
--- NOTE | 2023-05-08 15:08 | Electrocardiogram Report ---
Test Reason : Blood Pressure : / mmHG Vent. Rate : 117 BPM Atrial Rate : 000 BPM P-R Int : 000 ms QRS Dur : 170 ms QT Int : 358 ms P-R-T Axes : 000 -45 118 degrees QTc Int : 499 ms Atrial fibrillation with rapid ventricular response Left axis deviation Left bundle branch block Abnormal ECG When compared with ECG of 24-APR-2023 05:47, No significant change was found Confirmed by Pasha Gutierrez ([id number]) on 05/08/2023 3:07:40 PM Referred By: Confirmed By:Pasha Gutierrez
--- NOTE | 2023-05-08 15:15 | Emergency Department Note ---
Impression & Plan Chest pain, Pulmonary edema, Acute respiratory failure, Ischemic cardiomyopathy, Ventricular tachycardia ED Provider Note ED Provider Note NAME: NOLBERTO WINTERS AGE:82 SEX: Male : 1940 ARRIVES VIA: Private vehicle INFORMANT: Patient ED PROVIDER(s): Bethany Medel DO CHIEF COMPLAINT: Chest pain HPI: This is an 82-year-old male presents emerged department due to concern for chest pain. He states pain began around 130 this afternoon. He did eat lunch normally and felt well. He states he initially began with the "funny sensation" in bilateral ACs and then noticed chest pain. He states the chest pain was nonradiating. He did not take anything at home prior to arrival. He states he does feel short of breath additionally. He states the last time he had the symptoms he ended up having a heart attack. He states that was back in 1994, no stents or CABG performed. He follows with Dr. Jolley of cardiology, is uncertain when his last echo was. Most recently patient presented here and found to have "a gallbladder infection" and due to their concern for his heart history they felt that they could not adequately treat him here and so he was transferred to [facility] according to family at bedside. They state a drainage tube was placed into his gallbladder and he was discharged home last Sunday. He was given antibiotics while he was there, was not discharged on any oral antibiotics. Family bedside also states they stopped his lisinopril, Lasix, and Eliquis. No other recent change in medications. He is not due to see the surgeon down at [facility] again until June. PAST MEDICAL HISTORY:See Below PAST SURGICAL HISTORY:See Below FAMILY HISTORY:See Below SOCIAL HISTORY:See Below HOME MEDICATIONS:See Below ALLERGIES:See Below VITALS:See Below PHYSICAL EXAMINATION: GENERAL: alert, well appearing, well nourished, no distress, non-toxic EYE EXAM: normal conjunctiva, PERRL and EOM's grossly intact OROPHARYNX: no exudate, no erythema, lips, buccal mucosa, and tongue normal and mucous membranes are moist NECK: supple, no nuchal rigidity, no adenopathy, non-tender LUNGS: Clear to auscultation. Normal chest wall mechanics, no w/r/r, tachypneic HEART: no murmurs, S1 normal and S2 normal ABDOMEN: abdomen soft, non-tender, normo-active bowel sounds, no masses, no rebound or guarding. Perc Choley tube noted in the right upper quadrant laterally, stitch present, no surrounding cellulitis, no surrounding erythema BACK: Back is symmetrical on inspection and there is no deformity, no midline tenderness, no CVA tenderness. SKIN: no rashes, petechiae, orbruising UPPER EXTREMITIES: upper extremities are grossly normal. FROM, nml pulses b/l. LOWER EXTREMITIES: 1+ pedal bilateral pitting edema. FROM, nml pulses b/l. NEURO EXAM: Normal sensorium, cranial nerves II-XII grossly intact, normal speech, no facial droop,nogross weakness of arms, no gross weakness of legs. Gross sensation intact. No ataxia. Vital Signs: reviewed and remarkable Differential Diagnosis: acute coronary syndrome, pericarditis, pulmonary embolus, aortic dissection, pneumonia, pneumothorax, musculoskeletal pain, shingles, GERD, GI bleed, as well as others were considered MEDICAL DECISION MAKING: This is an 82-year-old male who presents emergency room due to concern for shortness of breath and chest pain. Symptoms began at home the patient brought in by family through triage. Patient placed in room A1 and I was asked come see the patient urgently due to staff concern for tachycardia, hypotension, and tachypnea. EKG performed and it show A-fib and elevated rate. Patient does have a known history of A-fib as well as a left bundle branch block. This was also noted on EKG. Due to recent cholecystitis and placement of a percutaneous cholecystostomy tube per patient report, a sepsis protocol was initially started by nursing staff. Given patient's hypotension despite normal mentation, he was given a 500 mL fluid bolus, and blood pressure did begin to improve. Patient's oxygen saturation was maintained he had persistent tachypnea. I contacted respiratory therapy and we initially started with high flow nasal cannula after he had been placed on an OxyMask by nursing staff for comfort. Patient was given broad-spectrum antibiotics due to initial concern for possible evolving sepsis given recent cholecystitis and procedure. No leukocytosis noted, and H&H stable compared to prior. Lactic acid mildly elevated at 3. Patient with appearance of increased work of breathing, and so we discussed trial of BiPAP at bedside. RT was again recontacted and did not bring BiPAP to bedside. Patient given 20 mg of Lasix IV as that was his usual dose when he was on it at home. I suspect after this was discontinued following his discharge from [facility], he has likely slowly been accumulating additional fluid which is causing additional strain to his heart as he already has a low ejection fraction upon review of his prior echo and history of ischemic cardiomyopathy. Patient transition to BiPAP with improvement. Levophed added in case of needing to buffer the drop in blood pressure as patient was still hypotensive. Patient then also noted to have increased frequency of PVCs and short runs of ventricular tachycardia. I did discuss the case with cardiology, Dr. Turner via phone, and he did come and see the patient in the emergency room additionally. After his review, amiodarone bolus and drip were added. Case discussed with on-call [facility] team, and conference services manager notified. Patient rechecked multiple times throughout his stay. He and family at bedside updated multiple times given my concern for his condition. We did also discuss the possible need for intubation although I feel patient high risk and intubation would be a risky procedure given his overall condition and hemodynamic instability at this time. Will try to titrate BiPAP to comfort and utilize other medications to help buffer blood pressure and prevent further dysrhythmia. warehouse supervisor 3rd shift ICU provider also given signout additionally upon his arrival as patient was just being transferred to the ICU at that time. Unfortunately while initial orders for CT of the chest as well as the abdomen and pelvis were added, patient was never hemodynamically stable enough to have CTs performed. Consultation(s): 1650: Seen by Dr. Turner in the ER. We discussed plan of care and response to current interventions. 1703: [place] text sent to Dr. Rainey, ICU, regarding need for ICU admit. He acknowledged this. 1713: Discussed with Paula Finch PA-C with [facility] team. Patient is beginning to respond to BiPAP and reports feeling slightly improved. 1830: Discussed with Rodrigo ICU ASSEMBLY WORKER. ER Treatment Provided: See below Diagnostics Interpreted By Me: -ECG: A-fib at a rate of 117, leftward axis, prolonged QRS and QTc, left bundle branch block, nonspecific ST/T wave changes -Cardiac Monitoring: An order was placed for continuous cardiac monitoring. The monitor shows a rate of 102 with a.fib rhythm. -Laboratory studies: As stated above and show below. -Imaging studies: Chest x-ray: Bilateral pulmonary edema noted, cardiomegaly noted, no obvious pleural effusions, no wide mediastinum Triage Nursing Note Reviewed Prior/Outside Records Reviewed -prior cardiology visit and echo reviewed, EF noted to be 20-25% Critical Care: Critical care of 76 min performed to assess and manage high likelihood of life- threatening hypotension, ventricular tachycardia, pulmonary edema, involving labs and imaging performed with assessment to evaluate chest pain and shortness of breath diagnosis with frequent reassessment. This time includes bedside time, treatment discussions with patient/family/consultants, documentation time and excludes procedure time. Past Med/Surg History Medical History Cholecystitis Septic arthritis of knee, left Cholecystitis with cholelithiasis BPH with obstruction/lower urinary tract symptoms Degenerative disc disease Arthritis History of pyloric stenosis as a child Diabetes mellitus, type 2 NO MEDS History of skin cancer Transient ischemic attack (TIA) AROUND 2019? *NO PROBLEMS FROM EVENT HTN (hypertension) Systolic CHF FOLLOWS DR. JOLLEY>PT UNSURE OF CARDIAC HX Ischemic cardiomyopathy CAD (coronary artery disease) 1994-anterior wall [place], no intervention Dyslipidemia DM type 2 (diabetes mellitus, type 2) Surgical History History of colonoscopy History of repair of pyloric stenosis History of tooth extraction History of cardiac cath 1994 History of cataract surgery RT/LEFT History of appendectomy Family History Sister Multiple myeloma Brother Heart disease Other No family history of adverse response to anesthesia Social History Smoking Status: Never smoker Second Hand Exposure: No; Do You Dip or Chew Tobacco: No; Hx Alcohol Use: Yes Alcohol type: hard liquor Hx Substance Use: No Preferred Language: Armenian Communication Ability: Effective Access Control Officer Required: No Beliefs That Will Affect Care: None marital status: Current Living Situation: Spouse Feels Safe at Home: Yes Assistive Devices: Walker Allergies Allergies Allergy/AdvReac Type Severity Reaction Status Date / Time Penicillins Allergy Severe TONGUE Verified 05/08/23 15:44 SWELLING amoxicillin [From Augmentin] AdvReac Unknown Vomiting Verified 05/08/23 15:44 clavulanic acid AdvReac Unknown Vomiting Verified 05/08/23 15:44 [From Augmentin] Home Meds Home Medications Medication Instructions Recorded Confirmed atorvastatin 80 mg tablet 80 mg PO QAM 11/26/18 05/08/23 aspirin 81 mg tablet,delayed 81 mg PO QAM 01/03/19 05/08/23 release metoprolol succinate 50 mg 50 mg PO QAM 07/26/20 05/08/23 tablet,extended release 24 hr spironolactone 25 mg tablet 12.5 mg PO QAM 05/30/21 05/08/23 finasteride 5 mg tablet 5 mg PO QAM 08/02/22 05/08/23 tamsulosin 0.4 mg capsule 0.4 mg PO 08/02/22 05/08/23 vit C 250 mg-vit E 90 mg-zinc 40 1 tab PO AMHS 05/08/23 05/08/23 mg-copper 1 [id number] capsule (PreserVision AREDS-2) Results & Data (ED) Vital Signs Vital Signs - 24 hr 05/08/23 14:26 05/08/23 14:41 05/08/23 15:01 Temperature 35.8 C L Temperature Source Temporal Artery Scan Pulse Rate 83 109 H Pulse Rate [Apical] 105 H Pulse Rate from SpO2 Sensor 92 H Pulse Rhythm [Apical] Irregular Pulse Strength [Apical] Normal Respiratory Rate 18 36 H 33 H Respiratory Effort / Characteristics Non-Labored Spontaneous Non-Labored Spontaneous Respiratory Depth Normal Normal Respiratory Pattern Regular Blood Pressure 89/58 L 83/52 L Blood Pressure [Right Arm] 73/53 L Blood Pressure Mean 68 62 Blood Pressure Mean [Right Arm] 59 Blood Pressure Position Sitting Blood Pressure Position [Right Arm] Sitting Pulse Oximetry 97 97 95 Oxygen Delivery Method Room Air Room Air Room Air Oxygen Flow Rate Fraction of Inspired Oxygen Sepsis Recent Fever Within 48 Hours No Sepsis New/Unexplained Change in Mental Status No Sepsis Action Taken by Nursing No Action Required 05/08/23 15:19 05/08/23 15:30 05/08/23 15:45 Temperature Temperature Source Pulse Rate 94 H 92 H 112 H Pulse Rate [Apical] Pulse Rate from SpO2 Sensor 96 H 88 Pulse Rhythm [Apical] Pulse Strength [Apical] Respiratory Rate 32 H 43 H 36 H Respiratory Effort / Characteristics Respiratory Depth Respiratory Pattern Blood Pressure 80/58 L 85/62 L 88/61 L Blood Pressure [Right Arm] Blood Pressure Mean 65 69 70 Blood Pressure Mean [Right Arm] Blood Pressure Position Blood Pressure Position [Right Arm] Pulse Oximetry 97 94 96 Oxygen Delivery Method Room Air Oxymask High Flow Nasal Cannula Oxygen Flow Rate 3.5 40 Fraction of Inspired Oxygen 50 Sepsis Recent Fever Within 48 Hours Sepsis New/Unexplained Change in Mental Status Sepsis Action Taken by Nursing 05/08/23 15:54 05/08/23 16:00 05/08/23 16:01 Temperature Temperature Source Pulse Rate 95 H 124 H Pulse Rate [Apical] 119 H Pulse Rate from SpO2 Sensor 109 H 120 H Pulse Rhythm [Apical] Pulse Strength [Apical] Respiratory Rate 34 H 40 H 40 H Respiratory Effort / Characteristics Spontaneous Labored Short of Breath Respiratory Depth Respiratory Pattern Blood Pressure 84/59 L 84/59 L Blood Pressure [Right Arm] Blood Pressure Mean 67 67 Blood Pressure Mean [Right Arm] Blood Pressure Position Blood Pressure Position [Right Arm] Pulse Oximetry 92 97 99 Oxygen Delivery Method High Flow Nasal Cannula High Flow Nasal Cannula High Flow Nasal Cannula Oxygen Flow Rate 40 40 40 Fraction of Inspired Oxygen 50 50 50 Sepsis Recent Fever Within 48 Hours Sepsis New/Unexplained Change in Mental Status Sepsis Action Taken by Nursing 05/08/23 16:25 05/08/23 16:38 05/08/23 16:42 Temperature Temperature Source Pulse Rate 105 H 167 H 142 H Pulse Rate [Apical] Pulse Rate from SpO2 Sensor Pulse Rhythm [Apical] Pulse Strength [Apical] Respiratory Rate 38 H Respiratory Effort / Characteristics Spontaneous Labored Short of Breath Respiratory Depth Respiratory Pattern Tachypnea Blood Pressure Blood Pressure [Right Arm] Blood Pressure Mean Blood Pressure Mean [Right Arm] Blood Pressure Position Blood Pressure Position [Right Arm] Pulse Oximetry 97 Oxygen Delivery Method Oxygen Flow Rate Fraction of Inspired Oxygen 35 Sepsis Recent Fever Within 48 Hours Sepsis New/Unexplained Change in Mental Status Sepsis Action Taken by Nursing 05/08/23 16:46 05/08/23 16:46 05/08/23 17:01 Temperature Temperature Source Pulse Rate 129 H 126 H Pulse Rate [Apical] Pulse Rate from SpO2 Sensor 132 H 126 H Pulse Rhythm [Apical] Pulse Strength [Apical] Respiratory Rate 37 H 34 H Respiratory Effort / Characteristics Respiratory Depth Respiratory Pattern Blood Pressure 86/59 L 87/67 L 89/66 L Blood Pressure [Right Arm] Blood Pressure Mean 68 72 73 Blood Pressure Mean [Right Arm] Blood Pressure Position Blood Pressure Position [Right Arm] Pulse Oximetry 98 95 Oxygen Delivery Method BiPAP BiPAP Oxygen Flow Rate Fraction of Inspired Oxygen 30 30 Sepsis Recent Fever Within 48 Hours Sepsis New/Unexplained Change in Mental Status Sepsis Action Taken by Nursing Laboratory Data 05/08/23 14:52 05/08/23 14:52 Lab Results 05/08/23 05/08/23 05/08/23 Range/Units 14:52 14:59 16:13 WBC 7.65 (4.8-10.8) K/ul RBC 3.75 L (4.70-6.10) M/uL Hgb 10.1 L (14.0-18.0) g/dl Hct 32.3 L (42.0-52.0) % MCV 86.1 (80.0-100.0) fL MCH 26.9 (25.0-34.0) pg MCHC 31.3 L (32.0-36.0) g/dL RDW Std Deviation 50.9 H (36.4-46.3) fL RDW Coeff of Earl 16.4 H (11.5-14.5) % Plt Count 439 H (130-400) K/uL MPV 9.9 (9.4-12.4) fL Immature Gran % (Auto) 0.5 % Neut % (Auto) 62.9 % Lymph % (Auto) 23.1 % [place] % (Auto) 9.3 % Eos % (Auto) 3.4 % Baso % (Auto) 0.8 % Neut # (Auto) 4.81 (1.40-6.50) K/uL Lymph # (Auto) 1.77 (1.20-3.40) K/uL [place] # (Auto) 0.71 H (0.11-0.59) K/uL Eos # (Auto) 0.26 (0.00-0.50) K/uL Baso # (Auto) 0.06 (0.00-0.20) K/uL Immature Gran # (Auto) 0.04 (0.01-0.20) K/uL PT 11.6 (9.0-12.0) Seconds INR 1.1 (0.9-1.1) APTT 25 (21-31) Seconds PTT Ratio 0.9 Sodium 137 (136-145) mmol/L Potassium 4.2 (3.5-5.1) mmol/L Chloride 106 (98-107) mmol/L Carbon Dioxide 23 (21-32) mmol/L Anion Gap 8 (3-11) BUN 11 (6-23) mg/dl Creatinine 0.88 (0.6-1.4) mg/dl Est Cr Clr Drug Dosing 70.5 ml/min Est GFR ( Amer) 92.7 ml/min Est GFR (Non-Af Amer) 80.0 ml/min BUN/Creatinine Ratio 12.5 (10-20) Glucose 218 H (70-99(Fasting)) mg/dl Lactate 3.0 H* (0.4-2.0) mmol/L Calcium 9.0 (8.6-10.3) mg/dl Total Bilirubin 1.0 (0.2-1.0) mg/dl AST 23 (13-39) U/L ALT 54 H (7-52) U/L Alkaline Phosphatase 131 H (34-104) U/L Troponin I High Sens 14.2 (0-20) pg/ml B-Natriuretic Peptide 743 H (0-100) pg/ml Total Protein 6.3 (6.0-8.3) gm/dl Albumin 3.4 (3.4-5.0) gm/dl Globulin 2.9 (2.5-4.0) gm/dl Albumin/Globulin Ratio 1.2 (0.9-2) Lipase 180 H (11-82) U/L Procalcitonin < 0.02 (0-0.5) ng/ml Adenovirus (PCR) Not Detected (NotDetected) B. pertussis DNA (PCR) Not Detected (NotDetected) B.parapertussis DNA PCR Not Detected (NotDetected) C. pneumoniae DNA (PCR) Not Detected (NotDetected) Coronavirus OC43 (PCR) Not Detected (NotDetected) Coronavirus HKU1 (PCR) Not Detected (NotDetected) Coronavirus 229E (PCR) Not Detected (NotDetected) SARS-CoV-2 (PCR) Not Detected (NotDetected) Coronavirus NL63 (PCR) Not Detected (NotDetected) Human Metapneumovir PCR Not Detected (NotDetected) Influenza Type A (PCR) Not Detected (NotDetected) Influenza Type B (PCR) Not Detected (NotDetected) M. pneumoniae (PCR) Not Detected (NotDetected) Parainfluenza 1 (PCR) Not Detected (NotDetected) Parainfluenza 2 (PCR) Not Detected (NotDetected) Parainfluenza 3 (PCR) Not Detected (NotDetected) Parainfluenza 4 (PCR) Not Detected (NotDetected) RSV (PCR) Not Detected (NotDetected) Entero/Rhino (PCR) Not Detected (NotDetected) 05/08/23 Range/Units 17:23 WBC (4.8-10.8) K/ul RBC (4.70-6.10) M/uL Hgb (14.0-18.0) g/dl Hct (42.0-52.0) % MCV (80.0-100.0) fL MCH (25.0-34.0) pg MCHC (32.0-36.0) g/dL RDW Std Deviation (36.4-46.3) fL RDW Coeff of Earl (11.5-14.5) % Plt Count (130-400) K/uL MPV (9.4-12.4) fL Immature Gran % (Auto) % Neut % (Auto) % Lymph % (Auto) % [place] % (Auto) % Eos % (Auto) % Baso % (Auto) % Neut # (Auto) (1.40-6.50) K/uL Lymph # (Auto) (1.20-3.40) K/uL [place] # (Auto) (0.11-0.59) K/uL Eos # (Auto) (0.00-0.50) K/uL Baso # (Auto) (0.00-0.20) K/uL Immature Gran # (Auto) (0.01-0.20) K/uL PT (9.0-12.0) Seconds INR (0.9-1.1) APTT (21-31) Seconds PTT Ratio Sodium (136-145) mmol/L Potassium (3.5-5.1) mmol/L Chloride (98-107) mmol/L Carbon Dioxide (21-32) mmol/L Anion Gap (3-11) BUN (6-23) mg/dl Creatinine (0.6-1.4) mg/dl Est Cr Clr Drug Dosing ml/min Est GFR ( Amer) ml/min Est GFR (Non-Af Amer) ml/min BUN/Creatinine Ratio (10-20) Glucose (70-99(Fasting)) mg/dl Lactate 6.7 H* (0.4-2.0) mmol/L Calcium (8.6-10.3) mg/dl Total Bilirubin (0.2-1.0) mg/dl AST (13-39) U/L ALT (7-52) U/L Alkaline Phosphatase (34-104) U/L Troponin I High Sens (0-20) pg/ml B-Natriuretic Peptide (0-100) pg/ml Total Protein (6.0-8.3) gm/dl Albumin (3.4-5.0) gm/dl Globulin (2.5-4.0) gm/dl Albumin/Globulin Ratio (0.9-2) Lipase (11-82) U/L Procalcitonin (0-0.5) ng/ml Adenovirus (PCR) (NotDetected) B. pertussis DNA (PCR) (NotDetected) B.parapertussis DNA PCR (NotDetected) C. pneumoniae DNA (PCR) (NotDetected) Coronavirus OC43 (PCR) (NotDetected) Coronavirus HKU1 (PCR) (NotDetected) Coronavirus 229E (PCR) (NotDetected) SARS-CoV-2 (PCR) (NotDetected) Coronavirus NL63 (PCR) (NotDetected) Human Metapneumovir PCR (NotDetected) Influenza Type A (PCR) (NotDetected) Influenza Type B (PCR) (NotDetected) M. pneumoniae (PCR) (NotDetected) Parainfluenza 1 (PCR) (NotDetected) Parainfluenza 2 (PCR) (NotDetected) Parainfluenza 3 (PCR) (NotDetected) Parainfluenza 4 (PCR) (NotDetected) RSV (PCR) (NotDetected) Entero/Rhino (PCR) (NotDetected) Administered Medications Discontinued Medications Amiodarone HCl/Dextrose (Amiodarone 360mg / 200ml D5w) Confirm Administered Dose 360 mg IV .[facility]-MED ONE Stop: 05/08/23 16:54 Last Admin: 05/08/23 17:15 Dose: 360 mg Documented By: VIKAS Co-signed By: GRABIEL Amiodarone HCl/Dextrose (Amiodarone 150mg / 100ml D5w) Confirm Administered Dose 150 mg IV .[facility]-MED ONE Stop: 05/08/23 16:55 Last Admin: 05/08/23 17:03 Dose: 150 mg Documented By: VIKAS Co-signed By: ABDI Furosemide (Furosemide Inj 20 Mg/2 Ml Vial) 20 mg IV ONE ONE Stop: 05/08/23 16:12 Last Admin: 05/08/23 16:39 Dose: 20 mg Documented By: VIKAS Furosemide (Furosemide 40 Mg/4 Ml Vial) 40 mg IV ONE ONE Stop: 05/08/23 17:50 Last Admin: 05/08/23 17:52 Dose: 40 mg Documented By: VIKAS Cefepime HCl (Maxipime) 20 mls @ 5 mls/min IV NOW STA Stop: 05/08/23 15:14 Last Admin: 05/08/23 15:37 Dose: 5 mls/min Documented By: VIKAS Metronidazole (Flagyl) 500 mg in 100 mls @ 100 mls/hr IV NOW STA Stop: 05/08/23 16:11 Last Infusion: 05/08/23 20:23 Dose: Infused Documented By: Admin: 05/08/23 15:55 Dose: 100 mls/hr Documented By: VIKAS Vancomycin HCl 1,750 mg/ (Sodium Chloride) 535 mls @ 200 mls/hr IV NOW STA Stop: 05/08/23 17:52 Last Admin: 05/08/23 15:37 Dose: 200 mls/hr Documented By: VIKAS Sodium Chloride (Nss) 500 mls @ 999 mls/hr IV .Q31M ONE Stop: 05/08/23 15:36 Last Infusion: 05/08/23 15:20 Dose: Infused Documented By: Admin: 05/08/23 15:00 Dose: 999 mls/hr Documented By: VIKAS Norepinephrine Bitartrate (Levophed/D5w) 4 mg in 250 mls @ 22.733 mls/hr IV .Q11H [facility]; Protocol Stop: 06/07/23 16:14 Last Titration: 05/08/23 17:47 Dose: 0.07 mcg/kg/min, 22.7 mls/hr Documented By: Admin: 05/08/23 16:34 Dose: 0.05 mcg/kg/min, 16.2 mls/hr Documented By: JLT Co-signed By: NA Phenylephrine HCl (Phenylephrine/Nss) 25 mg in 250 mls @ 25.98 mls/hr IV .Q9H38M [facility]; Protocol Stop: 06/07/23 18:42 Last Admin: 05/08/23 20:58 Dose: 10 mcg/kg/min, 519.6 mls/hr Documented By: CP Co-signed By: MMG Titration: 05/08/23 20:55 Dose: Infused Documented By: CP Co-signed By: MMG Titration: 05/08/23 20:36 Dose: 10 mcg/kg/min, 519.6 mls/hr Documented By: CP Co-signed By: CF Titration: 05/08/23 20:21 Dose: 7 mcg/kg/min, 363.7 mls/hr Documented By: CP Co-signed By: MMG Admin: 05/08/23 20:16 Dose: 0.5 mcg/kg/min, 26 mls/hr Documented By: CP Co-signed By: MMNichol Milrinone Lactate/Dextrose (Primacor/D5w) 20,000 mcg in 100 mls @ 3.897 mls/hr IV .Q24H [facility]; Protocol Stop: 06/07/23 19:59 Last Titration: 05/08/23 20:36 Dose: 0.85 mcg/kg/min, 22.1 mls/hr Documented By: Titration: 05/08/23 20:21 Dose: 0.45 mcg/kg/min, 11.7 mls/hr Documented By: Admin: 05/08/23 20:14 Dose: 0.25 mcg/kg/min, 6.5 mls/hr Documented By: CP Co-signed By: MMNichol Morphine Sulfate (Morphine Sulfate 2 Mg/Ml Carp) 2 mg IV NOW STA Stop: 05/08/23 20:53 Last Admin: 05/08/23 20:56 Dose: Not Given Documented By: CP Morphine Sulfate (Morphine Sulfate 2 Mg/Ml Carp) Confirm Administered Dose 2 mg .ROUTE .STK-MED ONE Stop: 05/08/23 20:54 Last Admin: 05/08/23 20:57 Dose: Not Given Documented By: DEX Morphine Sulfate (Morphine Sulfate 2 Mg/Ml Carp) 2 mg IM ONCE ONE Stop: 05/08/23 20:56 Last Admin: 05/08/23 20:55 Dose: 2 mg Documented By: DEX Ondansetron HCl (Ondansetron Inj 2 Mg/Ml 2 Ml Vial) 4 mg IV NOW STA Stop: 05/08/23 20:27 Last Admin: 05/08/23 20:34 Dose: 4 mg Documented By: DEX Phenylephrine HCl (Phenylephrine Hcl 25 Mg/250 Ml Nss) Confirm Administered Dose 25 mg IV .STK-MED ONE Stop: 05/08/23 18:46 Last Admin: 05/08/23 20:16 Dose: Not Given Documented By: DEX Sodium Bicarbonate (Sodium Bicarb 8.4% Inj 50 Meq/50 Ml Syr) Confirm Administered Dose 50 meq IV .STK-MED ONE Stop: 05/08/23 20:42 Last Admin: 05/08/23 20:50 Dose: 50 meq Documented By: DEX Imaging Data Radiologist's Impression: Chest X-Ray 05/08/23 14:30 XR chest 1V portable CLINICAL HISTORY: Chest pain, nonspecific TECHNIQUE: Single frontal radiograph of the chest was obtained. Comparison: Comparison is made to chest radiograph 04/21/2023 FINDINGS: No lines and tubes are seen. Cardiomegaly is noted. There is prominence and cephalization of the vasculature with Suresh B lines seen. No evidence of pleural effusion or pneumothorax. IMPRESSION: Cardiomegaly and moderate pulmonary edema. ACT 112: Negative or not required by law. Electronically signed by: Quinten Mahmood M.D. 05/08/2023 3:34 PM Discharge Plan Visit Data Chief Complaint: Chest Pain Stated Complaint: CHEST PAIN, SOB ED Provider: Bethany Medel Discharge Problem: Chest pain, Pulmonary edema, Acute respiratory failure, Ischemic cardiomyopathy, Ventricular tachycardia Patient Disposition: Admitted As Inpatient Discharge Instructions Interventions: ED Discharge Assessment Last Done: 05/08/23 18:19
[2023-05-08 15:22] LABS: Basophils # (auto) 0.06 K/uL (0.00-0.20); Basophils % (auto) 0.8 %; Eosinophils # (auto) 0.26 K/uL (0.00-0.50); Eosinophils % (auto) 3.4 %; Hematocrit (blood only) 32.3 % (42.0-52.0); Hemoglobin 10.1 g/dl (14.0-18.0); Immature Granulocytes # (auto) 0.04 K/uL (0.01-0.20); Immature Granulocytes % (auto) 0.5 %; Lymphocytes # (auto) 1.77 K/uL (1.20-3.40); Lymphocytes % (auto) 23.1 %; Mean Corpuscular Hemoglobin 26.9 pg (25.0-34.0); Mean Corpuscular Hgb Conc 31.3 g/dL (32.0-36.0); Mean Corpuscular Volume 86.1 fL (80.0-100.0); Mean Platelet Volume 9.9 fL (9.4-12.4); Monocytes # (auto) 0.71 K/uL (0.11-0.59); Monocytes % (auto) 9.3 %; Neutrophils # (auto) 4.81 K/uL (1.40-6.50); Neutrophils % (auto) 62.9 %; Platelet Count 439 K/uL (130-400); RDW Coefficient of Variation 16.4 % (11.5-14.5); RDW Standard Deviation 50.9 fL (36.4-46.3); Red Blood Count 3.75 M/uL (4.70-6.10); White Blood Count 7.65 K/ul (4.8-10.8)
--- NOTE | 2023-05-08 15:35 | XRay Report ---
XR chest 1V portable CLINICAL HISTORY: Chest pain, nonspecific TECHNIQUE: Single frontal radiograph of the chest was obtained. Comparison: Comparison is made to chest radiograph 04/21/2023 FINDINGS: No lines and tubes are seen. Cardiomegaly is noted. There is prominence and cephalization of the vasc ulature with Suresh B lines seen. No evidence of pleural effusion or pneumothorax. IMPRESSION: Cardiomegaly and moderate pulmonary edema. ACT 112: Negative or not required by law. Electronically signed by: Quinten Mahmood M.D. 05/08/2023 3:34 PM
[2023-05-08] MEDS: VANCOMYCIN HCL 1,750 MG in SODIUM CHLORIDE 0.9% 500 ML IV STA (15:37)
[2023-05-08] MEDS: CEFEPIME 20 ML IV STA (15:37)
[2023-05-08 15:55] LABS: Albumin Globulin Ratio 1.2 (0.9-2); Albumin Level 3.4 gm/dl (3.4-5.0); BUN Creatinine Ratio 12.5 (10-20); Creatinine Clr Calc Pharmacy 70.5 ml/min; Est GFR (African American) 92.7 ml/min; Globulin 2.9 gm/dl (2.5-4.0); Potassium 4.2 mmol/L (3.5-5.1); Total Protein 6.3 gm/dl (6.0-8.3)
[2023-05-08] MEDS: metroNIDAZOLE 500 MG/100 ML BAG IV STA (15:55)
[2023-05-08 16:00] LABS: INR 1.1 (0.9-1.1); Partial Thromboplastin Ratio 0.9; Partial Thromboplastin Time 25 Seconds (21-31); Prothrombin Time 11.6 Seconds (9.0-12.0)
[2023-05-08 16:01] LABS: Troponin I High Sensitivity 14.2 pg/ml (0-20)
[2023-05-08] MEDS ORDERED: STAT IV Infusion **Titration per Protocol STA ×3 (16:12→19:47)
[2023-05-08] MEDS: NOREPINEPHRINE/D5W 4 MG/250 ML PLCT IV SCH (16:34)
[2023-05-08] MEDS: FUROSEMIDE INJ 20 MG/2 ML VIAL IV ONE (16:39)
[2023-05-08] MEDS: AMIODARONE 150MG / 100ML D5W IV ONE (17:03)
[2023-05-08] MEDS: AMIODARONE 360MG / 200ML D5W IV ONE (17:15)
[2023-05-08 17:16] LABS: Adenovirus PCR Not Detected (NotDetected); Bordetella parapertussis PCR Not Detected (NotDetected); Bordetella pertussis PCR Not Detected (NotDetected); Chlamydia pneumoniae PCR Not Detected (NotDetected); Coronavirus 229E PCR Not Detected (NotDetected); Coronavirus CoV-2 (COVID19)PCR Not Detected (NotDetected); Coronavirus HKU1 PCR Not Detected (NotDetected); Coronavirus NL63 PCR Not Detected (NotDetected); Coronavirus OC43PCR Not Detected (NotDetected); Human Metapneumovirus PCR Not Detected (NotDetected); Influenza A PCR Not Detected (NotDetected); Influenza B PCR Not Detected (NotDetected); Mycoplasma pneumoniae PCR Not Detected (NotDetected); Parainfluenza Virus 1 PCR Not Detected (NotDetected); Parainfluenza Virus 2 PCR Not Detected (NotDetected); Parainfluenza Virus 3 PCR Not Detected (NotDetected); Parainfluenza Virus 4 PCR Not Detected (NotDetected); Respiratory Syncytial VirusPCR Not Detected (NotDetected); Rhinovirus/Enterovirus PCR Not Detected (NotDetected)
--- NOTE | 2023-05-08 17:16 | History & Physical Report ---
Date of Service May 08, 2023 Assessment & Plan (1) Acute respiratory failure: (2) Cardiogenic shock: (3) Pulmonary edema: (4) Elevated lactic acid level: Plan: This is an 82yo M with a PMH of chronic systolic CHF EF 25%, CAD, hypertension, hyperlipidemia, history of CVA, diabetes diet-controlled, chronic anemia, BPH, skin cancer per records history of A-fib, recent cholecystitis transferred to [facility] and other medical problems listed below who presents today with shortness of breath and chest pain since this afternoon was found to have acute hypoxic respiratory failure in setting of pulmonary edema and cardiogenic shock. Patient transition from high flow oxygen to BiPAP, saturating at 95% Lasix was discontinued during admission at [facility], discharged home on 05/02 with instruction to see PCP about resuming CXR with cardiomegaly and moderate pulmonary edema Received 20 mg IV Lasix but unable to receive more due to hypotension until Levophed started-Dr. Turner just gave additional 40 mg IV for a total of 60 IV so far Requiring levophed for blood pressure support in setting of shock as above, lactate uptrending from 3 to 7 Continue BiPAP for now, initially agreeable to intubation but per discussion with ICU and cardiology was transitioned to DNR/DNI status Mgmt per ICU, cardiology (5) NSVT (nonsustained ventricular tachycardia): (6) Atrial fibrillation with rapid ventricular response: Plan: Continue amiodarone initiated in ED (7) Cholecystitis: Plan: [place]erc [place] [facility], discharged home last week Per reports, experienced hemorrhaging from perc tube site and Eliquis was discontinued for time being (8) DM type 2 (diabetes mellitus, type 2): Plan: Diet controlled Plan discussed with cardiology and ICU. Dispo: admitted to ICU Patient seen in collaboration with Dr. Vidales. Please see addendum. I spent a total of 75 minutes coordinating, documenting, and providing care for this patient excluding time spent in the performance of separately billed services. History of Present Illness Chief Complaint: SOB Primary Care Provider: Adam Siddiqi MD This is an 82yo M with a PMH of chronic systolic CHF EF 25%, CAD, hypertension, hyperlipidemia, history of CVA, diabetes diet-controlled, chronic anemia, BPH, skin cancer per records history of A-fib, recent cholecystitis transferred to [facility] and other medical problems listed below who presents today with shortness of breath and chest pain since this afternoon. History obtained from chart review and at bedside as patient is critically ill on BiPAP. Patient was recently admitted with findings of acute cholecystitis but due to cardiac comorbidities, it was recommended that patient transfer to [facility] for further care. Had perc drain placed for gallbladder and was discharged back home last Sunday. Was not discharged on any oral antibiotics. Lisinopril 2.5 mg PO daily, Lasix 20mg PO daily and Eliquis 5mg PO BID were stopped during admission to [facility] with instruction to touch base with primary care provider about resuming. states that patient has seemed to be in good health and able to help with chores around the house. Has been ambulating independently and even took down Bhupinder decorations outside yesterday. Earlier today, around 1330, patient developed sudden shortness of breath with associated chest pain and came to ED for further evaluation. History of [place] back in the 90s, per at bedside. No other new symptoms at home. No fever, chills, lightheadedness, nausea, vomiting, abdominal pain, dysuria, diarrhea or constipation. No lower extremity swelling, shortness of breath prior to this afternoon, per at bedside. Patient is tolerating BiPAP and feels like he is breathing a bit better. Feels weak. No CP or abdominal pain now. In ED, patient found to be in acute respiratory failure with hypotension, tachycardia and tachypnea. BiPAP was placed and patient now satting at 95%. Received a total of 60 mg IV Lasix during time in ED due to evidence of pulmonary edema on chest x-ray but requiring Levophed to support blood pressure, which is currently 89/66. Due to initial concern for sepsis in setting of recent PERC drain placement, patient was started on empiric vancomycin, cefepime and Flagyl. Cardiology evaluated patient at bedside due to nonsustained V. tach and was started on IV amiodarone. Allergies Allergy/AdvReac Type Severity Reaction Status Date / Time Penicillins Allergy Severe TONGUE Verified 05/08/23 15:44 SWELLING amoxicillin [From Augmentin] AdvReac Unknown Vomiting Verified 05/08/23 15:44 clavulanic acid AdvReac Unknown Vomiting Verified 05/08/23 15:44 [From Augmentin] Home Medications Medication Instructions Recorded Confirmed Type atorvastatin 80 mg tablet 80 mg PO QAM 11/26/18 05/08/23 History aspirin 81 mg tablet,delayed 81 mg PO QAM 01/03/19 05/08/23 History release metoprolol succinate 50 mg 50 mg PO QAM 07/26/20 05/08/23 History tablet,extended release 24 hr spironolactone 25 mg tablet 12.5 mg PO QAM 05/30/21 05/08/23 History finasteride 5 mg tablet 5 mg PO QAM 08/02/22 05/08/23 History tamsulosin 0.4 mg capsule 0.4 mg PO HS 08/02/22 05/08/23 History vit C 250 mg-vit E 90 mg-zinc 40 1 tab PO AMHS 05/08/23 05/08/23 History mg-copper 1 [id number] capsule (PreserVision AREDS-2) Past Med/Surg History Medical History Cholecystitis Septic arthritis of knee, left Cholecystitis with cholelithiasis BPH with obstruction/lower urinary tract symptoms Degenerative disc disease Arthritis History of pyloric stenosis as a child Diabetes mellitus, type 2 NO MEDS History of skin cancer Transient ischemic attack (TIA) AROUND 2019? *NO PROBLEMS FROM EVENT HTN (hypertension) Systolic CHF FOLLOWS DR. LR>PT UNSURE OF CARDIAC HX Ischemic cardiomyopathy CAD (coronary artery disease) 1994-anterior wall [place], no intervention Dyslipidemia DM type 2 (diabetes mellitus, type 2) Surgical History History of colonoscopy History of repair of pyloric stenosis History of tooth extraction History of cardiac cath 1994 History of cataract surgery RT/LEFT History of appendectomy Family History Sister Multiple myeloma Brother Heart disease Other No family history of adverse response to anesthesia Social History Smoking Status: Never smoker Second Hand Exposure: No; Do You Dip or Chew Tobacco: No; Hx Alcohol Use: Yes Alcohol type: hard liquor Hx Substance Use: No Preferred Language: Tamazight Communication Ability: Effective Boarding Machine Operator Required: No Beliefs That Will Affect Care: None marital status: Current Living Situation: Spouse Feels Safe at Home: Yes Assistive Devices: Walker Review of Systems Review of Systems: At least ten systems reviewed and negative except as noted in the HPI. Physical Exam Physical Exam: Please see Dr. Vidales's addendum for physical exam. Results & Data Results & Data Vital Signs (Past 12 Hours) Vital Signs Temp Pulse Pulse Resp BP BP Pulse Ox 05/08/23 16:42 142 H 38 H 97 05/08/23 16:38 167 H 05/08/23 16:25 105 H 05/08/23 16:00 95 H 40 H 84/59 L 97 05/08/23 15:54 119 H 34 H 92 05/08/23 15:45 112 H 36 H 88/61 L 96 05/08/23 15:30 92 H 43 H 85/62 L 94 05/08/23 15:19 94 H 32 H 80/58 L 97 05/08/23 15:01 109 H 33 H 83/52 L 95 05/08/23 14:41 105 H 36 H 73/53 L 97 05/08/23 14:26 35.8 C L 83 18 89/58 L 97 O2 Del Method O2 Flow Rate FiO2 05/08/23 16:42 35 05/08/23 16:38 05/08/23 16:25 05/08/23 16:00 High Flow Nasal Cannula 40 50 05/08/23 15:54 High Flow Nasal Cannula 40 50 05/08/23 15:45 High Flow Nasal Cannula 40 50 05/08/23 15:30 Oxymask 3.5 05/08/23 15:19 Room Air 05/08/23 15:01 Room Air 05/08/23 14:41 Room Air 05/08/23 14:26 Room Air Laboratory Results Short CBC 05/08/23 Range/Units 14:52 WBC 7.65 (4.8-10.8) K/ul Hgb 10.1 L (14.0-18.0) g/dl Hct 32.3 L (42.0-52.0) % Plt Count 439 H (130-400) K/uL BMP 05/08/23 14:52 Sodium 137 Potassium 4.2 Chloride 106 Carbon Dioxide 23 BUN 11 Creatinine 0.88 Glucose 218 H Calcium 9.0 Liver Function 05/08/23 Range/Units 14:52 Total Bilirubin 1.0 (0.2-1.0) mg/dl AST 23 (13-39) U/L ALT 54 H (7-52) U/L Alkaline Phosphatase 131 H (34-104) U/L Albumin 3.4 (3.4-5.0) gm/dl Diagnostic Findings Chest X-Ray 05/08/23 14:30 XR chest 1V portable CLINICAL HISTORY: Chest pain, nonspecific TECHNIQUE: Single frontal radiograph of the chest was obtained. Comparison: Comparison is made to chest radiograph 04/21/2023 FINDINGS: No lines and tubes are seen. Cardiomegaly is noted. There is prominence and cephalization of the vasculature with Suresh B lines seen. No evidence of pleural effusion or pneumothorax. IMPRESSION: Cardiomegaly and moderate pulmonary edema. ACT 112: Negative or not required by law. Electronically signed by: Quinten Mahmood M.D. 05/08/2023 3:34 PM ECG Additional Comments: EKG reviewed - A fib at 117 bpm with LBBB (known), nonspecific ST changes Supervising Physician Co-Signing Physician Notes Pt was seen and examined by myself, Eve Vidales MD on the day of service. Care was coordinated with Paula Finch PA-C. 82yoM presenting with acute hypoxic respiratory failure in the setting of cardiogenic shock. On exam: General: Alert, in distress Skin: No noted rashes or bruises Psych: mood and affect could not be determined HEENT: NC/AT, mask on face Chest: Nontender to palpation. CV: Irregular Resp: increased effort of breathing Abdomen: Soft Extremities: edema in lower extremities bilaterally. Pt hypotensive Requiring pressor support. transferred to the ICU. Otherwise as above. I spent a total [id number] coordinating, documenting, and providing care for this patient excluding time spent in the performance of separately billed services
[2023-05-08] MEDS: FUROSEMIDE 40 MG/4 ML VIAL IV ONE (17:52)
--- NOTE | 2023-05-08 18:20 | Cardiology Consultation ---
Date of Consultation May 08, 2023 Assessment & Plan (1) Pulmonary edema: (2) Cardiogenic shock: (3) NSVT (nonsustained ventricular tachycardia): (4) Atrial fibrillation with rapid ventricular response: (5) Left bundle branch block (LBBB): Plan Patient is a critically ill 82-year-old male with known severe ischemic cardiomyopathy with dilated left ventricle and severe with reduced ejection fraction, persistent atrial fibrillation and left bundle branch block Patient presents now and is seen greater than 4-hour hours after onset of chest pain and dyspnea. Currently in pulmonary edema by exam and chest x-ray requiring respiratory and inotrope support consistent with likely cardiogenic shock with elevated lactate. Component of acute sepsis possible with cultures drawn and antibiotics begun Patient the past has requested conservative management including declining AICD. Will agree to intubation if necessary and can be sedated Plan: Acute myocardial infarction not excluded but contraindications to acute bleeding with recent hemorrhage via cholecystostomy tube per report Will continue pressure support, BiPAP and intubation if necessary though would ultimately like to avoid IV amiodarone initiated for control of heart rate and ventricular tach ycardia observed IV furosemide administered but limited in the setting of hypotension. Hopefully with improved oxygenation and heart rate will see improvement in blood pressure and urinary output. Smith placed In review of above and discussion with and patient would not consider cardiac catheterization or intra-aortic balloon pump at this time. Overall prognosis limited. CODE STATUS noted History of Present Illness Reason for Consultation: Pulmonary edema, nonsustained ventricular tachycardia Requesting Physician: Dr. Medel Attending Physician: Dr. Vidales History of Present Illness Patient is a complex 82-year-old male with recent multiple issues. His underlying cardiac concerns include 1. Ischemic cardiomyopathy with severe LV dysfunction and dilation EF 20-25% echocardiogram April 2023. Longstanding history of conservative management at patient request declining AICD, intervention 2. Coronary artery disease status post remote anterior myocardial infarction 1994 3. Persistent atrial fibrillation previously on anticoagulation with Eliquis 4. Left bundle branch block Patient has a very complex recent history including hospitalization 04/05/2023 with with initial concerns for septic arthritis left knee final diagnosis acute pseudogout Rehospitalized 04/22/2023 with acute cholecystitis/cholelithiasis. Patient transferred to [facility] for management given high risk features. Ultimately underwent cholecystostomy tube placement. Per discharge records course complicated by hemorrhagic drainage, anemia, acute renal insufficiency and hypotension. Ultimately discharged after discontinuing anticoagulation with Eliquis, lisinopril and furosemide also held Patient presents this admission noting approximately 1 PM today developing symptoms of chest pressure and bilateral shoulder pain increasing dyspnea. Initial concerns regarding possible sepsis on ER presentation treated with IV fluids Clinical course worsened in the emergency room with worsening dyspnea and frothy pink sputum production hypoxia requiring respiratory support with BiPAP, blood pressure support with Levophed. Telemetry with atrial fibrillation with rapid response, salvos of nonsustained ventricular tachycardia Cardiology consultation placed At time of examination patient in marked respiratory distress on BiPAP. Systol ic blood pressures 80s rhythm atrial fibrillation rates 130s with nonsustained ventricular tachycardia IV amiodarone initiated for rhythm control Discussed intubation and aggressive management with patient with noted reluctance for aggressive management. Would consider intubation if sedated, medical management Allergies Allergy/AdvReac Type Severity Reaction Status Date / Time Penicillins Allergy Severe TONGUE Verified 05/08/23 15:44 SWELLING amoxicillin [From Augmentin] AdvReac Unknown Vomiting Verified 05/08/23 15:44 clavulanic acid AdvReac Unknown Vomiting Verified 05/08/23 15:44 [From Augmentin] Home Medications Medication Instructions Recorded Confirmed Type atorvastatin 80 mg tablet 80 mg PO QAM 11/26/18 05/08/23 History aspirin 81 mg tablet,delayed 81 mg PO QAM 01/03/19 05/08/23 History release metoprolol succinate 50 mg 50 mg PO QAM 07/26/20 05/08/23 History tablet,extended release 24 hr spironolactone 25 mg tablet 12.5 mg PO QAM 05/30/21 05/08/23 History finasteride 5 mg tablet 5 mg PO QAM 08/02/22 05/08/23 History tamsulosin 0.4 mg capsule 0.4 mg PO HS 08/02/22 05/08/23 History vit C 250 mg-vit E 90 mg-zinc 40 1 tab PO AMHS 05/08/23 05/08/23 History mg-copper 1 [id number] capsule (PreserVision AREDS-2) Patient History Medical History Septic arthritis of knee, left Cholecystitis with cholelithiasis BPH with obstruction/lower urinary tract symptoms Degenerative disc disease Arthritis History of pyloric stenosis as a child Diabetes mellitus, type 2 NO MEDS History of skin cancer Transient ischemic attack (TIA) AROUND 2019? *NO PROBLEMS FROM EVENT HTN (hypertension) Systolic CHF FOLLOWS DR. LR>PT UNSURE OF CARDIAC HX Ischemic cardiomyopathy CAD (coronary artery disease) 1994-anterior wall [place], no intervention Dyslipidemia DM type 2 (diabetes mellitus, type 2) Surgical History History of colonoscopy History of repair of pyloric stenosis History of tooth extraction History of cardiac cath 1994 History of cataract surgery RT/LEFT History of appendectomy Family History Sister Multiple myeloma Brother Heart disease Other No family history of adverse response to anesthesia Social History Smoking Status: Never smoker Second Hand Exposure: No; Do You Dip or Chew Tobacco: No; Hx Alcohol Use: Yes Alcohol type: hard liquor Hx Substance Use: No Preferred Language: Georgian Communication Ability: Effective Signal Manager Required: No Beliefs That Will Affect Care: None marital status: Current Living Situation: Spouse Feels Safe at Home: Yes Assistive Devices: Walker Review of Systems Review of Systems: Other Physical Exam Constitutional: + acute distress and + ill appearing Tachypneic on BiPAP Eyes: PERRL, conjunctivae normal, anicteric sclerae ENMT: external ear and nose normal, oropharynx normal Neck: trachea midline, no thyromegaly Respiratory: + respiratory distress Auscultation: + diminished lung sounds Diffuse rales Cardiovascular: Rate/Rhythm: + tachycardic and + irregularly irregular Vessels: + JVD Extremities: no edema Gastrointestinal (Abdomen): Cholecystostomy tube in place Results & Data Vital Signs (Past 12 Hours) Vital Signs Temp Pulse Pulse Resp BP BP Pulse Ox 05/08/23 17:01 126 H 34 H 89/66 L 95 05/08/23 16:46 87/67 L 05/08/23 16:46 129 H 37 H 86/59 L 98 05/08/23 16:42 142 H 38 H 97 05/08/23 16:38 167 H 05/08/23 16:25 105 H 05/08/23 16:01 124 H 40 H 84/59 L 99 05/08/23 16:00 95 H 40 H 84/59 L 97 05/08/23 15:54 119 H 34 H 92 05/08/23 15:45 112 H 36 H 88/61 L 96 05/08/23 15:30 92 H 43 H 85/62 L 94 05/08/23 15:19 94 H 32 H 80/58 L 97 05/08/23 15:01 109 H 33 H 83/52 L 95 05/08/23 14:41 105 H 36 H 73/53 L 97 05/08/23 14:26 35.8 C L 83 18 89/58 L 97 O2 Del Method O2 Flow Rate FiO2 05/08/23 17:01 BiPAP 30 05/08/23 16:46 05/08/23 16:46 BiPAP 30 05/08/23 16:42 35 05/08/23 16:38 05/08/23 16:25 05/08/23 16:01 High Flow Nasal Cannula 40 50 05/08/23 16:00 High Flow Nasal Cannula 40 50 05/08/23 15:54 High Flow Nasal Cannula 40 50 05/08/23 15:45 High Flow Nasal Cannula 40 50 05/08/23 15:30 Oxymask 3.5 05/08/23 15:19 Room Air 05/08/23 15:01 Room Air 05/08/23 14:41 Room Air 05/08/23 14:26 Room Air Laboratory Results Laboratory Results - last 24 hr 05/08/23 05/08/23 05/08/23 14:52 14:59 16:13 WBC 7.65 RBC 3.75 L Hgb 10.1 L Hct 32.3 L MCV 86.1 MCH 26.9 MCHC 31.3 L RDW Std Deviation 50.9 H RDW Coeff of [place] 16.4 H Plt Count 439 H MPV 9.9 Immature Gran % (Auto) 0.5 Neut % (Auto) 62.9 Lymph % (Auto) 23.1 [place] % (Auto) 9.3 Eos % (Auto) 3.4 Baso % (Auto) 0.8 Neut # (Auto) 4.81 Lymph # (Auto) 1.77 [place] # (Auto) 0.71 H Eos # (Auto) 0.26 Baso # (Auto) 0.06 Immature Gran # (Auto) 0.04 PT 11.6 INR 1.1 APTT 25 PTT Ratio 0.9 Sodium 137 Potassium 4.2 Chloride 106 Carbon Dioxide 23 Anion Gap 8 BUN 11 Creatinine 0.88 Est Cr Clr Drug Dosing 70.5 Est GFR ( Amer) 92.7 Est GFR (Non-Af Amer) 80.0 BUN/Creatinine Ratio 12.5 Glucose 218 H Lactate 3.0 H* Calcium 9.0 Total Bilirubin 1.0 AST 23 ALT 54 H Alkaline Phosphatase 131 H Troponin I High Sens 14.2 B-Natriuretic Peptide 743 H Total Protein 6.3 Albumin 3.4 Globulin 2.9 Albumin/Globulin Ratio 1.2 Lipase 180 H Procalcitonin < 0.02 Urine Color Urine Appearance Urine pH Ur Specific [place] Urine Protein Urine Glucose (UA) Urine Ketones Urine Blood Urine Nitrite Urine Bilirubin Urine Urobilinogen Ur Leukocyte Esterase Adenovirus (PCR) Not Detected B. pertussis DNA (PCR) Not Detected B.parapertussis DNA PCR Not Detected C. pneumoniae DNA (PCR) Not Detected Coronavirus OC43 (PCR) Not Detected Coronavirus HKU1 (PCR) Not Detected Coronavirus 229E (PCR) Not Detected SARS-CoV-2 (PCR) Not Detected Coronavirus NL63 (PCR) Not Detected Human Metapneumovir PCR Not Detected Influenza Type A (PCR) Not Detected Influenza Type B (PCR) Not Detected M. pneumoniae (PCR) Not Detected Parainfluenza 1 (PCR) Not Detected Parainfluenza 2 (PCR) Not Detected Parainfluenza 3 (PCR) Not Detected Parainfluenza 4 (PCR) Not Detected RSV (PCR) Not Detected Entero/Rhino (PCR) Not Detected 05/08/23 05/08/23 17:23 18:00 WBC RBC Hgb Hct MCV MCH MCHC RDW Std Deviation RDW Coeff of [place] Plt Count MPV Immature Gran % (Auto) Neut % (Auto) Lymph % (Auto) [place] % (Auto) Eos % (Auto) Baso % (Auto) Neut # (Auto) Lymph # (Auto) [place] # (Auto) Eos # (Auto) Baso # (Auto) Immature Gran # (Auto) PT INR APTT PTT Ratio Sodium Potassium Chloride Carbon Dioxide Anion Gap BUN Creatinine Est Cr Clr Drug Dosing Est GFR ( Amer) Est GFR (Non-Af Amer) BUN/Creatinine Ratio Glucose Lactate 6.7 H* Calcium Total Bilirubin AST ALT Alkaline Phosphatase Troponin I High Sens B-Natriuretic Peptide Total Protein Albumin Globulin Albumin/Globulin Ratio Lipase Procalcitonin Urine Color Yellow Urine Appearance Clear Urine pH 5.5 Ur Specific [place] 1.012 Urine Protein Negative Urine Glucose (UA) Negative Urine Ketones Negative Urine Blood Negative Urine Nitrite Negative Urine Bilirubin Negative Urine Urobilinogen Negative Ur Leukocyte Esterase Negative Adenovirus (PCR) B. pertussis DNA (PCR) B.parapertussis DNA PCR C. pneumoniae DNA (PCR) Coronavirus OC43 (PCR) Coronavirus HKU1 (PCR) Coronavirus 229E (PCR) SARS-CoV-2 (PCR) Coronavirus NL63 (PCR) Human Metapneumovir PCR Influenza Type A (PCR) Influenza Type B (PCR) M. pneumoniae (PCR) Parainfluenza 1 (PCR) Parainfluenza 2 (PCR) Parainfluenza 3 (PCR) Parainfluenza 4 (PCR) RSV (PCR) Entero/Rhino (PCR)
[2023-05-08 18:23] LABS: Appearance Urine Clear (Clear); Bilirubin Urine Negative (Negative); Blood Urine Negative (Negative); Color Urine Yellow; Glucose Urine UA Negative (Negative); Ketones Urine Negative (Negative); Leukocyte Esterase Urine Negative (Negative); Nitrite Urine Negative (Negative); Protein Urine Negative (Negative); Specific Gravity Urine 1.012 (1.000-1.030); Urobilinogen Urine Negative (Negative); pH Urine 5.5 (4.5-7.5)
--- NOTE | 2023-05-08 19:12 | Critical Care Consultation ---
Date of Consultation May 08, 2023 Assessment & Plan (1) Cardiogenic shock: (2) Atrial fibrillation with rapid ventricular response: (3) Acute respiratory failure: (4) Cholecystitis with cholelithiasis: (5) Permanent atrial fibrillation: (6) Left bundle branch block (LBBB): (7) Ischemic cardiomyopathy: (8) CAD (coronary artery disease): (9) DM type 2 (diabetes mellitus, type 2): Plan Reason Critically Ill: 82 YOM presents to ICU in cardiogenic shock with MAPS 40-50s rapidly placed arterial line and central access, started on vasopressors and inotropic therapy. Neuro - No acute process CAM ICU: Negative Cardiac - Cardiogenic shock, elevated HsCTNI, ICM with HFrEF with ~EF 20%, HLD - Patient presents in acute cardiogenic shock following episode of chest pain earlier today- he is with previously known poor EF <20% and with worsening bilateral pulmonary edema - Therapy will be guided to decreasing preload with IV diuretics, Inotropic support with Milrinone, and Vasopressor support with NEOsynepherine - He has very high mortality at this time and will unlikely be stabilized enough for coronary evaluation or angiography and/or mechanical inotropic support at this time - CVL was placed emergently and sterile with ScVO2 of 32% confirming severe cardiogenic shock as well as increasing lactic acid and organ dysfunction - He remains dependant on BiPAP and unfortunately I do not feel intubation and mechanical ventilation will provide clinical benefit as he has high chance of arrest and likelihood of coming off the ventilatory will be low - His understood this and said he always stated he did not want to be kept alive on full life support and mechanical ventilation - his code status was changed to DNR/DNI - Appreciate Dr. Turner and Cardiology evaluation and assistance at this time Respiratory - Hypoxic Respiratory failure, pulmonary edema - Both as a result for severe cardiogenic shock - Support with BiPAP as able- initially with improved PH and PaO2 GI - Cholecystitis with Biliary drain in place - Had performed at [facility] a few weeks ago- at this time he is without WBC elevation and/or elevated LFTs/Bili - do not feel at this time that sepsis is playing a role RENAL/LYTES - NO acute needs - Currently with minimal urine output despite 60mg IV lasix - No acute needs ENDO - DMII - ICU hyperglycemic protocol HEME - NO acute needs ID - No acute needs LINES/IV ACCESS - CVL, [place], Etienne catheter Continue use of these lines DVT PROPHYLAXIS - SCDS - Hold on chemoprophylaxis at this time secondary to bleeding risk as he has reportedly demonstrated bleeding with heparin and eliquis in regards to his biliary drain DISPO: ICU while on vasopressors and inotropic support Family: is at bedside and as discussed with cardiology present she understands his clinical severity, he has continued to require escalation of vasopressor and inotropic medications, his chest xray is worsening with pulmonary infiltrates. Decision was eventually made to DNI and as he progressed 2mg of morphine was given to provide him relief from gasping and air hunger. Patient did at 2112 with at bedside. See separate note. I have personally spent 74 minutes of critical care time in the direct management of this patient. This is a life/limb threatening event. This includes time spent evaluating patient, direct bedside care, chart review, placing orders, interpretation of diagnostic studies, discussion with consultants, patient, and family members, as well as other required patient management activities. This time is exclusive of all separately billable procedures, time and separate from and in addition to any other critical care service time. Thank you for allowing us to participate in the care of this patient. Please refer to my attending physician's documentation for any further recommendations. History of Present Illness Reason for Consultation: cardiogenic shock Requesting Physician: josé vidales Attending Physician: José Vidales MD History of Present Illness 82 YOM with medical history of ICM with LVH and HFrEF (20%), previously declined AICD therapy, persistent afib, LBB, which has also been complicated by GBD where he was transferred to [facility] a few weeks ago and had a biliary drain placed at that time, which was also complicated by bleeding. He was discharged home it appears with discontinuation of his Eliquis and Lasix. He presented to the EMD today with complaints of chest pain as well as fatigue and weakness. He was taken back to resuscitation bay and had quickly decompensated from a respiratory and hemodynamic status, volume challenge was discontinued and lasix was provided. He is awake and able to talk through the BiPAP mask and feels that his breathing is stable at this time. He was initiated on LEVOPHED in the EMD and upon arrival to the ICU this was quickly changed to NEOSYNEPHERINE. Unable to obtain measurable blood pressure on arrival to the ICU and patient was immediately prepped for arterial line and CVL access. See separate procedure notes. He is accompanied by his . Overall the patient appears to be in full cardiogenic shock with last EF 20% at best, he is with pulmonary edema and dusky fingertips and cool extremities, with very weak pulses. Did discuss the case at the bedside with his and Dr. Turner (Curatorial Specialist). understands that this he is gravely ill at this time and likely with high mortality. She understands that we will continue full support at this time and we are hopeful that he will rebound. Will try to stave off intubation. 2030- did have another discussion with patient and at bedside as he is reached medical maximal support and will either improve or worsen, and placing him on a ventilator at this point will not likely benefit him as his heart is still severely weak, and he is likely to suffer ang intubation arrest or arrest following intubation. He made hand gestures that he did with his was pointed to mask and then to straight line and hands up. His agreed that if she is able to talk to him and be with him that she doesn't want him to suffer and he said prior times he did not want to be on full life support. We changed his code status to DNR/DNI and elected for morphine to keep him from having air hunger. We will continue support until , which is likely imminent at this juncture in time. Allergies Allergy/AdvReac Type Severity Reaction Status Date / Time Penicillins Allergy Severe TONGUE Verified 05/08/23 15:44 SWELLING amoxicillin [From Augmentin] AdvReac Unknown Vomiting Verified 05/08/23 15:44 clavulanic acid AdvReac Unknown Vomiting Verified 05/08/23 15:44 [From Augmentin] Home Medications Medication Instructions Recorded Confirmed Type atorvastatin 80 mg tablet 80 mg PO QAM 11/26/18 05/08/23 History aspirin 81 mg tablet,delayed 81 mg PO QAM 01/03/19 05/08/23 History release metoprolol succinate 50 mg 50 mg PO QAM 07/26/20 05/08/23 History tablet,extended release 24 hr spironolactone 25 mg tablet 12.5 mg PO QAM 05/30/21 05/08/23 History finasteride 5 mg tablet 5 mg PO QAM 08/02/22 05/08/23 History tamsulosin 0.4 mg capsule 0.4 mg PO HS 08/02/22 05/08/23 History vit C 250 mg-vit E 90 mg-zinc 40 1 tab PO AMHS 05/08/23 05/08/23 History mg-copper 1 [id number] capsule (PreserVision AREDS-2) Patient History Medical History Cholecystitis Septic arthritis of knee, left Cholecystitis with cholelithiasis BPH with obstruction/lower urinary tract symptoms Degenerative disc disease Arthritis History of pyloric stenosis as a child Diabetes mellitus, type 2 NO MEDS History of skin cancer Transient ischemic attack (TIA) AROUND 2019? *NO PROBLEMS FROM EVENT HTN (hypertension) Systolic CHF FOLLOWS DR. LR>PT UNSURE OF CARDIAC HX Ischemic cardiomyopathy CAD (coronary artery disease) 1994-anterior wall [place], no intervention Dyslipidemia DM type 2 (diabetes mellitus, type 2) Surgical History History of colonoscopy History of repair of pyloric stenosis History of tooth extraction History of cardiac cath 1994 History of cataract surgery RT/LEFT History of appendectomy Family History Sister Multiple myeloma Brother Heart disease Other No family history of adverse response to anesthesia Social History Smoking Status: Never smoker Second Hand Exposure: No; Do You Dip or Chew Tobacco: No; Hx Alcohol Use: Yes Alcohol type: hard liquor Hx Substance Use: No Preferred Language: Sami Communication Ability: Effective [employer] Principal Required: No Beliefs That Will Affect Care: None marital status: Current Living Situation: Spouse Feels Safe at Home: Yes Assistive Devices: Walker Review of Systems Review of Systems: unable to peform at this time Physical Exam Physical Exam: PHYSICAL EXAM: General: awake, cool and clammy with tachypnea Head: Normocephalic, atraumatic ENT: PERRLA, EOMI, no pharyngeal exudate, mucous membranes dry Neuro: AAO x 3, speech clear and appropriate, strength intact bilaterally 5/5, sensation intact and equal all extremities Chest: equal rise and fall of the chest,using accessory muscles to breathe and is with coarse crackles throughout Cardiac: irregular rate and rhythm, telemetry reviewed- afib with LBB skin warm dry, cap refill <3 seconds, peripheral pulses +2 no JVD, systolic murmur, 2+ edema to lower extremities GI: softly distended soft, nontender to palpation, biliary drain in place : etienne to gravity minimal urine output at this time Skin: cool and clammy with some areas of bruising, nail beds are dusky in color, Results & Data Results & Data Vital Signs (Past 12 Hours) Vital Signs Temp Pulse Pulse Resp BP BP Pulse Ox 05/08/23 17:01 126 H 34 H 89/66 L 95 05/08/23 16:46 87/67 L 05/08/23 16:46 129 H 37 H 86/59 L 98 05/08/23 16:42 142 H 38 H 97 05/08/23 16:38 167 H 05/08/23 16:25 105 H 05/08/23 16:01 124 H 40 H 84/59 L 99 05/08/23 16:00 95 H 40 H 84/59 L 97 05/08/23 15:54 119 H 34 H 92 05/08/23 15:45 112 H 36 H 88/61 L 96 05/08/23 15:30 92 H 43 H 85/62 L 94 05/08/23 15:19 94 H 32 H 80/58 L 97 05/08/23 15:01 109 H 33 H 83/52 L 95 05/08/23 14:41 105 H 36 H 73/53 L 97 05/08/23 14:26 35.8 C L 83 18 89/58 L 97 O2 Del Method O2 Flow Rate FiO2 05/08/23 17:01 BiPAP 30 05/08/23 16:46 05/08/23 16:46 BiPAP 30 05/08/23 16:42 35 05/08/23 16:38 05/08/23 16:25 05/08/23 16:01 High Flow Nasal Cannula 40 50 05/08/23 16:00 High Flow Nasal Cannula 40 50 05/08/23 15:54 High Flow Nasal Cannula 40 50 05/08/23 15:45 High Flow Nasal Cannula 40 50 05/08/23 15:30 Oxymask 3.5 05/08/23 15:19 Room Air 05/08/23 15:01 Room Air 05/08/23 14:41 Room Air 05/08/23 14:26 Room Air Laboratory Results Abnormal lab results 05/08/23 05/08/23 05/08/23 Range/Units 14:52 14:59 16:13 RBC 3.75 L (4.70-6.10) M/uL Hgb 10.1 L (14.0-18.0) g/dl POC Hgb (14.0-18.0) g/dl Hct 32.3 L (42.0-52.0) % POC Hct (42-52) % MCHC 31.3 L (32.0-36.0) g/dL RDW Std Deviation 50.9 H (36.4-46.3) fL RDW Coeff of Earl 16.4 H (11.5-14.5) % Plt Count 439 H (130-400) K/uL Moffat # (Auto) 0.71 H (0.11-0.59) K/uL POC pH (7.35-7.45) POC pCO2 (35-46) mmHg POC pO2 (80-95) mmHg POC HCO3 (19-24) juliane/L POC Total CO2 (24-31) mmol/L POC Base Excess (-9-1.8) juliane/L POC ABG O2 Sat (90-95) % Glucose 218 H (70-99(Fasting)) mg/dl Lactate 3.0 H* (0.4-2.0) mmol/L ALT 54 H (7-52) U/L Alkaline Phosphatase 131 H (34-104) U/L B-Natriuretic Peptide 743 H (0-100) pg/ml Lipase 180 H (11-82) U/L 05/08/23 05/08/23 05/08/23 Range/Units 17:23 19:26 19:53 RBC (4.70-6.10) M/uL Hgb (14.0-18.0) g/dl POC Hgb 11.6 L 11.6 L (14.0-18.0) g/dl Hct (42.0-52.0) % POC Hct 34 L 34 L (42-52) % MCHC (32.0-36.0) g/dL RDW Std Deviation (36.4-46.3) fL RDW Coeff of Earl (11.5-14.5) % Plt Count (130-400) K/uL Moffat # (Auto) (0.11-0.59) K/uL POC pH 7.29 L 7.23 L (7.35-7.45) POC pCO2 25 L (35-46) mmHg POC pO2 < 32 L (80-95) mmHg POC HCO3 12 L 16 L (19-24) juliane/L POC Total CO2 13 L 17 L (24-31) mmol/L POC Base Excess -15.0 L -12.0 L (-9-1.8) juliane/L POC ABG O2 Sat 96.0 H 32.0 L (90-95) % Glucose (70-99(Fasting)) mg/dl Lactate 6.7 H* (0.4-2.0) mmol/L ALT (7-52) U/L Alkaline Phosphatase (34-104) U/L B-Natriuretic Peptide (0-100) pg/ml Lipase (11-82) U/L Diagnostic Findings Chest X-Ray 05/08/23 14:30 XR chest 1V portable CLINICAL HISTORY: Chest pain, nonspecific TECHNIQUE: Single frontal radiograph of the chest was obtained. Comparison: Comparison is made to chest radiograph 04/21/2023 FINDINGS: No lines and tubes are seen. Cardiomegaly is noted. There is prominence and cephalization of the vasculature with Suresh B lines seen. No evidence of pleural effusion or pneumothorax. IMPRESSION: Cardiomegaly and moderate pulmonary edema. ACT 112: Negative or not required by law. Electronically signed by: Quinten Mahmood M.D. 05/08/2023 3:34 PM Medications Administered Phenylephrine HCl (Phenylephrine/Nss) 25 mg in 250 mls @ 25.98 mls/hr IV .Q9H38M [facility]; Protocol Stop: 06/07/23 18:42 Last Admin: 05/08/23 20:58 Dose: 10 mcg/kg/min, 519.6 mls/hr Documented By: DEX Co-signed By: MMNichol Titration: 05/08/23 20:55 Dose: Infused Documented By: DEX Co-signed By: MMG Titration: 05/08/23 20:36 Dose: 10 mcg/kg/min, 519.6 mls/hr Documented By: CP Co-signed By: CF Titration: 05/08/23 20:21 Dose: 7 mcg/kg/min, 363.7 mls/hr Documented By: CP Co-signed By: ISHA Admin: 05/08/23 20:16 Dose: 0.5 mcg/kg/min, 26 mls/hr Documented By: CP Co-signed By: ISHA Milrinone Lactate/Dextrose (Primacor/D5w) 20,000 mcg in 100 mls @ 3.897 mls/hr IV .Q24H ERNESTO; Protocol Stop: 06/07/23 19:59 Last Titration: 05/08/23 20:36 Dose: 0.85 mcg/kg/min, 22.1 mls/hr Documented By: Titration: 05/08/23 20:21 Dose: 0.45 mcg/kg/min, 11.7 mls/hr Documented By: Admin: 05/08/23 20:14 Dose: 0.25 mcg/kg/min, 6.5 mls/hr Documented By: CP Co-signed By: ISHA Discontinued Medications Amiodarone HCl/Dextrose (Amiodarone 360mg / 200ml D5w) Confirm Administered Dose 360 mg IV .STK-MED ONE Stop: 05/08/23 16:54 Last Admin: 05/08/23 17:15 Dose: 360 mg Documented By: VIKAS Co-signed By: [facility] Amiodarone HCl/Dextrose (Amiodarone 150mg / 100ml D5w) Confirm Administered Dose 150 mg IV .STK-MED ONE Stop: 05/08/23 16:55 Last Admin: 05/08/23 17:03 Dose: 150 mg Documented By: VIKAS Co-signed By: ABDI Furosemide (Furosemide Inj 20 Mg/2 Ml Vial) 20 mg IV ONE ONE Stop: 05/08/23 16:12 Last Admin: 05/08/23 16:39 Dose: 20 mg Documented By: MANUELAT Furosemide (Furosemide 40 Mg/4 Ml Vial) 40 mg IV ONE ONE Stop: 05/08/23 17:50 Last Admin: 05/08/23 17:52 Dose: 40 mg Documented By: MANUELAT Cefepime HCl (Maxipime) 20 mls @ 5 mls/min IV NOW STA Stop: 05/08/23 15:14 Last Admin: 05/08/23 15:37 Dose: 5 mls/min Documented By: VIKAS Metronidazole (Flagyl) 500 mg in 100 mls @ 100 mls/hr IV NOW STA Stop: 05/08/23 16:11 Last Infusion: 05/08/23 20:23 Dose: Infused Documented By: Admin: 05/08/23 15:55 Dose: 100 mls/hr Documented By: VIKAS Vancomycin HCl 1,750 mg/ (Sodium Chloride) 535 mls @ 200 mls/hr IV NOW STA Stop: 05/08/23 17:52 Last Admin: 05/08/23 15:37 Dose: 200 mls/hr Documented By: VIKAS Sodium Chloride (Nss) 500 mls @ 999 mls/hr IV .Q31M ONE Stop: 05/08/23 15:36 Last Infusion: 05/08/23 15:20 Dose: Infused Documented By: Admin: 05/08/23 15:00 Dose: 999 mls/hr Documented By: VIKAS Norepinephrine Bitartrate (Levophed/D5w) 4 mg in 250 mls @ 22.733 mls/hr IV .Q11H ERNESTO; Protocol Stop: 06/07/23 16:14 Last Titration: 05/08/23 17:47 Dose: 0.07 mcg/kg/min, 22.7 mls/hr Documented By: Admin: 05/08/23 16:34 Dose: 0.05 mcg/kg/min, 16.2 mls/hr Documented By: VIKAS Co-signed By: JOSE Morphine Sulfate (Morphine Sulfate 2 Mg/Ml Carp) 2 mg IV NOW STA Stop: 05/08/23 20:53 Last Admin: 05/08/23 20:56 Dose: Not Given Documented By: DEX Morphine Sulfate (Morphine Sulfate 2 Mg/Ml Carp) Confirm Administered Dose 2 mg .ROUTE .STK-MED ONE Stop: 05/08/23 20:54 Last Admin: 05/08/23 20:57 Dose: Not Given Documented By: DEX Morphine Sulfate (Morphine Sulfate 2 Mg/Ml Carp) 2 mg IM ONCE ONE Stop: 05/08/23 20:56 Last Admin: 05/08/23 20:55 Dose: 2 mg Documented By: DEX Ondansetron HCl (Ondansetron Inj 2 Mg/Ml 2 Ml Vial) 4 mg IV NOW STA Stop: 05/08/23 20:27 Last Admin: 05/08/23 20:34 Dose: 4 mg Documented By: DEX Phenylephrine HCl (Phenylephrine Hcl 25 Mg/250 Ml Nss) Confirm Administered Dose 25 mg IV .STK-MED ONE Stop: 05/08/23 18:46 Last Admin: 05/08/23 20:16 Dose: Not Given Documented By: DEX Sodium Bicarbonate (Sodium Bicarb 8.4% Inj 50 Meq/50 Ml Syr) Confirm Administered Dose 50 meq IV .STK-MED ONE Stop: 05/08/23 20:42 Last Admin: 05/08/23 20:50 Dose: 50 meq Documented By: DEX Coding Level of Care Code 77880 CRITICAL CARE EA ADD 30M Diagnoses Cardiogenic shock R57.0 Atrial fibrillation with rapid ventricular response I48.91 Acute respiratory failure J96.00 Cholecystitis with cholelithiasis K80.10 Permanent atrial fibrillation I48.21 Left bundle branch block (LBBB) I44.7 Ischemic cardiomyopathy I25.5 CAD (coronary artery disease) I25.10 DM type 2 (diabetes mellitus, type 2) E11.9
--- NOTE | 2023-05-08 19:12 | Procedure Note ---
Procedure Note Date of Service May 08, 2023 Note ARTERIAL LINE PROCEDURE NOTE: Procedure: Arterial Line Placement Proceduralist: Panda CORNEJO ([facility] Attending Physician: Dr. MENDIETA Indication: Monitoring on Pressors Anesthesia: [x]Lidocaine 1% Emergent Consent implied as patient is in cardiogenic shock with worsening hemodyanmics. Did discuss need of procedures with the patient and that benefits at this time greatly outweighed risk. Patient said " do what we need to do". A time-out was completed verifying correct patient, procedure, site, positioning, and implant(s) or special equipment if applicable. Allens test was performed to ensure adequate perfusion. Patients LEFT wrist was prepped and draped in the usual sterile fashion. Ultrasound guidance was used to aid needle placement. A 20g Arrow arterial line was introduced into the LEFT RADIAL artery. Catheter was threaded, and the needle was removed with appropriate blood return. Good waveform was observed. The patient tolerated the procedure well. With no immediate complications noted. Line was secured with suture and sterile dressing was applied. Attempts x2. Blood Loss: Minimal Complications: None Artery Identified: YES Complications: NONE Patient tolerated procedure: WELL Coding CPT Codes Tubes, Drains, and Vasc Access - Tubes, Drains, and Vasc Access: [id number] Arterial Cath/Cannulation Sampling/Monitoring/Transfusion ([id number]) [facility] [place] Codes (Charges) Tubes, Drains, and Vasc Access Procedure 1: Tubes, Drains, and Vasc Access: [id number] Arterial Cath/Cannulation Sampling/Monitoring/Transfusion
--- NOTE | 2023-05-08 19:12 | Procedure Note ---
Procedure Note Date of Service May 08, 2023 Note INTERNAL JUGULAR CENTRAL LINE PROCEDURE NOTE: Procedure: Internal Jugular Central Line Placement Proceduralist: Panda CORNEJO ([facility] Attending: Dr. MENDIETA Indication: Central Drug Administration, Poor Venous Access, Multiple Lab Draws Necessary, etc. Anesthesia: [x]Lidocaine 1% Emergent Consent was implied as patient is wanting full hemodynamic support at this time and with worsening cardiogenic shock requiring vasopressors and inotropic medications. Was able to discuss the need and benefit of procedure with risks, discussed that benefits at this time outweigh the risks and patient responded with thumbs up and " do what we have to do". A time-out was completed verifying correct patient, procedure, site, positioning. Patient was placed semi Recumbant as limited by his respiratory status. The patient's right IJ was scouted prior to procedure for adequate target. Patients RIGHT Neck was cleansed and draped in the typical sterile fashion using Chloraprep. The Internal Jugular Vein and Carotid Artery were identified using ultrasound. The superficial tissue was anesthetized using 5 mL of 1% lidocaine without epinephrine under direct visualization with the ultrasound. After adequate anesthetization was achieved, the Internal Jugular vein was cannulated under direct ultrasound guidance using an introducer needle on a syringe. Good venous blood return was maintained prior to removal of syringe from introducer needle. Using Seldinger Technique, a guide wire was advanced through the introducer needle without resistance. The introducer needle was removed and ultrasound images were obtained of the guide wire within the Internal Jugular Vein and saved to the patients medical record. A small incision was made in penetrating fashion at the guide wire insertion site utilizing an 11 blade scalpel. The dilator was advanced to the vessel without resistance. The dilator was exchanged for the triple lumen catheter which was advanced into the vessel without resistance. The guide wire was removed intact from the catheter without issue. Claves were placed on each catheter tip with confirmation of good blood flow from each lumen. Each port was easily flushed with sterile saline. The catheter was placed at 17 cm and sutured in place. BioPatch was applied to the catheter and a sterile Tegaderm dressing was applied over the catheter with careful attention to sterility. Patient tolerated procedure well. No immediate complications were met. Post procedure x-ray was completed, placement was appropriate and no pneumothorax was noted. Images obtained are saved for permanent record Artery AND Vein visualized: YES Compressible Vein: YES Confirmed as well with color flow and doppler Guidewire or Short Catheter seen in vein prior to dilation: YES Images obtained are NOT saved for permanent record as this was urgent/emergent. Coding CPT Codes Tubes, Drains, and Vasc Access - Tubes, Drains, and Vasc Access: [id number] Insertion Of Non-tunneled Catheter Age 5 Yrs> ([id number]) [facility] [place] Procedure Codes (Charges) Tubes, Drains, and Vasc Access Procedure 1: Tubes, Drains, and Vasc Access: [id number] Insertion Of Non-tunneled Catheter Age 5 Yrs>
[2023-05-08 19:45] LABS: iSTAT Arterial Blood Gas HCO3 12 meg/L (19-24); iSTAT Arterial Blood Gas pCO2 25 mmHg (35-46); iSTAT Arterial Blood Gas pH 7.29 (7.35-7.45); iSTAT Arterial Blood Gas pO2 88 mmHg (80-95); iSTAT Carbon Dioxide 13 mmol/L (24-31); iSTAT Hematocrit 34 % (42-52); iSTAT Hemoglobin 11.6 g/dl (14.0-18.0); iSTAT Potassium 4.4 mmol/L (3.3-5.0); iSTAT Sodium 136 mmol/L (135-144)
[2023-05-08 20:13] LABS: iSTAT Arterial Blood Gas HCO3 16 meg/L (19-24); iSTAT Arterial Blood Gas pCO2 38 mmHg (35-46); iSTAT Arterial Blood Gas pH 7.23 (7.35-7.45); iSTAT Arterial Blood Gas pO2 < 32 mmHg (80-95); iSTAT Carbon Dioxide 17 mmol/L (24-31); iSTAT Hematocrit 34 % (42-52); iSTAT Hemoglobin 11.6 g/dl (14.0-18.0); iSTAT Potassium 4.5 mmol/L (3.3-5.0); iSTAT Sodium 137 mmol/L (135-144)
[2023-05-08] MEDS: MILRINONE LACTATE/D5W 20,000 MCG/100 ML BAG IV SCH (20:14)
[2023-05-08] MEDS: PHENYLEPHRINE HCL 25 MG/250 ML NSS IV ONE (20:16)
[2023-05-08] MEDS: PHENYLEPHRINE/NSS 25 MG/250 ML BAG IV SCH (20:16)
--- NOTE | 2023-05-08 20:22 | Communication Note ---
Date of Service: May 08, 2023 Patient read in the intensive care unit, central line, arterial line placed by mercerizer machine operator staff. Maintaining oxygen saturations on BiPAP but with some respiratory distress Blood pressures relatively low despite inotropic support. Mixed venous saturation 32% Echocardiogram 04/22/2023 reviewed personally Study at that time demonstrated LV dilation with extensive scar involving inferior inferoseptum, anterior septum and apex with apical expansion EF 15% with moderate or greater mitral insufficiency, dilated atria Discussed care with Panda De Paz Inotropic support initiated with milrinone Continue diuresis as blood pressure allows Respiratory support with BiPAP Per review of records and discussion with patient had hemorrhagic drainage from cholecystostomy tube with IV heparin on recent admission resulting in holding anticoagulant If substantial rise in troponin may consider instituting Discussed with overall findings of cardiogenic shock and poor prognosis Patient prior wishes did not include aggressive management and patient previously declined despite well discussed benefits including AICD All involved aware
[2023-05-08] MEDS: ONDANSETRON INJ 2 MG/ML 2 ML VIAL IV STA (20:34)
[2023-05-08] MEDS: SODIUM BICARB 8.4% INJ 50 MEQ/50 ML SYR IV ONE (20:50)
[2023-05-08] MEDS: MoRPHine SULFATE 2 MG/ML CARP IM ONE (20:55)
[2023-05-08] MEDS: MoRPHine SULFATE 2 MG/ML CARP IV STA (20:56)
[2023-05-08] MEDS: MoRPHine SULFATE 2 MG/ML CARP ONE (20:57)
[2023-05-08] MEDS ORDERED: ICU Protocol for HYPERglycemia SCH ×2 (21:00)
--- NOTE | 2023-05-08 21:41 | Death Pronouncement Note ---
Date of Service May 08, 2023 Pronouncement Note Admission Date Admission Date: May 08, 2023 PRONOUNCEMENT NOTE - Date: 05/07/33 Time: 2112 Patients rhythm of asystole at 2112 and for pronouncement following PEA to asystole in setting of cardiogenic shock maxed on medical therapy and DNR/DNI In short, 82 YOM with medical history of ICM with LVH and HFrEF (20%), previously declined AICD therapy, persistent afib, LBB, which has also been complicated by GBD where he was transferred to [facility] a few weeks ago and had a biliary drain placed at that time, which was also complicated by bleeding. He was discharged home it appears with discontinuation of his Eliquis and Lasix. He presented to the EMD today with complaints of chest pain as well as fatigue and weakness. He was taken back to resuscitation bay and had quickly decompensated from a respiratory and hemodynamic status, volume challenge was discontinued and lasix was provided. He is awake and able to talk through the BiPAP mask and feels that his breathing is stable at this time. He was initiated on LEVOPHED in the EMD and upon arrival to the ICU this was quickly changed to NEOSYNEPHERINE. Unable to obtain measurable blood pressure on arrival to the ICU and patient was immediately prepped for arterial line and CVL access. See separate procedure notes. He is accompanied by his . Overall the patient appears to be in full cardiogenic shock with last EF 20% at best, he is with pulmonary edema and dusky fingertips and cool extremities, with very weak pulses. Did discuss the case at the bedside with his and Dr. Turner (Sheet Metal Installer). understands that this he is gravely ill at this time and likely with high mortality. She understands that we will continue full support at this time and we are hopeful that he will rebound. Will try to stave off intubation. 2030- did have another discussion with patient and at bedside as he is reached medical maximal support and will either improve or worsen, and placing him on a ventilator at this point will not likely benefit him as his heart is still severely weak, and he is likely to suffer ang intubation arrest or arrest following intubation. He made hand gestures that he did with his was pointed to mask and then to straight line and hands up. His agreed that if she is able to talk to him and be with him that she doesn't want him to suffer and he said prior times he did not want to be on full life support. We changed his code status to DNR/DNI and elected for morphine to keep him from having air hunger. We will continue support until , which is likely imminent at this juncture in time. Assessment: I presented to the patients room for evaluation. Upon assessment, the patient was found to be in a terminal state. Pupils were fixed and dilated without respo nse. No palpable pulses appreciated. No spontaneous breaths noted. Heart sounds were absent. No response to painful stimuli. Time of : 2113 as pronounced by myself. Family present at bedside. Appropriate response to grief appreciated. Condolences provided. Questions were addressed and emotional support was provided. Patients primary service was contacted and made aware of patient demise- 2112. Pronouncement section of the Certificate was filled out and signed by myself. Cause of : Primary - Cardiogenic Shock Secondary - Cardiomyoapthy Contributing Causes of - Congestive Heart failure Please feel free to contact me with any questions regarding the above-mentioned course. Date and Time of Date of : 05/08/23 Time of : 21:13 Contributing Factors (1) Acute respiratory failure: (2) Cardiogenic shock: (3) Pulmonary edema: (4) Elevated lactic acid level: (5) NSVT (nonsustained ventricular tachycardia): (6) Atrial fibrillation with rapid ventricular response: (7) Cholecystitis: (8) DM type 2 (diabetes mellitus, type 2): Summary Additional details: Patient continued to suffer hemodynamic failure in setting of vasopressor and inotropic therapy. Discussion with family and patient regarding intubation in regards to benefiting clinical situation. As this was unlikely to assist patient recovery and with high likelihood of arresting during or prior would be high, decision was made at that time to make patient DNI as well. He continued with BiPAP support, around 2099 he became more hypotensive and hypoxic and wanted to take his mask off, we left it off so he could kiss his and placed it back on. We offered morphine to assist with air hunger and gasping as requested she didn't want him to suffer or feel pain/hypoxia, patient shortly thereafter had bradycardiat to PEA with no arterial waveform. TOD was 2112. Additional Data Attending physician: Eve Vidales MD
--- NOTE | 2023-05-09 01:29 | Discharge Summary ---
Discharge Summary Date of Service May 09, 2023 Notes For Next Care Provider Pt in the ICU Medication Changes From Visit None Admission HPI Per Admitting Provider This is an 82yo M with a PMH of chronic systolic CHF EF 25%, CAD, hypertension, hyperlipidemia, history of CVA, diabetes diet-controlled, chronic anemia, BPH, skin cancer per records history of A-fib, recent cholecystitis transferred to [place] and other medical problems listed below who presents today with shortness of breath and chest pain since this afternoon. History obtained from chart review and at bedside as patient is critically ill on BiPAP. Patient was recently admitted with findings of acute cholecystitis but due to cardiac comorbidities, it was recommended that patient transfer to [facility] for further care. Had perc drain placed for gallbladder and was discharged back home last Sunday. Was not discharged on any oral antibiotics. Lisinopril 2.5 mg PO daily, Lasix 20mg PO daily and Eliquis 5mg PO BID were stopped during admission to [facility] with instruction to touch base with primary care provider about resuming. states that patient has seemed to be in good health and able to help with chores around the house. Has been ambulating independently and even took down Bhupinder decorations outside yesterday. Earlier today, around 1330, patient developed sudden shortness of breath with associated chest pain and came to ED for further evaluation. History of [place] back in the 90s, per at bedside. No other new symptoms at home. No fever, chills, lightheadedness, nausea, vomiting, abdominal pain, dysuria, diarrhea or constipation. No lower extremity swelling, shortness of breath prior to this afternoon, per at bedside. Patient is tolerating BiPAP and feels like he is breathing a bit better. Feels weak. No CP or abdominal pain now. In ED, patient found to be in acute respiratory failure with hypotension, tachy cardia and tachypnea. BiPAP was placed and patient now satting at 95%. Received a total of 60 mg IV Lasix during time in ED due to evidence of pulmonary edema on chest x-ray but requiring Levophed to support blood pressure, which is currently 89/66. Due to initial concern for sepsis in setting of recent PERC drain placement, patient was started on empiric vancomycin, cefepime and Flagyl. Cardiology evaluated patient at bedside due to nonsustained V. tach and was started on IV amiodarone. Admission Exam Per Admitting Provider General: Alert, in distress Skin: No noted rashes or bruises Psych: mood and affect could not be determined HEENT: NC/AT, mask on face Chest: Nontender to palpation. CV: Irregular Resp: increased effort of breathing Abdomen: Soft Extremities: edema in lower extremities bilaterally. Principal Dx & Hospital Course #1 = Principal Diagnosis (1) Acute respiratory failure: (2) Cardiogenic shock: (3) Pulmonary edema: (4) Elevated lactic acid level: (5) NSVT (nonsustained ventricular tachycardia): (6) Atrial fibrillation with rapid ventricular response: (7) Cholecystitis: (8) DM type 2 (diabetes mellitus, type 2): Plan This is an 82yo M with a PMH of chronic systolic CHF EF 25%, CAD, hypertension, hyperlipidemia, history of CVA, diabetes diet-controlled, chronic anemia, BPH, skin cancer per records history of A-fib, recent cholecystitis transferred to [place] who presented with shortness of breath and chest pain since the afternoon and was found to have acute hypoxic respiratory failure in setting of pulmonary edema and cardiogenic shock. Patient transitioned from high flow oxygen to BiPAP, saturating at 95% Lasix was discontinued during admission at [facility] [place], discharged home on 05/02 with instruction to see PCP about resuming CXR with cardiomegaly and moderate pulmonary edema Received 20 mg IV Lasix in the ED but unable to receive more due to hypotension until Levophed started Requiring levophed for blood pressure support in setting of shock , lactate uptrending from 3 to 7 Was on BiPAP, initially agreeable to intubation but per discussion with ICU and cardiology was transitioned to DNR/DNI status Pt subsequently with at bedside. NSVT (nonsustained ventricular tachycardia): Atrial fibrillation with rapid ventricular response: amiodarone initiated in ED Cholecystitis Perc drain placed at [facility], discharged home last week Per reports, experienced hemorrhaging from perc tube site and Eliquis was discontinued for time being DM type 2 (diabetes mellitus, type 2) Diet controlled Plan discussed with cardiology and ICU. Discharge Exam General:laying in bed, eyes closed Psych: mood and affect could not be determined HEENT: NC/AT, head turned to the left Resp: no visible respirations Updated Medication List Medication Instructions Recorded Confirmed Type atorvastatin 80 mg tablet 80 mg PO QAM 11/26/18 05/08/23 History aspirin 81 mg tablet,delayed 81 mg PO QAM 01/03/19 05/08/23 History release metoprolol succinate 50 mg 50 mg PO QAM 07/26/20 05/08/23 History tablet,extended release 24 hr spironolactone 25 mg tablet 12.5 mg PO QAM 05/30/21 05/08/23 History finasteride 5 mg tablet 5 mg PO QAM 08/02/22 05/08/23 History tamsulosin 0.4 mg capsule 0.4 mg PO HS 08/02/22 05/08/23 History vit C 250 mg-vit E 90 mg-zinc 40 1 tab PO AMHS 05/08/23 05/08/23 History mg-copper 1 co-ryekxg-rduczl capsule (PreserVision AREDS-2) Hospital Stay Data Consultations 05/08/23 17:43 Consult Plant Tech Routine Diagnostic Imagining Performed 05/08/23 15:06 CT abd pelvis IV con only Stat CT angio chest PE protocol Stat Chest X-Ray 05/08/23 14:30 XR chest 1V portable CLINICAL HISTORY: Chest pain, nonspecific TECHNIQUE: Single frontal radiograph of the chest was obtained. Comparison: Comparison is made to chest radiograph 04/21/2023 FINDINGS: No lines and tubes are seen. Cardiomegaly is noted. There is prominence and cephalization of the vasculature with Suresh B lines seen. No evidence of pleural effusion or pneumothorax. IMPRESSION: Cardiomegaly and moderate pulmonary edema. ACT 112: Negative or not required by law. Electronically signed by: Quinten Mahmood M.D. 05/08/2023 3:34 PM Chest X-Ray 05/08/23 19:32 XR chest 1V portable CLINICAL HISTORY: line placement TECHNIQUE: Single frontal radiograph of the chest was obtained. Comparison: Comparison is made to chest radiograph 05/08/2023 FINDINGS: Right venous catheter terminates in the right atrium. Cardiomegaly is noted. Right airspace opacity is new from the prior exam. Pulmonary vascular prominence and Suresh B-lines are again seen. No evidence of pleural effusion or pneumothorax. IMPRESSION: 1. Right venous catheter terminates in the right atrium and can be withdrawn approximately 2 cm for improved positioning. 2. Cardiomegaly and moderate pulmonary edema. 3. Right airspace opacity, new from prior exam, may represent aspiration given rapidity of onset. ACT 112: Negative or not required by law. Electronically signed by: Quinten Mahmood M.D. 05/09/2023 7:09 AM Discharge Instructions Given to Patient (Per Discharging Provider) Pt Total Time Total Time Spent Total Time Spent (In Minutes): > 30 minutes
--- OUTSIDE RECORDS SUMMARY | 2023-05-09 03:58 | External Medical Summary | Continuity of Care Document ---
Author Name Unknown Organization [facility] Address [address] [place] [address] [id number] Care Team Providers Care Capability Lead Name Role Phone Adam Siddiqi Primary Care Physician [phone] [id number] Date(s): 04/25/23 - 05/02/[address] [phone] [phone] Encounter Diagnosis Cholecystitis(Discharge Diagnosis) - 04/25/23 Chronic HF (heart failure)(Discharge Diagnosis) - 04/25/23 Persistent atrial fibrillation(Discharge Diagnosis) - 04/25/23 NOREEN (acute kidney injury)(Discharge Diagnosis) - 04/25/23 Acute blood loss anemia(Discharge Diagnosis) - 04/28/23 Atrial fibrillation(Discharge Diagnosis) - 04/25/23 Discharge Disposition: Home or Self Care Attending Physician: MD Tatum Michael P Admitting Physician: MD Leal Jagdesh Referring Physician: MD Andriy, Sal Allergies, Adverse Reactions, Alerts Substance Reaction Severity Status penicillins swelling tongue became rough Active Assessment and Plan Extracted from: Title:Dayan tube change 06/20/2023. Author:Moises menezes PA-C, Holly Date:05/03/23 INTERVENTIONAL RADIOLOGY OUTPATIENT NOTE Name: NOLBERTO MCKEON Patient Number: [id number] : 1940 Date of Service: 05/03/2023 PROCEDURE: IR Cholecystostomy Tube Change SCHEDULED DATE: 06/20/2023 Diet and Medications: No food after midnight except for clear non-carbonated liquids up to 1 hour prior to arrival time. Take all prescribed medications with small sips of water except as directed below. Hold the following diuretics the morning of the procedure: Lasix (furosemide) Other Orders: Okay to continue Eliquis for routine tube change. Functional Status 05/02/23 Neurological Symptoms None ADLs Minimal assistance Facial Symmetry Symmetric Gait Steady Swallowing Difficulty None Level of Consciousness Neuro Alert Hallucinations Present None History of Fall in Last 3 Months Mcneill N o Presence of Secondary Diagnosis Mcneill Ye s Use of Ambulatory Aid Mcneill Crutches/can e/walker IV/Heparin Lock Fall Risk Mcneill Yes Gait/Transferring Fall Risk Mcneill Weak Mental Status Fall Risk Mcneill Oriented t o own ability Mcneill Fall Risk Score 60 Mcneill Fall Risk High risk Speech Pattern Clear Medications Aspir 81 Start: 04/16/23 8:46:00 EST [...] PO, Daily Start Date: 04/16/23 Status: Ordered HumaLOG Sliding Scale Low Dose Range: SSI, injection, subQ, 05/01/23 16:30:00 EST, 05/01/23 16:30:00 EST, Estimated correction need for patients using total insulin daily dose between 31 and 60 units., 04/26/23 12:07:00 EST Start Date: 05/01/23 Stop Date: 05/01/23 Status: Completed HumaLOG Sliding Scale Low Dose Range: SSI, injection, subQ, 05/01/23 22:00:00 EST, 05/01/23 22:00:00 EST, Estimated correction need for patients using total insulin daily dose between 31 and 60 units., 04/26/23 12:07:00 EST Start Date: 05/01/23 Stop Date: 05/01/23 Status: Completed HumaLOG Sliding Scale Low Dose Range: SSI, injection, subQ, 05/01/23 11:30:00 EST, 05/01/23 11:30:00 EST, Estimated correction need for patients using total insulin daily dose between 31 and 60 units., 04/26/23 12:07:00 EST Start Date: 05/01/23 Stop Date: 05/01/23 Status: Completed lisinopril 2.5 mg oral tablet Start: 04/16/23 8:46:00 EST, 1 tab, PO, Daily Start Date: 04/16/23 Status: Ordered metoprolol succinate (ER) Start: 04/16/23 8:46:00 EST, 50 mg =, PO, Daily Start Date: 04/16/23 Status: Ordered metoprolol succinate (ER) 50 mg, XL tablet, PO, 05/02/23 9:00:00 EST, 05/02/23 9:00:00 EST, Extended Release product, 04/27/23 14:16:00 EST Start Date: 05/02/23 Stop Date: 05/02/23 Status: Completed Normal Saline Flush 0.9% injectable solution Start: 05/02/23 11:35:00 EST, See Instructions, Disp# 60 each, Please flush cholecystotomy tube with 1 syringe (10 mL) daily, Pharmacy: [facility] Start Date: 05/02/23 Status: Ordered PreserVision AREDS Start: 04/16/23 8:47:00 EST, 2 daily Start Date: 04/16/23 Status: Ordered spironolactone Start: 04/16/23 8:45:00 EST, 2.5 mg =, PO, Daily Start Date: 04/16/23 Status: Ordered tamsulosin 0.4 mg oral capsule Start: 04/16/23 8:47:00 EST, 1 cap, PO, qhs Start Date: 04/16/23 Status: Ordered Mental Status 04/30/23 Primary Language Belizean 04/25/23 Communication Barrier Present Yes Problem List Condition Confirmation Course Effective Dates Status Health St atus Informant Ankle injury 1 Confirmed Active Atrial fibrillation Confirmed Active Chronic HF (heart failure) Confirmed Active Pseudogout Confirmed Active Heart disease Confirmed Active Heart failure with reduced ejection fraction Confirmed Active High cholesterol Confirmed Active Persistent atrial fibrillation Confirmed Active 1left Diagnosis Diagnosis Type Effective Dates Health Status Clinical Service Informant Cholecystitis Discharge Diagnosis 04/25/23 Non-Specified Atrial fibrillation Discharge Diagnosis 04/25/23 NOREEN (acute kidney injury) Discharge Diagnosis 04/25/23 Chronic HF (heart failure) Discharge Diagnosis 04/25/23 Persistent atrial fibrillation Discharge Diagnosis 04/25/23 Acute blood loss anemia Discharge Diagnosis 04/28/23 Non-Specified Procedures Procedure Date Related Diagnosis Body Site Status I and D 1 04/03/23 Completed Squamous Cell Carcinoma Of Forehead 2013 Completed MULT.>Colonoscopy 2009 Complet ed Mohs surgery on Nose 2007 Comp leted Repair Broken Right Hand operation 1960 Completed Appendectomy 1952 Completed Pyloric Stenosis 1941 Complete d 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 Completed 1Left knee arthroscopic I & D Results Laboratory List Name Date Glucose Meter (GLUCOSE METER) 05/02/23 Glucose Meter (GLUCOSE METER) 05/02/23 Complete Blood Count (CBC w Platelets) Comprehensive Metabolic Panel (CMP) 05/02 Glucose Meter (GLUCOSE METER) 05/01/23 Complete Blood Count (CBC w Platelets) Comprehensive Metabolic Panel (CMP) 05/01 Complete Blood Count (CBC w Platelets) Comprehensive Metabolic Panel (CMP) 04/30 Added on Lab order 04/29/23 Phos, Mg (PHOS, MG) 04/29/23 Nephrology Panel 04/28/23 Nephrology Panel 04/28/23 Added on Lab order 04/28/23 Added on Lab order 04/28/23 Magnesium Level (MAGNESIUM) 04/28/23 Partial Thromboplastin Time (PTT) 4 Prothrombin Time w/ INR (PT/INR) 04/27/23 Partial Thromboplastin Time (PTT) 4 Partial Thromboplastin Time (PTT) 4 Blood Type/Antibody Screen (for possible transfusion) 04/25/23 Blood Type (ABO/Rh) (ABO/RH) 04/25/23 Lactic Acid Level 04/25/23 Lipase Level 04/25/23 Magnesium Level 04/25/23 Prothrombin Time w/ INR (PT/INR) 04/25/23 NT-Pro BNP 04/25/23 Bilirubin, Direct (BILIRUBIN, DIRECT) Most recent to oldest [Reference Range]: 1 2 3 ABO/Rh O POSITIVE (04/25/23 11:38 AM) O POSITIVE (04/25/23 11:30 AM) Antibody Scr NEGATIVE (04/25/23 11:38 AM) Expires at 0600AM on 04/28/2023 (04/25/23 11:38 AM) # Units 0 (04/25/23 11:38 AM) R Number NRQ (04/25/23 11:38 AM) eGFR CKD-EPI [>60 mL/min/1.73 m2] 90 mL/min/1.73 m2 (05/02/23 3:50 AM) >90 mL/min/1.73 m2 (05/01/23 3:52 AM) 88 mL/min/1.73 m2 (04/30/23 5:05 AM) Blood Glucose [70-120 mg/dL] 184 mg/dL 1 *HI* (05/01/23 9:26 PM) 134 mg/dL 2 *HI* (05/01/23 4:37 PM) 203 mg/dL 3 *HI* (05/01/23 12:18 PM) Request of Physician phosphorous and magnesium levels (04/29/23 5:07 AM) AST ALT T bili (04/28/23 5:07 AM) magnesium level (04/28/23 5:06 AM) Action Taken YES (04/29/23 5:07 AM) YES (04/28/23 5:07 AM) YES (04/28/23 5:06 AM) BNP, NT-Pro [<450 pg/mL] 823 pg/mL *HI* (04/25/23 11:26 AM) Estimated CrCl 75.94 mL/min (05/02/23 4:37 AM) 85.00 mL/min (05/01/23 4:57 AM) 69.45 mL/min (04/30/23 6:07 AM) MPV [9.0-12.2 fL] 10.6 fL (05/02/23 3:50 AM) 10.5 fL (05/01/23 3:52 AM) 11.1 fL (04/30/23 5:05 AM) RDW [11.5-14.2 %] 15.6 % *HI* (05/02/23 3:50 AM) 15.5 % *HI* (05/01/23 3:52 AM) 15.6 % *HI* (04/30/23 5:05 AM) Component RED CELLS (04/25/23 11:38 AM) Anion Gap [5-14 mmol/L] 9 mmol/L (05/02/23 3:50 AM) 9 mmol/L (05/01/23 3:52 AM) 9 mmol/L (04/30/23 5:05 AM) Alb [3.5-5.2 g/dL] 2.6 g/dL *LOW* (05/02/23 3:50 AM) 2.6 g/dL *LOW* (05/01/23 3:52 AM) 3.0 g/dL *LOW* (04/30/23 5:05 AM) Alk Phos [40-130 unit/L] 157 unit/L *HI* (05/02/23 3:50 AM) 174 unit/L *HI* (05/01/23 3:52 AM) 197 unit/L *HI* (04/30/23 5:05 AM) ALT [0-41 unit/L] 176 unit/L *HI* (05/02/23 3:50 AM) 208 unit/L *HI* (05/01/23 3:52 AM) 261 unit/L *HI* (04/30/23 5:05 AM) AST [0-40 unit/L] 73 unit/L *HI* (05/02/23 3:50 AM) 85 unit/L *HI* (05/01/23 3:52 AM) 114 unit/L *HI* (04/30/23 5:05 AM) BUN [6-23 mg/dL] 14 mg/dL (05/02/23 3:50 AM) 14 mg/dL (05/01/23 3:52 AM) 18 mg/dL (04/30/23 5:05 AM) Ca [8.4-10.2 mg/dL] 8.9 mg/dL (05/02/23 3:50 AM) 8.8 mg/dL (05/01/23 3:52 AM) 9.1 mg/dL (04/30/23 5:05 AM) Cl- [98-107 mmol/L] 103 mmol/L (05/02/23 3:50 AM) 103 mmol/L (05/01/23 3:52 AM) 101 mmol/L (04/30/23 5:05 AM) HCO3 [22-29 mmol/L] 24 mmol/L (05/02/23 3:50 AM) 23 mmol/L (05/01/23 3:52 AM) 25 mmol/L (04/30/23 5:05 AM) Cret [0.70-1.30 mg/dL] 0.75 mg/dL (05/02/23 3:50 AM) 0.67 mg/dL *LOW* (05/01/23 3:52 AM) 0.82 mg/dL (04/30/23 5:05 AM) D Bili [0.0-0.3 mg/dL] 1.6 mg/dL 4 *HI* (04/25/23 11:26 AM) Glu [74-109 mg/dL] 157 mg/dL 5 *HI* (05/02/23 3:50 AM) 158 mg/dL 6 *HI* (05/01/23 3:52 AM) 163 mg/dL 7 *HI* (04/30/23 5:05 AM) Gluc Meter [74-109 mg/dL] 163 mg/dL *HI* (05/02/23 11:29 AM) 146 mg/dL *HI* (05/02/23 7:53 AM) 184 mg/dL *HI* (05/01/23 9:06 PM) Hct [39-48 %] 28.8 % *LOW* (05/02/23 3:50 AM) 29.2 % *LOW* (05/01/23 3:52 AM) 31.7 % *LOW* (04/30/23 5:05 AM) Hgb [13.0-17.0 g/dL] 9.0 g/dL *LOW* (05/02/23 3:50 AM) 9.6 g/dL *LOW* (05/01/23 3:52 AM) 10.3 g/dL *LOW* (04/30/23 5:05 AM) INR [0.9-1.1] 1.4 8 *HI* (04/27/23 3:36 PM) 1.5 9 *HI* (04/25/23 11:26 AM) K [3.5-5.1 mmol/L] 4.4 mmol/L (05/02/23 3:50 AM) 4.6 mmol/L (05/01/23 3:52 AM) 5.3 mmol/L *HI* (04/30/23 5:05 AM) Lactate [0.5-2.2 mmol/L] 1.9 mmol/L (04/25/23 11: AM) Lipase [13-60 unit/L] 38 unit/L (04/25/23 11: AM) MCH [28-33 pg] 26.8 pg *LOW* (05/02/23 3:50 AM) 27.7 pg *LOW* (05/01/23 3:52 AM) 27.8 pg *LOW* (04/30/23 5:05 AM) MCHC [32-36 g/dL] 31.3 g/dL *LOW* (05/02/23 3:50 AM) 32.9 g/dL (05/01/23 3:52 AM) 32.5 g/dL (04/30/23 5:05 AM) MCV [81-96 fL] 85.7 fL (05/02/23 3:50 AM) 84.1 fL (05/01/23 3:52 AM) 85.7 fL (04/30/23 5:05 AM) Mg [1.6-2.6 mg/dL] 2.0 mg/dL (04/29/23 5:06 AM) 2.1 mg/dL (04/28/23 5:05 AM) 2.2 mg/dL (04/25/23 11: AM) Na [136-145 mmol/L] 136 mmol/L (05/02/23 3:50 AM) 135 mmol/L *LOW* (05/01/23 3:52 AM) 135 mmol/L *LOW* (04/30/23 5:05 AM) PO4 [2.5-4.5 mg/dL] 2.4 mg/dL *LOW* (04/29/23 5:06 AM) 2.6 mg/dL (04/28/23 8:18 PM) REQUEST CREDITED mg/dL 10 (04/28/23 4:45 PM) Plts [150-350 K/uL] 279 K/uL (05/02/23 3:50 AM) 250 K/uL (05/01/23 3:52 AM) 222 K/uL (04/30/23 5:05 AM) PT [12.0-14.2 seconds] 16.8 seconds *HI* (04/27/23 3:36 PM) 18.3 seconds 11 *HI* (04/25/23 11:26 AM) PTT [23-35 seconds] 44 seconds 12 *HI* (04/27/23 3:36 PM) >200 seconds 13 *Critical High* (04/26/23 12:01 PM) 137 seconds 14 *Critical High* (04/26/23 4:01 AM) RBC [4.40-5.60 M/uL] 3.36 M/uL *LOW* (05/02/23 3:50 AM) 3.47 M/uL *LOW* (05/01/23 3:52 AM) 3.70 M/uL *LOW* (04/30/23 5:05 AM) T Bili [0.0-1.2 mg/dL] 0.8 mg/dL (05/02/23 3:50 AM) 0.9 mg/dL (05/01/23 3:52 AM) 1.2 mg/dL (04/30/23 5:05 AM) Prot [6.4-8.3 g/dL] 5.6 g/dL *LOW* (05/02/23 3:50 AM) 5.7 g/dL *LOW* (05/01/23 3:52 AM) 6.0 g/dL *LOW* (04/30/23 5:05 AM) WBC [4.0-10.4 K/uL] 10.66 K/uL *HI* (05/02/23 3:50 AM) 11.74 K/uL *HI* (05/01/23 3:52 AM) 11.59 K/uL *HI* (04/30/23 5:05 AM) 1Result Comment: Performed at: [address] [place] [address] 2Result Comment: Performed at: [address] [place] [address] 3Result Comment: Performed at: [address] [place] [address] 4Result Comment: HEMOLYZED SPECIMEN 5Result Comment: ADA recommendation for FASTING Serum/Plasma Glucose: Normal: 70-100 mg/dL Prediabetes: 100-125 mg/dL Diabetes: 126 mg/dL or higher 6Result Comment: ADA recommendation for FASTING Serum/Plasma Glucose: Normal: 70-100 mg/dL Prediabetes: 100-125 mg/dL Diabetes: 126 mg/dL or higher 7Result Comment: ADA recommendation for FASTING Serum/Plasma Glucose: Normal: 70-100 mg/dL Prediabetes: 100-125 mg/dL Diabetes: 126 mg/dL or higher 8Result Comment: Suggested therapeutic range for low-intensity Coumadin therapy for venous thromboembolism is INR 2.0-3.0 (ex: atrial fibrillation, history of TIA/stroke). For high risk patients, the suggested therapeutic range is INR 2.5-3.5 (ex: mechanical prosthetic valves). 9Result Comment: HEMOLYZED SPECIMEN Suggested therapeutic range for low-intensity Coumadin therapy for venous thromboembolism is INR 2.0-3.0 (ex: atrial fibrillation, history of TIA/stroke). For high risk patients, the suggested therapeutic range is INR 2.5-3.5 (ex: mechanical prosthetic valves). 10Result Comment: HEMOLYZED SPECIMEN COLT LOUIS RN 04/28/23 17:56 11Result Comment: HEMOLYZED SPECIMEN 12Result Comment: Heparin therapeutic range for Anti XA Activity from 0.3 to 0.7 IU/mL is 65-105 seconds. 13Result Comment: CHECKED Heparin therapeutic range for Anti XA Activity from 0.3 to 0.7 IU/mL is 65-105 seconds. Heparin contamination cannot be ruled out. Suggest recollect if clinically indicated. Phone Call Previously Documented 14Result Comment: Heparin therapeutic range for Anti XA Activity from 0.3 to 0.7 IU/mL is 65-105 seconds. CHECKED Heparin contamination cannot be ruled out. Suggest recollect if clinically indicated. Orders for Microbiology Reports Name Date Acid Fast Bacillus Cx/Smear, Fluid (AFB Culture and Smear, Fluid) 04/26/23 Anaerobe Culture w Smear, Fluid 04/26/23 Fluid Culture w Smear 04/26/23 Fungus Culture w Smear, Fluid 04/26/23 Blood Culture (Aerobic AND Anaerobic) Blood Culture (Aerobic AND Anaerobic) Microbiology Reports TEST:AFB.Culture, Fluid STATUS:Unauthenticated BODY SITE: SOURCE:Fluid COLLECTED DATE/TIME:04/26/23 2:35 PM Culture NO ACID FAST BACILLI ISOLATED AFTER 5 DAYS TEST:Anaerobe.Culture, Fluid STATUS:Auth (Verified) BODY SITE: SOURCE:Fluid COLLECTED DATE/TIME:04/26/23 2:35 PM Status FINAL 05/01/2023 TEST:Fluid.Cx STATUS:Auth (Verified) BODY SITE: SOURCE:Fluid COLLECTED DATE/TIME:04/26/23 2:35 PM Status FINAL 04/29/2023 TEST:Fungus.Culture, Fluid STATUS:Unauthenticated BODY SITE: SOURCE:Fluid COLLECTED DATE/TIME:04/26/23 2:35 PM Culture NO FUNGUS ISOLATED AFTER 8 DAYS TEST:Blood.Cx STATUS:Auth (Verified) BODY SITE: SOURCE:Blood COLLECTED DATE/TIME:04/25/23 11:26 AM Culture NO GROWTH IN 5 DAYS TEST:Blood.Cx STATUS:Auth (Verified) BODY SITE: SOURCE:Blood COLLECTED DATE/TIME:04/25/23 11:25 AM Status FINAL 04/30/2023 Radiology Reports * Exam Date Time Procedure Performing Provider Status 04/26/23 2:45 PM IR Cholecystostomy Tube Placement Sirisha Ramírez; Final Notes: (IR Cholecystostomy Tube Placement) Reason For Exam: percutaneous cholecystostomy tube IR Cholecystostomy Tube Placement EXAMINATION: IR Cholecystostomy Tube Placement CLINICAL HISTORY: percutaneous cholecystostomy tube PROCEDURES: Cholangiogram, Over The Wire Cholecystostomy Tube Placement Moderate Sedation, Physician Supervised Ultrasound Guidance for Access HISTORY: 82-year-old male with a history of Acute cholecystitis INDICATIONS: Percutaneous Management of Acute Cholecystitis PHYSICIANS: MD Panda Rodgers DO SUPERVISION: The Attending was physically present in the room and supervised the performance of the procedure. SEDATION: The risks and benefits of moderate sedation were discussed with the patient as part of the procedural informed consent process. Provider supervised intra- procedure moderate sedation was performed using a trained independent observer who monitored the patient's level of sedation and physiologic status throughout the procedure. Pre-procedure and post-procedure sedation assessments were performed inaccordance with institutional sedation policy and are documented separately in the medical record. Total Provider Sedation Supervision Time: 15 minutes. MEDICATIONS: Ceftriaxone 1 G Fentanyl 50 mcg Midazolam 0.50 mg CONTRAST: Omnipaque 350 - 5 ml DOSIMETRY: Fluoroscopy Time: 0.60 min Cumulative Dose: 14 mGy IMPLANTED DEVICES: Cook Multipurpose Drainage Catheter 10.2FR 25 cm (Reference # [id number]) SPECIMENS: Fluid for Culture. EST. BLOOD LOSS: None. COMPLICATIONS: None. SUPPORTING DOCUMENTATION: Pre-Procedure Verification (Physician/Provider) [X]: Patient Name and Verified Against Patient ID Band [X]: Written Consent Verified (Patient, Procedure, Site/Side) [ ]: Site Marking Verified (keep unchecked if not applicable) [X]: H \\T\\ P Completed (if required) Documented 04/26/2023 at 14:12:56 By Cely Li MD Pre-Procedure Verification (Nurse/Technologist) [X]: Patient Name and Verified Against Patient ID Band [X]: Written Consent Verified (Patient, Procedure, Site/Side) [ ]: Site Marking Verified (keep unchecked if not applicable) [X]: H \\T\\ P Verified (if required) Documented 04/26/2023 at 14:12:56 By Gregor Martinez RN Time Out [X]: Patient Identified by Name and [X]: Written Consent Verified (Patient,Procedure, Site/Side) [X]: Patient Positioned Correctly [X]: Patient Records Available (Order, Images) [X]: Anticipated Procedure Equipment / Devices Available [ ]: Site / Side Marking Completed (keep unchecked if not applicable) [X]: Preprocedure Medications Administered (Antibiotics,Premedications, or n/a) [X]: All team members are present and are in agreement with Time Out (not documented prior to 07/14/2017). Documented 04/26/2023 at 14:29:14 By Ashwin Villarreal RN Physician Post Procedure Sign Out [X]: Diagnosis Confirmed [X]: Performed Procedure Confirmed [X]: Specimen Identification Confirmed [X]: Patient Recovery / Post Procedure Care Concerns Discussed Documented 04/26/2023 at 14:44:04 By Cely Li MD TECHNIQUE:Following informed consent and verification of the correct patient identity and planned procedure, the anterior and right lateral abdomen was prepped and sterilely draped. From a low intercostal approach in the right mid axillary line, an 18G INRADneedle was advanced obliquely through theliver under ultrasound guidance into the gall bladder neck. An Accustick Set was placed over an 018wire. Over an Extrastiff wire, a 10FR MPD drain was placed. The pigtail was formed and locked in the gall bladder. Limited contrast was injected through the tube and spot film imaging was obtained toonly confirm appropriate tube positioning. The tube was sutured to the skin and placed to gravity drainage. FINDINGS:The cystic duct is occluded. Multiple filling defects were seen in the gall bladder compatible with stones. Dark bile was returned. A specimen was sent for culture. IMPRESSION: Successful image-guided cholecystostomy placement, as described above. PLAN: Routine tube check and possible change should be performed no sooner than 6 weeks with CVIR. Workstation ID: [id number] Final Dictated by:MD Li Nirnimesh C Dictated DT/TM:04/30/2023 6:53 Signed by:MD Li Nirnimesh C Signed (Electronic Signature):04/30/2023 6:52 p * Exam Date Time Procedure Performing Provider Status 04/26/23 10:46 AM XR Chest 1 View Neha Arriola; Final Notes: (XR Chest 1 View) Reason For Exam: eval for PNA, volume overload in HFrEF patient XR Chest 1 View EXAMINATION: XR Chest 1 View CLINICAL HISTORY: eval for PNA, volume overload in HFrEF patient COMPARISON: Outside chest CT 04/21/2023 FINDINGS: Single AP semiupright portable view the chest. Normal pulmonary vascularity. Enlarged cardiopericardial silhouette. Bibasilar atelectasis. No large pleural effusion. No pneumothorax. No acute osseousabnormality. IMPRESSION: Bibasilar atelectasis. Workstation ID: [id number] Final Dictated by:DO Lau Chase Nelson Dictated DT/TM:04/26/2023 11:21 Signed by:DO Lau Chase Nelson Signed (Electronic Signature):04/26/2023 11:20 * Exam Date Time Procedure Performing Provider Status 04/25/23 12:21 PM OO NM Abdomen Consult Jay Delgado; Final Notes: (OO NM Abdomen Consult) Reason For Exam: cholecystitis OO NM Abdomen Consult EXAMINATION: HIDA scan performed at [facility] on 04/23/2023. OO [place] Abdomen Consult CLINICAL HISTORY: Transfer from outside facility for imaging findings of cholecystitis. Study requisition (verbatim): "cholecystitis" COMPARISON: Outside facility ultrasound and CT abdomen/pelvis from 04/22/2023. TECHNIQUE: Initial Dynamic Imaging Set: After the radiopharmaceutical injection, imaging was obtained in the anterior projection using 5-minute dynamic segments for rapid review. Dynamic Imaging Time: The patient was imaged for the total of 45 minutes. Augmentation after 60 min of Dynamic Imaging: Not applicable. Static Imaging: None RADIOPHARMACEUTICAL: 5.8 mCi mebrofenin FINDINGS: Hepatic radiotracer extraction: Unremarkable. Excretion into the biliary system: Unremarkable. The gallbladder (GB) visualization: The GB did not show any activity during this study. The bowel visualization: There is physiological radiotracer transit into the small bowel, which demonstrates normal position pattern and rules out common bile duct obstruction. Biliary leakage: None IMPRESSION: There is nonvisualization of the gallbladder at 45 minutes, which is suggestive of cholecystitis. The study is not definitive for cholecystitis because the patient did not complete the full imaging set (Per discussion with the ordering provider, this patient did not could not tolerate the full examand it was terminated at [address] Hendrickson discussed findings and recommendations at 04/25/2023 1:46 PM EST with Lashae Silva via telephone. [place] Act 112: This study does not meet the requirements of [place] Act 112. Dr. [place] Hendrickson is the dictating resident. Finalized reports status indicates that the attending has reviewed the images and report, and agrees with the interpretation. Preliminary report statusshould be regarded as NOT interpreted by the attending radiologist. Workstation ID: [id number] Final Dictated by:DO Hendrickson Richard Dictated DT/TM:04/25/2023 4:47 Resident:DO Hendrickson Richard Signed by:DO Sharp Christian Signed (Electronic Signature):04/25/2023 4:46 p Vital Signs Most recent to oldest [Reference Range]: 1 2 3 Height 175.26 cm (04/25/23 12:32 PM) Patient Weight 86.8 kg (05/02/23 6:09 AM) 86.1 kg (05/01/23 6:26 AM) 85.1 kg (04/30/23 4:34 AM) Body Mass Index 26.53 kg/m2 (04/25/23 12:32 PM) Temperature [36.5-37.9 DegC] 36.3 DegC *LOW* (05/02/23 11:39 AM) 36.3 DegC *LOW* (05/02/23 7:53 AM) 36.4 DegC *LOW* (05/02/23 3:51 AM) Heart Rate 87 bpm (05/02/23 11:39 AM) 86 bpm (05/02/23 7:56 AM) 84 bpm (05/02/23 7:53 AM) Respiratory Rate 20 br/min (05/02/23 7:53 AM) 22 br/min (05/02/23 3:51 AM) 19 br/min (05/01/23 11:43 PM) Blood Pressure 101/73mmHg (05/02/23 11:39 AM) 102/67mmHg (05/02/23 7:53 AM) 105/62mmHg (05/02/23 3:51 AM) Mean Blood Pressure 83 mmHg (05/02/23 11:39 AM) 80 mmHg (05/02/23 7:53 AM) 73 mmHg (05/02/23 3:51 AM) Cuff Pulse Pressure 28 mmHg (05/02/23 11:39 AM) 35 mmHg (05/02/23 7:53 AM) 43 mmHg (05/02/23 3:51 AM) BP Location # 1 Left Arm (05/02/23 3:51 AM) Right Arm (05/01/23 7:39 PM) Right Arm (05/01/23 7:02 AM) Social History Social History Type Response Smoking Status Former Smoker, quit > 1 yr Sex Male Cardiology * Contributor_system, MUSE01: VERIFY, PERFORM Event Display: EKG Authored Date: Please click on link to see image. Pre-OP H & P * MD Jen, Cely Kim: PERFORM Event Display: Pre-OP H & P Authored Date: [id number] Interventional Radiology Pre-procedure History and Physical Patient Name: NOLBERTO MCKEON Date Of : 1940 Medical Record: [id number] Date of Service: 2023-04-26 Planned Procedure: IR Cholecystostomy Tube Placement Reason For Consult: Biliary: Cholecystostomy Tube Placement History of Present Illness: 82M w ICM & HFrEF 20-25%,A-fib on Eliquis(last dose 04/23,8AM) TRF from [facility] d/t cholecystitis,HIDA+ but incomplete. GI & EGS eval, not surg cand. Req dayan tube. 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, Iand D 04/03/2023 - Left knee arthroscopic I & D, Squamous Cell Carcinoma Of Forehead 2013, MULT.>Colonoscopy 2009, Mohs surgery on Nose 2007, Repair Broken Right Hand operation 1960, Appendectomy 1952, Pyloric Stenosis 1941, , Allergies: Penicillins Medications: Active Inpt Meds: , doxycycline 100 mg IV q12h, finasteride 5 mg PO Daily, insulin lispro (HumaLOG Sliding Scale Ultra Low) subQ q6h, meropenem 1,000 mg IV q12h, tamsulosin 0.4 mg PO qhs, Active PRN Meds: , acetaminophen (Tylenol) 650 mg PO q8h, morphine 1 mg IV Push q1h, ondansetron (Zofran) 4 mg IV Push q6h, One Time Meds: None, Active IV Meds: , Sodium Chloride 0.9% 1,000 mL (NaCl 0.9% 1,000 mL) 1,000 mL 50 mL/HR Labs: Date: 04/25/2023 Time: 13:20 BUN 66 Cr 1.33 INR 1.5 PT 18.3 Hct 35.6 Hgb 11.5 Plats 215 WBC 21.1 Other Studies: 04/22/23 CT abd, 04/23/23 HIDA scan Physical Exam: LOC / Mental Status: Awake, Alert, Oriented Airway: Mallampati Score: Class 1: Complete visualization of the soft palate Lungs: Clear Cardiac: Normal Sinus Rhythm ASA Classification: Class III: Severe systemic disease Assessment: 82M w ICM & HFrEF 20-25%,A-fib on Eliquis(last dose 04/23,8AM) TRF from [facility] d/t cholecystitis,HIDA+ but incomplete. GI & EGS eval, not surg cand. Req dayan tube. Plan: Dayan tube placement Sedation / Anesthesia Plan: Moderate Sedation Consent by Patient Electronic Signature on File Electronically Reviewed/Signed by: Cely Li MD Author Signature Dt/Tm:04/26/2023 02:19 PM Leaf Size Picker, Interventional Radiology [facility] [address], [address] RAFFAELE Delarosa [address] - [facility] * CLEMENTE Silva, Lashae Zapien: MODIFY, MODIFY, PERFORM, MODIFY, MODIFY, MODIFY, MODIFY, MODIFY, MODIFY, MODIFY, MODIFY, MODIFY Event Display: . Authored Date: [id number] Name:NOLBERTO MCKEON Patient Number:[id number] :1940 Date of Service:04/25/2023 Chief Complaint Abdominal Pain History of Present Illness Patient is an 82-year-old male with a past medical history of pyloric stenosis as an , HFrEF 20-25% with ischemic cardiomyopathy, Atrial fibrillation on Eliquis (last dose 04/23 8a),T2DM managed with dietand most recently Pseudogout s/p I/D who was transferred from [facility] forcholecystitis, possible ERCP vs cholecystostomy tube placement. Patientbeganexperiencing mild abdominal pain, nausea and decreased appetite approximately one week ago. His abdominal pain continued worsened with generalized weakness/malaise. Described the pain to be similarto what he experienced when hehad an acute appendicitis. [facility]. Patient found to have cholecystitis on CT, HIDA scan was completed this am and request placedfor transfer. [facility] Patient seen and examined in bed.Patient continues to endorse right-sided/epigastric painwith occasional episodes of episodes of nausea and vomiting. Emesis ismucus only, no bile or food. Thoughhas not eaten in multiple days.Abdominal pain worsensupon palpation and is alleviated with rest.Patient also noted a decrease in urineproduction and color, now dark orange. Denies recent fevers or chills. Denies lightheaded or dizziness, vision changes, chest pain, shortness of breath , difficulty urinating, pyuria, suprapubic tenderness, paresthesia or unilateral weakness. Endorsesgeneralized weakness and fatigue. Denies lower extremity edema. Review of Systems 14 point ROS completed and are negative unless otherwise stated above. Physical Exam Vitals & Measurements T:36.7C HR:102(Monitored) RR:25 BP:93/77 SpO2:94% Oxygen Therapy:Room air HT:175.26cm WT:81.500kg(Dosing) WT:81.5kg BMI:26.53 General:Flushed. Ill appearing Eyes:PERRL. Nonicteric ENT:Oral mucosa moist and pink. Without ulcerations Neck:No JVD. Trachea midline Cardiac:RR irregular.Atrialfib ontele. Lungs:Clear, diminished. No accessory muscle use. Nonlabored resp Abdomen:Distended UQ with pain upon palpation. Hypoactive BS.Surgical scar right UQ to mid abd. Tender with palpation.Scattered petechia Skin:Warm, dry. Left knee steri-strips in place. MSK:No edema/ 5/5 strength and sensation Neuro:A&O PPTE. Diagnostic Results Pending read of outside imaging. Assessment/Plan 82-year-old male with a past medical history of pyloric stenosis as an infant, HFrEF 20-25% with ischemic cardiomyopathy, Atrial fibrillation on Eliquis (last dose 04/23 8a), HTN,BPHand most recently Pseudogout s/p I/D who was transferred from OSH forcholecystitis, possible ERCP vs cholecystostomy tube placement. CT completed at outside hospital revealed cholecystitis. Patient started on meropenem. CT PE showedright upper lobeand left lower lobeopacity, started ondoxycycline for possible PNA. Hida scan was attempted but patient was unable to tolerate. MRCP completed prior to transfer. Patient admitted to [facility] for cholecystitis. Initial Labs T.Bili 3.5, Alk Phos, 303, AST 877, WBC 21.14, Compressor Technician 1.33, BUN 66, Na 130. CVIR consulted for possible percutaneous drain. GI consulted for choledocholithiasis. OSH imaging uploaded and pending read. 1.Cholecystitis Choledocholithiasis - Transaminitis, Hyperbilirubinemia.Suspect will resolve post Perc drain placement vs cholecystectomy.Will continue to trend CMP daily. Will monitor for s/s hepatic failure. - NPO pending possible procedure. - CVIR consulted for possible percutaneous dayan drain. GI consulted for choledocholithiasis. Recommendations appreciated. - Will continue meropenem. - mIVF 50ml/hr, will monitor closely for s/s volume overload with Hx HFrEF 2.Chronic HF (heart failure) Heart failure with a reduced ejection fraction Stable, well managed on home medications EF 20-25% - Will continue tohold home lasix, spironolactone, metoprolol XL 50mg - Daily weights, strict I&O's - Will closely monitor for s/s volume overload 3.Persistent atrial fibrillation Chronic, on Eliquis.Rate controlled on current medications Last dose 04/23 at 0800 - Metoprolol held s/d SBP <100. May consider low dose IVP for HR >110 BPM. - EKG - Anticoagulation on hold pending procedure. Previously on lovenox 80mg Q12 at OSH as bridge. 4.NOREEN (acute kidney injury) Likely secondary to dehydration related to diuresis and poor oral intake - Will start mIVF NS 50ml/hr. - Will closely monitor for s/s of volume overload Suspected PNA Asymptomatic, on room air, neg cough/fevers/SOB - Will continue Doxycycline - Incentive spirometry Q1hr WA - Encourage pulmonary toileting: Cough deep breathing exercise, IS and early ambulation. Chronic Conditions T2DM Managed OP with diet control, no home medications. - Hyperglycemic during hospitalization - Will start ultra low dose SSI Hypertension - HOLD home lisinopril and spironolactone. HLD - HOLD home atorvastatin 80mg in setting of transaminitis and hyperbilirubinemia. BPH - Continue home finasteride and flomax. Diet: NPO pending procedure. VTE Prophylaxis: Hold pending possible procedure. GI Prophylaxis: None Code Status: DNR/DNI. Living will in chart Disposition: [facility]. Patient requires close monitor, high risk for acute decompensation. Low thresholdto consult ICU if patient acutely decompensates. 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 Medications Inpatient doxycycline, 100 mg= 100 mL, IV, q12h finasteride, 5 mg= 1 tab, PO, Daily insulin lispro(HumaLOG Sliding Scale Ultra Low), SSI, subQ, q6h meropenem, 1000 mg= 50 mL, IV, q12h Sodium Chloride 0.9% 1,000 mL(NaCl 0.9% 1,000 mL), 1000 mL, IV Fluid tamsulosin, 0.4 mg= 1 cap, PO, qhs Home apixaban(Eliquis 5 mg oral tablet), 5 mg= 1 tab, PO, bid aspirin(Aspir 81) atorvastatin, 80 mg, PO, Daily finasteride(finasteride 5 mg oral tablet), 5 mg= 1 tab, PO, Daily furosemide, 20 mg, PO, Daily lisinopril(lisinopril 2.5 mg oral tablet), 2.5 mg= 1 tab, PO, Daily metoprolol(metoprolol succinate (ER)), 50 mg, PO, Daily multivitamin with minerals(PreserVision AREDS) spironolactone, 2.5 mg, PO, Daily tamsulosin(tamsulosin 0.4 mg oral capsule), 0.4 mg= 1 cap, PO, qhs Allergies penicillinsswelling, tongue became rough Social History Smoking Status Former Smoker, quit > 1 yr Family History Cancer: Unknown. Heart disease: Unknown. Stroke: Unknown. Health Status Family Member(s) Lab Results Test Name Test Result Date/Time Na 130 mmol/L 04/25/2023 11:26 EST K 4.4 mmol/L 04/25/2023 11:26 EST Cl- 95 mmol/L 04/25/2023 11:26 EST HCO3 23 mmol/L 04/25/2023 11:26 EST Anion Gap 12 mmol/L 04/25/2023 11:26 EST BUN 66 mg/dL 04/25/2023 11:26 EST Cret 1.33 mg/dL 04/25/2023 11:26 EST Estimated CrCl 45.63 mL/min 04/25/2023 12:16 EST eGFR CKD-EPI 53 mL/min/1.73 m2 04/25/2023 11:26 EST Glu 209 mg/dL 04/25/2023 11:26 EST Ca 9.4 mg/dL 04/25/2023 11:26 EST Mg 2.2 mg/dL 04/25/2023 11:26 EST WBC 21.14 K/uL 04/25/2023 11:26 EST Hgb 11.5 g/dL 04/25/2023 11:26 EST Hct 35.6 % 04/25/2023 11:26 EST RBC 4.27 M/uL 04/25/2023 11:26 EST MCV 83.4 fL 04/25/2023 11:26 EST MCHC 32.3 g/dL 04/25/2023 11:26 EST MCH 26.9 pg 04/25/2023 11:26 EST RDW 16.3 % 04/25/2023 11:26 EST Plts 215 K/uL 04/25/2023 11:26 EST MPV 10.5 fL 04/25/2023 11:26 EST INR 1.5 04/25/2023 11:26 EST PT 18.3 seconds 04/25/2023 11:26 EST Lactate 1.9 mmol/L 04/25/2023 11:26 EST ALT 936 unit/L 04/25/2023 11:26 EST T Bili 3.5 mg/dL 04/25/2023 11:26 EST Alk Phos 303 unit/L 04/25/2023 11:26 EST AST 877 unit/L 04/25/2023 11:26 EST Lipase 38 unit/L 04/25/2023 11:26 EST Alb 3.1 g/dL 04/25/2023 11:26 EST Prot 6.3 g/dL 04/25/2023 11:26 EST BNP, NT-Pro 823 pg/mL 04/25/2023 11:26 EST Gluc Meter 193 mg/dL 04/25/2023 13:11 EST Electronic Signature on File Electronically Reviewed/Signed by: CLEMENTE Vital Author Signature Dt/Tm:04/25/2023 05:43 PM Division of Internal Medicine - [facility] Electronically Reviewed/Signed by: CLEMENTE Vital Cosigner Signature Dt/Tm: 04/25/2023 06:06 PM Division of Internal Medicine - Hospitalist [facility] * CLEMENTE Silva, Lashae Zapien: PERFORM Event Display: .HP Authored Date: [id number] PEGS recommended Percutaneous Dayan tube placement by IR. Spoke with IR. Patient scheduled for 04/26in am. IR did not recommend SQ lovenox prior to procedure. Therapeutic lovenox to be held 24hrs prior to procedures. Will initiate heparin drip, CHADVasc score 6, pt high risk. Spoke with patient andwife via telephone. Risk and benefits reviewed. All questions were answered. Both in agreement with initiation of heparin gtt. Electronic Signature on File Electronically Reviewed/Signed by: CLEMENTE Vital Author Signature Dt/Tm:04/26/2023 07:26 AM Division of Internal Medicine - Hospitalist [facility] Interventional Rad Outpt Note * LIBBY Ramirez Holly: PERFORM Event Display: Interventional Rad Outpt Note Authored Date: [id number] INTERVENTIONAL RADIOLOGY OUTPATIENT NOTE Name: NOLBERTO MCKEON Patient Number: [id number] : 1940 Date of Service: 05/03/2023 PROCEDURE: IR Cholecystostomy Tube Change SCHEDULED DATE: 06/20/2023 Diet and Medications: No food after midnight except for clear non-carbonated liquids up to 1 hour prior to arrival time. Take all prescribed medications with small sips of water except as directed below. Hold the following diuretics the morning of the procedure: Lasix (furosemide) Other Orders: Okay to continue Eliquis for routine tube change. Electronic Signature on File Electronically Reviewed/Signed by: RAFFAELE Grissom Author Signature Dt/Tm:05/03/2023 10:13 AM [facility] Heart [facility] Vascular Normanna ORDOÑEZ ID General Inpt Consult * Ortega MD, Anna L: MODIFY Ortega MD, Anna L: MODIFY, MODIFY, MODIFY, MODIFY, MODIFY, MODIFY LIBBY Clark, Harry T: MODIFY Event Display: ID General Inpt Consult Authored Date: [id number] ID GENERAL INPATIENT CONSULTATION REPORT Name: NOLBERTO MCKEON Patient Number: [id number] : 1940 Date of Admission: 04/25/2023 Date of Service: 04/27/2023 REQUESTING PHYSICIAN'S NAME: MD Belle, Christina Mcallister REASON FOR CONSULTATION: Antibiotic management ASSESSMENT: 82 y/o M with a PMH of HFrEF with an EF of 20-25%, DM (diet- controlled), and a-fib. [place] [facility] [place] [facility] [place] for cholecystitis s/p cholecystostomy tube placement on 04/26 and remains on meropenem. Antimicrobials: Meropenem doxy --> 04/26 ID Issues: #Cholecystitis. Pt. presented to [facility] on 04/21 after c/o mild abdominal pain, nausea, and poor PO intake. CT showed cholecystitis. MRCP showed no choledocholithiasis. HIDA scan on 04/23 showed non-visualization of gallbladder at 45 minutes suggestive of cholecystitis and pt. was unable to tolerate full exam. The pt. was transferred to [facility] [place] for further care. EGS and GI were consulted here. -- S/p cholecystostomy tube placement on 04/26. Culture is NGTD. -- Remains on meropenem. Would recommend to continue for 5 to 7 days from 04/26. #Leukocytosis, improving. WBC is 13.34 today. #Possible pneumonia. CT at [facility] showed RUL and LLL opacity. However, pt. has no respiratory symptoms. Doxy stopped on 04/26. #NOREEN, improving. Cr is 0.86 today. #Transaminitis, likely due to above. #Post-op bleeding from cholecystostomy tube, resolving. Was previously on heparin gtt prior to procedure then Lovenox which has been stopped. #Hx of PCN allergy- per pt., developed tongue swelling and tongue was "rough" after receiving PCN in 1994. Denies taking cephalosporins as well. RECOMMENDATIONS: 1 ) Recommend to continue IV meropenem for 5 to 7 days from source control (04/26). Due to PCN allergy, limited PO options available. 2 ) Continue to monitor CBC and CMP I saw and evaluated the patient at bedside. I discussed the diagnosis and care plan for the patientwith Harry Clark Infectious Disease PA and agree with the findings and plan as written. I have edited the note above as necessary. Veena Ortega MD Leaf Size Pickerrail tractor operator Division of Infectious Diseases and Epidemiology [facility], [facility] HPI: 82 y/o M with a PMH of HFrEF with an EF of 20-25%, DM (diet controlled), a- fib. on Eliquis (last dose 04/23), and recent L knee pseudogout s/p arthroscopic I& D on 04/03/23 who presented [place] [facility] [place] from [facility] as a transfer for cholecystitis. According to the records, the pt. presented to [facility] on 04/21 after c/o mild abdominal pain, nausea, and poor PO intake. Upon arrival th [facility], CT showed cholecystitis. MRCP showed no choledocholithiasis. HIDA scan on 04/23 showed non-visualization of gallbladder at 45 minutes suggestive of cholecystitis and pt. was unable to tolerate full exam. The pt. c/o R sided/epigastric pain and occasional N/V (emesis with mucus only) as well. The pt. was placed on meropenem. There was also concern for pneumonia since CT showed RUL and LLL opacity, and the pt. was placed on doxycycline. The pt. was transferred to [facility] [place] 04[place] for further care.EGS and GI were consulted here. S/p cholecystostomy tube placement on 04/26. Culture is NGTD. The pt. remains on meropenem but doxy was stopped on 04/26. Now, infectious diseases has been consulted forfurther evaluation. Currently, the pt. is resting in bed with his and RN at bedside. Per pt., doing better today and his diet has been advanced. He was able to tolerate some mashed potatoes and a cookie. Per RN, there was significant bleeding around cholecystostomy tube site overnight and his Lovenox was stopped.Per RN, his dressing was only changed once so far today. The pt. does c/o loose stools x 3 so far today. The pt. states his symptoms started with "perspiration" at home prior to being hospitalized and poor PO intake but denies any fevers, chills, SOB, cough, chest pain, nausea, vomiting, abdominal pain, hematochezia, melena, or similar presentations in the past. PAST MEDICAL HISTORY: HFrEF, EF 20-25% DM (diet controlled) A-fib. ICM Hypertension Pseudogout s/p arthroscopic I & D of L knee on 04/03/23 BPH MOHS surgery to nose in 2007 RI in 1994 Repair of broken R hand in 1960 Appendectomy in 1953 Pyloric stenosis in 194 MEDICATIONS: Active Inpt Meds: aspirin 81 mg PO Daily enoxaparin (Lovenox) 80 mg subQ q12h finasteride 5 mg PO Daily insulin lispro (HumaLOG Sliding Scale Low) subQ ac and hs meropenem 500 mg IV q6h metoprolol (metoprolol tartrate) 2.5 mg IV q6h tamsulosin 0.4 mg PO qhs Active PRN Meds: acetaminophen (Tylenol) 650 mg PO q8h morphine 1 mg IV Push q1h ondansetron (Zofran) 4 mg IV Push q6h Active IV Meds: None Allergies and Sensitivities: penicillins(tongue became rough) penicillins(swelling) SOCIAL HISTORY: Per records, quit tobacco in 1994 FAMILY HISTORY: Non-contributory ROS: Otherwise negative except mentioned in the HPI VITAL SIGNS AND EXAM: Vitals: Last Updated 04/27/23 13:00 Weights: Last Updated 04/27/23 05:50 Date Temp Pulse BP RR SpO2 FIO2 Date Wt(kg) Wt(lb) 04/27 13:00 99 04/27 05:50 81.6 180 04/27 07:27 36.5 85 108/66 22 98 04/26 06:56 81.3 179 04/27 05:55 107 04/25 12:32 81.5 179 04/27 03:33 36.7 91 105/94 14 94 04/25 12:32 81.5 179 04/27 00:02 105 24 Hr Tmax: 36.7 at 04/27 03:33 36 Hr Tmax: 36.7 at 04/27 03:33 Vital Signs are the last 5 in the past 48 hours. Weights display the last 5 within 7 days. Initial Wt: 04/25 81.5 kg 179 lb Recorded Input Output Balance 04/27 7a-3p 572 25 547 3p-11p 0 0 0 11p-7a 0 0 0 24 Total 572 25 547 04/26 7a-3p 348 400 -51 3p-11p 291 275 16 11p-7a 474 175 299 24 Total 1114 850 264 Refer to the I-VIEW - I and O tab for details EXAM: General Appearance: NAD, well-appearing HEENT: No thrush Lungs: Slightly diminished to lower lobes. Non-labored breathing Heart: Regular rate Abdomen: Non-tender. Cholecystostomy tube intact with bloody drainage in bag and minimal bleeding on surrounding dressing Extremities: Very minimal swelling to L knee without erythema Neurologic: A & O x 3 LABS: Most Recent Lab Results over the last 24 Hours: CBC: on 04/27/2023 03:43 CMP: on 04/27/2023 03:43 10.5 134 102 41 13.3 161 207 32.8 4.0 23 0.86 Ca = 9.1 eGFR CKD-EPI: 86 Most Recent 24hr Labs as of 04/27 1148 Blood Glucose 198 H 04/27 1124 Gluc Meter 198 H 04/27 0431 Estimated CrCl 66.22 04/27 0343 MCH 27.1 L MCHC 32.0 MCV 84.5 RBC 3.88 L MPV 10.6 RDW 16.0 H Anion Gap 9 eGFR CKD-EPI 86 Alk Phos 216 H ALT 428 H AST 193 H T Bili 1.5 H Alb 2.6 L Prot 5.6 L 04/26 1435 Anaerobe.Cultur Prelim: Fluid.Cx Prelim: OTHER LABS: RELEVANT IMAGING: XR Chest 1 View 04/26/23 EXAMINATION: XR Chest 1 View CLINICAL HISTORY: eval for PNA, volume overload in HFrEF patient COMPARISON: Outside chest CT 04/21/2023 FINDINGS: Single AP semiupright portable view the chest. Normal pulmonary vascularity. Enlarged cardiopericardial silhouette. Bibasilar atelectasis. No large pleural effusion. No pneumothorax. No acute osseousabnormality. IMPRESSION: Bibasilar atelectasis. RELEVANT CULTURES: Blood cultures on 04/[address] [facility] Comobabi x 2 are NGTD Blood cultures on 04/25 are NGTD Body fluid culture from 04/26 is NGTD Electronic Signature on File CC: Veena Ortega MD [address] [place] [id number] Electronically Reviewed/Signed by: Harry Clark PA-C Author Signature Dt/Tm:04/27/2023 02:15 PM Division of Infectious Disease and Epidemiology Electronically Reviewed/Signed by: Veena Ortega MD Cosigner Signature Dt/Tm: 04/28/2023 01:16 AM Leaf Size Pickerrail tractor operator Division of Infectious Diseases and Epidemiology DT * Ortega MD, Veena Ceja: PAUL Event Display: ID General Inpt Consult Authored Date: Billing justification / Time spent on day of encounter 10minutes -----Reviewing notes, cultures, lab results, imaging, medication doses, etc. 15 minutes -----Discussing patient with ID fellow, resident, student, or CHASE on our team 10minutes -----Interviewing (if possible), examining, and counseling the patient xxminutes -----Conversation with family or other permitted surrogate xxminutes -----Reviewing imaging with Radiologist or tests with Microbiology/Pathology, etc. xx minutes -----Discussing thoughts and plans with primary team or other consultants 10 minutes -----Composing (or reviewing and editing) and finalizing this EMR note, which by necessity involves reviewing updated notes, cultures, imaging, meds, etc. Electronic Signature on File Electronically Reviewed/Signed by: Veena Ortega MD Author Signature Dt/Tm:04/28/2023 01:17 AM Leaf Size Pickerrail tractor operator Division of Infectious Diseases and Epidemiology [facility] Gastroenterology Consult note * MD Benjamín, Loco: MODIFY, MODIFY MD Ioana, Antonio: PERFORM, MODIFY MD Ioana, Antonio: MODIFY Event Display: Gastroenterology Consult Authored Date: [id number] GASTROENTEROLOGY INPATIENT CONSULTATION REPORT Name: NOLBERTO MCKEON Patient Number: [id number] : 1940 Date of Admission: 04/25/2023 Date of Service: 04/25/2023 REQUESTING PHYSICIAN'S NAME: MD Elvis, Austin REASON FOR CONSULTATION: Acute cholecystitis ASSESSMENT: 82M w/ ICMO (EF 20-25%) who presented to [facility] w/ acute cholecystitis - but given his comorbidities he was transferred [place] [facility] for treatment options (surgical vs IR). RECOMMENDATIONS: 1 ) Please consult EGS for consideration of lap cholecystectomy (acknowledging his EF is 20-25%) 2 ) If he is not a surgical candidate, percutaneous cholecystostomy drainage is appropriate 3 ) There is no role for ERCP, as his CT is not showing evidence of ductal dilation or ductal obstruction - if there is any concern a repeat MRCP may be considered, but our suspicion for biliary ductal obstruction is low and his MRCP did not reveal choledocholithiasis. 4 ) Antibiotics are appropriate, but Doxycycline will not cover typical biliary genaro and is not needed in this patient Follow Up Plan: GI to follow HPI: Patient is an 82-year-old male with a past medical history of pyloric stenosis as an , HFrEF 20-25% with ischemic cardiomyopathy, Atrial fibrillation on Eliquis (last dose 04/23 8a) and most recently Pseudogout s/p I/D who was transferred from OSH for cholecystitis. Patient began experiencing mild abdominal pain, nausea and decreased appetite approximately one week ago. His abdominal pain continued worsened with generalized weakness/malaise. Described the pain to be similar to what he experienced when he had an acute appendicitis. He presented to [facility] on 04/21. Patient found to have cholecystitis on CT, HIDA scan was completed this am and request placed for transfer. Patient admitted to [facility]. HIDA + for cholecystitis. CT does not show ductal dilation or obstruction. PAST MEDICAL HISTORY: Problems: Pseudogout Ankle injury High cholesterol Heart disease Hospital Day: 0 Surgical Hospital Day/Procedure: No procedures found MEDICATIONS: Active Inpt Meds: finasteride 5 mg PO Daily insulin lispro (HumaLOG Sliding Scale Ultra Low) subQ q6h meropenem 500 mg IV q8h tamsulosin 0.4 mg PO qhs Active PRN Meds: acetaminophen (Tylenol) 650 mg PO q8h morphine 1 mg IV Push q1h ondansetron (Zofran) 4 mg IV Push q6h Active IV Meds: Sodium Chloride 0.9% 1,000 mL (NaCl 0.9% 1,000 mL) 1,000 mL 50 mL/HR Allergies and Sensitivities: penicillins(tongue became rough) penicillins(swelling) SOCIAL HISTORY: Reviewed per EMR FAMILY HISTORY: Reviewed per EMR ROS: (Mian with an X to the left of the System if asked and negative; otherwise detail under Symptoms) System Symptoms (details) _ Constitutional _ _ Eyes _ _ Ears, Nose, Mouth, Throat _ _ Cardiovascular _ _ Respiratory _ _ Genitourinary _ _ Gastrointestinal Abd pain _ Musculoskeletal _ _ Skin _ _ Neurologic _ _ Psychiatric _ _ Endocrine _ _ Hematologic/Lymphatic _ _ Allergic/Immunologic _ VITAL SIGNS AND EXAM: Vitals Temp Pulse BP RR SpO2 FIO2 Date Wt(kg) Wt(lb) 04/25 11:13 ---- --- 93/77 -- --- --- 04/25 81.5 179 04/25 11:00 36.7 102 98/63 25 94 RA 04/25 81.5 179 24 Hr Tmax: 36.7 at 04/25 11:00 36 Hr Tmax: 36.7 at 04/25 11:00 Vital Signs are the last 5 in the past 48 hours. Weights display the last 5 within 7 days. Initial Wt: 04/25 kg 179 lb Recorded Input Output Balance 04/25 7a-3p 50 0 50 3p-11p 0 0 0 11p-7a 0 0 0 24 Total 50 0 50 04/24 7a-3p 0 0 0 3p-11p 0 0 0 11p-7a 0 0 0 24 Total 0 0 0 Refer to the I-VIEW - I and O tab for details Physical Exam: General: Well appearing in NAD, conversive and pleasant HEENT: NCAT, MMM, sclera slightly icteric Neck: Supple Cardiac: Tachycardic rate Lungs: CTAB Abdomen: Soft, TTP of epigastric area/ruq w/o rebound/guarding Extremities: WWP Neuro: Awake and alert, responsive Skin: Mild cyanosis of the skin LABS: Most Recent Lab Results over the last 24 Hours: CBC: on 04/25/2023 11:26 CMP: on 04/25/2023 11:26 11.5 130 95 66 21.1 215 209 35.6 4.4 23 1.33 Ca = 9.4 eGFR CKD-EPI: 53 LFT Results: Alk Phos = 303 on 04/25/2023 11:26 ALT = 936 on 04/25/2023 11:26 AST = 877 on 04/25/2023 11:26 Total Bili = 3.5 on 04/25/2023 11:26 Lipase = 38 on 04/25/2023 11:26 Abumin = 3.1 on 04/25/2023 11:26 Total Protein = 6.3 on 04/25/2023 11:26 Most Recent 24hr Labs as of 04/25 1331 Blood Glucose 193 H 04/25 1311 Gluc Meter 193 H 04/25 1216 Estimated CrCl 45.63 04/25 1138 ABO/Rh See Flowsheet Antibody Scr See Flowsheet Expires at 0600 See Flowsheet # Units 0 R Number See Flowsheet Component See Flowsheet 04/25 1126 Lactate 1.9 MCH 26.9 L MCHC 32.3 MCV 83.4 RBC 4.27 L MPV 10.5 RDW 16.3 H BNP, NT-Pro 823 H Anion Gap 12 Mg 2.2 eGFR CKD-EPI 53 L INR 1.5 H PT 18.3 H Alk Phos 303 H ALT 936 H AST 877 H Lipase 38 T Bili 3.5 H Alb 3.1 L Prot 6.3 L Studies: Pending or Completed in the Last 24 Hours No studies found OTHER LABS: RELEVANT IMAGING: RELEVANT CULTURES: ATTENDING I have seen and examined patient and directed all aspects of the care. I have reviewed all documentation, as well as follow up testing/plans that was ordered/recommended. I agree with documentation by my fellow/trainee. In addition , I confirmed all stout portions of the clinical examination, reviewed available work up and discussed plan of care in detail with patient/next of kin/POA/primary team. Follow up plans were also outlined in simple terms DC doxycycline Reviewed images with radiology IF EGS not planning urgent cholecystectomy, -IR for cholecystostomy tube placement Would not recommend additional imaging Electronic Signature on File Electronically Reviewed/Signed by: Antonio Triplett MD Author Signature Dt/Tm:04/25/2023 02:51 PM Resident Division of Internal Medicine Electronically Reviewed/Signed by: Antonio Triplett MD Cosigner Signature Dt/Tm: 04/25/2023 03:06 PM Resident Division of Internal Medicine Electronically Reviewed/Signed by: Loco Butts MD,FACP,FRCP,AGAF Tasia Signature Dt/Tm: 04/25/2023 05:46 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 Address: [address] [place] [address] (HOME) :1940 . Date of Admission:04/25/2023 Date of Discharge:05/02/2023 Physician:MD Tatum Michael P Service:Internal Medicine Discharge Disposition:Home Primary Care Provider/Phone: MD SIDDIQI TIMOTHY F (BUSINESS) [phone] (FAX BUSINESS) Principal Diagnosis: Cholecystitis Other Diagnoses: Chronic HF (heart failure) Persistent atrial fibrillation NOREEN (acute kidney injury) Acute blood loss anemia Atrial fibrillation Major Tests and Procedures: catheter placement/change 04/27/2023 (04/26/2023 10:46 EST XR Chest 1 View) FINDINGS: Single AP semiupright portable view the chest. Normal pulmonary vascularity. Enlarged cardiopericardial silhouette. Bibasilar atelectasis. No large pleural effusion. No pneumothorax. No acute osseousabnormality. IMPRESSION: Bibasilar atelectasis. [1] (04/26/2023 14:45 EST IR Cholecystostomy Tube Placement) TECHNIQUE:Following informed consent and verification of the correct patient identity and plannedprocedure, the anterior and right lateral abdomen was prepped and sterilely draped. From a low intercostal approach in the right mid axillary line, an 18G INRADneedle was advanced obliquely through the liver under ultrasound guidance into the gall bladder neck. An Accustick Set was placed over an 018 wire. Over an Extrastiff wire, a 10FR MPD drain was placed. The pigtail was formed and locked in the gall bladder. Limited contrast was injected through the tube and spot film imaging was obtained to only confirm appropriate tube positioning. The tube was sutured to the skin and placed to gravity drainage. FINDINGS:The cystic duct is occluded. Multiple filling defects were seen in the gall bladder compatible with stones. Dark bile was returned. A specimen was sent for culture. IMPRESSION: Successful image-guided cholecystostomy placement, as described above. [2] Lab Results Test Name Test Result Date/Time Na 136 mmol/L 05/02/2023 03:50 EST K 4.4 mmol/L 05/02/2023 03:50 EST Cl- 103 mmol/L 05/02/2023 03:50 EST HCO3 24 mmol/L 05/02/2023 03:50 EST Anion Gap 9 mmol/L 05/02/2023 03:50 EST BUN 14 mg/dL 05/02/2023 03:50 EST Cret 0.75 mg/dL 05/02/2023 03:50 EST eGFR CKD-EPI 90 mL/min/1.73 m2 05/02/2023 03:50 EST Glu 157 mg/dL 05/02/2023 03:50 EST Ca 8.9 mg/dL 05/02/2023 03:50 EST WBC 10.66 K/uL 05/02/2023 03:50 EST Hgb 9.0 g/dL 05/02/2023 03:50 EST Hct 28.8 % 05/02/2023 03:50 EST RBC 3.36 M/uL 05/02/2023 03:50 EST MCV 85.7 fL 05/02/2023 03:50 EST MCHC 31.3 g/dL 05/02/2023 03:50 EST MCH 26.8 pg 05/02/2023 03:50 EST RDW 15.6 % 05/02/2023 03:50 EST Plts 279 K/uL 05/02/2023 03:50 EST MPV 10.6 fL 05/02/2023 03:50 EST ALT 176 unit/L 05/02/2023 03:50 EST T Bili 0.8 mg/dL 05/02/2023 03:50 EST Alk Phos 157 unit/L 05/02/2023 03:50 EST AST 73 unit/L 05/02/2023 03:50 EST Alb 2.6 g/dL 05/02/2023 03:50 EST Prot 5.6 g/dL 05/02/2023 03:50 EST Hospital Course: Mr. Mckeon is a 82-year-old male with a past medical history of pyloric stenosis as an , HFrEF with EF 20-25%secondary toischemic cardiomyopathy, Atrial fibrillation on Eliquis, HTN,BPH, pseudogout, who was transferred from [facility] forcholecystitis due to his poor surgical candidacy. During his stay he was evaluated by surgical team and GI for possible cholecystectomyor ERCP with drainage, however was felt to be a poor candidate for either of these procedures, and ultimately was recommended for percutaneous cholecystostomy tube placement by IR, which was performed on 04/26. ID was consulted and recommended at least 5 days of meropenem treatment after drain was placed, which was co mpleted on the evening of 05/01.His course was complicated by acute on chronic anemia due to bloodloss from his procedure, as cholecystostomy output was noted to be sanguinous. As a result, discussion was had with the patient and he elected to hold his Eliquis despite increased stroke risk until such a time as hemoglobin stabilized and bloody output had diminished. He will continue to hold his Eliquis at time of discharge until further discussion with his PCP can occur. He was found to be hypovolemic in the setting of Lasix use and this was held during his admission. He continued with mild hypovolemia requiring intermittent fluid boluses and will continue to hold his Lasix at time of disch arge, monitoring daily weights and resuming should he gain 2-3 pounds in a day or 5 pounds in a week, or until told otherwise by his PCP. Further, his blood pressure remained appropriate despite holding home antihypertensives, which were continued to be held at time of discharge to resume as an outpatient. He will have repeat metabolic panel and CBC next week, to be followed by his PCP, and will follow up with his PCP within 7 days. He has appointment for follow up with surgical team for drain care and will have drain replacement by IR scheduled in approximately 6-7 weeks time. He will flush his drain with 10cc Normal Saline flush daily. Exam on Discharge: Vitals & Measurements: T:36.3C TMIN:36.3C TMAX:36.5C HR:87(Monitored) RR:20 BP:101/73 SpO2:98% Oxygen Therapy:Room air WT:86.8kg General:Seated in bed inNAD, alert and cooperative. Eyes: Sclera anicteric, conjunctiva without injection ENT:MMM. Oral cavity non-erythematous CV:RRR, normal S1 S2 present with no murmur. No noted LE edema. No JVD elevation. Lungs:CTA B/L with no wheezes, rales, rhonchi. No increased WOB. On RA. Abdomen:Soft, NTND, +BS, perc dayan tube with some sanguinous drainage, site c/d/i MSK:FROM, moving all extremities equally Neuro:No facial asymmetry at rest or with activation. No focal deficits. Psych:Appropriate and cooperative. Congruent affect with mood. Good insight and judgement. Skin:Warm, dry, intact, no noted rash on visualized skin NYHA Heart Failure Class: NYHA Heart Failure Class III - Moderate HF; symptomatic with minimal exertion Medication indication for use are noted under the principal diagnosis Discharge Medications: 1.Spironolactone 2.5 mg by mouth once daily. 2.Finasteride (finasteride 5 mg oral tablet) 5 mg (1 tab) by mouth once daily. 3.Apixaban (Eliquis 5 mg oral tablet) 5 mg (1 tab) by mouth 2 times daily. - HELD 4.Furosemide 20 mg by mouth once daily. - HELD 5.Metoprolol (metoprolol succinate (ER)) 50 mg by mouth once daily. 6.Tamsulosin (tamsulosin 0.4 mg oral capsule) 0.4 mg (1 cap) by mouth at bedtime. 7.Lisinopril (lisinopril 2.5 mg oral tablet) 2.5 mg (1 tab) by mouth once daily. - HELD 8.Multivitamin with minerals (PreserVision AREDS) . 2 daily. 9.Aspirin (Aspir 81) . 10.Atorvastatin 80 mg by mouth once daily. 11.Sodium chloride (Normal Saline Flush 0.9% injectable solution) See Instructions . Please flush cholecystotomy tube with 1 syringe (10 mL) daily. Allergies and Sensitivities: penicillinsswelling, tongue became rough Tests Pending: None Follow-Up Tests and Studies After Discharge: CMP, CBC to be obtained early next week and faxed to PCP Scheduled Appointments: Date/Time:Provider/Resource: May 03:30 MD Patrick Paul S Location/Instructions:Please arrive 15 minutes prior to your appointment time with [facility], [address], [address], [facility] [address] Date/Time:Provider/Resource: Jun 09:45 Arlet ABDULLAHI Location/Instructions:This appointment will take place on [facility] OnDemand or by phone as arranged by your providers office. If you have questions please contact the office at [phone]. Other Appointments: Schedule follow up with your PCP within 1 week of discharge You will be contacted to schedule follow up with Interventional Radiology for drain replacement in 6-7 weeks Discharge Services: No Post-Acute Placement(s) Listed No Post-Acute Service(s) Listed Care Instructions: You were admitted to [facility] for treatment of cholecystitis for which you had a drain placed into your gallbladder. This will remain in place and is to be flushed with 10mL of normal saline fluid flush every day. You will have follow up scheduled with the interventional radiology team for drain replacement in 6-7 weeks, and will have follow up on 06/14 with the surgery team for management of your drain. You have been provided a prescription for labs to be drawn early next week, please follow up with your PCP within 1 week as well. Please continue to HOLD your Lasix, lisinopril, and spironolactone until told otherwise by your PCP. Please weigh yourself daily, if you notice weight gain of 2-3 pounds in a day or 5 pounds in a week please resume your Lasix (water pill). A discharge summary will be sent to your primary care physician to ensure continuity of care. Please bring this discharge summary with you to your next office appointment so that your provider canreview it at that time. Follow-up appointments: 1. Keep all your follow-up appointments as already scheduled. If you cannot make an appointment, notify your provider. 2.Please follow up with your PCP within 1 week of discharge. 3. You will be contacted withyour appointment fordrain replacement. Medications: NEW MEDICATIONS None - Your medication list has been reviewed and reconciled upon discharge to ensure accuracy and continuity of care. - You are provided with a list of all your current medications at this time. Please review closely and make note of any changes. - Please take all of your medications exactly as prescribed. - Tell your primary care provider if you cannot afford your medications. - Call your primary care provider if you are having any side effects or any other problems. - Call your primary care provider before taking any over the counter medications or supplements, including herbals and vitamins, because some of these may interact with your current medications and/or make your symptoms worse. It was our pleasure to care for you during your hospitalization. Immunizations Received this Hospital Stay: None Isolation: None . Advance Directive:Living will, Health Care Power of Physician Vice President I personally spent40 minutes in discharge planning. [1]XR Chest 1 View; DO Sid Gerry Terry 04/26/2023 10:46 EST [2]IR Cholecystostomy Tube Placement; MD Jen, Cely Kim 04/26/2023 14:45 EST Electronic Signature on File CC: Adam Siddiqi MD [address] [facility] [address] * Electronically Reviewed/Signed by: Zbigniew Tatum MD Author Signature Dt/Tm:05/02/2023 12:10 PM Division of Internal Medicine - Hospitalist MPS Discharge instructions * MD Deepti, Zbigniew Parham: PERFORM Event Display: Patient Discharge Instructions Authored Date: [id number] NOLBERTO MCKEON :1940 Visit Date:04/25/2023 Patient Discharge Instructions [facility] For medical concerns, call: . Date of Admission:04/25/2023 Date of Discharge:05/02/2023 Physician:MD Deepti, Zbigniew Parham Service:Internal Medicine Discharge Disposition:Home . Advance Directive:Living will, Health Care Power of Physician Vice President Reason for Hospitalization Cholecystitis Your Diagnoses Cholecystitis Chronic HF (heart failure) Persistent atrial fibrillation NOREEN (acute kidney injury) Acute blood loss anemia Atrial fibrillation My Health Patient Portal: [employer] makes it easy for you to manage your health information online. [employer] is a free service that provides you instant, secure access to your medical information anytime, anywhere. Sign in or set up your account today at [email or web address] Thank you for allowing us to assist you with your healthcare needs. If you need additional community resources, RAFFAELE Ch can help at https://www.pa211.org. 211 can assist you in connecting with social programs based on your unique needs and locations. 211 is an anonymous search that can help you locate resources for: Food, Housing, Transportation, Goods, Education and Healthcare. Medications Patient is enrolled in Rx-to-Go Program New medications will be delivered from [facility] to patient's room at discharge: Mon-Sun from 9AM-5 PM. Medications MUST be PICKED UP at [facility] if patient is discharged Mon-Sun after 5 PM or anytime on holidays. Please note, the [facility] closes at 8 PM on weekdays and 5:30 PM on Saturdays, Sundays, and holidays. What How Much When Instructions Next Dose New sodium chloride (Normal Saline Flush 0.9% injectable solution) See instructions Please flush cholecystotomy tube with 1 syringe (10 mL) daily Pickup at [facility] Unchanged apixaban (Eliquis 5 mg oral tablet) 1 tab(s) by mouth 2 times daily PLEASE HOLD THIS MEDICATION UNTIL FOLLOW UP WITH YOUR PCP Unchanged aspirin (Aspir 81) Unchanged atorvastatin 80 Milligram by mouth Once daily Unchanged finasteride (finasteride 5 mg oral tablet) 1 tab(s) by mouth Once daily Unchanged furosemide 20 Milligram by mouth Once daily PLEASE HOLD THIS MEDICATION UNTIL FOLLOW UP WITH YOUR PCP Unchanged lisinopril (lisinopril 2.5 mg oral tablet) 1 tab(s) by mouth Once daily PLEASE HOLD THIS MEDICATION UNTIL FOLLOW UP WITH YOUR PCP Unchanged metoprolol (metoprolol succinate (ER)) 50 Milligram by mouth Once daily Unchanged multivitamin with minerals (PreserVision AREDS) 2 daily Unchanged spironolactone 2.5 Milligram by mouth Once daily Unchanged tamsulosin (tamsulosin 0.4 mg oral capsule) 1 cap by mouth At bedtime Pharmacy Information [facility]: [address] [place] [address] RAFFAELE Neal [phone] Allergies penicillinsswelling, tongue became rough What to do next Instructions From Your Doctor You were admitted to [facility] for treatment of cholecystitis for which you had a drain placed into your gallbladder. This will remain in place and is to be flushed with 10mL of normal saline fluid flush every day. You will have follow up scheduled with the interventional radiology team for drain replacement in 6-7 weeks, and will have follow up on 06/14 with the surgery team for management of your drain. You have been provided a prescription for labs to be drawn early next week, please follow up with your PCP within 1 week as well. Please continue to HOLD your Lasix, lisinopril, andEliquis until told otherwise by your PCP. Please weigh yourself daily, if you notice weight gain of 2-3 pounds in a day or 5 pounds in a week please resume your Lasix (water pill). A discharge summary will be sent to your primary care physician to ensure continuity of care. Please bring this discharge summary with you to your next office appointment so that your provider canreview it at that time. Follow-up appointments: 1. Keep all your follow-up appointments as already scheduled. If you cannot make an appointment, notify your provider. 2.Please follow up with your PCP within 1 week of discharge. 3. You will be contacted withur appointment fordrain replacement. Medications: NEW MEDICATIONS None - Your medication list has been reviewed and reconciled upon discharge to ensure accuracy and continuity of care. - You are provided with a list of all your current medications at this time. Please review closely and make note of any changes. - Please take all of your medications exactly as prescribed. - Tell your primary care provider if you cannot afford your medications. - Call your primary care provider if you are having any side effects or any other problems. - Call your primary care provider before taking any over the counter medications or supplements, including herbals and vitamins, because some of these may interact with your current medications and/or make your symptoms worse. It was our pleasure to care for you during your hospitalization. If you notice the following symptoms [facility]CP[facility] hours for symptoms including fevers (temperature>100.4 F or 38.1C), chills, intractable nausea, vomiting, diarrhea, rash, shortness of breath, bleeding, pain, redness, or other new or concerning symptoms. Foremergency and very serious health related issues please contact the careline at the number below. Depending on the issue, you may be directed to go to the emergency room. For other serious health issues such as chest pain and/or shortness of breath you may need to call 911 of go directly to the emergency room. Contact our Careline at . If unable to contact your physician and you feel it is an emergency, go to the nearest Emergency Room or call 911 Diet Instructions Regular, heart healthy diet as tolerated Activity Instructions As tolerated Follow-Up Appointments Scheduled Follow-Up Appointments Date/Time:Provider/Resource: May 03:30 MD Patrick Paul S Location/Instructions:Please arrive 15 minutes prior to your appointment time with [facility], [facility], [address], [place] [address] Date/Time:Provider/Resource: Jun 09:45 Arlet ABDULLAHI Location/Instructions:This appointment will take place on [facility] OnDemand or by phone as arranged by your providers office. If you have questions please contact the office at [phone]. You Need to Schedule the Following Appointments Follow up with your PCP within 1 week of discharge Someone Will Contact You Regarding These Appointments Follow up with Interventional Radiology for drain replacement in 6-7 weeks The Following Services Have Been Arranged for You No Post-Acute Placement(s) Listed No Post-Acute Service(s) Listed Test Results Test Name Test Result Date/Time Na 136 mmol/L 05/02/2023 03:50 EST K 4.4 mmol/L 05/02/2023 03:50 EST Cl- 103 mmol/L 05/02/2023 03:50 EST HCO3 24 mmol/L 05/02/2023 03:50 EST Anion Gap 9 mmol/L 05/02/2023 03:50 EST BUN 14 mg/dL 05/02/2023 03:50 EST Cret 0.75 mg/dL 05/02/2023 03:50 EST eGFR CKD-EPI 90 mL/min/1.73 m2 05/02/2023 03:50 EST Glu 157 mg/dL 05/02/2023 03:50 EST Ca 8.9 mg/dL 05/02/2023 03:50 EST WBC 10.66 K/uL 05/02/2023 03:50 EST Hgb 9.0 g/dL 05/02/2023 03:50 EST Hct 28.8 % 05/02/2023 03:50 EST RBC 3.36 M/uL 05/02/2023 03:50 EST MCV 85.7 fL 05/02/2023 03:50 EST MCHC 31.3 g/dL 05/02/2023 03:50 EST MCH 26.8 pg 05/02/2023 03:50 EST RDW 15.6 % 05/02/2023 03:50 EST Plts 279 K/uL 05/02/2023 03:50 EST MPV 10.6 fL 05/02/2023 03:50 EST ALT 176 unit/L 05/02/2023 03:50 EST T Bili 0.8 mg/dL 05/02/2023 03:50 EST Alk Phos 157 unit/L 05/02/2023 03:50 EST AST 73 unit/L 05/02/2023 03:50 EST Alb 2.6 g/dL 05/02/2023 03:50 EST Prot 5.6 g/dL 05/02/2023 03:50 EST Tests Pending None Procedures Performed catheter placement/change 04/27/2023 (04/26/2023 10:46 EST XR Chest 1 View) FINDINGS: Single AP semiupright portable view the chest. Normal pulmonary vascularity. Enlarged cardiopericardial silhouette. Bibasilar atelectasis. No large pleural effusion. No pneumothorax. No acute osseousabnormality. IMPRESSION: Bibasilar atelectasis. [1] (04/26/2023 14:45 EST IR Cholecystostomy Tube Placement) TECHNIQUE:Following informed consent and verification of the correct patient identity and plannedprocedure, the anterior and right lateral abdomen was prepped and sterilely draped. From a low intercostal approach in the right mid axillary line, an 18G INRADneedle was advanced obliquely through the liver under ultrasound guidance into the gall bladder neck. An Accustick Set was placed over an 018 wire. Over an Extrastiff wire, a 10FR MPD drain was placed. The pigtail was formed and locked in the gall bladder. Limited contrast was injected through the tube and spot film imaging was obtained to only confirm appropriate tube positioning. The tube was sutured to the skin and placed to gravity drainage. FINDINGS:The cystic duct is occluded. Multiple filling defects were seen in the gall bladder compatible with stones. Dark bile was returned. A specimen was sent for culture. IMPRESSION: Successful image-guided cholecystostomy placement, as described above. [2] Immunizations This Visit None Special Instructions Heart Failure Instructions Heart Failure-You were hospitalized for heart failure. The last ejection fraction of your heart [id number]%. Your heart failure care tools include the following: DIET Follow a 2000 mg sodium diet ACTIVITY Balance activity with rest periods MEDICATIONS Take all medications that you see on your discharge medication sheet WEIGHT MANAGEMENT Weigh yourself every morning, at the same time, and write it down. Bring a record of your weights to all doctor visits Your weight at discharge was 191 lb. Your goal weight is 191 lb. Compare your weights daily for rapid gain and follow the Zones Green Zone: ALL CLEAR. This zone is your goal Your symptoms are under control. Your weight has not changed by more than two pounds No swelling in feet, legs or abdomen No shortness of breath Yellow Zone: CAUTION - This zone is a warning! Use your Action Plan Weight gain of more than two or three pounds overnight or four or five pounds in a week More short of breath with ususal activity and/or more swelling of feet, ankles, hands or stomach Feeling tired--no energy Dry hacky cough--worse at night No appetite New or increased chest pain Need more pillows to sleep, or now need to sleep in a chair YELLOW ZONE ACTION PLAN Take Lasix 20mg If you have any concerns regarding your medications or your symptoms are not improving-- call your PCP Red Zone: DANGER - Act now! Short of breath while sitting still Chest pain Confusion/cannot think clearly WHAT TO DO? Call 911 or go to your local emergency room Common Emergency Awareness Tips Call 911 immediately if: experiencing any of the warning signs and symptoms of stroke: B.E. F.A.S.T. Balance: is there trouble with walking or coordination Eyes: is there double vision or visual loss Face: Smile, do both sides of face move equally Arm: Raise arms, do both arms move equally Speech: Is speech slurred or inappropriate Time: Time is critical, call 911 immediately Heart Attack Signs Chest discomfort: Most heart attacks involve discomfort in the center of the chest and lasts more than a few minutes, or goes away and comes back. It can feel like uncomfortable pressure, squeezing, fullness or pain. Discomfort in upper body: Symptoms can include pain or discomfort in one or both arms, back, neck, jaw or stomach. Shortness of breath: With or without discomfort. Other signs: Breaking out in a cold sweat, nausea, or lightheaded. Remember, MINUTES DO MATTER. If you experience any of these heart attack warning signs, call to get immediate medical attention! Education Materials How to Use an Incentive Spirometer An incentive spirometer is a tool that measures how well you are filling your lungs with each breath. Learning to take long, deep breaths using this tool can help you keep your lungs clear and active. This may help to reverse or lessen your chance of developing breathing (pulmonary) problems, especially infection. You may be asked to use a spirometer: After a surgery. If you have a lung problem or a history of smoking. After a long period of time when you have been unable to move or be active. If the spirometer includes an indicator to show the highest number that you have reached, your health care provider or respiratory therapist will help you set a goal. Keep a log of your progress as told by your health care provider. What are the risks? Breathing too quickly may cause dizziness or cause you to pass out. Take your time so you do not get dizzy or light-headed. If you are in pain, you may need to take pain medicine before doing incentive spirometry. It is harder to take a deep breath if you are having pain. How to use your incentive spirometer 1. Sit up on the edge of your bed or on a chair. 2. Hold the incentive spirometer so that it is in an upright position. 3. Before you use the spirometer, breathe out normally. 4. Place the mouthpiece in your mouth. Make sure your lips are closed tightly around it. 5. Breathe in slowly and as deeply as you can through your mouth, causing the piston or the ball to rise toward the top of the chamber. 6. Hold your breath for 35 seconds, or for as long as possible. If the spirometer includes a project coach indicator, use this to guide you in breathing. Slow down your breathing if the indicator goes above the marked areas. 7. Remove the mouthpiece from your mouth and breathe out normally. The piston or ball will return to the bottom of the chamber. 8. Rest for a few seconds, then repeat the steps 10 or more times. Take your time and take a few normal breaths between deep breaths so that you do not get dizzy or light-headed. Do this every 12 hours when you are awake. 9. If the spirometer includes a goal marker to show the highest number you have reached (best effort),use this as a goal to work toward during each repetition. 10. After each set of 10 deep breaths, cough a few times. This will help to make sure that your lungs are clear. If you have an incision on your chest or abdomen from surgery, place a pillow or a rolled-up towel firmly against the incision when you cough. This can help to reduce pain while taking deep breaths and coughing. General tips When you are able to get out of bed: Walk around often. Continue to take deep breaths and cough in order to clear your lungs. Keep using the incentive spirometer until your health care provider says it is okay to stop using it. If you have been in the hospital, you may be told to keep using the spirometer at home. Contact a health care provider if: You are having difficulty using the spirometer. You have trouble using the spirometer as often as instructed. Your pain medicine is not giving enough relief for you to use the spirometer as told. You have a fever. Get help right away if: You develop shortness of breath. You develop a cough with bloody mucus from the lungs. You have fluid or blood coming from an incision site after you cough. Summary An incentive spirometer is a tool that can help you learn to take long, deep breaths to keep your lungs clear and active. You may be asked to use a spirometer after a surgery, if you have a lung problem or a history of smoking, or if you have been inactive for a long period of time. Use your incentive spirometer as instructed every 12 hours while you are awake. If you have an incision on your chest or abdomen, place a pillow or a rolled-up towel firmly against your incision when you cough. This will help to reduce pain. Get help right away if you have shortness of breath, you cough up bloody mucus, or blood comes fromyour incision when you cough. This information is not intended to replace advice given to you by your health care provider. Make sure you discuss any questions you have with your health care provider. Document Revised: 05/10/2020 Document Reviewed: 05/10/2020 [employer] Patient Education 2022 [employer] Fall Prevention in Hospitals, Adult Being a patient in the hospital puts you at risk for falling. Falls can cause serious injury and harm, but they can be prevented. It is important to understand what puts you at risk for falling and what you and your health care team can do to prevent you from falling. If you or a loved one falls inthe hospital, it is important to tell the hospital staff about it. What increases my risk? Certain conditions and treatments may increase your risk of falling in the hospital. These include: Being in an unfamiliar environment, especially when using the bathroom at night. Having surgery. Being on bed rest. Taking many medicines or certain types of medicines, such as sleeping pills. Having tubes in place, such as IV lines or catheters. Other risk factors for falls in a hospital include: Having difficulty with hearing or vision. Having a change in thinking or behavior, such as confusion. Having depression. Having trouble with balance or feeling dizzy. Needing to use the toilet frequently. Having fallen during the past 3 months. Having low blood pressure. What are some strategies for preventing falls? If you or a loved one has to stay in the hospital: Ask about which fall prevention strategies will be in place. Speak up if the fall prevention plan changes. Ask for help moving around, especially after surgery or when not feeling well. If you have been asked to call for help when getting up, do not get up by yourself. Asking for helpto get up is for your safety, and the staff is there to help you. Wear nonskid footwear. Get up slowly, and sit at the side of the bed for a few minutes before standing up. Keep items you need close to you, such as the nurse call button or a phone, so that you do not needto reach for them. Wear eyeglasses or hearing aids if they have been prescribed. Have someone stay in the hospital with you or your loved one. Ask if sleeping pills or other medicines that can cause confusion are necessary. What does the hospital staff do to help prevent falls? Hospitals have systems in place to prevent falls and accidents, which may involve: Discussing your fall risks and making a personalized fall prevention plan. Checking in regularly to see if you need help. Placing an arm band on your wrist or a sign near your room to alert other staff of your needs. Using an alarm on your hospital bed. This is an alarm that goes off if you get out of bed and forget to call for help. Keeping the bed in a low and locked position. Keeping the area around the bed and bathroom well-lit and free from clutter. Keeping your room quiet, so that you can sleep and be well rested. Using safety equipment, such as: A belt around your waist. Walkers, crutches, and other devices for support. Safety beds, such as low beds, or cushions on the floor next to the bed. Having a staff person stay with you (one-on-one observation), even when you are using the bathroom.This is for your safety. Using video monitoring. This allows a staff member to come to you if you need help. What other actions can I take to lower my risk of falls? Check in regularly with your health care provider or pharmacist to review all medicines that you take. Make sure that you have a regular exercise program to stay fit. This will help you maintain your balance. Talk with a physical therapist or obedience trainer if recommended by your health care provider. He or she can help you improve your strength, balance, and endurance. If you are over age 65: Ask your health care provider if you need a calcium or vitamin D supplement. Have your eyes and hearing checked every year. Have your feet checked every year. Where to find more information Centers for Disease Control and Prevention: www.cdc.gov Summary Being in an unfamiliar environment, such as the hospital, increases your risk for falling. If you have been asked to call for help when getting up, do not get up by yourself. Asking for helpto get up is for your safety, and the staff is there to help you. Ask about which fall prevention strategies will be in place. Speak up if the fall prevention plan changes. If you or a loved one falls, tell the hospital staff. This is important. This information is not intended to replace advice given to you by your health care provider. Make sure you discuss any questions you have with your health care provider. Document Revised: 09/22/2020 Document Reviewed: 09/22/2020 [employer] Patient Education 2022 [employer] Surgical Drain Home Care Surgical drains are placed during surgery. They are used to get rid of the extra fluid that can build up in a wound after surgery. They can also help heal the wound. The kinds of drains include: Active drains. These use suction to pull drainage away from the wound. Drainage flows through a tube to a container outside of the body. With these drains, you need to keep the bulb or the container flat (compressed) at all times, except while being emptied. Flattening the bulb or container createssuction. One of the most common types of active drains is the Yoan-Samuels (BENJI) drain. Passive drains. These allow fluid to drain using gravity rather than suction. Drainage flows through a tube to a bandage (dressing) or a container outside of the body. These drains do not need to be emptied. One of the most common types of passive drains is the Sohail drain. Right after surgery, drainage is often bright red and a little thicker than water. It may turn yellow or pink over time and become thinner. Your health care provider may remove the drain when the drainage stops or when the amount decreases to 12 tbsp (1530 mL) in a 24-hour period. How to care for your surgical drain Care for your drain as told by your provider. Keep the skin around the drain dry and covered with adressing at all times. This can help to prevent infection. If the drain is placed at your back, or in any other wxos-gx-mwynx area, ask someone to help you change the dressing, empty the drain, and check for infection. Changing the dressing Follow instructions from your provider about how to change your dressing. Change it at least once aday. Change it more often if needed to keep the dressing dry. Make sure you: 1. Gather your supplies. These may include: Tape. Germ-free cleaning solution (sterile saline). Cotton swabs. Split gauze drain sponge: 4 x 4 inches (10 x 10 cm). Gauze square: 4 x 4 inches (10 x 10 cm). 2. Wash your hands with soap and water for at least 20 seconds before and after you change your dressing. If soap and water are not available, use hand wastewater design engineer. 3. Remove the old dressing. Avoid using scissors to do that. 4. Wash your hands with soap and water again after taking off the old dressing. 5. Use sterile saline to clean the skin around the drain. You may need to use a cotton swab to clean the skin. 6. Place the tube through the slit in a drain sponge. Place the drain sponge so that it covers your wound. 7. Place the gauze square or another drain sponge on top of the drain sponge that is on the wound. Make sure the tube is between those layers. 8. Tape the dressing to your skin. Then, tape the drainage tube to your skin 12 inches (2.55 cm)below the place where the tube enters your body. Taping keeps the tube from pulling on any stitches(sutures) that you have. 9. Wash your hands with soap and water. Write down the color of your drainage and how often you changeyour dressing. Emptying the active drain 1. Make sure you have a measuring cup that you can empty your drainage into. 2. Wash your hands with soap and water for at least 20 seconds before and after you empty your drain. If soap and water are not available, use hand wastewater design engineer. 3. Loosen any pins or clips that hold the tube in place. 4. If your provider tells you to strip the tube to prevent clots and tube blockages: Hold the tube at the skin with one hand. Use your other hand to pinch the tube with your thumb and first finger. Gently move your fingers down the tube while squeezing very lightly. This clears any drainage, clots, or tissue from the tube. You may need to do this a few times a day to keep the tube clear. Do not pull on the tube. 5. Open the bulb cap or the drain plug. Do not touch the inside of the cap or the bottom of the plug. 6. Turn the device upside down and gently squeeze. 7. Empty all of the drainage into the measuring cup. 8. Compress the bulb or the container. Replace the cap or the plug. To compress the bulb or the container, squeeze it firmly in the middle while you close the cap or plug the container. 9. Write down the amount of drainage that you have in each 24-hour period. If you have less than 2 tbsp (30 mL) of drainage during the 24 hours, contact your provider. 10. Flush the drainage down the toilet. Wash your hands with soap and water. Checking for infection Check your drain area every day for signs of infection. Check for: Redness, swelling, or pain. Warmth. Pus or a bad smell. Drainage that looks cloudy. Tenderness or pressure at the spot where the drain leaves your body. Contact a health care provider if: You have any signs of infection around your drain area. You have a fever or chills. The amount of drainage that you have stops all of a sudden, or the drainage increases rather than decreases. Your tube falls out. Your active drain does not stay compressed after you empty it. The tube gets detached from the bulb or container. This information is not intended to replace advice given to you by your health care provider. Make sure you discuss any questions you have with your health care provider. Document Revised: 10/06/2022 Document Reviewed: 10/06/2022 Elsevier Patient Education 2022 [employer] [1]XR Chest 1 View; DO Lau Chase Nelson 04/26/2023 10:46 EST [2]IR Cholecystostomy Tube Placement; MD Jen, Cely Kim 04/26/2023 14:45 EST Anesthesia records * Services, CPDI: PERFORM Event Display: Sedation & Analgesia Record Authored Date: [id number] Patient Care team information Care Team Personnel Name: MD Neeru, Adam Briggs Position: Referring DIRECT Member Role: Primary Care Provider Address: Address: [address] [place] [address] Name: Keagan Cristobal, Hector Position: Pharmacist Schedule II Member Role: Pharmacy - Lifetime Care Team Related Persons Name: TYRON MCKEON Address: home [address], [place] [id number]
--- OUTSIDE RECORDS SUMMARY | 2023-05-09 03:58 | External Medical Summary | Summary of Care ---
Author Name Unknown Organization [facility] Address [address] [place] [address] Phone [phone] Care Team Providers Care Network Solutions Architect Name Role Phone Adam Siddiqi MD Primary Care Provider + Encounter Details Date Type Department Care Team (Latest Contact Info) Description 04/22/2023 5:55 PM EST - 04/22/2023 11:59 PM EST Hospital Encounter Radiology Film File [address] [place] [address] Discharge Disposition: Home - Self Care Allergies Active Allergy Reactions Criticality Noted Date Comments Amoxicillin-Pot Clavulanate Nausea/vomiting 12/31/2018 Penicillins Other (Please comment) High 04/18/2006 "tongue gets bubbly" Last had it ampicillin 1994 documented as of this encounter (statuses as of 04/26/2023) Medications Medication Sig Dispensed Refills Start Date [...] EVERY MORNING 90 Tablet 2 04/09/2023 Active Hospital, Clinic, or Other Facility Administered [...] as of this encounter (statuses as of 04/26/2023) Active Problems Problem Noted Date Diagnosed Date [...] as of this encounter (statuses as of 04/26/2023) Resolved Problems Problem Noted Date Diagnosed Date [...] as of this encounter (statuses as of 04/26/2023) Immunizations Name Administration Dates Next Due COVID-19 [...] 0 03/05/1979 - 03/05/1994 Smokeless Tobacco: Never Alcohol Use Standard [...] 05/15/2023 8:45 AM EDT Office Visit Ophthalmology, [facility] [address] [place] [address] Gregor Solorzano DO [address] [place] [address] 07/03/2023 1:00 PM EDT Office Visit General [facility] [address] [facility] [place] [address] Adam Siddiqi MD [address] [facility] [place] [address] 09/03/2023 8:00 AM EDT Office Visit Cardiology, [facility] [address] [facility] [place] [address] Stephanie Gallo PA-C [address] [place] [address] Health Maintenance Due Date [...] this encounter Medical Devices Implanted Type Area Intelligence Specialist Device Identifier Shelf Expiration Date Model / Serial / Lot Lens 21.0 Mx60 - [id number] - [id number] Implanted:Qty: 1 on 07/19/2015 by Florencio Roblero DO at OR [facility] Left: Eye [employer] : SURGICAL 08/02/2017 MX60-21.0 / [id number] / [id number] Lens 22.0 Mx60 - [id number] - [id number] Implanted:Qty: 1 on 08/23/2015 by Florencio Roblero DO at OR [facility] Right: Eye [employer]OM[employer] : SURGICAL 01/02/2018 MX60-22.0 / [id number] / [id number] documented as of this encounter Procedures Procedure Name Priority Date/Time Associated Diagnosis Comments RADIOLOGY EXAM - US (IMAGES ONLY, NO REPORT) Routine 04/22/2023 5:55 PM EST documented in this encounter Results * RADIOLOGY EXAM - US (IMAGES ONLY, NO REPORT) (04/22/2023 5:55 PM EST) 04/22/2023 5:55 PM EST Narrative Scheduling, Silent - 04/25/2023 2:25 PM EST This is an imaging study not interpreted or resulted by a [facility] or [facility] contracted radiologist. Evelyn Black MD RAD ULTRASOUND documented in this encounter Advance Directives Latest [...] and were consensually agreed upon. Care Teams Network Solutions Architect Relationship Specialty Start Date End Date Adam Siddiqi MD [address] [place] [address] PCP - General Internal Medicine 08/15/20 documented as of this encounter
--- OUTSIDE RECORDS SUMMARY | 2023-05-09 03:58 | External Medical Summary | Summary of Care ---
Author Name Unknown Organization [facility] Address [address] [facility] [place] [address] Phone [phone] Care Team Providers Care Mold Cooler Name Role Phone Adam Siddiqi MD Primary Care Provider + Encounter Details Date Type Department Care Team (Late st Contact Info) Description 04/27/2023 Population Health External Data Unspecified Department Allergies Active Allergy Reactions Criticality Noted Date Comments Amoxicillin-Pot Clavulanate Nausea/vomiting 12/31/2018 Penicillins Other (Please comment) High 04/18/2006 "tongue gets bubbly" Last had it ampicillin 1995 documented as of this encounter (statuses as of 04/27/2023) Medications Medication Sig Dispensed Refills Start Date [...] as of this encounter (statuses as of 04/27/2023) Active Problems Problem Noted Date Diagnosed Date [...] of skin cancer 04/03/2017 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 [...] as of this encounter (statuses as of 04/27/2023) Resolved Problems Problem Noted Date Diagnosed Date [...] as of this encounter (statuses as of 04/27/2023) Immunizations Name Administration Dates Next Due COVID-19 [...] 05/15/2023 8:45 AM EDT Office Visit Ophthalmology, [facility] [address] [place] [address] Gregor Solorzano DO [address] [place] [address] 07/03/2023 1:00 PM EDT Office Visit General Internal Medicine [facility] [address] [facility] [place] [address] Adam Siddiqi MD [address] [facility] [place] [address] 09/03/2023 8:00 AM EDT Office Visit Cardiology, [facility] [address] [place] [address] Stephanie Gallo PA-C [address] [place] [address] Health Maintenance Due Date [...] this encounter Medical Devices Implanted Type Area Oncology Nurse Device Identifier Shelf Expiration Date Model / Serial / Lot Lens 21.0 Mx60 - [id number] - [id number] Implanted:Qty: 1 on 07/19/2015 by Florencio Roblero DO at OR [facility] Left: Eye [employer]OM[employer] : SURGICAL 08/02/2017 MX60-21.0 / [id number] / [id number] Lens 22.0 Mx60 - [id number] - [id number] Implanted:Qty: 1 on 08/23/2015 by Florencio Roblero DO at OR [facility] Right: Eye BAUSCH [employer] LOMB : SURGICAL 01/02/2018 MX60-22.0 / [id number] / [id number] documented as of this encounter Advance Directives [...] and were consensually agreed upon. Care Teams Mold Cooler Relationship Specialty Start Date End Date Adam Siddiqi MD [address] [facility] [address] PCP - General Internal Medicine 08/15/20 documented as of this encounter
--- OUTSIDE RECORDS SUMMARY | 2023-05-09 03:58 | External Medical Summary | Summary of Care ---
Author Name Unknown Organization [facility] Address [address] [place] [address] Phone [phone] Care Team Providers Care Nursing Program Director Name Role Phone Adam Siddiqi MD Primary Care Provider + Reason for Visit * Reason Onset Date Comments Appointment 05/04/2023 Encounter Details Date Type Department Care Team (Late st Contact Info) Description 05/04/2023 Telephone [facility] [place] [place] [address] [place] [address] [phone] Services, Scheduling [address] [place] [address] Appointment (//) Allergies Active Allergy Reactions Criticality Noted Date Comments Amoxicillin-Pot Clavulanate Nausea/vomiting 12/31/2018 Penicillins Other (Please comment) High 04/18/2006 "tongue gets bubbly" Last had it ampicillin 1995 documented as of this encounter (statuses as of 05/04/2023) Medications Medication Sig Dispensed Refills Start Date [...] as of this encounter (statuses as of 05/04/2023) Active Problems Problem Noted Date Diagnosed Date [...] of skin cancer 04/03/2017 Overview: SCC right islam - 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 [...] as of this encounter (statuses as of 05/04/2023) Resolved Problems Problem Noted Date Diagnosed Date [...] as of this encounter (statuses as of 05/04/2023) Immunizations Name Administration Dates Next Due COVID-19 [...] encounter Miscellaneous Notes * Telephone Encounter - Pee Carson OSA - 05/04/2023 12:35 PM EST Call to spouse and confirmed [place] telemed for 05/09 at 1130am, spouse agreeable documented in this encounter Plan of Treatment Upcoming Encounters Date Type Department Care Team (Late st Contact Info) Description 05/10/2023 11:00 AM EST Telemedicine [facility]ing at Home, [place] [address] [place] [address] Reema Causey PA-C [address] [place] [address] Ruth Rosales, Community Health Director Of Category Management [address] [place] [address] 05/15/2023 8:45 AM EDT Office Visit Ophthalmology, [facility] [address] [place] [address] Gregor Solorzano DO [address] [place] [address] 05/17/2023 11:20 AM EDT Office Visit General Internal Medicine [facility] [address] [place] [address] Adam Siddiqi MD [address] [place], [place] [address] 07/03/2023 1:00 PM EDT Office Visit General Internal Medicine [facility] 200 [facility] [place], [place] [address] Adam Siddiqi MD [address] [place] [address] 09/03/2023 8:00 AM EDT Office Visit Cardiology, [facility] 132 [facility] [place] [address] Stephanie Gallo PA-C 400 [facility] [place] [address] Health Maintenance Due Date Last Done [...] this encounter Medical Devices Implanted Type Area Diesel Bus Mechanic Device Identifier Shelf Expiration Date Model / Serial / Lot Lens 21.0 Mx60 - [id number] - [id number] Implanted:Qty: 1 on 07/19/2015 by Florencio Roblero DO at OR [facility] Left: Eye BAUSCH & LOMB : SURGICAL 08/02/2017 MX60-21.0 / [id number] / [id number] Lens 22.0 Mx60 - [id number] - [id number] Implanted:Qty: 1 on 08/23/2015 by Florencio Roblero DO at OR [facility] Right: Eye BAUSCH & LOMB : SURGICAL 01/02/2018 MX60-22.0 / [id number] / [id number] documented as of this encounter Advance Directives [...] and were consensually agreed upon. Care Teams Nursing Program Director Relationship Specialty Start Date End Date Adam Siddiqi MD 200 [place] [address] PCP - General Internal Medicine 08/15/20 documented as of this encounter
--- OUTSIDE RECORDS SUMMARY | 2023-05-09 03:58 | External Medical Summary | Summary of Care ---
Author Name Unknown Organization [facility] Address [address] [place] [facility] [place] [address] Phone [phone] Care Team Providers Care Stonemason Apprentice Name Role Phone Adam Siddiqi MD Primary Care Provider + Encounter Details Date Type Department Care Team (Late st Contact Info) Description 04/03/2023 Result Scan Unspecified Department <No scans attached> Allergies Active Allergy Reactions Criticality Noted Date Comments Amoxicillin-Pot Clavulanate Nausea/vomiting 12/31/2018 Penicillins Other (Please comment) High 04/18/2006 "tongue gets bubbly" Last had it ampicillin 1995 documented as of this encounter (statuses as of 05/02/2023) Medications Medication Sig Dispensed Refills Start Date [...] as of this encounter (statuses as of 05/02/2023) Active Problems Problem Noted Date Diagnosed Date [...] of skin cancer 04/03/2017 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 [address] [place] [address] Gregor Solorzano DO [address] [place] [address] 07/03/2023 1:00 PM EDT Office Visit General Internal Medicine [facility] 200 [facility] [place] [address] Adam Siddiqi MD 200 [facility] [place] [address] 09/03/2023 8:00 AM EDT Office Visit Cardiology, [facility] [address] [place] [address] Stephanie Gallo PA-C [address] [place] [address] Health Maintenance Due Date [...] this encounter Medical Devices Implanted Type Area Artificial Plastic Eye Maker Device Identifier Shelf Expiration Date Model / Serial / Lot Lens 21.0 Mx60 - [id number] - [id number] Implanted:Qty: 1 on 07/19/2015 by Florencio Roblero DO at OR [facility] Left: Eye BAUSCH & LOMB : SURGICAL 08/02/2017 MX60-21.0 / [id number] / [id number] Lens 22.0 Mx60 - [id number] - [id number] Implanted:Qty: 1 on 08/23/2015 by Florencio Roblero DO at OR [facility] Right: Eye BAUSCH & LOMB : SURGICAL 01/02/2018 MX60-22.0 / [id number] / [id number] documented as of this encounter Procedures Procedure Name Priority Date/Time Associated Diagnosis Comments OUTSIDE LAB RESULTS 04/03/2023 documented in this encounter Results * OUTSIDE LAB RESULTS (04/03/2023) 04/03/2023 No Physician Data Unknown LABORATORY documented in this encounter Advance Directives Latest [...] and were consensually agreed upon. Care Teams Stonemason Apprentice Relationship Specialty Start Date End Date Adam Siddiqi MD 200 [place] [address] PCP - General Internal Medicine 08/15/20 documented as of this encounter
--- OUTSIDE RECORDS SUMMARY | 2023-05-09 03:58 | External Medical Summary | Summary of Care ---
Author Name Unknown Organization [facility] Address [address] [place] [address] Phone [phone] Care Team Providers Care Bee Raiser Name Role Phone Adam Siddiqi MD Primary Care Provider + Reason for Visit * Reason Onset Date Comments Hospital Follow-Up 05/03/2023 Encounter Details Date Type Department Care Team (Late st Contact Info) Description 05/03/2023 [facility]phone [facility] [address] [place] [address] Adam Siddiqi MD [address] [place] [address] Hospital Follow-Up Allergies Active Allergy Reactions Criticality Noted Date Comments Amoxicillin-Pot Clavulanate Nausea/vomiting 12/31/2018 Penicillins Other (Please comment) High 04/18/2006 "tongue gets bubbly" Last had it ampicillin 1995 documented as of this encounter (statuses as of 05/07/2023) Medications Medication Sig Dispensed Refills Start Date [...] (Lasix)Indications:He art failure, systolic, due to CAD ([facility]) Take 1 Tablet by mouth in the [...] as of this encounter (statuses as of 05/07/2023) Active Problems Problem Noted Date Diagnosed Date [...] of skin cancer 04/03/2017 Overview: SCC right rastafari - 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 [...] as of this encounter (statuses as of 05/07/2023) Resolved Problems Problem Noted Date Diagnosed Date [...] as of this encounter (statuses as of 05/07/2023) Immunizations Name Administration Dates Next Due COVID-19 [...] encounter Miscellaneous Notes * Telephone Encounter - Oleg Saleh OSA - 05/07/2023 8:43 AM EST Pt scheduled for 05/16 * Telephone Encounter - Amy Mayen OSA - 05/03/2023 9:15 AM EST No Appointments Available Patient declined appointments?: No What Visit Type is needed? Hospital Discharge If Acute Visit Type is needed, were surrounding clinics offered to patient (Yes/No)? N/A Was patient offered appointments with other available providers (Yes/No)? Yes See Call Details? (Yes or No): Yes documented in this encounter Plan of Treatment Upcoming Encounters Date Type Department Care Team (Late st Contact Info) Description 05/10/2023 11:00 AM EST Telemedicine [facility], [place] [address] [place] [address] Reema Causey PA-C [address] [place] [address] Ruth Rosales, Community Health Compensation Specialist [address] [place] [address] 05/15/2023 8:45 AM EDT Office Visit Ophthalmology, [facility] [address] [place] [address] Gregor Solorzano DO [address] [place] [address] 05/17/2023 11:20 AM EDT Office Visit General Internal Medicine [facility] 200 [facility] [place] [address] Adam Siddiqi MD 200 [facility] [place] [address] 07/03/2023 1:00 PM EDT Office Visit General Internal Medicine [facility] 200 [facility] [place] [address] Adam Siddiqi MD 200 [facility] [place] [address] 09/03/2023 8:00 AM EDT Office Visit Cardiology, [facility] [address] [place] [address] Stephanie Gallo PA-C [address] [place] [address] [place] [address] Health Maintenance Due Date Last Done Comments COVID-19 Vaccine ( season) 2022 05/11/2020, 04/13/2020 Depression Screening 04/18/2023 04/18/2022 GFR 06/06/2023 06/05/2022, 03/05, 11/28/2021, Additional history exists HbA1c 06/20/2023 12/19/2022, 0405/2022, 11/28/2021, Additional history exists Diabetic Eye Exam [...] this encounter Medical Devices Implanted Type Area Rehabilitation Case Coordinator Device Identifier Shelf Expiration Date Model / Serial / Lot Lens 21.0 Mx60 - [id number] - [id number] Implanted:Qty: 1 on 07/19/2015 by Florencio Roblero DO at OR [facility] Left: Eye BAUSCH & LOMB : SURGICAL 08/02/2017 MX60-21.0 / [id number] / [id number] Lens 22.0 Mx60 - [id number] - [id number] Implanted:Qty: 1 on 08/23/2015 by Florencio Roblero DO at OR [facility] Right: Eye BAUSCH & LOMB : SURGICAL 01/02/2018 MX60-22.0 / [id number] / [id number] documented as of this encounter Advance Directives [...] and were consensually agreed upon. Care Teams Bee Raiser Relationship Specialty Start Date End Date Adam Siddiqi MD 200 [place] [address] PCP - General Internal Medicine 08/15/20 documented as of this encounter
--- OUTSIDE RECORDS SUMMARY | 2023-05-09 03:59 | External Medical Summary | Summary of Care ---
Author Name Unknown Organization [facility] Address [address] [place] [address] Phone [phone] Care Team Providers Care Pyroglazer Name Role Phone Adam Siddiqi MD Primary Care Provider + Encounter Details Date Type Department Care Team (Late st Contact Info) Description 04/21/2023 Orders Only Acute Care Treatment Area[address] [id number] Evelyn Black MD [address] [facility] [place] [address] Allergies Active Allergy Reactions Criticality Noted Date Comments Amoxicillin-Pot Clavulanate Nausea/vomiting 12/31/2018 Penicillins Other (Please comment) High 04/18/2006 "tongue gets bubbly" Last had it ampicillin 1995 documented as of this encounter (statuses as of 04/25/2023) Medications Medication Sig Dispensed Refills Start Date [...] as of this encounter (statuses as of 04/25/2023) Active Problems Problem Noted Date Diagnosed Date [...] as of this encounter (statuses as of 04/25/2023) Resolved Problems Problem Noted Date Diagnosed Date [...] as of this encounter (statuses as of 04/25/2023) Immunizations Name Administration Dates Next Due COVID-19 [...] 05/15/2023 8:45 AM EDT Office Visit Ophthalmology, [facility] 132 [facility] [place] [address] Gregor Solorzano, [address] [place] [address] 07/03/2023 1:00 PM EDT Office Visit General Internal Medicine [facility] 200 [facility] [place] [address] Adam [facility]iddiqi MD 200 [facility] [address] 09/03/2023 8:00 AM EDT Office Visit Cardiology, [facility] 132 [facility] [place] [address] Stephanie Gallo PA-C [address] [place] [address] [place] [phone] Health Maintenance Due Date Last Done Comments [...] this encounter Medical Devices Implanted Type Area Group Home Worker Device Identifier Shelf Expiration Date Model / Serial / Lot Lens 21.0 Mx60 - [id number] - [id number] Implanted:Qty: 1 on 07/19/2015 by Florencio Roblero DO at OR [facility] Left: Eye BAUSCH & LOMB : SURGICAL 08/02/2017 MX60-21.0 / [id number] / [id number] Lens 22.0 Mx60 - [id number] - [id number] Implanted:Qty: 1 on 08/23/2015 by Florencio Roblero DO at [facility] Right: Eye BAUSCH & LOMB : SURGICAL 01/02/2018 MX60-22.0 / [id number] / [id number] documented as of this encounter Procedures Procedure Name Priority Date/Time Associated Diagnosis Comments RADIOLOGY EXAM - CT (IMAGES ONLY, NO REPORT) Routine 04/21/2023 11:45 PM EST documented in this encounter Results * RADIOLOGY EXAM - CT (IMAGES ONLY, NO REPORT) (04/21/2023 11:45 PM EST) 04/21/2023 11:4 0 PM EST Narrative Scheduling, Silent - 04/25/2023 2:34 PM EST This is an imaging study not interpreted or resulted by a [facility] or [facility] contracted radiologist. Evelyn Black MD RAD CT documented in this encounter Advance Directives Latest [...] and were consensually agreed upon. Care Teams Pyroglazer Relationship Specialty Start Date End Date Adam Siddiqi MD [address] [place] [address] PCP - General Internal Medicine 08/15/20 documented as of this encounter
--- OUTSIDE RECORDS SUMMARY | 2023-05-09 03:59 | External Medical Summary | Summary of Care ---
Author Name Unknown Organization [facility] Address [address] [place] [address] Phone [phone] Care Team Providers Care Dewatering Filtering Supervisor Name Role Phone Adam Siddiqi MD Primary Care Provider + Encounter Details Date Type Department Care Team (Latest Contact Info) Description 04/21/2023 11:45 PM EST - 04/21/2023 11:59 PM EST Hospital Encounter Radiology Film File [address] [place] [address] Discharge Disposition: Home - Self [...] of skin cancer 04/03/2017 Overview: SCC right samaritan - 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 [...] 05/15/2023 8:45 AM EDT Office Visit Ophthalmology, [facility] [address] [place] [address] Gregor Solorzano DO [address] [place] [address] 07/03/2023 1:00 PM EDT Office Visit General Internal Medicine [facility] 200 [facility] [place] [address] Adam Siddiqi MD 200 [facility] [place] [address] 09/03/2023 8:00 AM EDT Office Visit Cardiology, [facility] 132 [facility] [place] [address] Stephanie Gallo PA-C [address] [place] [address] Health Maintenance Due Date [...] this encounter Medical Devices Implanted Type Area Substation Operator Helper Generation Device Identifier Shelf Expiration Date Model / Serial / Lot Lens 21.0 Mx60 - [id number] - [id number] Implanted:Qty: 1 on 07/19/2015 by Florencio Roblero DO at OR [facility] Left: Eye BAUSCH & LOMB : SURGICAL 08/02/2017 MX60-21.0 / [id number] / [id number] Lens 22.0 Mx60 - [id number] - [id number] Implanted:Qty: 1 on 08/23/2015 by Florencio Roblero DO at OR [facility] Right: Eye BAUSCH & LOMB : SURGICAL 01/02/2018 MX60-22.0 / [id number] / [id number] documented as of this encounter Procedures Procedure [...] interpreted or resulted by a [facility] radiologist. Evelyn Black MD RAD CT [...] and were consensually agreed upon. Care Teams Dewatering Filtering Supervisor Relationship Specialty Start Date End Date Adam Siddiqi MD 200 [place] [address] PCP - General Internal Medicine 08/15/20 documented as of this encounter
--- OUTSIDE RECORDS SUMMARY | 2023-05-09 03:59 | External Medical Summary | Summary of Care ---
Author Name Unknown Organization [facility] Address [address] [place] [address] Phone [phone] Care Team Providers Care Comfort Station Supervisor Name Role Phone Adam Siddiqi MD Primary Care Provider + Encounter Details Date Type Department Care Team (Latest Contact Info) Description 04/23/2023 2:05 PM EST - 04/23/2023 11:59 PM EST Hospital Encounter Radiology Film File [address] [place] [address] Arrived Discharge Disposition: Home - Self Care Allergies [...] of skin cancer 04/03/2017 Overview: SCC right jain - 2014 SCC [...] 05/15/2023 8:45 AM EDT Office Visit Ophthalmology, [facility] 132 [facility] [place] [address] Gregor Solorzano DO 132 [facility] [place] [address] 07/03/2023 1:00 PM EDT Office Visit General Internal Medicine [facility] 200 [facility] [place] [address] Adam Siddiqi MD 200 [facility] [place] [address] 09/03/2023 8:00 AM EDT Office Visit Cardiology, [facility] 132 [facility] [place] [address] Stephanie Gallo PA-C [address] [place] [address] Health Maintenance Due Date [...] this encounter Medical Devices Implanted Type Area Bed Worker Device Identifier Shelf Expiration Date Model / Serial / Lot Lens 21.0 Mx60 - [id number] - [id number] Implanted:Qty: 1 on 07/19/2015 by Florencio Roblero DO at OR [facility] Left: Eye BAUSCH & LOMB : SURGICAL 08/02/2017 MX60-21.0 / [id number] / [id number] Lens 22.0 Mx60 - [id number] - [id number] Implanted:Qty: 1 on 08/23/2015 by Florencio Roblero DO at OR [facility] Right: Eye BAUSCH & LOMB : SURGICAL 01/02/2018 MX60-22.0 / [id number] / [id number] documented as of this encounter Procedures Procedure Name Priority Date/Time Associated Diagnosis Comments RADIOLOGY EXAM - NUC MED (IMAGES ONLY, NO REPORT) Routine 04/23/2023 2:05 PM EST documented in this encounter Results * RADIOLOGY EXAM - NUC MED (IMAGES ONLY, NO REPORT) (04/23/2023 2:05 PM EST) 04/23/2023 2:05 PM EST Narrative Scheduling, Silent - 04/25/2023 2:29 PM EST This is an imaging study not interpreted or resulted by a [facility] or [facility] contracted radiologist. Evelyn Black MD RAD NUCLEAR MED documented in this encounter Advance Directives Latest [...] and were consensually agreed upon. Care Teams Comfort Station Supervisor Relationship Specialty Start Date End Date Adam Siddiqi MD 200 [facility] [place] [address] PCP - General Internal Medicine 08/15/20 documented as of this encounter
--- OUTSIDE RECORDS SUMMARY | 2023-05-09 03:59 | External Medical Summary | Summary of Care ---
Author Name Unknown Organization [facility] Address [address] [place] [address] Phone [phone] Care Team Providers Care Business Coordinator Name Role Phone Adam Siddiqi MD Primary Care Provider + Encounter Details Date Type Department Care Team (Latest Contact Info) Description 04/21/2023 11:05 PM EST - 04/21/2023 11:39 PM EST Hospital Encounter Radiology Film File [address] [place] [address] Discharge Disposition: Home - Self [...] of skin cancer 04/03/2017 Overview: SCC right amish - 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 [...] 05/15/2023 8:45 AM EDT Office Visit Ophthalmology, [facility] [address] [place] [address] Gregor Solorzano DO [address] [place] [address] 07/03/2023 1:00 PM EDT Office Visit General Internal Medicine [facility] [address] [facility] [place] [address] Adam Siddiqi MD [address] [facility] [place] [address] 09/03/2023 8:00 AM EDT Office Visit Cardiology, [facility] 132 [facility] [place] [address] Stephanie Gallo PA-C [address] [place] [address] Health Maintenance Due Date [...] this encounter Medical Devices Implanted Type Area Front Office Assistant Device Identifier Shelf Expiration Date Model / Serial / Lot Lens 21.0 Mx60 - [id number] - [id number] Implanted:Qty: 1 on 07/19/2015 by Florencio Roblero DO at OR [facility] Left: Eye BAUSCH & LOMB : SURGICAL 08/02/2017 MX60-21.0 / [id number] / [id number] Lens 22.0 Mx60 - [id number] - [id number] Implanted:Qty: 1 on 08/23/2015 by Florencio Roblero DO at OR [facility] Right: Eye BAUSCH & LOMB : SURGICAL 01/02/2018 MX60-22.0 / [id number] / [id number] documented as of this encounter Procedures Procedure Name Priority Date/Time Associated Diagnosis Comments RADIOLOGY EXAM - GENERAL RAD (IMAGES ONLY,NO REPORT) Routine 04/21/2023 11:05 PM EST documented in this encounter Results * RADIOLOGY EXAM - GENERAL RAD (IMAGES ONLY,NO REPORT) (04/21/2023 11:05 PM EST) 04/21/2023 11:0 4 PM EST Narrative Scheduling, Silent - 04/25/2023 2:27 PM EST This is an imaging study not interpreted or resulted by a [facility] or [facility] contracted radiologist. Evelyn Black MD RADIOLOGY (RAD GENER AL) documented in this encounter Advance Directives Latest [...] and were consensually agreed upon. Care Teams Business Coordinator Relationship Specialty Start Date End Date Adam Siddiqi MD [address] [place] [address], [place] [address] PCP - General Internal Medicine 08/15/20 documented as of this encounter
--- OUTSIDE RECORDS SUMMARY | 2023-05-09 03:59 | External Medical Summary | Summary of Care ---
Author Name Unknown Organization [facility] Address [address] [place] [address] Phone [phone] Care Team Providers Care Underground Utility Locator Name Role Phone Adam Siddiqi MD Primary Care Provider + Encounter Details Date Type Department Care Team (Latest Contact Info) Description 04/22/2023 3:05 PM EST - 04/22/2023 5:54 PM EST Hospital Encounter Radiology Film File [address] [place] [address] Discharge Disposition: Home - Self [...] 05/15/2023 8:45 AM EDT Office Visit Ophthalmology, [facility] [address] [place] [address] Gregor Solorzano DO [address] [place] [address] 07/03/2023 1:00 PM EDT Office Visit General Internal Medicine [facility] [address] [facility] [place] [address] Adam Siddiqi MD [address] [facility] [place] [address] 09/03/2023 8:00 AM EDT Office Visit Cardiology, [facility] 132 [facility] [place] [address] Stephanie Gallo PA-C [address] [place] [phone] Health Maintenance Due Date [...] this encounter Medical Devices Implanted Type Area Clinical Molecular Geneticist Device Identifier Shelf Expiration Date Model / Serial / Lot Lens 21.0 Mx60 - [id number] - [id number] Implanted:Qty: 1 on 07/19/2015 by Florencio Roblero DO at OR [facility] Left: Eye BAUSCH & LOMB : SURGICAL 08/02/2017 MX60-21.0 / [id number] / [id number] Lens 22.0 Mx60 - [id number] - [id number] Implanted:Qty: 1 on 08/23/2015 by Florencio Roblero DO at OR [facility] Right: Eye BAUSCH & LOMB : SURGICAL 01/02/2018 MX60-22.0 / [id number] / [id number] documented as of this encounter Procedures Procedure Name Priority Date/Time Associated Diagnosis Comments RADIOLOGY EXAM - CT (IMAGES ONLY, NO REPORT) Routine 04/22/2023 3:05 PM EST documented in this encounter Results * RADIOLOGY EXAM - CT (IMAGES ONLY, NO REPORT) (04/22/2023 3:05 PM EST) 04/22/2023 3:04 PM EST Narrative Scheduling, Silent - 04/25/2023 2:31 PM EST This is an imaging study not interpreted or resulted by a [facility] or [employer] contracted radiologist. Evelyn Black MD RAD CT [...] and were consensually agreed upon. Care Teams Underground Utility Locator Relationship Specialty Start Date End Date Adam Siddiqi MD 200 [place] [address] PCP - General Internal Medicine 08/15/20 documented as of this encounter
--- OUTSIDE RECORDS SUMMARY | 2023-05-09 03:59 | External Medical Summary | Summary of Care ---
Author Name Unknown Organization [facility] Address [address] [place] [address] Phone [phone] Care Team Providers Care Facility Worker Name Role Phone Adam Siddiqi MD Primary Care Provider + Encounter Details Date Type Department Care Team (Late st Contact Info) Description 04/23/2023 Orders Only Acute Care Treatment Area[address] [id number] Evelyn Black MD [address] [facility] [place] [address] Allergies Active Allergy Reactions Criticality [...] of skin cancer 04/03/2017 Overview: SCC right rastafarian - 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 [...] 05/15/2023 8:45 AM EDT Office Visit Ophthalmology, [facility] [address] [facility] [place] [address] Gregor Solorzano, [address] [place] [address] 07/03/2023 1:00 PM EDT Office Visit General Internal Medicine [facility] 200 [facility] [place] [address] Adam Siddiqi MD [facility] [address] 09/03/2023 8:00 AM EDT Office Visit Cardiology, [facility] [address] [facility] [place] [address] Stephanie Gallo PA-C [address] [place] [address] [place] [phone] Health Maintenance Due Date Last Done Comments [...] this encounter Medical Devices Implanted Type Area Mophead Sewer Device Identifier Shelf Expiration Date Model / Serial / Lot Lens 21.0 Mx60 - [id number] - [id number] Implanted:Qty: 1 on 07/19/2015 by Florencio Roblero DO at OR [facility] Left: Eye BAUSCH & LOMB : SURGICAL 08/02/2017 MX60-21.0 / [id number] / [id number] Lens 22.0 Mx60 - [id number] - [id number] Implanted:Qty: 1 on 08/23/2015 by Florencio Roblero DO at OR [facility] Right: Eye BAUSCH & LOMB : SURGICAL 01/02/2018 MX60-22.0 / [id number] / [id number] documented as of this encounter Procedures Procedure [...] interpreted or resulted by a [facility] or [employer] contracted radiologist. Evelyn Black MD RAD NUCLEAR [...] and were consensually agreed upon. Care Teams Facility Worker Relationship Specialty Start Date End Date Adam Siddiqi MD 200 [place] [address] PCP - General Internal Medicine 08/15/20 documented as of this encounter
--- OUTSIDE RECORDS SUMMARY | 2023-05-09 03:59 | External Medical Summary | Summary of Care ---
Author Name Unknown Organization [facility] Address [address] [place] [address] Phone [phone] Care Team Providers Care Diploma Maker Name Role Phone Adam Siddiqi MD Primary Care Provider + Encounter Details Date Type Department Care Team (Late st Contact Info) Description 04/21/2023 Orders Only Acute Care Treatment Area[address] [phone] Evelyn Black MD [address] [facility] [place] [address] Allergies Active Allergy Reactions Criticality [...] of skin cancer 04/03/2017 Overview: SCC right caodaism - 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 [...] 05/15/2023 8:45 AM EDT Office Visit Ophthalmology, [facility] 132 [facility] [place] [address] Gregor Solorzano, [address] [place] [address] 07/03/2023 1:00 PM EDT Office Visit General Internal Medicine [facility] 200 [facility] [place] [address] Adam [facility]iddiqi MD [facility] [address] 09/03/2023 8:00 AM EDT Office Visit Cardiology, [facility] 132 [facility] [place] [address] Stephanie Gallo PA-C [address] [place] [address] [place] [phone] Health Maintenance Due Date Last Done Comments [...] this encounter Medical Devices Implanted Type Area Php Magento Developer Device Identifier Shelf Expiration Date Model / Serial / Lot Lens 21.0 Mx60 - [id number] - [id number] Implanted:Qty: 1 on 07/19/2015 by Florencio Roblero DO at OR [facility] Left: Eye BAUSCH & LOMB : SURGICAL 08/02/2017 MX60-21.0 / [id number] / [id number] Lens 22.0 Mx60 - [id number] - [id number] Implanted:Qty: 1 on 08/23/2015 by Florencio Roblero DO at OR [facility] Right: Eye BAUSCH & LOMB : SURGICAL 01/02/2018 MX60-22.0 / [id number] / [id number] documented as of this encounter Procedures Procedure [...] interpreted or resulted by a [facility] or [employer] contracted radiologist. Evelyn Black MD RADIOLOGY (RAD [...] and were consensually agreed upon. Care Teams Diploma Maker Relationship Specialty Start Date End Date Adam Siddiqi MD 200 [place] [address] PCP - General Internal Medicine 08/15/20 documented as of this encounter
--- OUTSIDE RECORDS SUMMARY | 2023-05-09 03:59 | External Medical Summary | Summary of Care ---
Author Name Unknown Organization [facility] Address [address] [place] [address] Phone [phone] Care Team Providers Care Filenet P8 Developer Name Role Phone Adam Siddiqi MD Primary Care Provider + Encounter Details Date Type Department Care Team (Late st Contact Info) Description 04/22/2023 Orders Only Acute Care Treatment Area[address] [phone] Evelyn Black MD [address] [facility] [place] [address] Allergies Active Allergy Reactions Criticality [...] 05/15/2023 8:45 AM EDT Office Visit Ophthalmology, [facility] 132 [facility] [place] [address] Gregor Solorzano, [address] [place] [address] 07/03/2023 1:00 PM EDT Office Visit General Internal Medicine [facility] 200 [facility] [place] [address] Adam [facility]iddiqi MD [facility] [address] 09/03/2023 8:00 AM EDT Office Visit Cardiology, [facility] 132 [facility] [place] [address] Stephanie Gallo PA-C [address] [place] [address] [place] [phone] Health Maintenance Due Date Last Done Comments [...] this encounter Medical Devices Implanted Type Area Senior Maintenance Mechanic Device Identifier Shelf Expiration Date Model / Serial / Lot Lens 21.0 Mx60 - [id number] - [id number] Implanted:Qty: 1 on 07/19/2015 by Florencio Roblero DO at OR [facility] Left: Eye BAUSCH & LOMB : SURGICAL 08/02/2017 MX60-21.0 / [id number] / [id number] Lens 22.0 Mx60 - [id number] - [id number] Implanted:Qty: 1 on 08/23/2015 by Florencio Roblero DO at OR [facility] Right: Eye BAUSCH & LOMB : SURGICAL 01/02/2018 MX60-22.0 / [id number] / [id number] documented as of this encounter Procedures Procedure [...] interpreted or resulted by a [facility] or [employer] contracted radiologist. Evelyn Black MD RAD ULTRASOUND [...] and were consensually agreed upon. Care Teams Filenet P8 Developer Relationship Specialty Start Date End Date Adam Siddiqi MD [address] [place] [address] PCP - General Internal Medicine 08/15/20 documented as of this encounter
--- OUTSIDE RECORDS SUMMARY | 2023-05-09 03:59 | External Medical Summary | Summary of Care ---
Author Name Unknown Organization [facility] Address [address] [place] [address] Phone [phone] Care Team Providers Care Roller Name Role Phone Adam Siddiqi MD Primary Care Provider + Encounter Details Date Type Department Care Team (Late st Contact Info) Description 04/22/2023 Orders Only Acute Care Treatment Area[address] [phone] Evelyn Black MD [address] [facility] [place] [address] Allergies Active Allergy Reactions Criticality [...] Visit Ophthalmology, [facility] 132 [facility] [place] [address] Gregor Solorzano, [address] [place] [address] 07/03/2023 1:00 PM EDT Office Visit General Internal Medicine [facility] 200 [facility] [place] [address] Adam Siddiqi MD 200 [facility] [address] 09/03/2023 8:00 AM EDT Office Visit Cardiology, [facility] 132 [facility] [place] [address] Stephanie Gallo PA-C [address] [place] [address] [place] [phone] Health Maintenance Due Date Last Done Comments [...] this encounter Medical Devices Implanted Type Area Vinyl Welder And Fabricator Device Identifier Shelf Expiration Date Model / Serial / Lot Lens 21.0 Mx60 - [id number] - [id number] Implanted:Qty: 1 on 07/19/2015 by Florencio Roblero DO at OR [facility] Left: Eye BAUSCH & LOMB : SURGICAL 08/02/2017 MX60-21.0 / [id number] / [id number] Lens 22.0 Mx60 - [id number] - [id number] Implanted:Qty: 1 on 08/23/2015 by Florencio Roblero DO at OR [facility] Right: Eye BAUSCH & LOMB : SURGICAL 01/02/2018 MX60-22.0 / [id number] / [id number] documented as of this encounter Procedures Procedure [...] interpreted or resulted by a [facility] or [employer] contracted radiologist. Evelyn Black MD RAD CT [...] and were consensually agreed upon. Care Teams Roller Relationship Specialty Start Date End Date Adam Siddiqi MD [address] [place] [address] PCP - General Internal Medicine 08/15/20 documented as of this encounter
--- OUTSIDE RECORDS SUMMARY | 2023-05-09 03:59 | External Medical Summary | Summary of Care ---
Author Name Unknown Organization [facility] Address [address] [place] [address] Phone [phone] Care Team Providers Care Carpenter Mold Name Role Phone Adam Siddiqi MD Primary Care Provider + Encounter Details Date Type Department Care Team (Late st Contact Info) Description 04/21/2023 Orders Only Acute Care Treatment Area[address] [phone] Evelyn Black MD [address] [facility] [place] [address] Allergies Active Allergy Reactions Criticality [...] 05/15/2023 8:45 AM EDT Office Visit Ophthalmology, [facility] 132 [facility] [place] [address] Gregor Solorzano, [address] [place] [address] 07/03/2023 1:00 PM EDT Office Visit General Internal Medicine [facility] 200 [facility] [place] [address] Adam Siddiqi MD [address] [facility] [address] 09/03/2023 8:00 AM EDT Office Visit Cardiology, [facility] 132 [facility] [place] [address] Stephanie Gallo PA-C [address] [place] [address] [place] [phone] Health Maintenance Due Date Last Done Comments [...] this encounter Medical Devices Implanted Type Area Targeting Acquisition Officer Device Identifier Shelf Expiration Date Model / Serial / Lot Lens 21.0 Mx60 - [id number] - [id number] Implanted:Qty: 1 on 07/19/2015 by Florencio Roblero DO at OR [facility] Left: Eye BAUSCH & LOMB : SURGICAL 08/02/2017 MX60-21.0 / [id number] / [id number] Lens 22.0 Mx60 - [id number] - [id number] Implanted:Qty: 1 on 08/23/2015 by Florencio Roblero DO at OR [facility] Right: Eye BAUSCH & LOMB : SURGICAL 01/02/2018 MX60-22.0 / [id number] / [id number] documented as of this encounter Procedures Procedure Name Priority Date/Time Associated Diagnosis Comments RADIOLOGY EXAM - CT (IMAGES ONLY, NO REPORT) Routine 04/21/2023 11:40 PM EST documented in this encounter Results * RADIOLOGY EXAM - CT (IMAGES ONLY, NO REPORT) (04/21/2023 11:40 PM EST) 04/21/2023 11:4 0 PM EST Narrative Scheduling, Silent - 04/25/2023 2:32 PM EST This is an imaging study not interpreted or resulted by a [facility] or [employer] contracted radiologist. Evelyn Black MD RAD CT [...] and were consensually agreed upon. Care Teams Carpenter Mold Relationship Specialty Start Date End Date Adam Siddiqi MD [address] [place] [address] PCP - General Internal Medicine 08/15/20 documented as of this encounter
--- OUTSIDE RECORDS SUMMARY | 2023-05-09 03:59 | External Medical Summary | Summary of Care ---
Author Name Unknown Organization [facility] Address [address] [place] [address] Phone [phone] Care Team Providers Care Metal Model Builder Name Role Phone Adam Siddiqi MD Primary Care Provider + Encounter Details Date Type Department Care Team (Latest Contact Info) Description 04/21/2023 11:40 PM EST - 04/21/2023 11:44 PM EST Hospital Encounter Radiology Film File [address] [place] [address] Discharge Disposition: Home - Self [...] 05/15/2023 8:45 AM EDT Office Visit Ophthalmology, [facility] [address] [place] [address] Gregor Solorzano DO [address] [place] [address] 07/03/2023 1:00 PM EDT Office Visit General Internal Medicine [facility] 200 [facility] [place] [address] Adam Siddiqi MD 200 [facility] [place] [address] 09/03/2023 8:00 AM EDT Office Visit Cardiology, [facility] 132 [facility] [place] [address] Stephanie Gallo PA-C [address] [place] [phone] Health Maintenance Due Date [...] this encounter Medical Devices Implanted Type Area Field Technical Assistant Device Identifier Shelf Expiration Date Model / Serial / Lot Lens 21.0 Mx60 - [id number] - [id number] Implanted:Qty: 1 on 07/19/2015 by Florencio Roblero DO at OR [facility] Left: Eye BAUSCH & LOMB : SURGICAL 08/02/2017 MX60-21.0 / [id number] / [id number] Lens 22.0 Mx60 - [id number] - [id number] Implanted:Qty: 1 on 08/23/2015 by Florencio Roblero DO at OR [facility] Right: Eye BAUSCH & LOMB : SURGICAL 01/02/2018 MX60-22.0 / [id number] / [id number] documented as of this encounter Procedures Procedure [...] and were consensually agreed upon. Care Teams Metal Model Builder Relationship Specialty Start Date End Date Adam Siddiqi MD [address] [facility] [place] [address] PCP - General Internal Medicine 08/15/20 documented as of this encounter
[2023-05-09] MEDS ORDERED: ICU ELECTROLYTE REPLACEMENT PROTOCOL SCH (06:00)
--- NOTE | 2023-05-09 07:12 | XRay Report ---
XR chest 1V portable CLINICAL HISTORY: line placement TECHNIQUE: Single frontal radiograph of the chest was obtained. Comparison: Comparison is made to chest radiograph 05/08/2023 FINDINGS: Right venous catheter terminates in the right atrium. Cardiomegaly is noted. Right airspace opacity i s new from the prior exam. Pulmonary vascular prominence and Suresh B-lines are again seen. No eviden ce of pleural effusion or pneumothorax. IMPRESSION: 1. Right venous catheter terminates in the right atrium and can be withdrawn approximately 2 cm for improved positioning. 2. Cardiomegaly and moderate pulmonary edema. 3. Right airspace opacity, new from prior exam, may represent aspiration given rapidity of onset. ACT 112: Negative or not required by law. Electronically signed by: Quinten Mahmood M.D. 05/09/2023 7:09 AM
== END 2023-05-08 22:00 | disposition expired | DRG 291 ==
LOC: ED 14:19 → 1E 17:39
DX: I47.29 Other ventricular tachycardia; I11.0 Hypertensive heart disease with heart failure; J96.01 Acute respiratory failure with hypoxia; E11.9 Type 2 diabetes mellitus without complications; Z66 Do not resuscitate; I50.20 Unspecified systolic (congestive) heart failure; K80.10 Calculus of gallbladder with chronic cholecystitis without obstruction; Z96.89 Presence of other specified functional implants; I44.7 Left bundle-branch block, unspecified; R57.0 Cardiogenic shock; R07.9 Chest pain, unspecified; Z88.1 Allergy status to other antibiotic agents; Z79.82 Long term (current) use of aspirin; I25.10 Atherosclerotic heart disease of native coronary artery without angina pectoris; E78.5 Hyperlipidemia, unspecified; I48.19 Other persistent atrial fibrillation; Z88.0 Allergy status to penicillin; I25.2 Old myocardial infarction; I25.5 Ischemic cardiomyopathy; Z86.73 Personal history of transient ischemic attack (TIA), and cerebral infarction without residual deficits